=== PATIENT | male | born 1985 | race Caucasian/White ===

== ENCOUNTER → 2019-11-17 10:14 | Outpatient (CLI) | payer OTHER, SELFPAY ==
[2019-07-06 08:02] VITALS: BMI 32.1
[2019-11-17 10:56] LABS: Follicle Stimulating Hormone 3.7 mIU/mL
== END ==
DX: E29.1 Testicular hypofunction (principal)
CPT/HCPCS: 36415; 83001

== ENCOUNTER 2020-08-04 13:29 | Outpatient (RCR) | payer OTHER, SELFPAY ==
[2020-08-04] MEDS: COVID-19 VACC, MRNA(PFIZER)/PF 30 MCG/0.3 ML SYRINGE IM (08:17)
[2020-08-25] MEDS: COVID-19 VACC, MRNA(PFIZER)/PF 30 MCG/0.3 ML SYRINGE IM (07:58)
== END 2020-08-04 23:59 ==
LOC: IMMUN 13:29
PROVIDERS: PCP Student in an Organized Health Care Education/Training Program; Visit Provider Family Medicine
DX: Z23 Encounter for immunization (principal)
CPT/HCPCS: 0001A; 0002A; 91300

== ENCOUNTER 2021-06-16 13:05 | Outpatient (CLI) | payer OTHER, SELFPAY | END 2021-06-16 23:59 | disposition short-term general hospital (02) | LOC: LABSPEC 13:06 | PROVIDERS: PCP Student in an Organized Health Care Education/Training Program; Referring Provider Physician Assistant Surgical; Visit Provider Physician Assistant Surgical | DX: U07.1 COVID-19 (principal) | CPT/HCPCS: 87635; U0003; U0005 ==

== ENCOUNTER → 2022-01-04 | Outpatient (CLI) | payer OTHER, SELFPAY ==
--- NOTE | 2022-01-04 11:43 | NM_ITS ---
CLINICAL: 36-year-old male with history of gastroesophageal reflux disease. SEMI-SOLID PHASE 99m Tc SULFUR COLLOID GASTRIC EMPTYING STUDY COMPARISON: None available FINDINGS: The patient was administered 1.0 mCi of 99m Tc sulfur colloid mixed with oatmeal and consumed per os. Image acquisitions in the anterior -posterior projections were obtained for 60 minutes. There is prompt visualization of the stomach. There is no gastroesophageal reflux identified. The T ? emptying was calculated to be 38.72 minutes, (Normal: 12-56 minutes). NM/Gastric Emptying Study IMPRESSION: 1. NORMAL 99m Tc sulfur colloid semi-solid phase (oatmeal) gastric emptying imaging examination. A. There is normal and preserved semi-solid phase gastric emptying compared to normal controls with maintained first order kinetics throughout all components of the examination. (Ashish et al, J Nucl Med Tech 38: 186, 2010). Electronically Signed: Suhas Patterson, at 22:36 EDT ,
== END | disposition home or self-care (01) ==
PROVIDERS: PCP Student in an Organized Health Care Education/Training Program; Referring Provider Internal Medicine Gastroenterology; Visit Provider Internal Medicine Gastroenterology
DX: K21.9 Gastro-esophageal reflux disease without esophagitis (principal)
CPT/HCPCS: 78264; A9541

== ENCOUNTER 2022-04-25 08:55 | Emergency (ER) | payer OTHER, SELFPAY ==
[2022-04-25 08:56] VITALS: BP 135/86; PULSE 61; RESP 16; TEMP 35.5; O2SAT 100; BMI 30.7
--- NOTE | 2022-04-25 09:15 | CT_ITS ---
STUDY: CT ABDOMEN AND PELVIS WITHOUT CONTRAST REASON FOR EXAM: Male, 36 years old. Flank pain-LEFT RADIATION DOSAGE (If Supplied By Facility): CTDIvol = ( 9.48 ) mGy, DLP = ( 502.00 ) mGycm TECHNIQUE: Transaxial images were obtained from the dome of the diaphragm to the symphysis pubis without oral contrast, and without intravenous contrast. Sagittal and coronal images were reconstructed. Individualized dose optimization techniques were used for this CT. COMPARISON: None. FINDINGS: The visualized lung bases are unremarkable. The visualized portions of the heart are within normal limits. Normal liver. Findings suggestive of sludge or tiny gallstones along the dependent portion of the gallbladder lumen. Normal spleen. Normal pancreas. Normal bilateral adrenal glands. Scattered nonobstructive right intrarenal calculi. The largest calculus measures 3.2 mm. There is a 3 mm nonobstructive calculus in the lower pole calyx of the left kidney. There is a small hiatal hernia. Normal small intestine. There are scattered colonic diverticula consistent with diverticulosis. The appendix is visualized and appears normal. Normal abdominal aorta. Normal inferior vena cava. Normal retroperitoneum. There is a 2 mm calculi at the base of the bladder. This most likely represents a recently passed ureteral calculus. There is a small umbilical hernia containing fat. Small bilateral inguinal hernias containing fat. Loss of the normal lumbar lordosis. CT/Abdomen/Pelvis without Cont IMPRESSION: Nonobstructive bilateral intrarenal calculi. 2 mm calculus at the base of the bladder most likely representing a recently passed ureteral calculus. Electronically Signed: Tex Maldonado MD at 10:04 [facility] [[email or web address]] ,
--- NOTE | 2022-04-25 09:16 | EX.ED.DYSGE1 ---
HPI History of Present Illness Chief Complaint: Flank Pain Informant: patient Onset/Context/Timing Onset: Today and Hours (1) Context: Sudden Onset Timing: Continuous Quality: Sharp, cramping Location: Left flank and left lower quadrant Worsened by: Nothing Relieved by: Nothing Narrative Narrative: Patient presents with left flank pain that began approxi-1 hour prior to arrival. Patient states the pain is sharp and cramping. Patient states it is over the left flank and radiates into the left lower abdomen. Patient states nothing makes it worse and nothing makes it better. Patient states the pain stopped approximately 10 minutes ago. Patient admits to some nausea when he had the pain but denies any vomiting. Patient denies any dysuria or hematuria. Patient denies any fevers or chills. PFSH PFS Medical History ADHD GERD (gastroesophageal reflux disease) Hypercholesteremia Lab test negative for COVID-19 virus Tobacco use Vasectomy evaluation Home Medications sumatriptan succinate 100 mg tablet (Imitrex) 100 mg PO .X1 PRN 06/02/17 [History Last Taken Unknown] varenicline 1 mg tablet (Chantix) 1 mg PO DAILY 06/02/17 [History Last Taken Unknown] hydroxyzine HCl 25 mg tablet 25 mg PO Q6H 08/17/21 [History Last Taken Unknown] lisdexamfetamine 50 mg capsule 50 mg PO DAILY 08/17/21 [History Last Taken Unknown] rabeprazole 20 mg tablet,delayed release (AcipHex) 20 mg PO DAILY 30 days #30 tabs 01/01/22 [Rx Last Taken Unknown] Allergy/AdvReac Type Severity Reaction Status Date / Time amoxicillin Allergy Hives Verified 04/25/22 08:58 Sulfa (Sulfonamide Allergy Hives Verified 04/25/22 08:58 Antibiotics) sulfamethoxazole Allergy Hives Verified 04/25/22 08:58 [From ] trimethoprim [From ] Allergy Hives Verified 04/25/22 08:58 Social History Smoking Status: Current some day smoker tobacco type: cigarettes ROS ROS ED Constitutional Constitutional ED: Denies chills or fever(s) Eyes Eyes: Denies blurry vision or change in vision ENT ENT ED: Denies rhinorrhea or sore throat Cardiovascular Cardiovascular: Denies chest pain or palpitations Respiratory/Chest Respiratory/Chest: Denies cough or dyspnea Gastrointestinal Gastrointestinal: Reports nausea; Denies vomiting Genitourinary Genitourinary ED: Denies dysuria or hematuria Musculoskeletal Musculoskeletal: Reports back pain; Denies neck pain Integumentary Denies abscess or rash Neurologic Neurologic: Denies headache(s) or weakness Allergic/Immunologic Allergic/Immunologic ED: Denies mouth swelling or urticaria EXAM Physical Exam Const Vital Signs: 04/25/22 08:56 Temperature 96 F L Temperature Source Temporal Pulse Rate 61 Respiratory Rate 16 Blood Pressure 135/86 H Blood Pressure Mean 102 Pulse Ox 100 Oxygen Delivery Method Room Air Positive well nourished and well developed General Appearance ED: well developed and NAD HEENT Reports moist mucous membranes Neck supple and no JVD Resp normal respiratory effort and clear to auscultation bilaterally Cardio regular rate, regular rhythm and no murmurs GI normal to inspection, nondistended, normoactive bowel sounds and non-tender Palpation: soft Extremity normal to inspection General Extremety ED: Negative for edema or tenderness General Extremity: Negative for edema Neuro oriented x3, CN's II-XII intact bilaterally and no sensory deficits noted Sensorium / Orientation: alert Motor Exam: strength 5/5 throughout Psych mental status grossly normal Skin no rashes or lesions noted MDM MDM MDM Narrative Medical decision making narrative: Scan of the abdomen pelvis was obtained. There is a 2 mm calculus at the base of the bladder. This most likely represents a recently passed ureteral calculus. There is no evidence of hydronephrosis or hydroureter. This was interpreted by the radiologist and reviewed by myself. Urinalysis does not show any evidence of urinary tract infection or hematuria. Patient is feeling better on reevaluation. Patient states he passed what he thought was a stone in his urine. Patient was advised of his findings. Patient was instructed to follow-up with his primary care physician in 5 to 7 days. Patient understood and was agreeable with the plan. All questions were answered. Lab Data Labs: Laboratory Results - last 24 hr 04/25/22 10:30 Urine Color Yellow Urine Clarity Clear Urine pH 8.0 Ur Specific [place] 1.010 Urine Protein Negative Urine Glucose (UA) Normal Urine Ketones Negative Urine Occult Blood 150 H Urine Nitrite Negative Urine Bilirubin Negative Urine Urobilinogen Normal Ur Leukocyte Esterase Negative Radiography Diagnostic Testing: Clinical Impression(s) from Imaging Studies Abdomen/Pelvis CT 04/25/22 09:15 IMPRESSION: Nonobstructive bilateral intrarenal calculi. 2 mm calculus at the base of the bladder most likely representing a recently passed ureteral calculus. Electronically Signed: Tex Maldonado MD at 10:04 EST , Discharge Plan Triage Chief Complaint: Flank Pain ED Provider: Edilson Huddleston Dx/Rx/DC Orders Clinical Impression: Ureteral calculus, Left flank pain Instructions: ED Kidney Stone, Passed Prescriptions: No Action hydroxyzine HCl 25 mg tablet 25 mg PO Q6H lisdexamfetamine 50 mg capsule 50 mg PO DAILY sumatriptan succinate [Imitrex] 100 MG tablet 100 mg PO .X1 PRN varenicline [Chantix] 1 MG tablet 1 mg PO DAILY rabeprazole [AcipHex] 20 mg tablet,delayed release (DR/EC) 20 mg PO DAILY 30 Days Qty: 30 5RF Primary Care Provider: Saroj Michel Referrals: Saroj Michel DO [Primary Care Provider] - 1-2 Weeks Disposition Disposition: Home, Self Care
[2022-04-25 10:40] LABS: Bacteria 0 SEEN /hpf (None Seen); Mucous, Urine 0 SEEN /hpf (<or=2+); Squamous Epithelial Cells - UA 0 SEEN /hpf (0-5); White Blood Cells 0 SEEN /hpf (0-5)
[2022-04-25 10:43] LABS: Color, Urine Yellow (Yellow); Glucose, Dipstick Normal (Normal); Ketone-Dipstick Negative (Negative); Leukocyte Esterase-Dipstick Negative /ul (Negative); Nitrite-Dipstick Negative (Negative); Occult Blood-Urine 150 /ul (Negative); Protein-Dipstick Negative (Negative); Urine Bilirubin Dipstick Negative (Negative); Urine Clarity Clear (Clear); Urine Urobilinogen Normal (Normal)
[2022-04-25 11:08] LABS: Red Blood Cells-Urine 10-25 SEEN /hpf (0-5)
== END 2022-04-25 11:01 | disposition home or self-care (01) ==
PROVIDERS: Emergency Provider Emergency Medicine; PCP Student in an Organized Health Care Education/Training Program; Visit Provider Emergency Medicine
DX: N20.1 Calculus of ureter (principal); F17.210 Nicotine dependence, cigarettes, uncomplicated; E78.00 Pure hypercholesterolemia, unspecified
CPT/HCPCS: 74176; 81001; 99283

== ENCOUNTER 2022-08-16 09:30 | Outpatient (RCR) | payer OTHER, SELFPAY ==
--- NOTE | 2022-07-18 10:12 | HP.PTEVAL ---
Patient's Visit Information MARIAN HAMILTON is a 36 year old M referred to Physical Therapy by Dr. Funmi Goodman, [place] with a diagnosis of . Date of Evaluation: 07/18/22 Physical Therapist: Juan Francisco Blair, PT, Cert MDT, OCS - Visit Plan Frequency: 2x /Week Duration: 4 Weeks Plan: PT INTERVETIONS JEANNE EX'S ,MANUAL THERAPY ,PROGRESSION TO DLS ,POSTURAL EX'S AND MODALITIES - Subjective This 36 y/o male presents to physical therapy with lumbar radicular symptoms . Patient has had back pain ~ 1 year ,but has had intermittent pain many years. Patient eventually seen DR Goodman for back pain. Patient had one episode of lifting patient heavy Jul 08 then had episode last driving daughter in car had pain low back . Patient has had x-rays. Patient has not seen family DR or other diagnostics. Location pain pain lumbar to radiates to hip and bilateral legs. Aggravating bending , lifting , sitting , walking ,stairs and extended walking ,sitting to elevate from chair. These symptoms are getting better. Alleviating factors prednisone. Denies paresthesia/tingling. Bowel/bladder-. Coughing/sneezing-. Patient back feels weak. Patient goals to have no more pain. SOCIAL: . 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 NUERO: denies paresthesia/tingling ,reflexes L3-4,L4-5 ,L5-S1 1/3 ,MYTOME weakness L2-3. GAIT: ambulates with left lateral shift deformity. MMT: (peak force ) hip flexion right 10.6 ,left 15.6 ,quads/hams/ankle 4/5. LUMBAR ROM: flexion min loss pain ,extension min loss ,side glides WFL - Special Tests L/S Slump test left side: Positive L/S Slump test right side: Positive L/S Left Straight Leg Raise: Negative L/S Right Straight Leg Raise: Negative Lumbar Standing: Flexion - Mechanical Response: No effect Lumbar Standing: Flexion - Symptoms During Testing: Increases Lumbar Standing: Flexion - Symptoms After Testing: Worse Lumbar Standing: Extension - Mechanical Response: No effect Lumbar Standing: Extension - Symptoms During Testing: Centralizing Lumbar Standing: Extension - Symptoms After Testing: No better Lumbar Standing: Right Side Glides - Mechanical Response: No effect Lumbar Standing: Right Side [place] - Symptoms During Testing: No effect Lumbar Standing: Right Side [place] - Symptoms After Testing: No effect Lumbar Standing: Left Side [place] - Mechanical Response: No effect Lumbar Standing: Left Side [place] - Symptoms During Testing: No effect Lumbar Standing: Left Side [place] - Symptoms After Testing: No effect Lumbar Lying: Flexion - Mechanical Response: No effect Lumbar Lying: Flexion - Symptoms During Testing: Increases Lumbar Lying: Flexion - Symptoms After Testing: Worse Lumbar Lying: Extension - Mechanical Response: No effect Lumbar Lying: Extension - Symptoms During Testing: Abolishes Lumbar Lying: Extension - Symptoms After Testing: Better - Balance/Special Test Scores Oswestry Low Back Score: 21 - Goals Goal 1:: Patient to be I with HEP for lumbar Goal Time Frame: 4-6 Weeks Goal 2:: Patient to have good lifting tech with job demands 80% of the time Goal Time Frame: 4-6 Weeks Goal 3:: Patient to improve lumbar ROM for function of recovery to tie shoes and lifting Goal Time Frame: 4-6 Weeks Goal 4:: Patient to demonstrate 90% improvement with increase function and less pain Goal Time Frame: 4-6 Weeks Goal 5:: Patient to increase peak force of hip flexion by 10 to improve function Goal Time Frame: 4-6 Weeks Goal 6:: Patient to improve back oswestry score by 5 points or > to improve QOL and job demands Goal Time Frame: 4-6 Weeks - Rehabilitation Potential Physical Therapy Diagnosis: This patient has derangement below knee with + signs of disc with pain with flexion ,sitting with symptoms worse with positioning and movement testing better with extension thus benefit from skilled PT Rehabilitation Potential: Good - Anticipated Interventions Patient/Client Instruction: Educate patient on: Condition, Plan of Care For the Purpose of:: To decrease pain, To increase ROM, To improve muscle performance and motor function, To improve ability to perform ADL's, To increase tolerance to activity/condition/position, To improve ability of physical actions for home/community/work/leisure, To improve health of tissue, To decrease soft tissue restriction, To increase flexibility/ROM, To prevent re-injury Therapeutic Exercise to Include: Strength training, Body mechanics, Postural training, Flexibilty training, Active ROM, Dynamic Lumbar Stabilization, Jeanne Exercises For the Purpose of:: To decrease pain, To increase ROM, To improve muscle performance and motor function, To improve ability to perform ADL's, To improve gait and locomotor functions, To improve health of tissue, To decrease soft tissue restriction, To increase flexibility/ROM, To reduce risk of recurrence, To prevent re-injury TENS: Yes IF ES: Yes Cryotherapy (ice pack, ice massage): Yes Thermo therapy (hot pack): Yes Ultrasound (thermal/non thermal): Yes For the Purpose of:: To decrease pain, To increase ROM, To improve muscle performance and motor function, To increase tolerance to activity/condition/position, To improve ability of physical actions for home/community/work/leisure, To improve health of tissue, To decrease soft tissue restriction, To prevent re-injury Thank you for the opportunity to evaluate your patient. For Medicare and Medicare HMO plans, please review the plan of care and approve it. It will need to be FAXED BACK to us at [phone] for Medicare purposes. For Medicare only, by signing this I certify the plan of care. Please let me know if there are questions or concerns regarding this plan of care. Physician Signature: Date:
--- NOTE | 2022-07-18 10:17 | HP.PTEVAL ---
Patient's Visit Information MARIAN HAMILTON is a 36 year old M referred to Physical Therapy by Dr. Funmi Goodman, [place] with a diagnosis of Segmental and somatic dysfunction of lumbar, Pelvis. Date of Evaluation: 07/18/22 Physical Therapist: Juan Francisco Blair, PT, Cert MDT, OCS - Visit Plan Frequency: 2x /Week Duration: 4 Weeks Plan: PT INTERVETIONS JEANNE EX'S ,MANUAL THERAPY ,PROGRESSION TO DLS ,POSTURAL EX'S AND MODALITIES - Subjective This 36 y/o male presents to physical therapy with lumbar radicular symptoms . Patient has had back pain ~ 1 year ,but has had intermittent pain many years. Patient eventually seen DR Goodman for back pain. Patient had one episode of lifting patient heavy Jul 08 then had episode last driving daughter in car had pain low back . Patient has had x-rays DDD. Patient has not seen family DR or other diagnostics. Location pain pain lumbar to radiates to hip and bilateral legs. Aggravating bending , lifting , sitting , walking ,stairs and extended walking ,sitting to elevate from chair. These symptoms are getting better. Alleviating factors prednisone. Denies paresthesia/tingling. Bowel/bladder-. Coughing/sneezing-. Patient back feels weak. Patient goals to have no more pain. SOCIAL: . VOCATION: [employer] Work[employer] - Pain Bilateral Back Pain Intensity (Out of 10): 8 Pain Intensity Range: 10 Comment: worse - Objective POSTURE: left lateral shift deformity. NUERO: denies paresthesia/tingling ,reflexes L3-4,L4-5 ,L5-S1 1/3 ,MYTOME weakness L2-3. GAIT: ambulates with left lateral shift deformity. MMT: (peak force ) hip flexion right 10.6 ,left 15.6 ,quads/hams/ankle 4/5. LUMBAR ROM: flexion min loss pain ,extension min loss ,side glides WFL - Special Tests L/S Slump test left side: Positive L/S Slump test right side: Positive L/S Left Straight Leg Raise: Negative L/S Right Straight Leg Raise: Negative Lumbar Standing: Flexion - Mechanical Response: No effect Lumbar Standing: Flexion - Symptoms During Testing: Increases Lumbar Standing: Flexion - Symptoms After Testing: Worse Lumbar Standing: Extension - Mechanical Response: No effect Lumbar Standing: Extension - Symptoms During Testing: Centralizing Lumbar Standing: Extension - Symptoms After Testing: No better Lumbar Standing: Right Side [place]ides - Mechanical Response: No effect Lumbar Standing: Right Side [place] - Symptoms During Testing: No effect Lumbar Standing: Right Side [place] - Symptoms After Testing: No effect Lumbar Standing: Left Side [place] - Mechanical Response: No effect Lumbar Standing: Left Side [place] - Symptoms During Testing: No effect Lumbar Standing: Left Side [place] - Symptoms After Testing: No effect Lumbar Lying: Flexion - Mechanical Response: No effect Lumbar Lying: Flexion - Symptoms During Testing: Increases Lumbar Lying: Flexion - Symptoms After Testing: Worse Lumbar Lying: Extension - Mechanical Response: No effect Lumbar Lying: Extension - Symptoms During Testing: Abolishes Lumbar Lying: Extension - Symptoms After Testing: Better - Balance/Special Test Scores Oswestry Low Back Score: 21 - Goals Goal 1:: Patient to be I with HEP for lumbar Goal Time Frame: 4-6 Weeks Goal 2:: 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 have good lifting tech with job demands 80% of the time Goal Time Frame: 4-6 Weeks Goal 3:: Patient to improve lumbar ROM for function of recovery to tie shoes and lifting Goal Time Frame: 4-6 Weeks Goal 4:: Patient to demonstrate 90% improvement with increase function and less pain Goal Time Frame: 4-6 Weeks Goal 5:: Patient to increase peak force of hip flexion by 10 to improve function Goal Time Frame: 4-6 Weeks Goal 6:: Patient to improve back oswestry score by 5 points or > to improve QOL and job demands Goal Time Frame: 4-6 Weeks - Rehabilitation Potential Physical Therapy Diagnosis: This patient has derangement below knee with + signs of disc with pain with flexion ,sitting with symptoms worse with positioning and movement testing better with extension thus benefit from skilled PT Rehabilitation Potential: Good - Anticipated Interventions Patient/Client Instruction: Educate patient on: Condition, Plan of Care For the Purpose of:: To decrease pain, To increase ROM, To improve muscle performance and motor function, To improve ability to perform ADL's, To increase tolerance to activity/condition/position, To improve ability of physical actions for home/community/work/leisure, To improve health of tissue, To decrease soft tissue restriction, To increase flexibility/ROM, To prevent re-injury Therapeutic Exercise to Include: Strength training, Body mechanics, Postural training, Flexibilty training, Active ROM, Dynamic Lumbar Stabilization, Jeanne Exercises For the Purpose of:: To decrease pain, To increase ROM, To improve muscle performance and motor function, To improve ability to perform ADL's, To improve gait and locomotor functions, To improve health of tissue, To decrease soft tissue restriction, To increase flexibility/ROM, To reduce risk of recurrence, To prevent re-injury TENS: Yes IF ES: Yes Cryotherapy (ice pack, ice massage): Yes Thermo therapy (hot pack): Yes Ultrasound (thermal/non thermal): Yes For the Purpose of:: To decrease pain, To increase ROM, To improve muscle performance and motor function, To increase tolerance to activity/condition/position, To improve ability of physical actions for home/community/work/leisure, To improve health of tissue, To decrease soft tissue restriction, To prevent re-injury Thank you for the opportunity to evaluate your patient. For Medicare and Medicare HMO plans, please review the plan of care and approve it. It will need to be FAXED BACK to us at [phone] for Medicare purposes. For Medicare only, by signing this I certify the plan of care. Please let me know if there are questions or concerns regarding this plan of care. Physician Signature: Date:
--- NOTE | 2022-08-16 10:18 | HP.PTDCSUM ---
It has been my pleasure to treat MARIAN HAMILTON referred by Dr. Funmi Goodman, [place], with the diagnosis of Segmental and somatic dysfunction of lumbar, Pelvis for a total of 9 visit(s). Discharge Date: 08/16/22 Please see the following information for a summary of their discharge status. Subjective: I am better. I can move a lot more. Move more with less pain.90% better but still slower at baseball practice. Pain not an issue in last 5 weeks. Activities normal at home just slow. Work is normal at this point but has not been tested. No f/u with doctor. Will continue HEP and get back to normal gym routine. Bilateral Back Pain Intensity (Out of 10): 0 % Improvement: 90 Objective/Function: Full lumbar ROM without pain or hesitation today. Good symmetrical hip flexor strength at 5/5 without pain. 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 with job demands 80% of the time Goal Progress: Goal Met Goal 3:: Patient to improve lumbar ROM for function of recovery to tie shoes and lifting Goal 4:: Patient to demonstrate 90% improvement with increase function and less pain Goal Progress: Goal Met Goal 5:: Patient to increase peak force of hip flexion by 10 to improve function Goal Progress: Goal Met Goal 6:: Patient to improve back oswestry score by 5 points or > to improve QOL and job demands Goal Progress: Goal Met Plan: d/c If there are questions or concerns regarding this patient's physical therapy, please feel free to call me at [phone]. Thank you for the referral of this patient. Sincerely, Edilson Fuentes, DPT, OCS, CSCS Balance/Gait/Functional tests - Balance/Special Test Scores Oswestry Low Back Score: 9
== END 2022-08-16 10:32 | disposition home or self-care (01) ==
LOC: PT 09:30
PROVIDERS: PCP Student in an Organized Health Care Education/Training Program; Referring Provider Chiropractor; Visit Provider Chiropractor
DX: M99.03 Segmental and somatic dysfunction of lumbar region (principal); M99.05 Segmental and somatic dysfunction of pelvic region
CPT/HCPCS: 97110; 97162; 97164

== ENCOUNTER 2023-08-14 09:00 | Outpatient (RCR) | payer OTHER, SELFPAY ==
--- NOTE | 2023-07-09 12:42 | HP.PTEVAL_ITS ---
Patient's Visit Information Visit Information Visit Information: MARIAN HAMILTON is a 37 year old M referred to Physical Therapy by Dr. Koko Fernandez MD with a diagnosis of L ankle instability. Date of Evaluation: 07/09/23 Physical Therapist: Edilson Fuentes, DPT, OCS, CSCS Visit Plan Frequency: 1x/Week Duration: 4 Weeks Plan: weekly as needed(more frequent if pain returns) to teach and progress prop rioceptive and strength ex for ankle maintenance. Consider increase frequency for modalities if pain returns Subjective Subjective: L ankle is the problem. Has been on prednisone which helped make him painfree. Gone after starting the medicine. Last pill taking today. it hurt for two weeks without a reason. pain was lateral and just woke up with it one day. No foot pain, just laterally t ankle and into vargas. Was working [employer] and woke at night for a call and could not hardly walk(shortly after this started). Saw Jim who gave ned brace. Brace helps. Sent to foot doctor and got prednisone a week later and is unstable. Likely stemmed from sprain in HS. More supportive shoes help. Uses brace at home without boots. Scale Agent adn has worked through the pain. Worst was putting boots on. Worse in the am. Sleeping Ok now. 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 low time of year. Will start [employer] in July Objective Objective: Walks into PT with boots on and I with no gait deviations. Trasnfers I bed and chair today. No pain in a week. last prednisone today. AROM B ankles near symmetrical except for DF 1 on L and 3 on R. Gastroc and soleus tight min B. strength ankle is slightly weaker L DF vs R but not painful, ev/inv/PF are symmetrical adn without pain. sensation WNL to gross light touch. Toe and heel walking I and painfree. Balance/Special Test Scores Lower Extremity Functional Score: 27 Goals Goal 1:: I appropriate ROM adn strength adn proprioceptive ex to limit chances of futre problems. Goal Time Frame: 2-4 Weeks Goal 2:: Maintain painfree status after being off prednisone and starting preventative ex. Goal Time Frame: 2-4 Weeks Rehabilitation Potential Physical Therapy Diagnosis: L ankle instability causing pain and limiting function comfort. Rehabilitation Potential: Good Anticipated Interventions Patient/Client Instruction: Educate patient on: Condition For the Purpose of:: To improve ability of physical actions for home/community/work/leisure and To improve gait and locomotor functions Therapeutic Exercise to Include: Strength training, Balance training, Coordination, Flexibilty training and Gait and locomotor training For the Purpose of:: To decrease pain, To improve nutrient delivery to tissue and To increase tolerance to activity/condition/position Text: Thank you for the opportunity to evaluate your patient. For Medicare and Medicare HMO plans, please review the plan of care and approve it. It will need to be FAXED BACK to us at [phone] for Medicare purposes. For Medicare only, by signing this I certify the plan of care. Please let me know if there are questions or concerns regarding this plan of care. Physician Signature: Date:
--- NOTE | 2023-08-14 09:08 | HP.PTDCSUM ---
Discharge Summary D/C summary: It has been my pleasure to treat MARIAN HAMILTON referred by Dr. Koko Fernandez MD, with the diagnosis of L ankle instability for a total of 3 visit(s). Discharge Date: 08/14/23 Please see the following information for a summary of their discharge status. Subjective Subjective: Ankle is really good. No pain in 2 weeks. HEP going well. ROM is better. Life is normal. Still feels alittle loss of ROM. Overall Improvement % Improvement: 95 Objective Objective/Function: 15 degrees of everison, 5 degrees DF. Walking normal dips with foam are 2-3 at a time before needing to touch. Goals Goal 1:: I appropriate ROM adn strength adn proprioceptive ex to limit chances of futre problems. Goal Progress: Goal Met Goal 2:: Maintain painfree status after being off prednisone and starting preventative ex. Goal Progress: Goal Met Plan Plan: d/c D/C Information Discharge Comments: Top continue via HEP and see doctor in about two weeks. d/c sentence: If there are questions or concerns regarding this patient's physical therapy, please feel free to call me at [phone]. Thank you for the referral of this patient. Sincerely, Edilson Fuentes, DPT, OCS, CSCS Balance/Gait/Functional tests Balance/Special Test Scores Lower Extremity Functional Score: 77 Improvement % Improvement: 95
== END 2023-08-14 19:00 | disposition home or self-care (01) ==
LOC: PT 09:00
PROVIDERS: PCP Student in an Organized Health Care Education/Training Program; Referring Provider Orthopaedic Surgery Sports Medicine; Visit Provider Orthopaedic Surgery Sports Medicine
DX: M25.372 Other instability, left ankle (principal); S93.492D Sprain of other ligament of left ankle, subsequent encounter
CPT/HCPCS: 97161; 97530

== ENCOUNTER 2023-10-09 20:17 | Emergency (ER) | payer OTHER, SELFPAY ==
[2023-10-09 20:17] VITALS: BP 154/95; PULSE 82; PULSE 88; RESP 19; TEMP 36.4; O2SAT 99; BMI 31.4
[2023-10-09 20:48] LABS: Absolute Lymphocyte Count 2.32 X10^3/uL (0.83-4.51); Absolute Neutrophil Count 5.5 X10^3/uL (2.0-7.7); Basophil# 0.09 X10^3/uL; Eosinophil# 0.22 X10^3/uL; Eosinophils% 2.4 % (0-5); Hematocrit 45.1 % (40-54); Hemoglobin 14.7 g/dL (13.0-16.5); Lymphocyte # 2.32 X10^3/ul (0.83-4.51); Lymphocyte % 25.8 % (19-41); Mean Corp Hgb Conc 32.6 g/dL (32-36); Mean Corpuscular Hgb 28.5 pg (27.0-32.0); Mean Corpuscular Volume 87.4 fL (80-94); Mean Platelet Vol. 10.2 fl (6.2-12.0); Monocyte# 0.83 X10^3/uL; Monocyte% 9.2 % (0-10); NRBC Flagged by Analyzer 0 % (0-5); Neutrophil % 61.3 % (47-70); Platelet Count 301 K/mm3 (150-450); RBC Distribution Width CV 13.6 % (11.6-14.6); RBC Distribution Width SD 43.9 fl (35.1-43.9); Red Blood Count 5.16 M/mm3 (4.6-6.2)
--- NOTE | 2023-10-09 20:55 | RAD_ITS ---
STUDY: X-RAY CHEST REASON FOR EXAM: Male, 38 years old. chest pain TECHNIQUE: Single AP portable view of the chest. COMPARISON: None. FINDINGS: The lungs are clear and expanded. There is no demonstrated pleural abnormality. Normal size heart. Normal mediastinum and ania. Normal visualized pulmonary arteries. Normal visualized aortic arch and descending thoracic aorta. Normal visualized thoracic spine. Normal visualized ribs, clavicles, and shoulders. There is no demonstrated abnormality of the visualized soft tissue structures of the upper abdomen. RAD/Chest 1 View (Portable) IMPRESSION: Normal x-ray examination of the chest. Electronically Signed: Suhas Michaels MD at 21:34 EDT ,
[2023-10-09 20:56] VITALS: O2SAT 95
[2023-10-09 21:06] LABS: Anion Gap 3 (5-15); BUN 16 mg/dL (7-18); BUN/Creat Ratio 13.4 RATIO (10-20); Calcium,Total 9.2 mg/dL (8.5-10.1); Chloride 106 mmol/L (98-107); Creatinine, Serum 1.19 mg/dL (0.70-1.30); EST Glomerular Filtration Rate 73 mL/min (>60); Est Glom Filt Rate - Afr Amer 89 mL/min (>60); Estimated Creatinine Clearance 89.41 ml/min; Glucose 90 mg/dL (74-106); Potassium 3.7 mmol/L (3.5-5.1); Sodium Level 137 mmol/L (136-145); Troponin-I HS (w/2H Reflex) 4 pg/mL (3.0-78.0)
[2023-10-09 21:17] VITALS: BP 154/107; PULSE 80; RESP 12; O2SAT 96
--- NOTE | 2023-10-09 21:30 | EDS_ITS ---
HPI History of Present Illness Chief Complaint: Chest Pain Informant: patient Onset/Context/Timing Onset: Days Activity at onset: sudden Timing: Intermittent Quality: Positive for Tightness Location: Substernal and Right Chest Worsened By: Exertion Relieved By: Nothing Narrative Narrative: Patient presents with palpitations and chest pain that has been intermittent for the past couple days. Patient states that today it has been constant for the past several hours. Patient states it is over the substernal area. Patient states that 4 days ago it was mainly over the right side of his chest. Patient states that tonight the pain got worse with going up some stairs. Patient states nothing seems to help with it. Patient admits to some palpitations where he feels like his heart is beating hard and he feels like he can feel every heartbeat. Patient denies any nausea or vomiting. Patient denies any diaphoresis. Patient denies any shortness of breath or cough. Patient denies any lightheadedness or dizziness. CVD Risk Factors: Negative for Hypertension, Diabetes, Hypercholesterolemia, Family History 1' </=55 or Smoking PE Risk Factors: Negative for Recent Travel/Surgery, Recent Immobilization, Prior DVT or PE, Cancer or OCP + Smoking + >/=35 PFSH [facility] Medical History (Updated 10/09/23 @ 22:[address] Edilson Huddleston, DO) Hemorrhoids Traumatic brain injury Left ankle instability Hypercholesteremia Vasectomy evaluation ADHD Tobacco use GERD (gastroesophageal reflux disease) Lab test negative for COVID-19 virus Home Medications ?Medication ?Instructions ?Recorded ?Last Taken ?Type sumatriptan succinate 100 mg 100 mg PO .X1 PRN 06/02/17 Unknown History tablet (Imitrex) rabeprazole 20 mg tablet,delayed 20 mg PO DAILY 30 days #30 tabs 05/07/22 Unknown Rx release (AcipHex) lisdexamfetamine 50 mg capsule 70 mg PO DAILY 06/25/23 Unknown History Allergy/AdvReac Type Severity Reaction Status Date / Time amoxicillin Allergy Hives Verified 07/09/23 08:08 Sulfa (Sulfonamide Allergy Hives Verified 07/09/23 08:08 Antibiotics) sulfamethoxazole (From Allergy Hives Verified 07/09/23 08:08 Septra) trimethoprim (From Janra) Allergy Hives Verified 07/09/23 08:08 Surgical History (Updated 10/09/23 @ 22:[address] Edilson Huddleston, DO) Hx of vasectomy Social History Smoking Status: Current some day smoker tobacco type: cigarettes ROS ROS ED Constitutional Constitutional ED: Denies chills or fever(s) Eyes Eyes: Denies blurry vision or change in vision ENT ENT ED: Denies rhinorrhea or sore throat Cardiovascular Cardiovascular: Reports chest pain and palpitations Respiratory/Chest Respiratory/Chest: Denies cough or dyspnea Gastrointestinal Gastrointestinal: Denies nausea or vomiting Genitourinary Genitourinary ED: Denies dysuria or hematuria Musculoskeletal Musculoskeletal: Denies back pain or neck pain Integumentary Denies abscess or rash Neurologic Neurologic: Denies headache(s) or weakness Allergic/Immunologic Allergic/Immunologic ED: Denies mouth swelling or urticaria EXAM Physical Exam Const Vital Signs: 10/09/23 20:17 10/09/23 20:17 10/09/23 20:56 Temperature 97.6 F L Temperature Source Temporal Pulse Rate 88 82 Respiratory Rate 19 H 19 H Respiratory Effort Blood Pressure 154/95 H 154/95 H Blood Pressure Mean 114 114 Pulse Ox 99 99 95 Oxygen Delivery Method Room Air Room Air Room Air 10/09/23 20:56 10/09/23 21:17 10/09/23 22:00 Temperature Temperature Source Pulse Rate 80 81 Respiratory Rate 12 18 Respiratory Effort Normal Blood Pressure 154/107 H 148/97 H Blood Pressure Mean 122 114 Pulse Ox 96 95 Oxygen Delivery Method Room Air Room Air Positive well nourished and well developed General Appearance ED: well developed and NAD HEENT Reports moist mucous membranes Neck supple and no JVD Resp normal respiratory effort and clear to auscultation bilaterally Cardio regular rate and regular rhythm GI soft to palpation, non-tender and non-distended Neuro oriented x3, CN's II-XII intact bilaterally and no sensory deficits noted Sensorium / Orientation: awake and alert Motor Exam: strength 5/5 throughout Psych mental status grossly normal Heart Score History: Moderately Suspicious ECG: Normal Age: </= 45 years Risk Factors: No Risk Factors Troponin: </= Normal Limit Score: 1 MDM MDM MDM Narrative Medical decision making narrative: Differential diagnosis includes cardiac dysrhythmia, cardiac ischemia, pneumonia, pneumothorax, electrolyte abnormality, gastroesophageal reflux disease, and anxiety. EKG will be obtained to assess for cardiac dysrhythmia and cardiac ischemia. Chest x-ray will be obtained to assess for pneumonia and pneumothorax. CBC will be obtained to assess for leukocytosis and anemia. Basic metabolic profile will be obtained to assess for electrolyte abnormality and renal function. High-sensitivity troponin will be obtained to assess for cardiac ischemia. 2-hour repeat high-sensitivity troponin will be obtained to assess for ongoing cardiac ischemia. Lab Data Attestation: I reviewed the patient's lab results. Lab results narrative: CBC was reviewed and was within normal limits. Basic metabolic profile was reviewed and was within normal limits. Initial high-sensitivity troponin was reviewed and was normal at 4. 2-hour repeat troponin was reviewed and was less than 3. Labs: Laboratory Results - last 24 hr 10/09/23 10/09/23 20:40 23:20 WBC 9.0 RBC 5.16 Hgb 14.7 Hct 45.1 MCV 87.4 MCH 28.5 MCHC 32.6 RDW Std Deviation 43.9 RDW Coeff of George 13.6 Plt Count 301 MPV 10.2 Immature Gran % (Auto) 0.300 Neut % (Auto) 61.3 Lymph % (Auto) 25.8 Chester % (Auto) 9.2 Eos % (Auto) 2.4 Baso % (Auto) 1.0 Absolute Neuts (auto) 5.5 Absolute Lymphs (auto) 2.32 Nucleated RBC % 0 Sodium 137 Potassium 3.7 Chloride 106 Carbon Dioxide 28.0 Anion Gap 3 L BUN 16 Creatinine 1.19 Estim Creat Clear Calc 89.41 Est GFR (MDRD) Af Amer 89 Est GFR (MDRD) Non-Af 73 BUN/Creatinine Ratio 13.4 Glucose 90 Calcium 9.2 Troponin I High Sens 4 < 3 L Radiography Chest X-Ray - ED: 1 View, Read by ED Physician, Read by Radiologist and No Acute Disease Diagnostic Testing: Clinical Impression(s) from Imaging Studies Chest X-Ray 10/09/23 20:55 IMPRESSION: Normal x-ray examination of the chest. Electronically Signed: Suhas Michaels MD at 21:34 EDT , Portable 1 view chest x-ray was obtained. On my independent interpretation, lung tipton are clear. There is normal cardiac silhouette. Bony thorax is normal. There is no acute process noted. Radiologist also interpreted the x- ray and agrees. EKG Initial EKG: Attestation: I personally reviewed and interpreted this EKG as follows: Interpretation: Sinus Rhythm (84) and No Acute Injury Pattern Comments: EKG was obtained. On my independent interpretation, it showed a normal sinus rhythm with a rate of 84. UT interval, QRS interval, and QTc intervals were all normal. Beebe was normal. There are no acute ST or T wave changes. Prior EKG tracings: available for review Prior: Unchanged (03/16/2019) Treatment and Re-Evaluation :: Patient was advised of his findings. Patient has a HEART score of 1. Patient was advised that this is low risk for acute cardiac event. Patient was instructed to follow-up with his primary care physician in 5 to 7 days. Patient understood and was agreeable with the plan. All questions were answered. Discharge Plan Triage Chief Complaint: Chest Pain ED Provider: Edilson Huddleston Dx/Rx/DC Orders Clinical Impression: Chest pain, Palpitations Instructions: ED Chest Pain, Uncertain Cause, ED Palpitations Prescriptions: No Action lisdexamfetamine 50 mg capsule 70 mg PO DAILY sumatriptan succinate [Imitrex] 100 MG tablet 100 mg PO .X1 PRN rabeprazole [AcipHex] 20 mg tablet,delayed release (DR/EC) 20 mg PO DAILY 30 Days Qty: 30 5RF Primary Care Provider: Saroj Michel Referrals: Saroj Michel, DO [Primary Care Provider] - 5-7 Days Print Language: Kinyarwanda Disposition Disposition: Home, Self Care
[2023-10-09 22:00] VITALS: BP 148/97; PULSE 81; RESP 18; O2SAT 95
[2023-10-09 22:46] LABS: Reflex Troponin-HS? (from REC) Y
[2023-10-09 23:44] LABS: Troponin-I HS < 3 pg/mL (3.0-78.0)
[2023-10-10] VITALS: BP 145/78; PULSE 80; RESP 16; O2SAT 96
[2023-10-10 00:27] VITALS: BP 145/78; PULSE 80; RESP 16; TEMP 36.5; O2SAT 96
== END 2023-10-10 00:28 | disposition home or self-care (01) ==
PROVIDERS: Emergency Provider Emergency Medicine; PCP Student in an Organized Health Care Education/Training Program; Visit Provider Emergency Medicine
DX: R07.9 Chest pain, unspecified (principal); R00.2 Palpitations; F17.210 Nicotine dependence, cigarettes, uncomplicated; K21.9 Gastro-esophageal reflux disease without esophagitis; Z79.899 Other long term (current) drug therapy; F90.9 Attention-deficit hyperactivity disorder, unspecified type; Z98.52 Vasectomy status
CPT/HCPCS: 71045; 80048; 84484; 85025; 93005; 99284; A4216

== ENCOUNTER → 2023-10-30 | Outpatient (CLI) | payer OTHER, SELFPAY | END | disposition home or self-care (01) | LOC: LABSPEC 12:27 | PROVIDERS: PCP Student in an Organized Health Care Education/Training Program; Referring Provider Internal Medicine Gastroenterology; Visit Provider Internal Medicine Gastroenterology | DX: R19.7 Diarrhea, unspecified (principal); K58.9 Irritable bowel syndrome, unspecified | CPT/HCPCS: 82274; 82653; 82705; 83630; 83993; 87177; 87209; 87329; 87493; 87506 ==

== ENCOUNTER → 2023-11-05 | Outpatient (CLI) | payer OTHER, SELFPAY | END | disposition home or self-care (01) | LOC: LABSPEC 09:59 | PROVIDERS: PCP Student in an Organized Health Care Education/Training Program; Referring Provider Internal Medicine Gastroenterology; Visit Provider Internal Medicine Gastroenterology | DX: Z00.00 Encounter for general adult medical examination without abnormal findings (principal) ==

== ENCOUNTER → 2023-11-19 | Outpatient (CLI) | payer OTHER, SELFPAY ==
[2023-11-19 13:44] LABS: Free T3 2.9 pg/mL (2.18-3.98); Thyroid Stim Hormone (TSH) 1.88 uIU/mL (0.358-3.74)
== END | disposition home or self-care (01) ==
LOC: LAB 12:08
PROVIDERS: PCP Student in an Organized Health Care Education/Training Program; Referring Provider Student in an Organized Health Care Education/Training Program; Visit Provider Student in an Organized Health Care Education/Training Program
DX: R00.2 Palpitations (principal)
CPT/HCPCS: 36415; 84439; 84443; 84481

== ENCOUNTER → 2023-12-09 | Outpatient (CLI) | payer OTHER, SELFPAY ==
[2023-12-09 08:15] LABS: Hematocrit 47.3 % (40-54); Hemoglobin 15.6 g/dL (13.0-16.5)
== END | disposition home or self-care (01) ==
PROVIDERS: PCP Student in an Organized Health Care Education/Training Program; Referring Provider Internal Medicine Gastroenterology; Visit Provider Internal Medicine Gastroenterology
DX: K92.2 Gastrointestinal hemorrhage, unspecified (principal)
CPT/HCPCS: 36415; 85014; 85018

== ENCOUNTER 2023-12-11 06:46 | Day surgery (SDC) | payer OTHER, SELFPAY ==
[2023-12-11] VITALS (8 sets, daily range): BP systolic 107–120; BP diastolic 64–85; PULSE 68–77; RESP 16; TEMP 35.9–36.4; O2SAT 98–100; BMI 31.6
[2023-12-11] MEDS: Lactated Ringers 1,000 ML 15 ML IV (07:03)
--- NOTE | 2023-12-11 07:31 | HP.PCM_ITS ---
History and Physical Date of Admission: 12/11/23 MARIAN HAMILTON, is a 38 M who presents to the office today for follow up. OV 11.08.23 pt reports he started noticing blood in his stool about a month ago; there were flecks of black in the stool and the water in the toilet was bright red, is not as bad as it had been, but his stool sample on 10.30.23 came back positive for blood. Pt reports that he possibly has hemorrhoids. Pt reports that he has started taking a fiber supplement and a stool softener since the blood in the stool began. Continues with Rabeprazole. ROS Const Constitutional: Positive for fatigue; No fever(s) or weight change ENT ENT: No difficulty swallowing Gastro GI: Positive for change in bowel habits and Blood in stool; No abdominal pain, belching, bloating, change in stool character, coffee ground emesis, constipation, cramping, diarrhea, heartburn, difficulty swallowing, feeling full early, excessive flatus, incontinent of stools, Vomiting blood/hematemesis, loose stools, Black,tarry stools, nausea/dyspepsia, pain with swallowing, vomiting or other Musc Musculoskeletal: No joint pain Skin Skin: No yellowing of the eye or itchy eyes Psych Psychiatric: No anxiety, No depression and Positive for inattentiveness Endo Endocrine: Positive for fatigue; No weight change Aller/Imm Allergy/Immunologic: No itchy eyes Shaka/Lymp Hematologic/Lymphatic: No easy bleeding or easy bruising Exam Const General: cooperative, healthy appearing, comfortable and no acute distress Nutritional Appearance: well nourished Orientation: alert, awake and oriented x3 [facility] Head: normal to inspection Ears: hearing grossly normal bilaterally, external ears normal, TM's normal bilaterally and EAC's normal Nose: external nose normal, nares normal, septum normal and no nasal discharge Face and sinus: normal facial exam, sinuses nontender and face symmetric Mouth: oral mucosae normal, lip normal, tongue normal and oropharynx normal Throat: posterior oropharynx normal, tonsils normal, uvula midline and no postnasal drainage Eyes General: appearance normal, both eyes and all related structures Neck Neck: normal visual inspection, full ROM, no lymphadenopathy, no meningeal signs and supple Neck mass: No Thyroid: thyroid normal Lymphatic: no lymphadenopathy noted Chest Chest palpation & inspection: normal inspection of the chest Resp Effort & Inspection: normal respiratory effort, able to speak in complete sentences, symmetric chest movement and no cough Auscultation: Bilateral: Clear to Auscultation Cardio Palpation: normal PMI Rate: regular rate Rhythm: regular rhythm Heart Sounds: S1 normal, S2 normal, no gallops, no murmurs and no rubs Pulses: radial pulses present GI Inspection: normal to inspection Palpation: soft and no hepatosplenomegaly Skin General: no rashes or lesions noted Neuro General: patient alert, patient awake, patient oriented x3 and gait normal Cognition: normal cognition Speech: speech normal Gait: normal gait Motor: muscle tone normal throughout Sensory Exam: no sensory deficits noted Psych Appearance: grossly normal Mental Status: mental status grossly normal Mood: congruent mood Affect: normal affect Speech and Movement: speech and movement normal Attitude: cooperative Thought Process: normal Thought Content: normal Judgment: judgment good Assessment and Plan Assessment and Plan (1) GI bleed: Status: Acute Plan: 38-year-old gentleman with no significant past medical history who comes in with lower GI bleed. Differential diagnosis does include hemorrhoidal disease, anal fissure, stercoral ulcer, and less likely ulcerative proctitis. He will undergo colonoscopy with possible treatment of hemorrhoidal disease with banding plus or minus Botox therapy for anal fissure. He was explained alternatives, risk, benefits including not withstanding bleeding, infection, sepsis, perforation, need for charge and . He will have an ASA of 3. I have examined the patient and the H&P has been reviewed. There are no clinical changes since date of exam.
--- NOTE | 2023-12-11 07:54 | PCM.PRE.AN2 ---
ASA Classification* ASA Classification ASA Classification: 1 Assessment & Plan Anesthesia* Anesthesia Assessment Anesthesia Assessment: Discussed sedation and/or anesthesia options, risks, benefits, and alternatives with patient/parents/legal guardian/POA. Questions invited. The patient/parents/legal guardian/POA seems to understand and agrees to proceed with anesthesia plan. Reviewed the physical assessment, medical history, allergy history and patient home medications list prior to surgery/procedure/anesthetic and documented any changes. Performed airway and anesthesia risk assessments. Anesthesia Type Anesthesia Type: MAC History Source History Obtained from:: Patient and Chart Anesthesia Focused Assessment* Temperature: 97.3 F Pulse Rate: 77 Blood Pressure: 120/77 Respiratory Rate: 16 Pulse Ox: 98 Oxygen Delivery Method: Room Air Airway Assessment Mouth opens: 1 cm Mallampati Score: I Teeth Condition: Intact Neck Range of motion (ROM): Full ROM Pertinent Findings EKG Pertinent Findings:: October 09, 2023. Normal sinus rhythm Focused Labs Anesthesia Preop lab: CBC WBC 9.0 K/mm3 (4.4-11.0) 10/09/23 20:40 RBC 5.16 M/mm3 (4.6-6.2) 10/09/23 20:40 Hgb 15.6 g/dL (13.0-16.5) 12/09/23 08:00 Hct 47.3 % (40-54) 12/09/23 08:00 Plt Count 301 K/mm3 (150-450) 10/09/23 20:40 CHEMISTRY Potassium 3.7 mmol/L (3.5-5.1) 10/09/23 20:40 Sodium 137 mmol/L (136-145) 10/09/23 20:40 BUN 16 mg/dL (7-18) 10/09/23 20:40 Creatinine 1.19 mg/dL (0.70-1.30) 10/09/23 20:40 Glucose 90 mg/dL (74-106) 10/09/23 20:40 TSH 1.88 uIU/mL (0.358-3.74) 11/19/23 12:13 COAG Pre-Assessment Diagnosis/Proposed Procedure Planned Operative Procedure(s): COLONOSCOPY/EGD Anesthesia History 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 When Was Last Pacemaker Check QUESTION #4 FULL TEXT: You/Your Family Experience fever (hyperthermia) with Anesthesia Last Oral Intake Last Oral intake: Last Oral Intake NPO since 04:00 12/11/23 07:04 Meds taken in AM with sips of No 12/11/23 07:04 water? Meds patient instructed to take am of surgery PONV PONV - lunchroom operator: PONV - lunchroom operator Female No 12/10/23 11:38 HX of Motion Sickness No 12/10/23 11:38 HX of N/V After Surgery No 12/10/23 11:38 Non-Smoker No 12/10/23 11:38 Duration of Surgery greater No 12/10/23 11:38 than 60 minutes Number of Risk Factors PONV Score Height & Weight Height & Weight: Anesthesia: Height & Weight Height 5 ft 6 in 12/11/23 07:04 Weight: 89 kg 12/11/23 07:04 Body Mass Index (BMI) 31.6 12/11/23 07:04 Respiratory Assessment Respiratory Assessment - lunchroom operator: Respiratory Tract Infection Hx - lunchroom operator Hx Respiratory Tract Infection No 12/10/23 11:38 STOP Sleep Apnea STOP Sleep Apnea - lunchroom operator: STOP Sleep Apnea - lunchroom operator Hx Hypertension No 12/10/23 11:38 Hx Sleep Apnea No 12/10/23 11:38 CPAP BIPAP Do you snore loudly (louder Yes 12/10/23 11:38 than talking or can be heard Do you often feel tired/ No 12/10/23 11:38 fatigued/ sleepy during daytime? Has anyone observed you stop No 12/10/23 11:38 breathing during sleep? STOP Results Negative 12/10/23 11:38 QUESTION #5 FULL TEXT : Do you snore loudly (louder than talking or can be heard through closed doors)? 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 Specify any problems Hx of Preganancy in last 3 N/A 12/10/23 11:38 Months Nurse Filling Out Transfusion VCHRISTIN 12/10/23 11:38 & Questions: Date: 12/10/23 12/10/23 11:38 Time: 11:40 12/10/23 11:38 Patient unable to answer at this time (ie. confused, unrespo /Reproduction History /Reproductive History - lunchroom operator: /Reproductive Hx- lunchroom operator Hx Now Gestational Age (in weeks): EDC: Hx Hx Para Hx Section SAB Active Medications Active Medications: Current Medications Generic Name Dose Route Start Last Admin Trade Name Freq PRN Reason Stop Dose Admin Lactated Ringer's 1,000 mls @ 15 mls/hr 12/11/23 07:00 12/11/23 07:03 IV 15 mls/hr .Q48H DANNY Administration Lactated Ringer's 1,000 mls @ 15 mls/hr 12/11/23 07:00 12/11/23 07:00 IV Not Given .Q48H DANNY PFSH Medical History Wears glasses Wears contact lenses Kidney stones Migraine headache Injury of head and neck Gastric reflux Chewing tobacco dependence Asthma History of stress test Hemorrhoids Traumatic brain injury Left ankle instability Hypercholesteremia Vasectomy evaluation ADHD Tobacco use GERD (gastroesophageal reflux disease) Lab test negative for COVID-19 virus Home Medications ?Medication ?Instructions ?Recorded ?Last Taken ?Type sumatriptan succinate 100 mg 100 mg PO .X1 PRN 06/02/17 Unknown History tablet (Imitrex) rabeprazole 20 mg tablet,delayed 20 mg PO DAILY 30 days #30 tabs 05/07/22 12/10/23 Rx release (AcipHex) lisdexamfetamine 50 mg capsule 70 mg PO DAILY 06/25/23 12/10/23 History dextroamphetamine-amphetamine 20 20 mg PO DAILY 12/10/23 12/10/23 History mg tablet (Adderall) multivitamin (Daily Multi-Vitamin 1 tab PO DAILY 12/10/23 12/10/23 History tablet) Allergy/AdvReac Type Severity Reaction Status Date / Time amoxicillin Allergy Hives Verified 12/11/23 07:03 Sulfa (Sulfonamide Allergy Hives Verified 12/11/23 07:03 Antibiotics) sulfamethoxazole (From Allergy Hives Verified 12/11/23 07:03 Septra) trimethoprim (From ) Allergy Hives Verified 12/11/23 07:03 Surgical History Hx of vasectomy Social History Smoking Status: Current every day smoker tobacco type: smokeless tobacco Review of Systems (Anesthesia) ROS Narrative System reviewed and no additional complaints, except as documented.
--- NOTE | 2023-12-11 08:00 | EGD_PTH ---
PATIENT: MARIAN HAMILTON LOC: EN U#:[id number] AGE/SX: 38/M ROOM: RE12/11/[address]: Dr. Eagle Aguayo DO : 1985 BED: DIS: 12/11/2023 SPEC #: [id number] RECD: 12/11/23 13:11 STATUS: DRU FERNANDO #: [id number] VIET: 12/11/23 08:[address]: Eagle Aguayo DEPT: SURGICAL PATHOLOGY RECD BY: Guadalupe Mendez ENTERED: 12/11/23 13:46 SP TYPE: EGD BIOPSY OT DR: Dr. Saroj Michel DO Tissues: A - Duodenum, NOS B - Gastric mucous membrane C - Esophagus, NOS D - Esophagus, NOS E - Ileum, NOS Procedures: Special Stain Group I Surgery Specimen Level IV Alcian Blue/PAS (control) HEADER OPERATION: Colonoscopy, EGD with biopsies PRE-OP DIAGNOSIS: GI bleed TISSUE SUBMITTED: A- Duodenum biopsy, B- Gastric antrum, C- Distal esophagus, D- Proximal esophagus biopsy, E- Terminal ileum biopsy MICROSCOPIC DIAGNOSIS A. Duodenum, biopsy: Fragments of duodenal mucosa with congestion. B. Gastric antrum, biopsy: Mild gastritis. See microscopic description and comment. C. Distal esophagus, biopsy: Fragments of gastroesophageal mucosa with congestion and chronic inflammation. Intestinal metaplasia (goblet cell metaplasia) not identified. See comment. D. Proximal esophagus, biopsy: A fragment of gastroesophageal mucosal with chronic inflammation. Intestinal metaplasia (goblet cell metaplasia) not identified. See comment. E. Terminal ileum, biopsy: Fragments of small intestinal mucosa, no pathologic diagnosis. / 12/12/2023 COMMENT B. The results of immunohistochemistry for Helicobacter pylori will be reported separately ([id number]). C & D. Alcian blue/PAS stain with matched control is used in the evaluation of the specimen. MICROSCOPIC DESCRIPTION Slides are reviewed. B. The specimen shows fragments of gastric mucosa with chronic inflammatory cell infiltrates in the lamina propria consisting of lymphocytes and plasma cells, consistent with mild chronic gastritis and focal mucosal congestion is also noted. GROSS DESCRIPTION A. Received in fixative is one container labeled with the patient's name and designated Duodenum biopsy. The specimen consists of two irregular fragments of light wong soft tissue that measuring in aggregate 0.5 x 0.3 x 0.1 cm. The specimen is totally submitted in one cassette. B. Received in fixative is one container labeled with the patient's name and designated Gastric antrum. The specimen consists of two irregular fragments of light wong soft tissue that in aggregate measure 0.4 x 0.3 x 0.1 cm. The specimen is totally submitted in one cassette. C. Received in fixative is one container labeled with the patient's name and designated Distal esophagus biopsy. The specimen consists of two irregular fragments of light wong soft tissue that in aggregate measure 0.6 x 0.3 x 0.1 cm. The specimen is totally submitted in one cassette. D. Received in fixative is one container labeled with the patient's name and designated Proximal esophagus. The specimen consists of one irregular fragment of light wong soft tissue that measures 0.4 x 0.3 x 0.1 cm. The specimen is totally submitted in one cassette. E. Received in fixative is one container labeled with the patient's name and designated Terminal ileum biopsy. The specimen consists of multiple irregular fragments of light wong soft tissue that in aggregate measure 1.0 x 0.3 x 0.1 cm. The specimen is totally submitted in one cassette. SJ/ 12/11/2023 TC:3 CPT:85405g7 ,69097c2
--- NOTE | 2023-12-11 08:00 | IMM_PTH ---
PATIENT: MARIAN HAMILTON LOC: EN U#:[id number] AGE/SX: 38/M ROOM: RE12/11/[address]: Dr. Eagle Aguayo DO : 1985 BED: DIS: 12/11/2023 SPEC #: [id number] RECD: 12/11/23 13:41 STATUS: DRU REQ #: [id number] VIET: 12/11/23 08:[address]: Eagle Aguayo DEPT: IMMUNOHISTOCHEMISTRY RECD BY: Leif Lockett ENTERED: 12/11/23 13:41 SP TYPE: IMMUNO OTHR DR: Dr. Saroj Michel DO Tissues: B - Gastric mucous membrane Procedures: H Pylori (initial) PHYSICIAN & INSTITUTION [place] [id number] SPECIMEN INFORMATION: Tissue Source: B- Gastric antrum biopsy Clinical Info: GI bleed Specimen Number: [id number] CPT code: 42899 METHODOLOGY: Deparaffinized sections of prefer/formalin-fixed tissue or PAP/DQ stained slides are incubated with monoclonal/polyclonal antibodies/oligonucleotide probes. Localization is made via biotin free immunoperoxidase method. Appropriate controls are performed and reacted as expected. Results on target cell population are indicated in the following table: RESULTS: ANTIBODY / CLONE RESULT Block B H Pylori (polyclonal) Negative for Helicobacter pylori organisms. These tests were developed and their performance characteristics determined by [facility]. They may not have been cleared or approved by the [place].S. Food and Drug Administration. The FDA has determined that such clearance or approval is not necessary. The above immunohistochemical/dualISH markers are ordered and reviewed by the Pathologist. INTERPRETATION: B. Gastric antrum, biopsy: Negative for Helicobacter pylori organisms. MIKE/ 12/12/2023
--- NOTE | 2023-12-11 09:06 | OP.EGD_ITS ---
Patient Name: Jeff Barber Procedure Date: 12/11/2023 8:32 AM Date of : 1985 Age: 38 Procedure: Upper GI endoscopy Indications: Iron deficiency anemia, Heartburn Providers: Eagle Aguayo DO Medicines: Monitored Anesthesia Care Patient Profile: This is a 38 year old male. Refer to note in patient chart for documentation of history and physical. Patient has symptoms of chronic heartburn. Complications: No immediate complications. Procedure: Pre-Anesthesia Assessment: - Prior to the procedure, a History and Physical was performed, and patient medications and allergies were reviewed. The patient is competent. The risks and benefits of the procedure and the sedation options and risks were discussed with the patient. All questions were answered and informed consent was obtained. Patient identification and proposed procedure were verified by the physician. Mental Status Examination: normal. Prophylactic Antibiotics: The patient does not require prophylactic antibiotics. Prior Anticoagulants: The patient has taken no anticoagulant or antiplatelet agents. ASA Grade Assessment: II - A patient with mild systemic disease. After reviewing the risks and benefits, the patient was deemed in satisfactory condition to undergo the procedure. The anesthesia plan was to use monitored anesthesia care (MAC). Immediately prior to administration of medications, the patient was re-assessed for adequacy to receive sedatives. The heart rate, respiratory rate, oxygen saturations, blood pressure, adequacy of pulmonary ventilation, and response to care were monitored throughout the procedure. The physical status of the patient was re-assessed after the procedure. After obtaining informed consent, the endoscope was passed under direct vision. Throughout the procedure, the patient's blood pressure, pulse, and oxygen saturations were monitored continuously. The Colonoscope was introduced through the mouth, and advanced to the second part of duodenum. The Endoscope was introduced through the mouth, and advanced to the second part of duodenum. The upper GI endoscopy was accomplished without difficulty. The patient tolerated the procedure well. Scope In: 8:39:13 AM Scope Out: 8:44:01 AM Total Procedure Duration Time 0 hours 4 minutes 48 seconds Findings: Localized moderate mucosal variance characterized by an abnormal appearance suspicious for Carrington's was found in the upper third of the esophagus. Biopsies were taken with a cold forceps for histology. Verification of patient identification for the specimen was done. Estimated blood loss was minimal. There were esophageal mucosal changes suspicious for short-segment Carrington's esophagus present in the lower third of the esophagus. Mucosa was biopsied with a cold forceps for histology in a targeted manner at intervals of 1 cm in the lower third of the esophagus. One specimen bottle was sent to pathology. Verification of patient identification for the specimen was done. Estimated blood loss was minimal. A small hiatal hernia was present. Patchy mildly erythematous mucosa without active bleeding and with no stigmata of bleeding was found in the duodenal bulb. Biopsies were taken with a cold forceps for histology. Verification of patient identification for the specimen was done. Impression: - Esophageal mucosal variant. Biopsied. 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 Biopsied. - Small hiatal hernia. - Erythematous duodenopathy. Biopsied. Recommendation: - Discharge patient to home. - Resume previous diet. - Continue present medications. - Await pathology results. Procedure Code(s): --- Professional --- 18700, Esophagogastroduodenoscopy, flexible, transoral; with biopsy, single or multiple CPT copyright 2021 [employer]. All rights reserved. The codes documented in this report are preliminary and upon hotel reservation agent review may be revised to meet current compliance requirements. Eagle Aguayo DO 12/11/2023 9:05:53 AM This report has been signed electronically. Number of Addenda: 0 Note Initiated On: 12/11/2023 8:32 AM
--- NOTE | 2023-12-11 09:07 | PCM.POST.ANE ---
Anesthesia: Postop Eval I Current Vital Signs Temperature: 97 F Pulse Rate: 77 Blood Pressure: 110/64 Respiratory Rate: 16 Pulse Ox: 99 Oxygen Delivery Method: Room Air Assessment Airway patent: Yes Spontaneous unlabored respirations: Yes Mental status: Awake and Calm nausea: No Vomiting: No Anesthesia Complication: No Fluid Hydration Crystalloid volume administer (ml): 600 Total IV fluid infused: 600 Progress Note Anesthesia document: Postop Eval 1 completed: Yes
--- NOTE | 2023-12-11 09:09 | OP.COLON_ITS ---
Patient Name: Jeff Barber Procedure Date: 12/11/2023 8:44 AM Date of : 1985 Age: 38 Procedure: Colonoscopy Indications: Heme positive stool, Iron deficiency anemia Providers: Eagle Aguayo DO Medicines: Monitored Anesthesia Care Patient Profile: This is a 38 year old male. Refer to note in patient chart for documentation of history and physical. Patient has symptoms of chronic heartburn. Last Colonoscopy: none. The patient's first colonoscopy is today. Complications: No immediate complications. Procedure: Pre-Anesthesia Assessment: - Prior to the procedure, a History and Physical was performed, and patient medications and allergies were reviewed. The patient is competent. The risks and benefits of the procedure and the sedation options and risks were discussed with the patient. All questions were answered and informed consent was obtained. Patient identification and proposed procedure were verified by the physician. Mental Status Examination: normal. Prophylactic Antibiotics: The patient does not require prophylactic antibiotics. Prior Anticoagulants: The patient has taken no anticoagulant or antiplatelet agents. ASA Grade Assessment: II - A patient with mild systemic disease. After reviewing the risks and benefits, the patient was deemed in satisfactory condition to undergo the procedure. The anesthesia plan was to use monitored anesthesia care (MAC). Immediately prior to administration of medications, the patient was re-assessed for adequacy to receive sedatives. The heart rate, respiratory rate, oxygen saturations, blood pressure, adequacy of pulmonary ventilation, and response to care were monitored throughout the procedure. The physical status of the patient was re-assessed after the procedure. After I obtained informed consent, the scope was passed under direct vision. Throughout the procedure, the patient's blood pressure, pulse, and oxygen saturations were monitored continuously. The colonoscope was introduced through the anus and advanced to the terminal ileum. The colonoscopy was performed without difficulty. The patient tolerated the procedure well. The quality of the bowel preparation was adequate. The terminal ileum, ileocecal valve, appendiceal orifice, and rectum were photographed. Scope In: 8:46:33 AM Scope Withdrawal Time 0 hours 9 minutes 28 seconds Scope Out: 8:57:27 AM Total Procedure Duration Time 0 hours 10 minutes 54 seconds Findings: The perianal and digital rectal examinations were normal. Multiple small and large-mouthed diverticula were found in the recto-sigmoid colon, sigmoid colon, descending colon and splenic flexure. A localized area of the terminal ileum was congested. Biopsies were taken with a cold forceps for histology. Verification of patient identification for the specimen was done. Estimated blood loss was minimal. Impression: - Diverticulosis in the recto-sigmoid colon, in the sigmoid colon, in the descending colon and at the splenic flexure. - Congested mucosa in the terminal ileum. Biopsied. Recommendation: - Discharge patient to home. - Resume previous diet. - Continue present medications. - Await pathology results. - Repeat colonoscopy is recommended. The colonoscopy date will be determined after pathology results from today's exam become available for review. Procedure Code(s): --- Professional --- 24203, Colonoscopy, flexible; with biopsy, single or multiple CPT copyright 2021 [employer]. All rights reserved. The codes documented in this report are preliminary and upon outside deliverer review may be revised to meet current compliance requirements. Eagle Aguayo DO 12/11/2023 9:08:50 AM This report has been signed electronically. Number of Addenda: 0 Note Initiated On: 12/11/2023 8:44 AM
--- NOTE | 2023-12-11 09:09 | OP.CCLET_ITS ---
12/11/2023 Saroj Michel [address] [place] [address] Re : Colonoscopy procedure for Jeff Sunil Dear Dr. Michel This procedure was performed on Monday, December 11, 2023. My impressions and recommendations are as follows: Impressions : - Diverticulosis in the recto-sigmoid colon, in the sigmoid colon, in the descending colon and at the splenic flexure. - Congested mucosa in the terminal ileum. Biopsied. Recommendations : - Discharge patient to home. - Resume previous diet. - Continue present medications. - Await pathology results. - Repeat colonoscopy is recommended. The colonoscopy date will be determined after pathology results from today's exam become available for review. My findings are described in the full procedure note, which is enclosed. If I can be of further assistance, please feel free to contact me at . Sincerely, Eagle Aguayo, 12/11/2023 9:08:50 AM This report has been signed electronically.
--- NOTE | 2023-12-11 17:52 | PCM.POSTANE2 ---
Anesthesia Postop Eval I Sum Postop Eval Completion status Anesthesia document: Postop Eval 1 completed: Yes Anesthesia Postop Eval I Summary Anesthesia Postop Eval I Summary: Anesthesia Postop Eval I: Assessment Summary Airway patent Yes 12/11/23 09:08 [email or web address] Spontaneous unlabored Yes 12/11/23 09:08 [email or web address] respirations Mental status Awake,Calm 12/11/23 09:08 [email or web address] nausea No 12/11/23 09:08 [email or web address] Vomiting No 12/11/23 09:08 [email or web address] Anesthesia Postop Eval I: Fluid Summary Crystalloid volume administer 600 12/11/23 09:08 [email or web address] (ml) Colloids volume administered ( ml) Blood Product volume administered (ml) Total IV fluid infused 600 12/11/23 09:08 [email or web address] Anesthesia Postop Eval I: Summary Notes Anesthesia Complication No 12/11/23 09:08 [email or web address] Anesthesia Complication Comment: Post-operative progress note Anesthesia: Postop Eval II Evaluation Mental status: Awake and Calm Pain Level: 0 nausea: No Vomiting: No Complications Anesthesia Complication: No
== END 2023-12-11 09:35 | disposition home or self-care (01) ==
LOC: EN 06:46 → AC 06:47
PROVIDERS: PCP Student in an Organized Health Care Education/Training Program; Referring Provider Student in an Organized Health Care Education/Training Program; Visit Provider Internal Medicine Gastroenterology
PROC: 0DJD8ZZ Inspection of Lower Intestinal Tract, Via Natural or Artificial Opening Endoscopic (ICD-10-PCS; CPT 45378; principal; 2023-12-11 07:55)
DX: K92.2 Gastrointestinal hemorrhage, unspecified (principal); K44.9 Diaphragmatic hernia without obstruction or gangrene; K57.30 Diverticulosis of large intestine without perforation or abscess without bleeding; K63.89 Other specified diseases of intestine; K31.89 Other diseases of stomach and duodenum
CPT/HCPCS: 43239; 45380; 88305; 88312; 88342; J7120; J2405

== ENCOUNTER → 2023-12-31 | Outpatient (CLI) | payer OTHER, SELFPAY ==
--- NOTE | 2023-12-31 09:55 | ECHOD_ITS ---
Reason For Study: Palpitations Procedure This was a 2D Doppler, Color Flow transthoracic echocardiogram. Exam performed in department. Left Ventricle Normal LV size. The estimated ejection fraction is 65 %. No evidence for diastolic dysfunction. No regional wall motion abnormalities noted. Right Ventricle Normal RV size. Normal systolic function. Atria The left and right atria are normal. No doppler evidence for ASD. Mitral Valve There is no mitral valve stenosis. Trivial mitral valve insufficiency. Tricuspid Valve There is no tricuspid stenosis. Trivial tricuspid valve insufficiency. Pulmonary artery systolic pressure is 25 mmHg. Aortic Valve Trisinus/trileaflet aortic valve. There is no aortic stenosis. No aortic valve insufficiency. Pulmonic Valve There is no pulmonic valvular stenosis. No pulmonic valve insufficiency. Great Vessels Normal aortic root. Pericardium/Pleural No pericardial effusion. MMode/2D Measurements & Calculations LVIDd: 4.8 cm IVSd: 1.1 cm Ao root diam: 2.9 cm LVIDs: 3.1 cm LVPWd: 1.0 cm RVDd: 3.5 cm FS: 35.6 % LAV(MOD-bp): 44.0 ml LVAd ap4: 26.7 cm2 SV(MOD-sp4): 44.0 ml LAV(MOD-bp) Indexed: 22.5 ml/m2 LVLd ap4: 7.6 cm LAV(MOD-sp2): 36.2 ml EDV(MOD-sp4): 77.8 ml LAV(MOD-sp4): 42.8 ml EDV(sp4-el): 80.2 ml LVAs ap4: 15.6 cm2 LVLs ap4: 6.7 cm ESV(MOD-sp4): 33.8 ml ESV(sp4-el): 31.0 ml EF(MOD-sp4): 56.6 % EF(sp4-el): 61.3 % SV(sp4-el): 49.1 ml LA A4 area: 17.2 cm2 LA dimension(2D): 3.6 cm RA A4 area: 9.5 cm2 TAPSE: 2.0 cm Time Measurements MV dec time: 0.20 sec Doppler Measurements & Calculations MV E max jc: 81.4 cm/sec Lat Peak E' Jc: 12.8 cm/sec Med Peak E' Jc: 7.0 cm/sec MV A max jc: 60.0 cm/sec E/E' lat: 6.4 E/E' med: 11.6 MV E/A: 1.4 Ao V2 max: 129.5 cm/sec LV V1 max: 107.8 cm/sec MV dec slope: 404.7 cm/sec2 Ao max P.7 mmHg LV V1 max P.7 mmHg Ao V2 mean: 102.9 cm/sec LV V1 mean P.5 mmHg Ao mean P.4 mmHg LV V1 mean: 73.9 cm/sec Ao V2 VTI: 25.8 cm LV V1 VTI: 20.7 cm AV (velocity ratio): 0.80 PA V2 max: 129.6 cm/sec PI end-d jc: 112.1 cm/sec TR max jc: 211.9 cm/sec TR max P.0 mmHg ECHO/Echo Complete Interpretation Summary The estimated ejection fraction is 65 %. No evidence for diastolic dysfunction. Trivial mitral valve insufficiency. Ordering Physician: Saroj Michel Referring Physician: Saroj Michel Performed By: Hafsa Reeder, JADEN, RVT
== END | disposition home or self-care (01) ==
PROVIDERS: PCP Student in an Organized Health Care Education/Training Program; Referring Provider Student in an Organized Health Care Education/Training Program; Visit Provider Student in an Organized Health Care Education/Training Program
DX: R00.2 Palpitations (principal)
CPT/HCPCS: 93306

== ENCOUNTER → 2024-03-23 | Outpatient (CLI) | payer OTHER, SELFPAY ==
[2024-03-23 15:01] LABS: Absolute Lymphocyte Count 2.21 X10^3/uL (0.83-4.51); Absolute Neutrophil Count 4.7 X10^3/uL (2.0-7.7); Basophil# 0.08 X10^3/uL; Eosinophils% 1.3 % (0-5); Hematocrit 46.2 % (40-54); Hemoglobin 15.3 g/dL (13.0-16.5); Lymphocyte # 2.21 X10^3/ul (0.83-4.51); Lymphocyte % 28.7 % (19-41); Mean Corp Hgb Conc 33.1 g/dL (32-36); Mean Corpuscular Hgb 28.3 pg (27.0-32.0); Mean Corpuscular Volume 85.6 fL (80-94); Mean Platelet Vol. 9.9 fl (6.2-12.0); Monocyte# 0.59 X10^3/uL; Monocyte% 7.7 % (0-10); NRBC Flagged by Analyzer 0 % (0-5); Neutrophil # 4.69 X10^3/uL (2.7-7.7); Platelet Count 319 K/mm3 (150-450); RBC Distribution Width CV 13.3 % (11.6-14.6); RBC Distribution Width SD 41.2 fl (35.1-43.9); White Blood Count 7.7 K/mm3 (4.4-11.0)
[2024-03-23 15:18] LABS: CRP < 2.90 mg/L (0.0-3.0)
[2024-03-23 15:19] LABS: Erythrocyte Sedimentation Rate 4 mm/hr (0-20)
[2024-03-23 15:30] LABS: Lactic Acid 1.1 mmol/L (0.4-1.9)
--- NOTE | 2024-03-23 16:16 | CT_ITS ---
INDICATION: Intermittent rectal pain for several weeks EXAMINATION: CT ABDOMEN AND PELVIS WITH CONTRAST - CT Abdomen And Pelvis W/ Contrast Injection TECHNIQUE: Helically acquired images were obtained of the abdomen and pelvis following IV contrast. A radiation dose optimization technique was used for this scan. IV Contrast dosage and agent: 100 cc [id number] Oral contrast: Yes. COMPARISON: 04/25/2022 FINDINGS: LOWER CHEST: Bibasilar dependent changes. No cardiomegaly or pericardial effusion. LIVER: No concerning focal mass. GALLBLADDER AND BILIARY TREE: No calcified gallstones. No gallbladder distension or wall edema. No intra- or extrahepatic biliary ductal dilation. PANCREAS: No focal cystic or solid mass. SPLEEN: Normal size without focal cystic or solid mass. ADRENAL GLANDS: No nodules. KIDNEYS AND URETERS: Nonobstructing right renal calculi. No hydronephrosis. PERITONEUM: No ascites or free air. BOWEL: Normal appendix. No stomach or bowel distension. Colonic diverticulosis without focal inflammatory bowel wall changes. No perirectal inflammation or abscess formation. LYMPH NODES: No enlarged mesenteric or retroperitoneal lymph nodes. VESSELS: Aorta is non-dilated. URINARY BLADDER: Unremarkable. REPRODUCTIVE ORGANS: No pelvic masses. ABDOMINAL WALL: Fat-containing umbilical and right inguinal hernia. BONES: No acute bony abnormality. CT/Abdomen/Pelvis WITH Contrast IMPRESSION: No acute findings in the abdomen or pelvis. No demonstrated perirectal abnormality. Electronically Signed: Stephen Will MD at 19:14 EDT ,
--- OUTSIDE RECORDS SUMMARY | 2024-03-23 19:59 | XMS RPT_ITS | CCD ---
Author Organization [facility] Care Team Providers Care Graining Operator Name Role Phone [facility] Unavailable Unavaila ble [facility]ELICIANO, [facility] Unavailable Unavaila ble FELICIANO, [facility] Unavailable Unavaila ble RaymondSaroj hill DO Primary Care Provider Saroj Raymond DO Primary Care Provider Saroj Raymond DO Primary Care Provider Saroj Raymond DO Primary Care Provider SAROJ RAYMOND Primary Care Unavailable SAROJ RAYMOND Attending Unavailable SAROJ RAYMOND Attending Unavailable SAROJ RAYMOND Primary Care Unavailable SAROJ RAYMOND Primary Care Unavailable SAROJ RAYMOND Primary Care Unavailable SAROJ RAYMOND Attending Unavailable SAROJ RAYMOND Primary Care Unavailable SAROJ RAYMOND Referring Unavailable Allergies Allergy Classification Reported Allergen(s) Allergy Type Date of Onset Reaction(s) Facility Penicillins (antibiotic) (1 source) Amoxicillin Drug Allergy 5 [facility] Work Phone: Sulfamethoxazole / Trimethoprim (1 source) Sulfamethoxazole / Trimethoprim Drug Allergy 5 [facility] (20 sources) Amoxicillin; Translations: [AMOXICILLIN] Drug Allergy 5 [facility] Work Phone: (20 sources) Sulfamethoxazole / Trimethoprim; Translations: [SULFAMETHOXAZOLE-TR IMETHOPRIM] Drug Allergy 5 [facility] Work Phone: Medications Current Medications Medication Drug Class(es) Dates Sig (Normalized) Sig (Original) oseltamivir 75 mg oral capsule (2 sources) Neuraminidase Inhibitor Start: 07-16-2023 End: 07-21-2023 take 1 capsule by mouth twice daily oseltamivir (TAMIFLU) 75 mg capsule Take 1 capsule by mouth two times a day for 5 days. 10 capsule 0 07/16/2023 07/21/2023 Active Comment on above: Take 1 capsule by [facility] two times a day for 5 days. predniSONE 20 mg oral tablet (2 sources) Start: 07-25-2022 End: 2022 take 2 tablets by mouth once daily at mealtime for pain predniSONE (DELTASONE) 20 mg tablet Indications: Radiculopathy of lumbar region , Chronic midline low back pain with bilateral sciatica Take 2 tablets by mouth once daily for 4 days. For severe low back pain flare up, Take daily with food. 8 tablet 1 07/25/2022 2022 Active Start: 07-15-2022 End: 07-24-2022 predniSONE (DELTASONE) 10 mg tablet Indications: Acute midline low back pain without sciatica Take 4 tabs daily for 3 days, then 2 tabs daily for 3 days, then 1 tab daily for 3 days with food. 21 tablet 0 07/15/2022 07/24/2022 Active Comment on above: Take 4 tabs daily fo r 3 days, then 2 tabs daily for 3 days, then 1 tab daily for 3 days with food. Take 2 tablets by [facility] once daily for 4 days. For severe low back pain flare up, Take daily with food. RABEprazole sodium 20 mg delayed release oral tablet (20 sources) Proton Pump Inhibitor Start: 05-07-20 End: 11-19-19 take 1 tablet by mouth once daily RABEprazole (ACIPHEX) 20 mg tablet Indications: Gastroesophageal reflux disease without esophagitis Take 1 tablet by mouth once daily. 90 tablet 1 11/19/2023 Active Comment on above: Take 20 mg by mouth once daily. Take 1 tablet by [facility] once daily. SUMAtriptan 100 mg oral tablet (20 sources) Serotonin-1b and Serotonin-1d Receptor Agonist Start: 02-11-20 21 End: 11-19-19 24 take 1 tablet by mouth every hour as needed, then take 2 tablets by mouth every twenty-four hours as needed SUMAtriptan (IMITREX) 100 mg tablet Indications: Headaches due to old head injury Take 1 tablet (100 mg) by mouth as needed. take at onset of migraine, May repeat in 1 hour if needed. limit 2 doses in 24 hours. 12 tablet 5 11/19/2023 Active Comment on above: Take 1 tablet by main th as needed. take at onset of migraine, May repeat in 1 hour if needed. limit 2 doses in 24 hours. tiZANidine 4 mg oral tablet (20 sources) Central alpha-2 Adrenergic Agonist Start: 07-26-19 23 take 1 tablet by mouth every eight hours as needed for muscle spasms tiZANidine (ZANAFLEX) 4 mg tablet Indications: Radiculopathy of lumbar region , Chronic midline low back pain with bilateral sciatica Take 1 tablet by mouth every 8 hours as needed (muscle spasm low back). 30 tablet 1 07/25/2022 Active Comment on above: Take 1 tablet by main th every 8 hours as needed (muscle spasm low back). Completed/Discontinued Medications Medication Drug Class(es) Dates Sig (Normalized) Sig (Original) amphetamine aspartate 5 mg / amphetamine sulfate 5 mg / dextroamphetamine saccharate 5 mg / dextroamphetamine sulfate 5 mg oral tablet (11 sources) Central Nervous System Stimulant Start: 4 End: 4 take 1 tablet by mouth once daily as needed dextroamphetamine-am phetamine (ADDERALL) 20 mg tablet Indications: Attention deficit disorder (ADD) in adult Take 1 tablet by mouth once daily for 30 days. In the afternoon as needed for focus/concentration 30 tablet 02/18/2024 03/11/2024 Discontinued cyclobenzaprine hydrochloride 10 mg oral tablet (2 sources) Muscle Relaxant Start: 3 End: 3 take 1 tablet by mouth twice daily as needed for muscle spasms cyclobenzaprine (FLEXERIL) 10 mg tablet Indications: Acute midline low back pain without sciatica Take 1 tablet by mouth twice daily as needed for muscle spasm for up to 10 days. 20 tablet 0 07/15/2022 07/25/2022 Discontinued Comment on above: Take 1 tablet by main th twice daily as needed for muscle spasm for up to 10 days. hydrOXYzine hydrochloride 25 mg oral tablet (6 sources) Antihistamine Start: 0 End: 3 take 1 tablet by mouth every six hours as needed hydrOXYzine HCl (ATARAX) 25 mg tablet Indications: Rash and nonspecific skin eruption Take 1 tablet by mouth every 6 hours as needed for Itching/Rash. 20 tablet 1 02/10/2020 07/25/2022 Discontinued Comment on above: Take 1 tablet by main th every 6 hours as needed for Itching/Rash. lidocaine 0.05 mg/mg medicated patch (2 sources) Antiarrhythmic, Amide Local Anesthetic Start: 3 End: 3 apply 1 dose transdermal route once daily, then apply 1 dose transdermal route every twelve hours lidocaine (LIDODERM) 5 % Indications: Acute midline low back pain without sciatica Apply 1 Patch as directed once daily for 14 days. Remove old patch prior to placing new patch. Location: 12 hours on and 12 hours off 14 Patch 0 07/15/2022 07/25/2022 Discontinued Comment on above: Apply 1 Patch as dir ected once daily for 14 days. Remove old patch prior to placing new patch. Location: 12 hours on and 12 hours off lisdexamfetamine dimesylate 70 mg oral capsule (20 sources) Central Nervous System Stimulant Start: 3 End: 4 take 1 capsule by mouth once daily lisdexamfetamine (VYVANSE) 70 mg capsule Indications: Attention deficit disorder (ADD) in adult Take 1 capsule by mouth once daily for 30 days. 30 capsule 11/19/2023 03/11/2024 Discontinued Start: 03-05-2023 End: 04-04-2023 take 1 capsule by mouth once daily lisdexamfetamine (VYVANSE) 70 mg capsule Indications: Attention deficit disorder (ADD) in adult Take 1 capsule by mouth once daily for 30 days. 30 capsule 0 03/05/2023 04/04/2023 Active Start: 01-23-2023 End: 03-08-2023 take 1 capsule by mouth once daily lisdexamfetamine (VYVANSE) 60 mg capsule Indications: Attention deficit disorder (ADD) in adult Take 1 capsule by mouth once daily for 30 days. 30 capsule 0 02/06/2023 03/05/2023 Discontinued Start: 06-19-2021 End: 01-25-2023 take 1 capsule by mouth once daily lisdexamfetamine (VYVANSE) 50 mg capsule Indications: Attention deficit disorder (ADD) in adult Take 1 capsule by mouth once daily for 30 days. 30 capsule 0 12/26/2022 01/23/2023 Discontinued Comment on above: Take 1 capsule by mo [facility] once daily for 30 days. Take 1 capsule by mo ut[facility] once daily for 30 days. Do not start before July 18, 2021. Take 1 capsule by mo [facility] once daily for 30 days. Do not start before April 02, 2022. Take 1 capsule by mo ut[facility] once daily for 30 days. Do not start before March 02, 2022. Take 1 capsule by mo [facility] once daily for 30 days. Do not start before September 24, 2022. Take 1 capsule by mo [facility] once daily for 30 days. Do not start before August 25, 2022. Take 1 capsule by mo ut[facility] once daily for 30 days. Do not start before July 28, 2022. Take 1 capsule by mo [facility] once daily for 30 days. Do not start before July 31, 2023. Take 1 capsule by mo ut[facility] once daily for 30 days. Do not start before July 04, 2023. Problems Active Problems Problem Classification Problem Date Documented Date Episodic/Chronic Cardiac dysrhythmias (1 source) Palpitations; Translations: [Palpitations] 11-19-2023 Episodic Disorders of lipid metabolism (20 sources) Dyslipidemia; Translations: [Hyperlipidemia, unspecified] Onset: 07-25-2022 Chronic Disorders usually diagnosed in infancy, childhood, or adolescence (20 sources) Adult attention deficit hyperactivity disorder ; Translations: [Other specified behavioral and emotional disorders with onset usually occurring in childhood and adolescence] Onset: 06-19-2021 Chronic Esophageal disorders (20 sources) Gastroesophageal reflux disease without esophagitis; Translations: [Gastro-esophageal reflux disease without esophagitis] Onset: 09-06-2015 09-06-2015 Chronic Influenza (1 source) Influenza due to Influenza A virus; Translations: [Influenza due to other identified influenza virus with other respiratory manifestations] 07-16-2023 Episodic Other upper respiratory infections (1 source) Acute upper respiratory infection; Translations: [Acute upper respiratory infection, unspecified] 07-16-2023 Episodic Substance-related disorders (20 sources) Tobacco user; Translations: [Nicotine dependence, unspecified, uncomplicated] Onset: 09-06-2015 09-06-2015 Chronic Past or Other Problems Problem Classification Problem Date Documented Da te Episodic/Chronic Calculus of urinary tract (20 sources) Ureteric stone; Translations: [Calculus of ureter] Onset: 07-25-2022 Episodic Headache; including migraine (20 sources) Headache; Translations: [Post-traumatic headache, unspecified, not intractable] Onset: 07-25-2022 Episodic Other screening for suspected conditions (not mental disorders or infectious disease) (20 sources) Patient encounter status; Translations: [Encounter for screening for other disorder] Onset: 10-28-2014 10-28-2014 Episodic Spondylosis; intervertebral disc disorders; other back problems (20 sources) Acute low back pain; Translations: [Acute midline low back pain without sciatica] Onset: 07-25-2022 Episodic Results Test Name Value Interpretation Reference Range Facil ity Bertha 11-25-2023 [facility] -------- MARIAN HAMILTON ([id number]) 1985 Date Time Provider Department 11/25/23 SAROJ RAYMOND [facility] During your visit today, we recorded the following information about you: Lor Laureano LPN 11/25/2023 8:42 AM Signed [facility] Scheduling office calling requesting copy of ECHO order to be faxed to [phone]. Printed and faxed as requested. Allergies As of Date: 11/25/2023 Noted Allergy Reaction AMOXICILLIN 01/30/2005 4 - Hives SEPTRA DS (SULFAMETHOXAZOLE-TRIME* 01/30/2005 4 - Hives Date Reviewed: 11/19/2023 Reviewed by: Loni Limon LPN - Fully Assessed Reason for Visit: [facility] requesting fax order [Other] Prescriptions as of 11/25/2023 - lisdexamfetamine (VYVANSE) 70 mg capsule Take 1 capsule by mouth once daily for 30 days. - lisdexamfetamine (VYVANSE) 70 mg capsule Take 1 capsule by mouth once daily for 30 days. Do not start before December 17, 2023. - lisdexamfetamine (VYVANSE) 70 mg capsule Take 1 capsule by mouth once daily for 30 days. Do not start before January 15, 2024. - RABEprazole (ACIPHEX) 20 mg tablet Take 1 tablet by mouth once daily. - SUMAtriptan (IMITREX) 100 mg tablet Take 1 tablet (100 mg) by mouth as needed. take at onset of migraine, May repeat in 1 hour if needed. limit 2 doses in 24 hours. - dextroamphetamine-amphet amine (ADDERALL) 20 mg tablet Take 1 tablet by mouth once daily for 30 days. In the afternoon as needed for focus/concentration - tiZANidine (ZANAFLEX) 4 mg tablet Take 1 tablet by mouth every 8 hours as needed (muscle spasm low back). Problem List As Of Date 11/25/2023 Noted Resolved Screening for other and unspecified genitourina*10/28/2014 Gastroesophageal reflux disease without esophag*09/06/2015 Tobacco use disorder [F17.200] 09/06/2015 Gastroesophageal reflux disease with esophagiti*06/19/2021 Attention deficit disorder (ADD) in adult [F98.*06/19/2021 Dyslipidemia [E78.5] 07/25/2022 Ureterolithiasis [N20.1] 07/25/2022 Radiculopathy of lumbar region [M54.16] 07/25/2022 Headaches due to old head injury [G44.309, S09.*07/25/2022 Chronic midline low back pain with bilateral sc*07/25/2022 Well adult exam [Z00.00] 01/23/2023 Encounter Status:Closed by LOR LAUREANO on 11/25/23 [facility] 11-19-2023 CNOV Office Visit (FAMPWS ) -------- MARIAN HAMILTON ([id number]) 1985 M Date Time Provider Department 11/19/23 10:40 AM SAROJ RAYMONDPELAINE During your visit today, we recorded the following information about you: Temperature Pulse Respiration Blood pressure 97.4 degrees 80/minute 12/minute 124/80 Weight Height 89.8 kg 1.68 m Saroj Raymond, 11/19/2023 12:22 PM Signed CC: Marian Hamilton is a 38 year old male who presents to the office for follow up HPI: Colonoscopy upcoming mid November with Dr. Friend Sales Marketing Director due to having some blood in his stools. His GERD has been well controlled with Aciphex without any new changes, no nausea or vomiting. Was in the EMERGENCY DEPARTMENT about 1 month ago for palpitations and chest pain at [facility]. Work up for cardiac symptoms was negative. Labs were all normal. EKG was stable. Thought maybe symptoms were related to [employer] energy drinks which he cut out from his diet. He does still have some occasional symptoms, not daily. Tries to limit caffeine intake in general as well. No syncope symptoms. Does have a fmhx of thyroid disease in mother. He is also wondering if it could be anxiety symptoms as well ADD, long standing, taking Vyvanse as prescribed. Sometimes feels that he is unsure if this medication is even effective/helpful enough. Definitely seems to wear off early as well. 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 [START ON 12/17/2023] lisdexamfetamine (VYVANSE) 70 mg capsule Take 1 capsule by mouth once daily for 30 days. Do not start before December 17, 2023. [START ON 01/15/2024] lisdexamfetamine (VYVANSE) 70 mg capsule Take 1 capsule by mouth once daily for 30 days. Do not start before January 15, 2024. RABEprazole (ACIPHEX) 20 mg tablet Take 1 tablet by mouth once daily. SUMAtriptan (IMITREX) 100 mg tablet Take 1 tablet (100 mg) by mouth as needed. take at onset of migraine, May repeat in 1 hour if needed. limit 2 doses in 24 hours. dextroamphetamine-amphet amine (ADDERALL) 20 mg tablet Take 1 tablet by mouth once daily for 30 days. In the afternoon as needed for focus/concentration tiZANidine (ZANAFLEX) 4 mg tablet Take 1 tablet by mouth every 8 hours as needed (muscle spasm low back). No current facility-administered medications for this visit. ALLERGIES Allergen Reactions Amoxicillin Hives Septra Ds [Sulfamet* Hives Social History Tobacco Use Smoking status: Never Smokeless tobacco: Current Types: Chew Tobacco comments: chews tobacco Substance Use Topics Alcohol use: Yes Comment: rare ROS: See HPI PE: BP 124/80 Pulse 80 Temp (Src) 97.4 (Left Tympanic) Resp 12 Ht 5' 6.142 (1.68m) Wt 198 lb (89.8kg) BMI 31.82 kg/(m2). Gen: AANDOX3, NAD, non-toxic appearing HEENT: PERRLA, EOMs intact b/l, nares without drainage, pharynx without erythema, exudate, lesions, or drainage. Uvula midline. Neck: No LAD, no thyromegaly, no meningismus. CV: RRR, no murmur Lungs: CTA b/l, no wheezing Skin: No rashes, lesions, or wounds on exposed skin. No edema, normal pulses Abd: soft, NT, overweight PDMP website checked and validated. All prescriptions have been APPROPRIATELY filled. No suspicious activity was identified. 11/19/2023 by Saroj Raymond DO ASSESSMENT/PLAN: 1. Palpitations - ICD9: 785.1, ICD10: R00.2 (primary diagnosis) Labs as ordered ECHO as ordered Consider awake overnight monitor May be related to anxiety as well- consider adding on prn medication for anxiolytic as well as daily SSRI if symptoms worsen as d/w him today in office - THYROID STIMULATING HORMONE - T4 FREE/FREE THYROXINE - T3, FREE - ECHO - PERFLUTREN LIPID MICROSPHERES 1.1 MG/ML INJECTION IN NS 10 ML - SODIUM CHLORIDE 0.9 % (FLUSH) INJECTION SYRINGE 2. Attention deficit disorder (ADD) in adult - ICD9: 314.00, ICD10: F98.8 Continue vyvnase in AM, add on short acting adderall in afternoon. If symptoms still don't feel controlled then recommend changing AM medication to an alternative - LISDEXAMFETAMINE 70 MG CAPSULE - LISDEXAMFETAMINE 70 MG CAPSULE - LISDEXAMFETAMINE 70 MG CAPSULE - DEXTROAMPHETAMINE-AMPHET AMINE 20 MG TABLET 3. Gastroesophageal reflux disease without esophagitis - ICD9: 530.81, ICD10: K21.9 - Discussed lifestyle modifications including (more content not included)... Normal [facility] 11-19-2023 CNPN Telephone (FAMPWS) -------- MARIAN HAMILTON ([id number]) 1985 M Date Time Provider Department 11/19/23 SAROJ RAYMOND [facility] During your visit today, we recorded the following information about you: Mimi Jerez MA 11/19/2023 3:20 PM Signed Please see thyroid labs- Scan on 11/19/2023 2:15 PM by Provider, GLENNY Flowers: Miscellaneous Lab Saroj Raymond DO 11/19/2023 4:50 PM Signed Please let patient know that thyroid labs are normal DO Shaji Keller M Robin, CRUZ 11/20/2023 8:30 AM Signed Phoned patient and given provider's message below with verbalized understanding. Allergies As of Date: 11/19/2023 Noted Allergy Reaction AMOXICILLIN 01/30/2005 4 - Karl CESAR DS (SULFAMETHOXAZOLE-TRIME* 01/30/2005 4 - Hives Date Reviewed: 11/19/2023 Reviewed by: Loni Limon LPN - Fully Assessed Reason for Visit: Results, Lab [1201] Prescriptions as of 11/20/2023 - lisdexamfetamine (VYVANSE) 70 mg capsule Take 1 capsule by mouth once daily for 30 days. - lisdexamfetamine (VYVANSE) 70 mg capsule Take 1 capsule by mouth once daily for 30 days. Do not start before December 17, 2023. - lisdexamfetamine (VYVANSE) 70 mg capsule Take 1 capsule by mouth once daily for 30 days. Do not start before January 15, 2024. - RABEprazole (ACIPHEX) 20 mg tablet Take 1 tablet by mouth once daily. - SUMAtriptan (IMITREX) 100 mg tablet Take 1 tablet (100 mg) by mouth as needed. take at onset of migraine, May repeat in 1 hour if needed. limit 2 doses in 24 hours. - dextroamphetamine-amphet amine (ADDERALL) 20 mg tablet Take 1 tablet by mouth once daily for 30 days. In the afternoon as needed for focus/concentration - tiZANidine (ZANAFLEX) 4 mg tablet Take 1 tablet by mouth every 8 hours as needed (muscle spasm low back). Problem List As Of Date 11/19/2023 Noted Resolved Screening for other and unspecified genitourina*10/28/2014 Gastroesophageal reflux disease without esophag*09/06/2015 Tobacco use disorder [F17.200] 09/06/2015 Gastroesophageal reflux disease with esophagiti*06/19/2021 Attention deficit disorder (ADD) in adult [F98.*06/19/2021 Dyslipidemia [E78.5] 07/25/2022 Ureterolithiasis [N20.1] 07/25/2022 Radiculopathy of lumbar region [M54.16] 07/25/2022 Headaches due to old head injury [G44.309, S09.*07/25/2022 Chronic midline low back pain with bilateral sc*07/25/2022 Well adult exam [Z00.00] 01/23/2023 Encounter Status:Closed by Jasson ENAMORADO on 11/20/[address] [facility] CNOVon 07-16-2023 CNOV Office Visit (UCWSTR ) -------- MARIAN HAMILTON ([id number]) 1985 M Date Time Provider Department 07/16/23 7:00 PM [facility]A [facility]ED[facility] During your visit today, we recorded the following information about you: Temperature Pulse Respiration Blood pressure 99.7 degrees 106/minute 18/minute 128/80 Weight 90.8 kg Frieda Heredia PA 07/16/2023 7:29 PM Signed This note was created using [employer]. Subjective Marian Hamilton is a 37 year old male. HPI 37-year-old male presents for fever, cough and congestion x 2 days. Patient states on Saturday he started getting fever, cough and congestion. He has been taking ibuprofen which has been keeping his fever down. He states that he has a dry cough that is persistent. He states he gets some pain in the chest with coughing. No chest pain at rest. No shortness of breath. He states he has had a scratchy throat. No vomiting or diarrhea. He does not have COPD. Reports asthma as a kid, not on any inhalers. 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 PAST MEDICAL HISTORY Diagnosis Date ADD (attention deficit disorder) diagnosed as a child GERD (gastroesophageal reflux disease) Hypercholesteremia Knee pain, bilateral Traumatic brain injury (HCC) 2011 [facility] IED; Residual headache, hearing loss, vision dominguez PAST SURGICAL HISTORY Procedure Laterality Date VASECTOMY UNI/BI SPX W/POSTOP SEMEN EXAMS ALLERGIES Amoxicillin and Septra Ds [Sulfamethoxazole-Trimet hoprim] MEDICATIONS [START ON 07/31/2023] lisdexamfetamine (VYVANSE) 70 mg capsule Take 1 capsule by mouth once daily for 30 days. Do not start before July 31, 2023. lisdexamfetamine (VYVANSE) 70 mg capsule Take 1 capsule by mouth once daily for 30 days. Do not start before July 04, 2023. RABEprazole (ACIPHEX) 20 mg tablet Take 1 tablet by mouth once daily. SUMAtriptan (IMITREX) 100 mg tablet Take 1 tablet by mouth as needed. take at onset of migraine, May repeat in 1 hour if needed. limit 2 doses in 24 hours. tiZANidine (ZANAFLEX) 4 mg tablet Take 1 tablet by mouth every 8 hours as needed (muscle spasm low back). lisdexamfetamine (VYVANSE) 70 mg capsule Take 1 capsule by mouth once daily for 30 days. FAMILY HISTORY Problem Relation Age of Onset Diabetes Maternal Grandfather Heart Maternal Grandmother MT, CHF other (lupus) Maternal Grandmother Alzheimer's Disease Paternal Grandfather dementia Heart Paternal Grandfather Kidney Disease Paternal Grandfather other (healthy) Son gerd other (healthy) Daughter Social History Tobacco Use Smoking status: Never Smokeless tobacco: Current Types: Chew Tobacco comments: chews tobacco Substance Use Topics Alcohol use: Yes Comment: rare Review of Systems Constitutional: Positive for chills, fatigue and fever. HENT: Positive for congestion and sore throat. Respiratory: Positive for cough. Negative for shortness of breath. Cardiovascular: Negative for chest pain. Gastrointestinal: Negative for diarrhea and vomiting. Objective BP 128/80 Pulse 106 Temp 37.6 ?C (99.7 ?F) (Tympanic) Resp 18 Wt 90.8 kg (200 lb 3.2 oz) SpO2 95% BMI 31.42 kg/m? Physical Exam Vitals and nursing note reviewed. Constitutional: General: He is not in acute distress. Appearance: Normal appearance. He is not toxic-appearing. HENT: Right Ear: Tympanic membrane and ear canal normal. Left Ear: Tympanic membrane and ear canal normal. Nose: Congestion present. Mouth/Throat: Mouth: Mucous membranes are moist. Pharynx: No oropharyngeal exudate or posterior oropharyngeal erythema. Eyes: Conjunctiva/sclera: Conjunctivae normal. Cardiovascular: Rate and Rhythm: Normal rate and regular rhythm. Pulmonary: Effort: Pulmonary effort is normal. Breath sounds: Normal breath sounds. No wheezing, rhonchi or rales. Comments: + Persistent dry cough, lungs clear Skin: General: Skin is warm and dry. Neurological: Mental Status: He is alert. Assessment and Plan ASSESSMENT/PLAN: 1. Influenza A - ICD9: 487.1, ICD10: J10.1 (primary diagnosis) -Rx for Tamiflu. No history of kidney issues. -Continue Tylenol, Motrin, fluids, rest 2. URI, acute - ICD9: 465.9, ICD10: J06.9 - Discussed viral etiology and rationale for treatment. - Symptomatic treatment with prn analgesia - Supportive care with fluids and rest - INFLUENZA AANDB MOLECULAR (POC)-positive for influenza A Diagnosis and treatment plan were discussed and questions were answered to the patient's satisfaction. Pt acknowledged understanding of concepts and follow up plan. Specific signs and symptoms that would indicate the need for higher level of care were discussed in detail warranting prompt ER evaluation. WILMER Hackett Krislyn P, PA 07/16/2023 7:24 PM Signed [facility] PATIENT INFO INFLUENZA INTRODUCTION Influenza (commonly called the flu) (more content not included)... Normal [facility] INFLUENZA A&B MOLECULAR (POC )on 07-16-2023 Flu A (POCT) Positive Abnormal Negative [facility] Procedural Control Valid [facility] CNOVon 06-05-2023 CNOV Office Visit (FAMPWS ) -------- MARIAN HAMILTON ([id number]) 1985 M Date Time Provider Department 06/05/23 9:00 AM SAROJ RAYMOND FAMPWS During your visit today, we recorded the following information about you: Temperature Pulse Respiration Blood pressure 97.2 degrees 64/minute 16/minute 118/84 Weight 93.4 kg Saroj Raymond DO 06/05/2023 9:35 AM Signed CC: Marian Nguyễn Sunil is a 37 year old male who presents to the office for medication followu p HPI: ADD, long standing, taking Vyvanse 57 mg a day, notices when doesn't take a dose of his medication that he is more depressed that day, doesn't have depression days he takes the medication. Symptoms have been well controlled overall, no SE with medication. Other medications such as adderall in the past caused CARNEY and jitteriness. NO SE with Vyvanse GERD, stable, only rare flare ups in middle of the night that wakes up coughing, mostly when eating spicy or red sauce foods for supper. Use of aciphex daily with benefit PAST MEDICAL HISTORY Diagnosis Date ADD (attention deficit disorder) diagnosed as a child GERD (gastroesophageal reflux disease) Hypercholesteremia Knee pain, bilateral Traumatic brain injury (HCC) 2011 [facility] IED; Residual headache, hearing loss, vision domignuez PAST SURGICAL HISTORY Procedure Laterality Date VASECTOMY UNI/BI SPX W/POSTOP SEMEN EXAMS Current Outpatient Medications Medication Sig RABEprazole (ACIPHEX) 20 mg tablet Take 1 tablet by mouth once daily. SUMAtriptan (IMITREX) 100 mg tablet Take 1 tablet by mouth as needed. take at onset of migraine, May repeat in 1 hour if needed. limit 2 doses in 24 hours. tiZANidine (ZANAFLEX) 4 mg tablet Take 1 tablet by mouth every 8 hours as needed (muscle spasm low back). [START ON 07/31/2023] lisdexamfetamine (VYVANSE) 70 mg capsule Take 1 capsule by mouth once daily for 30 days. Do not start before July 31, 2023. [START ON 07/04/2023] lisdexamfetamine (VYVANSE) 70 mg capsule Take 1 capsule by mouth once daily for 30 days. Do not start before July 04, 2023. lisdexamfetamine (VYVANSE) 70 mg capsule Take 1 capsule by mouth once daily for 30 days. No current facility-administered medications for this visit. ALLERGIES Allergen Reactions Amoxicillin Hives Septra Ds [Sulfamet* Hives Social History Tobacco Use Smoking status: Never Smokeless tobacco: Current Types: Chew Tobacco comments: chews tobacco Substance Use Topics Alcohol use: Yes Comment: rare ROS: See HPI PE: BP 118/84 Pulse 64 Temp (Src) 97.2 (Temporal) Resp 16 Wt 206 lb (93.4kg) Gen: AANDOX3, NAD, non-toxic appearing HEENT: PERRLA, EOMs intact b/l, nares without drainage, pharynx without erythema, exudate, lesions, or drainage. Uvula midline. Neck: No LAD, no thyromegaly, no meningismus. CV: RRR, no murmur Lungs: CTA b/l, no wheezing Skin: No rashes, lesions, or wounds on exposed skin. PDMP website checked and validated. All prescriptions have been APPROPRIATELY filled. No suspicious activity was identified. 06/05/2023 by Saroj Raymond DO ASSESSMENT/PLAN: 1. Attention deficit disorder (ADD) in adult - ICD9: 314.00, ICD10: F98.8 (primary diagnosis) Stable, rx refilled. Patient states that he will need prior authorization of medication - LISDEXAMFETAMINE 70 MG CAPSULE - LISDEXAMFETAMINE 70 MG CAPSULE - LISDEXAMFETAMINE 70 MG CAPSULE 2. Gastroesophageal reflux disease without esophagitis - ICD9: 530.81, ICD10: K21.9 - Discussed lifestyle modifications including losing weight, limiting caffeine, no meals three hours before sleep, and head of bed elevation - Continue treatment with Aciphex 20 mg a day Saroj Raymond DO Return if no improvement. Follow up with Saroj Raymond DO. To ER if develops chest pain, shortness of breath. Discussed risks, benefits, alternatives, and potential side effects of medications. Patient/Guardian expressed understanding and agreed with the plan. See patient instructions. Saroj Raymond DO [address] [place] [address] Allergies As of Date: 06/05/2023 Noted Allergy Reaction AMOXICILLIN 01/30/2005 4 - Hives SEPTRA DS (SULFAMETHOXAZOLE-TRIME* 01/30/2005 4 - Hives Date Reviewed: 06/05/2023 Reviewed by: Loni Limon LPN - Fully Assessed Reason for Visit: Follow Up [171] Primary Visit Diagnosis:Attention deficit disorder (ADD) in adult [F98.8] Other Visit Diagnosis:Gastroesophage al reflux disease without esophagitis [K21.9] Order(s):[START ON 07/31/2023] lisdexamfetamine (VYVANSE) 70 mg capsuleTake 1 capsule by mouth once daily for 30 days. Do not start before July 31, 2023.Disp: 30 capsuleRfl: 0 [START ON 07/04/2023] lisdexamfetamine (VYVANSE) 70 mg capsuleTake 1 capsule by mouth once daily for 30 days. Do not start before July 04, 2023.Disp: 30 c (more content not included)... [facility] ([facility]) -------- MARIAN HAMILTON ([id number]) 1985 M Date Time Provider Department 06/05/23 SAROJ RAYMOND [facility] During your visit today, we recorded the following information about you: Loni Limon LPN 06/05/2023 9:57 AM Signed Pt. is taking Vyvanse and will need Prior Auth. Marla Ochoa LPN 06/05/2023 3:31 PM Signed electronic PA requested. Marla Ochoa LPN 06/05/2023 4:55 PM Signed rec'd denial. PA appeal faxed for review. Marla Ochoa LPN 06/11/2023 2:44 PM Signed Called the pharmacy and this rx was dispensed 06/05/23 as brand name with no PA needed. Allergies As of Date: 06/05/2023 Noted Allergy Reaction AMOXICILLIN 01/30/2005 4 - Hives SEPTRA DS (SULFAMETHOXAZOLE-TRIME* 01/30/2005 4 - Hives Date Reviewed: 06/05/2023 Reviewed by: Loni Limon LPN - Fully Assessed Reason for Visit: Insurance Authorization [[id number]] Prescriptions as of 06/11/2023 - lisdexamfetamine (VYVANSE) 70 mg capsule Take 1 capsule by mouth once daily for 30 days. Do not start before July 31, 2023. - lisdexamfetamine (VYVANSE) 70 mg capsule Take 1 capsule by mouth once daily for 30 days. Do not start before July 04, 2023. - lisdexamfetamine (VYVANSE) 70 mg capsule Take 1 capsule by mouth once daily for 30 days. - RABEprazole (ACIPHEX) 20 mg tablet Take 1 tablet by mouth once daily. - SUMAtriptan (IMITREX) 100 mg tablet Take 1 tablet by mouth as needed. take at onset of migraine, May repeat in 1 hour if needed. limit 2 doses in 24 hours. - tiZANidine (ZANAFLEX) 4 mg tablet Take 1 tablet by mouth every 8 hours as needed (muscle spasm low back). Problem List As Of Date 06/05/2023 Noted Resolved Screening for other and unspecified genitourina*10/28/2014 Gastroesophageal reflux disease without esophag*09/06/2015 Tobacco use disorder [F17.200] 09/06/2015 Gastroesophageal reflux disease with esophagiti*06/19/2021 Attention deficit disorder (ADD) in adult [F98.*06/19/2021 Dyslipidemia [E78.5] 07/25/2022 Ureterolithiasis [N20.1] 07/25/2022 Radiculopathy of lumbar region [M54.16] 07/25/2022 Headaches due to old head injury [G44.309, S09.*07/25/2022 Chronic midline low back pain with bilateral sc*07/25/2022 Well adult exam [Z00.00] 01/23/2023 Encounter Status:Closed by MARLA OCHOA on 06/11/23 [facility] 03-04-2023 [facility] Tele[facility] ([facility]) -------- MARIAN HAMILTON ([id number]) 1985 M Date Time Provider Department 03/04/23 [facility] During your visit today, we recorded the following information about you: Meri Mimi 03/04/2023 7:57 AM Signed Please see pt mychart message- Marian Cihutr Famp My Chart Rx Pool (supporting Saroj Raymond DO) 9 hours ago (10:29 PM) DW Good evening, I just looked at my medication bottle, and I have 5 pills left of the Vyvanse 60mg. I am noticing a slight change in the way I feel with it, but I think maybe we should try 70mg. Thank you! RX pended for review. Last refilled 02/06/2023 #30 0 refills. Last office visit- 01/23/2023. Pt requesting increase in dosage. WOLF Regan Rebekah, APRN.CNP 03/05/2023 8:37 AM Signed The following approved medication requests have been transmitted electronically. Requested Prescriptions Signed Prescriptions Disp Refills lisdexamfetamine (VYVANSE) 70 mg capsule 30 capsule 0 Sig: Take 1 capsule by mouth once daily for 30 days. Authorizing Provider: ANGELIA LOPEZ APRN.MACHINE FOLDER PDMP website checked and validated. All prescriptions have been APPROPRIATELY filled. No suspicious activity was identified. 03/05/2023 by Angelia Lopez CNP. Bee Pelaez Cma 03/05/2023 9:02 AM Signed Patient notified and verbalized understanding Bee Pelaez Cma Allergies As of Date: 03/04/2023 Noted Allergy Reaction AMOXICILLIN 01/30/2005 4 - Hives SEPTRA DS (SULFAMETHOXAZOLE-TRIME* 01/30/2005 4 - Hives Date Reviewed: 01/23/2023 Reviewed by: Loni Limon LPN - Fully Assessed Reason for Visit: Patient Question [0597] Visit Diagnosis:Attention deficit disorder (ADD) in adult [F98.8] Order(s):lisdexamfetamin e (VYVANSE) 70 mg capsuleTake 1 capsule by mouth once daily for 30 days.Disp: 30 capsuleRfl: 0 Prescriptions as of 03/05/2023 - lisdexamfetamine (VYVANSE) 70 mg capsule Take 1 capsule by mouth once daily for 30 days. - RABEprazole (ACIPHEX) 20 mg tablet Take 1 tablet by mouth once daily. - SUMAtriptan (IMITREX) 100 mg tablet Take 1 tablet by mouth as needed. take at onset of migraine, May repeat in 1 hour if needed. limit 2 doses in 24 hours. - tiZANidine (ZANAFLEX) 4 mg tablet Take 1 tablet by mouth every 8 hours as needed (muscle spasm low back). Problem List As Of Date 03/04/2023 Noted Resolved Screening for other and unspecified genitourina*10/28/2014 Gastroesophageal reflux disease without esophag*09/06/2015 Tobacco use disorder [F17.200] 09/06/2015 Gastroesophageal reflux disease with esophagiti*06/19/2021 Attention deficit disorder (ADD) in adult [F98.*06/19/2021 Dyslipidemia [E78.5] 07/25/2022 Ureterolithiasis [N20.1] 07/25/2022 Radiculopathy of lumbar region [M54.16] 07/25/2022 Headaches due to old head injury [G44.309, S09.*07/25/2022 Chronic midline low back pain with bilateral sc*07/25/2022 Well adult exam [Z00.00] 01/23/2023 Prescriptions ordered this encounter Disp Refills Start End LISDEXAMFETAMINE 70 MG CAPSULE 30 c* 0 03/05/2023 04/04/2023 Route: ORAL Sig: Take 1 capsule by mouth once daily for 30 days. Medications Discontinued During This Encounter Prescriptions - lisdexamfetamine (VYVANSE) 60 mg capsule (Discontinued) Take 1 capsule by mouth once daily for 30 days. Encounter Status:Closed by BEE PELAEZ CMA on 03/05/23 [facility] 02-06-2023 [facility] Telephone (FAMPWS) -------- MARIAN HAMILTON ([id number]) 1985 M Date Time Provider Department 02/06/23 SAROJ RAYMOND During your visit today, we recorded the following information about you: Dulce Maria Chilel, RN 02/06/2023 3:52 PM Signed Pts called in and reports [facility] [place] is not able to get the Vyvanse 60 mgs in. states she is going to see if they can get to 50 mg and 10 mg in, if not she is going to have us send the medication to [facility] pharmacy. Lor Laureano LPN 02/06/2023 4:35 PM Signed Patient calling back asking to have rx sent to [facility] please. Pending rx to file. Please advise Patient has been identified by name and date of : Spouse phones for refill(s): Requested Prescriptions Pending Prescriptions Disp Refills lisdexamfetamine (VYVANSE) 60 mg capsule 30 capsule 0 Sig: Take 1 capsule by mouth once daily for 30 days. Date of last office visit in primary care: 01/23/2023, has appt 06/05/2023 Last 2 Encounter Wt Readings: Date: Wt: 01/23/2023 91.6 kg (202 lb) 07/25/2022 94.3 kg (208 lb) Previous labs/tests for medication: Not applicable Please advise. Thank you. Patti Loomis LPN, APRN.CNP 02/06/2023 5:11 PM Signed PDMP website checked and validated. All prescriptions have been APPROPRIATELY filled. No suspicious activity was identified. 02/06/2023 by Patti Rivas APRN.CNP . The following approved medication requests have been transmitted electronically. Requested Prescriptions Signed Prescriptions Disp Refills lisdexamfetamine (VYVANSE) 60 mg capsule 30 capsule 0 Sig: Take 1 capsule by mouth once daily for 30 days. Authorizing Provider: PATTI RIVAS APRN.CNP Allergies As of Date: 02/06/2023 Noted Allergy Reaction AMOXICILLIN 01/30/2005 4 - Hives SEPTRA DS (SULFAMETHOXAZOLE-TRIME* 01/30/2005 4 - Hives Date Reviewed: 01/23/2023 Reviewed by: Loni Limon LPN - Fully Assessed Reason for Visit: Medication Problem [65] Visit Diagnosis:Attention deficit disorder (ADD) in adult [F98.8] Order(s):lisdexamfetamin e (VYVANSE) 60 mg capsuleTake 1 capsule by mouth once daily for 30 days.Disp: 30 capsuleRfl: 0 Prescriptions as of 02/06/2023 - lisdexamfetamine (VYVANSE) 60 mg capsule Take 1 capsule by mouth once daily for 30 days. - RABEprazole (ACIPHEX) 20 mg tablet Take 1 tablet by mouth once daily. - SUMAtriptan (IMITREX) 100 mg tablet Take 1 tablet by mouth as needed. take at onset of migraine, May repeat in 1 hour if needed. limit 2 doses in 24 hours. - tiZANidine (ZANAFLEX) 4 mg tablet Take 1 tablet by mouth every 8 hours as needed (muscle spasm low back). Problem List As Of Date 02/06/2023 Noted Resolved Screening for other and unspecified genitourina*10/28/2014 Gastroesophageal reflux disease without esophag*09/06/2015 Tobacco use disorder [F17.200] 09/06/2015 Gastroesophageal reflux disease with esophagiti*06/19/2021 Attention deficit disorder (ADD) in adult [F98.*06/19/2021 Dyslipidemia [E78.5] 07/25/2022 Ureterolithiasis [N20.1] 07/25/2022 Radiculopathy of lumbar region [M54.16] 07/25/2022 Headaches due to old head injury [G44.309, S09.*07/25/2022 Chronic midline low back pain with bilateral sc*07/25/2022 Well adult exam [Z00.00] 01/23/2023 Prescriptions ordered this encounter Disp Refills Start End LISDEXAMFETAMINE 60 MG CAPSULE 30 c* 0 02/06/2023 03/08/2023 Route: ORAL Sig: Take 1 capsule by mouth once daily for 30 days. Medications Discontinued During This Encounter Prescriptions - lisdexamfetamine (VYVANSE) 60 mg capsule (Discontinued) Take 1 capsule by mouth once daily for 30 days. Encounter Status:Closed by LONI LIMON LPN on 02/06/[address] [facility] CNPNon 01-25-2023 [facility] Telephone (FAMPWS) -------- MARIAN HAMILTON ([id number]) 1985 M Date Time Provider Department 01/25/23 [facility] During your visit today, we recorded the following information about you: Saroj Raymond DO 01/25/2023 7:52 AM Signed Please inform patient that his labs are all normal except he is in the prediabetes range with a1c at 5.7%. make sure he is cutting back on sugars and starches in his diet. DO Yvon Keller Susan LPN 01/25/2023 9:29 AM Signed Pt. informed. Loni Limon LPN Allergies As of Date: 01/25/2023 Noted Allergy Reaction AMOXICILLIN 01/30/2005 4 - Hives SEPTRA DS (SULFAMETHOXAZOLE-TRIME* 01/30/2005 4 - Hives Date Reviewed: 01/23/2023 Reviewed by: Loni Limon LPN - Fully Assessed Reason for Visit: Results [95] Prescriptions as of 01/25/2023 - lisdexamfetamine (VYVANSE) 60 mg capsule Take 1 capsule by mouth once daily for 30 days. - SUMAtriptan (IMITREX) 100 mg tablet Take 1 tablet by mouth as needed. take at onset of migraine, May repeat in 1 hour if needed. limit 2 doses in 24 hours. - tiZANidine (ZANAFLEX) 4 mg tablet Take 1 tablet by mouth every 8 hours as needed (muscle spasm low back). - RABEprazole (ACIPHEX) 20 mg tablet Take 1 tablet by mouth once daily. Problem List As Of Date 01/25/2023 Noted Resolved Screening for other and unspecified genitourina*10/28/2014 Gastroesophageal reflux disease without esophag*09/06/2015 Tobacco use disorder [F17.200] 09/06/2015 Gastroesophageal reflux disease with esophagiti*06/19/2021 Attention deficit disorder (ADD) in adult [F98.*06/19/2021 Dyslipidemia [E78.5] 07/25/2022 Ureterolithiasis [N20.1] 07/25/2022 Radiculopathy of lumbar region [M54.16] 07/25/2022 Headaches due to old head injury [G44.309, S09.*07/25/2022 Chronic midline low back pain with bilateral sc*07/25/2022 Well adult exam [Z00.00] 01/23/2023 Encounter Status:Closed by LONI LIMON LPN on 01/25/23 [facility] CNOVon 01-23-2023 CNOV Office Visit (FAMPWS ) -------- HAMILTONMARIAN ([id number]) 1985 M Date Time Provider Department 01/23/23 9:20 AM [facility] During your visit today, we recorded the following information about you: Temperature Pulse Respiration Blood pressure 97 degrees 68/minute 16/minute 104/70 Weight Height 91.6 kg 1.7 m Saroj Raymond DO 01/23/2023 11:28 AM Signed CC: Marian Nguyễn Sunil is a 37 year old male who presents to the office for physical HPI: ADD, long standing, taking Vyvanse 50 mg a day, notices when doesn't take a dose of his medication that he is more depressed that day, doesn't have depression days he takes the medication. Also notices that doesn't feel this dose is helping his attention and focusing ability GERD, stable, only rare flare ups in middle of the night that wakes up coughing, mostly when eating spicy or red sauce foods for supper. Low back pain, much improved after PT PAST MEDICAL HISTORY Diagnosis Date ADD (attention deficit disorder) diagnosed as a child GERD (gastroesophageal reflux disease) Hypercholesteremia Knee pain, bilateral Traumatic brain injury (HCC) 2011 [facility] IED; Residual headache, hearing loss, vision dominguez PAST SURGICAL HISTORY Procedure Laterality Date VASECTOMY UNI/BI SPX W/POSTOP SEMEN EXAMS Social History: Social History Tobacco Use Smoking status: Never Smokeless tobacco: Current Types: Chew Tobacco comments: chews tobacco Substance Use Topics Alcohol use: Yes Comment: rare FAMILY HISTORY Problem Relation Age of Onset Diabetes Maternal Grandfather Heart Maternal Grandmother MT, CHF other (lupus) Maternal Grandmother Alzheimer's Disease Paternal Grandfather dementia Heart Paternal Grandfather Kidney Disease Paternal Grandfather other (healthy) Son gerd other (healthy) Daughter Current Outpatient prescriptions: lisdexamfetamine (VYVANSE) 50 mg capsule Take 1 capsule by mouth once daily for 30 days. lisdexamfetamine (VYVANSE) 50 mg capsule Take 1 capsule by mouth once daily for 30 days. Do not start before August 25, 2022. lisdexamfetamine (VYVANSE) 50 mg capsule Take 1 capsule by mouth once daily for 30 days. Do not start before July 28, 2022. SUMAtriptan (IMITREX) 100 mg tablet Take 1 tablet by mouth as needed. take at onset of migraine, May repeat in 1 hour if needed. limit 2 doses in 24 hours. tiZANidine (ZANAFLEX) 4 mg tablet Take 1 tablet by mouth every 8 hours as needed (muscle spasm low back). RABEprazole (ACIPHEX) 20 mg tablet Take 1 tablet by mouth once daily. Allergies: ALLERGIES Allergen Reactions Amoxicillin Hives Septra Ds [Sulfamet* Hives ROS: See HPI PE: 01/23/23 0908 BP: 104/70 Pulse: 68 Resp: 16 Temp: 36.1 ?C (97 ?F) TempSrc: Right Tympanic Weight: 91.6 kg (202 lb) Height: 170 cm (5' 6.93 ) Gen: AANDO, NAD, non-toxic appearing, Pleasant, cooperative HEENT: NT/AC, PERRLA, EOMs intact b/l, nares clear and patent b/l, pharynx without erythema, exudate or lesions. Uvula midline. MMM, EACs without erythema or debris. TMs pearly mcgarry with intact landmarks b/l. Neck: supple, No cervical LAD, no thyromegaly, no carotid bruits CV: RRR, normal S1 and S2, no murmurs, no gallops, no rubs, Pulses 2+ and symmetric in UE and LE b/l Lungs: normal respiratory effort, CTA b/l, no wheezing or rhonchi or rales Abd: soft, NT, ND, +BS, no hepatosplenomegaly MS: FROM all 4 extremities Neuro: CN II-XII intact b/l, strength 5/5 b/l UE and LE, DTRs 2/4 UE and LE, sensation intact. Skin: warm, dry, intact, No rashes or lesions on exposed skin. No edema, normal pulses ASSESSMENT/PLAN: 1. Well adult exam - ICD9: V70.0, ICD10: Z00.00 (primary diagnosis) - Counseled on healthy diet and regular exercise - Discussed need for and benefit of weight loss. BMI 31.70 kg/(m2) - TSH BLD - C-REACTIVE PROTEIN (CRP) - SED RATE WESTERGREN - HGB A1C - T4 FREE/FREE THYROX - MAGNESIUM BLD - VITAMIN B12 BLOOD 2. Gastroesophageal reflux disease without esophagitis - ICD9: 530.81, ICD10: K21.9 - Discussed lifestyle modifications including losing weight, limiting caffeine, no meals three hours before sleep, and head of bed elevation - Continue treatment with PPI - MAGNESIUM BLD - VITAMIN B12 BLOOD 3. Attention deficit disorder (ADD) in adult - ICD9: 314.00, ICD10: F98.8 Increase dose of Vyvanse to 60 mg a day, may need dose to increase to 70 mg a day if not enough/effective as d/w him today, he will update office in 1 month - LISDEXAMFETAMINE 60 MG CAPSULE 4. Chronic midline low back pain with bilateral sciatica - ICD9: 724.2, 724.3, 338.29, ICD10: M54.41, M54.42, G89.29 Chronic low back pain Improved/resolved with PHYSICAL THERAPY and exercise Saroj Raymond, DO To ER if develops chest pain, shortness of breath, or severe worsening of symptoms. Discussed risks, be (more content not included)... Normal [facility] CRP SerPl-mCncon 01-23-2023 CRP [Mass/Vol] mg/L Normal <0.9 [facility] Comment on above: Order Comment: Specimen Type: BLOOD SPEC IMENOrdering Facility: [facility] Address: [address] [place] [address] Performed By: #### 3 016-3, 59532-7, 3024-7, 1985- ####[facility] LABCLIA [id number] [place] [address] [place] ESR Westergren method (Bld) [Velocity]on 01-23-2023 ESR (Bld) [Velocity] 2 mm/h 0 - 15 mm/hr [facility] ESR (Bld) [Velocity] 2 mm/h Normal 0-15 [facility] Comment on above: Order Comment: Specimen Type: BLOOD SPEC IMENOrdering Facility: [facility] Address: [address] [place] [address] Performed By: #### 4 537-7 ####[facility] LABIA [id number] [place] HbA1c (Bld)on 01-23-2023 Average glucose Estimated from glycated hemoglobin (Bld) [Mass/Vol] 117 mg/dL Normal [facility] Comment on above: Order Comment: Specimen Type: BLOOD SPEC IMENOrdering Facility: [facility] Address: [address] [place] [address] Result Comment: eAG: (Estimated average glucose) is a calculated value from HgbA1c and is phone representative of the average blood glucose level in the last 2-3 month period. Performed By: #### 5 5454-3 ####[facility] LABIA [id number] [address] [place] HbA1c (Bld) [Mass fraction] 5.7 % High 4.3-5.6 [facility] Comment on above: Order Comment: Specimen Type: BLOOD SPEC IMENOrdering Facility: [facility] Address: [address] [place] [address] Result Comment: [place] Diabetes Association guidelines indicate that patients with HgbA1c in the range 5.7-6.4% are at increased risk for development of diabetes, and intervention by lifestyle modification may be beneficial. HgbA1c greater or equal to 6.5% is considered diagnostic of diabetes. Performed By: #### 5 5454-3 ####[facility] LABIA [id number] [place] [address] [place] Magnesium SerPl-mCncon 01-23 Magnesium [Mass/Vol] 2.2 mg/dL Normal 1.7-2.3 [facility] Comment on above: Order Comment: Specimen Type: BLOOD SPEC IMENOrdering Facility: [facility] Address: [address] [place] [address] Performed By: #### 3 016-3, , 3023-11, 1987-09 ####[facility] LABIA [id number] [place] [address] [place] T4 Free SerPl-mCncon 023 Free T4 [Mass/Vol] 1.2 ng/dL Normal 0.9-1.7 [facility] Comment on above: Order Comment: Specimen Type: BLOOD SPEC IMENOrdering Facility: [facility] Address: [address] [place] [address] Performed By: #### 3 016-3, , 3023-11, 1987-09 ####[facility] LABIA [id number] [place] [address] [place] TSH SerPl-aCncon 01-23-2023 TSH Qn 1.480 m[IU]/L Normal 0.270-4.200 [facility] Comment on above: Order Comment: Specimen Type: BLOOD SPEC IMENOrdering Facility: [facility] Address: [address] [place] [address] Performed By: #### 3 016-3, 70310-8, 3024-7, 1987-5 ####[facility] LABCLIA [id number] [place] [address] [place] Vit B12 SerPl-mCncon 023 Cobalamin (Vitamin B12) [Mass/Vol] 937 pg/mL Normal 232-1245 [facility] Comment on above: Order Comment: Specimen Type: BLOOD SPEC IMENOrdering Facility: [facility] Address: [address] [place] [address] Performed By: #### 2 132-9 ####[facility] LABCLIA [id number] [address] [place] Rapid Strep A Screenon 06-02 S. pyogenes Ag IA Ql (Unsp spec) Negative Normal [facility] Comment on above: Performed By: #### [id number] #### FORTINO Microbiology Subsection [facility] [place] [address] [place] Screenon 05-31-2018 [place] Scr Negative Normal Neg [facility] Comment on above: Performed By: #### [id number] #### FORTINO Chemistry Manual Subsection [facility] [place] [address] Vital Signs Date Time Vital Sign Value Performing Clinician Shelia lozoya 11-19-2023 10:47-0400 Body height 168 cm Saroj PIERIS [employer] Work Phone: [facility] 11-19-2023 10:47-0400 Body mass index (BMI) [Ratio] 31.82 kg/m2 Saroj Raymond DO Work Phone: [facility] 11-19-2023 10:47-0400 Body temperature 97.39 [degF] Saroj Raymond DO Work Phone: [facility] 11-19-2023 10:47-0400 Body weight 89.81 kg Saroj Raymond DO Work Phone: [facility] 11-19-2023 10:47-0400 Diastolic blood pressure 80 mm[Hg] Saroj Raymond DO Work Phone: [facility] 11-19-2023 10:47-0400 Heart rate 80 /min Saroj Raymond DO Work Phone: [facility] 11-19-2023 10:47-0400 Respiratory rate 12 /min Saroj Raymond DO Work Phone: [facility] 11-19-2023 10:47-0400 Systolic blood pressure 124 mm[Hg] Saroj Raymond DO Work Phone: [facility] 07-16-2023 19:05-0500 Body temperature 99.7 [degF] Krislyn Aberegg PA Work Phone: [facility] 07-16-2023 19:05-0500 Body weight 90.81 kg Krislyn Aberegg PA Work Phone: [facility] 07-16-2023 19:05-0500 Diastolic blood pressure 80 mm[Hg] Krislyn Aberegg PA Work Phone: [facility] 07-16-2023 19:05-0500 Heart rate 106 /min Krislyn Aberegg PA Work Phone: [facility] 07-16-2023 19:05-0500 Respiratory rate 18 /min Krislyn Aberegg PA Work Phone: [facility] 07-16-2023 19:05-0500 SaO2% (BldA) [Mass fraction] 95 % Krislyn Aberegg PA Work Phone: [facility] 07-16-2023 19:05-0500 Systolic blood pressure 128 mm[Hg] Krislyn Aberegg PA Work Phone: [facility] 01-23-2023 09:08-0400 Body height 170 cm Saroj Raymond DO Work Phone: [facility] 01-23-2023 09:08-0400 Body temperature 97 [degF] Saroj Raymond DO Work Phone: [facility] 01-23-2023 09:08-0400 Body weight 91.63 kg Saroj Raymond DO Work Phone: [facility] 01-23-2023 09:08-0400 Diastolic blood pressure 70 mm[Hg] Saroj Raymond DO Work Phone: [facility] 01-23-2023 09:08-0400 Heart rate 68 /min Saroj Raymond DO Work Phone: [facility] 01-23-2023 09:08-0400 Respiratory rate 16 /min Saroj Raymond DO Work Phone: [facility] 01-23-2023 09:08-0400 Systolic blood pressure 104 mm[Hg] Saroj Raymond DO Work Phone: [facility] 07-25-2022 08:49-0500 Body temperature 97 [degF] Saroj Raymond DO Work Phone: [facility] 07-25-2022 08:49-0500 Body weight 94.35 kg Saroj Raymond DO Work Phone: [facility] 07-25-2022 08:49-0500 Diastolic blood pressure 80 mm[Hg] Saroj Raymond DO Work Phone: [facility] 07-25-2022 08:49-0500 Heart rate 80 /min Saroj Raymond DO Work Phone: [facility] 07-25-2022 08:49-0500 Respiratory rate 16 /min Saroj Raymond DO Work Phone: [facility] 07-25-2022 08:49-0500 Systolic blood pressure 118 mm[Hg] Saroj Raymond DO Work Phone: [facility] 07-15-2022 12:29-0500 Body temperature 98.01 [degF] Amelia Chicas APRN.MACHINE FOLDER Work Phone: [facility] 07-15-2022 12:29-0500 Body weight 95.71 kg Amelia Chicas APRN.MACHINE FOLDER Work Phone: [facility] 07-15-2022 12:29-0500 Diastolic blood pressure 80 mm[Hg] Amelia Chicas APRN.MACHINE FOLDER Work Phone: [facility] 07-15-2022 12:29-0500 Heart rate 70 /min Amelia Chicas APRN.MACHINE FOLDER Work Phone: [facility] 07-15-2022 12:29-0500 Respiratory rate 16 /min Amelia Chicas APRN.MACHINE FOLDER Work Phone: [facility] 07-15-2022 12:29-0500 SaO2% (BldA) [Mass fraction] 99 % Amelia Chicas APRN.MACHINE FOLDER Work Phone: [facility] 07-15-2022 12:29-0500 Systolic blood pressure 114 mm[Hg] Amelia Chicas APRN.MACHINE FOLDER Work Phone: [facility] Encounters Encounter Date Encounter Type Care Provider Facility Start: 03-11-2024 End: 03-12-2024 Refill Saroj Raymond DO Work Phone: [facility] Comment on above: Refill Request Start: 02-17-2024 End: 02-18-2024 Refill Saroj Raymond DO Work Phone: [facility] Comment on above: Refill Request Start: 01-16-2024 End: 01-17-2024 Refill Saroj Fabiana Raymond DO Work Phone: [facility] Comment on above: Refill Request Start: 12-17-2023 Refill Saroj Fabiana tsai DO Work Phone: [facility] Comment on above: Refill Request Start: 11-25-2023 Telephone encounter Saroj arnett DO Work Phone: [facility] Comment on above: [facility] requesting fax o rder Start: 11-19-2023 Telephone encounter Saroj arnett DO Work Phone: [facility] Comment on above: Results, Lab Start: 11-19-2023 End: 11-19-2023 ambulatory SAROJ RAYMOND Facility:[facility] Start: 11-19-2023 End: 11-19-2023 Patient encounter procedure Saroj Raymond DO Work Phone: [facility] Comment on above: Palpitations (Primar y Dx); Attention deficit disorder (ADD) in adult; Gastroesophageal reflux disease without esophagitis; Headaches due to old head injury Start: 10-14-2023 Refill Saroj tsai DO Work Phone: [facility] Comment on above: Refill Request Start: 09-09-2023 Refill Saroj tsai DO Work Phone: [facility] Comment on above: Refill Request Start: 07-17-2023 ambulatory Saroj tsai DO Work Phone: [facility] Start: 07-17-2023 Letter encounter Saroj cardona DO Work Phone: [facility] Comment on above: Urgent care letter Start: 07-16-2023 End: 07-16-2023 ambulatory SAROJ RAYMOND Facility:[facility] Start: 07-16-2023 End: 07-16-2023 Patient encounter procedure Frieda Heredia PA Work Phone: [facility] Comment on above: Influenza A (Primary Dx); URI, acute Start: 06-05-2023 End: 06-05-2023 ambulatory SAROJ RAYMOND Facility:[facility] Start: 05-05-2023 Refill Patti Rivas GEODETIC COMPUTATOR.MACHINE FOLDER Work Phone: [facility] Comment on above: Refill Request Start: 05-03-2023 Refill Sarjo tsai DO Work Phone: [facility] Comment on above: Refill Request Start: 04-06-2023 Refill Angelia jose GEODETIC COMPUTATOR.MACHINE FOLDER Work Phone: [facility] Comment on above: Refill Request Start: 03-04-2023 Telephone encounter Saroj arnett DO Work Phone: [facility] Comment on above: Patient Question Start: 02-06-2023 Telephone encounter Saroj arnett DO Work Phone: [facility] Comment on above: Medication Problem Start: 02-04-2023 Refill Saroj tsai DO Work Phone: [facility] Comment on above: Refill Request Start: 01-25-2023 Telephone encounter Saroj arnett DO Work Phone: [facility] Comment on above: Results Start: 01-23-2023 Encounter for fuentes saini adult medical examination without abnormal findings SAROJ RAYMOND [facility] Start: 01-23-2023 End: 01-23-2023 ambulatory SAROJ RAYMOND Facility:[facility] Start: 01-23-2023 End: 01-23-2023 Patient encounter procedure Saroj Raymond DO Work Phone: [facility] Comment on above: Well adult exam ([facility] mahin Dx); Gastroesophageal reflux disease without esophagitis; Attention deficit disorder (ADD) in adult; Chronic midline low back pain with bilateral sciatica Start: 01-23-2023 End: 01-23-2023 Patient encounter status Saroj Raymond DO Work Phone: [facility] Work Phone: Start: 12-25-2022 Refill Saroj tsai DO Work Phone: [facility] Comment on above: Refill Request Start: 08-06-2022 Telephone encounter Saroj arnett DO Work Phone: [facility] Comment on above: Zurdo GUILLEN Start: 07-25-2022 End: 07-25-2022 Patient encounter procedure Saroj Raymond DO Work Phone: [facility] Comment on above: Gastroesophageal ref lux disease without esophagitis (Primary Dx); Attention deficit disorder (ADD) in adult; Headaches due to old head injury; Dyslipidemia; Ureterolithiasis; Radiculopathy of lumbar region; Chronic midline low back pain with bilateral sciatica Start: 07-15-2022 End: 07-15-2022 Patient encounter procedure Amelia Chicas APRN.MACHINE FOLDER Work Phone: [facility] Comment on above: Acute midline low ba ck pain without sciatica (Primary Dx) Start: 07-02-2022 Refill Saroj tsai DO Work Phone: [facility] Comment on above: Refill Request Start: 05-07-2022 Refill Patti Caputocarlitos hamilton GEODETIC COMPUTATOR.MACHINE FOLDER Work Phone: [facility] Comment on above: Refill Request Start: 01-31-2022 End: 01-31-2022 [facility] Pattisyd Hyatt GEODETIC COMPUTATOR.MACHINE FOLDER Work Phone: [facility] Comment on above: Attention deficit di sorder (ADD) in adult (Primary Dx); Headaches due to old head injury Start: 12-08-2021 Refill Saroj tsai DO Work Phone: [facility] Comment on above: Refill Request Start: 01-10-2017 End: 01-10-2017 [facility] Procedures Date Procedure Procedure Detail Performing Clinician Start: 11-19-2023 Adult depression screening assessment Saroj Raymond DO Work Phone: Start: 07-16-2023 INFLUENZA A&B MOLECU LAR (POC) Frieda Heredia PA Work Phone: Start: 02-19-2023 Lipid 1996 panel - S ruth or Plasma Saroj Raymond DO Work Phone: Start: 05-26-2018 Adult depression screening assessment Saroj Raymond DO Work Phone: Start: 06-24-2015 Lipid 1996 panel - S ruth or Plasma Saroj Raymond DO Work Phone: Plan of Treatment Date Care Activity Detail Author Start: 02-20-2028 Lipid panel Lipid Screening [facility] Start: 06-27-2026 Urine microalbumin profile [facility] Start: 11-18-2024 Anxiety Screening Anxiety Screening [facility] Start: 11-18-2024 Depression Screening Depression Scre ening [facility] Start: 06-05-2024 Covid-19 Vaccine () Covid-19 Vaccine () [facility] Comment on above: Postponed from 01/25 (Declined at this time) Start: 05-19-2024 End: 05-19-2024 Patient encounter procedure 05/19/2024 10:30 AM EST Office Visit Colorectal Surgery [address] [address] Koko Anguiano MD [address] [place] [address] second opinion Colorectal Surgery Comment on above: second opinion Start: 04-17-2024 End: 04-17-2024 Patient encounter procedure 04/17/2024 10:40 AM EST Office Visit [facility] [address] [place], [place] [id number] Saroj Raymond DO [address] [place], [place] [id number] 6 month medication check. [facility] Comment on above: 6 month medication c williamk. Start: 01-26-2024 Covid-19 Vaccine ( season) Covid-19 Vaccine ( season) [facility] Start: 01-26-2024 Influenza vaccination Influenza Vacc ine (#1) [facility] Start: 11-19-2023 End: 02-18-2024 Thyrotropin [Units/volume] in Serum or Plasma THYROID STIMULATING HORMONE Lab Routine Palpitations Expected: 11/19/2023, Expires: 02/18/2024 [facility] Work Phone: Comment on above: Expected: 11/19/2023 , Expires: 02/18/2024 Start: 11-19-2023 End: 02-18-2024 Thyroxine (T4) free [Mass/volume] in Serum or Plasma T4 FREE/FREE THYROXINE Lab Routine Palpitations Expected: 11/19/2023, Expires: 02/18/2024 [facility] Comment on above: Expected: 11/19/2023 , Expires: 02/18/2024 Start: 11-19-2023 End: 02-18-2024 Triiodothyronine (T3) Free [Mass/volume] in Serum or Plasma T3, FREE Lab Routine Palpitations Expected: 11/19/2023, Expires: 02/18/2024 [facility] Comment on above: Expected: 11/19/2023 , Expires: 02/18/2024 Start: 11-19-2023 End: 11-19-2023 Patient encounter procedure 11/19/2023 10:40 AM EDT Office Visit [facility] [address] [facility] [place] [id number] Saroj Raymond DO [address] [place] [address] Medication [facility] Comment on above: Medication Start: 05-27-2023 Behavioral Health Screening Behavioral Health Screening [facility] Start: 01-25-2023 Covid-19 Vaccine () Covid-19 Vaccine () [facility] Start: 01-25-2023 Influenza vaccination [facility] Start: 01-23-2023 End: 03-25-2023 C reactive protein [Mass/volume] in Serum or Plasma [facility] Work Phone: Comment on above: Expected: 01/23/2023 , Expires: 03/25/2023 Start: 01-23-2023 End: 03-25-2023 Cobalamin (Vitamin B12) [Mass/volume] in Serum or Plasma [facility] Work Phone: Comment on above: Expected: 01/23/2023 , Expires: 03/25/2023 Start: 01-23-2023 End: 03-25-2023 Hemoglobin A1c in Blood [facility] Work Phone: Comment on above: Expected: 01/23/2023 , Expires: 03/25/2023 Start: 01-23-2023 End: 03-25-2023 Magnesium [Mass/volume] in Serum or Plasma [facility] Work Phone: Comment on above: Expected: 01/23/2023 , Expires: 03/25/2023 Start: 01-23-2023 End: 03-25-2023 Thyrotropin [Units/volume] in Serum or Plasma [facility] Work Phone: Comment on above: Expected: 01/23/2023 , Expires: 03/25/2023 Start: 01-23-2023 End: 03-25-2023 Thyroxine (T4) free [Mass/volume] in Serum or Plasma [facility] Work Phone: Comment on above: Expected: 01/23/2023 , Expires: 03/25/2023 Start: 07-28-2022 Lipid 1996 panel - S ruth or Plasma Lipid Screening [facility] Start: 07-28-2022 Lipid panel Lipid Screening [facility] Start: 07-28-2022 LIPID SCREEN LIPID SCREEN [facility] Start: 07-25-2022 End: 09-24-2022 CBC W Auto Differential panel - Blood CBC + DIFF Lab Routine Dyslipidemia Expected: 07/25/2022, Expires: 09/24/2022 [facility] Work Phone: Comment on above: Expected: 07/25/2022 , Expires: 09/24/2022 Start: 07-25-2022 End: 09-24-2022 Comprehensive metabolic 2000 panel - Serum or Plasma COMP METABOLIC PANEL Lab Routine Dyslipidemia Expected: 07/25/2022, Expires: 09/24/2022 [facility] Work Phone: Comment on above: Expected: 07/25/2022 , Expires: 09/24/2022 Start: 07-25-2022 End: 09-24-2022 Hemoglobin A1c in Blood HGB A1C Lab Routine Dyslipidemia Expected: 07/25/2022, Expires: 09/24/2022 [facility] Work Phone: Comment on above: Expected: 07/25/2022 , Expires: 09/24/2022 Start: 07-25-2022 End: 09-24-2022 Lipid 1996 panel - Serum or Plasma LIPID PANEL BASIC Lab Routine Dyslipidemia Expected: 07/25/2022, Expires: 09/24/2022 [facility] Work Phone: Comment on above: Expected: 07/25/2022 , Expires: 09/24/2022 Start: 07-25-2022 End: 09-24-2022 Thyrotropin [Units/volume] in Serum or Plasma TSH BLD Lab Routine Headaches due to old head injury Expected: 07/25/2022, Expires: 09/24/2022 [facility] Work Phone: Comment on above: Expected: 07/25/2022 , Expires: 09/24/2022 Start: 07-15-2022 End: 08-14-2023 Radex sacrum & coccyx minimum 2 views XR SACRUM/COCCYX 3V AP/LAT Radiology STAT Acute midline low back pain without sciatica Expected: 07/15/2022, Expires: 08/14/2023 [facility] Work Phone: Comment on above: Expected: 07/15/2022 , Expires: 08/14/2023 Start: 07-15-2022 End: 08-14-2023 Radex spine lumbosacral 2/3 views XR LUMBAR GENERAL 3V AP/LAT/L5-S1 Radiology STAT Acute midline low back pain without sciatica Expected: 07/15/2022, Expires: 08/14/2023 [facility] Work Phone: Comment on above: Expected: 07/15/2022 , Expires: 08/14/2023 Start: 05-27-2022 DEPRESSION ASSESSMENT DEPRESSION ASS ESSMENT [facility] Start: 01-25-2022 Influenza vaccination INFLUENZA (#1) [facility] Start: 05-27-2021 DEPRESSION ASSESSMENT DEPRESSION ASS ESSMENT [facility] Start: 01-25-2021 COVID-19 VACCINE (3 - Booster for Pfizer series) COVID-19 VACCINE (3 - Booster for Pfizer series) [facility] Start: 10-20-2020 COVID-19 VACCINE (3 - Booster for Pfizer series) COVID-19 VACCINE (3 - Booster for Pfizer series) [facility] Start: 10-20-2020 COVID-19 VACCINE (3 - Pfizer series) COVID-19 VACCINE (3 - Pfizer series) [facility] Start: 05-26-2019 Adult depression scr eening assessment DEPRESSION SCREENING [facility] Start: 07-28-2005 HIV SCREENING HIV SCREENING [facility] Start: 07-28-2005 HIV screening HIV Screening [facility] End: 11-18-2024 Echocardiography ECHO Cardiology Routine Palpitations 1 Occurrences starting 11/19/2023 until 11/18/2024 [facility] Comment on above: 1 Occurrences starti ng 11/19/2023 until 11/18/2024 End: 08-24-2023 Mri spinal canal lumbar w/o contrast material MRI LUMBAR SPINE WO IVCON Radiology Routine Radiculopathy of lumbar region Chronic midline low back pain with bilateral sciatica 1 Occurrences starting 07/25/2022 until 08/24/2023 [facility] Work Phone: Comment on above: 1 Occurrences starti ng 07/25/2022 until 08/24/2023 [facility] Immunizations Immunization Date Immunization Notes Care Provider Vincent alvarez 03-04-2023 influenza, seasonal, injectable Frieda GUILLEN Work Phone: [facility] Work Phone: 03-04-2023 influenza virus vaccine, unspecified formulation Saroj Raymond DO Work Phone: [facility] 02-19-2022 influenza, seasonal, injectable Saroj Raymond DO Work Phone: [facility] Work Phone: 02-19-2022 influenza virus vaccine, unspecified formulation Saroj Raymond DO Work Phone: [facility] 03-31-2018 influenza, seasonal, injectable Saroj Raymond DO Work Phone: [facility] Work Phone: 02-19-2017 influenza, injectabl e, quadrivalent, contains preservative Saroj Raymond DO Work Phone: [facility] 06-27-2016 tetanus toxoid, redu kelsey diphtheria toxoid, and acellular pertussis vaccine, adsorbed Saroj Raymond DO Work Phone: [facility] Work Phone: 12-28-2015 hepatitis B vaccine, adult dosage Saroj Raymond DO Work Phone: [facility] Work Phone: 09-30-2006 Meningococcal, MCV4, unspecified conjugate formulation(groups A, C, Y and W-135) Saroj Raymond DO Work Phone: [facility] Work Phone: 11-25-2003 diphtheria and tetan us toxoids, adsorbed for pediatric use Saroj Raymond DO Work Phone: [facility] Work Phone: 12-17-2001 hepatitis B vaccine, pediatric or pediatric/adolescent dosage Saroj Raymond DO Work Phone: [facility] Work Phone: 02-10-2001 hepatitis B vaccine, pediatric or pediatric/adolescent dosage Saroj Raymond DO Work Phone: [facility] Work Phone: 01-10-2001 hepatitis B vaccine, pediatric or pediatric/adolescent dosage Saroj Raymond DO Work Phone: [facility] Work Phone: 01-10-2001 measles, mumps and rubella virus vaccine Saroj Raymond DO Work Phone: [facility] Work Phone: 04-26-1998 influenza virus vaccine, whole virus Saroj Raymond DO Work Phone: [facility] Work Phone: 01-12-1993 diphtheria, tetanus toxoids and acellular pertussis vaccine Saroj Raymond DO Work Phone: [facility] Work Phone: 01-12-1993 poliovirus vaccine, inactivated Saroj Raymond DO Work Phone: [facility] Work Phone: 05-27-1992 Chicken Pox (disease) Saroj Raymond DO Work Phone: [facility] Work Phone: 04-26-1989 haemophilus influenz ae type b vaccine, HbOC conjugate Saroj Raymond DO Work Phone: [facility] Work Phone: 11-29-1988 measles, mumps and rubella virus vaccine Saroj Raymond DO Work Phone: [facility] Work Phone: 11-24-1988 diphtheria, tetanus toxoids and acellular pertussis vaccine Saroj Raymond DO Work Phone: [facility] Work Phone: 11-24-1988 poliovirus vaccine, inactivated Saroj Raymond DO Work Phone: [facility] Work Phone: 01-26-1988 diphtheria, tetanus toxoids and acellular pertussis vaccine Saroj Raymond DO Work Phone: [facility] Work Phone: 1987 diphtheria, tetanus toxoids and acellular pertussis vaccine Saroj Raymond DO Work Phone: [facility] Work Phone: 1987 poliovirus vaccine, inactivated Saroj Raymond DO Work Phone: [facility] Work Phone: 1985 diphtheria, tetanus toxoids and acellular pertussis vaccine Saroj Raymond DO Work Phone: [facility] Work Phone: 1985 poliovirus vaccine, inactivated Saroj Raymond DO Work Phone: [facility] Work Phone: Payers Date Payer Category Payer Private Health Insurance [employer] A ETNA CHOICE POS II [id number] 2019-Present [phone] [address] [place] [address] POS [id number] 2019 Private Health Insurance [id number] 2019 Private Health Insurance [id number] Social History Date Type Detail Facility Start: 09-06-2015 End: 07-15-2022 Tobacco smoking status NHIS Never smoked tobacco [facility] Work Phone: End: 05-27-2011 History of tobacco use Cigarette Smoker [facility] Work Phone: Start: 09-06-2015 End: 07-15-2022 Tobacco use and exposure User of smokeless tobacco [facility] Work Phone: History of tobacco use Chews Tobacco [facility] Work Phone: Start: 01-20-2021 End: 11-19-2023 Alcohol intake Current drinker of alcohol (finding) [facility] Start: 03-31-2020 End: 01-30-2022 History SDOH Alcohol Frequency 2 [facility] Start: 03-31-2020 End: 01-30-2022 History SDOH Alcohol Std Drinks 1 [facility] Start: 09-25-2014 History SDOH Alcohol Comment rare [facility] Start: 03-31-2020 End: 01-30-2022 History SDOH Social Connections Phone 4 [facility] Start: 03-31-2020 End: 01-30-2022 History SDOH Social Connections Get Together 3 [facility] Start: 03-31-2020 End: 01-30-2022 History SDOH Social Connections Living 8 [facility] Start: 03-31-2020 History SDOH Physical Activity DPW 5 [facility] Start: 03-31-2020 History SDOH Physical Activity MPS 6 [facility] Start: 03-31-2020 Education 17 [facility] Start: 09-06-2015 End: 07-15-2022 Tobacco Comment chews tobacco [facility] Start: 1985 Sex Assigned At Not on file [facility] Start: 01-17-2022 End: 01-27-2022 Exposure to SARS-CoV-2 (event) Not sure [facility] Work Phone: Start: 01-30-2022 End: 11-19-2023 History of Social function [facility] Start: 01-30-2022 End: 11-19-2023 Social connection and isolation panel [facility] Frequency of Social Gatherings with Friends and Family Not on file [facility] Work Phone: Do you belong to any clubs or organizations such as sikh groups, unions, fraternal or athletic groups, or school groups? Yes [facility] Are you now , , , , never or living with a partner? [facility] How often to you hav e a drink containing alcohol? Monthly or less [facility] How often do you hav e 6 or more drinks on 1 occasion? Never [facility] Do you feel stress - tense, restless, nervous, or anxious, or unable to sleep at night because your mind is troubled all the time - these days [OSQ] Only a little [facility] (I/We) worried wheth er (my/our) food would run out before (I/we) got money to buy more. Never true [facility] In the past 12 month s, was there a time when you were not able to pay the mortgage or rent on time? No [facility] Start: 04-11-2021 Sexual orientation Heterosexual (finding) [facility] Clinical Notes 12-11-2021 to 03-12-2024 Telephone Encounter - Angelia Lopez APRN.CNP - 03/12/2024 9:07 AM EDTTelephone Encounter - Angelia Lopez APRN.CNP - 03/12/2024 9:07 AM Saroj Stovall DO - 11/19/2023 11:05 AM EDT Note Date & Type Note Facility 03-12-2024 Telephone encounter Note The following approved medication requests have been transmitted electronically. Requested Prescriptions Signed Prescriptions Disp Refills lisdexamfetamine (VYVANSE) 70 mg capsule 30 capsule 0 Sig: Take 1 capsule by mouth once daily for 30 days. Authorizing Provider: ANGELIA LOPEZ dextroamphetamine-amphetamine (ADDERALL) 20 mg tablet 30 tablet 0 Sig: Take 1 tablet by mouth once daily for 30 days. In the afternoon as needed for focus/concentration Authorizing Provider: ANGELIA LOPEZ APRN.CNP PDMP website checked and validated. All prescriptions have been APPROPRIATELY filled. No suspicious activity was identified. 03/12/2024 by Angelia Lopez CNP. [facility] 03-12-2024 Miscellaneous Notes The following approved medication requests have been transmitted electronically. Requested Prescriptions Signed Prescriptions Disp Refills lisdexamfetamine (VYVANSE) 70 mg capsule 30 capsule 0 Sig: Take 1 capsule by mouth once daily for 30 days. Authorizing Provider: ANGELIA LOPEZ dextroamphetamine-amphetamine (ADDERALL) 20 mg tablet 30 tablet 0 Sig: Take 1 tablet by mouth once daily for 30 days. In the afternoon as needed for focus/concentration Authorizing Provider: ANGELIA LOPEZ APRN.CNP PDMP website checked and validated. All prescriptions have been APPROPRIATELY filled. No suspicious activity was identified. 03/12/2024 by Angelia Lopez CNP. Patient has been identified by name and date of : Patient phones for refill(s): Requested Prescriptions Pending Prescriptions Disp Refills lisdexamfetamine (VYVANSE) 70 mg capsule 30 capsule 0 Sig: Take 1 capsule by mouth once daily for 30 days. lisdexamfetamine (VYVANSE) 70 mg capsule 30 capsule 0 Sig: Take 1 capsule by mouth once daily for 30 days. lisdexamfetamine (VYVANSE) 70 mg capsule 30 capsule 0 Sig: Take 1 capsule by mouth once daily for 30 days. dextroamphetamine-amphetamine (ADDERALL) 20 mg tablet 30 tablet 0 Sig: Take 1 tablet by mouth once daily for 30 days. In the afternoon as needed for focus/concentration dextroamphetamine-amphetamine (ADDERALL) 20 mg tablet 90 tablet 0 Sig: Take 1 tablet by mouth once daily for 90 days. In the afternoon as needed for focus/concentration dextroamphetamine-amphetamine (ADDERALL) 20 mg tablet 30 tablet 0 Sig: Take 1 tablet by mouth once daily for 30 days. In the afternoon as needed for focus/concentration Date of last office visit in primary care: 11/19/2023 Date of next office visit in primary care: 04/17/2024 Please advise. Thank you. Loni Limon LPN. documented in this encounter [facility] 03-11-2024 Telephone encounter Note Patient has been identified by name and date of : Patient phones for refill(s): Requested Prescriptions Pending Prescriptions Disp Refills lisdexamfetamine (VYVANSE) 70 mg capsule 30 capsule 0 Sig: Take 1 capsule by mouth once daily for 30 days. lisdexamfetamine (VYVANSE) 70 mg capsule 30 capsule 0 Sig: Take 1 capsule by mouth once daily for 30 days. lisdexamfetamine (VYVANSE) 70 mg capsule 30 capsule 0 Sig: Take 1 capsule by mouth once daily for 30 days. dextroamphetamine-amphetamine (ADDERALL) 20 mg tablet 30 tablet 0 Sig: Take 1 tablet by mouth once daily for 30 days. In the afternoon as needed for focus/concentration dextroamphetamine-amphetamine (ADDERALL) 20 mg tablet 90 tablet 0 Sig: Take 1 tablet by mouth once daily for 90 days. In the afternoon as needed for focus/concentration dextroamphetamine-amphetamine (ADDERALL) 20 mg tablet 30 tablet 0 Sig: Take 1 tablet by mouth once daily for 30 days. In the afternoon as needed for focus/concentration Date of last office visit in primary care: 11/19/2023 Date of next office visit in primary care: 04/17/2024 Please advise. Thank you. Loni Limon LPN. [facility] 02-17-2024 Telephone encounter Note Pharmacy calls to report that patient also needs a refill on Adderall. Insurance only covers a 30 day prescription so 01/17/2024 prescription was filled for 30 days and patient now needs a new prescription. Pended 30 day per request. Rose Marie Leone RN [facility] 02-17-2024 Miscellaneous Notes Pharmacy calls to report that patient also needs a refill on Adderall. Insurance only covers a 30 day prescription so 01/17/2024 prescription was filled for 30 days and patient now needs a new prescription. Pended 30 day per request. Rose Marie Leone RN Prescription Refill Information The patient has been identified by name and date of : Yes Caregiver verified no other encounters exist for this prescription request: Yes Caregiver confirmed with patient/requestor that no other refills are due, in the near future, with this provider at this time: Yes The last office visit in the department: 11/19/23 Does the patient have a future office visit with this provider/department: Yes 04/17/24 Requested Prescriptions Pending Prescriptions Disp Refills lisdexamfetamine (VYVANSE) 70 mg capsule 30 capsule 0 Sig: Take 1 capsule by mouth once daily for 30 days. Cindi Conner RN February 17, 2024 4:21 PM documented in this encounter [facility] 02-17-2024 Telephone encounter Note Prescription Refill Information The patient has been identified by name and date of : Yes Caregiver verified no other encounters exist for this prescription request: Yes Caregiver confirmed with patient/requestor that no other refills are due, in the near future, with this provider at this time: Yes The last office visit in the department: 11/19/23 Does the patient have a future office visit with this provider/department: Yes 04/17/24 Requested Prescriptions Pending Prescriptions Disp Refills lisdexamfetamine (VYVANSE) 70 mg capsule 30 capsule 0 Sig: Take 1 capsule by mouth once daily for 30 days. Cindi Conner RN February 17, 2024 4:21 PM [facility] 01-17-2024 Telephone encounter Note Pt informed, verbalized understanding. Mimi Jerez MA [facility] 01-17-2024 Miscellaneous Notes Pt informed, verbalized understanding. Mimi Jerez MA Pts was asking if provider would be able to send in 3 months worth of refills at a time like she would do with the Vyvanse. The patient has been identified by name and date of : Yes Caregiver verified no other encounters exist for this prescription request: Yes Caregiver confirmed with patient/requestor that no other refills are due, in the near future, with this provider at this time: Yes The last office visit in the department: 11/19/2023 Does the patient have a future office visit with this provider/department: Yes 04/17/2024 Requested Prescriptions Pending Prescriptions Disp Refills dextroamphetamine-amphetamine (ADDERALL) 20 mg tablet 30 tablet 0 Sig: Take 1 tablet by mouth once daily for 30 days. In the afternoon as needed for focus/concentration Dulce Maria Chilel RN January 16, 2024 8:54 AM documented in this encounter [facility] 01-16-2024 Telephone encounter Note Pts was asking if provider would be able to send in 3 months worth of refills at a time like she would do with the Vyvanse. The patient has been identified by name and date of : Yes Caregiver verified no other encounters exist for this prescription request: Yes Caregiver confirmed with patient/requestor that no other refills are due, in the near future, with this provider at this time: Yes The last office visit in the department: 11/19/2023 Does the patient have a future office visit with this provider/department: Yes 04/17/2024 Requested Prescriptions Pending Prescriptions Disp Refills dextroamphetamine-amphetamine (ADDERALL) 20 mg tablet 30 tablet 0 Sig: Take 1 tablet by mouth once daily for 30 days. In the afternoon as needed for focus/concentration Dulce Maria Chilel RN January 16, 2024 8:54 AM [facility] 12-17-2023 Telephone encounter Note The following approved medication requests have been transmitted electronically. Requested Prescriptions Signed Prescriptions Disp Refills dextroamphetamine-amphetamine (ADDERALL) 20 mg tablet 30 tablet 0 Sig: Take 1 tablet by mouth once daily for 30 days. In the afternoon as needed for focus/concentration Authorizing Provider: ANGELIA LOPEZ APRN.CNP PDMP website checked and validated. All prescriptions have been APPROPRIATELY filled. No suspicious activity was identified. 12/17/2023 by Angelia Lopez CNP. [facility] 12-17-2023 Miscellaneous Notes The following approved medication requests have been transmitted electronically. Requested Prescriptions Signed Prescriptions Disp Refills dextroamphetamine-amphetamine (ADDERALL) 20 mg tablet 30 tablet 0 Sig: Take 1 tablet by mouth once daily for 30 days. In the afternoon as needed for focus/concentration Authorizing Provider: ANGELIA LOPEZ APRN.CNP PDMP website checked and validated. All prescriptions have been APPROPRIATELY filled. No suspicious activity was identified. 12/17/2023 by Angelia Lopez CNP. Prescription Refill Information The patient has been identified by name and date of : Yes Caregiver verified no other encounters exist for this prescription request: Yes Caregiver confirmed with patient/requestor that no other refills are due, in the near future, with this provider at this time: Yes The last office visit in the department: 11/19/2023 Does the patient have a future office visit with this provider/department: Yes 04/17/2024 Requested Prescriptions Pending Prescriptions Disp Refills dextroamphetamine-amphetamine (ADDERALL) 20 mg tablet 30 tablet 0 Sig: Take 1 tablet by mouth once daily for 30 days. In the afternoon as needed for focus/concentration Kim Long December 17, 2023 9:30 AM documented in this encounter [facility] 12-17-2023 Telephone encounter Note Prescription Refill Information The patient has been identified by name and date of : Yes Caregiver verified no other encounters exist for this prescription request: Yes Caregiver confirmed with patient/requestor that no other refills are due, in the near future, with this provider at this time: Yes The last office visit in the department: 11/19/2023 Does the patient have a future office visit with this provider/department: Yes 04/17/2024 Requested Prescriptions Pending Prescriptions Disp Refills dextroamphetamine-amphetamine (ADDERALL) 20 mg tablet 30 tablet 0 Sig: Take 1 tablet by mouth once daily for 30 days. In the afternoon as needed for focus/concentration Kim Long December 17, 2023 9:30 AM [facility] 11-25-2023 Telephone encounter Note [facility] Scheduling office calling requesting copy of ECHO order to be faxed to [phone]. Printed and faxed as requested. [facility] 11-25-2023 Miscellaneous Notes [facility] Scheduling office calling requesting copy of ECHO order to be faxed to [phone]. Printed and faxed as requested. documented in this encounter [facility] 11-20-2023 Telephone encounter Note Phoned patient and given provider's message below with verbalized understanding. [facility] 11-20-2023 Miscellaneous Notes Phoned patient and given provider's message below with verbalized understanding. Please let patient know that thyroid labs are normal Saroj Raymond DO Please see thyroid labs- Scan on 11/19/2023 2:15 PM by ProviderLionel PA-C: Miscellaneous Lab documented in this encounter [facility] 11-19-2023 Telephone encounter Note Please let patient know that thyroid labs are normal Saroj Raymond DO [facility] 11-19-2023 Telephone encounter Note Please see thyroid labs- Scan on 11/19/2023 2:15 PM by ProviderLionel PA-C: Miscellaneous Lab [facility] 11-19-2023 Note HNO ID: [id number] Author: SAROJ RAYMOND DO Service: ? Author Type: Physician Type: Progress Notes Filed: 11/19/2023 12:22 Note Text: CC: Marian Hamilton is a 38 year old male who presents to the office for follow up HPI: Colonoscopy upcoming mid November with Dr. Aguayo Sales Marketing Director due to having some blood in his stools. His GERD has been well controlled with Aciphex without any new changes, no nausea or vomiting. Was in the EMERGENCY DEPARTMENT about 1 month ago for palpitations and chest pain at [facility]. Work up for cardiac symptoms was negative. Labs were all normal. EKG was stable. Thought maybe symptoms were related to Celsius energy drinks which he cut out from his diet. He does still have some occasional symptoms, not daily. Tries to limit caffeine intake in general as well. No syncope symptoms. Does have a fmhx of thyroid disease in mother. He is also wondering if it could be anxiety symptoms as well ADD, long standing, taking Vyvanse as prescribed. Sometimes feels that he is unsure if this medication is even effective/helpful enough. Definitely seems to wear off early as well. 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 [START ON 12/17/2023] lisdexamfetamine (VYVANSE) 70 mg capsule Take 1 capsule by mouth once daily for 30 days. Do not start before December 17, 2023. [START ON 01/15/2024] lisdexamfetamine (VYVANSE) 70 mg capsule Take 1 capsule by mouth once daily for 30 days. Do not start before January 15, 2024. RABEprazole (ACIPHEX) 20 mg tablet Take 1 tablet by mouth once daily. SUMAtriptan (IMITREX) 100 mg tablet Take 1 tablet (100 mg) by mouth as needed. take at onset of migraine, May repeat in 1 hour if needed. limit 2 doses in 24 hours. dextroamphetamine-amphetamine (ADDERALL) 20 mg tablet Take 1 tablet by mouth once daily for 30 days. In the afternoon as needed for focus/concentration tiZANidine (ZANAFLEX) 4 mg tablet Take 1 tablet by mouth every 8 hours as needed (muscle spasm low back). No current facility-administered medications for this visit. ALLERGIES Allergen Reactions Amoxicillin Karl Cesar Ds [Sulfamet* Hives Social History Tobacco Use Smoking status: Never Smokeless tobacco: Current Types: Chew Tobacco comments: chews tobacco Substance Use Topics Alcohol use: Yes Comment: rare ROS: See HPI PE: BP 124/80 Pulse 80 Temp (Src) 97.4 (Left Tympanic) Resp 12 Ht 5' 6.142 (1.68m) Wt 198 lb (89.8kg) BMI 31.82 kg/(m2). Gen: AANDOX3, NAD, non-toxic appearing HEENT: PERRLA, EOMs intact b/l, nares without drainage, pharynx without erythema, exudate, lesions, or drainage. Uvula midline. Neck: No LAD, no thyromegaly, no meningismus. CV: RRR, no murmur Lungs: CTA b/l, no wheezing Skin: No rashes, lesions, or wounds on exposed skin. No edema, normal pulses Abd: soft, NT, overweight PDMP website checked and validated. All prescriptions have been APPROPRIATELY filled. No suspicious activity was identified. 11/19/2023 by Saroj Raymond DO ASSESSMENT/PLAN: 1. Palpitations - ICD9: 785.1, ICD10: R00.2 (primary diagnosis) Labs as ordered ECHO as ordered Consider awake overnight monitor May be related to anxiety as well- consider adding on prn medication for anxiolytic as well as daily SSRI if symptoms worsen as d/w him today in office - THYROID STIMULATING HORMONE - T4 FREE/FREE THYROXINE - T3, FREE - ECHO - PERFLUTREN LIPID MICROSPHERES 1.1 MG/ML INJECTION IN NS 10 ML - SODIUM CHLORIDE 0.9 % (FLUSH) INJECTION SYRINGE 2. Attention deficit disorder (ADD) in adult - ICD9: 314.00, ICD10: F98.8 Continue vyvnase in AM, add on short acting adderall in afternoon. If symptoms still don't feel controlled then recommend changing AM medication to an alternative - LISDEXAMFETAMINE 70 MG CAPSULE - LISDEXAMFETAMINE 70 MG CAPSULE - LISDEXAMFETAMINE 70 MG CAPSULE - DEXTROAMPHETAMINE-AMPHETAMINE 20 MG TABLET 3. Gastroesophageal reflux disease without esophagitis - ICD9: 530.81, ICD10: K21.9 - Discussed lifestyle modifications including losing weight, limiting caffeine, no meals three hours before sleep, and head of bed elevation - RABEPRAZOLE 20 MG TABLET,DELAYED RELEASE 4. Headaches due to old head injury - ICD9: 339.20, 908.9, ICD10: G44.309, S09.90XS rx refilled Stable, chronic - SUMATRIPTAN 100 MG TABLET Saroj Raymond DO (more content not included)... [facility] 11-19-2023 History of Present illness Narrative CC: Marian Hamilton is a 38 year old male who presents to the office for follow up HPI: Colonoscopy upcoming mid November with Dr. Aguayo Sales Marketing Director due to having some blood in his stools. His GERD has been well controlled with Aciphex without any new changes, no nausea or vomiting. Was in the EMERGENCY DEPARTMENT about 1 month ago for palpitations and chest pain at [facility]. Work up for cardiac symptoms was negative. Labs were all normal. EKG was stable. Thought maybe symptoms were related to Celsius energy drinks which he cut out from his diet. He does still have some occasional symptoms, not daily. Tries to limit caffeine intake in general as well. No syncope symptoms. Does have a fmhx of thyroid disease in mother. He is also wondering if it could be anxiety symptoms as well ADD, long standing, taking Vyvanse as prescribed. Sometimes feels that he is unsure if this medication is even effective/helpful enough. Definitely seems to wear off early as well. 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 [START ON 12/17/2023] lisdexamfetamine (VYVANSE) 70 mg capsule Take 1 capsule by mouth once daily for 30 days. Do not start before December 17, 2023. [START ON 01/15/2024] lisdexamfetamine (VYVANSE) 70 mg capsule Take 1 capsule by mouth once daily for 30 days. Do not start before January 15, 2024. RABEprazole (ACIPHEX) 20 mg tablet Take 1 tablet by mouth once daily. SUMAtriptan (IMITREX) 100 mg tablet Take 1 tablet (100 mg) by mouth as needed. take at onset of migraine, May repeat in 1 hour if needed. limit 2 doses in 24 hours. dextroamphetamine-amphetamine (ADDERALL) 20 mg tablet Take 1 tablet by mouth once daily for 30 days. In the afternoon as needed for focus/concentration tiZANidine (ZANAFLEX) 4 mg tablet Take 1 tablet by mouth every 8 hours as needed (muscle spasm low back). No current facility-administered medications for this visit. ALLERGIES Allergen Reactions Amoxicillin Hives Septra Ds [Sulfamet* Hives Social History Tobacco Use Smoking status: Never Smokeless tobacco: Current Types: Chew Tobacco comments: chews tobacco Substance Use Topics Alcohol use: Yes Comment: rare ROS: See HPI PE: BP 124/80 Pulse 80 Temp (Src) 97.4 (Left Tympanic) Resp 12 Ht 5' 6.142 (1.68m) Wt 198 lb (89.8kg) BMI 31.82 kg/(m^2). Gen: A&OX3, NAD, non-toxic appearing HEENT: PERRLA, EOMs intact b/l, nares without drainage, pharynx without erythema, exudate, lesions, or drainage. Uvula midline. Neck: No LAD, no thyromegaly, no meningismus. CV: RRR, no murmur Lungs: CTA b/l, no wheezing Skin: No rashes, lesions, or wounds on exposed skin. No edema, normal pulses Abd: soft, NT, overweight PDMP website checked and validated. All prescriptions have been APPROPRIATELY filled. No suspicious activity was identified. 11/19/2023 by Saroj Raymond DO ASSESSMENT/PLAN: 1. Palpitations - ICD9: 785.1, ICD10: R00.2 (primary diagnosis) Labs as ordered ECHO as ordered Consider awake overnight monitor May be related to anxiety as well- consider adding on prn medication for anxiolytic as well as daily SSRI if symptoms worsen as d/w him today in office - THYROID STIMULATING HORMONE - T4 FREE/FREE THYROXINE - T3, FREE - ECHO - PERFLUTREN LIPID MICROSPHERES 1.1 MG/ML INJECTION IN NS 10 ML - SODIUM CHLORIDE 0.9 % (FLUSH) INJECTION SYRINGE 2. Attention deficit disorder (ADD) in adult - ICD9: 314.00, ICD10: F98.8 Continue vyvnase in AM, add on short acting adderall in afternoon. If symptoms still don't feel controlled then recommend changing AM medication to an alternative - LISDEXAMFETAMINE 70 MG CAPSULE - LISDEXAMFETAMINE 70 MG CAPSULE - LISDEXAMFETAMINE 70 MG CAPSULE - DEXTROAMPHETAMINE-AMPHETAMINE 20 MG TABLET 3. Gastroesophageal reflux disease without esophagitis - ICD9: 530.81, ICD10: K21.9 - Discussed lifestyle modifications including losing weight, limiting caffeine, no meals three hours before sleep, and head of bed elevation - RABEPRAZOLE 20 MG TABLET,DELAYED RELEASE 4. Headaches due to old head injury - ICD9: 339.20, 908.9, ICD10: G44.309, S09.90XS rx refilled Stable, chronic - SUMATRIPTAN 100 MG TABLET Saroj Raymond DO Return if no improvement. Follow up with Saroj Raymond DO. To ER if develops chest pain, shortness of breath. Discussed risks, benefits, alternatives, and potential side effects of medications. Patient/Guardian expressed understanding and agreed with the plan. See patient instructions. Saroj Raymond DO [address] [place] [address] documented in this encounter [facility] 10-17-2023 Telephone encounter Note PDMP website checked and validated. All prescriptions have been APPROPRIATELY filled. No suspicious activity was identified. 10/17/2023 by Patti Rivas APRN.CNP The following approved medication requests have been transmitted electronically. Requested Prescriptions Signed Prescriptions Disp Refills lisdexamfetamine (VYVANSE) 70 mg capsule 30 capsule 0 Sig: Take 1 capsule by mouth once daily for 30 days. Authorizing Provider: PATTI RIVAS APRN.CNP [facility] 10-17-2023 Miscellaneous Notes PDMP website checked and validated. All prescriptions have been APPROPRIATELY filled. No suspicious activity was identified. 10/17/2023 by Patti Rivas APRN.CNP The following approved medication requests have been transmitted electronically. Requested Prescriptions Signed Prescriptions Disp Refills lisdexamfetamine (VYVANSE) 70 mg capsule 30 capsule 0 Sig: Take 1 capsule by mouth once daily for 30 days. Authorizing Provider: PATTI RIVAS APRN.CNP Patient has been identified by name and date of : Patient phones for refill(s): Requested Prescriptions Pending Prescriptions Disp Refills lisdexamfetamine (VYVANSE) 70 mg capsule 30 capsule 0 Sig: Take 1 capsule by mouth once daily for 30 days. Date of last office visit in primary care: 06/05/2023 Date of next office visit in primary care: 11/19/2023 Please advise. Thank you. Ana Lorenzo RN. documented in this encounter [facility] 10-14-2023 Telephone encounter Note Patient has been identified by name and date of : Patient phones for refill(s): Requested Prescriptions Pending Prescriptions Disp Refills lisdexamfetamine (VYVANSE) 70 mg capsule 30 capsule 0 Sig: Take 1 capsule by mouth once daily for 30 days. Date of last office visit in primary care: 06/05/2023 Date of next office visit in primary care: 11/19/2023 Please advise. Thank you. Ana Lorenzo RN. [facility] 09-09-2023 Miscellaneous Notes Patient has been identified by name and date of : Patient phones for refill(s): Requested Prescriptions Pending Prescriptions Disp Refills RABEprazole (ACIPHEX) 20 mg tablet 90 tablet 1 Sig: Take 1 tablet by mouth once daily. Date of last office visit in primary care: 06/05/2023 Date of next office visit in primary care: 11/19/2023 Please advise. Thank you. Ana Lorenzo RN. documented in this encounter [facility] 07-16-2023 Instructions Frieda Heredia, WILMER - 07/16/2023 7:24 PM EST [facility] PATIENT INFO INFLUENZA INTRODUCTION Influenza (commonly called the flu) is a highly contagious illness that can occur in children or adults of any age. It occurs more often in the winter months because people spend more time in close contact with one another. The flu is spread easily from [id number]-[id number] by coughing, sneezing, or touching surfaces. Every year, complications of the flu require more than 200,000 people in the [place] to be hospitalized. Serious illness is more likely in the very young, older adults, women, and people who have certain health problems such as asthma or other forms of lung disease. There have been several widespread flu outbreaks (called pandemics), which led to the deaths of many people worldwide. These outbreaks occurred when new strains of influenza viruses formed (often from pigs or birds) and humans became infected because they had no immunity to these viruses. FLU SYMPTOMS Symptoms of seasonal flu can vary from person to person, but usually include: Fever (temperature higher than 100 F or 37.8 C) Headache and muscle aches Fatigue Cough and sore throat may also be present People with the flu usually have a fever for two to five days. This is different than fever caused by other upper respiratory viruses, which usually resolve after 24 to 48 hours. Some people have cold-like symptoms (runny nose, sore throat) during the flu while others have fever and muscle aches. Flu symptoms usually improve over two to five days, although the illness may last for a week or more. Weakness and fatigue may persist for several weeks Flu complications -- Complications of influenza occur in some people; pneumonia is the most common complication. Pneumonia is a serious infection of the lungs, and is more likely to occur in people over the age of 65, people who live in curriculum specialist care facilities (nursing homes), and those with other illnesses such as diabetes or conditions affecting the heart or lungs. FLU DIAGNOSIS Influenza is usually diagnosed based on symptoms (fever, cough and muscle aches). Lab testing for influenza is performed in certain cases, such as during a new influenza outbreak in a community. FLU TREATMENT When to seek help -- Most people with the flu recover within one to two weeks without treatment. However, serious complications of the flu can occur. Call your doctor or nurse immediately if: You feel short of breath or have trouble breathing You have pain or pressure in your chest or stomach You have signs of being dehydrated, such as dizziness when standing or not passing urine You feel confused You cannot stop vomiting or you cannot drink enough fluids There are several groups of people who are at increased risk for flu complications. These include women, young children (<5 years of age, and especially <2 years of age), people ?65 years of age, and people with certain diseases such as chronic lung disease (such as asthma), heart disease, diabetes, immunosuppressing conditions (such as HIV infection or transplantation), and some other diseases. If you or your child has flu symptoms and is at increased risk of flu complications, you should call your healthcare provider. Treat symptoms -- Treating the symptoms of influenza can help you to feel better, but will not make the flu go away faster. Rest until the flu is fully resolved, especially if the illness has been severe Fluids -- Drink enough fluids so that you do not become dehydrated. One way to duct layer if you are drinking enough is to look at the color of your urine. Normally, urine should be light yellow to nearly colorless. If you are drinking enough, you should pass urine every three to five hours. Acetaminophen (such as Tylenol and other brands) can relieve fever, headache, and muscle aches. Aspirin, and medicines that include aspirin (eg, bismuth subsalicylate; PeptoBismol), are not recommended for children under 18 because aspirin can lead to a serious disease called Orlin syndrome. Cough medicines are not usually helpful; cough usually resolves without treatment. We do not recommend cough or cold medicine for children under age six years. Antiviral treatment -- Antiviral medicines can be used to treat or prevent influenza. When used as a treatment, the medicine does not eliminate flu symptoms, although it can reduce the severity and duration of symptoms by about one day. Not every person with influenza needs an antiviral medicine; the decision is based upon your risk of developing complications of influenza. Antiviral treatment is most effective for seasonal influenza when it is taken within the first 48 hours of flu symptoms. Side effects -- Zanamivir and oseltamivir can cause mild side effects, including nausea and vomiting; zanamivir, which is inhaled, can cause difficulty breathing in some cases. Most people are able to continue the medicine despite the side effects. Antibiotics -- Antibiotics are NOT useful for treating viral illnesses such as influenza. Antibiotics should only used if there is a bacterial complication of the flu such as bacterial pneumonia, ear infection, or sinusitis. Antibiotics can cause side effects and lead to development of antibiotic resistance. documented in this encounter [facility] 07-16-2023 Note HNO ID: [id number] Author: FRIEDA HEREDIA PA Service: ? Author Type: Physician Machine Folder Type: Progress Notes Filed: 07/16/2023 19:29 Note Text: This note was created using [employer]. Subjective Marian Hamilton is a 37 year old male. HPI 37-year-old male presents for fever, cough and congestion x 2 days. Patient states on Saturday he started getting fever, cough and congestion. He has been taking ibuprofen which has been keeping his fever down. He states that he has a dry cough that is persistent. He states he gets some pain in the chest with coughing. No chest pain at rest. No shortness of breath. He states he has had a scratchy throat. No vomiting or diarrhea. He does not have COPD. Reports asthma as a kid, not on any inhalers. 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 PAST MEDICAL HISTORY Diagnosis Date ADD (attention deficit disorder) diagnosed as a child GERD (gastroesophageal reflux disease) Hypercholesteremia Knee pain, bilateral Traumatic brain injury (HCC) 2011 [facility] I[facility]; Residual headache, hearing loss, vision dominguez PAST SURGICAL HISTORY Procedure Laterality Date VASECTOMY UNI/BI SPX W/POSTOP SEMEN EXAMS ALLERGIES Amoxicillin and Septra Ds [Sulfamethoxazole-Trimethoprim] MEDICATIONS [START ON 07/31/2023] lisdexamfetamine (VYVANSE) 70 mg capsule Take 1 capsule by mouth once daily for 30 days. Do not start before July 31, 2023. lisdexamfetamine (VYVANSE) 70 mg capsule Take 1 capsule by mouth once daily for 30 days. Do not start before July 04, 2023. RABEprazole (ACIPHEX) 20 mg tablet Take 1 tablet by mouth once daily. SUMAtriptan (IMITREX) 100 mg tablet Take 1 tablet by mouth as needed. take at onset of migraine, May repeat in 1 hour if needed. limit 2 doses in 24 hours. tiZANidine (ZANAFLEX) 4 mg tablet Take 1 tablet by mouth every 8 hours as needed (muscle spasm low back). lisdexamfetamine (VYVANSE) 70 mg capsule Take 1 capsule by mouth once daily for 30 days. FAMILY HISTORY Problem Relation Age of Onset Diabetes Maternal Grandfather Heart Maternal Grandmother MT, CHF other (lupus) Maternal Grandmother Alzheimer's Disease Paternal Grandfather dementia Heart Paternal Grandfather Kidney Disease Paternal Grandfather other (healthy) Son gerd other (healthy) Daughter Social History Tobacco Use Smoking status: Never Smokeless tobacco: Current Types: Chew Tobacco comments: chews tobacco Substance Use Topics Alcohol use: Yes Comment: rare Review of Systems Constitutional: Positive for chills, fatigue and fever. HENT: Positive for congestion and sore throat. Respiratory: Positive for cough. Negative for shortness of breath. Cardiovascular: Negative for chest pain. Gastrointestinal: Negative for diarrhea and vomiting. Objective BP 128/80 Pulse 106 Temp 37.6 ?C (99.7 ?F) (Tympanic) Resp 18 Wt 90.8 kg (200 lb 3.2 oz) SpO2 95% BMI 31.42 kg/m? Physical Exam Vitals and nursing note reviewed. Constitutional: General: He is not in acute distress. Appearance: Normal appearance. He is not toxic-appearing. HENT: Right Ear: Tympanic membrane and ear canal normal. Left Ear: Tympanic membrane and ear canal normal. Nose: Congestion present. Mouth/Throat: Mouth: Mucous membranes are moist. Pharynx: No oropharyngeal exudate or posterior oropharyngeal erythema. Eyes: Conjunctiva/sclera: Conjunctivae normal. Cardiovascular: Rate and Rhythm: Normal rate and regular rhythm. Pulmonary: Effort: Pulmonary effort is normal. Breath sounds: Normal breath sounds. No wheezing, rhonchi or rales. Comments: + Persistent dry cough, lungs clear Skin: General: Skin is warm and dry. Neurological: Mental Status: He is alert. Assessment and Plan ASSESSMENT/PLAN: 1. Influenza A - ICD9: 487.1, ICD10: J10.1 (primary diagnosis) -Rx for Tamiflu. No history of kidney issues. -Continue Tylenol, Motrin, fluids, rest 2. URI, acute - ICD9: 465.9, ICD10: J06.9 - Discussed viral etiology and rationale for treatment. - Symptomatic treatment with prn analgesia - Supportive care with fluids and rest - INFLUENZA AANDB MOLECULAR (POC)-positive for influenza A Diagnosis and treatment plan were discussed and questions were answered to the patient's satisfaction. Pt acknowledged understanding of concepts and follow up plan. Specific signs and symptoms that would indicate the need for higher level of care were discussed in detail warranting prompt ER evaluation. WILMER [facility] 07-16-2023 History of Present illness Narrative This note was created using [employer]. Subjective Marian Hamilton is a 37 year old male. HPI 37-year-old male presents for fever, cough and congestion x 2 days. Patient states on Saturday he started getting fever, cough and congestion. He has been taking ibuprofen which has been keeping his fever down. He states that he has a dry cough that is persistent. He states he gets some pain in the chest with coughing. No chest pain at rest. No shortness of breath. He states he has had a scratchy throat. No vomiting or diarrhea. He does not have COPD. Reports asthma as a kid, not on any inhalers. 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 PAST MEDICAL HISTORY Diagnosis Date ADD (attention deficit disorder) diagnosed as a child GERD (gastroesophageal reflux disease) Hypercholesteremia Knee pain, bilateral Traumatic brain injury (HCC) 2011 [facility] I[facility]; Residual headache, hearing loss, vision dominguez PAST SURGICAL HISTORY Procedure Laterality Date VASECTOMY UNI/BI SPX W/POSTOP SEMEN EXAMS ALLERGIES Amoxicillin and Septra Ds [Sulfamethoxazole-Trimethoprim] MEDICATIONS [START ON 07/31/2023] lisdexamfetamine (VYVANSE) 70 mg capsule Take 1 capsule by mouth once daily for 30 days. Do not start before July 31, 2023. lisdexamfetamine (VYVANSE) 70 mg capsule Take 1 capsule by mouth once daily for 30 days. Do not start before July 04, 2023. RABEprazole (ACIPHEX) 20 mg tablet Take 1 tablet by mouth once daily. SUMAtriptan (IMITREX) 100 mg tablet Take 1 tablet by mouth as needed. take at onset of migraine, May repeat in 1 hour if needed. limit 2 doses in 24 hours. tiZANidine (ZANAFLEX) 4 mg tablet Take 1 tablet by mouth every 8 hours as needed (muscle spasm low back). lisdexamfetamine (VYVANSE) 70 mg capsule Take 1 capsule by mouth once daily for 30 days. FAMILY HISTORY Problem Relation Age of Onset Diabetes Maternal Grandfather Heart Maternal Grandmother MT, CHF other (lupus) Maternal Grandmother Alzheimer's Disease Paternal Grandfather dementia Heart Paternal Grandfather Kidney Disease Paternal Grandfather other (healthy) Son gerd other (healthy) Daughter Social History Tobacco Use Smoking status: Never Smokeless tobacco: Current Types: Chew Tobacco comments: chews tobacco Substance Use Topics Alcohol use: Yes Comment: rare Review of Systems Constitutional: Positive for chills, fatigue and fever. HENT: Positive for congestion and sore throat. Respiratory: Positive for cough. Negative for shortness of breath. Cardiovascular: Negative for chest pain. Gastrointestinal: Negative for diarrhea and vomiting. Objective BP 128/80 Pulse 106 Temp 37.6 C (99.7 F) (Tympanic) Resp 18 Wt 90.8 kg (200 lb 3.2 oz) SpO2 95% BMI 31.42 kg/m Physical Exam Vitals and nursing note reviewed. Constitutional: General: He is not in acute distress. Appearance: Normal appearance. He is not toxic-appearing. HENT: Right Ear: Tympanic membrane and ear canal normal. Left Ear: Tympanic membrane and ear canal normal. Nose: Congestion present. Mouth/Throat: Mouth: Mucous membranes are moist. Pharynx: No oropharyngeal exudate or posterior oropharyngeal erythema. Eyes: Conjunctiva/sclera: Conjunctivae normal. Cardiovascular: Rate and Rhythm: Normal rate and regular rhythm. Pulmonary: Effort: Pulmonary effort is normal. Breath sounds: Normal breath sounds. No wheezing, rhonchi or rales. Comments: + Persistent dry cough, lungs clear Skin: General: Skin is warm and dry. Neurological: Mental Status: He is alert. Assessment and Plan ASSESSMENT/PLAN: 1. Influenza A - ICD9: 487.1, ICD10: J10.1 (primary diagnosis) -Rx for Tamiflu. No history of kidney issues. -Continue Tylenol, Motrin, fluids, rest 2. URI, acute - ICD9: 465.9, ICD10: J06.9 - Discussed viral etiology and rationale for treatment. - Symptomatic treatment with prn analgesia - Supportive care with fluids and rest - INFLUENZA A&B MOLECULAR (POC)-positive for influenza A Diagnosis and treatment plan were discussed and questions were answered to the patient's satisfaction. Pt acknowledged understanding of concepts and follow up plan. Specific signs and symptoms that would indicate the need for higher level of care were discussed in detail warranting prompt ER evaluation. WILMER Hackett documented in this encounter [facility] 06-05-2023 Note HNO ID: [id number] Author: SAROJ RAYMOND, DO Service: ? Author Type: Physician Type: Progress Notes Filed: 06/05/2023 09:35 Note Text: CC: Marian Hamilton is a 37 year old male who presents to the office for medication followu p HPI: ADD, long standing, taking Vyvanse 57 mg a day, notices when doesn't take a dose of his medication that he is more depressed that day, doesn't have depression days he takes the medication. Symptoms have been well controlled overall, no SE with medication. Other medications such as adderall in the past caused CARNEY and jitteriness. NO SE with Vyvanse GERD, stable, only rare flare ups in middle of the night that wakes up coughing, mostly when eating spicy or red sauce foods for supper. Use of aciphex daily with benefit PAST MEDICAL HISTORY Diagnosis Date ADD (attention deficit disorder) diagnosed as a child GERD (gastroesophageal reflux disease) Hypercholesteremia Knee pain, bilateral Traumatic brain injury (HCC) 2011 [facility] I[facility]; Residual headache, hearing loss, vision dominguez PAST SURGICAL HISTORY Procedure Laterality Date VASECTOMY UNI/BI SPX W/POSTOP SEMEN EXAMS Current Outpatient Medications Medication Sig RABEprazole (ACIPHEX) 20 mg tablet Take 1 tablet by mouth once daily. SUMAtriptan (IMITREX) 100 mg tablet Take 1 tablet by mouth as needed. take at onset of migraine, May repeat in 1 hour if needed. limit 2 doses in 24 hours. tiZANidine (ZANAFLEX) 4 mg tablet Take 1 tablet by mouth every 8 hours as needed (muscle spasm low back). [START ON 07/31/2023] lisdexamfetamine (VYVANSE) 70 mg capsule Take 1 capsule by mouth once daily for 30 days. Do not start before July 31, 2023. [START ON 07/04/2023] lisdexamfetamine (VYVANSE) 70 mg capsule Take 1 capsule by mouth once daily for 30 days. Do not start before July 04, 2023. lisdexamfetamine (VYVANSE) 70 mg capsule Take 1 capsule by mouth once daily for 30 days. No current facility-administered medications for this visit. ALLERGIES Allergen Reactions Amoxicillin Hives Septra Ds [Sulfamet* Hives Social History Tobacco Use Smoking status: Never Smokeless tobacco: Current Types: Chew Tobacco comments: chews tobacco Substance Use Topics Alcohol use: Yes Comment: rare ROS: See HPI PE: BP 118/84 Pulse 64 Temp (Src) 97.2 (Temporal) Resp 16 Wt 206 lb (93.4kg) Gen: AANDOX3, NAD, non-toxic appearing HEENT: PERRLA, EOMs intact b/l, nares without drainage, pharynx without erythema, exudate, lesions, or drainage. Uvula midline. Neck: No LAD, no thyromegaly, no meningismus. CV: RRR, no murmur Lungs: CTA b/l, no wheezing Skin: No rashes, lesions, or wounds on exposed skin. PDMP website checked and validated. All prescriptions have been APPROPRIATELY filled. No suspicious activity was identified. 06/05/2023 by Saroj Raymond DO ASSESSMENT/PLAN: 1. Attention deficit disorder (ADD) in adult - ICD9: 314.00, ICD10: F98.8 (primary diagnosis) Stable, rx refilled. Patient states that he will need prior authorization of medication - LISDEXAMFETAMINE 70 MG CAPSULE - LISDEXAMFETAMINE 70 MG CAPSULE - LISDEXAMFETAMINE 70 MG CAPSULE 2. Gastroesophageal reflux disease without esophagitis - ICD9: 530.81, ICD10: K21.9 - Discussed lifestyle modifications including losing weight, limiting caffeine, no meals three hours before sleep, and head of bed elevation - Continue treatment with Aciphex 20 mg a day Saroj Raymond DO Return if no improvement. Follow up with Saroj Raymond DO. To ER if develops chest pain, shortness of breath. Discussed risks, benefits, alternatives, and potential side effects of medications. Patient/Guardian expressed understanding and agreed with the plan. See patient instructions. Saroj Raymond DO [address] [place] [address] [facility] 05-06-2023 Miscellaneous Notes PDMP website checked and validated. All prescriptions have been APPROPRIATELY filled. No suspicious activity was identified. 05/06/2023 by Patti Rivas APRN.MACHINE FOLDER The following approved medication requests have been transmitted electronically. Requested Prescriptions Signed Prescriptions Disp Refills lisdexamfetamine (VYVANSE) 70 mg capsule 30 capsule 0 Sig: Take 1 capsule by mouth once daily for 30 days. Authorizing Provider: PATTI RIVAS APRN.MACHINE FOLDER Vanessa--01/23/23 Nov--06/05/23 Last refill--05/03/23 30 with 0 refills Last labs--02/28/23 documented in this encounter [facility] 05-06-2023 Miscellaneous Notes Vanessa--01/23/23 Nov--06/05/23 Last refill--02/04/23 90 with 1 refill Last labs--01/23/23 documented in this encounter [facility] 05-03-2023 Miscellaneous Notes PDMP website checked and validated. All prescriptions have been APPROPRIATELY filled. No suspicious activity was identified. 05/03/2023 by Patti Rivas APRN.CNP The following approved medication requests have been transmitted electronically. Requested Prescriptions Signed Prescriptions Disp Refills lisdexamfetamine (VYVANSE) 70 mg capsule 30 capsule 0 Sig: Take 1 capsule by mouth once daily for 30 days. Authorizing Provider: PATTI RIVAS APRN.CNP Patient has been identified by name and date of : Yes, Provider Raymond Date 05-03-23 Time 11:05 am Spouse phones for refill(s): Requested Prescriptions Pending Prescriptions Disp Refills lisdexamfetamine (VYVANSE) 70 mg capsule 30 capsule 0 Sig: Take 1 capsule by mouth once daily for 30 days. Date of last office visit in primary care: 01/23/2023 Date of next office visit in primary care: 06/05/2023 Last 2 Encounter Wt Readings: Date: Wt: 01/23/2023 91.6 kg (202 lb) 07/25/2022 94.3 kg (208 lb) Previous labs/tests for medication: Blood Pressure: BUN (mg/dL) Date Value 06/22/2021 14 Sodium (mmol/L) Date Value 06/22/2021 137 Last 1 Encounter BP Readings: Date: BP: 01/23/2023 104/70 Liver Function: ALT (U/L) Date Value 06/22/2021 31 AST (U/L) Date Value 06/22/2021 25 Please advise. Thank you. Jasson Enamorado RN. documented in this encounter [facility] 04-09-2023 Miscellaneous Notes Patient's calls and states that patient took his last dose of medication this morning. Patient has been identified by name and date of : Yes Requested Prescriptions Pending Prescriptions Disp Refills lisdexamfetamine (VYVANSE) 70 mg capsule 30 capsule 0 Sig: Take 1 capsule by mouth once daily for 30 days. RX INSTRUCTIONS: Patient aware RX will be sent to pharmacy. No need to notify patient. Patient last office visit: 01/23/23 Patient next office visit: 06/05/23 Hafsa Bolden MA documented in this encounter [facility] 03-05-2023 Miscellaneous Notes Patient notified and verbalized understanding Bee Pelaez Cma The following approved medication requests have been transmitted electronically. Requested Prescriptions Signed Prescriptions Disp Refills lisdexamfetamine (VYVANSE) 70 mg capsule 30 capsule 0 Sig: Take 1 capsule by mouth once daily for 30 days. Authorizing Provider: ANGELIA LOPEZ APRN.CNP PDMP website checked and validated. All prescriptions have been APPROPRIATELY filled. No suspicious activity was identified. 03/05/2023 by Angelia Lopez CNP. Images from the original note were not included. Please see pt mychart message- Marian Hamilton P [facility] My Chart Rx Pool (supporting Saroj Raymond DO) 9 hours ago (10:29 PM) DW Good evening, I just looked at my medication bottle, and I have 5 pills left of the Vyvanse 60mg. I am noticing a slight change in the way I feel with it, but I think maybe we should try 70mg. Thank you! RX pended for review. Last refilled 02/06/2023 #30 0 refills. Last office visit- 01/23/2023. Pt requesting increase in dosage. Mimi Jerez MA documented in this encounter [facility] 02-06-2023 Miscellaneous Notes PDMP website checked and validated. All prescriptions have been APPROPRIATELY filled. No suspicious activity was identified. 02/06/2023 by Patti Rivas APRN.CNP . The following approved medication requests have been transmitted electronically. Requested Prescriptions Signed Prescriptions Disp Refills lisdexamfetamine (VYVANSE) 60 mg capsule 30 capsule 0 Sig: Take 1 capsule by mouth once daily for 30 days. Authorizing Provider: PATTI RIVAS APRN.CNP Patient calling back asking to have rx sent to [facility] please. Pending rx to file. Please advise Patient has been identified by name and date of : Spouse phones for refill(s): Requested Prescriptions Pending Prescriptions Disp Refills lisdexamfetamine (VYVANSE) 60 mg capsule 30 capsule 0 Sig: Take 1 capsule by mouth once daily for 30 days. Date of last office visit in primary care: 01/23/2023, has appt 06/05/2023 Last 2 Encounter Wt Readings: Date: Wt: 01/23/2023 91.6 kg (202 lb) 07/25/2022 94.3 kg (208 lb) Previous labs/tests for medication: Not applicable Please advise. Thank you. Lor Laureano LPN Pts called in and reports [facility] in [place] is not able to get the Vyvanse 60 mgs in. states she is going to see if they can get to 50 mg and 10 mg in, if not she is going to have us send the medication to [facility] pharmacy. documented in this encounter [facility] 02-04-2023 Miscellaneous Notes Vanessa-01/23/23- Nov--06/05/23 Last refill--07/25/22 30 with 1 refill Last labs--01/23/23 documented in this encounter [facility] 01-25-2023 Miscellaneous Notes Pt. informed. Loni Limon LPN Please inform patient that his labs are all normal except he is in the prediabetes range with a1c at 5.7%. make sure he is cutting back on sugars and starches in his diet. Saroj Raymond DO documented in this encounter [facility] 01-23-2023 Note HNO ID: [id number] Author: Saroj Raymond DO Service: ? Author Type: Physician Type: Progress Notes Filed: 01/23/2023 11:28 AM Note Text: CC: Marian Hamilton is a 37 year old male who presents to the office for physical HPI: ADD, long standing, taking Vyvanse 50 mg a day, notices when doesn't take a dose of his medication that he is more depressed that day, doesn't have depression days he takes the medication. Also notices that doesn't feel this dose is helping his attention and focusing ability GERD, stable, only rare flare ups in middle of the night that wakes up coughing, mostly when eating spicy or red sauce foods for supper. Low back pain, much improved after PT PAST MEDICAL HISTORY Diagnosis Date ADD (attention deficit disorder) diagnosed as a child GERD (gastroesophageal reflux disease) Hypercholesteremia Knee pain, bilateral Traumatic brain injury (HCC) 2011 [facility]; Residual headache, hearing loss, vision dominguez PAST SURGICAL HISTORY Procedure Laterality Date VASECTOMY UNI/BI SPX W/POSTOP SEMEN EXAMS Social History: Social History Tobacco Use Smoking status: Never Smokeless tobacco: Current Types: Chew Tobacco comments: chews tobacco Substance Use Topics Alcohol use: Yes Comment: rare FAMILY HISTORY Problem Relation Age of Onset Diabetes Maternal Grandfather Heart Maternal Grandmother MT, CHF other (lupus) Maternal Grandmother Alzheimer's Disease Paternal Grandfather dementia Heart Paternal Grandfather Kidney Disease Paternal Grandfather other (healthy) Son gerd other (healthy) Daughter Current Outpatient prescriptions: lisdexamfetamine (VYVANSE) 50 mg capsule Take 1 capsule by mouth once daily for 30 days. lisdexamfetamine (VYVANSE) 50 mg capsule Take 1 capsule by mouth once daily for 30 days. Do not start before August 25, 2022. lisdexamfetamine (VYVANSE) 50 mg capsule Take 1 capsule by mouth once daily for 30 days. Do not start before July 28, 2022. SUMAtriptan (IMITREX) 100 mg tablet Take 1 tablet by mouth as needed. take at onset of migraine, May repeat in 1 hour if needed. limit 2 doses in 24 hours. tiZANidine (ZANAFLEX) 4 mg tablet Take 1 tablet by mouth every 8 hours as needed (muscle spasm low back). RABEprazole (ACIPHEX) 20 mg tablet Take 1 tablet by mouth once daily. Allergies: ALLERGIES Allergen Reactions Amoxicillin Hives Septra Ds [Sulfamet* Hives ROS: See HPI PE: 01/23/23 0908 BP: 104/70 Pulse: 68 Resp: 16 Temp: 36.1 ?C (97 ?F) TempSrc: Right Tympanic Weight: 91.6 kg (202 lb) Height: 170 cm (5' 6.93 ) Gen: AANDO, NAD, non-toxic appearing, Pleasant, cooperative HEENT: NT/AC, PERRLA, EOMs intact b/l, nares clear and patent b/l, pharynx without erythema, exudate or lesions. Uvula midline. MMM, EACs without erythema or debris. TMs pearly mcgarry with intact landmarks b/l. Neck: supple, No cervical LAD, no thyromegaly, no carotid bruits CV: RRR, normal S1 and S2, no murmurs, no gallops, no rubs, Pulses 2+ and symmetric in UE and LE b/l Lungs: normal respiratory effort, CTA b/l, no wheezing or rhonchi or rales Abd: soft, NT, ND, +BS, no hepatosplenomegaly MS: FROM all 4 extremities Neuro: CN II-XII intact b/l, strength 5/5 b/l UE and LE, DTRs 2/4 UE and LE, sensation intact. Skin: warm, dry, intact, No rashes or lesions on exposed skin. No edema, normal pulses ASSESSMENT/PLAN: 1. Well adult exam - ICD9: V70.0, ICD10: Z00.00 (primary diagnosis) - Counseled on healthy diet and regular exercise - Discussed need for and benefit of weight loss. BMI 31.70 kg/(m2) - TSH BLD - C-REACTIVE PROTEIN (CRP) - SED RATE WESTERGREN - HGB A1C - T4 FREE/FREE THYROX - MAGNESIUM BLD - VITAMIN B12 BLOOD 2. Gastroesophageal reflux disease without esophagitis - ICD9: 530.81, ICD10: K21.9 - Discussed lifestyle modifications including losing weight, limiting caffeine, no meals three hours before sleep, and head of bed elevation - Continue treatment with PPI - MAGNESIUM BLD - VITAMIN B12 BLOOD 3. Attention deficit disorder (ADD) in adult - ICD9: 314.00, ICD10: F98.8 Increase dose of Vyvanse to 60 mg a day, may need dose to increase to 70 mg a day if not enough/effective as d/w him today, he will update office in 1 month - LISDEXAMFETAMINE 60 MG CAPSULE 4. Chronic midline low back pain with bilateral sciatica - ICD9: 724.2, 724.3, 338.29, ICD10: M54.41, M54.42, G89.29 Chronic low back pain Improved/resolved with PHYSICAL THERAPY and exercise Saroj Raymond, DO To ER if develops chest pain, shortness of breath, or severe worsening of symptoms. Discussed risks, benefits, alternatives, and potential side effects of medications. Patient expressed understanding and agreed with the plan. Saroj Raymond, DO [address] [place] [address] [facility] 01-23-2023 History of Present illness Narrative CC: Marian Hamilton is a 37 year old male who presents to the office for physical HPI: ADD, long standing, taking Vyvanse 50 mg a day, notices when doesn't take a dose of his medication that he is more depressed that day, doesn't have depression days he takes the medication. Also notices that doesn't feel this dose is helping his attention and focusing ability GERD, stable, only rare flare ups in middle of the night that wakes up coughing, mostly when eating spicy or red sauce foods for supper. Low back pain, much improved after PT PAST MEDICAL HISTORY Diagnosis Date ADD (attention deficit disorder) diagnosed as a child GERD (gastroesophageal reflux disease) Hypercholesteremia Knee pain, bilateral Traumatic brain injury (HCC) [facility]; Residual headache, hearing loss, vision dominguez PAST SURGICAL HISTORY Procedure Laterality Date VASECTOMY UNI/BI SPX W/POSTOP SEMEN EXAMS Social History: Social History Tobacco Use Smoking status: Never Smokeless tobacco: Current Types: Chew Tobacco comments: chews tobacco Substance Use Topics Alcohol use: Yes Comment: rare FAMILY HISTORY Problem Relation Age of Onset Diabetes Maternal Grandfather Heart Maternal Grandmother MT, CHF other (lupus) Maternal Grandmother Alzheimer's Disease Paternal Grandfather dementia Heart Paternal Grandfather Kidney Disease Paternal Grandfather other (healthy) Son gerd other (healthy) Daughter Current Outpatient prescriptions: lisdexamfetamine (VYVANSE) 50 mg capsule Take 1 capsule by mouth once daily for 30 days. lisdexamfetamine (VYVANSE) 50 mg capsule Take 1 capsule by mouth once daily for 30 days. Do not start before August 25, 2022. lisdexamfetamine (VYVANSE) 50 mg capsule Take 1 capsule by mouth once daily for 30 days. Do not start before July 28, 2022. SUMAtriptan (IMITREX) 100 mg tablet Take 1 tablet by mouth as needed. take at onset of migraine, May repeat in 1 hour if needed. limit 2 doses in 24 hours. tiZANidine (ZANAFLEX) 4 mg tablet Take 1 tablet by mouth every 8 hours as needed (muscle spasm low back). RABEprazole (ACIPHEX) 20 mg tablet Take 1 tablet by mouth once daily. Allergies: ALLERGIES Allergen Reactions Amoxicillin Hives Septra Ds [Sulfamet* Hives ROS: See HPI PE: 01/23/23 0908 BP: 104/70 Pulse: 68 Resp: 16 Temp: 36.1 C (97 F) TempSrc: Right Tympanic Weight: 91.6 kg (202 lb) Height: 170 cm (5' 6.93 ) Gen: A&O, NAD, non-toxic appearing, Pleasant, cooperative HEENT: NT/AC, PERRLA, EOMs intact b/l, nares clear and patent b/l, pharynx without erythema, exudate or lesions. Uvula midline. MMM, EACs without erythema or debris. TMs pearly mcgarry with intact landmarks b/l. Neck: supple, No cervical LAD, no thyromegaly, no carotid bruits CV: RRR, normal S1 and S2, no murmurs, no gallops, no rubs, Pulses 2+ and symmetric in UE and LE b/l Lungs: normal respiratory effort, CTA b/l, no wheezing or rhonchi or rales Abd: soft, NT, ND, +BS, no hepatosplenomegaly MS: FROM all 4 extremities Neuro: CN II-XII intact b/l, strength 5/5 b/l UE and LE, DTRs 2/4 UE and LE, sensation intact. Skin: warm, dry, intact, No rashes or lesions on exposed skin. No edema, normal pulses ASSESSMENT/PLAN: 1. Well adult exam - ICD9: V70.0, ICD10: Z00.00 (primary diagnosis) - Counseled on healthy diet and regular exercise - Discussed need for and benefit of weight loss. BMI 31.70 kg/(m^2) - TSH BLD - C-REACTIVE PROTEIN (CRP) - SED RATE WESTERGREN - HGB A1C - T4 FREE/FREE THYROX - MAGNESIUM BLD - VITAMIN B12 BLOOD 2. Gastroesophageal reflux disease without esophagitis - ICD9: 530.81, ICD10: K21.9 - Discussed lifestyle modifications including losing weight, limiting caffeine, no meals three hours before sleep, and head of bed elevation - Continue treatment with PPI - MAGNESIUM BLD - VITAMIN B12 BLOOD 3. Attention deficit disorder (ADD) in adult - ICD9: 314.00, ICD10: F98.8 Increase dose of Vyvanse to 60 mg a day, may need dose to increase to 70 mg a day if not enough/effective as d/w him today, he will update office in 1 month - LISDEXAMFETAMINE 60 MG CAPSULE 4. Chronic midline low back pain with bilateral sciatica - ICD9: 724.2, 724.3, 338.29, ICD10: M54.41, M54.42, G89.29 Chronic low back pain Improved/resolved with PHYSICAL THERAPY and exercise Saroj Raymond DO To ER if develops chest pain, shortness of breath, or severe worsening of symptoms. Discussed risks, benefits, alternatives, and potential side effects of medications. Patient expressed understanding and agreed with the plan. Saroj Raymond DO [address] [place] [address] documented in this encounter [facility] 12-26-2022 Miscellaneous Notes PDMP website checked and validated. All prescriptions have been APPROPRIATELY filled. No suspicious activity was identified. 12/26/2022 by Patti Rivas APRN.CNP The following approved medication requests have been transmitted electronically. Requested Prescriptions Signed Prescriptions Disp Refills lisdexamfetamine (VYVANSE) 50 mg capsule 30 capsule 0 Sig: Take 1 capsule by mouth once daily for 30 days. Authorizing Provider: PATTI RIVAS APRN.CNP Last office visit: 07/25/22 F/u scheduled: 01/23/23 Last refilled on: Vyvanse #30 on 10/19/22 Shana Pacheco Ma documented in this encounter [facility] 08-06-2022 Miscellaneous Notes Pt notified via my chart. Images from the original note were not included. Prior authorization approved Payer: [facility] [phone] Your PA request has been approved. Additional information will be provided in the approval communication. (Message [id number]) Approval Details Authorized from August 06, 2022 to August 06, 2023 Electronic PA requested. Prior Authorization Documentation Prior authorization requested for the following medication: Medication: Vyvanse 50 mg Provider: [employer] Company Name: [employer] Phone number: [phone] Patient ID number: [id number] Pharmacy Name: [facility] Patient reports he has 5 pills left. Please notify him when medication has been prior authorized or not. documented in this encounter [facility] 07-25-2022 History of Present illness Narrative CC: Marian Hamilton is a 36 year old male who presents to the office for follow up HPI: ADD, stable, taking Vyvanse as prescribed, no SE with medication. GERD, stable, taking Aciphex and is well controlled. Has seen Dr. Aguayo [facility] in the past. HPL, had recent fasting labs in Jan/Feb 2022, will fax results to office Low back pain, off and on, but more persistent and increased in severity over the last 1 year. 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 No bowel or bladder changes. + significant low back pain and radiating into buttocks/posterior thighs. Worse with bending, twisting. Sometimes getting locked up and I can't move. Was recently treated with prednisone and flexeril. Doesn't feel the flexeril helped but does feel the prednisone helped. Diagnosed with kidney stone in Mar 2022, treated with medication, was seen in the EMERGENCY DEPARTMENT at [facility] PAST MEDICAL HISTORY Diagnosis Date ADD (attention deficit disorder) diagnosed as a child GERD (gastroesophageal reflux disease) Hypercholesteremia Knee pain, bilateral Traumatic brain injury (HCC) 2011 [facility] IED; Residual headache, hearing loss, vision dominguez PAST SURGICAL HISTORY Procedure Laterality Date VASECTOMY UNI/BI SPX W/POSTOP SEMEN EXAMS Current Outpatient Medications Medication Sig RABEprazole (ACIPHEX) 20 mg tablet Take 20 mg by mouth once daily. cyclobenzaprine (FLEXERIL) 10 mg tablet Take 1 tablet by mouth twice daily as needed for muscle spasm for up to 10 days. [START ON 09/24/2022] lisdexamfetamine (VYVANSE) 50 mg capsule Take 1 capsule by mouth once daily for 30 days. Do not start before September 24, 2022. [START ON 08/25/2022] lisdexamfetamine (VYVANSE) 50 mg capsule Take 1 capsule by mouth once daily for 30 days. Do not start before August 25, 2022. [START ON 07/28/2022] lisdexamfetamine (VYVANSE) 50 mg capsule Take 1 capsule by mouth once daily for 30 days. Do not start before July 28, 2022. SUMAtriptan (IMITREX) 100 mg tablet Take 1 tablet by mouth as needed. take at onset of migraine, May repeat in 1 hour if needed. limit 2 doses in 24 hours. No current facility-administered medications for this visit. ALLERGIES Allergen Reactions Amoxicillin Hives Septra Ds [Sulfamet* Hives Social History Tobacco Use Smoking status: Never Smokeless tobacco: Current Types: Chew Tobacco comments: chews tobacco Substance Use Topics Alcohol use: Yes Comment: rare ROS: See HPI PE: BP 118/80 Pulse 80 Temp (Src) 97 (Right Tympanic) Resp 16 Wt 208 lb (94.3kg) Gen: A&OX3, NAD, non-toxic appearing HEENT: PERRLA, EOMs intact b/l, nares without drainage, pharynx without erythema, exudate, lesions, or drainage. Uvula midline. Neck: No LAD, no thyromegaly, no meningismus. CV: RRR, no murmur Lungs: CTA b/l, no wheezing Skin: No rashes, lesions, or wounds on exposed skin. No flank pain Abd: overweight, NT, ND Reduced ROM lumbar spine Pain with SLR b/l DTR /4 b/l patellar, slightly diminished ASSESSMENT/PLAN: 1. Gastroesophageal reflux disease without esophagitis - ICD9: 530.81, ICD10: K21.9 (primary diagnosis) - Discussed lifestyle modifications including losing weight, limiting caffeine, no meals three hours before sleep, and head of bed elevation - Continue treatment with Aciphex QD - RABEPRAZOLE 20 MG TABLET,DELAYED RELEASE 2. Attention deficit disorder (ADD) in adult - ICD9: 314.00, ICD10: F98.8 3 one month rx refilled, stable, chronic. - LISDEXAMFETAMINE 50 MG CAPSULE - LISDEXAMFETAMINE 50 MG CAPSULE - LISDEXAMFETAMINE 50 MG CAPSULE 3. Headaches due to old head injury - ICD9: 339.20, 908.9, ICD10: G44.309, S09.90XS - rx refilled, stable - SUMATRIPTAN 100 MG TABLET - TSH BLD 4. Dyslipidemia - ICD9: 272.4, ICD10: E78.5 - to be determined upon return of lab results - Encouraged following a low fat, low cholesterol diet. - Discussed the benefits of regular aerobic exercise and weight loss. - COMP METABOLIC PANEL - CBC + DIFF - LIPID PANEL BASIC - HGB A1C 5. Ureterolithiasis - ICD9: 592.1, ICD10: N20.1 - stable, no new symptoms. 6. Radiculopathy of lumbar region - ICD9: 724.4, ICD10: M54.16 Sciatica - Ice for localized tenderness - Warm moist heat for 20 min three times a day - NSAIDS- see orders - Muscle relaxant- see orders - PT consult - Patient given instructions use of medications as ordered, intermittent rest, back care exercise program, improved posture, proper lifting techniques, and intermittent use of heat - Follow up in PRN or sooner if symptoms persist or worsen - MRI LUMBAR SPINE WO IVCON - PREDNISONE 20 MG TABLET - TIZANIDINE 4 MG TABLET 7. Chronic midline low back pain with bilateral sciatica - ICD9: 724.2, 724.3, 338.29, ICD10: M54.41, M54.42, G89.29 Symptoms consistent with herniated disc See above - MRI LUMBAR SPINE WO IVCON - PREDNISONE 20 MG TABLET - TIZANIDINE 4 MG TABLET Saroj Raymond DO PDMP website checked and validated. All prescriptions have been APPROPRIATELY filled. No suspicious activity was identified. 07/25/2022 by Saroj Raymond DO Return if no improvement. Follow up with Saroj Raymond DO. To ER if develops chest pain, shortness of breath Discussed risks, benefits, alternatives, and potential side effects of medications. Patient/Guardian expressed understanding and agreed with the plan. See patient instructions. Saroj Raymond DO [address] [place] [address] documented in this encounter [facility] 07-15-2022 History of Present illness Narrative Images from the original note were not included. Subjective Patient came in with complaints of lower back pain. Patient says when he is just sitting still in a chair it is like a 3 or 4. Patient says when he tries to get up or move that it significantly more painful. Patient denies any numbness or tingling going down his leg patient denies any difficulty urinating. Patient says there is some sharp pain that does shoot down the back of the leg and wraps around to the front of the thigh. 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 Said that he thinks he reinjured it after lifting a patient the other day and just seems to be getting worse since then. Patient has had this happen before and was seeing chiropractors for it. Patient did see a chiropractor this past Saturday with no relief. Patient's had to miss work. The history is provided by the patient. No language pathologist was used. Back Pain Review of Systems Constitutional: Negative. Musculoskeletal: Positive for back pain. Skin: Negative. Objective Physical Exam Constitutional: Appearance: Normal appearance. Pulmonary: Effort: Pulmonary effort is normal. Musculoskeletal: Arms: Comments: Patient says the pain is located in the area marked above. Nontender upon palpation. Neurological: Mental Status: He is alert. PAST MEDICAL HISTORY Diagnosis Date ADD (attention deficit disorder) diagnosed as a child GERD (gastroesophageal reflux disease) Hypercholesteremia Knee pain, bilateral Traumatic brain injury (HCC) 2011 [employer] [facility]; Residual headache, hearing loss, vision dominguez PAST SURGICAL HISTORY Procedure Laterality Date VASECTOMY UNI/BI SPX W/POSTOP SEMEN EXAMS ALLERGIES Amoxicillin and Septra Ds [Sulfamethoxazole-Trimethoprim] MEDICATIONS RABEprazole (ACIPHEX) 20 mg tablet Take 20 mg by mouth once daily. lisdexamfetamine (VYVANSE) 50 mg capsule Take 1 capsule by mouth once daily for 30 days. SUMAtriptan (IMITREX) 100 mg tablet Take 1 tablet by mouth as needed. take at onset of migraine, May repeat in 1 hour if needed. limit 2 doses in 24 hours. predniSONE (DELTASONE) 10 mg tablet Take 4 tabs daily for 3 days, then 2 tabs daily for 3 days, then 1 tab daily for 3 days with food. cyclobenzaprine (FLEXERIL) 10 mg tablet Take 1 tablet by mouth twice daily as needed for muscle spasm for up to 10 days. lidocaine (LIDODERM) 5 % Apply 1 Patch as directed once daily for 14 days. Remove old patch prior to placing new patch. Location: 12 hours on and 12 hours off lisdexamfetamine (VYVANSE) 50 mg capsule Take 1 capsule by mouth once daily for 30 days. lisdexamfetamine (VYVANSE) 50 mg capsule Take 1 capsule by mouth once daily for 30 days. Do not start before March 02, 2022. hydrOXYzine HCl (ATARAX) 25 mg tablet Take 1 tablet by mouth every 6 hours as needed for Itching/Rash. (Patient not taking: Reported on 07/15/2022) FAMILY HISTORY Problem Relation Age of Onset Diabetes Maternal Grandfather Heart Maternal Grandmother MT, CHF other (lupus) Maternal Grandmother Alzheimer's Disease Paternal Grandfather dementia Heart Paternal Grandfather Kidney Disease Paternal Grandfather other (healthy) Son gerd other (healthy) Daughter Social History Tobacco Use Smoking status: Never Smokeless tobacco: Current Types: Chew Tobacco comments: chews tobacco Substance Use Topics Alcohol use: Yes Comment: rare ASSESSMENT/PLAN: 1. Acute midline low back pain without sciatica - ICD9: 724.2, ICD10: M54.50 - PREDNISONE 10 MG TABLET - CYCLOBENZAPRINE 10 MG TABLET - LIDOCAINE 5 % TOPICAL PATCH - XR LUMBAR GENERAL 3V AP/LAT/L5-S1 - XR SACRUM/COCCYX 3V AP/LAT Patient struggled to get up out of the chair due to discomfort. At this time placed patient on prednisone Flexeril and lidocaine patient was educated about proper use of medication and supportive therapies. Patient was educated that Flexeril will make him drowsy should not go to work or drive on medication. Patient was also instructed to come in tomorrow and get x-rays of his lower back. Patient was also instructed to follow-up with PCP for possible further testing due to pain level and interfering with life. Patient is okay with this care plan if symptoms seem to be getting worse not better patient will follow-up sooner. Amelia Chicas APRN.JASMINA documented in this encounter [facility] 07-02-2022 Miscellaneous Notes Last office visit: 01/31/22 F/u scheduled: 07/25/22 Last refilled on: Vyvanse #30 on 05/08/22 Shana Pacheco Ma documented in this encounter [facility] 05-08-2022 Miscellaneous Notes PDMP website checked and validated. All prescriptions have been APPROPRIATELY filled. No suspicious activity was identified. 05/08/2022 by Saroj Raymond DO Last refill 04/02/22 Qty: 30 with 0 refills VANESSA [facility] [place] [facility] 01/31/22 NOV 07/25/22 Berkley Haskins LPN documented in this encounter [facility] 01-31-2022 History of Present illness Narrative This Team Access Model visit is a virtual encounter. It required patient-provider interaction for the medical decision making as documented below. Patient agrees to the visit: Yes Patient Location: [place] CC: Patient presents with: Medication Problem HPI Marian Hamilton is a 36 year old male who is contacted today for a virtual visit. This is an established patient of Dr. Saroj Raymond DO. Marian is a new patient to me today. Concerns today.. Needs refill on medication. Adult ADD- On vyvanse 50 mg daily. Has been on this regimen for years. This regimen works well. Tolerating well, no complaints. Headaches-- Takes imitrex prn. Reports needing 1x/week to 1x/month depending on stressors and time of year. This regimen works well. No other concerns or complaints. REVIEW OF SYSTEMS See HPI PAST MEDICAL HISTORY Diagnosis Date ADD (attention deficit disorder) diagnosed as a child GERD (gastroesophageal reflux disease) Hypercholesteremia Knee pain, bilateral Traumatic brain injury (HCC) 2011 [place] I[place]; Residual headache, hearing loss, vision dominguez PAST SURGICAL HISTORY Procedure Laterality Date VASECTOMY UNI/BI SPX W/POSTOP SEMEN EXAMS ALLERGIES Amoxicillin and Septra Ds [Sulfamethoxazole-Trimethoprim] MEDICATIONS lisdexamfetamine (VYVANSE) 50 mg capsule Take 1 capsule by mouth once daily for 30 days. lisdexamfetamine (VYVANSE) 50 mg capsule Take 1 capsule by mouth once daily for 30 days. Do not start before July 18, 2021. lisdexamfetamine (VYVANSE) 50 mg capsule Take 1 capsule by mouth once daily for 30 days. SUMAtriptan (IMITREX) 100 mg tablet Take 1 tablet by mouth as needed. take at onset of migraine, May repeat in 1 hour if needed. limit 2 doses in 24 hours. hydrOXYzine HCl (ATARAX) 25 mg tablet Take 1 tablet by mouth every 6 hours as needed for Itching/Rash. FAMILY HISTORY Problem Relation Age of Onset Diabetes Maternal Grandfather Heart Maternal Grandmother MT, CHF other (lupus) Maternal Grandmother Alzheimer's Disease Paternal Grandfather dementia Heart Paternal Grandfather Kidney Disease Paternal Grandfather other (healthy) Son gerd other (healthy) Daughter Social History Tobacco Use Smoking status: Never Smokeless tobacco: Current Types: Chew Tobacco comments: chews tobacco Substance Use Topics Alcohol use: Yes Comment: rare EXAM: Deferred physical exam as visit was completed over the phone Patient is speaking in complete sentences without obvious respiratory distress or audible wheezing. Virtual visit completed using video, limited exam completed. GENERAL: alert and appropriate, in no distress, well-hydrated, well nourished, and happy, smiling, interactive SKIN: no rash noted HEAD: normocephalic, no abnormality or lesion noted DATA REVIEWED: Most recent labs and imaging results. HIV SCREENING Never done DEPRESSION SCREENING due on 05/26/2019 COVID-19 VACCINE(3 - Booster for Pfizer series) due on 01/25/2021 INFLUENZA(1) due on 01/25/2022 DTAP,TDAP,TD(8 - Td or Tdap) due on 06/27/2026 HEPATITIS B Completed HEPATITIS C SCREENING Completed ASSESSMENT/PLAN: 1. Attention deficit disorder (ADD) in adult - ICD9: 314.00, ICD10: F98.8 (primary diagnosis) Stable. Well controlled on current regimen. Refilled. Follow-up in 6 months -- July 2022. Pt aware. - LISDEXAMFETAMINE 50 MG CAPSULE - LISDEXAMFETAMINE 50 MG CAPSULE - LISDEXAMFETAMINE 50 MG CAPSULE PDMP website checked and validated. All prescriptions have been APPROPRIATELY filled. No suspicious activity was identified. 01/31/2022 by Patti Hyatt APRN.MACHINE FOLDER 2. Headaches due to old head injury - ICD9: 339.20, 908.9, ICD10: G44.309, S09.90XS Stable. Well controlled on current regimen. Follow- up in 6 months, sooner if needed. Prescription instructions reviewed with patient as applicable. Potential red flag symptoms discussed with the patient. Reviewed appropriate action plan to take if red flag symptoms occur. Patient agreeable to treatment plan. During this patient visit I have spent approximately 15 minutes in counseling regarding medications. Patti Hyatt APRN.MACHINE FOLDER documented in this encounter [facility] 12-11-2021 Miscellaneous Notes The following approved medication requests have been transmitted electronically. Signed Prescriptions Disp Refills lisdexamfetamine (VYVANSE) 50 mg capsule 30 capsule 0 Sig: Take 1 capsule by mouth once daily for 30 days. RONI Class: C-II AMANDA: No Authorizing Provider: ANGELIA LOPEZ APRN.CNP PDMP website checked and validated. All prescriptions have been APPROPRIATELY filled. No suspicious activity was identified. 12/11/2021 by Angelia Lopez CNP. Patient phones requesting refills as follows: Pending Prescriptions Disp Refills LISDEXAMFETAMINE 50 MG CAPSULE 30 capsule 0 Sig: Take 1 capsule by mouth once daily for 30 days. RONI Class: C-II AMANDA: No VANESSA-06/19/21 Labs-06/22/21 NOV-none med filled 08/13/21 ends 09/12/21 Please review and advise. Emelia Thapa LPN documented in this encounter [facility] Evaluation note Diagnosis Attention deficit disorder (ADD) in adult [facility] Diagnosis Attention deficit disorder (ADD) in adult- Primary Headaches due to old head injury Post-traumatic headache, unspecified [facility] Diagnosis Attention deficit disorder (ADD) in adult [facility] Diagnosis Attention deficit disorder (ADD) in adult [facility] Diagnosis Acute midline low back pain without sciatica- Primary [facility]* Diagnosis Gastroesophageal reflux disease without esophagitis- Primary Esophageal reflux Attention deficit disorder (ADD) in adult Headaches due to old head injury Post-traumatic headache, unspecified Dyslipidemia Other and unspecified hyperlipidemia Ureterolithiasis Calculus of ureter Radiculopathy of lumbar region Thoracic or lumbosacral neuritis or radiculitis, unspecified Chronic midline low back pain with bilateral sciatica documented in this encounter [facility] note* Diagnosis Attention deficit disorder (ADD) in adult documented in this encounter [facility] note* Diagnosis Well adult exam- Primary Routine general medical examination at a health care facility Gastroesophageal reflux disease without esophagitis Esophageal reflux Attention deficit disorder (ADD) in adult Chronic midline low back pain with bilateral sciatica documented in this encounter [facility] note* Diagnosis Gastroesophageal reflux disease without esophagitis Esophageal reflux documented in this encounter [facility] note* Diagnosis Attention deficit disorder (ADD) in adult documented in this encounter [facility] note* Diagnosis Attention deficit disorder (ADD) in adult documented in this encounter [facility] note* Diagnosis Attention deficit disorder (ADD) in adult documented in this encounter [facility] note* Diagnosis Influenza A- Primary Influenza with other respiratory manifestations URI, acute Acute upper respiratory infections of unspecified site documented in this encounter [facility] note* Diagnosis Gastroesophageal reflux disease without esophagitis Esophageal reflux documented in this encounter [facility] note* Diagnosis Attention deficit disorder (ADD) in adult documented in this encounter [facility] note* Diagnosis Palpitations- Primary Attention deficit disorder (ADD) in adult Gastroesophageal reflux disease without esophagitis Esophageal reflux Headaches due to old head injury Post-traumatic headache, unspecified documented in this encounter [facility] note* Diagnosis Attention deficit disorder (ADD) in adult documented in this encounter [facility] note* Diagnosis Attention deficit disorder (ADD) in adult documented in this encounter [facility] note* Diagnosis Attention deficit disorder (ADD) in adult documented in this encounter [facility] note* Diagnosis Attention deficit disorder (ADD) in adult documented in this encounter [facility] for referral (narrative)* Diagnostic Procedure Only (Urgent) - Pending Review Specialty Diagnoses / Procedures Referred By Contac t Referred To Contact XR IMAGING Diagnoses Acute midline low back pain without sciatica Procedures XR SACRUM/COCCYX 3V AP/LAT RADEX SACRUM & COCCYX MINIMUM 2 VIEWS Amelia Chicas APRN.MACHINE FOLDER [address] [place] [address] Xr Imaging Referral ID Status Reason Start Date Expiration Date Visits Requested Visits Authorized [id number] Pending Review Auto-Generat ed Referral 07/15/2022 08/14/2023 1 1 * Diagnostic Procedure Only (Urgent) - Pending Review Specialty Diagnoses / Procedures Referred By Contac t Referred To Contact XR IMAGING Diagnoses Acute midline low back pain without sciatica Procedures XR LUMBAR GENERAL 3V AP/LAT/L5-S1 RADEX SPINE LUMBOSACRAL 2/3 VIEWS Amelia Chicas APRN.MACHINE FOLDER [address] [place] [address] Xr Imaging Referral ID Status Reason Start Date Expiration Date Visits Requested Visits Authorized [id number] Pending Review Auto-Generat ed Referral 07/15/2022 08/14/2023 1 1 * Medication Prior Authorization - Pending Review Specialty Diagnoses / Procedures Referred By Contac t Referred To Contact Diagnoses Acute midline low back pain without sciatica Amelia Chicas APRN.MACHINE FOLDER [address] [place] [address] Referral ID Status Reason Start Date Expiration Date V isits Requested Visits Authorized [id number] Pending Review 1 1 [facility] Summary Purpose Family History No Family History Records FoundNo Family History Records FoundNo Family History Records Found Advance Directives No Advanced Directives Records FoundNo Advanced Directives Records FoundNo Advanced Directives Records Found Reason for Referral Specialty Diagnoses / Procedures Referred By Contac t Referred To Contact MR IMAGING Diagnoses Radiculopathy of lumbar region Chronic midline low back pain with bilateral sciatica Procedures MRI LUMBAR SPINE WO IVCON MRI SPINAL CANAL LUMBAR W/O CONTRAST MATERIAL Saroj Raymond DO [address] [place] [address] Mr Imaging Referral ID Status Reason Start Date Expiration Date Visits Requested Visits Authorized [id number] Pending Review Auto-Generat ed Referral 07/25/2022 08/24/2023 1 1 Specialty Diagnoses / Procedures Referred By Contac t Referred To Contact Diagnoses Attention deficit disorder (ADD) in adult Saroj Raymond, DO [address] [place] [address] Referral ID Status Reason Start Date Expiration Date V isits Requested Visits Authorized [id number] Authorized 11/19/2023 11/18/2024 1 1 Specialty Diagnoses / Procedures Referred By Contbro schulz Referred To Contact [facility] Diagnoses Palpitations Procedures ECHO ECHO TTHRC R-T 2D W/WOM-MODE COMPL SPEC&COLR D Saroj Raymond, DO [address] [place] [address] [facility] [address] [place] [address] Referral ID Status Reason Start Date Expiration Date Visits Requested Visits Authorized [id number] Pending Review Auto-Generat ed Referral 11/19/2023 11/18/2024 1 1 Additional Source Comments (unrecognized sect ion and content) No Status Records FoundNo Status Records FoundNo Status Records Found INFORMATION SOURCE (unrecogn ized section and content) DATE CREATED AUTHOR 11/20/2017 [facility] DATE CREATED AUTHOR AUTHOR'S ORGANIZ ATION 10/31/2018 [facility] DATE CREATED AUTHOR AUTHOR'S ORGANIZ ATION 11/25/2023 [facility] Source Comments (unrecognize d section and content) In the event this informatio n is protected by the Federal Confidentiality of Alcohol and Drug Abuse Patient Records regulations: The Federal rules restrict any use of the information to criminally investigate or prosecute any alcohol or drug abuse patient.[facility] the event this information is protected by the Federal Confidentiality of Alcohol and Drug Abuse Patient Records regulations: The Federal rules restrict any use of the information to criminally investigate or prosecute any alcohol or drug abuse patient.[facility] the event this information is protected by the Federal Confidentiality of Alcohol and Drug Abuse Patient Records regulations: The Federal rules restrict any use of the information to criminally investigate or prosecute any alcohol or drug abuse patient.[facility] the event this information is protected by the Federal Confidentiality of Alcohol and Drug Abuse Patient Records regulations: The Federal rules restrict any use of the information to criminally investigate or prosecute any alcohol or drug abuse patient.[facility] the event this information is protected by the Federal Confidentiality of Alcohol and Drug Abuse Patient Records regulations: The Federal rules restrict any use of the information to criminally investigate or prosecute any alcohol or drug abuse patient.[facility] the event this information is protected by the Federal Confidentiality of Alcohol and Drug Abuse Patient Records regulations: The Federal rules restrict any use of the information to criminally investigate or prosecute any alcohol or drug abuse patient.[facility] the event this information is protected by the Federal Confidentiality of Alcohol and Drug Abuse Patient Records regulations: The Federal rules restrict any use of the information to criminally investigate or prosecute any alcohol or drug abuse patient.[facility] the event this information is protected by the Federal Confidentiality of Alcohol and Drug Abuse Patient Records regulations: The Federal rules restrict any use of the information to criminally investigate or prosecute any alcohol or drug abuse patient.[facility] the event this information is protected by the Federal Confidentiality of Alcohol and Drug Abuse Patient Records regulations: The Federal rules restrict any use of the information to criminally investigate or prosecute any alcohol or drug abuse patient.[facility] the event this information is protected by the Federal Confidentiality of Alcohol and Drug Abuse Patient Records regulations: The Federal rules restrict any use of the information to criminally investigate or prosecute any alcohol or drug abuse patient.[facility] the event this information is protected by the Federal Confidentiality of Alcohol and Drug Abuse Patient Records regulations: The Federal rules restrict any use of the information to criminally investigate or prosecute any alcohol or drug abuse patient.[facility] the event this information is protected by the Federal Confidentiality of Alcohol and Drug Abuse Patient Records regulations: The Federal rules restrict any use of the information to criminally investigate or prosecute any alcohol or drug abuse patient.[facility] Hospital[facility] the event this information is protected by the Federal Confidentiality of Alcohol and Drug Abuse Patient Records regulations: The Federal rules restrict any use of the information to criminally investigate or prosecute any alcohol or drug abuse patient.[facility] the event this information is protected by the Federal Confidentiality of Alcohol and Drug Abuse Patient Records regulations: The Federal rules restrict any use of the information to criminally investigate or prosecute any alcohol or drug abuse patient.[facility] the event this information is protected by the Federal Confidentiality of Alcohol and Drug Abuse Patient Records regulations: The Federal rules restrict any use of the information to criminally investigate or prosecute any alcohol or drug abuse patient.[facility] Hospital[facility] the event this information is protected by the Federal Confidentiality of Alcohol and Drug Abuse Patient Records regulations: The Federal rules restrict any use of the information to criminally investigate or prosecute any alcohol or drug abuse patient.[facility] the event this information is protected by the Federal Confidentiality of Alcohol and Drug Abuse Patient Records regulations: The Federal rules restrict any use of the information to criminally investigate or prosecute any alcohol or drug abuse patient.[facility] the event this information is protected by the Federal Confidentiality of Alcohol and Drug Abuse Patient Records regulations: The Federal rules restrict any use of the information to criminally investigate or prosecute any alcohol or drug abuse patient.[facility] Hospital[facility] the event this information is protected by the Federal Confidentiality of Alcohol and Drug Abuse Patient Records regulations: The Federal rules restrict any use of the information to criminally investigate or prosecute any alcohol or drug abuse patient.[facility] HospitalIn the event this information is protected by the Federal Confidentiality of Alcohol and Drug Abuse Patient Records regulations: The Federal rules restrict any use of the information to criminally investigate or prosecute any alcohol or drug abuse patient.[facility] HospitalIn the event this information is protected by the Federal Confidentiality of Alcohol and Drug Abuse Patient Records regulations: The Federal rules restrict any use of the information to criminally investigate or prosecute any alcohol or drug abuse patient.[facility] Hospital[facility] the event this information is protected by the Federal Confidentiality of Alcohol and Drug Abuse Patient Records regulations: The Federal rules restrict any use of the information to criminally investigate or prosecute any alcohol or drug abuse patient.[facility] HospitalIn the event this information is protected by the Federal Confidentiality of Alcohol and Drug Abuse Patient Records regulations: The Federal rules restrict any use of the information to criminally investigate or prosecute any alcohol or drug abuse patient.[facility] HospitalIn the event this information is protected by the Federal Confidentiality of Alcohol and Drug Abuse Patient Records regulations: The Federal rules restrict any use of the information to criminally investigate or prosecute any alcohol or drug abuse patient.[facility] HospitalIn the event this information is protected by the Federal Confidentiality of Alcohol and Drug Abuse Patient Records regulations: The Federal rules restrict any use of the information to criminally investigate or prosecute any alcohol or drug abuse patient.[facility] HospitalIn the event this information is protected by the Federal Confidentiality of Alcohol and Drug Abuse Patient Records regulations: The Federal rules restrict any use of the information to criminally investigate or prosecute any alcohol or drug abuse patient.[facility] HospitalIn the event this information is protected by the Federal Confidentiality of Alcohol and Drug Abuse Patient Records regulations: The Federal rules restrict any use of the information to criminally investigate or prosecute any alcohol or drug abuse patient.[facility] HospitalIn the event this information is protected by the Federal Confidentiality of Alcohol and Drug Abuse Patient Records regulations: The Federal rules restrict any use of the information to criminally investigate or prosecute any alcohol or drug abuse patient.[facility] Reason for Visit (unrecogniz ed section and content) Reason Onset Date Comments Refill Request 12/08/2021 Reason Comments Medication Problem Reason Onset Date Comments Refill Request 05/07/2022 Reason Onset Date Comments Refill Request 07/02/2022 Reason Comments Back Pain X 7 days Reason Comments Follow Up Reason Comments Zurdo GUILLEN Reason Onset Date Comments Refill Request 12/25/2022 Reason Comments Yearly Exam Reason Comments Results Reason Onset Date Comments Refill Request 02/04/2023 Reason Comments Patient Question Reason Onset Date Comments Refill Request 04/06/2023 Reason Onset Date Comments Refill Request 05/03/2023 Reason Onset Date Comments Refill Request 05/05/2023 Reason Comments Cough Cough, fever and con gestion x 3 days Reason Onset Date Comments Refill Request 09/09/2023 Reason Onset Date Comments Refill Request 10/14/2023 Reason Comments Follow Up Reason Comments Results, Lab Reason Comments [facility] requesting fax order Reason Comments Refill Request Reason Onset Date Comments Refill Request 01/16/2024 Reason Onset Date Comments Refill Request 02/17/2024 Reason Onset Date Comments Refill Request 03/11/2024 Care Teams (unrecognized sec tion and content) Graining Operator Relationship Specialty Start Date End Date Saroj Raymond, DO [address] [facility] [place] [address] PCP - General Family Practice 09/06/15 Graining Operator Relationship Specialty Start Date End Date Saroj Raymond, DO [address] [facility] [place] [address] PCP - General Family Practice 09/06/15 Graining Operator Relationship Specialty Start Date End Date Saroj Raymond, DO [address] [facility] [place] [address] PCP - General Family Medicine 09/06/15 Graining Operator Relationship Specialty Start Date End Date Saroj Raymond, DO [address] [facility] [place] [address] PCP - General Family Medicine 09/06/15 Graining Operator Relationship Specialty Start Date End Date Saroj Raymond, DO [address] [facility] [place] [address] PCP - General Family Medicine 09/06/15 Graining Operator Relationship Specialty Start Date End Date Saroj Raymond, DO [address] [facility] [place] [address] PCP - General Family Medicine 09/06/15 Graining Operator Relationship Specialty Start Date End Date Saroj Raymond DO [address] [facility] [place] [address] PCP - General Family Medicine 09/06/15 Graining Operator Relationship Specialty Start Date End Date Saroj Raymond DO [address] [facility] [place] [place] [address] PCP - General Family Medicine 09/06/15 Graining Operator Relationship Specialty Start Date End Date Saroj Raymond DO [address] [facility] [place] [address] PCP - General Family Medicine 09/06/15 Graining Operator Relationship Specialty Start Date End Date Saroj Raymond DO [address] [facility] [place] [place] [address] PCP - General Family Medicine 09/06/15 Graining Operator Relationship Specialty Start Date End Date Saroj Raymond DO [address] [facility] [place] [place] [address] PCP - General Family Medicine 09/06/15 Graining Operator Relationship Specialty Start Date End Date Saroj Raymond DO [address] [facility] [place] [place] [address] PCP - General Family Medicine 09/06/15 Graining Operator Relationship Specialty Start Date End Date Saroj Raymond DO [address] [facility] [place] [address] PCP - General Family Medicine 09/06/15 Graining Operator Relationship Specialty Start Date End Date Saroj Raymond, [address] [place] [address] PCP - General Family Medicine 09/06/15 Graining Operator Relationship Specialty Start Date End Date Saroj Raymond, [address] [place] [address] PCP - General Family Medicine 09/06/15 Graining Operator Relationship Specialty Start Date End Date Saroj Raymond, [address] [place] [address] PCP - General Family Medicine 09/06/15 Graining Operator Relationship Specialty Start Date End Date Saroj Raymond DO [address] [place] [address] PCP - General Family Medicine 09/06/15 Graining Operator Relationship Specialty Start Date End Date Saroj Raymond DO [address] [place] [address] PCP - General Family Medicine 09/06/15 Graining Operator Relationship Specialty Start Date End Date Saroj Raymond DO [address] [place] [address] PCP - General Family Medicine 09/06/15 Graining Operator Relationship Specialty Start Date End Date Saroj Raymond DO [address] [place] [address] PCP - General Family Medicine 09/06/15 Graining Operator Relationship Specialty Start Date End Date Saroj Raymond, [address] [place] [address] PCP - General Family Medicine 09/06/15 Graining Operator Relationship Specialty Start Date End Date Saroj Raymond DO [address] [place] [address] PCP - General Family Medicine 09/06/15 FOR RECORDS PERTAINING TO PATIENTS WHO ARE OR HAVE BEEN ENROLLED IN A CHEMICAL DEPENDENCY/SUBSTANCEABUSE PROGRAM, SOME INFORMATION MAY BE OMITTED. This clinical summary was aggregated from multiple sources. Caution should be exercised in using it in the provision of clinical care. This summary normalizes information from multiple sources, and as a consequence, information in this document may materially change the coding, format and clinical context of patient data. In addition, data may be omitted in some cases. CLINICAL DECISIONS SHOULD BE BASED ON THE PRIMARY CLINICAL RECORDS. [employer] [facility] provides no warranty or guarantee of the accuracy or completeness of information in this document.
== END | disposition home or self-care (01) ==
LOC: CT 16:16
PROVIDERS: PCP Student in an Organized Health Care Education/Training Program; Referring Provider Student in an Organized Health Care Education/Training Program; Visit Provider Student in an Organized Health Care Education/Training Program
DX: K62.89 Other specified diseases of anus and rectum (principal)
CPT/HCPCS: 36415; 74177; 83605; 85025; 85652; 86140; Q9967

== ENCOUNTER 2024-03-24 11:01 | Emergency (ER) | payer OTHER, SELFPAY ==
[2024-03-24 11:02] VITALS: BP 138/93; PULSE 72; RESP 18; TEMP 36.2; O2SAT 99; BMI 32.8
[2024-03-24 13:02] VITALS: RESP 14
--- NOTE | 2024-03-24 13:13 | ED.VIS.GI ---
HPI HPI - GI History of Present Illness Chief Complaint: Other, Pain/Inj Informant: patient Abdominal Pain/Flank Pain Onset: Weeks Context: Gradual Onset Timing: Continuous Quality: Burning and Sharp Location: - (Perirectal) Worsened by: Nothing Relieved by: Nothing Nausea/Vomiting/Emesis GI Symptom: Negative for Nausea or Vomiting Diarrhea/Melena/Hematochezia GI Symptom: Negative for Diarrhea, Melena or Hematochezia Associated Symptoms Associated Symptoms: Negative for Dysuria, Frequency or Hematuria Narrative Narrative: Patient presents with rectal pain that has been getting worse over the past few weeks. Patient was scheduled for a procedure today for Botox injection. Patient states that his procedure was canceled. Patient states that he was told to come to the emergency department in order to expedite rescheduling. Patient denies any new symptoms. Patient denies any fevers or chills. Patient states he had a recent CT scan which did not show any abscess or acute abnormality. [facility] Medical History Wears glasses Wears contact lenses Kidney stones Migraine headache Injury of head and neck Gastric reflux Chewing tobacco dependence Asthma History of stress test Hemorrhoids Traumatic brain injury Left ankle instability Hypercholesteremia Vasectomy evaluation ADHD Tobacco use GERD (gastroesophageal reflux disease) Lab test negative for COVID-19 virus Home Medications ?Medication ?Instructions ?Recorded ?Last Taken ?Type sumatriptan succinate 100 mg 100 mg PO DAILY PRN MIGRAINE 06/02/17 Unknown History tablet (Imitrex) rabeprazole 20 mg tablet,delayed 20 mg PO DAILY GERD 30 days #30 05/07/22 12/10/23 Rx release (AcipHex) tabs dextroamphetamine-amphetamine 20 20 mg PO DAILY ADHD 12/10/23 12/10/23 History mg tablet (Adderall) multivitamin (Daily Multi-Vitamin 1 tab PO DAILY HEALTH MAINTENANCE 12/10/23 12/10/23 History tablet) budesonide 3 mg 6 mg (2 x 3 mg) PO DAILY CROHNS 12/18/23 Unknown Rx capsule,delayed,extended release DISEASE #60 ea Diltiazem 10mg/Lidocaine 50mg 1 supp MT BID 21 days #30 supp 03/23/24 Unknown Rx Suppository 30 supp suppository Hydrocortisone 2.5% / Lidocaine 5% #1 ea 03/23/24 Unknown Rx ointment (cmpd) (Hydrocortisone 2.5%/lidocaine 5% ointment (compound)) oxycodone 5 mg tablet 5 mg PO TID PRN PAIN 10 days #30 03/23/24 Unknown Rx tabs lisdexamfetamine 70 mg capsule 70 mg PO DAILY ADHD 03/24/24 Unknown History (Vyvanse) Allergy/AdvReac Type Severity Reaction Status Date / Time amoxicillin Allergy Hives Verified 03/24/24 11:02 Sulfa (Sulfonamide Allergy Hives Verified 03/24/24 11:02 Antibiotics) sulfamethoxazole (From Allergy Hives Verified 03/24/24 11:02 Septra) trimethoprim (From ) Allergy Hives Verified 03/24/24 11:02 Surgical History Hx of vasectomy Social History Smoking Status: Never smoker ROS ROS ED Constitutional Constitutional ED: Denies chills or fever(s) Eyes Eyes: Denies blurry vision or change in vision ENT ENT ED: Denies rhinorrhea or sore throat Cardiovascular Cardiovascular: Denies chest pain or palpitations Respiratory/Chest Respiratory/Chest: Denies cough or dyspnea Gastrointestinal Gastrointestinal: Denies nausea or vomiting Genitourinary Genitourinary ED: Denies dysuria or hematuria Musculoskeletal Musculoskeletal: Denies back pain or neck pain Integumentary Denies abscess or rash Neurologic Neurologic: Denies headache(s) or weakness Allergic/Immunologic Allergic/Immunologic ED: Denies mouth swelling or urticaria EXAM Physical Exam Const Vital Signs: 03/24/24 11:02 03/24/24 12:19 03/24/24 13:02 Temperature 97.1 F L Temperature Source Temporal Pulse Rate 72 Respiratory Rate 18 14 Respiratory Effort Normal Respiratory Pattern Normal Blood Pressure 138/93 H Blood Pressure Mean 108 Pulse Ox 99 Oxygen Delivery Method Room Air Room Air 03/24/24 14:51 03/24/24 15:00 Temperature 97.1 F L Temperature Source Pulse Rate 72 Respiratory Rate 14 16 Respiratory Effort Respiratory Pattern Blood Pressure 138/93 H Blood Pressure Mean 108 Pulse Ox 99 Oxygen Delivery Method Room Air Positive well nourished and well developed General Appearance ED: well developed and NAD HEENT Reports moist mucous membranes Neck supple and no JVD Resp normal respiratory effort and clear to auscultation bilaterally Cardio regular rate and regular rhythm GI non-tender and non-distended GI Narrative: Rectal examination did not show any active bleeding or external hemorrhoids. There is mild tenderness in the perirectal area. There is no evidence of any abscess or swelling. There is no erythema. Palpation: soft Neuro CN's II-XII intact bilaterally, moves all extremities and no sensory deficits noted Sensorium / Orientation: alert Motor Exam: strength 5/5 throughout Psych mental status grossly normal MDM MDM MDM Narrative Medical decision making narrative: Differential diagnosis includes proctitis, muscle spasm, infection, and internal hemorrhoids. CBC will be obtained to assess for leukocytosis and anemia. Comprehensive metabolic profile will be obtained to assess for hepatic function, renal function, and electrolyte abnormality. PT was INR and PTT will be obtained to assess for coagulopathy. Lab Data Attestation: I reviewed the patient's lab results. Lab results narrative: CBC was reviewed and was within normal limits. Comprehensive metabolic profile was reviewed and was essentially within normal limits. PT with INR and PTT were reviewed and were within normal limits. Labs: Laboratory Results - last 24 hr 03/24/24 13:53 WBC 5.7 RBC 5.39 Hgb 15.3 Hct 46.5 MCV 86.3 MCH 28.4 MCHC 32.9 RDW Std Deviation 42.1 RDW Coeff of George 13.3 Plt Count 280 MPV 9.8 Immature Gran % (Auto) 0.200 Neut % (Auto) 50.2 Lymph % (Auto) 38.4 Hardin % (Auto) 8.9 Eos % (Auto) 1.4 Baso % (Auto) 0.9 Absolute Neuts (auto) 2.9 Absolute Lymphs (auto) 2.19 Nucleated RBC % 0 PT 12.0 INR 0.9 APTT 29.2 Sodium 139 Potassium 3.8 Chloride 105 Carbon Dioxide 28.0 Anion Gap 6 BUN 12 Creatinine 1.22 Estim Creat Clear Calc 88.95 Est GFR (MDRD) Af Amer 86 Est GFR (MDRD) Non-Af 71 BUN/Creatinine Ratio 9.8 L Glucose 100 Calcium 9.4 Total Bilirubin 0.40 AST 22 ALT 34 Alkaline Phosphatase 54 Total Protein 7.3 Albumin 4.1 Globulin 3.2 Albumin/Globulin Ratio 1.3 Treatment and Re-Evaluation :: Patient was advised of his findings. Case was discussed with Dr. Aguayo. Patient does not meet any criteria for admission. Patient was instructed to contact Dr. Aguayo's office to reschedule his procedure. Patient was instructed to continue his analgesic medication as previously prescribed. Patient understood and was agreeable with the plan. All questions were answered. Dr. Aguayo did call back and stated that if the hospitalist was going to admit the patient, he could add the patient onto the schedule tomorrow. Case was discussed with the hospitalist. Hospitalist if there was no indication for admission and that this would have to be done as an outpatient. Patient and spouse were advised of this. Patient was instructed to reschedule his procedure as an outpatient. Patient and spouse understood and were agreeable with the plan. All questions were answered. Discharge Plan Triage Chief Complaint: Other, Pain/Inj ED Provider: Edilson Huddleston Dx/Rx/DC Orders Clinical Impression: Proctalgia Instructions: ED Pain, Acute, Uncertain Cause Prescriptions: No Action sumatriptan succinate [Imitrex] 100 MG tablet 100 mg PO DAILY PRN (Reason: MIGRAINE ) lisdexamfetamine [Vyvanse] 70 mg capsule 70 mg PO DAILY dextroamphetamine-amphetamine [Adderall] 20 mg tablet 20 mg PO DAILY multivitamin [Daily Multi-Vitamin] Tablet 1 tab PO DAILY rabeprazole [AcipHex] 20 mg tablet,delayed release (DR/EC) 20 mg PO DAILY 30 Days Qty: 30 5RF budesonide 3 mg capsule,delayed,extend.release 6 mg PO DAILY Qty: 60 5RF (DME) Hydrocortisone 2.5%/lidocaine 5% ointment (compound) Ointment See Rx Instructions .Route Qty: 1 3RF Rx Instructions: Apply to anal rectal area 3 times a day Diltiazem 10mg/Lidocaine 50mg Suppository 30 supp suppository 1 supp MT BID 21 Days Qty: 30 0RF Rx Instructions: diltiazem HCl (bulk) powder 300 mg; lidocaine (bulk) powder 1500 mg; Per 30 supp oxycodone 5 mg tablet 5 mg PO TID PRN (Reason: PAIN ) 10 Days Qty: 30 0RF Primary Care Provider: Saroj Michel Referrals: Saroj Michel DO [Primary Care Provider] - 3-5 Days Eagle Aguayo DO [Med Staff - Active Staff] - 3-5 Days Print Language: Luxembourger Disposition Disposition: Home, Self Care Discharge Date/Time: 03/24/24 15:49
[2024-03-24 14:03] LABS: Absolute Lymphocyte Count 2.19 X10^3/uL (0.83-4.51); Absolute Neutrophil Count 2.9 X10^3/uL (2.0-7.7); Basophil# 0.05 X10^3/uL; Basophil% 0.9 % (0-1); Eosinophil# 0.08 X10^3/uL; Eosinophils% 1.4 % (0-5); Hematocrit 46.5 % (40-54); Hemoglobin 15.3 g/dL (13.0-16.5); Lymphocyte # 2.19 X10^3/ul (0.83-4.51); Lymphocyte % 38.4 % (19-41); Mean Corp Hgb Conc 32.9 g/dL (32-36); Mean Corpuscular Hgb 28.4 pg (27.0-32.0); Mean Corpuscular Volume 86.3 fL (80-94); Mean Platelet Vol. 9.8 fl (6.2-12.0); Monocyte# 0.51 X10^3/uL; Monocyte% 8.9 % (0-10); NRBC Flagged by Analyzer 0 % (0-5); Neutrophil # 2.87 X10^3/uL (2.7-7.7); Neutrophil % 50.2 % (47-70); Platelet Count 280 K/mm3 (150-450); RBC Distribution Width CV 13.3 % (11.6-14.6); RBC Distribution Width SD 42.1 fl (35.1-43.9); Red Blood Count 5.39 M/mm3 (4.6-6.2); White Blood Count 5.7 K/mm3 (4.4-11.0)
[2024-03-24 14:13] LABS: International Normalized Ratio 0.9
[2024-03-24 14:14] LABS: Partial Thromboplast Time 29.2 Seconds (24.1-36.2)
[2024-03-24 14:19] LABS: ALB/GLOB Ratio 1.3 RATIO (0.9-2.4); AST(SGOT) 22 U/L (15-37); Alanine Aminotransfer ALT/SGPT 34 U/L (16-61); Albumin, Serum 4.1 g/dL (3.2-5.0); Alkaline Phosphatase 54 U/L (45-117); Anion Gap 6 (5-15); BUN 12 mg/dL (7-18); BUN/Creat Ratio 9.8 RATIO (10-20); Calcium,Total 9.4 mg/dL (8.5-10.1); Chloride 105 mmol/L (98-107); Creatinine, Serum 1.22 mg/dL (0.70-1.30); EST Glomerular Filtration Rate 71 mL/min (>60); Est Glom Filt Rate - Afr Amer 86 mL/min (>60); Estimated Creatinine Clearance 88.95 ml/min; Globulin 3.2 g/dL (2.2-4.2); Glucose 100 mg/dL (74-106); Potassium 3.8 mmol/L (3.5-5.1); Protein, Total 7.3 g/dL (6.4-8.2); Sodium Level 139 mmol/L (136-145)
[2024-03-24 14:51] VITALS: BP 138/93; PULSE 72; RESP 14; TEMP 36.2; O2SAT 99
[2024-03-24 15:00] VITALS: RESP 16
== END 2024-03-24 15:49 | disposition home or self-care (01) ==
PROVIDERS: Emergency Provider Emergency Medicine; PCP Student in an Organized Health Care Education/Training Program; Visit Provider Emergency Medicine
DX: R10.9 Unspecified abdominal pain (principal); K62.89 Other specified diseases of anus and rectum; E78.00 Pure hypercholesterolemia, unspecified; K21.9 Gastro-esophageal reflux disease without esophagitis; Z79.899 Other long term (current) drug therapy; G43.909 Migraine, unspecified, not intractable, without status migrainosus; F90.9 Attention-deficit hyperactivity disorder, unspecified type; J45.909 Unspecified asthma, uncomplicated; Z79.51 Long term (current) use of inhaled steroids; Z98.52 Vasectomy status
CPT/HCPCS: 80053; 85025; 85610; 85730; 99283; A4216

== ENCOUNTER 2024-03-27 10:31 | Day surgery (SDC) | payer OTHER, SELFPAY ==
[2024-03-27] VITALS (8 sets, daily range): BP systolic 101–133; BP diastolic 68–92; PULSE 79–101; RESP 12–18; TEMP 36.2–36.5; O2SAT 94–98; BMI 32.3
--- NOTE | 2024-03-27 10:58 | PCM.PRE.AN2 ---
ASA Classification* ASA Classification ASA Classification: 2 (SEE WRITTEN PRE ANESTHESIA RECORD FOR FULL ASSESSMENT) Assessment & Plan Anesthesia* Anesthesia Assessment Anesthesia Assessment: Discussed sedation and/or anesthesia options, risks, benefits, and alternatives with patient/parents/legal guardian/POA. Questions invited. The patient/parents/legal guardian/POA seems to understand and agrees to proceed with anesthesia plan. Reviewed the physical assessment, medical history, allergy history and patient home medications list prior to surgery/procedure/anesthetic and documented any changes. Performed airway and anesthesia risk assessments. Anesthesia Type Anesthesia Type: MAC (SEE WRITTEN PRE ANESTHESIA RECORD FOR FULL ASSESSMENT) Anesthesia Focused Assessment* Temperature: 97.6 F Pulse Rate: 79 Blood Pressure: 133/92 Respiratory Rate: 17 Pulse Ox: 98 Airway Assessment Mouth opens: >3 cm Mallampati Score: II Focused Labs Anesthesia Preop lab: CBC WBC 5.7 K/mm3 (4.4-11.0) 03/24/24 13:53 RBC 5.39 M/mm3 (4.6-6.2) 03/24/24 13:53 Hgb 15.3 g/dL (13.0-16.5) 03/24/24 13:53 Hct 46.5 % (40-54) 03/24/24 13:53 Plt Count 280 K/mm3 (150-450) 03/24/24 13:53 CHEMISTRY Potassium 3.8 mmol/L (3.5-5.1) 03/24/24 13:53 Sodium 139 mmol/L (136-145) 03/24/24 13:53 BUN 12 mg/dL (7-18) 03/24/24 13:53 Creatinine 1.22 mg/dL (0.70-1.30) 03/24/24 13:53 Glucose 100 mg/dL (74-106) 03/24/24 13:53 TSH 1.88 uIU/mL (0.358-3.74) 11/19/23 12:13 COAG PT 12.0 SECONDS (11.7-14.9) 03/24/24 13:53 Pre-Assessment Diagnosis/Proposed Procedure Planned Operative Procedure(s): FLEX SIG WITH BOTOX Anesthesia History Anesthesia History - manager applied: Anesthesia History - manager applied Hx Hospitalization No 03/25/24 12:35 Any Problems With Anesthesia No 03/25/24 12:35 Cholinesterase deficiency No 03/25/24 12:35 You/Your Family Experience No 03/25/24 12:35 fever (hyperthermia) with Relationship Recent Exposure to Contagious No 03/27/24 10:50 Disease Does patient have nerve No 03/25/24 12:35 stimulator Patient instructed to have device shut off --Does patient have Pacemaker No 03/27/24 10:50 or ICD? When Was Last Pacemaker Check QUESTION #4 FULL TEXT: You/Your Family Experience fever (hyperthermia) with Anesthesia Last Oral Intake Last Oral intake: Last Oral Intake NPO since 08:00 03/27/24 10:50 Meds taken in AM with sips of Yes 03/27/24 10:50 water? Meds patient instructed to see home med list 03/27/24 10:50 take am of surgery PONV PONV - manager applied: PONV - manager applied Female No 03/25/24 12:35 HX of Motion Sickness No 03/25/24 12:35 HX of N/V After Surgery No 03/25/24 12:35 Non-Smoker Yes 03/25/24 12:35 Duration of Surgery greater No 03/25/24 12:35 than 60 minutes Number of Risk Factors 1 03/25/24 12:35 PONV Score Low Risk 03/25/24 12:35 Height & Weight Height & Weight: Anesthesia: Height & Weight Height 5 ft 6 in 03/27/24 10:50 Weight: 91 kg 03/27/24 10:50 Body Mass Index (BMI) 32.3 03/27/24 10:50 Respiratory Assessment Respiratory Assessment - manager applied: Respiratory Tract Infection Hx - manager applied Hx Respiratory Tract Infection No 03/25/24 12:35 STOP Sleep Apnea STOP Sleep Apnea - manager applied: STOP Sleep Apnea - manager applied Hx Hypertension No 03/25/24 12:35 Hx Sleep Apnea No 03/25/24 12:35 CPAP BIPAP Do you snore loudly (louder No 03/25/24 12:35 than talking or can be heard Do you often feel tired/ No 03/25/24 12:35 fatigued/ sleepy during daytime? Has anyone observed you stop No 03/25/24 12:35 breathing during sleep? STOP Results Negative 03/25/24 12:35 QUESTION #5 FULL TEXT : Do you snore loudly (louder than talking or can be heard through closed doors)? 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 Specify any problems Hx of Preganancy in last 3 N/A 03/25/24 12:35 Months Nurse Filling Out Transfusion NBUCHER 03/25/24 12:35 & Questions: Date: 03/25/24 03/25/24 12:35 Time: 12:37 03/25/24 12:35 Patient unable to answer at this time (ie. confused, unrespo /Reproduction History /Reproductive History - manager applied: /Reproductive Hx- manager applied Hx Now Gestational Age (in weeks): EDC: Hx Hx Para Hx Section SAB PFSH Medical History Diverticulosis Car[place] esophagus Wears glasses Wears contact lenses Kidney stones Migraine headache Injury of head and neck Gastric reflux Chewing tobacco dependence Asthma History of stress test Hemorrhoids Traumatic brain injury Left ankle instability Hypercholesteremia Vasectomy evaluation ADHD Tobacco use GERD (gastroesophageal reflux disease) Lab test negative for COVID-19 virus Home Medications ?Medication ?Instructions ?Recorded ?Last Taken ?Type sumatriptan succinate 100 mg 100 mg PO DAILY PRN MIGRAINE 06/02/17 Unknown History tablet (Imitrex) rabeprazole 20 mg tablet,delayed 20 mg PO DAILY GERD 30 days #30 05/07/22 03/27/24 Rx release (AcipHex) tabs dextroamphetamine-amphetamine 20 20 mg PO DAILY ADHD 12/10/23 03/26/24 History mg tablet (Adderall) multivitamin (Daily Multi-Vitamin 1 tab PO DAILY HEALTH MAINTENANCE 12/10/23 03/26/24 History tablet) budesonide 3 mg 6 mg (2 x 3 mg) PO DAILY CROHNS 12/18/23 03/27/24 Rx capsule,delayed,extended release DISEASE #60 ea Diltiazem 10mg/Lidocaine 50mg [address] BID 21 days #30 supp 03/23/24 Unknown Rx Suppository 30 supp suppository Hydrocortisone 2.5% / Lidocaine 5% #1 ea 03/23/24 Unknown Rx ointment (cmpd) (Hydrocortisone 2.5%/lidocaine 5% ointment (compound)) oxycodone 5 mg tablet 5 mg PO TID PRN PAIN 10 days #30 03/23/24 Unknown Rx tabs lisdexamfetamine 70 mg capsule 70 mg PO DAILY ADHD 03/24/24 03/27/24 History (Vyvanse) Allergy/AdvReac Type Severity Reaction Status Date / Time amoxicillin Allergy Hives Verified 03/27/24 10:49 Sulfa (Sulfonamide Allergy Hives Verified 03/27/24 10:49 Antibiotics) sulfamethoxazole (From Allergy Hives Verified 03/27/24 10:49 Septra) trimethoprim (From Septra) Allergy Hives Verified 03/27/24 10:49 Surgical History Hx of vasectomy Social History Smoking Status: Never smoker Review of Systems (Anesthesia) ROS Narrative System reviewed and no additional complaints, except as documented.
--- NOTE | 2024-03-27 12:00 | COLBX_PTH ---
PATIENT: MARIAN HAMILTON LOC: EN U#:[id number] AGE/SX: 38/M ROOM: RE03/27/[address]: Dr. Eagle Aguayo DO : 1985 BED: DIS: 03/27/2024 SPEC #: [id number] RECD: 03/27/24 14:44 STATUS: DRU FERNANDO #: [id number] VIET: 03/27/24 12:[address]: Eagle Aguayo DEPT: SURGICAL PATHOLOGY RECD BY: Frederick Rao ENTERED: 03/30/24 07:12 SP TYPE: COLON BX OTHR DR: Dr. Saroj Michel DO Tissues: A - Rectum, NOS B - Rectum, NOS Procedures: Surgery Specimen Level IV HEADER OPERATION: Flexible sigmoidoscopy with Botox, and biopsy PRE-OP DIAGNOSIS: Rectal pain TISSUE SUBMITTED: A- Rectal biopsy, B- Anal rectal verge MICROSCOPIC DIAGNOSIS A. Rectal biopsy: Focal minimal acute colitis. See comment. B. Anal rectal verge, biopsy: Fragments of colonic mucosa with congestion and hemorrhage. See comment. Selam 03/31/2024 COMMENT A. Minimal acute inflammatory cell infiltrates in the lamina propria and rare cryptitis are noted. Glandular distortion, crypt abscess or granulomas are not seen. Correlation with clinical, endoscopic findings and appropriate follow up are necessary. MICROSCOPIC DESCRIPTION Slides are reviewed. GROSS DESCRIPTION A. Received in fixative is one container labeled with the patient's name and designated Rectal biopsy. The specimen consists of two irregular fragments of light wong soft tissue that in aggregate measure 0.5 x 0.2 x 0.1 cm. The specimen is totally submitted in one cassette. B. Received in fixative is one container labeled with the patient's name and designated Anal rectal verge. The specimen consists of two irregular fragments of light wong soft tissue that in aggregate measure 0.4 x 0.2 x 0.1 cm. The specimen is totally submitted in one cassette. 03/30/2024 TC:2 CPT:20837v4
--- NOTE | 2024-03-27 12:03 | PCM.HP.BLA ---
History and Physical Date of Admission: 03/27/24 MARIAN HAMILTON, is a 38 M who presents to the office today for f/u. OV 11.08.23 pt reports he started noticing blood in his stool about a month ago; there were flecks of black in the stool and the water in the toilet was bright red, is not as bad as it had been, but his stool sample on 10.30.23 came back positive for blood. Pt reports that he possibly has hemorrhoids. Pt reports that he has started taking a fiber supplement and a stool softener since the blood in the stool began. Continues with Rabeprazole. Colonoscopy 12.11.23; Diverticulosis in the recto-sigmoid colon, in the sigmoid colon, in the descending colon and at the splenic flexure. - Congested mucosa in the terminal ileum. Biopsied. EGD 12.11.23; - Esophageal mucosal variant. Biopsied. 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 Biopsied. - Small hiatal hernia. - Erythematous duodenopathy. Biopsied. OV 03.23.24 pt is here today for rectal pain. Pt has been having his pain since August but it has improved up until a a few days ago. He has been having half hour long episodes of stabbing rectal pain. This will wake him up from his sleep. 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 He has no other GI symptoms. He denies fever or night sweats. ROS Const Constitutional: No fatigue, fever(s) or weight change ENT ENT: No difficulty swallowing Gastro GI: No abdominal pain, belching, bloating, change in bowel habits, change in stool character, coffee ground emesis, constipation, cramping, diarrhea, heartburn, difficulty swallowing, feeling full early, excessive flatus, incontinent of stools, Vomiting blood/hematemesis, Blood in stool, loose stools, Black,tarry stools, nausea/dyspepsia, pain with swallowing, vomiting or other Musc Musculoskeletal: No joint pain Skin Skin: No yellowing of the eye or itchy eyes Psych Psychiatric: No anxiety and No depression Endo Endocrine: No fatigue or weight change Aller/Imm Allergy/Immunologic: No itchy eyes Shaka/Lymp Hematologic/Lymphatic: No easy bleeding or easy bruising Exam Const General: cooperative and comfortable Nutritional Appearance: average body habitus and well nourished [facility] Head: normal to inspection Ears: hearing grossly normal bilaterally Nose: external nose normal Face and sinus: normal facial exam Eyes General: appearance normal, both eyes and all related structures Neck Neck: normal visual inspection Chest Chest palpation & inspection: normal inspection of the chest Resp Effort & Inspection: normal respiratory effort and able to speak in complete sentences Cardio Palpation: normal PMI Rhythm: regular rhythm GI Inspection: normal to inspection Rectal Exam: visual inspection normal, normal sphincter tone and hemorrhoids Skin General: no rashes or lesions noted Neuro General: patient alert Extrem General: normal to inspection Psych Affect: normal affect Assessment and Plan Assessment and Plan (1) Rectal pain: Status: Acute Plan: This is a 38 yo male here today for evaluation of severe rectal pain for the past 3 days. He has had this in the past but not recently. I spoke with Dr. Aguayo and he recommended we order a stat CT abdomen/pelvis to rule out a rectal abscess. He will also need blood work ESR, CRP, lactic acid and CBC. 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 Aguayo recommends botox in the levator ani muscle under sedation. He will be scheduled for this. Hydrocortisone/ lidocaine cream and suppository and oxycodone prescribed to him. -CT abdomen pelvis ordered stat -Blood work -Suppository, cream and pain medication sent to pharmacy -Consider botox under sedation for proctalgia fugax - Orders: Orders Abdomen/Pelvis WITH Contrast Today K62.89 - Other specified diseases of anus and rectum I have examined the patient and the H&P has been reviewed. There are no clinical changes since date of exam.
[2024-03-27] MEDS: Lidocaine Jelly 2% 20 ML Syringe (URO-JET) 1 APPLIC (12:19)
[2024-03-27] MEDS: 0.9% Normal Saline (Pres. free 10 ML Vial ×2 (12:36)
[2024-03-27] MEDS: Botulinum Toxin A 100 Units Vial 200 UNITS IJ (12:37)
--- NOTE | 2024-03-27 12:53 | PCM.POST.ANE ---
Anesthesia: Postop Eval I Current Vital Signs Temperature: 97.1 F Pulse Rate: 92 Blood Pressure: 117/68 Respiratory Rate: 12 Pulse Ox: 94 Oxygen Delivery Method: Room Air Assessment Airway patent: Yes Spontaneous unlabored respirations: Yes Mental status: Awake and Calm nausea: No Vomiting: No Anesthesia Complication: No Fluid Hydration Crystalloid volume administer (ml): 60 Total IV fluid infused: 60 Progress Note Anesthesia document: Postop Eval 1 completed: Yes
--- NOTE | 2024-03-27 12:54 | OP.FLEXSIG_ITS ---
Patient Name: Jeff Barber Procedure Date: 03/27/2024 11:10 AM Date of : 1985 Age: 38 Procedure: Flexible Sigmoidoscopy Indications: Rectal pain Providers: Eagle Aguayo DO Referring MD: Saroj Michel Medicines: Monitored Anesthesia Care Patient Profile: This is a 38 year old male. Refer to note in patient chart for documentation of history and physical. Last Colonoscopy: none. The patient's first colonoscopy is today. Complications: No immediate complications. Procedure: Pre-Anesthesia Assessment: - Prior to the procedure, a History and Physical was performed, and patient medications and allergies were reviewed. The patient is competent. The risks and benefits of the procedure and the sedation options and risks were discussed with the patient. All questions were answered and informed consent was obtained. Patient identification and proposed procedure were verified by the physician in the pre-procedure area. Mental Status Examination: alert and oriented. Airway Examination: normal oropharyngeal airway and neck mobility. Respiratory Examination: clear to auscultation. CV Examination: normal. Prophylactic Antibiotics: The patient does not require prophylactic antibiotics. Prior Anticoagulants: The patient has taken no anticoagulant or antiplatelet agents except for NSAID medication. ASA Grade Assessment: II - A patient with mild systemic disease. After reviewing the risks and benefits, the patient was deemed in satisfactory condition to undergo the procedure. The anesthesia plan was to use monitored anesthesia care (MAC). Immediately prior to administration of medications, the patient was re-assessed for adequacy to receive sedatives. The heart rate, respiratory rate, oxygen saturations, blood pressure, adequacy of pulmonary ventilation, and response to care were monitored throughout the procedure. The physical status of the patient was re-assessed after the procedure. After obtaining informed consent, the endoscope was passed under direct vision. Throughout the procedure, the patient's blood pressure, pulse, and oxygen saturations were monitored continuously. The Colonoscope was introduced through the anus and advanced to the sigmoid colon. The flexible sigmoidoscopy was accomplished without difficulty. The patient tolerated the procedure well. No bowel preparation was given prior to the procedure. Scope In: Scope Out: 12:44:06 PM Findings: An anal fissure was found on perianal exam. Localized mild inflammation characterized by erythema and friability was found in the rectum. Biopsies were taken with a cold forceps for histology. Verification of patient identification for the specimen was done. Estimated blood loss was minimal. Non-bleeding external and internal hemorrhoids were found during retroflexion. The hemorrhoids were Grade I (internal hemorrhoids that do not prolapse). Coagulation to prevent future bleeding of internal hemorrhoids using argon plasma at 0.3 liters/minute and 20 crouch was successful. Estimated blood loss was minimal. A 5 mm anal fissure was found in the anal canal. The internal anal sphincter was successfully injected with 180 units botulinum toxin. 180 units of botulinum A toxin were administered locally, in order to reduce the internal anal sphincter pressure. Injections in the internal anal sphincter were done in eight sites. Impression: - Anal fissure found on perianal exam. - Localized mild inflammation was found in the rectum secondary to colitis. Biopsied. - Non-bleeding external and internal hemorrhoids. Treated with thermal therapy. - Anal fissure. Injected with botulinum toxin. Recommendation: - Use original regular Metamucil one teaspoon PO daily for 2 weeks. Procedure Code(s): --- Professional --- 25787, Chemodenervation of internal anal sphincter 75787, Destruction of internal hemorrhoid(s) by thermal energy (eg, infrared coagulation, cautery, radiofrequency) 24608, Sigmoidoscopy, flexible; with biopsy, single or multiple CPT copyright 2021 [employer]. All rights reserved. The codes documented in this report are preliminary and upon rn military review may be revised to meet current compliance requirements. Eagle Aguayo DO 03/27/2024 12:54:31 PM This report has been signed electronically. Number of Addenda: 0 Note Initiated On: 03/27/2024 11:10 AM
--- NOTE | 2024-03-27 12:55 | OP.CCLET_ITS ---
03/27/2024 Saroj Michel [address] [place] [address] Re : Flexible Sigmoidoscopy procedure for Jeff Barber Dear Dr. Michel This procedure was performed on Wednesday, March 27, 2024. My impressions and recommendations are as follows: Impressions : - Anal fissure found on perianal exam. - Localized mild inflammation was found in the rectum secondary to colitis. Biopsied. - Non-bleeding external and internal hemorrhoids. Treated with thermal therapy. - Anal fissure. Injected with botulinum toxin. Recommendations : - Use original regular Metamucil one teaspoon PO daily for 2 weeks. My findings are described in the full procedure note, which is enclosed. If I can be of further assistance, please feel free to contact me at . Sincerely, Eagle Friend, 03/27/2024 12:54:31 PM This report has been signed electronically.
--- NOTE | 2024-03-27 13:06 | PCM.POSTANE2 ---
Anesthesia Postop Eval I Sum Postop Eval Completion status Anesthesia document: Postop Eval 1 completed: Yes Anesthesia Postop Eval I Summary Anesthesia Postop Eval I Summary: Anesthesia Postop Eval I: Assessment Summary Airway patent Yes 03/27/24 12:54 [email or web address] Spontaneous unlabored Yes 03/27/24 12:54 [email or web address] respirations Mental status Awake,Calm 03/27/24 12:54 [email or web address] nausea No 03/27/24 12:54 [email or web address] Vomiting No 03/27/24 12:54 [email or web address] Anesthesia Postop Eval I: Fluid Summary Crystalloid volume administer 60 03/27/24 12:54 [email or web address] (ml) Colloids volume administered ( ml) Blood Product volume administered (ml) Total IV fluid infused 60 03/27/24 12:54 [email or web address] Anesthesia Postop Eval I: Summary Notes Anesthesia Complication No 03/27/24 12:54 [email or web address] Anesthesia Complication Comment: Post-operative progress note Anesthesia: Postop Eval II Evaluation Mental status: Awake Pain Level: 0 nausea: No Vomiting: No
== END 2024-03-27 13:38 | disposition home or self-care (01) ==
LOC: EN 10:31 → AC 10:33
PROVIDERS: PCP Student in an Organized Health Care Education/Training Program; Referring Provider Student in an Organized Health Care Education/Training Program; Visit Provider Internal Medicine Gastroenterology
PROC: 0DJD8ZZ Inspection of Lower Intestinal Tract, Via Natural or Artificial Opening Endoscopic (ICD-10-PCS; CPT 45330; principal; 2024-03-27 11:55)
DX: K62.89 Other specified diseases of anus and rectum (principal); K52.9 Noninfective gastroenteritis and colitis, unspecified; K60.2 Anal fissure, unspecified; K64.0 First degree hemorrhoids; K64.4 Residual hemorrhoidal skin tags
CPT/HCPCS: 46930; 45331; 46505; 88305; A4216; J0585; J2405; J3490

== ENCOUNTER 2024-04-09 15:07 | Inpatient (IN) | payer OTHER, SELFPAY ==
[2024-04-09 15:08] VITALS: BP 140/97; PULSE 110; RESP 16; TEMP 35.8; O2SAT 98; BMI 31.9
[2024-04-09 15:54] VITALS: BP 125/89; PULSE 94; RESP 18; O2SAT 98
[2024-04-09 16:37] LABS: Anion Gap 5 (5-15); BUN 10 mg/dL (7-18); BUN/Creat Ratio 8.6 RATIO (10-20); Calcium,Total 9.3 mg/dL (8.5-10.1); Chloride 106 mmol/L (98-107); Creatinine, Serum 1.16 mg/dL (0.70-1.30); EST Glomerular Filtration Rate 75 mL/min (>60); Est Glom Filt Rate - Afr Amer 91 mL/min (>60); Glucose 101 mg/dL (74-106); Potassium 3.6 mmol/L (3.5-5.1); Sodium Level 138 mmol/L (136-145)
--- NOTE | 2024-04-09 16:58 | CT_ITS ---
INDICATION: History of diverticulosis, acute GI bleed, lower EXAMINATION: CTA abdomen and pelvis - TECHNIQUE: Routine abdominal CT angiogram protocol was performed with IV contrast. MIP images provided. A radiation dose optimization technique was used for this scan.The protocol utilizes one or more of the following dose reduction techniques: automated exposure control, adjustment of mA and/or kV according to patient size,and/or use of iterative reconstruction technique. IV Contrast dosage and agent: 100 mL Isovue-370 Radiation dose DLP 1187.17 mGy / cm. COMPARISON: CT abdomen and pelvis March 15, 2024. FINDINGS: Lung bases: Normal. Liver: Normal. No bile ductal dilatation. Gallbladder: Normal. Spleen: Normal. Adrenal gland: Normal. Kidneys: Normal. No hydronephrosis or stone formation. Pancreas:Normal. Bowel gas pattern: Marked colonic wall thickening within the sigmoid. Underlying mass difficult to exclude. Colonic diverticulosis. Stomach and small bowel unremarkable. Appendix: Normal. Free air: None. Free fluid: None. Pelvis: Pelvic organs: Bilateral fat-containing inguinal hernias. Bone survey: No aggressive bony lesions. No acute fractures. Adenopathy: No significant pathologic adenopathy detected. Other: None. Vascular: Normal vascular anatomy, CT/CTA Abd/Pelvis W/WO Contrast IMPRESSION: Possible nonspecific colitis or rectosigmoid mass. Recommend follow-up with rectal contrast. This may also represent hemorrhage. Electronically Signed: Jet Lam MD at 18:52 EST ,
--- NOTE | 2024-04-09 17:04 | EDS_ITS ---
HPI History of Present Illness Chief Complaint: GI Bleed Detail of Chief Complaint: Bright red blood per rectum and fullness left lower quadrant Informant: patient and spouse/S.O. Onset/Context/Timing Onset: Hours Context: Sudden Onset Timing: Continuous Quality: Fullness left lower quadrant and bright red blood per rectum Location: Lower GI Current Severity: Moderate Maximum Severity: Moderate Worsened by: Nothing Relieved by: Nothing Associated Symptoms Associated Symptoms: Question lightheadedness Narrative Narrative: Patient is a 38-year-old male. He has history of fissure and anal, internal hemorrhoids that were injected with botulism and cauterized by Dr. Aguayo. He also was noted to have diverticulosis. He states he has been doing fine since he was cauterized. Prior to arrival he has had 3 bloody stools with large clots. Clots are larger than they were in the past. He has had intermittent bleeding since September. Patient denies cardiac or respiratory symptoms. Patient denies fever, chills night sweats. Prior similar symptoms: Yes Recent Illness/Hospitalization: Yes [facility] Medical History Diverticulosis Carrington esophagus Wears glasses Wears contact lenses Kidney stones Migraine headache Injury of head and neck Gastric reflux Chewing tobacco dependence Asthma History of stress test Hemorrhoids Traumatic brain injury Left ankle instability Hypercholesteremia Vasectomy evaluation ADHD Tobacco use GERD (gastroesophageal reflux disease) Lab test negative for COVID-19 virus Home Medications ?Medication ?Instructions ?Recorded ?Last Taken ?Type sumatriptan succinate 100 mg 100 mg PO DAILY PRN MIGRAINE 06/02/17 Unknown History tablet (Imitrex) rabeprazole 20 mg tablet,delayed 20 mg PO DAILY GERD 30 days #30 05/07/22 04/09/24 Rx release (AcipHex) tabs dextroamphetamine-amphetamine 20 20 mg PO DAILY ADHD 12/10/23 04/09/24 History mg tablet (Adderall) multivitamin (Daily Multi-Vitamin 1 tab PO DAILY HEALTH MAINTENANCE 12/10/23 04/09/24 History tablet) budesonide 3 mg 6 mg (2 x 3 mg) PO DAILY CROHNS 12/18/23 04/09/24 Rx capsule,delayed,extended release DISEASE #60 ea Diltiazem 10mg/Lidocaine 50mg 1 supp IN BID 21 days #30 supp 03/23/24 Unknown Rx Suppository 30 supp suppository Hydrocortisone 2.5% / Lidocaine 5% #1 ea 03/23/24 Unknown Rx ointment (cmpd) (Hydrocortisone 2.5%/lidocaine 5% ointment (compound)) lisdexamfetamine 70 mg capsule 70 mg PO DAILY ADHD 03/24/24 04/09/24 History (Vyvanse) Allergy/AdvReac Type Severity Reaction Status Date / Time amoxicillin Allergy Hives Verified 04/09/24 15:12 Sulfa (Sulfonamide Allergy Hives Verified 04/09/24 15:12 Antibiotics) sulfamethoxazole (From Allergy Hives Verified 04/09/24 15:12 Septra) trimethoprim (From ) Allergy Hives Verified 04/09/24 15:12 Surgical History Hx of vasectomy Social History Smoking Status: Never smoker ROS ROS ED Constitutional Constitutional ED: Denies chills, fever(s), subjective or sweats Eyes Eyes: Denies blurry vision or change in vision ENT ENT ED: Denies ear pain or rhinorrhea Cardiovascular Cardiovascular: Denies chest pain or palpitations Respiratory/Chest Respiratory/Chest: Denies cough, dyspnea or dyspnea on exertion Gastrointestinal Gastrointestinal: Reports abdominal pain and other Details: Hematochezia ; Denies constipation, diarrhea, melena, nausea or vomiting Neurologic Neurologic: Denies paresthesias or weakness Hematologic/Lymphatic Hematologic/Lymphatic: Reports systems reviewed and no addt'l complaints, except as documented EXAM Physical Exam Const Vital Signs: 04/09/24 15:08 04/09/24 15:54 04/09/24 17:07 Temperature 96.5 F L Temperature Source Temporal Pulse Rate 110 H 94 75 Pulse Rate [Lying] Pulse Rate [Sitting (for 1 minute prior to obtaining)] Pulse Rate [Standing (for 1 minute prior to obtaining)] Respiratory Rate 16 18 15 Respiratory Effort Respiratory Pattern Blood Pressure 140/97 H 125/89 H 151/83 H Blood Pressure [Lying] Blood Pressure [Sitting (for 1 minute prior to obtaining)] Blood Pressure [Standing (for 1 minute prior to obtaining)] Blood Pressure Mean 111 101 105 Blood Pressure Mean [Lying] Blood Pressure Mean [Sitting (for 1 minute prior to obtaining)] Blood Pressure Mean [Standing (for 1 minute prior to obtaining)] Pulse Ox 98 98 99 Oxygen Delivery Method Room Air Room Air Room Air 04/09/24 17:07 04/09/24 19:00 04/09/24 20:28 Temperature Temperature Source Pulse Rate 72 Pulse Rate [Lying] 83 Pulse Rate [Sitting (for 1 minute prior to obtaining)] 83 Pulse Rate [Standing (for 1 minute prior to obtaining)] 102 H Respiratory Rate 25 H Respiratory Effort Normal Respiratory Pattern Normal Blood Pressure 142/85 H Blood Pressure [Lying] 141/79 H Blood Pressure [Sitting (for 1 minute prior to obtaining)] 151/83 H Blood Pressure [Standing (for 1 minute prior to obtaining)] 106/68 Blood Pressure Mean 104 Blood Pressure Mean [Lying] 99 Blood Pressure Mean [Sitting (for 1 minute prior to obtaining)] 105 Blood Pressure Mean [Standing (for 1 minute prior to obtaining)] 80 Pulse Ox 98 Oxygen Delivery Method Room Air 04/09/24 21:00 Temperature 98.2 F Temperature Source Pulse Rate 72 Pulse Rate [Lying] Pulse Rate [Sitting (for 1 minute prior to obtaining)] Pulse Rate [Standing (for 1 minute prior to obtaining)] Respiratory Rate 27 H Respiratory Effort Respiratory Pattern Blood Pressure 115/77 Blood Pressure [Lying] Blood Pressure [Sitting (for 1 minute prior to obtaining)] Blood Pressure [Standing (for 1 minute prior to obtaining)] Blood Pressure Mean 89 Blood Pressure Mean [Lying] Blood Pressure Mean [Sitting (for 1 minute prior to obtaining)] Blood Pressure Mean [Standing (for 1 minute prior to obtaining)] Pulse Ox 98 Oxygen Delivery Method Positive well nourished and well developed General Appearance ED: well developed and NAD; Negative for cyanotic, diaphoretic or pallor HEENT Reports moist mucous membranes HEENT Narrative: Head is atraumatic no cephalic. Ears normal. Eyes PERRL and EOMs intact bilaterally General Eye ED: Negative for pale conjunctiva Resp normal respiratory effort and clear to auscultation bilaterally Cardio regular rate, regular rhythm, S1 normal heart sound, S2 normal heart sound and no murmurs GI normal to inspection, nondistended, normoactive bowel sounds, non-distended and no masses; Negative for non-tender or hepatosplenomegaly GI Narrative: Discomfort left of suprapubic and left lower quadrant. There is guarding left lower quadrant. Bowel sounds are diminished. There is no inguinal lymphadenopathy. There is a sentinel tag noted. There is no fissures or fistulas noted. On rectal exam there is no stenosis. There is no palpable mass. There is gross blood noted. Prostate was normal size. Anoscopy was performed. Back/Spine no CVA tenderness Extremity normal to inspection Neuro oriented x3 and CN's II-XII intact bilaterally Sensorium / Orientation: alert Psych mental status grossly normal Skin no rashes or lesions noted, no wounds and skin turgor normal General Skin Exam: Negative for jaundice or pallor MDM MDM Lab Data Attestation: I reviewed the patient's lab results. Lab results narrative: Since patient is still awaiting for bed and appears pale and passed blood nurse was asked to repeat H&H. The H&H is unchanged from initial H&H that was obtained 6 hours ago. Labs: Laboratory Results - last 24 hr 04/09/24 04/09/24 04/09/24 16:03 17:08 18:22 WBC 8.0 RBC 4.73 Hgb 13.3 Hct 40.2 MCV 85.0 MCH 28.1 MCHC 33.1 RDW Std Deviation 41.5 RDW Coeff of George 13.3 Plt Count 301 MPV 10.0 Sodium 138 Potassium 3.6 Chloride 106 Carbon Dioxide 26.0 Anion Gap 5 BUN 10 Creatinine 1.16 Estim Creat Clear Calc 92.40 Est GFR (MDRD) Af Amer 91 Est GFR (MDRD) Non-Af 75 BUN/Creatinine Ratio 8.6 L Glucose 101 Calcium 9.3 Blood Type O NEGATIVE Antibody Screen NEGATIVE 04/09/24 20:54 WBC RBC Hgb 13.6 Hct 40.4 MCV MCH MCHC RDW Std Deviation RDW Coeff of George Plt Count MPV Sodium Potassium Chloride Carbon Dioxide Anion Gap BUN Creatinine Estim Creat Clear Calc Est GFR (MDRD) Af Amer Est GFR (MDRD) Non-Af BUN/Creatinine Ratio Glucose Calcium Blood Type Antibody Screen Radiography Diagnostic Testing: Clinical Impression(s) from Imaging Studies Abdomen/Pelvis CTA 04/09/24 16:58 IMPRESSION: Possible nonspecific colitis or rectosigmoid mass. Recommend follow-up with rectal contrast. This may also represent hemorrhage. Electronically Signed: Jet Lam MD at 18:52 EST , Management Discussion w/another healthcare provider: Business Transformation Consultant (Spoke with Dr. Aguayo. He agrees with CTA. If there is no acute bleed noted on CTA he feels comfortable with patient staying at [place] [facility]. If there is any acute bleed, plan is to transfer where there is interventional radiologist.) Treatment and Re-Evaluation :: I was not formed by the patient and his spouse that they are frustrated with Dr. Dede would like someone else to see him other than Dr. Aguayo. Spoke with Dr. Russ Wagner. He was informed of the past history, he was informed regarding frustration with GI. He states he would be glad to see patient and scope him tomorrow and if he requires a clip he could perform a clip if you would need more than he is capable of he would then recommend transfer. Procedures Other Procedures Procedure(s): Anoscopy: Anoscope was inserted. There was some blood noted above the anus scope. When the obturator was removed there was a gush of blood with large clots that passed. The part of the anal mucosa and distal rectal mucosa was visualized revealed no significant abnormality would not explain the amount of blood that passed once the obturator was removed. Unable to tube visualize anything else because of the amount of blood. This raises concern for an acute diverticular bleed. A CTA of the abdomen and pelvis was ordered. Discharge Plan Dx/Rx/DC Orders Clinical Impression: Acute lower gastrointestinal bleeding, Gastroesophageal reflux disease, History of diverticulosis Disposition Disposition: Acute Care Hospital [facility]
[2024-04-09 17:07] VITALS: BP 106/68; BP 141/79; BP 151/83; PULSE 102; PULSE 75; PULSE 83; RESP 15; O2SAT 99
[2024-04-09 18:30] LABS: Hematocrit 40.2 % (40-54); Hemoglobin 13.3 g/dL (13.0-16.5); Mean Corp Hgb Conc 33.1 g/dL (32-36); Mean Corpuscular Hgb 28.1 pg (27.0-32.0); Platelet Count 301 K/mm3 (150-450); RBC Distribution Width CV 13.3 % (11.6-14.6); RBC Distribution Width SD 41.5 fl (35.1-43.9); Red Blood Count 4.73 M/mm3 (4.6-6.2)
--- NOTE | 2024-04-09 18:51 | ED.RN ---
CT SCAN CALLED FOR PROLONGED READ TIME. RESPONSE IT IS IN DICTATION NOW
[2024-04-09 19:00] VITALS: BP 142/85; PULSE 72; RESP 25; O2SAT 98
--- NOTE | 2024-04-09 19:27 | HP.PCM.HOS_ITS ---
HPI - General General Date of Admission: 04/09/24 Date of Service: 04/09/24 Chief Complaint: Bright red bloody stools HPI Narrative MARIAN HAMILTON, is a 38 M who presented to [facility] ED on 04/09/2024 with 3 bright red bloody stools on the afternoon of presentation. Patient is followed with Dr. Aguayo with GI since September for multiple lower bowel issues, see Dr. Aguayo's H&P note from 03/27 for further details. In short patient began having some blood in his stool back in September. He had a colonoscopy on 12/10 that showed diverticulosis but no other significant concerns. He then developed significant rectal pain at the end of February. 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 Patient underwent sigmoidoscopy with Botox injection into the levator ani muscle on 03/27. He was then supposed to start hydrocortisone suppositories and creams but this had not been filled yet. He had improvement in his pain but then this afternoon had 3 bright red bloody bowel movements in a short span of time. He had no pain with these bowel movements. Did not have much stool at all with the use BMs. Because of this he came to the ED for further evaluation. CTA abdomen/pelvis showed possible nonspecific colitis versus hemorrhage. Anoscopy was performed by the ED physician and bright red blood with clots was removed. Patient was notably hemodynamically stable and hemoglobin was stable at 13. Given these findings, hospitalist was contacted for admission. I saw the patient at bedside in the ED, is present. Patient was laying comfortably in bed and in no acute distress. Patient unfortunately had some issues with Dr. Aguayo and requested to see general surgery here if a scope would be needed. ED physician spoke with Dr. Wagner and plan is for sigmoidoscopy tomorrow morning. Patient denies any other new concerns at this time. Will be admitted for further management. [facility] Medical History Diverticulosis Carrington esophagus Wears glasses Wears contact lenses Kidney stones Migraine headache Injury of head and neck Gastric reflux Chewing tobacco dependence Asthma History of stress test Hemorrhoids Traumatic brain injury Left ankle instability Hypercholesteremia Vasectomy evaluation ADHD Tobacco use GERD (gastroesophageal reflux disease) Lab test negative for COVID-19 virus Home Medications ?Medication ?Instructions ?Recorded ?Last Taken ?Type sumatriptan succinate 100 mg 100 mg PO DAILY PRN MIGRAINE 06/02/17 Unknown History tablet (Imitrex) rabeprazole 20 mg tablet,delayed 20 mg PO DAILY GERD 30 days #30 05/07/22 04/09/24 Rx release (AcipHex) tabs dextroamphetamine-amphetamine 20 20 mg PO DAILY ADHD 12/10/23 04/09/24 History mg tablet (Adderall) multivitamin (Daily Multi-Vitamin 1 tab PO DAILY HEALTH MAINTENANCE 12/10/23 04/09/24 History tablet) budesonide 3 mg 6 mg (2 x 3 mg) PO DAILY CROHNS 12/18/23 04/09/24 Rx capsule,delayed,extended release DISEASE #60 ea Diltiazem 10mg/Lidocaine 50mg 1 supp [place] BID 21 days #30 supp 03/23/24 Unknown Rx Suppository 30 supp suppository Hydrocortisone 2.5% / Lidocaine 5% #1 ea 03/23/24 Unknown Rx ointment (cmpd) (Hydrocortisone 2.5%/lidocaine 5% ointment (compound)) lisdexamfetamine 70 mg capsule 70 mg PO DAILY ADHD 03/24/24 04/09/24 History (Vyvanse) Allergy/AdvReac Type Severity Reaction Status Date / Time amoxicillin Allergy Hives Verified 04/09/24 15:12 Sulfa (Sulfonamide Allergy Hives Verified 04/09/24 15:12 Antibiotics) sulfamethoxazole (From Allergy Hives Verified 04/09/24 15:12 Septra) trimethoprim (From ) Allergy Hives Verified 04/09/24 15:12 Surgical History Hx of vasectomy Social History Smoking Status: Never smoker ROS Constitutional Constitutional: Denies chills, fatigue, fever(s) or weakness Cardiovascular Cardiovascular: Denies chest pain Respiratory/Chest Respiratory/Chest: Denies shortness of breath at rest Gastrointestinal Gastrointestinal: Reports hematochezia; Denies abdominal pain, constipation, melena, nausea or vomiting Musculoskeletal Musculoskeletal: Denies arthralgias or myalgias Vital Signs Vital Signs Vital Signs: 04/09/24 15:08 04/09/24 15:54 04/09/24 17:07 Temperature 96.5 F L Temperature Source Temporal Pulse Rate 110 H 94 75 Pulse Rate [Lying] Pulse Rate [Sitting (for 1 minute prior to obtaining)] Pulse Rate [Standing (for 1 minute prior to obtaining)] Respiratory Rate 16 18 15 Blood Pressure 140/97 H 125/89 H 151/83 H Blood Pressure [Lying] Blood Pressure [Sitting (for 1 minute prior to obtaining)] Blood Pressure [Standing (for 1 minute prior to obtaining)] Blood Pressure Mean 111 101 105 Blood Pressure Mean [Lying] Blood Pressure Mean [Sitting (for 1 minute prior to obtaining)] Blood Pressure Mean [Standing (for 1 minute prior to obtaining)] Pulse Ox 98 98 99 Oxygen Delivery Method Room Air Room Air Room Air 04/09/24 17:07 04/09/24 19:00 Temperature Temperature Source Pulse Rate 72 Pulse Rate [Lying] 83 Pulse Rate [Sitting (for 1 minute prior to obtaining)] 83 Pulse Rate [Standing (for 1 minute prior to obtaining)] 102 H Respiratory Rate 25 H Blood Pressure 142/85 H Blood Pressure [Lying] 141/79 H Blood Pressure [Sitting (for 1 minute prior to obtaining)] 151/83 H Blood Pressure [Standing (for 1 minute prior to obtaining)] 106/68 Blood Pressure Mean 104 Blood Pressure Mean [Lying] 99 Blood Pressure Mean [Sitting (for 1 minute prior to obtaining)] 105 Blood Pressure Mean [Standing (for 1 minute prior to obtaining)] 80 Pulse Ox 98 Oxygen Delivery Method Room Air Weight Weight: 89.811 kg Body Mass Index (BMI) 31.9 Physical Exam Const alert, oriented x3 and no apparent distress Constitutional Narrative: Pleasant younger male, healthy appearing, sitting up comfortably in bed, conversing normally, in no acute distress. General Appearance: cooperative and comfortable HEENT normocephalic, head/scalp atraumatic, hearing grossly normal bilaterally, nasal mucous membranes and turbinates normal and moist oral mucous membranes Eyes PERRL, EOMs intact bilaterally and conjunctivae normal Neck full ROM Chest inspection of chest normal Resp normal respiratory effort, normal air movement, no use of accessory muscles and clear to auscultation bilaterally Cardio regular rate, regular rhythm, no murmurs and peripheral pulses 2+ throughout GI normal to inspection, nondistended, normoactive bowel sounds, soft to palpation, non-tender and non-distended Back/Spine normal ROM Extremity normal to inspection, full ROM and no pedal edema Skin no rashes or lesions noted Psych mental status grossly normal Results Lab / Micro Data 04/10/24 05:18 04/10/24 05:18 Labs: Laboratory Results - last 24 hr 04/09/24 16:03: Sodium 138, Potassium 3.6, Chloride 106, Carbon Dioxide 26.0, Anion Gap 5, BUN 10, Creatinine 1.16, Estim Creat Clear Calc 92.40, Est GFR (MDRD) Af Amer 91, Est GFR (MDRD) Non-Af 75, BUN/Creatinine Ratio 8.6 L, Glucose 101, Calcium 9.3 04/09/24 17:08: Blood Type O NEGATIVE, Antibody Screen NEGATIVE 04/09/24 18:22: WBC 8.0, RBC 4.73, Hgb 13.3, Hct 40.2, MCV 85.0, MCH 28.1, MCHC 33.1, RDW Std Deviation 41.5, RDW Coeff of George 13.3, Plt Count 301, MPV 10.0 Imaging Radiology Impression Abdomen/Pelvis CTA 04/09/24 16:58 IMPRESSION: Possible nonspecific colitis or rectosigmoid mass. Recommend follow-up with rectal contrast. This may also represent hemorrhage. Electronically Signed: Jet Lam MD at 18:52 EST , Assessment & Plan Assessment/Plan (1) Acute lower gastrointestinal bleeding: PLAN: Plan Patient is a 38-year-old male who presented [facility] ED on 04/09/2024 with bright red bloody stools. 1. Bright red bloody stools; history of diverticulosis and recent diagnosis of proctalgia fugax s/p Botox injection ? Admit under inpatient status to PCU. General surgery consulted. Painless bright red stools seen most consistent with diverticular bleed versus possible hemorrhoidal bleed. N.p.o. at midnight with plan for sigmoidoscopy tomorrow. Hemoglobin stable at 13, follow-up a.m. CBC. 2. GERD ? Stable. Continue home PPI. 3. ADHD ? Continue home medications. DVT prophylaxis: Low risk, ambulate CODE STATUS: Full code, verified Expected disposition: Home, 2 to 3 days Total clinical time spent by myself addressing the patient's medical issues, reviewing all the data, and collaborating with patient's care team: 55 minutes. Charges/Coding Visit Charges Inpatient E&M: 43173 Init Hosp L2
[2024-04-09] MEDS: Ondansetron 4 MG/2 ML Vial IV (20:30)
[2024-04-09 20:59] LABS: Hematocrit 40.4 % (40-54); Hemoglobin 13.6 g/dL (13.0-16.5)
[2024-04-09 21:00] VITALS: BP 115/77; PULSE 72; RESP 27; TEMP 36.8; O2SAT 98
[2024-04-09 23:32] VITALS: BMI 32.1
[2024-04-10] VITALS (15 sets, daily range): BP systolic 93–132; BP diastolic 46–83; PULSE 56–109; RESP 16–18; TEMP 36.6–36.9; O2SAT 92–98
--- NOTE | 2024-04-10 00:52 | PCM.HOSP.N ---
Hospitalist Note Patient presented today with 3 bright red bloody stools this afternoon at home. Denies any pain with the stools. He reports essentially no stool with these bowel movements, only blood. Has had blood tinged stools in the past but never overt blood in stools like this before. Patient has had ongoing lower GI issues since September. Colonoscopy in November showed diverticulosis in the rectosigmoid, sigmoid and descending colon but no other concerning findings. He then developed severe rectal pain at the end of February. CT abdomen pelvis ruled out rectal abscess. Dr. Aguayo suspected his symptoms could be related to proctalgia fugax, and he underwent sigmoidoscopy on 03/25 with Botox injection into the levator ani muscle. He also started hydrocortisone/lidocaine cream and suppositories after that. Patient noted that he had good improvement in his pain after that and was doing well until earlier today when he had these bright red bloody bowel movements. On arrival to the ED he was hemodynamically stable and afebrile. Initial hemoglobin was 14.6. CTA abdomen pelvis showed possible nonspecific colitis versus area of hemorrhage. Underwent a anoscopy with the ED physician and had significant blood with clots that came out. Repeat hemoglobin was 13.3 about 3 hours after first hemoglobin was drawn. Patient and notably reported having a poor experience with Dr. Aguayo unfortunately and requested a second opinion from surgery. Dr. Wagner was agreeable and is planning for repeat colonoscopy versus sigmoidoscopy tomorrow. Highest on current differential diagnosis is a diverticular bleed. Will watch patient closely overnight and have CBC drawn tomorrow morning. Full H&P to follow soon.
[2024-04-10 06:15] LABS: Hematocrit 41.6 % (40-54); Hemoglobin 13.9 g/dL (13.0-16.5); Mean Corp Hgb Conc 33.4 g/dL (32-36); Mean Corpuscular Hgb 28.5 pg (27.0-32.0); Mean Corpuscular Volume 85.2 fL (80-94); Mean Platelet Vol. 10.2 fl (6.2-12.0); Platelet Count 326 K/mm3 (150-450); RBC Distribution Width CV 13.5 % (11.6-14.6); RBC Distribution Width SD 42.2 fl (35.1-43.9); Red Blood Count 4.88 M/mm3 (4.6-6.2); White Blood Count 7.9 K/mm3 (4.4-11.0)
[2024-04-10 06:45] LABS: Anion Gap 7 (5-15); BUN 11 mg/dL (7-18); BUN/Creat Ratio 9.6 RATIO (10-20); Calcium,Total 9.2 mg/dL (8.5-10.1); Chloride 107 mmol/L (98-107); Creatinine, Serum 1.15 mg/dL (0.70-1.30); EST Glomerular Filtration Rate 76 mL/min (>60); Est Glom Filt Rate - Afr Amer 92 mL/min (>60); Estimated Creatinine Clearance 93.52 ml/min; Glucose 105 mg/dL (74-106); Sodium Level 139 mmol/L (136-145)
--- NOTE | 2024-04-10 08:43 | EX.PCM.CON.S ---
Assessment & Plan Assessment/Plan (1) Acute lower gastrointestinal bleeding: PLAN: The patient is a 38-year-old male with a history of recent blood per rectum. He recently underwent a flexible sigmoidoscopy and Botox injection for fissure about 2 weeks ago. He also had a colonoscopy back in November which was pretty unremarkable. Nevertheless he had increased blood per rectum along with clot yesterday. He presented to the emergency room. I was asked as a second opinion to evaluate the blood per rectum. I have offered him rectal exam under anesthesia/flexible sigmoidoscopy. He wished to proceed. This will begin momentarily HPI Consult Data Date of Consult: 04/10/24 HPI Narrative Reason for Consultation: Rectal bleeding HPI Narrative: MARIAN HAMILTON, is a 38 M who presented overnight to the emergency department with blood per rectum. It sounds as though this is a recent problem for him at least since September of this year. 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 His last intervention was 2 weeks ago when he had what sounds to be a flexible sigmoidoscopy as well as Botox injection to a anal fissure. It sounds as though he may have had something performed to internal hemorrhoids as well. This was performed here at [facility] by Dr. Aguayo. It sounds as though he was doing very well for the past 2 weeks only to then have 3 recent bloody bowel movements with clot within the past few days. He presented to the emergency room where he was seen and evaluated. Gross blood was noted by ER staff. Hemoglobin remained stable. Patient quested a second opinion and so I was contacted by the ER staff to consult on this case. This morning patient is doing well. PENDING SALE TO [facility] Medical History Diverticulosis Carrington esophagus Wears glasses Wears contact lenses Kidney stones Migraine headache Injury of head and neck Gastric reflux Chewing tobacco dependence Asthma History of stress test Hemorrhoids Traumatic brain injury Left ankle instability Hypercholesteremia Vasectomy evaluation ADHD Tobacco use GERD (gastroesophageal reflux disease) Lab test negative for COVID-19 virus Home Medications ?Medication ?Instructions ?Recorded ?Last Taken ?Type sumatriptan succinate 100 mg 100 mg PO DAILY PRN MIGRAINE 06/02/17 Unknown History tablet (Imitrex) rabeprazole 20 mg tablet,delayed 20 mg PO DAILY GERD 30 days #30 05/07/22 04/09/24 Rx release (AcipHex) tabs dextroamphetamine-amphetamine 20 20 mg PO DAILY ADHD 12/10/23 04/09/24 History mg tablet (Adderall) multivitamin (Daily Multi-Vitamin 1 tab PO DAILY HEALTH MAINTENANCE 12/10/23 04/09/24 History tablet) budesonide 3 mg 6 mg (2 x 3 mg) PO DAILY CROHNS 12/18/23 04/09/24 Rx capsule,delayed,extended release DISEASE #60 ea Diltiazem 10mg/Lidocaine 50mg 1 supp [place] BID 21 days #30 supp 03/23/24 Unknown Rx Suppository 30 supp suppository Hydrocortisone 2.5% / Lidocaine 5% #1 ea 03/23/24 Unknown Rx ointment (cmpd) (Hydrocortisone 2.5%/lidocaine 5% ointment (compound)) lisdexamfetamine 70 mg capsule 70 mg PO DAILY ADHD 03/24/24 04/09/24 History (Vyvanse) Allergy/AdvReac Type Severity Reaction Status Date / Time amoxicillin Allergy Hives Verified 04/09/24 15:12 Sulfa (Sulfonamide Allergy Hives Verified 04/09/24 15:12 Antibiotics) sulfamethoxazole (From Allergy Hives Verified 04/09/24 15:12 Septra) trimethoprim (From ) Allergy Hives Verified 04/09/24 15:12 Surgical History Hx of vasectomy Social History Smoking Status: Never smoker Physical Exam Const alert, oriented x3 and no apparent distress Lab / Micro Data 04/10/24 05:18 04/10/24 05:18 Labs: Laboratory Results - last 24 hr 04/09/24 16:03: Sodium 138, Potassium 3.6, Chloride 106, Carbon Dioxide 26.0, Anion Gap 5, BUN 10, Creatinine 1.16, Estim Creat Clear Calc 92.40, Est GFR (MDRD) Af Amer 91, Est GFR (MDRD) Non-Af 75, BUN/Creatinine Ratio 8.6 L, Glucose 101, Calcium 9.3 04/09/24 17:08: Blood Type O NEGATIVE, Antibody Screen NEGATIVE 04/09/24 18:22: WBC 8.0, RBC 4.73, Hgb 13.3, Hct 40.2, MCV 85.0, MCH 28.1, MCHC 33.1, RDW Std Deviation 41.5, RDW Coeff of George 13.3, Plt Count 301, MPV 10.0 04/09/24 20:54: Hgb 13.6, Hct 40.4 04/10/24 05:18: WBC 7.9, RBC 4.88, Hgb 13.9, Hct 41.6, MCV 85.2, MCH 28.5, MCHC 33.4, RDW Std Deviation 42.2, RDW Coeff of George 13.5, Plt Count 326, MPV 10.2, Sodium 139, Potassium 4.0, Chloride 107, Carbon Dioxide 25.0, Anion Gap 7, BUN 11, Creatinine 1.15, Estim Creat Clear Calc 93.52, Est GFR (MDRD) Af Amer 92, Est GFR (MDRD) Non-Af 76, BUN/Creatinine Ratio 9.6 L, Glucose 105, Calcium 9.2 Imaging Radiology Impression Abdomen/Pelvis CTA 04/09/24 16:58 IMPRESSION: Possible nonspecific colitis or rectosigmoid mass. Recommend follow-up with rectal contrast. This may also represent hemorrhage. Electronically Signed: Jet Lam MD at 18:52 EST , Charges/Coding Visit Charges Inpatient E&M: 74036 Init Hosp L3
[2024-04-10] MEDS: Fleet Enema 133 ML RC (09:01)
--- NOTE | 2024-04-10 09:55 | PCM.PRE.AN2 ---
ASA Classification* ASA Classification ASA Classification: 2 Assessment & Plan Anesthesia* Anesthesia Assessment Anesthesia Assessment: Discussed sedation and/or anesthesia options, risks, benefits, and alternatives with patient/parents/legal guardian/POA. Questions invited. The patient/parents/legal guardian/POA seems to understand and agrees to proceed with anesthesia plan. Reviewed the physical assessment, medical history, allergy history and patient home medications list prior to surgery/procedure/anesthetic and documented any changes. Performed airway and anesthesia risk assessments. Anesthesia Type Anesthesia Type: MAC Anesthesia Focused Assessment* Temperature: 98.4 F Pulse Rate: 86 Blood Pressure: 132/83 Respiratory Rate: 16 Pulse Ox: 95 Airway Assessment Mouth opens: >3 cm Mallampati Score: II Focused Labs Anesthesia Preop lab: CBC WBC 7.9 K/mm3 (4.4-11.0) 04/10/24 05:18 RBC 4.88 M/mm3 (4.6-6.2) 04/10/24 05:18 Hgb 13.9 g/dL (13.0-16.5) 04/10/24 05:18 Hct 41.6 % (40-54) 04/10/24 05:18 Plt Count 326 K/mm3 (150-450) 04/10/24 05:18 CHEMISTRY Potassium 4.0 mmol/L (3.5-5.1) 04/10/24 05:18 Sodium 139 mmol/L (136-145) 04/10/24 05:18 BUN 11 mg/dL (7-18) 04/10/24 05:18 Creatinine 1.15 mg/dL (0.70-1.30) 04/10/24 05:18 Glucose 105 mg/dL (74-106) 04/10/24 05:18 TSH 1.88 uIU/mL (0.358-3.74) 11/19/23 12:13 COAG PT 12.0 SECONDS (11.7-14.9) 03/24/24 13:53 Pre-Assessment Diagnosis/Proposed Procedure Planned Operative Procedure(s): EUA Rectal, flexible Sigmoidoscopy Anesthesia History 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 When Was Last Pacemaker Check QUESTION #4 FULL TEXT: You/Your Family Experience fever (hyperthermia) with Anesthesia Last Oral Intake Last Oral intake: Last Oral Intake NPO since Meds taken in AM with sips of water? Meds patient instructed to take am of surgery PONV PONV - commercial fisher: PONV - commercial fisher Female HX of Motion Sickness HX of N/V After Surgery Non-Smoker Duration of Surgery greater than 60 minutes Number of Risk Factors PONV Score Height & Weight Height & Weight: Anesthesia: Height & Weight Height 5 ft 6 in 04/10/24 09:03 Weight: 90.446 kg 04/10/24 09:03 Body Mass Index (BMI) 32.1 04/09/24 23:32 Respiratory Assessment Respiratory Assessment - commercial fisher: Respiratory Tract Infection Hx - commercial fisher Hx Respiratory Tract Infection No 03/25/24 12:35 STOP Sleep Apnea STOP Sleep Apnea - commercial fisher: STOP Sleep Apnea - commercial fisher Hx Hypertension No 04/09/24 23:32 Hx Sleep Apnea No 04/09/24 23:32 CPAP BIPAP Do you snore loudly (louder No 04/09/24 23:32 than talking or can be heard Do you often feel tired/ No 04/09/24 23:32 fatigued/ sleepy during daytime? Has anyone observed you stop No 04/09/24 23:32 breathing during sleep? STOP Results Negative 04/09/24 23:32 QUESTION #5 FULL TEXT : Do you snore loudly (louder than talking or can be heard through closed doors)? 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 Specify any problems Hx of Preganancy in last 3 N/A 04/09/24 23:32 Months Nurse Filling Out Transfusion LFORREST 04/09/24 23:32 & Questions: Date: 04/09/24 04/09/24 23:32 Time: 23:37 04/09/24 23:32 Patient unable to answer at this time (ie. confused, unrespo /Reproduction History /Reproductive History - commercial fisher: /Reproductive Hx- commercial fisher Hx Now Gestational Age (in weeks): EDC: Hx Hx Para Hx Section SAB Active Medications Active Medications: Current Medications Generic Name Dose Route Start Last Admin Trade Name Freq PRN Reason Stop Dose Admin Acetaminophen 650 mg 04/09/24 23:25 Acetaminophen 325 Mg Tablet PO Q6H PRN PRN Pain 1-10 Or Fever>100.7 Clarify Med Order 1 each 04/09/24 23:45 04/10/24 00:07 Clarify Order NOTE Not Given CLARIFY DANNY Sodium Chloride 500 mls @ 15 mls/hr 04/09/24 23:41 IV .[id number] PRN Saline Flush Sodium Chloride 500 mls @ 15 mls/hr 04/09/24 23:41 IV .[id number] PRN Additional IVPB Infusion Melatonin 3 mg 04/09/24 23:25 Melatonin 3 Mg Tablet PO QHS PRN PRN INSOMNIA Non-Formulary Medication 20 mg 04/10/24 10:00 Dextroamphetamine-Amphetamine [Adderall] PO DAILY DANNY Non-Formulary Medication 70 mg 04/10/24 10:00 Lisdexamfetamine [Vyvanse] PO DAILY DANNY Ondansetron HCl 4 mg 04/09/24 23:25 Ondansetron 4 Mg/2 Ml Vial IV Q8H PRN PRN NAUSEA/VOMITING Sodium Chloride 10 - 40 ml 04/09/24 23:41 0.9% Saline Lock 10 Ml Syringe IV UD PRN SALINE FLUSH PFSH Medical History Diverticulosis Carrington esophagus Wears glasses Wears contact lenses Kidney stones Migraine headache Injury of head and neck Gastric reflux Chewing tobacco dependence Asthma History of stress test Hemorrhoids Traumatic brain injury Left ankle instability Hypercholesteremia Vasectomy evaluation ADHD Tobacco use GERD (gastroesophageal reflux disease) Lab test negative for COVID-19 virus Home Medications ?Medication ?Instructions ?Recorded ?Last Taken ?Type sumatriptan succinate 100 mg 100 mg PO DAILY PRN MIGRAINE 06/02/17 Unknown History tablet (Imitrex) rabeprazole 20 mg tablet,delayed 20 mg PO DAILY GERD 30 days #30 05/07/22 04/09/24 Rx release (AcipHex) tabs dextroamphetamine-amphetamine 20 20 mg PO DAILY ADHD 12/10/23 04/09/24 History mg tablet (Adderall) multivitamin (Daily Multi-Vitamin 1 tab PO DAILY HEALTH MAINTENANCE 12/10/23 04/09/24 History tablet) budesonide 3 mg 6 mg (2 x 3 mg) PO DAILY CROHNS 12/18/23 04/09/24 Rx capsule,delayed,extended release DISEASE #60 ea Diltiazem 10mg/Lidocaine 50mg 1 supp [place] BID 21 days #30 supp 03/23/24 Unknown Rx Suppository 30 supp suppository Hydrocortisone 2.5% / Lidocaine 5% #1 ea 03/23/24 Unknown Rx ointment (cmpd) (Hydrocortisone 2.5%/lidocaine 5% ointment (compound)) lisdexamfetamine 70 mg capsule 70 mg PO DAILY ADHD 03/24/24 04/09/24 History (Vyvanse) Allergy/AdvReac Type Severity Reaction Status Date / Time amoxicillin Allergy Hives Verified 04/09/24 15:12 Sulfa (Sulfonamide Allergy Hives Verified 04/09/24 15:12 Antibiotics) sulfamethoxazole (From Allergy Hives Verified 04/09/24 15:12 Septra) trimethoprim (From Janra) Allergy Hives Verified 04/09/24 15:12 Surgical History Hx of vasectomy Social History Smoking Status: Never smoker Review of Systems (Anesthesia) ROS Narrative System reviewed and no additional complaints, except as documented.
--- NOTE | 2024-04-10 12:55 | PCM.POST.ANE ---
Anesthesia: Postop Eval I Current Vital Signs Temperature: 98.3 F Pulse Rate: 96 Blood Pressure: 114/65 Respiratory Rate: 16 Pulse Ox: 96 Oxygen Delivery Method: Room Air Assessment Airway patent: Yes Spontaneous unlabored respirations: Yes Mental status: Awake and Calm nausea: No Vomiting: No Anesthesia Complication: No Fluid Hydration Crystalloid volume administer (ml): 10 Total IV fluid infused: 10 Progress Note Anesthesia document: Postop Eval 1 completed: Yes
--- NOTE | 2024-04-10 12:57 | PCM.OPRPT ---
Problems Associated Problem List Diagnoses (1) Acute lower gastrointestinal bleeding: Operative Report (Standard) Operative Information Surgery/Procedure Performed: 1. Rectal exam under anesthesia 2. Flexible sigmoidoscopy Surgeon: Blu Wagner Date of Procedure: 04/10/24 Procedure Start Time: 12:13 Procedure Stop Time: 12:47 Pre-Operative Diagnosis: GI bleed Post-Operative Diagnosis: Same Select all DRAINS/GRAFTS/IMPLANTS that apply: None Type of Anesthesia: MAC Estimated Blood Loss: None Specimen collected: No Description of surgery: The patient is a 38-year-old male who presented overnight to the emergency department with blood per rectum. He has been having episodes of blood per rectum since September. He underwent colonoscopy in November without an obvious cause. He underwent a flexible sigmoidoscopy about 2 weeks ago along with Botox injection for anal pain. Patient was admitted and wanted a second opinion and so a general surgery consult was obtained. I suspect that his bleeding initially was anal rectal or sigmoid in nature and so I offered to perform a flexible sigmoidoscopy along with a rectal exam under anesthesia and he wished to proceed. He was brought to the operating room today following informed consent. Timeout was performed. He was placed supine on the operative table. MAC anesthesia was induced. Once adequately anesthetized his legs were placed in a modified lithotomy position. Rectal exam was performed. He did have some moderate external hemorrhoids and a small posterior fissure but these did not seem to be causing any bleeding. Once digital rectal exam was performed a copious amount of dark red blood and clot drained out. At this point we proceeded with the insertion of the colonoscope. Upon entry there was a copious amount of blood in the rectum along with clot. I very cautiously advance the scope irrigating and suctioning as we advance. I was able to advance the scope to about 80 to 90 cm at this point I encountered a copious amount of clot and stool which really precluded any further advancement of the scope. At this point I slowly withdrew the scope irrigating and sucking as much clot out as possible. No readily apparent source was identified. Based on the appearance I would suspect either diverticular source or even an upper GI source as a another possibility. The scope was eventually withdrawn and the patient was awakened anesthesia. Would recommend continued close observation and fluid resuscitation. If he remains clinically stable he would probably benefit from bowel prep and another attempt at colonoscopy and possibly even EGD as well. It is important to note that no obvious acute source of bleeding was noted however most of the blood was old appearing with clot. 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
[2024-04-10 13:40] LABS: Hematocrit 43.1 % (40-54); Hemoglobin 14.3 g/dL (13.0-16.5)
--- NOTE | 2024-04-10 14:25 | CASEMGMT ---
RN DUANE TOBACCO CLASSER CM?to room to meet with patient for initial transition planning/care coordination assessment. RN CM?introduced self and role at [facility]. Pt voices understanding and consents to assessment?at this time. Pt resting in bed in no distress at this time. @ bedside. Pt is A/O at this time and answers all questions appropriately. Care providers, pharmacy, and demographics verified/updated at this time. Strata:?2 PCP: Dr Michel Specialists: Dr Aguayo-GI. Dr Koko Anguiano-colorectal surgeon @ [facility]- pt has 1st appt scheduled w/Dr Anguiano 05/19. Preferred Pharmacy: [facility] Retail Insurance: [employer] Prescription Benefit: yes LNOK: , Ana Living Arrangements: Lives w/ and 2 kids. Independent. Transportation:Pt and both drive. DME: Denies using any DME and denies needs. HHC/SNF: No hx of either. No needs identified. Pt wishes to return home and states has no concerns with going home at time of discharge. Pt and voice no concerns/needs at this time. PLAN: Home Gilberto MAYFIELD RN, CM
[2024-04-10] MEDS: Lactated Ringers 1,000 ML 999 ML IV (14:31)
--- NOTE | 2024-04-10 14:55 | CHAPLAIN ---
Type of Pastoral Visit ___ Initial Visit ___ Follow-up Visit ___ On-call Visit ___ General Patient Visit ___ Spiritual Assessment ___ Family Conference ___ Bereavement ___ Rapid Response ___ Code Blue ___ Other (describe below) Pastoral Care Referral From ___ Patient ___ Family ___ Nurse ___ Physician ___ Collection Team Lead ___ Juice Packaging Machines Setter ___ Other (describe below) Sacrament/Intervention ___ Active listening ___ Anointing ___ Sabianism ___ Bereavement ___ Communion ___ Faby exploration ___ ___ Life review ___ Prayer ___ Reconciliation ___ Sacrament of Sick ___ Supportive presence ___ Wedding ___ Other (describe below) Pastoral Comments patient and bed were out of the room; left a calling card
--- NOTE | 2024-04-10 15:13 | PCM.PN.BLA ---
Progress Note 38-year-old male with lower GI bleed which I suspect is most likely diverticular in nature. Further review of his chart reveals that he underwent an EGD earlier this year at the time of his colonoscopy. Patient is extremely young to have issues with ischemic colitis making this diagnosis very unlikely. Statistically diverticular bleeds would be the most common cause for such bleed. At this point I would recommend continued observation and fluids. His H&H seems rather stable. If he continues to remain stable, and might be best for him to be discharged home and follow-up as an outpatient for colonoscopy which might allow him to have further time to recover from this hospitalization. This was discussed with hospitalist as well. Will also discuss further with patient and
[2024-04-10] MEDS: Ondansetron 4 MG/2 ML Vial IV (16:30)
[2024-04-10] MEDS: 0.9% Saline Lock 10 ML Syringe IV (16:30)
--- NOTE | 2024-04-10 16:31 | POSTOPAN2_ITS ---
Anesthesia Postop Eval I Sum Postop Eval Completion status Anesthesia document: Postop Eval 1 completed: Yes Anesthesia Postop Eval I Summary Anesthesia Postop Eval I Summary: Anesthesia Postop Eval I: Assessment Summary Airway patent Yes 04/10/24 12:58 [email or web address] Spontaneous unlabored Yes 04/10/24 12:58 [email or web address] respirations Mental status Awake,Calm 04/10/24 12:58 [email or web address] nausea No 04/10/24 12:58 [email or web address] Vomiting No 04/10/24 12:58 [email or web address] Mary Anesthesia Postop Eval I: Fluid Summary Crystalloid volume administer 10 04/10/24 12:58 [email or web address] (ml) Colloids volume administered ( ml) Blood Product volume administered (ml) Total IV fluid infused 10 04/10/24 12:58 [email or web address] Anesthesia Postop Eval I: Summary Notes Anesthesia Complication No 04/10/24 12:58 [email or web address] Anesthesia Complication Comment: Post-operative progress note Anesthesia: Postop Eval II Evaluation Mental status: Awake and Calm Pain Level: 0 nausea: No Vomiting: No Complications Anesthesia Complication: No
--- NOTE | 2024-04-10 16:31 | PCM.POSTANE2 ---
Anesthesia Postop Eval I Sum Postop Eval Completion status Anesthesia document: Postop Eval 1 completed: Yes Anesthesia Postop Eval I Summary Anesthesia Postop Eval I Summary: Anesthesia Postop Eval I: Assessment Summary Airway patent Yes 04/10/24 12:58 [email or web address] Spontaneous unlabored Yes 04/10/24 12:58 [email or web address] respirations Mental status Awake,Calm 04/10/24 12:58 [email or web address] nausea No 04/10/24 12:58 [email or web address] [email or web address] Vomiting No 04/10/24 12:58 PEARL [email or web address] Mary Anesthesia Postop Eval I: Fluid Summary Crystalloid volume administer 10 04/10/24 12:58 [email or web address] (ml) Colloids volume administered ( ml) Blood Product volume administered (ml) Total IV fluid infused 10 04/10/24 12:58 PEARL [email or web address] Mary Anesthesia Postop Eval I: Summary Notes Anesthesia Complication No 04/10/24 12:58 PEARL [email or web address] Mary Anesthesia Complication Comment: Post-operative progress note Anesthesia: Postop Eval II Evaluation Mental status: Awake and Calm Pain Level: 0 nausea: No Vomiting: No Complications Anesthesia Complication: No
--- NOTE | 2024-04-10 16:39 | PCM.PN.HOSP ---
Subjective Subjective Doing well, no issues overnight Objective Data Objective Data Vital Signs: Vital Signs Temp Pulse Resp BP Pulse Ox O2 Del Method 97.8 F 65 18 119/71 94 Room Air 04/10/24 16:14 04/10/24 16:14 04/10/24 16:14 04/10/24 16:14 04/10/24 14:12 04/10/24 14:12 Oxygen Delivery Method Room Air Weight: 199 lb 6.389 oz Body Mass Index (BMI) 32.1 Intake & Output: Intake and Output for Last 24 Hours 04/09/24 04/10/24 04/11/24 03:59 03:59 03:59 Intake Total 1100 / 1100 Output Total 200 / 200 500 / 500 Balance -200 / -200 600 / 600 Lab / Micro Data 04/10/24 13:20 04/10/24 05:18 Labs: Laboratory Results - last 24 hr 04/09/24 17:08: Blood Type O NEGATIVE, Antibody Screen NEGATIVE 04/09/24 18:22: WBC 8.0, RBC 4.73, Hgb 13.3, Hct 40.2, MCV 85.0, MCH 28.1, MCHC 33.1, RDW Std Deviation 41.5, RDW Coeff of George 13.3, Plt Count 301, MPV 10.0 04/09/24 20:54: Hgb 13.6, Hct 40.4 04/10/24 05:18: WBC 7.9, RBC 4.88, Hgb 13.9, Hct 41.6, MCV 85.2, MCH 28.5, MCHC 33.4, RDW Std Deviation 42.2, RDW Coeff of George 13.5, Plt Count 326, MPV 10.2, Sodium 139, Potassium 4.0, Chloride 107, Carbon Dioxide 25.0, Anion Gap 7, BUN 11, Creatinine 1.15, Estim Creat Clear Calc 93.52, Est GFR (MDRD) Af Amer 92, Est GFR (MDRD) Non-Af 76, BUN/Creatinine Ratio 9.6 L, Glucose 105, Calcium 9.2 04/10/24 13:20: Hgb 14.3, Hct 43.1 Radiography Diagnostic Testing: Radiology Impression Abdomen/Pelvis CTA 04/09/24 16:58 IMPRESSION: Possible nonspecific colitis or rectosigmoid mass. Recommend follow-up with rectal contrast. This may also represent hemorrhage. Electronically Signed: Jet Lam MD at 18:52 EST , Physical Exam Narrative General: Alert, Oriented x3, Cooperative, No apparent distress HEENT: Atraumatic, PERRLA, EOMI, Normocephalic Oral: Moist Mucosa Neck: Supple, No JVD Lungs: Clear to auscultation, Normal air movement, No rhonchi, No wheeze, No rales Cardiovascular: Regular rate, Regular Rhythm, Normal S1, Normal S2, No murmurs Abdomen: Soft, Non Tender, Non-Distended, No Hepato-splenomegaly Extremities: No edema, Capillary Refill Less than 3 Seconds Skin: No rashes, No breakdown Musculoskeletal: No Tenderness to Palpation of Joints or Extremities Neurological: No focal neurological deficits, moves all extremities Psych/Mental Status: Normal Affect, Appropriate Assessment & Plan Assessment/Plan (1) Acute lower gastrointestinal bleeding: PLAN: Plan 1. Bright red blood per rectum/GERD ? This is painless therefore likely AVM versus diverticular bleed based on the CT scan showing multiple diverticulum ? Colonoscopy today was limited due to the lack of prep however they were able to get up to the splenic flexure and there was obvious bright red blood but no signs of active bleeding ? He described episodes of syncope and lightheadedness dizziness as well as nausea. BUN is normal and he had an EGD and a colonoscopy in November which demonstrated a little bit of Carrington's esophagus but otherwise no signs of active upper GI disease. ? Repeat CBC in the morning ? Continue with the PPI 2. ADHD ? Continue home medications. ? Stable DVT: Ambulation Charges/Coding Visit Charges Inpatient E&M: 28908 Subs Hosp L2
[2024-04-10] MEDS: CLARIFY ORDER 1 EACH NOTE (17:57)
[2024-04-10] MEDS: Acetaminophen 325 MG Tablet 650 MG PO (20:05)
--- NOTE | 2024-04-10 20:48 | PCM.HOSP.N ---
Hospitalist Note Contacted [facility] campus for transfer per family request. Discussed case with service and transfer line. Unfortunately given patient stability and bed availability there would be no bed available for > 2 weeks thus they recommended against transfer but specifically noted intention for quite expedited colorectal surgery visit outpatient at their facility. The physician on the transfer line made the referral in the [employer] system and sent a message as well in addition to an email directly to the colorectal surgeon sr. director product management of the department requesting this course of action. Discussed with the physician and the transfer line and they requested that patient/patient family call [phone] to set up this visit. This plan was discussed with the patient and voicemail was also left with his but recommended to wait until later in the day 04/11/2024 or given it is a weekend potentially might need to happen on a Saturday so that they could arrange this visit but also have the information back in time.
--- NOTE | 2024-04-10 22:11 | NURSING ---
The patient and his family would like a second opinion and were trying to get transferred to [facility]. Dr. Dorsey reached out to [facility] and because of his stable condition he would probably not get a room for two weeks. Dr. dorsey talked to their Colorectal surgical department and their psychiatric tech for that department is getting involved to get an expedited office visit. Their was number left for the family to call to set up appointment and it was recommended for them to call tomorrow or saturday. All of this information is in Dr. Morris progress note.
[2024-04-11 00:39] VITALS: BP 127/74; PULSE 77; RESP 18; TEMP 36.8; O2SAT 96
[2024-04-11 04:47] VITALS: BP 105/59; PULSE 69; RESP 18; TEMP 36.6; O2SAT 95
[2024-04-11 06:33] LABS: Absolute Lymphocyte Count 2.38 X10^3/uL (0.83-4.51); Absolute Neutrophil Count 8.6 X10^3/uL (2.0-7.7); Basophil# 0.05 X10^3/uL; Basophil% 0.4 % (0-1); Eosinophil# 0.11 X10^3/uL; Eosinophils% 0.9 % (0-5); Hematocrit 37.2 % (40-54); Hemoglobin 12.3 g/dL (13.0-16.5); Lymphocyte # 2.38 X10^3/ul (0.83-4.51); Lymphocyte % 19.7 % (19-41); Mean Corp Hgb Conc 33.1 g/dL (32-36); Mean Corpuscular Hgb 28.5 pg (27.0-32.0); Mean Corpuscular Volume 86.3 fL (80-94); Mean Platelet Vol. 9.9 fl (6.2-12.0); Monocyte# 0.87 X10^3/uL; Monocyte% 7.2 % (0-10); NRBC Flagged by Analyzer 0 % (0-5); Neutrophil # 8.64 X10^3/uL (2.7-7.7); Neutrophil % 71.3 % (47-70); Platelet Count 295 K/mm3 (150-450); RBC Distribution Width CV 13.4 % (11.6-14.6); Red Blood Count 4.31 M/mm3 (4.6-6.2); White Blood Count 12.1 K/mm3 (4.4-11.0)
[2024-04-11 07:23] VITALS: O2SAT 94
--- NOTE | 2024-04-11 09:03 | PN.SURG_ITS ---
Subjective Subjective Patient went to sigmoidoscopy yesterday showed the clot no obvious start of bleeding was found solid stool was found in the transverse. Patient hemoglobin did drop to 12.3. Patient denies any further bowel movements since the scope yesterday. Objective Data Objective Data Vital Signs: Vital Signs Temp Pulse Resp BP Pulse Ox O2 Del Method 97.8 F 69 18 105/59 L 94 Room Air 04/11/24 04:47 04/11/24 04:47 04/11/24 04:47 04/11/24 04:47 04/11/24 07:23 04/11/24 07:23 Oxygen Delivery Method Room Air Weight: 199 lb 6.389 oz Body Mass Index (BMI) 32.1 Intake & Output: Intake and Output for Last 24 Hours 04/09/24 04/10/24 04/11/24 23:59 23:59 23:59 Intake Total 1220 / 1220 700 / 700 Output Total 200 / 200 500 / 500 Balance -200 / -200 720 / 720 700 / 700 Lab / Micro Data 04/11/24 05:40 04/10/24 05:18 Labs: Laboratory Results - last 24 hr 04/10/24 13:20: Hgb 14.3, Hct 43.1 04/11/24 05:40: WBC 12.1 H, RBC 4.31 L, Hgb 12.3 L, Hct 37.2 L, MCV 86.3, MCH 28.5, MCHC 33.1, RDW Std Deviation 42.0, RDW Coeff of George 13.4, Plt Count 295, MPV 9.9, Immature Gran % (Auto) 0.500, Neut % (Auto) 71.3 H, Lymph % (Auto) 19.7, [place] % (Auto) 7.2, Eos % (Auto) 0.9, Baso % (Auto) 0.4, Absolute Neuts (auto) 8.6 H, Absolute Lymphs (auto) 2.38, Nucleated RBC % 0 Physical Exam Const oriented x3 and no apparent distress Resp normal respiratory effort Cardio regular rate GI soft to palpation and non-tender Inspection: Negative for abdominal distention Assessment & Plan Assessment/Plan (1) Acute lower gastrointestinal bleeding: PLAN: The patient is a 38-year-old male with a history of recent blood per rectum. Status post flexible sigmoidoscopy no obvious source was identified that likely diverticular as clot and dark blood was seen. PLAN: Plan Hemoglobin did go down to 12.3 will plan to recheck hemoglobin-- keep on clears today discussed with patient either outpatient scopes versus Saturday would be the soonest depending on how the hemoglobin trends. Patient plans to talk to his . Last night they were asking about possible transfer to [facility] which they are informed they would take 2 week if it were to happen. Stephenie Oliveira M.D. Pager: [phone] [facility] [address] [place] [address], [address] [place] [address] Office: [phone] Charges/Coding Visit Charges Inpatient E&M: 11906 Subs Hosp L2
[2024-04-11 09:33] VITALS: BP 122/76; PULSE 74; RESP 16; TEMP 36.5; O2SAT 97
--- NOTE | 2024-04-11 10:12 | PCM.PN.HOSP ---
Subjective Subjective Resting comfortably, no issues overnight. Hemoglobin dropped to 12.3 but he did receive a liter of fluids yesterday Objective Data Objective Data Vital Signs: Vital Signs Temp Pulse Resp BP Pulse Ox O2 Del Method 97.7 F L 74 16 122/76 H 97 Room Air 04/11/24 09:33 04/11/24 09:33 04/11/24 09:33 04/11/24 09:33 04/11/24 09:33 04/11/24 09:33 Oxygen Delivery Method Room Air Weight: 199 lb 6.389 oz Body Mass Index (BMI) 32.1 Intake & Output: Intake and Output for Last 24 Hours 04/10/24 04/11/24 04/12/24 03:59 03:59 03:59 Intake Total 1620 / 1620 300 / 300 Output Total 200 / 200 500 / 500 Balance -200 / -200 1120 / 1120 300 / 300 Lab / Micro Data 04/11/24 05:40 04/10/24 05:18 Labs: Laboratory Results - last 24 hr 04/10/24 13:20: Hgb 14.3, Hct 43.1 04/11/24 05:40: WBC 12.1 H, RBC 4.31 L, Hgb 12.3 L, Hct 37.2 L, MCV 86.3, MCH 28.5, MCHC 33.1, RDW Std Deviation 42.0, RDW Coeff of George 13.4, Plt Count 295, MPV 9.9, Immature Gran % (Auto) 0.500, Neut % (Auto) 71.3 H, Lymph % (Auto) 19.7, [place] % (Auto) 7.2, Eos % (Auto) 0.9, Baso % (Auto) 0.4, Absolute Neuts (auto) 8.6 H, Absolute Lymphs (auto) 2.38, Nucleated RBC % 0 Physical Exam Narrative General: Alert, Oriented x3, Cooperative, No apparent distress HEENT: Atraumatic, PERRLA, EOMI, Normocephalic Oral: Moist Mucosa Neck: Supple, No JVD Lungs: Clear to auscultation, Normal air movement, No rhonchi, No wheeze, No rales Cardiovascular: Regular rate, Regular Rhythm, Normal S1, Normal S2, No murmurs Abdomen: Soft, Non Tender, Non-Distended, No Hepato-splenomegaly Extremities: No edema, Capillary Refill Less than 3 Seconds Skin: No rashes, No breakdown Musculoskeletal: No Tenderness to Palpation of Joints or Extremities Neurological: No focal neurological deficits, moves all extremities Psych/Mental Status: Normal Affect, Appropriate Assessment & Plan Assessment/Plan (1) Acute lower gastrointestinal bleeding: PLAN: Plan 1. Bright red blood per rectum/GERD ? This is painless therefore likely AVM versus diverticular bleed based on the CT scan showing multiple diverticulum ? Colonoscopy on 04/10/2024 was limited due to the lack of prep however they were able to get up to the splenic flexure and there was obvious bright red blood but no signs of active bleeding ? He described episodes of syncope and lightheadedness dizziness as well as nausea. BUN is normal and he had an EGD and a colonoscopy in November which demonstrated a little bit of Carrington's esophagus but otherwise no signs of active upper GI disease. ?Repeat CBC hemoglobin of 12.3, could be somewhat dilutional secondary to the liter fluids received yesterday, will recheck an H&H this afternoon ? Continue with the PPI ? She does have a plan to follow-up with [facility] in expedited manner colorectal surgery evaluation. 2. ADHD ? Continue home medications. ? Stable DVT: Ambulation Charges/Coding Visit Charges Inpatient E&M: 12862 Subs Hosp L2
[2024-04-11 14:36] VITALS: BP 141/86; PULSE 81; RESP 16; TEMP 36.8; O2SAT 96
[2024-04-11 15:05] LABS: Hematocrit 38.2 % (40-54); Hemoglobin 12.4 g/dL (13.0-16.5)
[2024-04-11 21:30] VITALS: BP 129/94; PULSE 87; RESP 18; TEMP 36.6; O2SAT 96
[2024-04-12 06:10] VITALS: BP 125/64; PULSE 71; RESP 18; TEMP 36.5; O2SAT 98
[2024-04-12 07:24] VITALS: O2SAT 94
[2024-04-12] MEDS: Bisacodyl 5 MG Tablet 20 MG PO (08:53)
[2024-04-12 08:54] VITALS: BP 129/93; PULSE 74; RESP 16; TEMP 36.5; O2SAT 99
--- NOTE | 2024-04-12 09:32 | PCM.PN.SRG ---
Subjective Subjective No further bowel movements or bloody bowel movements. Objective Data Objective Data Vital Signs: Vital Signs Temp Pulse Resp BP Pulse Ox O2 Del Method 97.7 F L 74 16 129/93 H 99 Room Air 04/12/24 08:54 04/12/24 08:54 04/12/24 08:54 04/12/24 08:54 04/12/24 08:54 04/12/24 08:54 Oxygen Delivery Method Room Air Weight: 199 lb 6.389 oz Body Mass Index (BMI) 32.1 Intake & Output: Intake and Output for Last 24 Hours 04/10/24 04/11/24 04/12/24 23:59 23:59 23:59 Intake Total 1220 / 1220 2019 Output Total 500 / 500 Balance 720 / 720 2019 Lab / Micro Data 04/11/24 14:26 04/10/24 05:18 Labs: Laboratory Results - last 24 hr 04/11/24 14:26: Hgb 12.4 L, Hct 38.2 L Physical Exam Const oriented x3 and no apparent distress Resp normal respiratory effort Cardio regular rate GI soft to palpation and non-tender Inspection: Negative for abdominal distention Assessment & Plan Assessment/Plan (1) Acute lower gastrointestinal bleeding: PLAN: The patient is a 38-year-old male with a history of recent blood per rectum. Status post flexible sigmoidoscopy no obvious source was identified that likely diverticular as clot and dark blood was seen. PLAN: Plan Hemoglobin stable at 12.4. No further bloody bowel movement or bowel movements. Will start bowel prep today. Plan for an EGD and colonoscopy with Dr. Wagner tomorrow. Stephenie Oliveira M.D. Pager: [phone] [facility] [address] [place] [address], [facility], [address] [place] [address] Office: [phone] Charges/Coding Visit Charges Inpatient E&M: 32059 Subs Hosp L2
--- NOTE | 2024-04-12 10:50 | PCM.PN.HOSP ---
Subjective Subjective Will obtain lab work this morning. Resting comfortably Objective Data Objective Data Vital Signs: Vital Signs Temp Pulse Resp BP Pulse Ox O2 Del Method 97.7 F L 74 16 129/93 H 99 Room Air 04/12/24 08:54 04/12/24 08:54 04/12/24 08:54 04/12/24 08:54 04/12/24 08:54 04/12/24 08:54 Oxygen Delivery Method Room Air Weight: 199 lb 6.389 oz Body Mass Index (BMI) 32.1 Intake & Output: Intake and Output for Last 24 Hours 04/11/24 04/12/24 04/13/24 03:59 03:59 03:59 Intake Total 1620 / 1620 1620 / 1620 Output Total 500 / 500 Balance 1120 / 1120 1620 / 1620 Lab / Micro Data 04/11/24 14:26 04/10/24 05:18 Labs: Laboratory Results - last 24 hr 04/11/24 14:26: Hgb 12.4 L, Hct 38.2 L Physical Exam Narrative General: Alert, Oriented x3, Cooperative, No apparent distress HEENT: Atraumatic, PERRLA, EOMI, Normocephalic Oral: Moist Mucosa Neck: Supple, No JVD Lungs: Clear to auscultation, Normal air movement, No rhonchi, No wheeze, No rales Cardiovascular: Regular rate, Regular Rhythm, Normal S1, Normal S2, No murmurs Abdomen: Soft, Non Tender, Non-Distended, No Hepato-splenomegaly Extremities: No edema, Capillary Refill Less than 3 Seconds Skin: No rashes, No breakdown Musculoskeletal: No Tenderness to Palpation of Joints or Extremities Neurological: No focal neurological deficits, moves all extremities Psych/Mental Status: Normal Affect, Appropriate Assessment & Plan Assessment/Plan (1) Acute lower gastrointestinal bleeding: PLAN: Plan 1. Bright red blood per rectum/GERD ? This is painless therefore likely AVM versus diverticular bleed based on the CT scan showing multiple diverticulum ? Colonoscopy on 04/10/2024 was limited due to the lack of prep however they were able to get up to the splenic flexure and there was obvious bright red blood but no signs of active bleeding ? He described episodes of syncope and lightheadedness dizziness as well as nausea. BUN is normal and he had an EGD and a colonoscopy in November which demonstrated a little bit of Carrington's esophagus but otherwise no signs of active upper GI disease. ? Recheck of his H&H yesterday afternoon was stable at 12.4, forgot to order lab work for this morning so we will order a CBC this a.m. ? Continue with the PPI ? He does have a plan to follow-up with [facility] in expedited manner colorectal surgery evaluation. ? Will start with his bowel prep early this morning and make adjustments as necessary throughout the day 2. ADHD ? Continue home medications. ? Stable DVT: Ambulation Charges/Coding Visit Charges Inpatient E&M: 35613 Subs Hosp L2
[2024-04-12] MEDS: Polyethylene Glycol 3350 BOWEL PREP PO (11:26)
[2024-04-12 11:42] LABS: Absolute Lymphocyte Count 1.92 X10^3/uL (0.83-4.51); Absolute Neutrophil Count 3.8 X10^3/uL (2.0-7.7); Basophil# 0.06 X10^3/uL; Basophil% 0.9 % (0-1); Eosinophil# 0.13 X10^3/uL; Hematocrit 39.2 % (40-54); Hemoglobin 12.9 g/dL (13.0-16.5); Lymphocyte # 1.92 X10^3/ul (0.83-4.51); Lymphocyte % 28.9 % (19-41); Mean Corp Hgb Conc 32.9 g/dL (32-36); Mean Corpuscular Hgb 28.3 pg (27.0-32.0); Monocyte# 0.72 X10^3/uL; Monocyte% 10.8 % (0-10); NRBC Flagged by Analyzer 0 % (0-5); Neutrophil # 3.79 X10^3/uL (2.7-7.7); Neutrophil % 57.1 % (47-70); Platelet Count 324 K/mm3 (150-450); RBC Distribution Width CV 13.2 % (11.6-14.6); RBC Distribution Width SD 41.6 fl (35.1-43.9); Red Blood Count 4.56 M/mm3 (4.6-6.2); White Blood Count 6.6 K/mm3 (4.4-11.0)
[2024-04-12] MEDS: 0.9% Saline Lock 10 ML Syringe IV (13:07)
[2024-04-12] MEDS: Ondansetron 4 MG/2 ML Vial IV (13:07)
[2024-04-12 14:45] VITALS: BP 136/94; PULSE 86; RESP 14; TEMP 36.6; O2SAT 99
[2024-04-12 20:09] VITALS: BP 134/71; PULSE 87; RESP 18; TEMP 36.7; O2SAT 98
[2024-04-13] VITALS (12 sets, daily range): BP systolic 94–132; BP diastolic 60–88; PULSE 64–81; RESP 16–18; TEMP 36.4–36.7; O2SAT 95–100
--- NOTE | 2024-04-13 | GASB_PTH ---
PATIENT: MARIAN HAMILTON LOC: [facility] U#:[id number] AGE/SX: 38/M ROOM: [facility] RE04/09/[address]: Dr. Edilson Islas DO : 1985 BED: 1 DIS: 04/13/2024 SPEC #: [id number] RECD: 04/13/24 13:29 STATUS: DRU KING #: [id number] VIET: 04/13/24 00:[address]: Blu Wagner DEPT: SURGICAL PATHOLOGY RECD BY: Yoan Rico ENTERED: 04/13/24 13:29 SP TYPE: Gastric Bx OTHR DR: Dr. Rivera Banda, DO Dr. Edilson Islas, DO Dr. Saroj Michel, DO MD Dr. Blu Encarnacion MD Tissues: A - Gastric mucous membrane B - Gastric mucous membrane C - Rectum, NOS Procedures: Surgery Specimen Level IV Comments: @ Ordering doctor for SUIV edited from to @ by PALLAVI at 04/13/24 1331 @ Submitting doctor edited from to @ by PALLAVI at 04/13/24 1330 HEADER OPERATION: Colonoscopy, polypectomy, EGD with biopsy PRE-OP DIAGNOSIS: Acute lower gastrointestinal bleeding TISSUE SUBMITTED: A- Antrum biopsy, B- Gastroesophageal junction biopsy, C- Rectal polyp MICROSCOPIC DIAGNOSIS A. Antrum, biopsy: Gastric mucosa, no pathologic diagnosis. See comment. B. Gastroesophageal junction, biopsy: Squamous mucosa, no pathologic diagnosis. No evidence of Carrington's esophagus. No evidence of dysplasia. C. Rectal polyp, biopsy: Ulcerated inflammatory polyp. 04/14/2024 COMMENT A. The results of immunohistochemistry for Helicobacter pylori will be reported separately ([id number]). MICROSCOPIC DESCRIPTION Slides are reviewed. GROSS DESCRIPTION A. Received in fixative is one container labeled with the patient's name and designated Antrum biopsy. The specimen consists of one irregular fragment of wong soft tissue that measure 0.4cm in greatest dimension. The specimen is totally submitted in one cassette. B. Received in fixative is one container labeled with the patient's name and designated GE junction biopsy. The specimen consists of one irregular fragment of wong soft tissue that measures 0.3cm in greatest dimension. The specimen is totally submitted in one cassette. C. Received in fixative is one container labeled with the patient's name and designated Rectal polyp. The specimen consists of one irregular fragment of wong soft tissue that measures 0.3cm in greatest dimension The specimen is totally submitted in one cassette. [email or web address] 04/13/2024 TC:5 CPT:06947g7
[2024-04-13 06:57] LABS: Absolute Lymphocyte Count 2.15 X10^3/uL (0.83-4.51); Absolute Neutrophil Count 3.5 X10^3/uL (2.0-7.7); Basophil# 0.06 X10^3/uL; Basophil% 0.9 % (0-1); Eosinophil# 0.17 X10^3/uL; Eosinophils% 2.6 % (0-5); Hematocrit 38.5 % (40-54); Hemoglobin 12.7 g/dL (13.0-16.5); Lymphocyte # 2.15 X10^3/ul (0.83-4.51); Lymphocyte % 33.5 % (19-41); Mean Corpuscular Hgb 28.2 pg (27.0-32.0); Mean Corpuscular Volume 85.6 fL (80-94); Mean Platelet Vol. 9.9 fl (6.2-12.0); Monocyte# 0.56 X10^3/uL; Monocyte% 8.7 % (0-10); NRBC Flagged by Analyzer 0 % (0-5); Neutrophil # 3.45 X10^3/uL (2.7-7.7); Neutrophil % 53.8 % (47-70); Platelet Count 314 K/mm3 (150-450); RBC Distribution Width CV 13.3 % (11.6-14.6); RBC Distribution Width SD 41.2 fl (35.1-43.9); White Blood Count 6.4 K/mm3 (4.4-11.0)
[2024-04-13 07:42] LABS: Anion Gap 7 (5-15); BUN 9 mg/dL (7-18); BUN/Creat Ratio 7.1 RATIO (10-20); Calcium,Total 9.1 mg/dL (8.5-10.1); Chloride 106 mmol/L (98-107); Creatinine, Serum 1.26 mg/dL (0.70-1.30); EST Glomerular Filtration Rate 69 mL/min (>60); Est Glom Filt Rate - Afr Amer 83 mL/min (>60); Estimated Creatinine Clearance 84.61 ml/min; Glucose 102 mg/dL (74-106); Potassium 3.8 mmol/L (3.5-5.1); Sodium Level 140 mmol/L (136-145)
--- NOTE | 2024-04-13 07:57 | PCM.PN.SRG ---
Subjective Subjective Patient evaluated resting comfortably in bed. He states the bowel prep went well. He noted blood clots the first several bowel movements and then turned clear to pinkish. No nausea, vomiting with the prep. Objective Data Objective Data Vital Signs: Vital Signs Temp Pulse Resp BP Pulse Ox O2 Del Method 98.1 F 75 18 117/69 96 Room Air 04/13/24 07:43 04/13/24 07:43 04/13/24 07:43 04/13/24 07:43 04/13/24 07:43 04/13/24 07:45 Oxygen Delivery Method Room Air Weight: 195 lb 12.8 oz Body Mass Index (BMI) 32.1 Intake & Output: Intake and Output for Last 24 Hours 04/11/24 04/12/24 04/13/24 23:59 23:59 23:59 Intake Total 2019 1100 / 1100 Balance 2019 1100 / 1100 Lab / Micro Data 04/13/24 06:31 04/13/24 06:31 Labs: Laboratory Results - last 24 hr 04/12/24 11:10: WBC 6.6, RBC 4.56 L, Hgb 12.9 L, Hct 39.2 L, MCV 86.0, MCH 28.3, MCHC 32.9, RDW Std Deviation 41.6, RDW Coeff of George 13.2, Plt Count 324, MPV 10.0, Immature Gran % (Auto) 0.300, Neut % (Auto) 57.1, Lymph % (Auto) 28.9, [place] % (Auto) 10.8 H, Eos % (Auto) 2.0, Baso % (Auto) 0.9, Absolute Neuts (auto) 3.8, Absolute Lymphs (auto) 1.92, Nucleated RBC % 0 04/13/24 06:31: WBC 6.4, RBC 4.50 L, Hgb 12.7 L, Hct 38.5 L, MCV 85.6, MCH 28.2, MCHC 33.0, RDW Std Deviation 41.2, RDW Coeff of George 13.3, Plt Count 314, MPV 9.9, Immature Gran % (Auto) 0.500, Neut % (Auto) 53.8, Lymph % (Auto) 33.5, [place] % (Auto) 8.7, Eos % (Auto) 2.6, Baso % (Auto) 0.9, Absolute Neuts (auto) 3.5, Absolute Lymphs (auto) 2.15, Nucleated RBC % 0, Sodium 140, Potassium 3.8, Chloride 106, Carbon Dioxide 27.0, Anion Gap 7, BUN 9, Creatinine 1.26, Estim Creat Clear Calc 84.61, Est GFR (MDRD) Af Amer 83, Est GFR (MDRD) Non-Af 69, BUN/Creatinine Ratio 7.1 L, Glucose 102, Calcium 9.1 Assessment & Plan Assessment/Plan (1) Acute lower gastrointestinal bleeding: PLAN: I am following this patient in conjunction with Dr. Wagner. He will independently evaluate this patient. Labs reviewed Tolerated bowel prep EGD and colonoscopy scheduled for this morning with Dr. Wagner at 0930 AM We will continue to monitor this patient Charges/Coding Visit Charges Inpatient E&M: 57224 Subs Hosp L1 (No charge)
--- NOTE | 2024-04-13 09:30 | IMM_PTH ---
PATIENT: MARIAN HAMILTON LOC: [facility] U#:[id number] AGE/SX: 38/M ROOM: [facility] RE04/09/[address]: Dr. Edilson Islas DO : 1985 BED: 1 DIS: 04/13/2024 SPEC #: [id number] RECD: 04/13/24 13:48 STATUS: DRU REWisam #: [id number] VIET: 04/13/24 09:[address]: Blu Wagner DEPT: IMMUNOHISTOCHEMISTRY RECD BY: Leif Lockett ENTERED: 04/13/24 13:49 SP TYPE: IMMUNO OTHR DR: Dr. Rivera Banda, DO Dr. Edilson Islas, DO Dr. Saroj Michel, DO Dr. Sandoval Dugan MD Tissues: A - Gastric mucous membrane Procedures: H Pylori (initial) PHYSICIAN & INSTITUTION [place] [address] SPECIMEN INFORMATION: Tissue Source: A- Antrum biopsy Clinical Info: Acute lower gastrointestinal bleeding Specimen Number: [id number] CPT code: 10303 METHODOLOGY: Deparaffinized sections of prefer/formalin-fixed tissue or PAP/DQ stained slides are incubated with monoclonal/polyclonal antibodies/oligonucleotide probes. Localization is made via biotin free immunoperoxidase method. Appropriate controls are performed and reacted as expected. Results on target cell population are indicated in the following table: RESULTS: ANTIBODY / CLONE RESULT Block A H Pylori (polyclonal) negative These tests were developed and their performance characteristics determined by [facility]. They may not have been cleared or approved by the U.S. Food and Drug Administration. The FDA has determined that such clearance or approval is not necessary. The above immunohistochemical/dualISH markers are ordered and reviewed by the Pathologist. INTERPRETATION: A. Antrum, biopsy: Negative for Helicobacter pylori organisms. 04/14/2024
--- NOTE | 2024-04-13 09:40 | PN.HOSP_ITS ---
Reason for Visit Reason for Visit: Diagnoses Gastrointestinal hemorrhage, unspecified (04/09/24) Objective Data Objective Data Vital Signs: Vital Signs Temp Pulse Resp BP Pulse Ox O2 Del Method 36.7 C 75 18 117/69 96 Room Air 04/13/24 07:43 04/13/24 07:43 04/13/24 07:43 04/13/24 07:43 04/13/24 07:43 04/13/24 07:45 Oxygen Delivery Method Room Air Weight: 88.813 kg Body Mass Index (BMI) 32.1 Intake & Output: Intake and Output for Last 24 Hours 04/11/24 04/12/24 04/13/24 23:59 23:59 23:59 Intake Total 2019 1100 / 1100 Balance 2019 1100 / 1100 Lab / Micro Data 04/13/24 06:31 04/13/24 06:31 Labs: Laboratory Results - last 24 hr 04/12/24 11:10: WBC 6.6, RBC 4.56 L, Hgb 12.9 L, Hct 39.2 L, MCV 86.0, MCH 28.3, MCHC 32.9, RDW Std Deviation 41.6, RDW Coeff of George 13.2, Plt Count 324, MPV 10.0, Immature Gran % (Auto) 0.300, Neut % (Auto) 57.1, Lymph % (Auto) 28.9, M edilberto % (Auto) 10.8 H, Eos % (Auto) 2.0, Baso % (Auto) 0.9, Absolute Neuts (auto) 3.8, Absolute Lymphs (auto) 1.92, Nucleated RBC % 0 04/13/24 06:31: WBC 6.4, RBC 4.50 L, Hgb 12.7 L, Hct 38.5 L, MCV 85.6, MCH 28.2, MCHC 33.0, RDW Std Deviation 41.2, RDW Coeff of George 13.3, Plt Count 314, MPV 9.9, Immature Gran % (Auto) 0.500, Neut % (Auto) 53.8, Lymph % (Auto) 33.5, [place] % (Auto) 8.7, Eos % (Auto) 2.6, Baso % (Auto) 0.9, Absolute Neuts (auto) 3.5, Absolute Lymphs (auto) 2.15, Nucleated RBC % 0, Sodium 140, Potassium 3.8, Chloride 106, Carbon Dioxide 27.0, Anion Gap 7, BUN 9, Creatinine 1.26, Estim Creat Clear Calc 84.61, Est GFR (MDRD) Af Amer 83, Est GFR (MDRD) Non-Af 69, B UN/Creatinine Ratio 7.1 L, Glucose 102, Calcium 9.1 Assessment & Plan Assessment/Plan (1) Acute lower gastrointestinal bleeding: PLAN: Plan 1. Bright red blood per rectum/GERD ? This is painless therefore likely AVM versus diverticular bleed based on the CT scan showing multiple diverticulum ? Colonoscopy on 04/10/2024 was limited due to the lack of prep however they were able to get up to the splenic flexure and there was obvious bright red blood but no signs of active bleeding ? He described episodes of syncope and lightheadedness dizziness as well as nausea. BUN is normal and he had an EGD and a colonoscopy in November which demonstrated a little bit of Carrington's esophagus but otherwise no signs of active upper GI disease. ? Recheck of his H&H yesterday afternoon was stable at 12.4, forgot to order lab work for this morning so we will order a CBC this a.m. ? Continue with the PPI ? He does have a plan to follow-up with [facility] in expedited manner colorectal surgery evaluation. ? Will start with his bowel prep early this morning and make adjustments as necessary throughout the day 2. ADHD ? Continue home medications. ? Stable DVT: Ambulation
--- NOTE | 2024-04-13 09:40 | PCM.PN.HOSP ---
Reason for Visit Reason for Visit: Diagnoses Gastrointestinal hemorrhage, unspecified (04/09/24) Subjective Subjective No further bleeding. Objective Data Objective Data Vital Signs: Vital Signs Temp Pulse Resp BP Pulse Ox O2 Del Method 36.7 C 75 18 117/69 96 Room Air 04/13/24 07:43 04/13/24 07:43 04/13/24 07:43 04/13/24 07:43 04/13/24 07:43 04/13/24 07:45 Oxygen Delivery Method Room Air Weight: 88.813 kg Body Mass Index (BMI) 32.1 Intake & Output: Intake and Output for Last 24 Hours 04/11/24 04/12/24 04/13/24 23:59 23:59 23:59 Intake Total 2019 1100 / 1100 Balance 2019 1100 / 1100 Lab / Micro Data 04/13/24 06:31 04/13/24 06:31 Labs: Laboratory Results - last 24 hr 04/12/24 11:10: WBC 6.6, RBC 4.56 L, Hgb 12.9 L, Hct 39.2 L, MCV 86.0, MCH 28.3, MCHC 32.9, RDW Std Deviation 41.6, RDW Coeff of George 13.2, Plt Count 324, MPV 10.0, Immature Gran % (Auto) 0.300, Neut % (Auto) 57.1, Lymph % (Auto) 28.9, [place] % (Auto) 10.8 H, Eos % (Auto) 2.0, Baso % (Auto) 0.9, Absolute Neuts (auto) 3.8, Absolute Lymphs (auto) 1.92, Nucleated RBC % 0 04/13/24 06:31: WBC 6.4, RBC 4.50 L, Hgb 12.7 L, Hct 38.5 L, MCV 85.6, MCH 28.2, MCHC 33.0, RDW Std Deviation 41.2, RDW Coeff of George 13.3, Plt Count 314, MPV 9.9, Immature Gran % (Auto) 0.500, Neut % (Auto) 53.8, Lymph % (Auto) 33.5, [place] % (Auto) 8.7, Eos % (Auto) 2.6, Baso % (Auto) 0.9, Absolute Neuts (auto) 3.5, Absolute Lymphs (auto) 2.15, Nucleated RBC % 0, Sodium 140, Potassium 3.8, Chloride 106, Carbon Dioxide 27.0, Anion Gap 7, BUN 9, Creatinine 1.26, Estim Creat Clear Calc 84.61, Est GFR (MDRD) Af Amer 83, Est GFR (MDRD) Non-Af 69, BUN/Creatinine Ratio 7.1 L, Glucose 102, Calcium 9.1 Physical Exam Const alert and no apparent distress Constitutional Narrative: dressed in street clothes. HEENT head/scalp atraumatic and moist oral mucous membranes Assessment & Plan Assessment/Plan (1) Acute lower gastrointestinal bleeding: PLAN: Plan GI bleed EGD unremarkable. Colonoscopy showed no active source of bleeding. Diverticulosis noted in sigmoid colon as well as external and internal hemorrhoids. I suspect it may be due to divertiuclosis. GS recommending a high-fiber diet ABLA 2/2 GIB. Hg dropped from 14.3 to 12.3. Hg has remained stable No transfusion necessary at this time. Syncope I suspect due to fluid shift from acute anemia. No further events. No additional work up at this time. Discharge home.
--- NOTE | 2024-04-13 10:24 | PCM.POSTANE2 ---
Anesthesia Postop Eval I Sum Postop Eval Completion status Anesthesia document: Postop Eval 1 completed: Yes Anesthesia Postop Eval I Summary Anesthesia Postop Eval I Summary: Anesthesia Postop Eval I: Assessment Summary Airway patent Yes 04/10/24 12:58 LAURA Spontaneous unlabored Yes 04/10/24 12:58 LAURA respirations Mental status Awake,Calm 04/10/24 16:44 nausea No 04/10/24 16:44 Vomiting No 04/10/24 16:44 Anesthesia Postop Eval I: Fluid Summary Crystalloid volume administer 10 04/10/24 12:58 LAURA (ml) Colloids volume administered ( ml) Blood Product volume administered (ml) Total IV fluid infused 10 04/10/24 12:58 LAURA Anesthesia Postop Eval I: Summary Notes Anesthesia Complication No 04/10/24 16:44 Anesthesia Complication Comment: Post-operative progress note Anesthesia: Postop Eval II Evaluation Mental status: Awake Pain Level: 1 nausea: No Vomiting: No
--- NOTE | 2024-04-13 10:47 | PCM.POST.ANE ---
Anesthesia: Postop Eval I Current Vital Signs Temperature: 97.9 F Pulse Rate: 81 Blood Pressure: 94/72 Respiratory Rate: 16 Pulse Ox: 100 Oxygen Delivery Method: Room Air Assessment Airway patent: Yes Spontaneous unlabored respirations: Yes Mental status: Awake and Calm nausea: No Vomiting: No Anesthesia Complication: No Fluid Hydration Crystalloid volume administer (ml): 20 Total IV fluid infused: 20 Progress Note Anesthesia document: Postop Eval 1 completed: Yes
--- NOTE | 2024-04-13 10:48 | OP.CCLET_ITS ---
04/13/2024 Saroj Michel [address] [place] [address] Re : Upper GI endoscopy procedure for Jeff Barber Dear Dr. Michel This procedure was performed on Saturday, April 13, 2024. My impressions and recommendations are as follows: Impressions : - Normal esophagus. Biopsied. - Normal stomach. Biopsied. - Normal duodenal bulb. Recommendations : - [facility] to [facility] care. - High fiber diet. - Continue present medications. My findings are described in the full procedure note, which is enclosed. If I can be of further assistance, please feel free to contact me at . Sincerely, Blu Wagner MD 04/13/2024 10:47:19 AM This report has been signed electronically.
--- NOTE | 2024-04-13 10:48 | OP.EGD_ITS ---
Patient Name: Jeff Barber Procedure Date: 04/13/2024 9:35 AM Date of : 1985 Age: 38 Procedure: Upper GI endoscopy Indications: Recent gastrointestinal bleeding Providers: Blu Wagner MD Medicines: Monitored Anesthesia Care Patient Profile: Refer to note in patient chart for documentation of history and physical. Patient has symptoms. Complications: No immediate complications. Estimated blood loss: Minimal. Procedure: Pre-Anesthesia Assessment: - Prior to the procedure, a History and Physical was performed, and patient medications and allergies were reviewed. The patient's tolerance of previous anesthesia was also reviewed. The risks and benefits of the procedure and the sedation options and risks were discussed with the patient. All questions were answered, and informed consent was obtained. Prior Anticoagulants: The patient has taken no anticoagulant or antiplatelet agents. ASA Grade Assessment: II - A patient with mild systemic disease. After reviewing the risks and benefits, the patient was deemed in satisfactory condition to undergo the procedure. After obtaining informed consent, the endoscope was passed under direct vision. Throughout the procedure, the patient's blood pressure, pulse, and oxygen saturations were monitored continuously. The Endoscope was introduced through the mouth, and advanced to the duodenal bulb. The upper GI endoscopy was accomplished without difficulty. The patient tolerated the procedure well. Moderate Sedation: See the other procedure note for documentation of moderate sedation with intraservice time. Scope In: 9:56:18 AM Scope Out: 10:03:18 AM Total Procedure Duration Time 0 hours 7 minutes 0 seconds Findings: The examined esophagus was normal. Mucosa was biopsied with a cold forceps for histology randomly at the gastroesophageal junction. Verification of patient identification for the specimen was done by the nurse using the patient's name, date and medical record number. Estimated blood loss was minimal. The entire examined stomach was normal. Biopsies were taken with a cold forceps for Helicobacter pylori testing. Verification of patient identification for the specimen was done by the nurse using the patient's name, date and medical record number. Estimated blood loss was minimal. The duodenal bulb was normal. Impression: - Normal esophagus. Biopsied. - Normal stomach. Biopsied. - Normal duodenal bulb. Recommendation: - Return patient to [facility] for [facility] care. - High fiber diet. - Continue present medications. Procedure Code(s): --- Professional --- 93821, Esophagogastroduodenoscopy, flexible, transoral; with biopsy, single or multiple Diagnosis Code(s): --- Professional --- K92.2, Gastrointestinal hemorrhage, unspecified CPT copyright 2021 [employer]. All rights reserved. The codes documented in this report are preliminary and upon hims coder review may be revised to meet current compliance requirements. Blu Wagner MD 04/13/2024 10:47:19 AM This report has been signed electronically. Number of Addenda: 0 Note Initiated On: 04/13/2024 9:35 AM
--- NOTE | 2024-04-13 10:54 | OP.CCLET_ITS ---
04/13/2024 Saroj Michel [address] [place] [address] Re : Colonoscopy procedure for Jeff Barber Dear Dr. Michel This procedure was performed on Saturday, April 13, 2024. My impressions and recommendations are as follows: Impressions : - Diverticulosis in the sigmoid colon. - External and internal hemorrhoids. - One 3 mm polyp in the rectum, removed with a cold biopsy forceps. Resected and retrieved. - The examination was otherwise normal on direct and retroflexion views. Recommendations : - Return patient to [facility] for ongoing care. - High fiber diet. - Await pathology results. - Repeat colonoscopy in 3 - 5 years for surveillance based on pathology results. - Return to my office PRN. - Continue present medications. My findings are described in the full procedure note, which is enclosed. If I can be of further assistance, please feel free to contact me at . Sincerely, Blu Wagner MD 04/13/2024 10:53:34 AM This report has been signed electronically.
--- NOTE | 2024-04-13 10:54 | OP.COLON_ITS ---
Patient Name: Jeff Barber Procedure Date: 04/13/2024 10:03 AM Date of : 1985 Age: 38 Procedure: Colonoscopy Indications: Hematochezia Providers: Blu Wagner MD Medicines: Monitored Anesthesia Care Patient Profile: Refer to note in patient chart for documentation of history and physical. Patient has symptoms. Refer to note in patient chart for documentation of history and physical. Last Colonoscopy: within the past 6 months. Complications: No immediate complications. Estimated blood loss: Minimal. Procedure: Pre-Anesthesia Assessment: - Prior to the procedure, a History and Physical was performed, and patient medications and allergies were reviewed. The patient's tolerance of previous anesthesia was also reviewed. The risks and benefits of the procedure and the sedation options and risks were discussed with the patient. All questions were answered, and informed consent was obtained. Prior Anticoagulants: The patient has taken no anticoagulant or antiplatelet agents. ASA Grade Assessment: II - A patient with mild systemic disease. After reviewing the risks and benefits, the patient was deemed in satisfactory condition to undergo the procedure. - Prior to the procedure, a History and Physical was performed, and patient medications and allergies were reviewed. The patient's tolerance of previous anesthesia was also reviewed. The risks and benefits of the procedure and the sedation options and risks were discussed with the patient. All questions were answered, and informed consent was obtained. Prior Anticoagulants: The patient has taken no anticoagulant or antiplatelet agents. ASA Grade Assessment: II - A patient with mild systemic disease. After reviewing the risks and benefits, the patient was deemed in satisfactory condition to undergo the procedure. After I obtained informed consent, the scope was passed under direct vision. Throughout the procedure, the patient's blood pressure, pulse, and oxygen saturations were monitored continuously. The pediatric colonoscope was introduced through the anus and advanced to the cecum, identified by appendiceal orifice and ileocecal valve. The ileocecal valve, appendiceal orifice, and rectum were photographed. The entire colon was well visualized. The colonoscopy was performed without difficulty. The patient tolerated the procedure well. The quality of the bowel preparation was adequate. Moderate Sedation: See the other procedure note for documentation of moderate sedation with intraservice time. Scope In: 10:11:36 AM Scope Out: 10:35:11 AM Total Procedure Duration Time 0 hours 23 minutes 35 seconds Findings: The perianal and digital rectal examinations were normal. Many small and large-mouthed diverticula were found in the sigmoid colon. External and internal hemorrhoids were found during retroflexion. The hemorrhoids were moderate. A 3 mm polyp was found in the rectum. The polyp was semi-sessile. The polyp was removed with a cold biopsy forceps. Resection and retrieval were complete. Verification of patient identification for the specimen was done by the nurse using the patient's name, date and medical record number. The exam was otherwise without abnormality on direct and retroflexion views. Impression: - Diverticulosis in the sigmoid colon. - External and internal hemorrhoids. - One 3 mm polyp in the rectum, removed with a cold biopsy forceps. Resected and retrieved. - The examination was otherwise normal on direct and retroflexion views. Recommendation: - Return patient to [facility] for ongoing care. - High fiber diet. - Await pathology results. - Repeat colonoscopy in 3 - 5 years for surveillance based on pathology results. - Return to my office PRN. - Continue present medications. Procedure Code(s): --- Professional --- 53507, Colonoscopy, flexible; with biopsy, single or multiple Diagnosis Code(s): --- Professional --- K64.8, Other hemorrhoids D12.8, Benign neoplasm of rectum K92.1, Melena (includes Hematochezia) K57.30, Diverticulosis of large intestine without perforation or abscess without bleeding CPT copyright 2021 [employer]. All rights reserved. The codes documented in this report are preliminary and upon remote coders review may be revised to meet current compliance requirements. Blu Wagner MD 04/13/2024 10:53:34 AM This report has been signed electronically. Number of Addenda: 0 Note Initiated On: 04/13/2024 10:03 AM
--- NOTE | 2024-04-13 11:30 | NURSING ---
Return from PACU. Walking around room and no complaints. Meal order placed and placed order for lunch.
[2024-04-13] MEDS: LISDEXAMFETAMINE DIMESYLATE 70 MG CAPSULE PO (11:44)
--- NOTE | 2024-04-13 11:45 | ANES.CONFIRM ---
Anesthesia: Confirm Documents Multiple Procedures on Account (2) Confirmed Documents: Yes
--- NOTE | 2024-04-13 11:47 | PCM.POSTANE2 ---
Anesthesia Postop Eval I Sum Postop Eval Completion status Anesthesia document: Postop Eval 1 completed: Yes Anesthesia Postop Eval I Summary Anesthesia Postop Eval I Summary: Anesthesia Postop Eval I: Assessment Summary Airway patent Yes 04/13/24 10:48 Spontaneous unlabored Yes 04/13/24 10:48 respirations Mental status Awake,Calm 04/13/24 10:48 nausea No 04/13/24 10:48 Vomiting No 04/13/24 10:48 Anesthesia Postop Eval I: Fluid Summary Crystalloid volume administer 20 04/13/24 10:48 (ml) Colloids volume administered ( ml) Blood Product volume administered (ml) Total IV fluid infused 04/13/24 10:48 Anesthesia Postop Eval I: Summary Notes Anesthesia Complication No 04/13/24 10:48 Anesthesia Complication Comment: Post-operative progress note Anesthesia: Postop Eval II Evaluation Mental status: Awake and Calm Pain Level: 0 nausea: No Vomiting: No Complications Anesthesia Complication: No
--- NOTE | 2024-04-13 12:56 | CHAPLAIN ---
Type of Pastoral Visit _x__ Initial Visit ___ Follow-up Visit ___ On-call Visit ___ General Patient Visit ___ Spiritual Assessment ___ Family Conference ___ Bereavement ___ Rapid Response ___ Code Blue ___ Other (describe below) Pastoral Care Referral From _x__ Patient _x__ Family ___ Nurse ___ Physician ___ Operations Consultant ___ Fuel Agent ___ Other (describe below) Sacrament/Intervention _x__ Active listening ___ Anointing ___ Roman Catholic ___ Bereavement ___ Communion ___ Faby exploration ___ _x__ Life review _x__ Prayer ___ Reconciliation ___ Sacrament of Sick ___ Supportive presence ___ Wedding ___ Other (describe below) Pastoral Comments patient and spouse are in the room waiting for discharge orders; pt goal is to get home and back to his routine; pt has follow up appointments that he hopes goes well toward finding cause of his issues; spouse is an employee of this hospital and is interactive in this conversation; spouse is supportive of the patient; 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
--- NOTE | 2024-04-13 13:28 | DS.PCM_ITS ---
Providers Date of Admission: 04/09/24 Primary Care Physician: Dr. Saroj Michel, Consultations 04/09/24 23:25 Consult: General Surgery Routine Consulting Provider: Blu Wagner Reason for Consult: acute lower GI bleed EMERGENT Consult: No MD Notified: Yes Date Notified: 04/10/24 Time Notified: 06:43 Method of Notification: Text Reason For Visit: ACUTE LOWER GI BLEED Diagnosis Discharge Diagnosis (1) Acute lower gastrointestinal bleeding: Status: Acute Code(s): K92.2 - Gastrointestinal hemorrhage, unspecified Plan GI bleed * EGD unremarkable. Colonoscopy showed no active source of bleeding. Diverticulosis noted in sigmoid colon as well as external and internal hemorrhoids. * I suspect it may be due to divertiuclosis. * recommending a high-fiber diet ABLA * 2/2 GIB. Hg dropped from 14.3 to 12.3. Hg has remained stable * No transfusion necessary at this time. Syncope * I suspect due to fluid shift from acute anemia. No further events. No additional work up at this time. Discharge home. Medications at Discharge Home Medications sumatriptan succinate 100 mg tablet (Imitrex) 100 mg PO DAILY PRN MIGRAINE 06/02/17 rabeprazole 20 mg tablet,delayed release (AcipHex) 20 mg PO DAILY GERD 30 days #30 tabs 05/07/22 dextroamphetamine-amphetamine 20 mg tablet (Adderall) 20 mg PO DAILY ADHD 12/10/23 multivitamin (Daily Multi-Vitamin tablet) 1 tab PO DAILY HEALTH MAINTENANCE 12/10/23 budesonide 3 mg capsule,delayed,extended release 6 mg (2 x 3 mg) PO DAILY CROHNS DISEASE #60 ea 12/18/23 Diltiazem 10mg/Lidocaine 50mg Suppository 30 supp suppository 1 supp [place] BID RECTAL SPASMS 21 days #30 supp 03/23/24 lisdexamfetamine 70 mg capsule (Vyvanse) 70 mg PO DAILY ADHD 03/24/24 Hydrocortisone 2.5% / Lidocaine 5% ointment (cmpd) (Hydrocortisone 2.5%/lidocaine 5% ointment (compound)) 04/13/24 Hospital Course Procedures Colonoscopy and EGD Summary of Care Provided Minutes Spent on Discharge: 28 Weight / BMI Weight Weight: 88.813 kg Body Mass Index (BMI) 32.1 ABG / Lab / Microbiology Data 04/13/24 06:31 04/13/24 06:31 Laboratory: Laboratory Results - last 24 hr 04/13/24 06:31: WBC 6.4, RBC 4.50 L, Hgb 12.7 L, Hct 38.5 L, MCV 85.6, MCH 28.2, MCHC 33.0, RDW Std Deviation 41.2, RDW Coeff of George 13.3, Plt Count 314, MPV 9.9, Immature Gran % (Auto) 0.500, Neut % (Auto) 53.8, Lymph % (Auto) 33.5, [place] % (Auto) 8.7, Eos % (Auto) 2.6, Baso % (Auto) 0.9, Absolute Neuts (auto) 3.5, Absolute Lymphs (auto) 2.15, Nucleated RBC % 0, Sodium 140, Potassium 3.8, Chloride 106, Carbon Dioxide 27.0, Anion Gap 7, BUN 9, Creatinine 1.26, Estim Creat Clear Calc 84.61, Est GFR (MDRD) Af Amer 83, Est GFR (MDRD) Non-Af 69, B UN/Creatinine Ratio 7.1 L, Glucose 102, Calcium 9.1 D/C Instructions Discharge Diet: - (high fiber diet) Meaningful Use Info Meaningful Use Meaningful Use Diagnoses (Choose all that apply): None applicable Ischemic Stroke Statin Dosing Therapy Reference: STATIN DOSE THERAPY REFERENCE: * Patients > 75 years receive moderate or high dose statin therapy. * Patients 75 years or YOUNGER should receive HIGH intensity statin dose unless contraindicated. You will be required to document reason for non-treatment if statin daily dose does not meet guidelines. HIGH DOSE STATIN THERAPY DAILY Atorvastatin > than or = to 40 mg Rosuvastatin > than or = to 20 mg Amlodipine + Atorvastatin > than or = to 2.5/40 mg Ezetimibe + Simvastatin 10/80 mg Simvastatin 80mg Discharge Plan Admission Admit Date/Time: 04/09/24 22:41 Primary Reason for Your Visit: GI bleed Attending Provider: Edilson Islas Primary Care Provider: Saroj Michel Consulting Providers: Rivera Banda; Blu Wagner; Sandoval Dugan Instructions Additional Instructions / Restrictions: Rectal bleeding is likely due to diverticulosis or your internal hemorrhoids. As you know, EGD and colonoscopy did not show any active bleeding. It is possible these could bleed again. General surgery recommends a high fiber diet. I suspect your passing out when you stand up was likely due to fluid shifts with the anemia causing a vagal type reaction. I do not have any restrictions on your activity at this time. Inform your physician or return to the emergency room if you have recurrent bleeding in the future. Discharge Orders/Prescriptions Prescriptions: Continued sumatriptan succinate [Imitrex] 100 MG tablet 100 mg PO DAILY PRN (Reason: MIGRAINE ) lisdexamfetamine [Vyvanse] 70 mg capsule 70 mg PO DAILY (DME) Hydrocortisone 2.5%/lidocaine 5% ointment (compound) Ointment See Rx Instructions .Route Rx Instructions: APPLY TO RECTAL AREA DAILY NEEDED FOR SPASMS dextroamphetamine-amphetamine [Adderall] 20 mg tablet 20 mg PO DAILY multivitamin [Daily Multi-Vitamin] Tablet 1 tab PO DAILY rabeprazole [AcipHex] 20 mg tablet,delayed release (DR/EC) 20 mg PO DAILY 30 Days Qty: 30 5RF budesonide 3 mg capsule,delayed,extend.release 6 mg PO DAILY Qty: 60 5RF Diltiazem 10mg/Lidocaine 50mg Suppository 30 supp suppository 1 supp [place] BID 21 Days Qty: 30 0RF Patient Comments: TAKING 1 SUPPOSITORY DAILY PRN RECTAL SPASMS PER PATIENT Rx Instructions: diltiazem HCl (bulk) powder 300 mg; lidocaine (bulk) powder 1500 mg; Per 30 supp Referrals / Follow Up: Saroj Michel DO [Primary Care Provider] - Disposition Disposition (needs filled in before D/C Order can be placed): Home, Self Care Charges/Coding Visit Charges Inpatient E&M: [id number] Disch Hosp
--- NOTE | 2024-04-13 13:53 | PHA.DC.MR.R ---
Pharmacy [place] Med Reconciliation Pharmacy Service has performed discharge medication reconciliation for this patient. The patient's discharge medication list was reviewed for discrepancies and discrepancies were resolved. Medications at Discharge Home Medications sumatriptan succinate 100 mg tablet (Imitrex) 100 mg PO DAILY PRN MIGRAINE 06/02/17 rabeprazole 20 mg tablet,delayed release (AcipHex) 20 mg PO DAILY GERD 30 days #30 tabs 05/07/22 dextroamphetamine-amphetamine 20 mg tablet (Adderall) 20 mg PO DAILY ADHD 12/10/23 multivitamin (Daily Multi-Vitamin tablet) 1 tab PO DAILY HEALTH MAINTENANCE 12/10/23 budesonide 3 mg capsule,delayed,extended release 6 mg (2 x 3 mg) PO DAILY CROHNS DISEASE #60 ea 12/18/23 Diltiazem 10mg/Lidocaine 50mg Suppository 30 supp suppository 1 supp [place] BID RECTAL SPASMS 21 days #30 supp 03/23/24 lisdexamfetamine 70 mg capsule (Vyvanse) 70 mg PO DAILY ADHD 03/24/24 Hydrocortisone 2.5% / Lidocaine 5% ointment (cmpd) (Hydrocortisone 2.5%/lidocaine 5% ointment (compound)) 04/13/24
--- NOTE | 2024-04-13 13:58 | CASEMGMT ---
Patient has order for discharge. RN CM in to discuss needs at discharge. Patient denies needs or help at discharge. Patient had no further questions or concerns.
== END 2024-04-13 14:19 | disposition home or self-care (01) | DRG 378 ==
LOC: ED 19:10 → PCU 23:02
PROVIDERS: Emergency Medicine; Family Medicine; Surgery; Admitting Provider Hospitalist; Emergency Provider Emergency Medicine; PCP Student in an Organized Health Care Education/Training Program
PROC: 0DJD8ZZ Inspection of Lower Intestinal Tract, Via Natural or Artificial Opening Endoscopic (ICD-10-PCS; CPT 45330; principal; 2024-04-10 10:25)
DX: K92.2 Gastrointestinal hemorrhage, unspecified (principal); D62 Acute posthemorrhagic anemia; E78.00 Pure hypercholesterolemia, unspecified; K57.30 Diverticulosis of large intestine without perforation or abscess without bleeding; K21.9 Gastro-esophageal reflux disease without esophagitis; K22.70 Barrett's esophagus without dysplasia; K64.4 Residual hemorrhoidal skin tags; K64.8 Other hemorrhoids; F90.9 Attention-deficit hyperactivity disorder, unspecified type; Z79.51 Long term (current) use of inhaled steroids; Z79.2 Long term (current) use of antibiotics; Z79.899 Other long term (current) drug therapy; Z88.2 Allergy status to sulfonamides; Z88.1 Allergy status to other antibiotic agents; Z88.8 Allergy status to other drugs, medicaments and biological substances; Z87.820 Personal history of traumatic brain injury; Z11.52 Encounter for screening for COVID-19
CPT/HCPCS: 36415; 74174; 80048; 85014; 85018; 85025; 85027; 86850; 86900; 86901; 88305; 88342; 94762; 99285; 99406; Q9967; A4216; J2405

== ENCOUNTER → 2024-04-09 | Outpatient (CLI) | payer OTHER, SELFPAY ==
[2024-04-09 15:38] LABS: Absolute Lymphocyte Count 2.67 X10^3/uL (0.83-4.51); Absolute Neutrophil Count 4.7 X10^3/uL (2.0-7.7); Basophil# 0.09 X10^3/uL; Basophil% 1.1 % (0-1); Eosinophil# 0.11 X10^3/uL; Eosinophils% 1.3 % (0-5); Hematocrit 44.5 % (40-54); Hemoglobin 14.6 g/dL (13.0-16.5); Lymphocyte # 2.67 X10^3/ul (0.83-4.51); Lymphocyte % 32.3 % (19-41); Mean Corp Hgb Conc 32.8 g/dL (32-36); Mean Corpuscular Hgb 27.8 pg (27.0-32.0); Mean Corpuscular Volume 84.8 fL (80-94); Monocyte# 0.68 X10^3/uL; Monocyte% 8.2 % (0-10); NRBC Flagged by Analyzer 0 % (0-5); Neutrophil # 4.68 X10^3/uL (2.7-7.7); Neutrophil % 56.6 % (47-70); Platelet Count 355 K/mm3 (150-450); RBC Distribution Width CV 13.2 % (11.6-14.6); RBC Distribution Width SD 40.9 fl (35.1-43.9); Red Blood Count 5.25 M/mm3 (4.6-6.2); White Blood Count 8.3 K/mm3 (4.4-11.0)
== END | disposition home or self-care (01) ==
PROVIDERS: Student in an Organized Health Care Education/Training Program; PCP Student in an Organized Health Care Education/Training Program; Referring Provider Internal Medicine Gastroenterology; Visit Provider Internal Medicine Gastroenterology
DX: K72.90 Hepatic failure, unspecified without coma (principal); K74.60 Unspecified cirrhosis of liver
CPT/HCPCS: 85025

== ENCOUNTER → 2024-11-23 | Outpatient (CLI) | payer OTHER, SELFPAY ==
--- NOTE | 2024-11-23 09:35 | RAD_ITS ---
PROCEDURE: FOOT MIN 3 VIEWS 11/23/2024 REASON FOR EXAM: 1ST MTP PAIN TECHNIQUE: Three-view right foot series COMPARISON: None. RAD/Foot min 3 Views IMPRESSION: And lateral imaging, a moderate posterior calcaneal enthesophyte is noted. Normal contour of the Achilles tendon is noted. Minimal degenerative changes are seen of the right 1st metatarsophalangeal join t, without significant joint narrowing or hallux valgus deformity. No evidence of inflammatory arthritis. No fracture or dislocation is noted. Reading Location: [facility]
== END | disposition home or self-care (01) ==
LOC: MTRAD 09:35
PROVIDERS: PCP Student in an Organized Health Care Education/Training Program; Referring Provider Physician Assistant; Visit Provider Physician Assistant
DX: R52 Pain, unspecified (principal)
CPT/HCPCS: 73630

== ENCOUNTER → 2025-02-06 | Outpatient (CLI) | payer OTHER, SELFPAY ==
--- OUTSIDE RECORDS SUMMARY | 2025-02-06 07:36 | XMS RPT_ITS | CCD ---
Author Organization [facility] Care Team Providers Care Credit Administration Officer Name Role Phone [facility] Unavailable Unavaila ble FELICIANO, [facility] Unavailable [facility]availa ble [facility] Un[facility] Unavaila ble Saroj Michel DO Primary Care Provider Dr. Saroj Michel Primary Care Provider Dr. Saroj Michel Referring Provider Friend, Dr. Guillermo Attending Provider Saroj Michel DO Primary Care Provider Dr. Saroj Michel Primary Care Provider Dr. Saroj Michel Referring Provider Dr. Funmi Goodman Attending Provider [phone] WILMER Mendiola Attending Provider Saroj Michel DO Primary Care Provider Dr. Saroj Michel Primary Care Provider Dr. Saroj Michel Referring Provider Dr. Funmi Goodman Attending Provider [phone] WILMER Mendiola Attending Provider Dr. Saroj Michel Primary Care Provider Dr. Saroj Michel Referring Provider MD Koko Fernandez Attending Provider Dr. Ravin Malik Attending Provider Dr. Funmi Goodman Attending Provider [phone] WILMER Mendiola Attending Provider Saroj Michel DO Primary Care Provider Rob CATEGORY SPECIALIST.JASMINA Hien Stapleton Unavailable Jessica CATEGORY SPECIALIST.Luis Alfredo FREEDMAN Unavailable Dr. Saroj Michel DO Primary Care Provider Dr. Saroj Michel DO Referring Provider Blu Schmidt Attending Provider Blu Schmidt Referring Provider Michel, Saroj Primary Care Unavailable Beau Young Attending Unavailabl e Rivera Banda Admitting Unavailable Rivera Banda Consulting Unavailable Edilson Islas Attending Unavailable Michel, Saroj Primary Care Unavailable Blu Wagner Consulting Unavailable Sandoval Dugan Consulting Unavailable Edilson Islas Consulting Unavailable Rivera Banda Attending Unavailable Latisha Torres Referring Unavailable JosnasovLatisha Attending Unavailable Michel, Saroj Primary Care Unavailable Michel, Saroj Referring Unavailable Michel, Saroj Attending Unavailable Michel, Saroj Primary Care Unavailable Sandoval Dugan Attending Unavailable Blu Schmidt Attending Unavailable Michel, Saroj Referring Unavailable Michel, Saroj Primary Care Unavailable Blu Schmidt Attending Unavailable Michel, Saroj Referring Unavailable Michel, Saroj Primary Care Unavailable Blu Schmidt Attending Unavailable Michel, Saroj Referring Unavailable Michel, Saroj Primary Care Unavailable Blu Schmidt Referring Unavailable Blu Schmidt Attending Unavailable Michel, Saroj Primary Care Unavailable Friend, Eagle Referring Unavailable Friend, Eagle Attending Unavailable Latisha Torres Consulting Unavailable Michel, Saroj Primary Care Unavailable Edilson Huddleston Attending Unavailable Michel, Saroj Primary Care Unavailable Rivera Banda Admitting Unavailable Rivera Banda Consulting Unavailable Edilson Islas Attending Unavailable Michel, Saroj Primary Care Unavailable Blu Wagner Consulting Unavailable Sandoval Dugan Consulting Unavailable Stephenie Oliveira Attending Unavailable Edilson Islas Referring Unavailable Blu Wagner Attending Unavailable Friend, Eagle Attending Unavailable Michel, Saroj Primary Care Unavailable Michel, Saroj Referring Unavailable Michel, Saroj Referring Unavailable Friend, Eagle Attending Unavailable Michel, Saroj Primary Care Unavailable Assessment, Health Risk Attending Unavaila ble Michel, Saroj Primary Care Unavailable Friend, Eagle Attending Unavailable Friend, Eagle Referring Unavailable Michel, Saroj Primary Care Unavailable Blu Wagner Attending Unavailable Michel, Saroj Primary Care Unavailable Michel, Saroj Referring Unavailable Blu Schmidt Attending Unavailable Michel, Saroj Primary Care Unavailable Michel, Saroj Primary Care Unavailable Michel, Saroj Referring Unavailable Friend, Eagle Attending Unavailable Friend, Eagle Consulting Unavailable Friend, Eagle Attending Unavailable Friend, Eagle Consulting Unavailable Michel, Saroj Referring Unavailable Michel, Saroj Primary Care Unavailable Michel, Saroj Referring Unavailable Latisha Torres Attending Unavailable Michel, Saroj Primary Care Unavailable Dulce Maria Pereira Attending Unavailable Edna CATEGORY SPECIALIST.PAINTING TECHNICIAN, Adrianne Crain Unavailable CRIS SANDHU Attending Unavailab le MICHEL, SAROJ L Primary Care Unavailable MICHEL, SAROJ L Attending Unavailable MICHEL, SAROJ L Primary Care Unavailable MICHEL, SAROJ L Primary Care Unavailable SYBIL MIKE Attending Unavailable CRIS SANDHU Attending Unavailab ABDOULAYE Crouch Referring Unavailable MICHEL, SAROJ L Primary Care Unavailable CRIS SANDHU Attending Unavailab le MICHEL, SAROJ L Primary Care Unavailable MICHEL, SAROJ L Attending Unavailable MICHEL, SAROJ L Primary Care Unavailable MICHEL, SAROJ L Primary Care Unavailable CRIS SANDHU Admitting Unavailab le CRIS SANDHU Attending Unavailab le MICHEL, SAROJ L Primary Care Unavailable Allergies Allergy Classification Reported Allergen(s) Allergy Type Date of Onset Reaction(s) Facility Penicillins (antibiotic) (1 source) Amoxicillin Drug Allergy 01-31-20 05 [facility] Work Phone: Sulfamethoxazole / Trimethoprim (1 source) Sulfamethoxazole / Trimethoprim Drug Allergy 01-31-20 05 [facility] (20 sources) Amoxicillin; Translations: [AMOXICILLIN] Drug Allergy 01-31-20 05 [facility] Work Phone: (20 sources) Sulfamethoxazole / Trimethoprim; Translations: [SULFAMETHOXAZOLE-TR IMETHOPRIM] Drug Allergy 01-31-20 05 [facility] Work Phone: (6 sources) Sulfamethoxazole Drug Allergy 08-18-19 [facility] (7 sources) Sulfonamides (Antibiotic); Translations: [Sulfa (Sulfonamide Antibiotics)] Allergy to substance 08-18-19 [facility] (6 sources) Trimethoprim Drug Allergy 08-18-19 [facility] (1 source) Amoxicillin Drug Allergy 11-24-19 [facility] (1 source) Sulfamethoxazole Drug Allergy 11-24-19 [facility] (1 source) Trimethoprim Drug Allergy 11-24-19 [facility] Medications Current Medications Medication Drug Class(es) Dates Sig (Normalized) Sig (Original) acetaminophen 500 mg oral tablet (13 sources) Start: 05-21-2024 take 2 tablets by mouth every six hours as needed acetaminophen (TYLENOL EXTRA STRENGTH) 500 mg tablet Take 2 tablets by mouth every 6 hours as needed for pain. 05/21/2024 Active amphetamine aspartate 5 mg / amphetamine sulfate 5 mg / dextroamphetamine saccharate 5 mg / dextroamphetamine sulfate 5 mg oral tablet (20 sources) Central Nervous System Stimulant Start: 02-03-2025 End: 03-05-2025 take 1 tablet by mouth twice daily as needed dextroamphetamine- amphetamine (ADDERALL) 20 mg tablet Indications: Attention deficit disorder (ADD) in adult Take 1 tablet by mouth two times a day for 30 days. In the afternoon as needed for focus/concentratio n 60 tablet 02/03/2025 03/05/2025 Active Start: 07-08-2024 End: 02-01-2025 take 1 tablet by mouth twice daily as needed dextroamphetamine-amphetamine (ADDERALL) 20 mg tablet Indications: Attention deficit disorder (ADD) in adult Take 1 tablet by mouth two times a day for 30 days. In the afternoon as needed for focus/concentration Patient should start on October 15, 2024. 60 tablet 10/15/2024 02/01/2025 Discontinued Start: 07-08-2024 End: 06-02-2024 take 1 tablet by mouth twice daily as needed dextroamphetamine-amphetamine (ADDERALL) 20 mg tablet Indications: Attention deficit disorder (ADD) in adult Take 1 tablet by mouth two times a day for 30 days. In the afternoon as needed for focus/concentration Patient should start on July 08, 2024. 60 tablet 07/08/2024 06/02/2024 Discontinued Start: 07-08-2024 End: 05-08-2024 take 1 tablet by mouth once daily as needed dextroamphetamine-amphetamine (ADDERALL) 20 mg tablet Indications: Attention deficit disorder (ADD) in adult Take 1 tablet by mouth once daily for 30 days. In the afternoon as needed for focus/concentration Patient should start on July 08, 2024. 30 tablet 07/08/2024 05/08/2024 Discontinued Start: 06-09-2024 End: 08-19-2024 take 1 tablet by mouth twice daily as needed dextroamphetamine-amphetamine (ADDERALL) 20 mg tablet Indications: Attention deficit disorder (ADD) in adult Take 1 tablet by mouth two times a day for 30 days. In the afternoon as needed for focus/concentration Patient should start on June 09, 2024. 60 tablet 06/09/2024 08/19/2024 Discontinued Start: 06-09-2024 End: 06-02-2024 take 1 tablet by mouth twice daily as needed dextroamphetamine-amphetamine (ADDERALL) 20 mg tablet Indications: Attention deficit disorder (ADD) in adult Take 1 tablet by mouth two times a day for 30 days. In the afternoon as needed for focus/concentration Patient should start on June 09, 2024. 60 tablet 06/09/2024 06/02/2024 Discontinued Start: 06-09-2024 End: 05-08-2024 take 1 tablet by mouth once daily as needed dextroamphetamine-amphetamine (ADDERALL) 20 mg tablet Indications: Attention deficit disorder (ADD) in adult Take 1 tablet by mouth once daily for 30 days. In the afternoon as needed for focus/concentration Patient should start on June 09, 2024. 30 tablet 06/09/2024 05/08/2024 Discontinued Start: 05-11-2024 End: 08-19-2024 take 1 tablet by mouth twice daily as needed dextroamphetamine-amphetamine (ADDERALL) 20 mg tablet Indications: Attention deficit disorder (ADD) in adult Take 1 tablet by mouth two times a day for 30 days. In the afternoon as needed for focus/concentration Patient should start on May 11, 2024. 60 tablet 05/11/2024 08/19/2024 Discontinued Start: 05-11-2024 End: 05-08-2024 take 1 tablet by mouth once daily as needed dextroamphetamine-amphetamine (ADDERALL) 20 mg tablet Indications: Attention deficit disorder (ADD) in adult Take 1 tablet by mouth once daily for 30 days. In the afternoon as needed for focus/concentration Patient should start on May 11, 2024. 30 tablet 05/11/2024 05/08/2024 Discontinued Start: 11-19-2023 End: 05-14-2024 take 1 tablet by mouth once daily Dextroamphetamine-Amphetamine (Adderall) 20 mg tablet Active 20 mg PO DAILY 0 December 10, 2023 12:00am ADHD atomoxetine 40 mg oral capsule (1 source) Norepinephrine Reuptake Inhibitor Start: 02-03-2025 take 1 capsule by mouth once daily atomoxetine (STRATTERA) 40 mg capsule Take 1 capsule by mouth once daily. 30 capsule 02/03/2025 Active budesonide 3 mg delayed release oral capsule (20 sources) Corticosteroid Start: 12-18-2023 End: 11-23-2024 budesonide, enteric coated (ENTOCORT EC) 3 mg 24 hr capsule once daily. 12/18/2023 Active buPROPion hydrochloride 100 mg oral tablet (6 sources) Aminoketone Start: 10-28-2024 take 1 tablet by mouth once daily in the morning buPROPion (WELLBUTRIN) 100 mg tablet Indications: Attention deficit disorder (ADD) in adult Take 1 tablet by mouth once daily. In the morning 90 tablet 1 10/28/2024 Active ciprofloxacin 3 mg/ml / dexamethasone 1 mg/ml otic suspension (3 sources) Corticosteroid, Quinolone Antimicrobial Start: 01-14-2025 ciprofloxacin-dexAM ETHasone (CIPRODEX) 0.3-0.1 % otic suspension Indications: Irritation of left ear Use 4 drops in the ears two times a day. 7.5 mL 01/14/2025 Active Hydrocortisone / Lidocaine (4 sources) Antiarrhythmic, Corticosteroid, Amide Local Anesthetic Start: 04-13-2024 Hydrocortisone 2.5% / Lidocaine 5% Ointment (Cmpd) [Hydrocortisone 2.5%/Lidocaine 5% Ointment (Compound)] (Hydrocortisone ) ointment Active 0 NMA .Route April 13, 2024 1:00am RECTAL SPASMS APPLY TO RECTAL AREA DAILY NEEDED FOR SPASMS Start: 03-23-2024 End: 04-13-2024 Hydrocortisone 2.5% / Lidoca ine 5% Ointment (Cmpd) [Hydrocortisone 2.5%/Lidocaine 5% Ointment (Compound)] (Hydrocortisone ) ointment Discontinued 0 .Route 1 3 March 23, 2024 12:00am April 13, 2024 12:11pm Apply to anal rectal area 3 times a day ibuprofen 200 mg oral tablet (13 sources) Nonsteroidal Anti-inflammatory Drug Start: 05-21-2024 take 1 tablet by mouth every eight hours as needed ibuprofen (MOTRIN IB) 200 mg tablet Take 1 tablet by mouth three times a day as needed for pain. for pain, with food. 05/21/2024 Active Multivitamin (Daily Multi-Vitamin) tablet (2 sources) Start: 12-10-2023 Multivitamin (Daily Multi-Vitamin) tablet Active 1 {tbl} PO DAILY December 10, 2023 12:00am HEALTH MAINTENANCE NIFEdipine (6 sources) Dihydropyridine Calcium Channel Zora Start: 04-17-2024 End: 04-17-2024 NIFEdipine rectal ointment 0.2% (CPD) by RECTAL route two times a day. 20 g 2 04/17/2024 04/17/2024 Discontinued Start: 04-17-2024 End: 05-17-2024 NIFEdipine rectal ointment 0 .2% (CPD) by RECTAL route two times a day. 20 g 2 04/17/2024 05/17/2024 Active oseltamivir 75 mg oral capsule (2 sources) Neuraminidase Inhibitor Start: 07-16-2023 End: 07-21-2023 take 1 capsule by mouth twice daily oseltamivir (TAMIFLU) 75 mg capsule Take 1 capsule by mouth two times a day for 5 days. 10 capsule 0 07/16/2023 07/21/2023 Active Comment on above: Take 1 capsule by [facility] two times a day for 5 days. polyethylene glycol 3350 68170 mg powder for oral solution (13 sources) Osmotic Laxative Start: 05-21-2024 polyethylene glycol 3350 (MIRALAX) 17 gram/dose powder Take 17 g by mouth once daily. Dissolve dose in 4 - 8 ounces of liquid and take as directed. 05/21/2024 Active predniSONE 50 mg oral tablet (7 sources) Start: 11-23-2024 take 1 tablet by mouth once daily Prednisone 50 mg tablet Active 50 mg PO daily 6 0 November 23, 2024 12:00am Start: 06-25-2023 End: 10-09-2023 Prednisone 20 mg tablet Disc ontinued mg PO as needed June 25, 2023 1:00am October 09, 2023 8:58pm Start: 06-25-2023 Prednisone Act gwendolyn MG PO June 25, 2023 1:00am Start: 07-25-2022 End: 2022 take 2 tablets [...] days with food. Take 2 tablets by [facility] once daily for 4 days. For severe low back pain flare up, Take daily with food. RABEprazole sodium 20 mg delayed release oral tablet (20 sources) Proton Pump Inhibitor Start: End: take 1 tablet by mouth once daily RABEprazole (ACIPHEX) 20 mg tablet Indications: Gastroesophageal reflux disease without esophagitis Take 1 tablet by mouth once daily. 90 tablet 3 10/28/2024 Active Start: 11-28-2021 End: 12-28-2021 take 1 tablet by mouth once daily Rabeprazole (Aciphex) 20 mg tablet,delayed release (DR/EC) Discontinued 20 mg PO DAILY 30 30 0 November 28, 2021 12:00am December 27, 2021 12:00am December 28, 2021 12:04am Comment on above: Take 20 mg by mouth once daily. Take 1 tablet by main th once daily. SUMAtriptan 100 mg oral tablet (20 sources) Serotonin-1b and Serotonin-1d Receptor Agonist Start: 06-02-2017 End: 10-28-2024 take 1 tablet by mouth every hour as needed, then take 2 tablets by mouth every twenty-four hours as needed SUMAtriptan (IMITREX) 100 mg tablet Indications: Headaches due to old head injury Take 1 tablet by mouth as needed. take at onset of migraine, May repeat in 1 hour if needed. limit 2 doses in 24 hours. 12 tablet 5 10/28/2024 Active Start: 06-02-2017 take 1 tablet by main th once daily as needed Sumatriptan Succinate (Imitrex) 100 MG tablet Active 100 mg PO DAILY as needed for MIGRAINE June 02, 2017 1:00am Comment on above: Take 1 tablet by main th as needed. take at onset of migraine, May repeat in 1 hour if needed. limit 2 doses in 24 hours. tiZANidine 4 mg oral tablet (20 sources) Central alpha-2 Adrenergic Agonist Start: take 1 tablet by mouth every eight [...] Drug Class(es) Dates Sig (Normalized) Sig (Original) cyclobenzaprine hydrochloride 10 mg oral tablet (2 sources) Muscle Relaxant Start: 07-15-2022 End: 07-25-2022 take 1 tablet by mouth twice daily [...] muscle spasm for up to 10 days. Diltiazem 10mg/Lidocaine 50mg Suppository 30 supp suppository (2 sources) Start: 03-23-2024 End: 04-14-2024 Diltiazem 10mg/Lidocaine 50mg Suppository 30 supp suppository Discontinued 1 NMA RC TWICE A DAY 30 0 March 23, 2024 12:00am April 12, 2024 1:00am April 14, 2024 1:09am RECTAL SPASMS diltiazem HCl (bulk) powder 300 mg; lidocaine (bulk) powder 1500 mg; Per 30 supp esomeprazole 20 mg delayed release oral capsule (2 sources) Proton Pump Inhibitor Start: 12-18-2023 End: 03-24-2024 take 1 capsule by mouth once daily Esomeprazole Magnesium 20 mg capsule,delayed release(DR/EC) Discontinued 20 mg PO DAILY 30 December 18, 2023 12:00am March 24, 2024 12:24pm hydrOXYzine hydrochloride 25 mg oral tablet (12 sources) Antihistamine Start: 02-10-2020 End: 06-25-2023 take 1 tablet by mouth every six hours Hydroxyzine Hcl 25 mg tablet Discontinued 25 mg PO EVERY 6 HOURS August 17, 2021 12:00am June 25, 2023 9:38am Comment on above: Take 1 tablet by main every 6 hours as needed for Itching/Rash. lidocaine 0.05 mg/mg medicated patch (2 sources) Antiarrhythmic, Amide Local Anesthetic Start: 07-15-2022 End: 2022 apply 1 dose transdermal route once daily, [...] (20 sources) Central Nervous System Stimulant Start: 09-21-2024 End: 02-03-2025 take 1 capsule by mouth once daily lisdexamfetamine (VYVANSE) 70 mg capsule Indications: Attention deficit disorder (ADD) in adult Take 1 capsule by mouth once daily for 30 days. Patient should start on October 19, 2024. 30 capsule 10/19/2024 02/03/2025 Discontinued Start: 07-08-2024 End: 09-18-2024 take 1 capsule by mouth once daily lisdexamfetamine (VYVANSE) 70 mg capsule Indications: Attention deficit disorder (ADD) in adult Take 1 capsule by mouth once daily for 30 days. 30 capsule 08/19/2024 09/18/2024 Active Start: 07-08-2024 End: 06-02-2024 take 1 capsule by mouth once daily lisdexamfetamine (VYVANSE) 70 mg capsule Indications: Attention deficit disorder (ADD) in adult Take 1 capsule by mouth once daily for 30 days. Patient should start on July 08, 2024. 30 capsule 07/08/2024 06/02/2024 Discontinued Start: 06-09-2024 End: 10-28-2024 take 1 capsule by mouth once daily lisdexamfetamine (VYVANSE) 70 mg capsule Indications: Attention deficit disorder (ADD) in adult Take 1 capsule by mouth once daily for 30 days. 30 capsule 06/12/2024 10/28/2024 Discontinued Start: 06-09-2024 End: 06-02-2024 take 1 capsule by mouth once daily lisdexamfetamine (VYVANSE) 70 mg capsule Indications: Attention deficit disorder (ADD) in adult Take 1 capsule by mouth once daily for 30 days. Patient should start on June 09, 2024. 30 capsule 06/09/2024 06/02/2024 Discontinued Start: 06-25-2023 take 70 mg by mouth once daily Lisdexamfetamine Active 70 MG PO DAILY June 25, 2023 9:39am Start: 04-09-2023 End: 08-07-2024 take 1 capsule by mouth once daily Lisdexamfetamine (Vyvanse) 70 mg capsule Active 70 mg PO DAILY March 24, 2024 12:00am ADHD Start: 03-05-2023 End: 04-04-2023 take 1 capsule [...] 0 02/06/2023 03/05/2023 Discontinued Start: 06-19-2021 End: 03-24-2024 take 1 capsule by mouth once daily Lisdexamfetamine 50 mg capsule Discontinued 70 mg PO DAILY 0 June 25, 2023 9:39am March 24, 2024 3:16pm Comment on above: Take 1 capsule by [...] 28, 2022. Take 1 capsule by mo ut once daily for 30 days. Do not start before July 31, 2023. Take 1 capsule by mo uth once daily for 30 days. Do not start before July 04, 2023. oxyCODONE hydrochloride 5 mg oral tablet (2 sources) Opioid Agonist Start: End: take 1 tablet by mouth three times daily as needed for pain Oxycodone 5 mg tablet Discontinued 5 mg PO THREE TIMES A DAY as needed for PAIN 30 10 0 March 23, 2024 April 01, 2024 1:00am April 02, 2024 1:08am Rectal pain Other specified diseases of anus and rectum varenicline 1 mg oral tablet (6 sources) Partial Cholinergic Nicotinic Agonist Start: 8 End: 4 take 1 tablet by mouth once daily Varenicline Tartrate (Chantix) 1 MG tablet Discontinued 1 mg PO DAILY June 02, 2017 1:00am June 25, 2023 9:39am Problems Active Problems Problem Classification Problem Date Documented Da te Episodic/Chronic Disorders of lipid metabolism (20 sources) Dyslipidemia; Translations: [Hyperlipidemia, unspecified] Onset: 3 Chronic Disorders usually diagnosed in infancy, childhood, or adolescence (20 sources) Adult attention deficit hyperactivity disorder ; Translations: [Other specified behavioral and emotional disorders with onset usually occurring in childhood and adolescence] Onset: 2 Chronic Diverticulosis and diverticulitis (1 source) Diverticulosis of large intestine without perforation or abscess without bleeding; Translations: [Diverticulosis of large intestine without perforation or abscess without bleeding] Onset: 4 Chronic Esophageal disorders (20 sources) Gastroesophageal reflux disease without esophagitis; Translations: [Gastro-esophageal reflux disease without esophagitis] Onset: 6 09-06-2015 Chronic Immunizations and screening for infectious disease (6 sources) Contact with or exposure to other viral diseases; Translations: [Lab test negative for COVID-19 virus] 02-23-2021 Episodic Influenza (1 source) Influenza due to Influenza A virus; Translations: [Influenza due to other identified influenza virus with other respiratory manifestations] 07-16-2023 Episodic Nonspecific chest pain (2 sources) Chest pain; Translations: [Chest pain, unspecified] 10-18-2023 Episodic Other bone disease and musculoskeletal deformities (20 sources) Segmental and somatic dysfunction; Translations: [Segmental and somatic dysfunction of cervical region] 01-22-2022 Episodic Other bone disease and musculoskeletal deformities (10 sources) Segmental and somatic dysfunction of cervical region; Translations: [Nonallopathic lesions, cervical region] Episodic Other bone disease and musculoskeletal deformities (10 sources) Segmental and somatic dysfunction of lumbar region; Translations: [Nonallopathic lesions, lumbar region] Episodic Other bone disease and musculoskeletal deformities (10 sources) Segmental and somatic dysfunction of pelvic region; Translations: [Nonallopathic lesions, pelvic region] Episodic Other bone disease and musculoskeletal deformities (10 sources) Segmental and somatic dysfunction of thoracic region; Translations: [Nonallopathic lesions, thoracic region] Episodic Other ear and sense organ disorders (1 source) Irritation of ear; Translations: [Other specified disorders of left ear] 01-14-2025 Episodic Other ear and sense organ disorders (1 source) Other specified disorders of left ear; Translations: [Irritation of left ear] Onset: 5 Episodic Other gastrointestinal disorders (2 sources) H/O: gastrointestinal disease; Translations: [Personal history of other diseases of the digestive system] 04-09-2024 Episodic Other non-traumatic joint disorders (3 sources) Instability of joint of left ankle; Translations: [Other instability, left ankle] 06-25-2023 Episodic Other non-traumatic joint disorders (1 source) Other instability, left ankle; Translations: [Other joint derangement, not elsewhere classified, ankle and foot] 06-25-2023 Episodic Other upper respiratory disease (6 sources) Respiratory tract congestion; Translations: [Nasal congestion] 02-23-2021 Episodic Other upper respiratory infections (1 source) Acute upper respiratory infection; Translations: [Acute upper respiratory infection, unspecified] 07-16-2023 Episodic Residual codes; unclassified (1 source) Pain, unspecified; Translations: [Pain, unspecified] Onset: Episodic Sprains and strains (2 sources) Strain of foot; Translations: [Strain of unspecified muscle and tendon at ankle and foot level, right foot, initial encounter] 11-23-2024 Episodic Substance-related disorders (20 sources) Tobacco user; Translations: [Nicotine dependence, unspecified, uncomplicated] Onset: 6 09-06-2015 Chronic Past or Other Problems Problem Classification Problem Date Documented Da te Episodic/Chronic Abdominal pain (6 sources) Left flank pain; Translations: [Unspecified abdominal pain] Onset: 04-14-2024 05-03-2022 Episodic Administrative/social admission (7 sources) Special examination performed; Translations: [Encounter for other administrative examinations] Onset: 03-18-2024 05-08-2019 Episodic Anal and rectal conditions (20 sources) Rectal pain; Translations: [Other specified diseases of anus and rectum] Onset: 04-17-2024 04-10-2024 Episodic Calculus of urinary tract (20 sources) Ureteric stone; Translations: [Calculus of ureter] Onset: 07-25-2022 Episodic Cardiac dysrhythmias (4 sources) Palpitations; Translations: [Palpitations] Onset: 01-29-2024 11-19-2023 Episodic Gastrointestinal hemorrhage (12 sources) Rectal hemorrhage; Translations: [Hemorrhage of anus and rectum] Onset: 04-17-2024 04-10-2024 Episodic Headache; including migraine (20 sources) Headache; Translations: [Post-traumatic headache, unspecified, not intractable] Onset: 07-25-2022 Episodic Hemorrhoids (3 sources) Hemorrhoids; Translations: [Unspecified hemorrhoids] Onset: 04-27-2024 10-09-2023 Episodic Other and unspecified benign neoplasm (1 source) Benign neoplasm of rectum; Translations: [Benign neoplasm of rectum] Onset: 04-27-2024 Episodic Other injuries and conditions due to external causes (1 source) Unspecified injury of head, sequela; Translations: [Headaches due to old head injury] Onset: 07-25-2022 Episodic Other liver diseases (1 source) Hepatic failure, unspecified without coma; Translations: [Hepatic failure, unspecified without coma] Onset: 05-07-2024 Episodic Other screening for suspected conditions (not mental disorders or infectious disease) (20 sources) Patient encounter status; Translations: [Encounter for screening for other disorder] Onset: 10-28-2014 10-28-2014 Episodic Spondylosis; intervertebral disc disorders; other back problems (20 sources) Dorsalgia, unspecified; Translations: [Backache, unspecified] Onset: 07-25-2022 Episodic Results Test Name Value Interpretation Reference Range Facility [facility] 01-14-2025 CNOV Office Visit (WOUCA) MARIAN BARBER ([id number]) 1985 M Date Time Provider Department 01/14/25 11:30 AM SYBIL MIKE During your visit today, we recorded the following information about you: Temperature Pulse Respiration Blood pressure 98.3 degrees 83/minute 19/minute 140/102 Weight 94.7 kg MckenzieSybil wellsMANDY 01/14/2025 11:42 AM Signed U[facility]ENT [facility]ARE BOO Swapnil Barber is a 39 year old male. Patient presents with: Ear Problem: Left ear pain, also dried blood in ear x 2 days HPI Patient presents today complaining of an irritation/fullness sensation in his left ear which has been ongoing for the last several weeks. Patient does note that over the last week or so he has been noticing some dried blood in the ear canal when he uses a Q-tip. Patient has a history of traumatic brain injury while he was in the [employer] a number of years ago and had bleeding in his ear at that time and is concerned that he might have a ruptured eardrum or some other trauma to the ear. Patient otherwise denies any fever cough congestion or trauma to his ear. Review of Systems As above Objective BP 140/102 Pulse 83 Temp 36.8 ?C (98.3 ?F) Resp 19 Wt 94.7 kg (208 lb 12.4 oz) SpO2 95% BMI 33.16 kg/m? Physical Exam Vitals and nursing note reviewed. Constitutional: General: He is not in acute distress. Appearance: Normal appearance. He is not ill-appearing. HENT: Head: Normocephalic. Right Ear: Tympanic membrane and ear canal normal. Left Ear: Tympanic membrane normal. Ears: Comments: At the 11 o'clock position in the mid left ear canal there is an area of excoriated/irritated skin. Pulmonary: Effort: Pulmonary effort is normal. Musculoskeletal: General: Normal range of motion. Skin: General: Skin is warm. Neurological: General: No focal deficit present. Mental Status: He is alert and oriented to person, place, and time. Psychiatric: Mood and Affect: Mood normal. Behavior: Behavior normal. {ASSESSMENT/PLAN: 1. Irritation of left ear - ICD9: 388.8, ICD10: H93.8X2 -Discussed with patient that there is no sign of rupture of the tympanic membrane or trauma to the left ear canal however there was an area of irritated/excoriated skin. Patient does admit to using Q-tips frequently and I discussed with him he should avoid doing this to avoid further irritation of the ear. Area does not look fungal as the skin is not boggy surrounding the area. Patient was started on Ciprodex eardrops for symptomatic relief and patient was instructed to follow-up with PCP or ENT if symptoms do not improve - CIPROFLOXACIN 0.3 %-DEXAMETHASONE 0.1 % EAR DROPS,SUSPENSION Sybil Mike APRN.PAINTING TECHNICIAN Management Management of the patient was discussed with:other (see comment) Discussion with other healthcare resource(s) included: Nurse practitioner in office Disposition The patient was discharged. Procedures Allergies As of Date: 01/14/2025 Noted Allergy Reaction AMOXICILLIN 01/30/2005 4 - Hives SEPTRA DS (SULFAMETHOXAZOLE-TRIME *01/30/2005 4 - Hives Date Reviewed: 01/14/2025 Reviewed by: Sybil Mike APRN.PAINTING TECHNICIAN - Fully Assessed Reason for Visit: Ear Problem [38] Cmt: Left ear pain, also dried blood in ear x 2 days Primary Visit Diagnosis:Irritation of left ear [H93.8X2] Order(s):ciprofloxacin- dexAMETHasone (CIPRODEX) 0.3-0.1 % otic suspensionUse 4 drops in the ears two times a day.Disp: 7.5 mLRfl: 0 Prescriptions as of 01/14/2025 - ciprofloxacin-dexAMETHa sone (CIPRODEX) 0.3-0.1 % otic suspension Use 4 drops in the ears two times a day. - SUMAtriptan (IMITREX) 100 mg tablet Take 1 tablet by mouth as needed. take at onset of migraine, May repeat in 1 hour if needed. limit 2 doses in 24 hours. - RABEprazole (ACIPHEX) 20 mg tablet Take 1 tablet by mouth once daily. - buPROPion (WELLBUTRIN) 100 mg tablet Take 1 tablet by mouth once daily. In the morning - lisdexamfetamine (VYVANSE) 70 mg capsule Take 1 capsule by mouth once daily for 30 days. Patient should start on October 19, 2024. - dextroamphetamine-amphe tamine (ADDERALL) 20 mg tablet Take 1 tablet by mouth two times a day for 30 days. In the afternoon as needed for focus/concentration Patient should start on October 15, 2024. - acetaminophen (TYLENOL EXTRA STRENGTH) 500 mg tablet Take 2 tablets by mouth every 6 hours as needed for pain. - ibuprofen (MOTRIN IB) 200 mg tablet Take 1 tablet by mouth three times a day as needed for pain. for pain, with food. - polyethylene glycol 3350 (MIRALAX) 17 gram/dose powder Take 17 g by mouth once daily. Dissolve dose in 4 - 8 ounces of liquid and take as directed. - budesonide, enteric coated (ENTOCORT EC) 3 mg 24 hr capsule once daily. - tiZANidine (ZANAFLEX) 4 mg tablet Take 1 tablet by mouth every 8 hours as needed (muscle spasm low back). Problem List As Of Date 01/14/2025 Not (more content not included)... Normal [facility] ([id number]) 1985 M Date Time Provider Department 01/11[facility] During your visit today, we recorded the following information about you: Loni Sanz LPN 01/11/2025 1:42 PM S[address] Good afternoon Dr. Michel, I wanted to send you a message to inform you that I have stopped taking the Wellbutrin that you prescribed last visit. It was making me severely depressed, agitated, and anxious. I am currently just taking the rest of the Adderall I had left, but I only have enough for another week. I?m not sure what you want to try next. Thank you for your help. Hien Rivas APRN.JASMINA 01/14/2025 9:27 AM Signed Needs appointment to discuss and prescribe medications. Thank you, Hien Rivas APRN.Anna Funes 01/14/2025 10:12 AM Signed Contacted patient, he declined to schedule an appointment, stating he and Dr. Michel had a plan, He will send another [employer]drewsey message. Ana Birmingham, CRUZ 01/18/2025 1:41 PM Signed Patient's calls and is asking for Dr. Michel to review request below. Please review and advise, CRUZ Hansen Jordan L, DO 01/19/2025 7:40 AM Signed Is he asking for help with quitting use of tobacco? If so, can consider Chantix or hypnotherapy If talking about depression/anxiety medication, can consider starting on Prozac or Celexa Thanks Saroj Michel DO Allergies As of Date: 01/11/2025 Noted Allergy Reaction AMOXICILLIN 01/30/2005 4 - Hives SEPTRA DS (SULFAMETHOXAZOLE-TRIME *01/30/2005 4 - Hives Date Reviewed: 10/28/2024 Reviewed by: Loni Sanz LPN - Fully Assessed Prescriptions as of 01/19/2025 - ciprofloxacin-dexAMETHa sone (CIPRODEX) 0.3-0.1 % otic suspension Use 4 drops in the ears two times a day. - SUMAtriptan (IMITREX) 100 mg tablet Take 1 tablet by mouth as needed. take at onset of migraine, May repeat in 1 hour if needed. limit 2 doses in 24 hours. - RABEprazole (ACIPHEX) 20 mg tablet Take 1 tablet by mouth once daily. - buPROPion (WELLBUTRIN) 100 mg tablet Take 1 tablet by mouth once daily. In the morning - lisdexamfetamine (VYVANSE) 70 mg capsule Take 1 capsule by mouth once daily for 30 days. Patient should start on October 19, 2024. - dextroamphetamine-amphe tamine (ADDERALL) 20 mg tablet Take 1 tablet by mouth two times a day for 30 days. In the afternoon as needed for focus/concentration Patient should start on October 15, 2024. - acetaminophen (TYLENOL EXTRA STRENGTH) 500 mg tablet Take 2 tablets by mouth every 6 hours as needed for pain. - ibuprofen (MOTRIN IB) 200 mg tablet Take 1 tablet by mouth three times a day as needed for pain. for pain, with food. - polyethylene glycol 3350 (MIRALAX) 17 gram/dose powder Take 17 g by mouth once daily. Dissolve dose in 4 - 8 ounces of liquid and take as directed. - budesonide, enteric coated (ENTOCORT EC) 3 mg 24 hr capsule once daily. - tiZANidine (ZANAFLEX) 4 mg tablet Take 1 tablet by mouth every 8 hours as needed (muscle spasm low back). Problem List As Of Date 01/11/2025 Noted Resolved Screening for other and unspecified genitourina*10/28/2014 Gastroesophageal reflux disease without esophag*09/06/2015 Tobacco use disorder [F17.200] 09/06/2015 Gastroesophageal reflux disease with esophagiti*06/19/2021 Attention deficit disorder (ADD) in adult [F98.*06/19/2021 Dyslipidemia [E78.5] 07/25/2022 Ureterolithiasis [N20.1] 07/25/2022 Radiculopathy of lumbar region [M54.16] 07/25/2022 Headaches due to old head injury [G44.309, S09.*07/25/2022 Chronic midline low back pain with bilateral sc*07/25/2022 Well adult exam [Z00.00] 01/23/2023 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 Saroj Michel, DO Status: REG CLI Study: Foot min 3 Views Date of Exam: 11/23/24 Exam# [id number] Ordering Dr: Blu Langston PA PROCEDURE: FOOT MIN 3 VIEWS 11/23/2024 REASON FOR EXAM: 1ST MTP PAIN TECHNIQUE: Three-view right foot series COMPARISON: None. RAD/Foot min 3 Views IMPRESSION: And lateral imaging, a moderate posterior calcaneal enthesophyte is noted. Normal contour of the Achilles tendon is noted. Minimal degenerative changes are seen of the right 1st metatarsophalangeal joint, without significant joint narrowing or hallux valgus deformity. No evidence of inflammatory arthritis. No fracture or dislocation is noted. Reading Location: [facility] CC: Dr. 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 Normal [facility] Urgent Care Visit Reporton 0 11-23-2024 Urgent Care Visit Report [facility] [address], [address] [place] [address] OFFICE VISIT Date of Service: 11/23/24 MR#: [id number] Acct: [id number] Name: MARIAN BARBER Rep #: [id number] : 1985 Provider: WILMER Caal Age/Sex: 39/M Location[facility] Status: Signed Intake Vital Signs 04/10/24 09:03 11/23/24 09:16 Height 5 ft 6 in BP 120/78 Blood Pressure Location Lt brachial Position Sitting Respiration 16 Pulse 61 Pulse Source NIBP Temp 98.6 F Temp Source Oral Pulse Oximetry (%) 98 Intake Visit Reasons: R FOOT PAIN Chief Complaint: Right foot pain 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 Has difficulty/pain while walking; 6 out of 10, but no pain while sitting. Has been taking ibuprofen for pain. [facility] Medical History (Updated 11/23/24 @ 12:02 by Blu GUILLEN, PA) Right foot strain Diverticulosis Carrington esophagus Wears glasses Wears contact lenses Kidney stones Migraine headache Injury of head and neck Gastric reflux Chewing tobacco dependence Asthma History of stress test Hemorrhoids Traumatic brain injury Left ankle instability Hypercholesteremia Vasectomy evaluation ADHD Tobacco use GERD (gastroesophageal reflux disease) Lab test negative for COVID-19 virus Surgical History Hx of vasectomy Social History Smoking Status: Never smoker HPI HPI Chief Complaint: Right foot pain Details: MARIAN BARBER, is a 39 M who presents to the office today for approximately 1 week history of progressively worsening right medial foot/arch tenderness of unknown etiology without history of trauma to the same. No changes in hydration or dietary intake and no history of trauma/injury to the same. PMH NC. No zqun-[id number]-pfqaiwe medications taken to assist. No right ankle/knee complaints. No other associated symptoms and no alleviating/aggravating factors. ROS Const Constitutional: No other (As above) Exam Const General: cooperative, healthy appearing and no acute distress Orientation: alert and awake Resp Effort Inspection: normal respiratory effort and able to speak in complete sentences Cardio Rate: regular rate Pulses: radial pulses present Skin General: no rashes or lesions noted Neuro General: patient alert and patient awake Cognition: normal cognition Speech: speech normal Motor: muscle tone normal throughout Sensory Exam: no sensory deficits noted Extrem General: normal to inspection, full ROM, capillary refill normal and normal exam except as noted (Guarded gait favoring RLE; tender to touch right medial foot/arch) Other: Right ankle/foot: Unguarded FAROM though pain with inversion to resistance to medial foot, negative drawer, no Achilles step-off or palpable tender, and no plantar fascial tenderness to palpation throughout. Psych Appearance: grossly normal Mental Status: mental status grossly normal Mood: congruent mood Affect: normal affect Speech and Movement: speech and movement normal Attitude: cooperative Coding Level of Care Code Off vis,est,level 4 Diagnoses Right foot strain S96.911A Assessment and Plan Assessment and Plan (1) Right foot strain: Status: Acute Plan: Right foot radiographs taken today reveal no acute osseous pathology per my review, pending radiologist interpretation time patient discharge. Supportive measures including rest, ice, elevate as needed for symptomatic relief. Prednisone as prescribed today. Follow-up with PCP or orthopedics in 5 to 7 days should symptoms not improve, sooner should symptoms only worsen or any other concerns develop. Patient states acknowledging understanding all the above. This note was generated with [employer] dictation software. It may contain incorrect words, spelling, and punctuation that were not noted in checking the note before signing. Orders: Orders Foot min 3 Views Today R52 - Pain, unspecified Medications: New prednisone 50 mg PO QDAY 6 tabs 0RF Discontinued budesonide DR-ER Discontinued Reason: Discontinued by PCP/other physicians 6 mg (2 x 3 mg) PO DAILY 60 ea 5RF CROHNS DISEASE Plan Details Goals Barriers: Goals Decrease spasm Improve posture Decrease inflammati (more content not included)... [facility] Visit (FAMP[facility] ) MARIAN BARBER Gopi ([id number]) 1985 M Date Time Provider Department 10/28/24 1:00 PM [facility] During your visit today, we recorded the following information about you: Temperature Pulse Respiration Blood pressure 98 degrees 80/minute 12/minute 134/88 Weight Height 94.8 kg 1.69 m Saroj Michel DO 10/28/2024 1:58 PM Signed CC: Marian Nguyễn Sunil is a 39 year old male who presents to the office for physical HPI: ADD, long standing, has been taking the vyvanse 70 mg and then later the Adderall 20 mg short acting. 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 He would like to try something different that is a non stimulant to see if this benefits him Last year he was diagnosed with rectal fissure. Saw a colorectal specialist in Apr 2024 and had procedure at [facility] [place] 05/21/2024 with resolution of symptoms. No topical medications or rectal Botox which was done on 03/27 at [facility] by Dr. 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 Aguayo and treated with budesonide He has been able to quit oral use of tobacco 2 years ago. 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 [facility] IED; Residual headache, hearing loss, vision dominguez PAST SURGICAL HISTORY Procedure Laterality Date PAST SURGICAL HISTORY OF botox for fissure VASECTOMY UNI/BI SPX W/POSTOP SEMEN EXAMS Social History: Social History Tobacco Use Smoking status: Never Smokeless tobacco: Current Types: Chew Tobacco comments: chews tobacco Substance Use Topics Alcohol use: Yes Comment: rare FAMILY HISTORY Problem Relation Age of Onset Lymphoma Mother 49 Heart Maternal Grandmother [place], CHF other (lupus) Maternal Grandmother Diabetes Maternal Grandfather Alzheimer's Disease Paternal Grandfather dementia Heart Paternal Grandfather Kidney Disease Paternal Grandfather other (healthy) Daughter other (healthy) Son gerd Colon Cancer No Family History Rectal Cancer No Family History Current Outpatient prescriptions: SUMAtriptan (IMITREX) 100 mg tablet Take 1 tablet by mouth as needed. take at onset of migraine, May repeat in 1 hour if needed. limit 2 doses in 24 hours. RABEprazole (ACIPHEX) 20 mg tablet Take 1 tablet by mouth once daily. buPROPion (WELLBUTRIN) 100 mg tablet Take 1 tablet by mouth once daily. In the morning lisdexamfetamine (VYVANSE) 70 mg capsule Take 1 capsule by mouth once daily for 30 days. Patient should start on October 19, 2024. dextroamphetamine-amphe tamine (ADDERALL) 20 mg tablet Take 1 tablet by mouth two times a day for 30 days. In the afternoon as needed for focus/concentration Patient should start on October 15, 2024. acetaminophen (TYLENOL EXTRA STRENGTH) 500 mg tablet Take 2 tablets by mouth every 6 hours as needed for pain. ibuprofen (MOTRIN IB) 200 mg tablet Take 1 tablet by mouth three times a day as needed for pain. for pain, with food. polyethylene glycol 3350 (MIRALAX) 17 gram/dose powder Take 17 g by mouth once daily. Dissolve dose in 4 - 8 ounces of liquid and take as directed. budesonide, enteric coated (ENTOCORT EC) 3 mg 24 hr capsule once daily. tiZANidine (ZANAFLEX) 4 mg tablet Take 1 tablet by mouth every 8 hours as needed (muscle spasm low back). (Patient not taking: Reported on 04/17/2024) Allergies: ALLERGIES Allergen Reactions Amoxicillin Hives Septra Ds [Sulfamet* Hives ROS: See HPI PE: 10/28/24 1248 BP: 134/88 Pulse: 80 Resp: 12 Temp: 36.7 ?C (98 ?F) TempSrc: Right Tympanic Weight: 94.8 kg (209 lb) Height: 169 cm (5' 6.54) Gen: AANDO, NAD, non-toxic appearing, Pleasant, cooperative HEENT: NT/AC, PERRLA, EOMs intact b/l, nares clear and patent b/l, pharynx without erythema, exudate or lesions. Uvula midline. EACs without erythema or debris. TMs pearly [...] No rashes or lesions on exposed skin. Central overweight ASSESSMENT/PLAN: 1. Well adult exam - ICD9: V70.0, ICD10: Z00.00 (primary (more content not included)... Normal [facility] Office Visit Reporton 2024 Office Visit Report [facility] [address] [place] [address] OFFICE VISIT Date of Service: 07/29/24 MR#: [id number] Acct: [id number] Patient: MARIAN BARBER Rep #: [id number] : 1985 Provider: WILMER Caal Age/Sex: 39/M Location: [facility] Status: Signed Intake Vital Signs 04/10/24 09:03 Height 5 ft 6 in Intake Visit Reasons: AUDIOGRAM, TITMUS / WFD Chief Complaint: rectal pain Allergies amoxicillin Allergy (Verified 04/09/24 15:12) Hives Sulfa (Sulfonamide Antibiotics) Allergy (Verified 04/09/24 15:12) Hives sulfamethoxazole (From Septra) Allergy (Verified 04/09/24 15:12) Hives trimethoprim (From Septra) Allergy (Verified 04/09/24 15:12) Hives Office Procedures [facility] Billing Sheet Testing Hearing (Audiogram) Test: Yes Titmus Screening: Yes Employer Workplace Physicals Physical Exam: Yes Assessment and Plan Plan Details Goals Barriers: Goals Decrease spasm Improve posture Decrease inflammation Barriers Loss of cervical lordosis Decrease disc at L4/L5 and L5/S1 08/10/24613 Date Blu Jaquezign Signature: Date (if applicable) CC: Normal [facility] Urgent Care Visit Reporton 0 2024 Urgent Care Visit Report [facility] [address], [address] [place] [address] OFFICE VISIT Date of Service: 07/29/24 MR#: [id number] Acct: [id number] Name: MARIAN BARBER Rep #: [id number] : 1985 Provider: WILMER Caal Age/Sex: 39/M Location: [facility] Status: Signed Intake Vital Signs 04/10/24 09:03 Height 5 ft 6 in Intake Visit Reasons: FF PHYSICAL/ WFD Chief Complaint: rectal pain Allergies amoxicillin Allergy (Verified 04/09/24 15:12) Hives Sulfa (Sulfonamide Antibiotics) Allergy (Verified 04/09/24 15:12) Hives sulfamethoxazole (From Janra) Allergy (Verified 04/09/24 15:12) Hives trimethoprim (From Janra) Allergy (Verified 04/09/24 15:12) Hives PFSH Medical History Diverticulosis Carrington esophagus Wears glasses Wears contact lenses Kidney stones Migraine headache Injury of head and neck Gastric reflux Chewing tobacco dependence Asthma History of stress test Hemorrhoids Traumatic brain injury Left ankle instability Hypercholesteremia Vasectomy evaluation ADHD Tobacco use GERD (gastroesophageal reflux disease) Lab test negative for COVID-19 virus Surgical History Hx of vasectomy Social History Smoking Status: Never smoker HPI HPI Chief Complaint: rectal pain Details: MARIAN BARBER, is a 39 M who presents to the office today for Office Procedures Physical Exam Coding PE Coding Additional Details: faculty administrator pe Coding Level of Care Code No Charge Diagnoses 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 Z02.89 Assessment and Plan Assessment and Plan (1) 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: Status: Acute Plan Details Goals Barriers: Goals Decrease spasm Improve posture Decrease inflammation Barriers Loss of cervical lordosis Decrease disc at L4/L5 and L5/S1 07/29/24 0839 Date Blu Phelan Signature: Date (if applicable) CC: Normal [facility] CNCOon 06-02-2024 CNCO Letter Text Normal [facility] CNPLolita 06-01-2024 CNPN Telephone [facility] SUNILMARIAN Gopi ([id number]) 1985 M Date Time Provider Department 06/01/24 CRIS SANDHU During your visit today, we recorded the following information about you: Eitan CruzEsha nguyễn 06/01/2024 11:53 AM Signed Marian Nguyễn Sunil [phone], says RTW form was blank when return to employer. Also, he ask if he should return to work while still having drainage/discharge. Yolanda Lujan, CRUZ 06/02/2024 9:08 AM Signed Responded via [employer]. Allergies As of Date: 06/01/2024 Noted Allergy Reaction AMOXICILLIN 01/30/2005 4 - Hives SEPTRA DS (SULFAMETHOXAZOLE-TRIME *01/30/2005 4 - Hives Date Reviewed: 05/21/2024 Reviewed by: Kim Youngblood, CRUZ - Fully Assessed Reason for Visit: Patient Question [6127] Care Coordination [2081] Prescriptions as of 06/02/2024 - dextroamphetamine-amphe tamine (ADDERALL) 20 mg tablet Take 1 tablet by mouth two times a day for 30 days. In the afternoon as needed for focus/concentration Patient should start on July 08, 2024. - dextroamphetamine-amphe tamine (ADDERALL) 20 mg tablet Take 1 tablet by mouth two times a day for 30 days. In the afternoon as needed for focus/concentration Patient should start on June 09, 2024. - lisdexamfetamine (VYVANSE) 70 mg capsule Take 1 capsule by mouth once daily for 30 days. Patient should start on July 08, 2024. - lisdexamfetamine (VYVANSE) 70 mg capsule Take 1 capsule by mouth once daily for 30 days. Patient should start on June 09, 2024. - RABEprazole (ACIPHEX) 20 mg tablet Take 1 tablet by mouth once daily. - acetaminophen (TYLENOL EXTRA STRENGTH) 500 mg tablet Take 2 tablets by mouth every 6 hours as needed for pain. - ibuprofen (MOTRIN IB) 200 mg tablet Take 1 tablet by mouth three times a day as needed for pain. for pain, with food. - polyethylene glycol 3350 (MIRALAX) 17 gram/dose powder Take 17 g by mouth once daily. Dissolve dose in 4 - 8 ounces of liquid and take as directed. - dextroamphetamine-amphe tamine (ADDERALL) 20 mg tablet Take 1 tablet by mouth two times a day for 30 days. In the afternoon as needed for focus/concentration Patient should start on May 11, 2024. - budesonide, enteric coated (ENTOCORT EC) 3 mg 24 hr capsule once daily. - SUMAtriptan (IMITREX) 100 mg tablet Take 1 tablet (100 mg) by mouth as needed. take at onset of migraine, May repeat in 1 hour if needed. limit 2 doses in 24 hours. - tiZANidine (ZANAFLEX) 4 mg tablet Take 1 tablet by mouth every 8 hours as needed (muscle spasm low back). Problem List As Of Date 06/01/2024 Noted Resolved Screening for other and unspecified genitourina*10/28/2014 Gastroesophageal reflux disease without esophag*09/06/2015 Tobacco use disorder [F17.200] 09/06/2015 Gastroesophageal reflux disease with esophagiti*06/19/2021 Attention deficit disorder (ADD) in adult [F98.*06/19/2021 Dyslipidemia [E78.5] 07/25/2022 Ureterolithiasis [N20.1] 07/25/2022 Radiculopathy of lumbar region [M54.16] 07/25/2022 Headaches due to old head injury [G44.309, S09.*07/25/2022 Chronic midline low back pain with bilateral sc*07/25/2022 Well adult exam [Z00.00] 01/23/2023 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 Author Type: Physician Type: Anesthesia Postprocedure Evaluation Filed: 05/22/2024 10:24 Note Text: POST ANESTHESIA EVALUATION NOTE : 1985 Procedure Summary Date: 05/21/24 Room / Location: [address] [facility] Anesthesia Start: 1352 Anesthesia Stop: 1435 Procedures: EXAM UNDER ANESTHESIA RECTAL (Anus) SPHINCTEROTOMY ANAL (Anus) Diagnosis: Anal fissure (Anal fissure [K60.2]) Surgeons: Cris Sandhu MD Responsible Provider: Sony Hunt MD Anesthesia Type: general ASA Status: 2 Anesthesia Type: general Airway Type: LMA Last Vitals Vitals Value Taken Time BP 114/73 05/21/24 1515 Temp 36.2 ?C (97.2 ?F) 05/21/24 1435 HR SpO2 66 05/21/24 1515 Resp See pacu record 05/22/24 1024 SpO2 98 % 05/21/24 1516 Vitals shown include unfiled device data. Post Anesthesia Patient Status Patient Evaluation: bedside. Anticipated Disposition: phase 2 then home. Neurological Status: aware and responsive. Pulmonary Status: breathing comfortably on supplemental oxygen Airway Control: returned to baseline unsupported. Cardiovascular Status: stable. Pain Management: clinically adequate - multimodal analgesia pain management approach Postoperative Hydration: acceptable. Intraoperative Events: no significant anesthesia events Post Operative Nausea/Vomiting Status: no significant post operative nausea or vomiting Recommendation: continue current plan of care and further care per PACU/ICU/floor team. Anesthesia Observations No Documentation SIGNATURE: Sony Hunt MD PATIENT NAME: Marian Nguyễn Barber DATE: May 22, 2024 TIME: 10:24 AM CSN: [id number] Normal [facility] ANES PRE-OPon 05-21-2024 ANES PRE-OP HNO ID: [id number] Author: SONY HUNT MD Service: ? Author Type: Physician Type: Anesthesia Preprocedure Evaluation Filed: 05/21/2024 13:23 Note Text: ANESTHESIOLOGY DAY OF SURGERY NOTE : 1985 Procedure Information Date/Time: 05/21/24 1706 Procedures: EXAM UNDER ANESTHESIA RECTAL (Anus) SPHINCTEROTOMY ANAL (Anus) Location: MAIN [address] [facility]IN [facility] Surgeons: Cris Sandhu MD Estimated body mass index is 32.6 kg/m? as calculated from the following: Height as of 04/17/24: 167.6 cm (5' 6). Weight as of 05/08/24: 91.6 kg (202 lb). Most recent hematocrit and potassium results: Hematocrit 44.6 06/22/2021 Potassium 3.8 06/22/2021 Relevant Problems GI (+) Gastroesophageal reflux disease with esophagitis and hemorrhage (+) Gastroesophageal reflux disease without esophagitis NEURO-PSYCH (+) Headaches due to old head injury I - PHYSICAL EVALUATION AIRWAY Patient intubated: No. Tracheostomy tube not present Mallampati: II. TM distance: >3 FB. Neck ROM: full ROM without neurological symptoms. Mouth opening: adequate. Short neck: no. Thick neck: no Aguirre present: no Microretrognathia/Micro nagthia/Recessed Chin: No DENTAL Dental findings: teeth intact. Additional exam findings: no II - ANESTHESIA PLAN ASA Score: 2 Anesthetic Plan: general Airway type: LMA The patient is not a current smoker. NPO Status: adequate Beta Zora Administration of chronic beta zora medication not planned. Monitoring Plan Monitoring plan: standard ASA. Post Procedure Analgesic Plan Postoperative analgesic plan: multimodal analgesia and parenteral or oral opioids. Informed Consent Anesthetic risks, benefits, alternatives, personnel and consent discussed: yes. Patient / Responsible Alliance Party agrees to proceed: yes Patient / Surrogate agrees to blood products: Yes DNR status reviewed with patient and/or family prior to surgery. patient elects to suspend DNR status in the perioperative setting (Full Code). Significant changes in the patient condition since the History and Physical, not otherwise documented in primary service progress note: no. Potential Anesthesia issues that may suggest increased risk of complications or contraindication to planned procedure: none. Discussed the possibility of lip / dental damage: yes Vitals Value Taken Time BP 137/93 05/21/24 1249 Pulse 71 05/21/24 1249 Resp 16 05/21/24 1249 Temp 36.7 ?C (98.1 ?F) 05/21/24 1249 SpO2 98 % 05/21/24 1249 Facility-Administered Medications as of 05/21/2024 Medication Dose Route Frequency lidocaine (PF) 10 mg/mL (1 %) 1-2 mg injection (XYLOCAINE) 0.1-0.2 mL INTRADERMAL PRN Or lidocaine 1% 0.25 mL subcutaneous j-tip syringe (XYLOCAINE) 0.25 mL SUBCUTANEOUS PRN NaCl 0.9% iv flush bag 20 mL INTRAVENOUS PRN Outpatient Medications as of 05/21/2024 Medication Sig budesonide, enteric coated (ENTOCORT EC) 3 mg 24 hr capsule once daily. [] NIFEdipine rectal ointment 0.2% (CPD) by RECTAL route two times a day. SUMAtriptan (IMITREX) 100 mg tablet Take 1 tablet (100 mg) by mouth as needed. take at onset of migraine, May repeat in 1 hour if needed. limit 2 doses in 24 hours. tiZANidine (ZANAFLEX) 4 mg tablet Take 1 tablet by mouth every 8 hours as needed (muscle spasm low back). (Patient not taking: Reported on 04/17/2024) I have interviewed and examined the patient. I have reviewed the medical record and/or the pre-anesthesia evaluation, pertinent labs, and test results. This contains updated information obtained within 48 hours of Surgery/Procedure. SIGNATURE: Sony Hunt MD PATIENT NAME: Marian Barber DATE: May 21, 2024 TIME: 1:19 PM CSN: [id number] Normal [facility] BRIEF OP NOTon 05-21-2024 BRIEF OP NOT HNO ID: [id number] Author: RODERICK HARRIS MD Service: Colorectal Author Type: Resident Type: Brief Op Note Filed: 05/21/2024 14:20 Note Text: COLORECTAL SURGERY BRIEF OP NOTE LOG ID: [id number] Surgery/Procedure Date: 05/21/2024 Incision/Procedure Start Time: 2:01 PM Incision Close/Procedure End Time: 2:18 PM Surgeon(s) and Sliver Lap Machine Tender(s): Surgeons and Role: * Cris Sandhu MD - Primary * Roderick Harris MD - Resident - Assisting No Additional Staff Procedure(s): Procedure(s): EXAM UNDER ANESTHESIA RECTAL SPHINCTEROTOMY ANAL Anesthesia: Choice - Anesthesia Consult Findings: Lateral internal sphincterotomy performed Posterior midline anal fissure Please see operative report for full details Drains: None IV Fluids: Per anesthesia report Estimated Blood Loss: 5 cc Estimated Urine Output: Per anesthesia report Specimens: * No specimens in log * Wound Classification: NA Complications: None Pre-Op/Pre-Procedure Diagnosis: Pre-Op Diagnosis Codes: * Anal fissure [K60.2] Post-Op/Post-Procedure Diagnosis: Same as pre-op SIGNATURE: Roderick Harris MD PATIENT NAME: Marian Barber DATE: May 21, 2024 TIME: 2:20 PM PAGER/CONTACT #: [phone] Normal [facility] HISTORY PHYSICALon HISTORY PHYSICAL HNO ID: [id number] Author: RODERICK HARRIS MD Service: Colorectal Author Type: Resident Type: H&P Filed: 05/21/2024 13:33 Note Text: Attestation signed by Cris Sandhu MD at 05/21/2024 2:19 PM COLON AND RECTAL SURGERY ATTENDING Cris Sandhu MD May 21, 2024 2:19 PM HISTORY AND PHYSICAL EXAMINATION SERVICE DATE: 05/21/2024 SERVICE TIME: 1:05 PM PRIMARY CARE PHYSICIAN: Saroj Michel DO Subjective CHIEF COMPLAINT: Anal Fissure HPI: This is a 38 year old male who presents for rectal examination under anesthesia, possible sphincterotomy. Patient continues to report pain especially after bowel movements. He reports bowel movements to be soft. FUNCTIONAL STATUS: Independent PAST MEDICAL HISTORY Diagnosis Date ADD (attention deficit disorder) diagnosed as a child GERD (gastroesophageal reflux disease) Hypercholesteremia Knee pain, bilateral Traumatic brain injury (HCC) 2011 [facility] IED; Residual headache, hearing loss, vision dominguez PAST SURGICAL HISTORY Procedure Laterality Date PAST SURGICAL HISTORY OF botox for fissure VASECTOMY UNI/BI SPX W/POSTOP SEMEN EXAMS FAMILY HISTORY Problem Relation Age of Onset Heart Maternal Grandmother [place], CHF other (lupus) Maternal Grandmother Diabetes Maternal Grandfather Alzheimer's Disease Paternal Grandfather dementia Heart Paternal Grandfather Kidney Disease Paternal Grandfather other (healthy) Daughter other (healthy) Son gerd Colon Cancer No Family History Rectal Cancer No Family History Social History Tobacco Use Smoking status: Never Smokeless tobacco: Current Types: Chew Tobacco comments: chews tobacco Substance Use Topics Alcohol use: Yes Comment: rare lisdexamfetamine (VYVANSE) 70 mg capsule, Take 1 capsule by mouth once daily for 30 days. Patient should start on May 11, 2024., Disp: 30 capsule, Rfl: 0, 05/20/2024 RABEprazole (ACIPHEX) 20 mg tablet, Take 1 tablet by mouth once daily., Disp: 90 tablet, Rfl: 1, 05/20/2024 dextroamphetamine-amphe tamine (ADDERALL) 20 mg tablet, Take 1 tablet by mouth two times a day for 30 days. In the afternoon as needed for focus/concentration Patient should start on May 11, 2024., Disp: 60 tablet, Rfl: 0, 05/20/2024 budesonide, enteric coated (ENTOCORT EC) 3 mg 24 hr capsule, once daily., Disp: , Rfl: , 05/20/2024 [START ON 07/08/2024] lisdexamfetamine (VYVANSE) 70 mg capsule, Take 1 capsule by mouth once daily for 30 days. Patient should start on July 08, 2024., Disp: 30 capsule, Rfl: 0, Unknown [START ON 06/09/2024] lisdexamfetamine (VYVANSE) 70 mg capsule, Take 1 capsule by mouth once daily for 30 days. Patient should start on June 09, 2024., Disp: 30 capsule, Rfl: 0, Unknown [START ON 07/08/2024] dextroamphetamine-amphe tamine (ADDERALL) 20 mg tablet, Take 1 tablet by mouth two times a day for 30 days. In the afternoon as needed for focus/concentration Patient should start on July 08, 2024., Disp: 60 tablet, Rfl: 0, Unknown [START ON 06/09/2024] dextroamphetamine-amphe tamine (ADDERALL) 20 mg tablet, Take 1 tablet by mouth two times a day for 30 days. In the afternoon as needed for focus/concentration Patient should start on June 09, 2024., Disp: 60 tablet, Rfl: 0, Unknown SUMAtriptan (IMITREX) 100 mg tablet, Take 1 tablet (100 mg) by mouth as needed. take at onset of migraine, May repeat in 1 hour if needed. limit 2 doses in 24 hours., Disp: 12 tablet, Rfl: 5, Unknown at months ago tiZANidine (ZANAFLEX) 4 mg tablet, Take 1 tablet by mouth every 8 hours as needed (muscle spasm low back). (Patient not taking: Reported on 04/17/2024), Disp: 30 tablet, Rfl: 1, Unknown ALLERGIES Allergen Reactions Amoxicillin Hives Septra Ds [Sulfamet* Hives COMPLETE REVIEW OF SYSTEMS: GENERAL: No weight loss, malaise or fevers RESPIRATORY: Negative for cough, hemoptysis, wheezing, COPD, dyspnea or shortness of breath CARDIOVASCULAR: Negative for chest pain, leg swelling, hypertension, CHF or palpitations GI: See HPI Objective PHYSICAL EXAM: Physical Exam Performed: GENERAL: Alert, no distress, cooperative LUNGS: Lungs clear to auscultation, Good diaphragmatic excursion CARDIAC: Normal S1 and S2; no rubs, murmurs, or gallops There were no vitals taken for this visit. DATA: Diagnostic tests reviewed for today's visit: Most recent labs Assessment/Plan Active Hospital Problems No active problems on problem list Exogenous Class 1 Obesity Assessment AND Plan Medication and Non-Pharmacologic VTE Prophylaxis/Anticoagula nts VTE Prophylaxis: VTE prophylaxis appropriate SIGNATURE: Roderick Harris MD PATIENT NAME: Marian Barber DATE: May 21, 2024 TIME: 1:04 PM Normal [facility] OPERATIVE NOon 05-21-2024 OPERATIVE NO HNO ID: [id number] Author: CRIS SANDHU MD Service: Colorectal Author Type: Physician Type: Operative Report Filed: 05/21/2024 16:42 Note Text: OPERATIVE/PROCEDURE REPORT LOG ID: [id number] SURGERY/PROCEDURE DATE: 05/21/2024 INCISION/PROCEDURE START TIME: 2:01 PM INCISION CLOSE/PROCEDURE END TIME: 2:18 PM SURGEON(S)/PROCEDURALIS T(S) AND NURSE HEAD(S): Surgeons and Role: * Cris Sandhu MD - Primary * Roderick Harris MD - Resident - Assisting No Additional Staff SURGERY/PROCEDURE(S): ANAL EXAMINATION UNDER ANESTHESIA LATERAL SPHINCTEROTOMY PRE-OP/PRE-PROCEDURE DIAGNOSIS: 38 y.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 ANESTHESIA: Choice - Anesthesia Consult SURGERY/PROCEDURE DETAILS: The patient was taken to the operating room, we performed a huddle, in which we identified the patient by name, date of and confirmed the procedure to be performed in the presence of the surgical and anesthesia staff and OR nursing. All were in agreement. The patient was then placed on the operating table in a supine position. General anesthesia was induced. Patient was then placed in lithotomy position, both arms were left out. The perianal area was prepped with Betadine solution, and draped with sterile drapes. At this point, a surgical time out was performed in the presence of anesthesia, surgery, and nursing staff indicating the patient by identifiers, procedure to be performed, dispensation of antibiotics, and DVT prophylaxis in the form of SCDs, which were turned on, as well as the patient's position. All were in agreement. We started our surgery by examining the perianal area and confirmed the finding of posterior fissure. 2 inversion stitches were placed around the anal orifice on the left using Vycril 0 stitches. The intersphincteric groove was identified and a 2 cm incision using Bovie electrocautery was performed. The internal anal sphincter was lifted using a right angle device approximately in the same length as the fissure appeared. The fibers were cut and hemostasis achieved using a Bovie. The mucosa was left open. Then nerve block to the perianal skin in both pudendal nerves was performed using 30 mL of quarter percent Marcaine and 20 mL of Exparel. This point hemostasis was confirmed and surgery was concluded. Dressing was applied with an ABDs and mesh panty. A second sponge and instrument count was correct. The patient was awakened and taken to the recovery room. I was present for the entire procedure from positioning until placement of dressings. The patient was transferred to the PACU in stable condition. POST-OP/POST-PROCEDURE DIAGNOSIS: Same as Preop ESTIMATED BLOOD LOSS: 20 mls SPECIMENS: None IMPLANTABLE DEVICES: NONE DRAINS: None COMPLICATIONS: None CLOSURE TECHNIQUE: Non-primary PARTICIPATION IN SURGERY/PROCEDURE: I/primary surgeon/proceduralist performed the procedure with assistance. SIGNATURE: Cris Sandhu MD PATIENT NAME: Marian Barber DATE: May 21, 2024 TIME: 4:37 PM Normal [facility] CNOVon 05-08-2024 CNOV Office Visit (FAMPWS ) MARIAN BARBER ([id number]) 1985 M Date Time Provider Department 05/08/24 10:00 AM [facility] During your visit today, we recorded the following information about you: Temperature Pulse Respiration Blood pressure 96.7 degrees 72/minute 16/minute 128/78 Weight 91.6 kg Saroj Michel DO 05/09/2024 11:07 AM Signed CC: Marian Barber is a 38 year old male who presents to the office for follow up HPI: ADD, long standing, has been taking the vyvanse 70 mg and then later the Adderall 20 mg short acting. He feels that the dosing may need to be increased. 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 Recently diagnosed with rectal fissure.Will be seeing specialist and having procedure by Colorectal surgeon at [facility] in 2 weeks to fix this. No topical medications or rectal Botox which was done on 03/27 at [facility] by Dr. 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 Aguayo and started on Budesonide orally and overall is feeling better. He has been able to quit oral use of tobacco over the last 3 months. He is very excited about this after all his effort and hard work to do so PAST MEDICAL HISTORY Diagnosis Date ADD (attention deficit disorder) diagnosed as a child GERD (gastroesophageal reflux disease) Hypercholesteremia Knee pain, bilateral Traumatic brain injury (HCC) 2011 [facility] IED; Residual headache, hearing loss, vision dominguez PAST SURGICAL HISTORY Procedure Laterality Date PAST SURGICAL HISTORY OF botox for fissure VASECTOMY UNI/BI SPX W/POSTOP SEMEN EXAMS Current Outpatient Medications Medication Sig [START ON 07/08/2024] lisdexamfetamine (VYVANSE) 70 mg capsule Take 1 capsule by mouth once daily for 30 days. Patient should start on July 08, 2024. [START ON 06/09/2024] lisdexamfetamine (VYVANSE) 70 mg capsule Take 1 capsule by mouth once daily for 30 days. Patient should start on June 09, 2024. [START ON 05/11/2024] lisdexamfetamine (VYVANSE) 70 mg capsule Take 1 capsule by mouth once daily for 30 days. Patient should start on May 11, 2024. RABEprazole (ACIPHEX) 20 mg tablet Take 1 tablet by mouth once daily. [START ON 07/08/2024] dextroamphetamine-amphe tamine (ADDERALL) 20 mg tablet Take 1 tablet by mouth two times a day for 30 days. In the afternoon as needed for focus/concentration Patient should start on July 08, 2024. [START ON 06/09/2024] dextroamphetamine-amphe tamine (ADDERALL) 20 mg tablet Take 1 tablet by mouth two times a day for 30 days. In the afternoon as needed for focus/concentration Patient should start on June 09, 2024. [START ON 05/11/2024] dextroamphetamine-amphe tamine (ADDERALL) 20 mg tablet Take 1 tablet by mouth two times a day for 30 days. In the afternoon as needed for focus/concentration Patient should start on May 11, 2024. budesonide, enteric coated (ENTOCORT EC) 3 mg 24 hr capsule once daily. NIFEdipine rectal ointment 0.2% (CPD) by RECTAL route two times a day. SUMAtriptan (IMITREX) 100 mg tablet Take 1 tablet (100 mg) by mouth as needed. take at onset of migraine, May repeat in 1 hour if needed. limit 2 doses in 24 hours. tiZANidine (ZANAFLEX) 4 mg tablet Take 1 tablet by mouth every 8 hours as needed (muscle spasm low back). (Patient not taking: Reported on 04/17/2024) No current facility-administered medications for this visit. ALLERGIES Allergen Reactions Amoxicillin Hives Septra Ds [Sulfamet* Hives Social History Tobacco Use Smoking status: Never Smokeless tobacco: Current Types: Chew Tobacco comments: chews tobacco Substance Use Topics Alcohol use: Yes Comment: rare ROS: See HPI PE: BP 128/78 Pulse 72 Temp (Src) 96.7 (Left Tympanic) Resp 16 Wt 202 lb (91.6kg) Gen: AANDOX3, NAD, non-toxic appearing HEENT: PERRLA, EOMs intact b/l, nares without drainage, pharynx without erythema, exudate, lesions, or drainage. Uvula midline. Neck: No LAD, no thyromegaly, no meningismus. CV: RRR, no murmur Lungs: CTA b/l, no wheezing Skin: No rashes, lesions, or wounds on exposed skin. No edema, normal pulses PDMP website checked and validated. All prescriptions have been APPROPRIATELY filled. No suspicious activity was identified. 05/09/2024 by Saroj Michel DO ASSESSMENT/PLAN: 1. Attention deficit disorder (ADD) in adult - ICD9: 314.00, ICD10: F98.8 (primary diagnosis) Increase dose of Adderall, continue AM dosing of Vyvanse F/u in 3-6 months in office No SE with medication, tolerating rx well - LISDEXAMFETAMINE 70 MG CAPSULE - LISDEXAMFETAMINE 70 MG CAPSULE - LISDEXAMFETAMINE 70 MG CAPSULE - DEXTROAMPHETAMINE-AMPHE TAMINE 20 MG TABLET - DEXTROAM (more content not included)... Normal [facility] CNCOon 05-06-2024 CNCO Letter Text Normal [facility] CNOVon 04-17-2024 CNOV Office Visit (CORSMN ) MARIAN BARBER ([id number]) 1985 M Date Time Provider Department 04/17/24 8:00 AM CRIS SANDHU During your visit today, we recorded the following information about you: Temperature Pulse Blood pressure Weight 97.3 degrees 91/minute 142/84 89.4 kg Height 1.676 m Cris Sandhu MD 04/17/2024 9:09 AM Signed COLORECTAL SURGERY New Patient Visit April 16, 2024 Chief Complaint: Blood in stool History of Present Illness: Marian Barber is a 38-year-old male presenting with anal pain and discomfort. He initially sought treatment at [facility] for similar symptoms and was prescribed lidocaine and hydrocortisone ointments. When these treatments did not resolve the issue, he received a Botox injection three weeks ago, which initially provided relief. However, he was later admitted for acute massive lower gastrointestinal bleeding . During this hospitalization, he underwent a CT angiography, which raised suspicion for a rectosigmoid mass, and subsequently had a colonoscopy and EGD. Those ruled out malignancy but revealed acute diverticular bleeding. He was discharged a week ago, but since then, his pain has worsened, resembling the symptoms he experienced prior to the Botox injection. He is currently taking 20-30 grams of fiber supplements, and his bowel movements are soft and formed 1-2 times daily.. 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 He does not use blood thinners. No active smoking, alcohol or illicit drug use. There is no significant family history of illness. He has not had any abdominal surgeries in the past. No previous abdominal or anal surgeries ( beside Botox). Recent admission in [facility] 04/19: The patient is a 38-year-old male who presented overnight to the emergency department with blood per rectum. He has been having episodes of blood per rectum since September. He underwent colonoscopy in November without an obvious cause. He underwent a flexible sigmoidoscopy about 2 weeks ago along with Botox injection for anal pain. Patient was admitted and wanted a second opinion and so a general surgery consult was obtained. I suspect that his bleeding initially was anal rectal or sigmoid in nature and so I offered to perform a flexible sigmoidoscopy along with a rectal exam under anesthesia and he wished to proceed. He was brought to the operating room today following informed consent. Timeout was performed. He was placed supine on the operative table. MAC anesthesia wasinduced. Once adequately anesthetized his legs were placed in a modified lithotomy position. Rectal exam was performed. He did have some moderate external hemorrhoids and a small posterior fissure but these did not seem to be causing any bleeding. Once digital rectal exam was performed a copious amount of dark red blood and clot drained out. At this point we proceeded with the insertion of the colonoscope. Upon entry there was a copious amount of blood inthe rectum along with clot. I very cautiously advance the scope irrigating and suctioning as we advance. I was able to advance the scope to about 80 to 90 cm at this point I encountered a copious amount of clot and stool which really precluded any further advancement of the scope. At this point I slowly withdrewthe scope irrigating and sucking as much clot out as possible. No readily apparent source was identified. Based on the appearance I would suspect either diverticular source or even an upper GI source as a another possibility. The scope was eventually withdrawn and the patient was awakened anesthesia. Would recommend continued close observation and fluid resuscitation. If he remains clinically stable he would probably benefit from bowel prep and another attempt at colonoscopy and possibly even EGD as well. It is important to note that no obvious acute source of bleeding was noted ho wever most of the blood was old appearing with clot. 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 Biopsied. - Normal stomach. Biopsied. - Normal duodenal bulb. Colonoscopy 04/13/24: Impression: - Diverticulosis in the sigmoid colon. - External and internal hemorrhoids. - One 3 mm polyp in the rectum, removed with a cold biopsy forceps. Resected and retrieved. - The examination was otherwise normal on direct and retroflexion views. Recommendation: - [facility] care.- High fiber diet.- Await pathology results.- Repeat colonoscopy in 3 - 5 y (more content not included)... Normal [facility] HISTORY PHYSICALon HISTORY PHYSICAL HNO ID: [id number] Author: CRIS SANDHU MD Service: ? Author Type: Physician Type: H&P Filed: 04/17/2024 09:09 Note Text: COLORECTAL SURGERY New Patient Visit April 16, 2024 Chief Complaint: Blood in stool History of Present Illness: Marian Barber is a 38-year-old male presenting with anal pain and discomfort. He initially sought treatment at [facility] for similar symptoms and was prescribed lidocaine and hydrocortisone ointments. When these treatments did not resolve the issue, he received a Botox injection three weeks ago, which initially provided relief. However, he was later admitted for acute massive lower gastrointestinal bleeding . During this hospitalization, he underwent a CT angiography, which raised suspicion for a rectosigmoid mass, and subsequently had a colonoscopy and EGD. Those ruled out malignancy but revealed acute diverticular bleeding. He was discharged a week ago, but since then, his pain has worsened, resembling the symptoms he experienced prior to the Botox injection. He is currently taking 20-30 grams of fiber supplements, and his bowel movements are soft and formed 1-2 times daily.. 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 He does not use blood thinners. No active smoking, alcohol or illicit drug use. There is no significant family history of illness. He has not had any abdominal surgeries in the past. No previous abdominal or anal surgeries ( beside Botox). Recent admission in [facility] 04/19: The patient is a 38-year-old male who presented overnight to the emergency department with blood per rectum. He has been having episodes of blood per rectum since September. He underwent colonoscopy in November without an obvious cause. He underwent a flexible sigmoidoscopy about 2 weeks ago along with Botox injection for anal pain. Patient was admitted and wanted a second opinion and so a general surgery consult was obtained. I suspect that his bleeding initially was anal rectal or sigmoid in nature and so I offered to perform a flexible sigmoidoscopy along with a rectal exam under anesthesia and he wished to proceed. He was brought to the operating room today following informed consent. Timeout was performed. He was placed supine on the operative table. MAC anesthesia wasinduced. Once adequately anesthetized his legs were placed in a modified lithotomy position. Rectal exam was performed. He did have some moderate external hemorrhoids and a small posterior fissure but these did not seem to be causing any bleeding. Once digital rectal exam was performed a copious amount of dark red blood and clot drained out. At this point we proceeded with the insertion of the colonoscope. Upon entry there was a copious amount of blood inthe rectum along with clot. I very cautiously advance the scope irrigating and suctioning as we advance. I was able to advance the scope to about 80 to 90 cm at this point I encountered a copious amount of clot and stool which really precluded any further advancement of the scope. At this point I slowly withdrewthe scope irrigating and sucking as much clot out as possible. No readily apparent source was identified. Based on the appearance I would suspect either diverticular source or even an upper GI source as a another possibility. The scope was eventually withdrawn and the patient was awakened anesthesia. Would recommend continued close observation and fluid resuscitation. If he remains clinically stable he would probably benefit from bowel prep and another attempt at colonoscopy and possibly even EGD as well. It is important to note that no obvious acute source of bleeding was noted ho wever most of the blood was old appearing with clot. 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 Biopsied. - Normal stomach. Biopsied. - Normal duodenal bulb. Colonoscopy 04/13/24: Impression: - Diverticulosis in the sigmoid colon. - External and internal hemorrhoids. - One 3 mm polyp in the rectum, removed with a cold biopsy forceps. Resected and retrieved. - The examination was otherwise normal on direct and retroflexion views. Recommendation: - Return patient to [facility] for ongoing care.- High fiber diet.- Await pathology results.- Repeat colonoscopy in 3 - 5 years for surveillance based on pathology results. - Return to my office PRN. CTA abdomen and pelvis: Lung bases: Normal. Liver: Normal. No bile ductal dilatation. Gallbladder: Normal. Spleen: Normal. Adrenal gland: Normal. Kidneys: Normal. No hydronephrosis or stone formation. Pancreas:Normal (more content not included)... Normal [facility] Basic Metabolic Profile (BMP )on 04-13-2024 BUN/CRE 7.1 RATIO Low 10-20 [facility] Comment on above: Performed By: #### L 100.0600 #### [facility] [address] [place], [address] CA,Total 9.1 mg/dL Normal 8.5-10.1 [facility] Comment on above: Performed By: #### L 100.0600 #### [facility] [address] [place], [address] Chloride [Moles/Vol] 106 mmol/L Normal 98-107 [facility] Comment on above: Performed By: #### L 100.0600 #### [facility] [address] [place], [address] CO2 [Moles/Vol] 27.0 mmol/L Normal 21.0-32.0 [facility] Comment on above: Performed By: #### L 100.0600 #### [facility] [address] [place], [address] Creatinine [Mass/Vol] 1.26 mg/dL Normal 0.70-1.30 [facility] Comment on above: Result Comment: The validity of the calculated GFR GFRAA in patients over 70 years has not been determined. Clinical correlation is essential. Performed By: #### L 100.0600 #### [facility] [address] [place], [address] ECRCL 84.61 ml/min Normal [facility] Comment on above: Performed By: #### L 100.0600 #### [facility] [address] [place], [address] EST GFR - AA 83 mL/min Normal >60 [facility] Comment on above: Result Comment: Afri can [place] [employer] GFR Calc Performed By: #### L 100.0600 #### [facility] [address] [place], [address] GAP 7 Normal 5-15 [facility] Comment on above: Performed By: #### L 100.0600 #### [facility] [address] [place], [address] GFR/1.73 sq M.predicted among non-blacks MDRD (S/P/Bld) [Vol rate/Area] 69 mL/min/{1.73_m2} Normal >60 [facility] Comment on above: Result Comment: Non- GFR Calc Performed By: #### L 100.0600 #### [facility] [address] [place], [address] Glucose [Mass/Vol] 102 mg/dL Normal 74-106 [facility] Comment on above: Result Comment: Fast ing Glucose result from 100 to 125 mg/dL suggests IMPAIRED HOMEOSTASIS per A.D.A. criteria. Performed By: #### L 100.0600 #### [facility] [address] [place], [address] Potassium [Moles/Vol] 3.8 mmol/L Normal 3.5-5.1 [facility] Comment on above: Performed By: #### L 100.0600 #### [facility] [address] [place], [address] Sodium [Moles/Vol] 140 mmol/L Normal 136-145 [facility] Comment on above: Performed By: #### L 100.0600 #### [facility] [address] [place], [address] Urea nitrogen [Mass/Vol] 9 mg/dL Normal 7-18 [facility] Comment on above: Performed By: #### L 100.0600 #### [facility] [address] [place], [address] CBC W/Diff, Automatedon 11 Absolute Lymph 2.15 X10 3/uL Normal 0.83-4.51 [facility] Comment on above: Performed By: #### L 100.0500, L500.2500 #### [facility] [address] [place], [address] Absolute Neut 3.5 X10 3/uL Normal 2.0-7.7 [facility] Comment on above: Performed By: #### L 100.0500, L500.2500 #### [facility] [address] [place], [address] Basophils/100 WBC (Bld) 0.9 % Normal 0-1 [facility] Comment on above: Performed By: #### L 100.0500, L500.2500 #### [facility] [address] [place], [address] Eosinophils/100 WBC (Bld) 2.6 % Normal 0-5 [facility] Comment on above: Performed By: #### L 100.0500, L500.2500 #### [facility] [address] [place], [address] Erythrocyte distribution width (RBC) [Ratio] 13.3 % Normal 11.6-14.6 [facility] Comment on above: Performed By: #### L 100.0500, L500.2500 #### [facility] [address] [place], [address] Hematocrit (Bld) [Volume fraction] 38.5 % Low 40-54 [facility] Comment on above: Performed By: #### L 100.0500, L500.2500 #### [facility] [address] [place], [address] Hemoglobin (Bld) [Mass/Vol] 12.7 g/dL Low 13.0-16.5 [facility] Comment on above: Performed By: #### L 100.0500, L500.2500 #### [facility] [address] [place], [address] IG% 0.500 Normal 0.0-0.9 [facility] Comment on above: Result Comment: IG% - Immature Granulocytes (promyelocytes, myelocytes and metamyelocytes) > 1% indicates that a LEFT SHIFT is Present. Performed By: #### L 100.0500, L500.2500 #### [facility] [address] [place], [address] Lymphocytes/100 WBC (Bld) 33.5 % Normal 19-41 [facility] Comment on above: Performed By: #### L 100.0500, L500.2500 #### [facility] [address] [place], [address] MCH (RBC) [Entitic mass] 28.2 pg Normal 27.0-32.0 [facility] Comment on above: Performed By: #### L 100.0500, L500.2500 #### [facility] [address] [place], [address] MCHC (RBC) [Mass/Vol] 33.0 g/dL Normal 32-36 [facility] Comment on above: Performed By: #### L 100.0500, L500.2500 #### [facility] [address] [place], [address] MCV (RBC) [Entitic vol] 85.6 fL Normal 80-94 [facility] Comment on above: Performed By: #### L 100.0500, L500.2500 #### [facility] [address] [place], [address] Monocytes/100 WBC (Bld) 8.7 % Normal 0-10 [facility] Comment on above: Performed By: #### L 100.0500, L500.2500 #### [place] [facility] [address] [place], [address] Neutrophils/100 WBC (Bld) 53.8 % Normal 47-70 [facility] Comment on above: Performed By: #### L 100.0500, L500.2500 #### [facility] [address] [place], [address] Nucleated RBC (Bld) [#/Vol] 0 10*3/uL Normal 0-5 [facility] Comment on above: Performed By: #### L 100.0500, L500.2500 #### [facility] [address] [place], [address] Platelet mean volume (Bld) [Entitic vol] 9.9 fL Normal 6.2-12.0 [facility] Comment on above: Performed By: #### L 100.0500, L500.2500 #### [facility] [address] [place], [address] Platelets (Bld) [#/Vol] 314 10*3/uL Normal 150-450 [facility] Comment on above: Performed By: #### L 100.0500, L500.2500 #### [facility] [address] [place], [address] RBC (Bld) [#/Vol] 4.50 10*6/uL Low 4.6-6.2 [facility] Comment on above: Performed By: #### L 100.0500, L500.2500 #### [facility] [address] [place], [address] RDW SD 41.2 fl Normal 35.1-43.9 [facility] Comment on above: Performed By: #### L 100.0500, L500.2500 #### [facility] [address] [place], [address] WBC (Bld) [#/Vol] 6.4 10*3/uL Normal 4.4-11.0 [facility] Comment on above: Performed By: #### L 100.0500, L500.2500 #### [facility] [address] [place], [address] Colonoscopy Reporton 024 Colonoscopy Report Medical Records Department [address] [place] [address] Colonoscopy Report MR#: [id number] Acct: [id number] Name: MARIAN BARBER Rep #: [id number] : 1985 38 From: Blu Wagner MD PCP: Dr. Saroj Michel, Status:ADM IN Patient Name: Marian Barber Procedure Date: 04/13/2024 10:03 AM Date of : 1985 Age: 38 Procedure: Colonoscopy Indications: Hematochezia Providers: Blu Wagner MD Medicines: Monitored Anesthesia Care Patient Profile: Refer to note in patient chart for documentation of history and physical. Patient has symptoms. Refer to note in patient chart for documentation of history and physical. Last Colonoscopy: within the past 6 months. Complications: No immediate complications. Estimated blood loss: Minimal. Procedure: Pre-Anesthesia Assessment: - Prior to the procedure, a History and Physical was performed, and patient medications and allergies were reviewed. The patient's tolerance of previous anesthesia was also reviewed. The risks and benefits of the procedure and the sedation options and risks were discussed with the patient. All questions were answered, and informed consent was obtained. Prior Anticoagulants: The patient has taken no anticoagulant or antiplatelet agents. ASA Grade Assessment: II - A patient with mild systemic disease. After reviewing the risks and benefits, the patient was deemed in satisfactory condition to undergo the procedure. - Prior to the procedure, a History and Physical was performed, and patient medications and allergies were reviewed. The patient's tolerance of previous anesthesia was also reviewed. The risks and benefits of the procedure and the sedation options and risks were discussed with the patient. All questions were answered, and informed consent was obtained. Prior Anticoagulants: The patient has taken no anticoagulant or antiplatelet agents. ASA Grade Assessment: II - A patient with mild systemic disease. After reviewing the risks and benefits, the patient was deemed in satisfactory condition to undergo the procedure. After I obtained informed consent, the scope was passed under direct vision. Throughout the procedure, the patient's blood pressure, pulse, and oxygen saturations were monitored continuously. The pediatric colonoscope was introduced through the anus and advanced to the cecum, identified by appendiceal orifice and ileocecal valve. The ileocecal valve, appendiceal orifice, and rectum were photographed. The entire colon was well visualized. The colonoscopy was performed without difficulty. The patient tolerated the procedure well. The quality of the bowel preparation was adequate. Moderate Sedation: See the other procedure note for documentation of moderate sedation with intraservice time. Scope In: 10:11:36 AM Scope Out: 10:35:11 AM Total Procedure Duration Time 0 hours 23 minutes 35 seconds Findings: The perianal and digital rectal examinations were normal. Many small and large-mouthed diverticula were found in the sigmoid colon. External and internal hemorrhoids were found during retroflexion. The hemorrhoids were moderate. A 3 mm polyp was found in the rectum. The polyp was semi-sessile. The polyp was removed with a cold biopsy forceps. Resection and retrieval were complete. Verification of patient identification for the specimen was done by the nurse using the patient's name, date and medical record number. The exam was otherwise without abnormality on direct and retroflexion views. Impression: - Diverticulosis in the sigmoid colon. - External and internal hemorrhoids. - One 3 mm polyp in the rectum, removed with a cold biopsy forceps. Resected and retrieved. - The examination was otherwise normal on direct and retroflexion views. Recommendation: - [facility] care. - High fiber diet. - Await pathology results. - Repeat colonoscopy in 3 - 5 years for surveillance based on pathology results. - Return to my office PRN. - Continue present medications. Procedure Code(s): --- Professional --- 93346, Colonoscopy, flexible; with biopsy, single or multiple Diagnosis Code(s): --- Professional --- K64.8, Other hemorrhoids D12.8, Benign neoplasm of rectum K92.1, Melena (includes Hematochezia) K57.30, Diverticulosis of large intestine without perforation or abscess without bleeding CPT copyright 2021 [employer]. All rights reserved. The codes documented in this report are preliminary and upon station installer and repairer review may be revised to meet current compliance requirements. Blu Wagner MD 04/13/2024 10:53:34 AM This report has been signed electronically. Number of Addenda: 0 Note Initiated On: 04/13/2024 10:03 AM 04/13/24 1053 Date (more content not included)... Normal [facility] EGD Reporton 04-13-2024 EGD Report Medical Records Department [address] [place] [address] EGD Report MR#: [id number] Acct: [id number] Name: MARIAN BARBER Rep #: [id number] : 1985 38 From: Blu Wagner MD PCP: Dr. Saroj Michel, Status:ADM IN Patient Name: Marian Barber Procedure Date: 04/13/2024 9:35 AM Date of : 1985 Age: 38 Procedure: Upper GI endoscopy Indications: Recent gastrointestinal bleeding Providers: Blu Wagner MD Medicines: Monitored Anesthesia Care Patient Profile: Refer to note in patient chart for documentation of history and physical. Patient has symptoms. Complications: No immediate complications. Estimated blood loss: Minimal. Procedure: Pre-Anesthesia Assessment: - Prior to the procedure, a History and Physical was performed, and patient medications and allergies were reviewed. The patient's tolerance of previous anesthesia was also reviewed. The risks and benefits of the procedure and the sedation options and risks were discussed with the patient. All questions were answered, and informed consent was obtained. Prior Anticoagulants: The patient has taken no anticoagulant or antiplatelet agents. ASA Grade Assessment: II - A patient with mild systemic disease. After reviewing the risks and benefits, the patient was deemed in satisfactory condition to undergo the procedure. After obtaining informed consent, the endoscope was passed under direct vision. Throughout the procedure, the patient's blood pressure, pulse, and oxygen saturations were monitored continuously. The Endoscope was introduced through the mouth, and advanced to the duodenal bulb. The upper GI endoscopy was accomplished without difficulty. The patient tolerated the procedure well. Moderate Sedation: See the other procedure note for documentation of moderate sedation with intraservice time. Scope In: 9:56:18 AM Scope Out: 10:03:18 AM Total Procedure Duration Time 0 hours 7 minutes 0 seconds Findings: The examined esophagus was normal. Mucosa was biopsied with a cold forceps for histology randomly at the gastroesophageal junction. Verification of patient identification for the specimen was done by the nurse using the patient's name, date and medical record number. Estimated blood loss was minimal. The entire examined stomach was normal. Biopsies were taken with a cold forceps for Helicobacter pylori testing. Verification of patient identification for the specimen was done by the nurse using the patient's name, date and medical record number. Estimated blood loss was minimal. The duodenal bulb was normal. Impression: - Normal esophagus. Biopsied. - Normal stomach. Biopsied. - Normal duodenal bulb. Recommendation: - [facility] to [facility] for [facility] care. - High fiber diet. - Continue present medications. Procedure Code(s): --- Professional --- 26536, Esophagogastroduodenosc opy, flexible, transoral; with biopsy, single or multiple Diagnosis Code(s): --- Professional --- K92.2, Gastrointestinal hemorrhage, unspecified CPT copyright 2021 [employer]. All rights reserved. The codes documented in this report are preliminary and upon station installer and repairer review may be revised to meet current compliance requirements. Blu Wagner MD 04/13/2024 10:47:19 AM This report has been signed electronically. Number of Addenda: 0 Note Initiated On: 04/13/2024 9:35 AM 04/13/24 1047 Date Blu Wagner MD Cosigner Signature: Date (if indicated) CC: Dr. Saroj Michel DO; Dr. Blu Wagner MD Date Dictated: 04/13/24 0935 Date Transcribed: Vocational Nursing Instructor: MALGORZATA Signed Normal [facility] H Pylori (initial)on 024 H Pylori (initial) --- Patient Age/Sex Location Account Attending Physician MARIAN BARBER 38/[facility] [id number] Dr. Edilson Islas, DO Specimen: [id number] Received: 04/13/24 Status: DRU Clark Num: [id number] Spec Type: IMMUNO Subm Dr: Dr. Blu Wagner MD PHYSICIAN INSTITUTION [place] [address] SPECIMEN INFORMATION: Tissue Source: A- Antrum biopsy Clinical Info: Acute lower gastrointestinal bleeding Specimen Number: [id number] CPT code: 01514 METHODOLOGY: Deparaffinized sections of prefer/formalin-fixed tissue or PAP/DQ stained slides are incubated with monoclonal/polyclonal antibodies/oligonucleot concepción probes. Localization is made via biotin free immunoperoxidase method. Appropriate controls are performed and reacted as expected. Results on target cell population are indicated in the following table: RESULTS: ANTIBODY / CLONE RESULT Block A H Pylori (polyclonal) negative These tests were developed and their performance characteristics determined by [facility]. They may not have been cleared or approved by the U.S. Food and Drug Administration. The FDA has determined that such clearance or approval is not necessary. The above immunohistochemical/ivana Chivo markers are ordered and reviewed by the Pathologist. INTERPRETATION: A. Antrum, biopsy: Negative for Helicobacter pylori organisms. 04/14/2024 Signed (signature on file) Dr. Reinaldo Montero MD 04/14/24 1420 Normal [facility] Comment on above: Performed By: #### L 100.0500, L500.2500 #### [facility] [address] [place], [address] MR/POSTOP.Chio 04-13-2024 MR/POSTOP.[facility] Medical Records Department [address] [place] [address] Anesthesia Postop Eval I 04/13/24 1047 MR#: [id number] Acct: [id number] Name: MARIAN BARBER Rep #: [id number] : 1985 38 From: Edmar Roper MD PCP: Dr. Saroj Michel, DO Status:ADM IN Y Race: C Location: [place] [address] Anesthesia: Postop Eval I Current Vital Signs Temperature: 97.9 F Pulse Rate: 81 Blood Pressure: 94/72 Respiratory Rate: 16 Pulse Ox: 100 Oxygen Delivery Method: Room Air Assessment Airway patent: Yes Spontaneous unlabored respirations: Yes Mental status: Awake and Calm nausea: No Vomiting: No Anesthesia Complication: No Fluid Hydration Crystalloid volume administer (ml): 20 Total IV fluid infused: 20 Progress Note Anesthesia document: Postop Eval 1 completed: Yes 04/13/24 1048 Date Edmar Roper MD Cosigner Signature: Date CC: Signed Normal [facility] MR/[id number] 04-13-2024 MR/POSTOPAN2 Medical Records Department [address] [place] [address] Anesthesia Postop Eval II 04/13/24 1147 MR#: [id number] Acct: [id number] Name: MARIAN BARBER Rep #: [id number] : 1985 38 From: Edmar Roper MD PCP: Dr. Saroj Michel, DO Status:ADM IN Y Race: C Location: [place] [address] Anesthesia Postop Eval I Sum Postop Eval Completion status Anesthesia document: Postop Eval 1 completed: Yes Anesthesia Postop Eval I Summary Anesthesia Postop Eval I Summary: Anesthesia Postop Eval I: Assessment Summary Airway patent Yes 04/13/24 10:48 Spontaneous unlabored Yes 04/13/24 10:48 respirations Mental status Awake,Calm 04/13/24 10:48 nausea No 04/13/24 10:48 Vomiting No 04/13/24 10:48 Anesthesia Postop Eval I: Fluid Summary Crystalloid volume administer 20 04/13/24 10:48 (ml) Colloids volume administered ( ml) Blood Product volume administered (ml) Total IV fluid infused 04/13/24 10:48 Anesthesia Postop Eval I: Summary Notes Anesthesia Complication No 04/13/24 10:48 Anesthesia Complication Comment: Post-operative progress note Anesthesia: Postop Eval II Evaluation Mental status: Awake and Calm Pain Level: 0 nausea: No Vomiting: No Complications Anesthesia Complication: No 04/13/24 1148 Date Edmar Jaquezignpal Signature: Date CC: Signed Normal [facility] MR/POSTOPAN2 Medical Records Department [address] [place] [address] Anesthesia Postop Eval II 04/13/24 1024 MR#: [id number] Acct: [id number] Name: MARIAN BARBER Rep #: [id number] : 1985 38 From: Kalen Padron MD PCP: Dr. Saroj Michel, DO Status:ADM IN Y Race: C Location: [place] [address] Anesthesia Postop Eval I Sum Postop Eval Completion status Anesthesia document: Postop Eval 1 completed: Yes Anesthesia Postop Eval I Summary Anesthesia Postop Eval I Summary: Anesthesia Postop Eval I: Assessment Summary Airway patent Yes 04/10/24 12:58 ANIMAL TRAPPERSURESH Spontaneous unlabored Yes 04/10/24 12:58 ANIMAL TRAPPERSURESH respirations Mental status Awake,Calm 04/10/24 16:44 nausea No 04/10/24 16:44 Vomiting No 04/10/24 16:44 Anesthesia Postop Eval I: Fluid Summary Crystalloid volume administer 10 04/10/24 12:58 ANIMAL TRAPPERSURESH (ml) Colloids volume administered ( ml) Blood Product volume administered (ml) Total IV fluid infused 10 04/10/24 12:58 LAURA Anesthesia Postop Eval I: Summary Notes Anesthesia Complication No 04/10/24 16:44 Anesthesia Complication Comment: Post-operative progress note Anesthesia: Postop Eval II Evaluation Mental status: Awake Pain Level: 1 nausea: No Vomiting: No 04/13/24 1025 Date Kalen Phelan Signature: Date CC: Signed Normal [facility] Surgery Specimen Level Varinder 04-13-2024 Surgery Specimen Level IV Patient Age/Sex Location Account Attending Physician MARIAN BARBER 38/M [facility] [id number] Dr. Edilson Islas DO Specimen: [id number] Received: 04/13/24 Status: GARDENIAYvonne Clark Num: [id number] Spec Type: Gastric Bx Subm Dr: Dr. Blu Wagner MD HEADER OPERATION: Colonoscopy, polypectomy, EGD with biopsy PRE-OP DIAGNOSIS: Acute lower gastrointestinal bleeding TISSUE SUBMITTED: A- Antrum biopsy, B- Gastroesophageal junction biopsy, C- Rectal polyp MICROSCOPIC DIAGNOSIS A. Antrum, biopsy: Gastric mucosa, no pathologic diagnosis. See comment. B. Gastroesophageal junction, biopsy: Squamous mucosa, no pathologic diagnosis. No evidence of Carrington's esophagus. No evidence of dysplasia. C. Rectal polyp, biopsy: Ulcerated inflammatory polyp. 04/14/2024 COMMENT A. The results of immunohistochemistry for Helicobacter pylori will be reported separately ([id number]). MICROSCOPIC DESCRIPTION Slides are reviewed. GROSS DESCRIPTION A. Received in fixative is one container labeled with the patient's name and designated Antrum biopsy. The specimen consists of one irregular fragment of wong soft tissue that measure 0.4cm in greatest dimension. The specimen is totally submitted in one cassette. B. Received in fixative is one container labeled with the patient's name and designated GE junction biopsy. The specimen consists of one irregular fragment of wong soft tissue that measures 0.3cm in greatest dimension. The specimen is totally submitted in one cassette. C. Received in fixative is one container labeled with the patient's name and designated Rectal polyp. The specimen consists of one irregular fragment of wong soft tissue that measures 0.3cm in greatest dimension The specimen is totally submitted in one cassette. 04/13/2024 TC:5 CPT:22540e8 Patient Age/Sex Location Account Attending Physician MARIAN BARBER 38/M [facility] [id number] Dr. Edilson Islas, DO Signed (signature on file) Dr. Reinaldo Montero MD 04/14/24 1343 Normal [facility] Comment on above: Performed By: #### L 100.0500, L500.2500 #### [facility] [address] [place], [address] CBC W/Diff, Automatedon 03-27 Absolute Lymph 1.92 X10 3/uL Normal 0.83-4.51 [facility] Comment on above: Performed By: #### L 100.0600 #### [facility] [address] [place], [address] Absolute Neut 3.8 X10 3/uL Normal 2.0-7.7 [facility] Comment on above: Performed By: #### L 100.0600 #### [facility] [address] [place], [address] Basophils/100 WBC (Bld) 0.9 % Normal 0-1 [facility] Comment on above: Performed By: #### L 100.0600 #### [facility] [address] [place], [address] Eosinophils/100 WBC (Bld) 2.0 % Normal 0-5 [facility] Comment on above: Performed By: #### L 100.0600 #### [facility] [address] [place], [address] Erythrocyte distribution width (RBC) [Ratio] 13.2 % Normal 11.6-14.6 [facility] Comment on above: Performed By: #### L 100.0600 #### [facility] [address] [place], [address] Hematocrit (Bld) [Volume fraction] 39.2 % Low 40-54 [facility] Comment on above: Performed By: #### L 100.0600 #### [facility] [address] [place], [address] Hemoglobin (Bld) [Mass/Vol] 12.9 g/dL Low 13.0-16.5 [facility] Comment on above: Performed By: #### L 100.0600 #### [facility] [address] [place], [address] IG% 0.300 Normal 0.0-0.9 [facility] Comment on above: Result Comment: IG% - Immature Granulocytes (promyelocytes, myelocytes and metamyelocytes) > 1% indicates that a LEFT SHIFT is Present. Performed By: #### L 100.0600 #### [facility] [address] [place], [address] Lymphocytes/100 WBC (Bld) 28.9 % Normal 19-41 [facility] Comment on above: Performed By: #### L 100.0600 #### [facility] [address] [place], [address] MCH (RBC) [Entitic mass] 28.3 pg Normal 27.0-32.0 [facility] Comment on above: Performed By: #### L 100.0600 #### [facility] [address] [place], [address] MCHC (RBC) [Mass/Vol] 32.9 g/dL Normal 32-36 [facility] Comment on above: Performed By: #### L 100.0600 #### [facility] [address] [place], [address] MCV (RBC) [Entitic vol] 86.0 fL Normal 80-94 [facility] Comment on above: Performed By: #### L 100.0600 #### [facility] [address] [place], [address] Monocytes/100 WBC (Bld) 10.8 % High 0-10 [facility] Comment on above: Performed By: #### L 100.0600 #### [facility] [address] [place], [address] Neutrophils/100 WBC (Bld) 57.1 % Normal 47-70 [facility] Comment on above: Performed By: #### L 100.0600 #### [facility] [address] [place], [address] Nucleated RBC (Bld) [#/Vol] 0 10*3/uL Normal 0-5 [facility] Comment on above: Performed By: #### L 100.0600 #### [facility] [address] [place], [address] Platelet mean volume (Bld) [Entitic vol] 10.0 fL Normal 6.2-12.0 [facility] Comment on above: Performed By: #### L 100.0600 #### [facility] [address] [place], [address] Platelets (Bld) [#/Vol] 324 10*3/uL Normal 150-450 [facility] Comment on above: Performed By: #### L 100.0600 #### [facility] [address] [place], [address] RBC (Bld) [#/Vol] 4.56 10*6/uL Low 4.6-6.2 [facility] Comment on above: Performed By: #### L 100.0600 #### [facility] [address] [place], [address] RDW SD 41.6 fl Normal 35.1-43.9 [facility] Comment on above: Performed By: #### L 100.0600 #### [facility] [address] [place], [address] WBC (Bld) [#/Vol] 6.6 10*3/uL Normal 4.4-11.0 [facility] Comment on above: Performed By: #### L 100.0600 #### [facility] [address] [place], [address] CBC W/Diff, Automatedon 11 Absolute Lymph 2.38 X10 3/uL Normal 0.83-4.51 [facility] Comment on above: Performed By: #### L 100.0500, L500.2500 #### [facility] [address] [place], [address] Absolute Neut 8.6 X10 3/uL High 2.0-7.7 [facility] Comment on above: Performed By: #### L 100.0500, L500.2500 #### [facility] [address] [place], [address] Basophils/100 WBC (Bld) 0.4 % Normal 0-1 [facility] Comment on above: Performed By: #### L 100.0500, L500.2500 #### [facility] [address] [place], [address] Eosinophils/100 WBC (Bld) 0.9 % Normal 0-5 [facility] Comment on above: Performed By: #### L 100.0500, L500.2500 #### [facility] [address] [place], [address] Erythrocyte distribution width (RBC) [Ratio] 13.4 % Normal 11.6-14.6 [facility] Comment on above: Performed By: #### L 100.0500, L500.2500 #### [facility] [address] [place], [address] Hematocrit (Bld) [Volume fraction] 37.2 % Low 40-54 [facility] Comment on above: Performed By: #### L 100.0500, L500.2500 #### [facility] [address] [place], [address] Hemoglobin (Bld) [Mass/Vol] 12.3 g/dL Low 13.0-16.5 [facility] Comment on above: Performed By: #### L 100.0500, L500.2500 #### [facility] [address] [place], [address] IG% 0.500 Normal 0.0-0.9 [facility] Comment on above: Result Comment: IG% - Immature Granulocytes (promyelocytes, myelocytes and metamyelocytes) > 1% indicates that a LEFT SHIFT is Present. Performed By: #### L 100.0500, L500.2500 #### [facility] [address] [place], [address] Lymphocytes/100 WBC (Bld) 19.7 % Normal 19-41 [facility] Comment on above: Performed By: #### L 100.0500, L500.2500 #### [facility] [address] [place], [address] MCH (RBC) [Entitic mass] 28.5 pg Normal 27.0-32.0 [facility] Comment on above: Performed By: #### L 100.0500, L500.2500 #### [facility] [address] [place], [address] MCHC (RBC) [Mass/Vol] 33.1 g/dL Normal 32-36 [facility] Comment on above: Performed By: #### L 100.0500, L500.2500 #### [facility] [address] [place], [address] MCV (RBC) [Entitic vol] 86.3 fL Normal 80-94 [facility] Comment on above: Performed By: #### L 100.0500, L500.2500 #### [facility] [address] [place], [address] Monocytes/100 WBC (Bld) 7.2 % Normal 0-10 [facility] Comment on above: Performed By: #### L 100.0500, L500.2500 #### [facility] [address] [place], [address] Neutrophils/100 WBC (Bld) 71.3 % High 47-70 [facility] Comment on above: Performed By: #### L 100.0500, L500.2500 #### [facility] [address] [place], [address] Nucleated RBC (Bld) [#/Vol] 0 10*3/uL Normal 0-5 [facility] Comment on above: Performed By: #### L 100.0500, L500.2500 #### [facility] [address] [place], [address] Platelet mean volume (Bld) [Entitic vol] 9.9 fL Normal 6.2-12.0 [facility] Comment on above: Performed By: #### L 100.0500, L500.2500 #### [facility] [address] [place], [address] Platelets (Bld) [#/Vol] 295 10*3/uL Normal 150-450 [facility] Comment on above: Performed By: #### L 100.0500, L500.2500 #### [facility] [address] [place], [address] RBC (Bld) [#/Vol] 4.31 10*6/uL Low 4.6-6.2 [facility] Comment on above: Performed By: #### L 100.0500, L500.2500 #### [facility] [address] [place], [address] RDW SD 42.0 fl Normal 35.1-43.9 [facility] Comment on above: Performed By: #### L 100.0500, L500.2500 #### [facility] [address] [place], [address] WBC (Bld) [#/Vol] 12.1 10*3/uL High 4.4-11.0 [facility] Comment on above: Performed By: #### L 100.0500, L500.2500 #### [facility] [address] [place], [address] HH, Hemoglobin AND Hematocri ton 04-11-2024 Hematocrit (Bld) [Volume fraction] 38.2 % Low 40-54 [facility] Comment on above: Performed By: #### L 100.0500, L500.2500 #### [facility] [address] [place], [address] Hemoglobin (Bld) [Mass/Vol] 12.4 g/dL Low 13.0-16.5 [facility] Comment on above: Performed By: #### L 100.0500, L500.2500 #### [facility] [address] [place], [address] Basic Metabolic Profile (BMP )on 04-10-2024 BUN/CRE 9.6 RATIO Low 10-20 [facility] Comment on above: Performed By: #### L 100.0500, L500.2500 #### [facility] [address] [place], [address] CA,Total 9.2 mg/dL Normal 8.5-10.1 [facility] Comment on above: Performed By: #### L 100.0500, L500.2500 #### [facility] [address] [place], [address] Chloride [Moles/Vol] 107 mmol/L Normal 98-107 [facility] Comment on above: Performed By: #### L 100.0500, L500.2500 #### [facility] [address] [place], [address] CO2 [Moles/Vol] 25.0 mmol/L Normal 21.0-32.0 [facility] Comment on above: Performed By: #### L 100.0500, L500.2500 #### [facility] [address] [place], [address] Creatinine [Mass/Vol] 1.15 mg/dL Normal 0.70-1.30 [facility] Comment on above: Result Comment: The validity of the calculated GFR GFRAA in patients over 70 years has not been determined. Clinical correlation is essential. Performed By: #### L 100.0500, L500.2500 #### [facility] [address] [place], [address] ECRCL 93.52 ml/min Normal [facility] Comment on above: Performed By: #### L 100.0500, L500.2500 #### [facility] [address] [place], [address] EST GFR - AA 92 mL/min Normal >60 [facility] Comment on above: Result Comment: Afri can [place] Citizen GFR Calc Performed By: #### L 100.0500, L500.2500 #### [facility] [address] [place], [address] GAP 7 Normal 5-15 [facility] Comment on above: Performed By: #### L 100.0500, L500.2500 #### [facility] [address] [place], [address] GFR/1.73 sq M.predicted among non-blacks MDRD (S/P/Bld) [Vol rate/Area] 76 mL/min/{1.73_m2} Normal >60 [facility] Comment on above: Result Comment: Non- GFR Calc Performed By: #### L 100.0500, L500.2500 #### [facility] [address] [place], [address] Glucose [Mass/Vol] 105 mg/dL Normal 74-106 [facility] Comment on above: Result Comment: Fast ing Glucose result from 100 to 125 mg/dL suggests IMPAIRED HOMEOSTASIS per A.D.A. criteria. Performed By: #### L 100.0500, L500.2500 #### [facility] [address] [place], [address] Potassium [Moles/Vol] 4.0 mmol/L Normal 3.5-5.1 [facility] Comment on above: Performed By: #### L 100.0500, L500.2500 #### [facility] [address] [place], [address] Sodium [Moles/Vol] 139 mmol/L Normal 136-145 [facility] Comment on above: Performed By: #### L 100.0500, L500.2500 #### [facility] [address] [place], [address] Urea nitrogen [Mass/Vol] 11 mg/dL Normal 7-18 [facility] Comment on above: Performed By: #### L 100.0500, L500.2500 #### [facility] [address] [place], [address] CBC-Complete Blood Cnt No Di ffon 04-10-2024 Erythrocyte distribution width (RBC) [Ratio] 13.5 % Normal 11.6-14.6 [facility] Comment on above: Performed By: #### L 100.0500, L500.2500 #### [facility] [address] [place], [address] Hematocrit (Bld) [Volume fraction] 41.6 % Normal 40-54 [facility] Comment on above: Performed By: #### L 100.0500, L500.2500 #### [facility] [address] [place], [address] Hemoglobin (Bld) [Mass/Vol] 13.9 g/dL Normal 13.0-16.5 [facility] Comment on above: Performed By: #### L 100.0500, L500.2500 #### [facility] [address] [place], [address] MCH (RBC) [Entitic mass] 28.5 pg Normal 27.0-32.0 [facility] Comment on above: Performed By: #### L 100.0500, L500.2500 #### [facility] [address] [place], [address] MCHC (RBC) [Mass/Vol] 33.4 g/dL Normal 32-36 [facility] Comment on above: Performed By: #### L 100.0500, L500.2500 #### [facility] [address] [place], [address] MCV (RBC) [Entitic vol] 85.2 fL Normal 80-94 [facility] Comment on above: Performed By: #### L 100.0500, L500.2500 #### [facility] [address] [place], [address] Platelet mean volume (Bld) [Entitic vol] 10.2 fL Normal 6.2-12.0 [facility] Comment on above: Performed By: #### L 100.0500, L500.2500 #### [facility] [address] [place], [address] Platelets (Bld) [#/Vol] 326 10*3/uL Normal 150-450 [facility] Comment on above: Performed By: #### L 100.0500, L500.2500 #### [facility] [address] [place], [address] RBC (Bld) [#/Vol] 4.88 10*6/uL Normal 4.6-6.2 [facility] Comment on above: Performed By: #### L 100.0500, L500.2500 #### [facility] [address] [place], [address] RDW SD 42.2 fl Normal 35.1-43.9 [facility] Comment on above: Performed By: #### L 100.0500, L500.2500 #### [facility] [address] [place], [address] WBC (Bld) [#/Vol] 7.9 10*3/uL Normal 4.4-11.0 [facility] Comment on above: Performed By: #### L 100.0500, L500.2500 #### [facility] [address] [place], [address] Consultation - Surgicalon Consultation - Surgical [facility] Medical Records Department [address] [place] [address] Consultation - Surgical 04/10/24 0843 MR#: [id number] Acct: [id number] Name: MARIAN BARBER Rep #: [id number] : 1985 38 From: Blu Wagner MD PCP: Dr. Saroj Michel, DO Status:ADM IN Location: [place] [id number] Assessment Plan Assessment/Plan (1) Acute lower gastrointestinal bleeding: PLAN: The patient is a 38-year-old male with a history of recent blood per rectum. He recently underwent a flexible sigmoidoscopy and Botox injection for fissure about 2 weeks ago. He also had a colonoscopy back in November which was pretty unremarkable. Nevertheless he had increased blood per rectum along with clot yesterday. He presented to the emergency room. I was asked as a second opinion to evaluate the blood per rectum. I have offered him rectal exam under anesthesia/flexible sigmoidoscopy. He wished to proceed. This will begin momentarily HPI Consult Data Date of Consult: 04/10/24 HPI Narrative Reason for Consultation: Rectal bleeding HPI Narrative: MARIAN BARBER, is a 38 M who presented overnight to the emergency department with blood per rectum. It sounds as though this is a recent problem for him at least since September of this year. 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 His last intervention was 2 weeks ago when he had what sounds to be a flexible sigmoidoscopy as well as Botox injection to a anal fissure. It sounds as though he may have had something performed to internal hemorrhoids as well. This was performed here at [facility] by Dr. Aguayo. It sounds as though he was doing very well for the past 2 weeks only to then have 3 recent bloody bowel movements with clot within the past few days. He presented to the emergency room where he was seen and evaluated. Gross blood was noted by ER staff. Hemoglobin remained stable. Patient quested a second opinion and so I was contacted by the ER staff to consult on this case. This morning patient is doing well. [facility] Medical History Diverticulosis Carrington esophagus Wears glasses Wears contact lenses Kidney stones Migraine headache Injury of head and neck Gastric reflux Chewing tobacco dependence Asthma History of stress test Hemorrhoids Traumatic brain injury Left ankle instability Hypercholesteremia Vasectomy evaluation ADHD Tobacco use GERD (gastroesophageal reflux disease) Lab test negative for COVID-19 virus Home Medications ???Medication ???Instructions ???Recorded ???Last Taken ???Type sumatriptan succinate 100 mg 100 mg PO DAILY PRN MIGRAINE 06/02/17 Unknown History tablet (Imitrex) rabeprazole 20 mg tablet,delayed 20 mg PO DAILY GERD 30 days #30 05/07/22 04/09/24 Rx release (AcipHex) tabs dextroamphetamine-amphe tamine 20 20 mg PO DAILY ADHD 12/10/23 04/09/24 History mg tablet (Adderall) multivitamin (Daily Multi-Vitamin 1 tab PO DAILY HEALTH MAINTENANCE 12/10/23 04/09/24 History tablet) budesonide 3 mg 6 mg (2 x 3 mg) PO DAILY CROHNS 12/18/23 04/09/24 Rx capsule,delayed,extende d release DISEASE #60 ea Diltiazem 10mg/Lidocaine 50mg 1 supp AK BID 21 days #30 supp 03/23/24 Unknown Rx Suppository 30 supp suppository Hydrocortisone 2.5% / Lidocaine 5% #1 ea 03/23/24 Unknown Rx ointment (cmpd) (Hydrocortisone 2.5%/lidocaine 5% ointment (compound)) lisdexamfetamine 70 mg capsule 70 mg PO DAILY ADHD 03/24/24 04/09/24 History (Vyvanse) Allergy/AdvReac Type Severity Reaction Status Date / Time amoxicillin Allergy Hives Verified 04/09/24 15:12 Sulfa (Sulfonamide Allergy Hives Verified 04/09/24 15:12 Antibiotics) sulfamethoxazole (From Allergy Hives Verified 04/09/24 15:12 Septra) trimethoprim (From ) Allergy Hives Verified 04/09/24 15:12 Surgical History Hx of vasectomy Social History Smoking Status: Never smoker Physical Exam Const alert, oriented x3 and no apparent distress Lab / Micro Data 04/10/24 05:18 04/10/24 05:18 Labs: Laboratory Results - last 24 hr 04/09/24 16:03: Sodium 138, Potassium 3.6, Chloride 106, Carbon Dioxide 26.0, Anion Gap 5, BUN 10, Creatinine 1.16, Estim Creat Clear Calc 92.40, Est GFR (MDRD) Af Amer 91, Est GFR (MDRD) Non-Af 75, BUN/Creatinine Ratio 8.6 L, Glucose 101, Calcium 9.3 04/09/24 17:08: Blood Type O NEGATIVE, Antibody Screen NEGATIVE 04/09/24 18:22: WBC 8.0, RBC 4.73, Hgb 13.3, Hct 40.2, MCV 85.0, MCH 28.1, MCHC 33.1, RDW Std Deviation 41.5, RDW Coeff of George 13.3, Plt Count 301, MPV 10.0 04/09/24 20:54: Hgb 13.6, Hct 40.4 04/10/24 05:18: WBC 7.9, RBC 4.88, Hgb 13.9, Hct 41.6, MCV 85.2, MCH 28.5, MCHC 33.4, RDW Std Deviation (more content not included)... Normal [facility] HH, Hemoglobin AND Hematocri ton 04-10-2024 Hematocrit (Bld) [Volume fraction] 43.1 % Normal 40-54 [facility] Comment on above: Performed By: #### L 100.0600 #### [facility] [address] [place], [address] Hemoglobin (Bld) [Mass/Vol] 14.3 g/dL Normal 13.0-16.5 [facility] Comment on above: Performed By: #### L 100.0600 #### [facility] [address] [place], [address] MR/POSTOP.ANEon 04-10-2024 MR/POSTOP.[facility] Medical Records Department [address] [place] [address] Anesthesia Postop Eval I 04/10/24 1255 MR#: [id number] Acct: [id number] Name: MARIAN BARBER Rep #: [id number] : 1985 38 From: Luiza Dangelo CRNA PCP: Dr. Saroj Michel, DO Status:ADM IN Y Race: C Location: [place] [address] Anesthesia: Postop Eval I Current Vital Signs Temperature: 98.3 F Pulse Rate: 96 Blood Pressure: 114/65 Respiratory Rate: 16 Pulse Ox: 96 Oxygen Delivery Method: Room Air Assessment Airway patent: Yes Spontaneous unlabored respirations: Yes Mental status: Awake and Calm nausea: No Vomiting: No Anesthesia Complication: No Fluid Hydration Crystalloid volume administer (ml): 10 Total IV fluid infused: 10 Progress Note Anesthesia document: Postop Eval 1 completed: Yes 04/10/24 1258 Date Luiza Dangelo ANIMAL TRAPPER Cosigner Signature: Date CC: Signed Normal [facility] [id number] 04-10-2024 [facility] Department [address] [place] [address] Anesthesia Postop Eval II 04/10/24 1631 MR#: [id number] Acct: [id number] Name: MARIAN BARBER Rep #: [id number] : 1985 38 From: Edmar Roper MD PCP: Dr. Saroj Michel, DO Status:ADM IN Y Race: C Location: [place] [address] Anesthesia Postop Eval I Sum Postop Eval Completion status Anesthesia document: Postop Eval 1 completed: Yes Anesthesia Postop Eval I Summary Anesthesia Postop Eval I Summary: Anesthesia Postop Eval I: Assessment Summary Airway patent Yes 04/10/24 12:58 ANIMAL TRAPPER.SKOBY Spontaneous unlabored Yes 04/10/24 12:58 ANIMAL TRAPPER.SKOBY respirations Mental status Awake,Calm 04/10/24 12:58 ANIMAL TRAPPER.SKOBY nausea No 04/10/24 12:58 ANIMAL TRAPPER.SKOBY Vomiting No 04/10/24 12:58 ANIMAL TRAPPER.SKOBY Anesthesia Postop Eval I: Fluid Summary Crystalloid volume administer 10 04/10/24 12:58 ANIMAL TRAPPER.TUNDE (ml) Colloids volume administered ( ml) Blood Product volume administered (ml) Total IV fluid infused 10 04/10/24 12:58 ANIMAL TRAPPER.MARQUEZOBRose Mary Anesthesia Postop Eval I: Summary Notes Anesthesia Complication No 04/10/24 12:58 ANIMAL TRAPPER.TUNDE Anesthesia Complication Comment: Post-operative progress note Anesthesia: Postop Eval II Evaluation Mental status: Awake and Calm Pain Level: 0 nausea: No Vomiting: No Complications Anesthesia Complication: No 04/10/24 1644 Date Edmar Jaquezigner Signature: Date CC: Signed Normal [facility] Operative Reporton 4 Operative Report [facility] Medical Records Department [address] [place] [address] Operative Report 04/10/24 1257 MR#: [id number] Acct: [id number] Name: MARIAN BARBER Rep #: [id number] : 1985 38 From: Blu Wagner MD PCP: Dr. Saroj Michel, Status:ADM IN Location: [address] Problems Associated Problem List Diagnoses (1) Acute lower gastrointestinal bleeding: Operative Report (Standard) Operative Information Surgery/Procedure Performed: 1. Rectal exam under anesthesia 2. Flexible sigmoidoscopy Surgeon: Blu Wagner Date of Procedure: 04/10/24 Procedure Start Time: 12:13 Procedure Stop Time: 12:47 Pre-Operative Diagnosis: GI bleed Post-Operative Diagnosis: Same Select all DRAINS/GRAFTS/IMPLANTS that apply: None Type of Anesthesia: MAC Estimated Blood Loss: None Specimen collected: No Description of surgery: The patient is a 38-year-old male who presented overnight to the emergency department with blood per rectum. He has been having episodes of blood per rectum since September. He underwent colonoscopy in November without an obvious cause. He underwent a flexible sigmoidoscopy about 2 weeks ago along with Botox injection for anal pain. Patient was admitted and wanted a second opinion and so a general surgery consult was obtained. I suspect that his bleeding initially was anal rectal or sigmoid in nature and so I offered to perform a flexible sigmoidoscopy along with a rectal exam under anesthesia and he wished to proceed. He was brought to the operating room today following informed consent. Timeout was performed. He was placed supine on the operative table. MAC anesthesia was induced. Once adequately anesthetized his legs were placed in a modified lithotomy position. Rectal exam was performed. He did have some moderate external hemorrhoids and a small posterior fissure but these did not seem to be causing any bleeding. Once digital rectal exam was performed a copious amount of dark red blood and clot drained out. At this point we proceeded with the insertion of the colonoscope. Upon entry there was a copious amount of blood in the rectum along with clot. I very cautiously advance the scope irrigating and suctioning as we advance. I was able to advance the scope to about 80 to 90 cm at this point I encountered a copious amount of clot and stool which really precluded any further advancement of the scope. At this point I slowly withdrew the scope irrigating and sucking as much clot out as possible. No readily apparent source was identified. Based on the appearance I would suspect either diverticular source or even an upper GI source as a another possibility. The scope was eventually withdrawn and the patient was awakened anesthesia. Would recommend continued close observation and fluid resuscitation. If he remains clinically stable he would probably benefit from bowel prep and another attempt at colonoscopy and possibly even EGD as well. It is important to note that no obvious acute source of bleeding was noted however most of the blood was old appearing with clot. 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 Rivera Banda DO; Dr. Saroj Michel DO; Dr. Blu Wagner MD Signed Normal [facility] Basic Metabolic Profile (BMP )on 04-09-2024 BUN/CRE 8.6 RATIO Low 10-20 [facility] Comment on above: Performed By: #### L 500.2500, L100.0500 #### [facility] [address] [place], [address] CA,Total 9.3 mg/dL Normal 8.5-10.1 [facility] Comment on above: Performed By: #### L 500.2500, L100.0500 #### [facility] [address] [place], [address] Chloride [Moles/Vol] 106 mmol/L Normal 98-107 [facility] Comment on above: Performed By: #### L 500.2500, L100.0500 #### [facility] [address] [place], [address] CO2 [Moles/Vol] 26.0 mmol/L Normal 21.0-32.0 [facility] Comment on above: Performed By: #### L 500.2500, L100.0500 #### [facility] [address] [place], [address] Creatinine [Mass/Vol] 1.16 mg/dL Normal 0.70-1.30 [facility] Comment on above: Result Comment: The validity of the calculated GFR GFRAA in patients over 70 years has not been determined. Clinical correlation is essential. Performed By: #### L 500.2500, L100.0500 #### [facility] [address] [place], [address] ECRCL 92.40 ml/min Normal [facility] Comment on above: Performed By: #### L 500.2500, L100.0500 #### [facility] [address] [place], [address] EST GFR - AA 91 mL/min Normal >60 [facility] Comment on above: Result Comment: Afri can [place] Citizen GFR Calc Performed By: #### L 500.2500, L100.0500 #### [facility] [address] [place], [address] GAP 5 Normal 5-15 [facility] Comment on above: Performed By: #### L 500.2500, L100.0500 #### [facility] [address] [place], [address] GFR/1.73 sq M.predicted among non-blacks MDRD (S/P/Bld) [Vol rate/Area] 75 mL/min/{1.73_m2} Normal >60 [facility] Comment on above: Result Comment: Non- GFR Calc Performed By: #### L 500.2500, L100.0500 #### [facility] [address] [place], [address] Glucose [Mass/Vol] 101 mg/dL Normal 74-106 [facility] Comment on above: Result Comment: Fast ing Glucose result from 100 to 125 mg/dL suggests IMPAIRED HOMEOSTASIS per A.D.A. criteria. Performed By: #### L 500.2500, L100.0500 #### [facility] [address] [place], [address] Potassium [Moles/Vol] 3.6 mmol/L Normal 3.5-5.1 [facility] Comment on above: Performed By: #### L 500.2500, L100.0500 #### [facility] [address] [place], [address] Sodium [Moles/Vol] 138 mmol/L Normal 136-145 [facility] Comment on above: Performed By: #### L 500.2500, L100.0500 #### [facility] [address] [place], [address] Urea nitrogen [Mass/Vol] 10 mg/dL Normal 7-18 [facility] Comment on above: Performed By: #### L 500.2500, L100.0500 #### [facility] [address] [place], [address] CBC W/Diff, Automatedon 11-05 30-2023 Absolute Lymph 2.67 X10 3/uL Normal 0.83-4.51 [facility] Comment on above: Order Comment: SPOKE TO LORILIE PT CHECKED IN UP THERE SENT LABEL FOR CBCD UP THERE. Performed By: #### L 100.0100 #### [facility] [address] [place], [address] Absolute Neut 4.7 X10 3/uL Normal 2.0-7.7 [facility] Comment on above: Order Comment: SPOKE TO LORILIE PT CHECKED IN UP THERE SENT LABEL FOR CBCD UP THERE. Performed By: #### L 100.0100 #### [facility] [address] [place], [address] Basophils/100 WBC (Bld) 1.1 % High 0-1 [facility] Comment on above: Order Comment: SPOKE TO LORILIE PT CHECKED IN UP THERE SENT LABEL FOR CBCD UP THERE. Performed By: #### L 100.0100 #### [facility] [address] [place], [address] Eosinophils/100 WBC (Bld) 1.3 % Normal 0-5 [facility] Comment on above: Order Comment: SPOKE TO LORILIE PT CHECKED IN UP THERE SENT LABEL FOR CBCD UP THERE. Performed By: #### L 100.0100 #### [facility] [address] [place], [address] Erythrocyte distribution width (RBC) [Ratio] 13.2 % Normal 11.6-14.6 [facility] Comment on above: Order Comment: SPOKE TO LORILIE PT CHECKED IN UP THERE SENT LABEL FOR CBCD UP THERE. Performed By: #### L 100.0100 #### [facility] [address] [place], [address] Hematocrit (Bld) [Volume fraction] 44.5 % Normal 40-54 [facility] Comment on above: Order Comment: SPOKE TO LORILIE PT CHECKED IN UP THERE SENT LABEL FOR CBCD UP THERE. Performed By: #### L 100.0100 #### [facility] [address] [place], [address] Hemoglobin (Bld) [Mass/Vol] 14.6 g/dL Normal 13.0-16.5 [facility] Comment on above: Order Comment: SPOKE TO LORILIE PT CHECKED IN UP THERE SENT LABEL FOR CBCD UP THERE. Performed By: #### L 100.0100 #### [facility] [address] [place], [address] IG% 0.500 Normal 0.0-0.9 [facility] Comment on above: Order Comment: SPOKE TO LORILIE PT CHECKED IN UP THERE SENT LABEL FOR CBCD UP THERE. Result Comment: IG% - Immature Granulocytes (promyelocytes, myelocytes and metamyelocytes) > 1% indicates that a LEFT SHIFT is Present. Performed By: #### L 100.0100 #### [facility] [address] [place], [address] Lymphocytes/100 WBC (Bld) 32.3 % Normal 19-41 [facility] Comment on above: Order Comment: SPOKE TO LORILIE PT CHECKED IN UP THERE SENT LABEL FOR CBCD UP THERE. Performed By: #### L 100.0100 #### [facility] [address] [place], [address] MCH (RBC) [Entitic mass] 27.8 pg Normal 27.0-32.0 [facility] Comment on above: Order Comment: SPOKE TO LORILIE PT CHECKED IN UP THERE SENT LABEL FOR CBCD UP THERE. Performed By: #### L 100.0100 #### [facility] [address] [place], [address] MCHC (RBC) [Mass/Vol] 32.8 g/dL Normal 32-36 [facility] Comment on above: Order Comment: SPOKE TO LORILIE PT CHECKED IN UP THERE SENT LABEL FOR CBCD UP THERE. Performed By: #### L 100.0100 #### [facility] [address] [place], [address] MCV (RBC) [Entitic vol] 84.8 fL Normal 80-94 [facility] Comment on above: Order Comment: SPOKE TO LORILIE PT CHECKED IN UP THERE SENT LABEL FOR CBCD UP THERE. Performed By: #### L 100.0100 #### [facility] [address] [place], [address] Monocytes/100 WBC (Bld) 8.2 % Normal 0-10 [facility] Comment on above: Order Comment: SPOKE TO LORILIE PT CHECKED IN UP THERE SENT LABEL FOR CBCD UP THERE. Performed By: #### L 100.0100 #### [facility] [address] [place], [address] Neutrophils/100 WBC (Bld) 56.6 % Normal 47-70 [facility] Comment on above: Order Comment: SPOKE TO LORILIE PT CHECKED IN UP THERE SENT LABEL FOR CBCD UP THERE. Performed By: #### L 100.0100 #### [facility] [address] [place], [address] Nucleated RBC (Bld) [#/Vol] 0 10*3/uL Normal 0-5 [facility] Comment on above: Order Comment: SPOKE TO LORILIE PT CHECKED IN UP THERE SENT LABEL FOR CBCD UP THERE. Performed By: #### L 100.0100 #### [facility] [address] [place], [address] Platelet mean volume (Bld) [Entitic vol] 10.0 fL Normal 6.2-12.0 [facility] Comment on above: Order Comment: SPOKE TO LORILIE PT CHECKED IN UP THERE SENT LABEL FOR CBCD UP THERE. Performed By: #### L 100.0100 #### [facility] [address] [place], [address] Platelets (Bld) [#/Vol] 355 10*3/uL Normal 150-450 [facility] Comment on above: Order Comment: SPOKE TO LORILIE PT CHECKED IN UP THERE SENT LABEL FOR CBCD UP THERE. Performed By: #### L 100.0100 #### [facility] [address] [place], [address] RBC (Bld) [#/Vol] 5.25 10*6/uL Normal 4.6-6.2 [facility] Comment on above: Order Comment: SPOKE TO LORILIE PT CHECKED IN UP THERE SENT LABEL FOR CBCD UP THERE. Performed By: #### L 100.0100 #### [facility] [address] [place], [address] RDW SD 40.9 fl Normal 35.1-43.9 [facility] Comment on above: Order Comment: SPOKE TO LORILIE PT CHECKED IN UP THERE SENT LABEL FOR CBCD UP THERE. Performed By: #### L 100.0100 #### [facility] [address] [place], [address] WBC (Bld) [#/Vol] 8.3 10*3/uL Normal 4.4-11.0 [facility] Comment on above: Order Comment: SPOKE TO LORILIE PT CHECKED IN UP THERE SENT LABEL FOR CBCD UP THERE. Performed By: #### L 100.0100 #### [facility] [address] [place], [address] CBC-Complete Blood Cnt No Di ffon 04-09-2024 Erythrocyte distribution width (RBC) [Ratio] 13.3 % Normal 11.6-14.6 [facility] Comment on above: Performed By: #### L 500.2500, L100.0500 #### [facility] [address] [place], [address] Hematocrit (Bld) [Volume fraction] 40.2 % Normal 40-54 [facility] Comment on above: Performed By: #### L 500.2500, L100.0500 #### [facility] [address] [place], [address] Hemoglobin (Bld) [Mass/Vol] 13.3 g/dL Normal 13.0-16.5 [facility] Comment on above: Performed By: #### L 500.2500, L100.0500 #### [facility] [address] [place], [address] MCH (RBC) [Entitic mass] 28.1 pg Normal 27.0-32.0 [facility] Comment on above: Performed By: #### L 500.2500, L100.0500 #### [facility] [address] [place], [address] MCHC (RBC) [Mass/Vol] 33.1 g/dL Normal 32-36 [facility] Comment on above: Performed By: #### L 500.2500, L100.0500 #### [facility] [address] [place], [address] MCV (RBC) [Entitic vol] 85.0 fL Normal 80-94 [facility] Comment on above: Performed By: #### L 500.2500, L100.0500 #### [facility] [address] [place], [address] Platelet mean volume (Bld) [Entitic vol] 10.0 fL Normal 6.2-12.0 [facility] Comment on above: Performed By: #### L 500.2500, L100.0500 #### [facility] [address] [place], [address] Platelets (Bld) [#/Vol] 301 10*3/uL Normal 150-450 [facility] Comment on above: Performed By: #### L 500.2500, L100.0500 #### [facility] [address] [place], [address] RBC (Bld) [#/Vol] 4.73 10*6/uL Normal 4.6-6.2 [facility] Comment on above: Performed By: #### L 500.2500, L100.0500 #### [facility] [address] [place], [address] RDW SD 41.5 fl Normal 35.1-43.9 [facility] Comment on above: Performed By: #### L 500.2500, L100.0500 #### [facility] [address] [place], [address] WBC (Bld) [#/Vol] 8.0 10*3/uL Normal 4.4-11.0 [facility] Comment on above: Performed By: #### L 500.2500, L100.0500 #### [facility] [address] [place], [address] CTA Abd/Pelvis W/WO Contrast on 04-09-2024 CTA Abd/Pelvis W/WO Contrast [facility] [address] [place] [address] CTA Abd/Pelvis W/WO Contrast MR#: [id number] Acct: [id number] Name: MARIAN BARBER Rep #: [id number] : 1985 M 38 From: Jet Holguin PCP: Dr. Saroj Michel, DO Status: [facility] ER Study: CTA Abd/Pelvis W/WO Contrast Date of Exam: Exam# [id number] Ordering Dr: [place] [id number] INDICATION: History of diverticulosis, acute GI bleed, lower EXAMINATION: CTA abdomen and pelvis - TECHNIQUE: Routine abdominal CT angiogram protocol was performed with IV contrast. MIP images provided. A radiation dose optimization technique was used for this scan.The protocol utilizes one or more of the following dose reduction techniques: automated exposure control, adjustment of mA and/or kV according to patient size,and/or use of iterative reconstruction technique. IV Contrast dosage and agent: 100 mL Isovue-370 Radiation dose DLP 1187.17 mGy / cm. COMPARISON: CT abdomen and pelvis March 15, 2024. FINDINGS: Lung bases: Normal. Liver: Normal. No bile ductal dilatation. Gallbladder: Normal. Spleen: Normal. Adrenal gland: Normal. Kidneys: Normal. No hydronephrosis or stone formation. Pancreas:Normal. Bowel gas pattern: Marked colonic wall thickening within the sigmoid. Underlying mass difficult to exclude. Colonic diverticulosis. Stomach and small bowel unremarkable. Appendix: Normal. Free air: None. Free fluid: None. Pelvis: Pelvic organs: Bilateral fat-containing inguinal hernias. Bone survey: No aggressive bony lesions. No acute fractures. Adenopathy: No significant pathologic adenopathy detected. Other: None. Vascular: Normal vascular anatomy, CT/CTA Abd/Pelvis W/WO Contrast IMPRESSION: Possible nonspecific colitis or rectosigmoid mass. Recommend follow-up with rectal contrast. This may also represent hemorrhage. Electronically Signed: Jet Lam MD at 18:52 EST Reading Location ID and State: [address] [place] [address] Tel , Service support , CC: Dr. Saroj Michel DO; Dr. 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 Saroj Michel, DO Status:REG ER Location: ED HPI History of Present Illness Chief Complaint: GI Bleed Detail of Chief Complaint: Bright red blood per rectum and fullness left lower quadrant Informant: patient and spouse/S.O. Onset/Context/Timing Onset: Hours Context: Sudden Onset Timing: Continuous Quality: Fullness left lower quadrant and bright red blood per rectum Location: Lower GI Current Severity: Moderate Maximum Severity: Moderate Worsened by: Nothing Relieved by: Nothing Associated Symptoms Associated Symptoms: Question lightheadedness Narrative Narrative: Patient is a 38-year-old male. He has history of fissure and anal, internal hemorrhoids that were injected with botulism and cauterized by Dr. Aguayo. He also was noted to have diverticulosis. He states he has been doing fine since he was cauterized. Prior to arrival he has had 3 bloody stools with large clots. Clots are larger than they were in the past. He has had intermittent bleeding since September. Patient denies cardiac or respiratory symptoms. Patient denies fever, chills night sweats. Prior similar symptoms: Yes Recent Illness[facility] : [facility] Medical History Diverticulosis [place] esophagus Wears glasses Wears contact lenses Kidney stones Migraine headache Injury of head and neck Gastric reflux Chewing tobacco dependence Asthma History of stress test Hemorrhoids Traumatic brain injury Left ankle instability Hypercholesteremia Vasectomy evaluation ADHD Tobacco use GERD (gastroesophageal reflux disease) Lab test negative for COVID-19 virus Home Medications ???Medication ???Instructions ???Recorded ???Last Taken ???Type sumatriptan succinate 100 mg 100 mg PO DAILY PRN MIGRAINE 06/02/17 Unknown History tablet (Imitrex) rabeprazole 20 mg tablet,delayed 20 mg PO DAILY GERD 30 days #30 05/07/22 04/09/24 Rx release (AcipHex) tabs dextroamphetamine-amphe tamine 20 20 mg PO DAILY ADHD 12/10/23 04/09/24 History mg tablet (Adderall) multivitamin (Daily Multi-Vitamin 1 tab PO DAILY HEALTH MAINTENANCE 12/10/23 04/09/24 History tablet) budesonide 3 mg 6 mg (2 x 3 mg) PO DAILY CROHNS 12/18/23 04/09/24 Rx capsule,delayed,extende d release DISEASE #60 ea Diltiazem 10mg/Lidocaine 50mg 1 supp AK BID 21 days #30 supp 03/23/24 Unknown Rx Suppository 30 supp suppository Hydrocortisone 2.5% / Lidocaine 5% #1 ea 03/23/24 Unknown Rx ointment (cmpd) (Hydrocortisone 2.5%/lidocaine 5% ointment (compound)) lisdexamfetamine 70 mg capsule 70 mg PO DAILY ADHD 03/24/24 04/09/24 History (Vyvanse) Allergy/AdvReac Type Severity Reaction Status Date / Time amoxicillin Allergy Hives Verified 04/09/24 15:12 Sulfa (Sulfonamide Allergy Hives Verified 04/09/24 15:12 Antibiotics) sulfamethoxazole (From Allergy Hives Verified 04/09/24 15:12 Septra) trimethoprim (From ) Allergy Hives Verified 04/09/24 15:12 Surgical History Hx of vasectomy Social History Smoking Status: Never smoker ROS ROS ED Constitutional Constitutional ED: Denies chills, fever(s), subjective or sweats Eyes Eyes: Denies blurry vision or change in vision ENT ENT ED: Denies ear pain or rhinorrhea Cardiovascular Cardiovascular: Denies chest pain or palpitations Respiratory/Chest Respiratory/Chest: Denies cough, dyspnea or dyspnea on exertion Gastrointestinal Gastrointestinal: Reports abdominal pain and other Details: Hematochezia ; Denies constipation, diarrhea, melena, nausea or vomiting Neurologic Neurologic: Denies paresthesias or weakness Hematologic/Lymphatic Hematologic/Lymphatic: Reports systems reviewed and no addt'l complaints, except as documented EXAM Physical Exam Const Vital Signs: 04/09/24 15:08 04/09/24 15:54 04/09/24 17:07 Temperature 96.5 F L Temperature Source Temporal Pulse Rate 110 H 94 75 Pulse Rate [Lying] Pulse Rate [Sitting (for 1 minute prior to obtaining)] Pulse Rate [Standing (for 1 minute prior to obtaining)] Respiratory Rate 16 18 15 Respiratory Effort Respiratory Pattern Blood Pressure 140/97 H 125/89 H 151/83 H Blood Pressure [Lying] Blood Pressure [Sitting (for 1 minute prior to obtaining)] Blood Pressure [Standing (for 1 minute prior to obtaining)] Blood Pressure Mean 111 101 105 Blood Pressure Mean [Lying] Blood Pressure Mean [Sitting (for 1 minute prior (more content not included)... Normal [facility] H AND P Exam - Hospitaliston 04-09-2024 H&P Exam - Hospitalist [facility] Medical Records Department [address] [place] [address] H P Exam - Hospitalist 04/09/241926 MR#: [id number] Acct: [id number] Name: MARIAN BARBER Rep #: [id number] : 1985 38 From: Rivera Banda DO PCP: Dr. Saroj Michel, DO Status:DIS IN Location: [facility] [id number] HPI - General General Date of Admission: 04/09/24 Date of Service: 04/09/24 Chief Complaint: Bright red bloody stools HPI Narrative MARIAN BARBER, is a 38 M who presented to [facility] ED on 04/09/2024 with 3 bright red bloody stools on the afternoon of presentation. Patient is followed with Dr. Aguayo with GI since September for multiple lower bowel issues, see Dr. Aguayo's H P note from 03/27 for further details. In short patient began having some blood in his stool back in September. He had a colonoscopy on 12/10 that showed diverticulosis but no other significant concerns. He then developed significant rectal pain at the end of February. 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 Patient underwent sigmoidoscopy with Botox injection into the levator ani muscle on 03/27. He was then supposed to start hydrocortisone suppositories and creams but this had not been filled yet. He had improvement in his pain but then this afternoon had 3 bright red bloody bowel movements in a short span of time. He had no pain with these bowel movements. Did not have much stool at all with the use BMs. Because of this he came to the ED for further evaluation. CTA abdomen/pelvis showed possible nonspecific colitis versus hemorrhage. Anoscopy was performed by the ED physician and bright red blood with clots was removed. Patient was notably hemodynamically stable and hemoglobin was stable at 13. Given these findings, hospitalist was contacted for admission. I saw the patient at bedside in the ED, is present. Patient was laying comfortably in bed and in no acute distress. Patient unfortunately had some issues with Dr. Aguayo and requested to see general surgery here if a scope would be needed. ED physician spoke with Dr. Wagner and plan is for sigmoidoscopy tomorrow morning. Patient denies any other new concerns at this time. Will be admitted for further management. [facility] Medical History Diverticulosis Carrington esophagus Wears glasses Wears contact lenses Kidney stones Migraine headache Injury of head and neck Gastric reflux Chewing tobacco dependence Asthma History of stress test Hemorrhoids Traumatic brain injury Left ankle instability Hypercholesteremia Vasectomy evaluation ADHD Tobacco use GERD (gastroesophageal reflux disease) Lab test negative for COVID-19 virus Home Medications ???Medication ???Instructions ???Recorded ???Last Taken ???Type sumatriptan succinate 100 mg 100 mg PO DAILY PRN MIGRAINE 06/02/17 Unknown History tablet (Imitrex) rabeprazole 20 mg tablet,delayed 20 mg PO DAILY GERD 30 days #30 05/07/22 04/09/24 Rx release (AcipHex) tabs dextroamphetamine-amphe tamine 20 20 mg PO DAILY ADHD 12/10/23 04/09/24 History mg tablet (Adderall) multivitamin (Daily Multi-Vitamin 1 tab PO DAILY HEALTH MAINTENANCE 12/10/23 04/09/24 History tablet) budesonide 3 mg 6 mg (2 x 3 mg) PO DAILY CROHNS 12/18/23 04/09/24 Rx capsule,delayed,extende d release DISEASE #60 ea Diltiazem 10mg/Lidocaine 50mg 1 supp AK BID 21 days #30 supp 03/23/24 Unknown Rx Suppository 30 supp suppository Hydrocortisone 2.5% / Lidocaine 5% #1 ea 03/23/24 Unknown Rx ointment (cmpd) (Hydrocortisone 2.5%/lidocaine 5% ointment (compound)) lisdexamfetamine 70 mg capsule 70 mg PO DAILY ADHD 03/24/24 04/09/24 History (Vyvanse) Allergy/AdvReac Type Severity Reaction Status Date / Time amoxicillin Allergy Hives Verified 04/09/24 15:12 Sulfa (Sulfonamide Allergy Hives Verified 04/09/24 15:12 Antibiotics) sulfamethoxazole (From Allergy Hives Verified 04/09/24 15:12 Septra) trimethoprim (From Septra) Allergy Hives Verified 04/09/24 15:12 Surgical History Hx of vasectomy Social History Smoking Status: Never smoker ROS Constitutional Constitutional: Denies chills, fatigue, fever(s) or weakness Cardiovascular Cardiovascular: Denies chest pain Respiratory/Chest Respiratory/Chest: Denies shortness of breath at rest Gastrointestinal Gastrointestinal: Reports hematochezia; Denies abdominal pain, constipation, melena, nausea or vomiting Musculoskeletal Musculoskeletal: Denies arthralgias or myalgias Vital Signs Vital Signs Vital Signs: 04/09/24 15:08 04/09/24 15:54 04/09/24 17:07 Temperature 96.5 F L Temperature S (more content not included)... Normal [facility] HH, Hemoglobin AND Hematocri ton 04-09-2024 Hematocrit (Bld) [Volume fraction] 40.4 % Normal 40-54 [facility] Comment on above: Performed By: #### L 100.0600 #### [facility] [address] [place], [place], [address] (927) Hemoglobin (Bld) [Mass/Vol] 13.6 g/dL Normal 13.0-16.5 [facility] Comment on above: Performed By: #### L 100.0600 #### [facility] [address] [place], [address] Type AND Screenon 04-09-2024 Ab SCREEN GEL Negative [facility] Comment on above: Order Comment: HGI Performed By: #### B TS ####[facility] [address] [place], [address] ABO and Rh group Nom (Bld) Blood group O Rh(D) negative [facility] Comment on above: Order Comment: HGI Performed By: #### B TS ####[facility] [address] [place], [address] Office Visit Reporton 2023 Office Visit Report [facility] [address] [place] [address] OFFICE VISIT Date of Service: 03/18/24 MR#: [id number] Acct: [id number] Patient: MARIAN BARBER Rep #: [id number] : 1985 Provider: WILMER Caal Age/Sex: 38/M Location: [facility] Status: Signed Intake Vital Signs 12/11/23 07:04 Height 5 ft 6 in Intake Visit Reasons: AUDIOGRAM/PFT/TITMUS/TB / WCFF Chief Complaint: rectal pain Allergies amoxicillin Allergy (Verified 03/27/24 10:49) Hives Sulfa (Sulfonamide Antibiotics) Allergy (Verified 03/27/24 10:49) Hives sulfamethoxazole (From Septra) Allergy (Verified 03/27/24 10:49) Hives trimethoprim (From Septra) Allergy (Verified 03/27/24 10:49) Hives Office Procedures [facility] Billing Sheet Testing TB Test: Yes Vaccine Flu Vaccine (Single Dose): Yes Employer Workplace Physicals Basic Metabolic Profile (BMP): Yes CBC w/Diff: Yes Complete Metabolic Panel (CMP): Yes EKG: Yes Hemocult: Yes Lipid Panel: Yes OSHA Respiratory Questionnaire: Yes Spirometry (PFT): Yes Urinalysis: Yes Assessment and Plan Assessment and Plan Orders: Orders 12 Lead EKG performed by [facility] 03/17/24 Z02.89 - Encounter for other administrative examinations Medications: Discontinued oxycodone Discontinued Reason: By Stop Date 5 mg PO TID 10 days PRN 30 tabs 0RF PAIN K62.89 - Other specified diseases of anus and rectum Plan Details Goals Barriers: Goals Decrease spasm Improve posture Decrease inflammation Barriers Loss of cervical lordosis Decrease disc at L4/L5 and L5/S1 04/06/24 0440 Date Blu GUILLEN Cosigner Signature: Date (if applicable) CC: Normal [facility] Flex Sigmoidoscopy Reporton 03-27-2024 Flex Sigmoidoscopy Report Medical Records Department [address] [place] [address] Flex Sigmoidoscopy Report MR#: [id number] Acct: [id number] Name: MARIAN BARBER Rep #: [id number] : 1985 38 From: Eagle Aguayo DO PCP: Dr. Saroj Michel DO Status:REG SDC Patient Name: Marian Barber Procedure Date: 03/27/2024 11:10 AM Date of : 1985 Age: 38 Procedure: Flexible Sigmoidoscopy Indications: Rectal pain Providers: Eagle Aguayo DO Referring MD: Saroj Michel Medicines: Monitored Anesthesia Care Patient Profile: This is a 38 year old male. Refer to note in patient chart for documentation of history and physical. Last Colonoscopy: none. The patient's first colonoscopy is today. Complications: No immediate complications. Procedure: Pre-Anesthesia Assessment: - Prior to the procedure, a History and Physical was performed, and patient medications and allergies were reviewed. The patient is competent. The risks and benefits of the procedure and the sedation options and risks were discussed with the patient. All questions were answered and informed consent was obtained. Patient identification and proposed procedure were verified by the physician in the pre-procedure area. Mental Status Examination: alert and oriented. Airway Examination: normal oropharyngeal airway and neck mobility. Respiratory Examination: clear to auscultation. CV Examination: normal. Prophylactic Antibiotics: The patient does not require prophylactic antibiotics. Prior Anticoagulants: The patient has taken no anticoagulant or antiplatelet agents except for NSAID medication. ASA Grade Assessment: II - A patient with mild systemic disease. After reviewing the risks and benefits, the patient was deemed in satisfactory condition to undergo the procedure. The anesthesia plan was to use monitored anesthesia care (MAC). Immediately prior to administration of medications, the patient was re-assessed for adequacy to receive sedatives. The heart rate, respiratory rate, oxygen saturations, blood pressure, adequacy of pulmonary ventilation, and response to care were monitored throughout the procedure. The physical status of the patient was re-assessed after the procedure. After obtaining informed consent, the endoscope was passed under direct vision. Throughout the procedure, the patient's blood pressure, pulse, and oxygen saturations were monitored continuously. The Colonoscope was introduced through the anus and advanced to the sigmoid colon. The flexible sigmoidoscopy was accomplished without difficulty. The patient tolerated the procedure well. No bowel preparation was given prior to the procedure. Scope In: Scope Out: 12:44:06 PM Findings: An anal fissure was found on perianal exam. Localized mild inflammation characterized by erythema and friability was found in the rectum. Biopsies were taken with a cold forceps for histology. Verification of patient identification for the specimen was done. Estimated blood loss was minimal. Non-bleeding external and internal hemorrhoids were found during retroflexion. The hemorrhoids were Grade I (internal hemorrhoids that do not prolapse). Coagulation to prevent future bleeding of internal hemorrhoids using argon plasma at 0.3 liters/minute and 20 crouch was successful. Estimated blood loss was minimal. A 5 mm anal fissure was found in the anal canal. The internal anal sphincter was successfully injected with 180 units botulinum toxin. 180 units of botulinum A toxin were administered locally, in order to reduce the internal anal sphincter pressure. Injections in the internal anal sphincter were done in eight sites. Impression: - Anal fissure found on perianal exam. - Localized mild inflammation was found in the rectum secondary to colitis. Biopsied. - Non-bleeding external and internal hemorrhoids. Treated with thermal therapy. - Anal fissure. Injected with botulinum toxin. Recommendation: - Use original regular Metamucil one teaspoon PO daily for 2 weeks. Procedure Code(s): --- Professional --- 21363, Chemodenervation of internal anal sphincter 59992, Destruction of internal hemorrhoid(s) by thermal energy (eg, infrared coagulation, cautery, radiofrequency) 63147, Sigmoidoscopy, flexible; with biopsy, single or multiple CPT copyright 2021 [employer]. All rights reserved. The codes documented in this report are preliminary and upon station installer and repairer review may be revised to meet current compliance requirements. Eagle Aguayo DO 03/27/2024 12:54:31 PM This report has been signed electronically. Number of Addenda: 0 Note Initiated On: 03/27/2024 11:10 AM 03/27/24 125 Date Eagle Dede Sánchez Signature: Date ____ (more content not included)... [facility] MR/POSTOP.ANEon 03-27-2024 MR/POSTOP.[facility] Medical Records Department [address] [place] [address] Anesthesia Postop Eval I 03/27/241252 MR#: [id number] Acct: [id number] Name: MARIAN BARBER Rep #: [id number] : 1985 38 From: Wayne Marquez PCP: Dr. Saroj Michel, DO Status:REG SDC Y Race: C Location: [place] [address] Anesthesia: Postop Eval I Current Vital Signs Temperature: 97.1 F Pulse Rate: 92 Blood Pressure: 117/68 Respiratory Rate: 12 Pulse Ox: 94 Oxygen Delivery Method: Room Air Assessment Airway patent: Yes Spontaneous unlabored respirations: Yes Mental status: Awake and Calm nausea: No Vomiting: No Anesthesia Complication: No Fluid Hydration Crystalloid volume administer (ml): 60 Total IV fluid infused: 60 Progress Note Anesthesia document: Postop Eval 1 completed: Yes 03/27/241253 Date Wayne Phelan Signature: Date CC: Signed [facility] MR/WNHHVMRC2mn 03-27-2024 MR/POSTOPA[address] Medical Records Department [address] [place] [address] Anesthesia Postop Eval II 03/27/24 1306 MR#: [id number] Acct: [id number] Name: MARIAN BARBER Rep #: [id number] : 1985 38 From: Kalen Padron MD PCP: Dr. Saroj Michel, DO Status:REG SDC Y Race: C Location: [place] [address]-1 Anesthesia Postop Eval I Sum Postop Eval Completion status Anesthesia document: Postop Eval 1 completed: Yes Anesthesia Postop Eval I Summary Anesthesia Postop Eval I Summary: Anesthesia Postop Eval I: Assessment Summary Airway patent Yes 03/27/24 12:54 [email or web address] Spontaneous unlabored Yes 03/27/24 12:54 [email or web address] respirations Mental status Awake,Calm 03/27/24 12:54 [email or web address] nausea No 03/27/24 12:54 [email or web address] Vomiting No 03/27/24 12:54 [email or web address] Anesthesia Postop Eval I: Fluid Summary Crystalloid volume administer 60 03/27/24 12:54 [email or web address] (ml) Colloids volume administered ( ml) Blood Product volume administered (ml) Total IV fluid infused 60 03/27/24 12:54 [email or web address] Anesthesia Postop Eval I: Summary Notes Anesthesia Complication No 03/27/24 12:54 [email or web address] Anesthesia Complication Comment: Post-operative progress note Anesthesia: Postop Eval II Evaluation Mental status: Awake Pain Level: 0 nausea: No Vomiting: No 03/27/24 1306 Date Kalen Padron MD Cosigner Signature: Date CC: Signed Normal [facility] Surgery Specimen Level Varinder 03-27-2024 Surgery Specimen Level IV Patient Age/Sex Location Account Attending Physician MARIAN BARBER 38/M EN [id number] Eagle Aguayo DO Specimen: [id number] Received: 03/27/24 Status: DRU Clark Num: [id number] Spec Type: COLON BX Subm Dr: Eagle Aguayo DO HEADER OPERATION: Flexible sigmoidoscopy with Botox, and biopsy PRE-OP DIAGNOSIS: Rectal pain TISSUE SUBMITTED: A- Rectal biopsy, B- Anal rectal verge MICROSCOPIC DIAGNOSIS A. Rectal biopsy: Focal minimal acute colitis. See comment. B. Anal rectal verge, biopsy: Fragments of colonic mucosa with congestion and hemorrhage. See comment. MIKE/mr 03/31/2024 COMMENT A. Minimal acute inflammatory cell infiltrates in the lamina propria and rare cryptitis are noted. Glandular distortion, crypt abscess or granulomas are not seen. Correlation with clinical, endoscopic findings and appropriate follow up are necessary. MICROSCOPIC DESCRIPTION Slides are reviewed. GROSS DESCRIPTION A. Received in fixative is one container labeled with the patient's name and designated Rectal biopsy. The specimen consists of two irregular fragments of light wong soft tissue that in aggregate measure 0.5 x 0.2 x 0.1 cm. The specimen is totally submitted in one cassette. B. Received in fixative is one container labeled with the patient's name and designated Anal rectal verge. The specimen consists of two irregular fragments of light wong soft tissue that in aggregate measure 0.4 x 0.2 x 0.1 cm. The specimen is totally submitted in one cassette. 03/30/2024 TC:2 CPT:95719f8 Patient Age/Sex Location Account Attending Physician MARIAN BARBER 38/Jasson EN [id number] Eagle Aguayo DO Signed (signature on file) Dr. Lucas Kidd MD 03/31/24 1221 Normal [facility] Comment on above: Performed By: #### P SUIV ####[facility] [address] [place], [address] CBC W/Diff, Automatedon 10-2 Absolute Lymph 2.19 X10 3/uL Normal 0.83-4.51 [facility] Comment on above: Performed By: #### L 100.0100, L300.3900, L300.4310, L500.4050 ####[facility] [address] [place], [address] Absolute Neut 2.9 X10 3/uL Normal 2.0-7.7 [facility] Comment on above: Performed By: #### L 100.0100, L300.3900, L300.4310, L500.4050 ####[facility] [address] [place], [address] Basophils/100 WBC (Bld) 0.9 % Normal 0-1 [facility] Comment on above: Performed By: #### L 100.0100, L300.3900, L300.4310, L500.4050 ####[facility] [address] [place], [address] Eosinophils/100 WBC (Bld) 1.4 % Normal 0-5 [facility] Comment on above: Performed By: #### L 100.0100, L300.3900, L300.4310, L500.4050 ####[facility] [address] [place], [address] Erythrocyte distribution width (RBC) [Ratio] 13.3 % Normal 11.6-14.6 [facility] Comment on above: Performed By: #### L 100.0100, L300.3900, L300.4310, L500.4050 ####[facility] [address] [place], [address] Hematocrit (Bld) [Volume fraction] 46.5 % Normal 40-54 [facility] Comment on above: Performed By: #### L 100.0100, L300.3900, L300.4310, L500.4050 ####[facility] [address] [place], [address] Hemoglobin (Bld) [Mass/Vol] 15.3 g/dL Normal 13.0-16.5 [facility] Comment on above: Performed By: #### L 100.0100, L300.3900, L300.4310, L500.4050 ####[facility] [address] [place], [address] IG% 0.200 Normal 0.0-0.9 [facility] Comment on above: Result Comment: IG% - Immature Granulocytes (promyelocytes, myelocytes and metamyelocytes) > 1% indicates that a LEFT SHIFT is Present. Performed By: #### L 100.0100, L300.3900, L300.4310, L500.4050 ####[facility] [address] [place], [address] Lymphocytes/100 WBC (Bld) 38.4 % Normal 19-41 [facility] Comment on above: Performed By: #### L 100.0100, L300.3900, L300.4310, L500.4050 ####[facility] [address] [place], [address] MCH (RBC) [Entitic mass] 28.4 pg Normal 27.0-32.0 [facility] Comment on above: Performed By: #### L 100.0100, L300.3900, L300.4310, L500.4050 ####[facility] [address] [place], [address] MCHC (RBC) [Mass/Vol] 32.9 g/dL Normal 32-36 [facility] Comment on above: Performed By: #### L 100.0100, L300.3900, L300.4310, L500.4050 ####[facility] [address] [place], [address] MCV (RBC) [Entitic vol] 86.3 fL Normal 80-94 [facility] Comment on above: Performed By: #### L 100.0100, L300.3900, L300.4310, L500.4050 ####[facility] [address] [place], [address] Monocytes/100 WBC (Bld) 8.9 % Normal 0-10 [facility] Comment on above: Performed By: #### L 100.0100, L300.3900, L300.4310, L500.4050 ####[facility] [address] [place], [address] Neutrophils/100 WBC (Bld) 50.2 % Normal 47-70 [facility] Comment on above: Performed By: #### L 100.0100, L300.3900, L300.4310, L500.4050 ####[facility] [address] [place], [address] Nucleated RBC (Bld) [#/Vol] 0 10*3/uL Normal 0-5 [facility] Comment on above: Performed By: #### L 100.0100, L300.3900, L300.4310, L500.4050 ####[facility] [address] [place], [address] Platelet mean volume (Bld) [Entitic vol] 9.8 fL Normal 6.2-12.0 [facility] Comment on above: Performed By: #### L 100.0100, L300.3900, L300.4310, L500.4050 ####[facility] [address] [place], [address] Platelets (Bld) [#/Vol] 280 10*3/uL Normal 150-450 [facility] Comment on above: Performed By: #### L 100.0100, L300.3900, L300.4310, L500.4050 ####[facility] [address] [place], [address] RBC (Bld) [#/Vol] 5.39 10*6/uL Normal 4.6-6.2 [facility] Comment on above: Performed By: #### L 100.0100, L300.3900, L300.4310, L500.4050 ####[facility] [address] [place], [address] RDW SD 42.1 fl Normal 35.1-43.9 [facility] Comment on above: Performed By: #### L 100.0100, L300.3900, L300.4310, L500.4050 ####[facility] [address] [place], [address] WBC (Bld) [#/Vol] 5.7 10*3/uL Normal 4.4-11.0 [facility] Comment on above: Performed By: #### L 100.0100, L300.3900, L300.4310, L500.4050 ####[facility] [address] [place], [address] [facility] 03-24-2024 Albumin [Mass/Vol] 4.1 g/dL Normal 3.2-5.0 [facility] Comment on above: Performed By: #### L 100.0100, L300.3900, L300.4310, L500.4050 ####[facility] [address] [place], [address] Albumin/Globulin [Mass ratio] 1.3 {ratio} Normal 0.9-2.4 [facility] Comment on above: Performed By: #### L 100.0100, L300.3900, L300.4310, L500.4050 ####[facility] [address] [place], [address] ALK P 54 U/L Normal 45-117 [facility] Comment on above: Performed By: #### L 100.0100, L300.3900, L300.4310, L500.4050 ####[facility] [address] [place], [address] ALT [Catalytic activity/Vol] 34 U/L Normal 16-61 [facility] Comment on above: Performed By: #### L 100.0100, L300.3900, L300.4310, L500.4050 ####[facility] [address] [place], [address] AST [Catalytic activity/Vol] 22 U/L Normal 15-37 [facility] Comment on above: Performed By: #### L 100.0100, L300.3900, L300.4310, L500.4050 ####[facility] [address] [place], [address] Bilirubin [Mass/Vol] 0.40 mg/dL Normal 0.20-1.00 [facility] Comment on above: Result Comment: For patients on eltrombopag therapy, use of Dimension Panther Burn TBIL is not recommended. Performed By: #### L 100.0100, L300.3900, L300.4310, L500.4050 ####[facility] [address] [place], [address] BUN/CRE 9.8 RATIO Low 10-20 [facility] Comment on above: Performed By: #### L 100.0100, L300.3900, L300.4310, L500.4050 ####[facility] [address] [place], [address] CA,Total 9.4 mg/dL Normal 8.5-10.1 [facility] Comment on above: Performed By: #### L 100.0100, L300.3900, L300.4310, L500.4050 ####[facility] [address] [place], [address] Chloride [Moles/Vol] 105 mmol/L Normal 98-107 [facility] Comment on above: Performed By: #### L 100.0100, L300.3900, L300.4310, L500.4050 ####[facility] [address] [place], [address] CO2 [Moles/Vol] 28.0 mmol/L Normal 21.0-32.0 [facility] Comment on above: Performed By: #### L 100.0100, L300.3900, L300.4310, L500.4050 ####[facility] [address] [place], [address] Creatinine [Mass/Vol] 1.22 mg/dL Normal 0.70-1.30 [facility] Comment on above: Result Comment: The validity of the calculated GFR GFRAA in patients over 70 years has not been determined. Clinical correlation is essential. Performed By: #### L 100.0100, L300.3900, L300.4310, L500.4050 ####[facility] [address] [place], [address] ECRCL 88.95 ml/min Normal [facility] Comment on above: Performed By: #### L 100.0100, L300.3900, L300.4310, L500.4050 ####[facility] [address] [place], [address] EST GFR - AA 86 mL/min Normal >60 [facility] Comment on above: Result Comment: Afri can [place] Citizen GFR Calc Performed By: #### L 100.0100, L300.3900, L300.4310, L500.4050 ####[facility] [address] [place], [address] GAP 6 Normal 5-15 [facility] Comment on above: Performed By: #### L 100.0100, L300.3900, L300.4310, L500.4050 ####[facility] [address] [place], [address] GFR/1.73 sq M.predicted among non-blacks MDRD (S/P/Bld) [Vol rate/Area] 71 mL/min/{1.73_m2} Normal >60 [facility] Comment on above: Result Comment: Non- GFR Calc Performed By: #### L 100.0100, L300.3900, L300.4310, L500.4050 ####[facility] [address] [place], [address] Globulin (S) [Mass/Vol] 3.2 g/dL Normal 2.2-4.2 [facility] Comment on above: Performed By: #### L 100.0100, L300.3900, L300.4310, L500.4050 ####[facility] [address] [place], [address] Glucose [Mass/Vol] 100 mg/dL Normal 74-106 [facility] Comment on above: Result Comment: Fast ing Glucose result from 100 to 125 mg/dL suggests IMPAIRED HOMEOSTASIS per A.D.A. criteria. Performed By: #### L 100.0100, L300.3900, L300.4310, L500.4050 ####[facility] [address] [place], [address] Potassium [Moles/Vol] 3.8 mmol/L Normal 3.5-5.1 [facility] Comment on above: Performed By: #### L 100.0100, L300.3900, L300.4310, L500.4050 ####[facility] [address] [place], [address] Sodium [Moles/Vol] 139 mmol/L Normal 136-145 [facility] Comment on above: Performed By: #### L 100.0100, L300.3900, L300.4310, L500.4050 ####[facility] [address] [place], [address] T PROT 7.3 g/dL Normal 6.4-8.2 [facility] Comment on above: Performed By: #### L 100.0100, L300.3900, L300.4310, L500.4050 ####[facility] [address] [place], [address] Urea nitrogen [Mass/Vol] 12 mg/dL Normal 7-18 [facility] Comment on above: Performed By: #### L 100.0100, L300.3900, L300.4310, L500.4050 ####[facility] [address] [place], [address] Emergency Department Summary on 03-24-2024 Emergency Department Summary [facility] Medical Records Department [address] [place] [address] Emergency Department Summary 03/24/24 MR#: [id number] Acct: [id number] Name: BARBERMARIAN GEORGE Rep #: [id number] : 1985 38 From: Edilson Huddleston DO PCP: Dr. Saroj Michel DO Status:DEP ER Location: ED HPI HPI - GI History of Present Illness Chief Complaint: Other, Pain/Inj Informant: patient Abdominal Pain/Flank Pain Onset: Weeks Context: Gradual Onset Timing: Continuous Quality: Burning and Sharp Location: - (Perirectal) Worsened by: Nothing Relieved by: Nothing Nausea/Vomiting/Emesis GI Symptom: Negative for Nausea or Vomiting Diarrhea/Melena/Hematoc hezia GI Symptom: Negative for Diarrhea, Melena or Hematochezia Associated Symptoms Associated Symptoms: Negative for Dysuria, Frequency or Hematuria Narrative Narrative: Patient presents with rectal pain that has been getting worse over the past few weeks. Patient was scheduled for a procedure today for Botox injection. Patient states that his procedure was canceled. Patient states that he was told to come to the emergency department in order to expedite rescheduling. Patient denies any new symptoms. Patient denies any fevers or chills. Patient states he had a recent CT scan which did not show any abscess or acute abnormality. [facility] Medical History Wears glasses Wears contact lenses Kidney stones Migraine headache Injury of head and neck Gastric reflux Chewing tobacco dependence Asthma History of stress test Hemorrhoids Traumatic brain injury Left ankle instability Hypercholesteremia Vasectomy evaluation ADHD Tobacco use GERD (gastroesophageal reflux disease) Lab test negative for COVID-19 virus Home Medications ???Medication ???Instructions ???Recorded ???Last Taken ???Type sumatriptan succinate 100 mg 100 mg PO DAILY PRN MIGRAINE 06/02/17 Unknown History tablet (Imitrex) rabeprazole 20 mg tablet,delayed 20 mg PO DAILY GERD 30 days #30 05/07/22 12/10/23 Rx release (AcipHex) tabs dextroamphetamine-amphe tamine 20 20 mg PO DAILY ADHD 12/10/23 12/10/23 History mg tablet (Adderall) multivitamin (Daily Multi-Vitamin 1 tab PO DAILY HEALTH MAINTENANCE 12/10/23 12/10/23 History tablet) budesonide 3 mg 6 mg (2 x 3 mg) PO DAILY CROHNS 12/18/23 Unknown Rx capsule,delayed,extende d release DISEASE #60 ea Diltiazem 10mg/Lidocaine 50mg 1 supp AK BID 21 days #30 supp 03/23/24 Unknown Rx Suppository 30 supp suppository Hydrocortisone 2.5% / Lidocaine 5% #1 ea 03/23/24 Unknown Rx ointment (cmpd) (Hydrocortisone 2.5%/lidocaine 5% ointment (compound)) oxycodone 5 mg tablet 5 mg PO TID PRN PAIN 10 days #30 03/23/24 Unknown Rx tabs lisdexamfetamine 70 mg capsule 70 mg PO DAILY ADHD 03/24/24 Unknown History (Vyvanse) Allergy/AdvReac Type Severity Reaction Status Date / Time amoxicillin Allergy Hives Verified 03/24/24 11:02 Sulfa (Sulfonamide Allergy Hives Verified 03/24/24 11:02 Antibiotics) sulfamethoxazole (From Allergy Hives Verified 03/24/24 11:02 Septra) trimethoprim (From ) Allergy Hives Verified 03/24/24 11:02 Surgical History Hx of vasectomy Social History Smoking Status: Never smoker ROS ROS ED Constitutional Constitutional ED: Denies chills or fever(s) Eyes Eyes: Denies blurry vision or change in vision ENT ENT ED: Denies rhinorrhea or sore throat Cardiovascular Cardiovascular: Denies chest pain or palpitations Respiratory/Chest Respiratory/Chest: Denies cough or dyspnea Gastrointestinal Gastrointestinal: Denies nausea or vomiting Genitourinary Genitourinary ED: Denies dysuria or hematuria Musculoskeletal Musculoskeletal: Denies back pain or neck pain Integumentary Denies abscess or rash Neurologic Neurologic: Denies headache(s) or weakness Allergic/Immunologic Allergic/Immunologic ED: Denies mouth swelling or urticaria EXAM Physical Exam Const Vital Signs: 03/24/24 11:02 03/24/24 12:19 03/24/24 13:02 Temperature 97.1 F L Temperature Source Temporal Pulse Rate 72 Respiratory Rate 18 14 Respiratory Effort Normal Respiratory Pattern Normal Blood Pressure 138/93 H Blood Pressure Mean 108 Pulse Ox 99 Oxygen Delivery Method Room Air Room Air 03/24/24 14:51 03/24/24 15:00 Temperature 97.1 F L Temperature Source Pulse Rate 72 Respiratory Rate 14 16 Respiratory Effort Respiratory Pattern Blood Pressure 138/93 H Blood Pressure Mean 108 Pulse Ox 99 Oxygen Delivery Method Room Air Positive well nourished and well developed General Appearance ED: (more content not included)... Normal [facility] Partial Thromboplast Timeon 03-24-2024 aPTT Coag (Bld) [Time] 29.2 s Normal 24.1-36.2 [facility] Comment on above: Performed By: #### L 100.0100, L300.3900, L300.4310, L500.4050 ####[facility] [address] [place], [address] Prothrombin Time w/INRon INR Coag (PPP) [Relative time] 0.9 {INR} Normal [facility] Comment on above: Performed By: #### L 100.0100, L300.3900, L300.4310, L500.4050 ####[facility] [address] [place], [address] PT Coag (PPP) [Time] 12.0 s Normal 11.7-14.9 [facility] Comment on above: Performed By: #### L 100.0100, L300.3900, L300.4310, L500.4050 ####[facility] [address] [place], [address] Abdomen/Pelvis WITH Contrast on 03-23-2024 Abdomen/Pelvis WITH Contrast [facility] [address] [place] [address] Abdomen/Pelvis WITH Contrast MR#: [id number] Acct: [id number] Name: MARIAN BARBER Rep #: [id number] : 1985 M 38 From: Stephen Will MD PCP: Dr. Saroj Michel, DO Status: REG CLI Study: Abdomen/Pelvis WITH Contrast Date of Exam: Exam# [id number] Ordering Dr: [place] [id number] INDICATION: Intermittent rectal pain for several weeks EXAMINATION: CT ABDOMEN AND PELVIS WITH CONTRAST - CT Abdomen And Pelvis W/ Contrast Injection TECHNIQUE: Helically acquired images were obtained of the abdomen and pelvis following IV contrast. A radiation dose optimization technique was used for this scan. IV Contrast dosage and agent: 100 cc [id number] Oral contrast: Yes. COMPARISON: 04/25/2022 FINDINGS: LOWER CHEST: Bibasilar dependent changes. No cardiomegaly or pericardial effusion. LIVER: No concerning focal mass. GALLBLADDER AND BILIARY TREE: No calcified gallstones. No gallbladder distension or wall edema. No intra- or extrahepatic biliary ductal dilation. PANCREAS: No focal cystic or solid mass. SPLEEN: Normal size without focal cystic or solid mass. ADRENAL GLANDS: No nodules. KIDNEYS AND URETERS: Nonobstructing right renal calculi. No hydronephrosis. PERITONEUM: No ascites or free air. BOWEL: Normal appendix. No stomach or bowel distension. Colonic diverticulosis without focal inflammatory bowel wall changes. No perirectal inflammation or abscess formation. LYMPH NODES: No enlarged mesenteric or retroperitoneal lymph nodes. VESSELS: Aorta is non-dilated. URINARY BLADDER: Unremarkable. REPRODUCTIVE ORGANS: No pelvic masses. ABDOMINAL WALL: Fat-containing umbilical and right inguinal hernia. BONES: No acute bony abnormality. CT/Abdomen/Pelvis WITH Contrast IMPRESSION: No acute findings in the abdomen or pelvis. No demonstrated perirectal abnormality. Electronically Signed: Stephen Will MD at 19:14 EDT , CC: Dr. Saroj Michel DO; WILMER Acosta Vocational Nursing Instructor: Signed Normal [facility] CBC W/Diff, Automatedon 10-2 Absolute Lymph 2.21 X10 3/uL Normal 0.83-4.51 [facility] Comment on above: Performed By: #### L 100.0500, L500.2500 #### [facility] [address] [place], [address] Absolute Neut 4.7 X10 3/uL Normal 2.0-7.7 [facility] Comment on above: Performed By: #### L 100.0500, L500.2500 #### [facility] [address] [place], [address] Basophils/100 WBC (Bld) 1.0 % Normal 0-1 [facility] Comment on above: Performed By: #### L 100.0500, L500.2500 #### [facility] [address] [place], [address] Eosinophils/100 WBC (Bld) 1.3 % Normal 0-5 [facility] Comment on above: Performed By: #### L 100.0500, L500.2500 #### [facility] [address] [place], [address] Erythrocyte distribution width (RBC) [Ratio] 13.3 % Normal 11.6-14.6 [facility] Comment on above: Performed By: #### L 100.0500, L500.2500 #### [facility] [address] [place], [address] Hematocrit (Bld) [Volume fraction] 46.2 % Normal 40-54 [facility] Comment on above: Performed By: #### L 100.0500, L500.2500 #### [facility] [address] [place], [address] Hemoglobin (Bld) [Mass/Vol] 15.3 g/dL Normal 13.0-16.5 [facility] Comment on above: Performed By: #### L 100.0500, L500.2500 #### [facility] [address] [place], [address] IG% 0.300 Normal 0.0-0.9 [facility] Comment on above: Result Comment: IG% - Immature Granulocytes (promyelocytes, myelocytes and metamyelocytes) > 1% indicates that a LEFT SHIFT is Present. Performed By: #### L 100.0500, L500.2500 #### [facility] [address] [place], [address] Lymphocytes/100 WBC (Bld) 28.7 % Normal 19-41 [facility] Comment on above: Performed By: #### L 100.0500, L500.2500 #### [facility] [address] [place], [address] MCH (RBC) [Entitic mass] 28.3 pg Normal 27.0-32.0 [facility] Comment on above: Performed By: #### L 100.0500, L500.2500 #### [facility] [address] [place], [address] MCHC (RBC) [Mass/Vol] 33.1 g/dL Normal 32-36 [facility] Comment on above: Performed By: #### L 100.0500, L500.2500 #### [facility] [address] [place], [address] MCV (RBC) [Entitic vol] 85.6 fL Normal 80-94 [facility] Comment on above: Performed By: #### L 100.0500, L500.2500 #### [facility] [address] [place], [address] Monocytes/100 WBC (Bld) 7.7 % Normal 0-10 [facility] Comment on above: Performed By: #### L 100.0500, L500.2500 #### [facility] [address] [place], [address] Neutrophils/100 WBC (Bld) 61.0 % Normal 47-70 [facility] Comment on above: Performed By: #### L 100.0500, L500.2500 #### [facility] [address] [place], [address] Nucleated RBC (Bld) [#/Vol] 0 10*3/uL Normal 0-5 [facility] Comment on above: Performed By: #### L 100.0500, L500.2500 #### [facility] [address] [place], [address] Platelet mean volume (Bld) [Entitic vol] 9.9 fL Normal 6.2-12.0 [facility] Comment on above: Performed By: #### L 100.0500, L500.2500 #### [facility] [address] [place], [address] Platelets (Bld) [#/Vol] 319 10*3/uL Normal 150-450 [facility] Comment on above: Performed By: #### L 100.0500, L500.2500 #### [facility] [address] [place], [address] RBC (Bld) [#/Vol] 5.40 10*6/uL Normal 4.6-6.2 [facility] Comment on above: Performed By: #### L 100.0500, L500.2500 #### [facility] [address] [place], [address] RDW SD 41.2 fl Normal 35.1-43.9 [facility] Comment on above: Performed By: #### L 100.0500, L500.2500 #### [facility] [address] [place], [address] WBC (Bld) [#/Vol] 7.7 10*3/uL Normal 4.4-11.0 [facility] Comment on above: Performed By: #### L 100.0500, L500.2500 #### [facility] [address] [place], [address] CRPon 10-28-2024 C-REACTIVE PROT < 2.90 Normal 0.0-3.0 [facility] Comment on above: Result Comment: C-Re active Protein (CRP) provides useful information for the diagnosis, therapy and monitoring of inflammatory processes and associated diseases. For the evaluation of Relative Risk for Cardiovascular Disease, a High Sensitivity CRP (HSCRP) should be ordered. Performed By: #### L 100.0500, L500.2500 #### [facility] [address] [place], [place], [address] Erythrocyte Sed Rateon 03-23 SED RATE 4 mm/hr Normal 0-20 [facility] Comment on above: Performed By: #### L 100.0500, L500.2500 #### [facility] [address] [place], [place], [address] Gastroenterology Visit Repor ton 03-23-2024 Gastroenterology Visit Report [facility]enterology [address] 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: No Accompanied by: Is patient in pain?: Yes Allergies amoxicillin Allergy (Verified 12/11/23 07:03) Hives Sulfa (Sulfonamide Antibiotics) Allergy (Verified 12/11/23 07:03) Hives sulfamethoxazole (From Septra) Allergy (Verified 12/11/23 07:03) Hives trimethoprim (From Septra) Allergy (Verified 12/11/23 07:03) Hives Medications ???Medication ???Instructions ???Recorded ???Confirmed ???Type sumatriptan succinate 100 mg 100 mg PO .X1 PRN 06/02/17 03/23/24 History tablet (Imitrex) rabeprazole 20 mg tablet,delayed 20 mg PO DAILY 30 days #30 tabs 05/07/22 03/23/24 Rx release (AcipHex) lisdexamfetamine 50 mg capsule 70 mg PO DAILY 06/25/23 03/23/24 History dextroamphetamine-amphe tamine 20 20 mg PO DAILY 12/10/23 03/23/24 History mg tablet (Adderall) multivitamin (Daily Multi-Vitamin 1 tab PO DAILY 12/10/23 03/23/24 History tablet) budesonide 3 mg 6 mg (2 x 3 mg) PO DAILY #60 ea 12/18/23 03/23/24 Rx capsule,delayed,extende d release esomeprazole magnesium 20 mg 20 mg PO DAILY #30 caps 12/18/23 03/23/24 Rx capsule,delayed release Diltiazem 10mg/Lidocaine 50mg 1 supp AK BID 21 days #30 supp 03/23/24 Rx Suppository 30 supp suppository Hydrocortisone 2.5% / Lidocaine 5% #1 ea 03/23/24 Rx ointment (cmpd) (Hydrocortisone 2.5%/lidocaine 5% ointment (compound)) oxycodone 5 mg tablet 5 mg PO TID PRN pain 10 days #30 03/23/24 Rx tabs Have you fallen in the past year?: No Nurse's Note: No issues with bowels or anything else. [facility] Medical History Wears glasses Wears contact lenses Kidney stones Migraine headache Injury of head and neck Gastric reflux Chewing tobacco dependence Asthma History of stress test Hemorrhoids Traumatic brain injury Left ankle instability Hypercholesteremia Vasectomy evaluation ADHD Tobacco use GERD (gastroesophageal reflux disease) Lab test negative for COVID-19 virus Surgical History Hx of vasectomy Social History Smoking Status: Current every day smoker tobacco type: smokeless tobacco HPI HPI Chief Complaint: rectal pain Details: MARIAN BARBER, is a 38 M who presents to the office today for f/u. OV 6.14.24 pt reports he started noticing blood in his stool about a month ago; there were flecks of black in the stool and the water in the toilet was bright red, is not as bad as it had been, but his stool sample on 10.30.23 came back positive for blood. Pt reports that he possibly has hemorrhoids. Pt reports that he has started taking a fiber supplement and a stool softener since the blood in the stool began. Continues with Rabeprazole. Colonoscopy 12.11.23; Diverticulosis in the recto-sigmoid colon, in the sigmoid colon, in the descending colon and at the splenic flexure. - Congested mucosa in the terminal ileum. Biopsied. EGD 12.11.23; - Esophageal mucosal variant. Biopsied. 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 Biopsied. - Small hiatal hernia. - Erythematous duodenopathy. Biopsied. OV 03.23.24 pt is here today for rectal pain. Pt has been having his pain since August but it has improved up until a a few days ago. He has been having half hour long episodes of stabbing rectal pain. This will wake him up from his sleep. 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 He has no other GI symptoms. He denies fever or night sweats. ROS Const Constitutional: No fatigue, fever(s) or weight change ENT ENT: No difficulty swallowing Gastro GI: No abdominal pain, belching, bloating, change in bowel habits, change in stool character, coffee ground emesis, constipation, cramping, diarrhea, heartburn, difficulty swallowing, feeling full early, excessive flatus, incontinent of stools, Vomiting blood/hematemesis, Blood in stool, loose stools, Black,tarry stools, nausea/dyspepsia, pain with swallowing, vomiting or other Musc Musculoskeletal: No joint pain Skin Skin: No yellowing of the eye or itchy eyes Psych Psychiatric: No anxiety and No depression Endo Endocrine: No fatigue or weight change Aller/Imm Allergy/Immunologic: No itchy eyes Shaka/Lymp Hematologic/Lymphatic: No easy bleeding or easy bruising Exam (more content not included)... Normal [facility] Lactic Acidon 03-23-2024 Lactate [Moles/Vol] 1.1 mmol/L Normal 0.4-1.9 [facility] Comment on above: Order Comment: N Performed By: #### L 100.0500, L500.2500 #### [facility] [address] [place], [address] CBC W/Diff, Automatedon 10- Absolute Lymph 2.81 X10 3/uL Normal 0.83-4.51 [facility] Comment on above: Performed By: #### M 100.7900, L100.0100, L500.4100, L501.9910, L400.2010, L500.4050 ####[facility] [address] [place], [address] Absolute Neut 3.9 X10 3/uL Normal 2.0-7.7 [facility] Comment on above: Performed By: #### M 100.7900, L100.0100, L500.4100, L501.9910, L400.2010, L500.4050 ####[facility] [address] [place], [address] Basophils/100 WBC (Bld) 0.9 % Normal 0-1 [facility] Comment on above: Performed By: #### M 100.7900, L100.0100, L500.4100, L501.9910, L400.2010, L500.4050 ####[facility] [address] [place], [address] Eosinophils/100 WBC (Bld) 2.0 % Normal 0-5 [facility] Comment on above: Performed By: #### M 100.7900, L100.0100, L500.4100, L501.9910, L400.2010, L500.4050 ####[facility] [address] [place], [address] Erythrocyte distribution width (RBC) [Ratio] 13.4 % Normal 11.6-14.6 [facility] Comment on above: Performed By: #### M 100.7900, L100.0100, L500.4100, L501.9910, L4.2010, L500.4050 ####[facility] [address] [place], [address] Hematocrit (Bld) [Volume fraction] 46.7 % Normal 40-54 [facility] Comment on above: Performed By: #### M 100.7900, L100.0100, L500.4100, L501.9910, L4.2010, L500.4050 ####[facility] [address] [place], [address] Hemoglobin (Bld) [Mass/Vol] 15.6 g/dL Normal 13.0-16.5 [facility] Comment on above: Performed By: #### M 100.7900, L100.0100, L500.4100, L501.9910, L4, L500.4050 ####[facility] [address] [place], [address] IG% 0.500 Normal 0.0-0.9 [facility] Comment on above: Result Comment: IG% - Immature Granulocytes (promyelocytes, myelocytes and metamyelocytes) > 1% indicates that a LEFT SHIFT is Present. Performed By: #### M 100.7900, L100.0100, L500.4100, L501.9910, L4.2010, L500.4050 ####[facility] [address] [place], [address] Lymphocytes/100 WBC (Bld) 36.7 % Normal 19-41 [facility] Comment on above: Performed By: #### M 100.7900, L100.0100, L500.4100, L501.9910, L400.2010, L500.4050 ####[facility] [address] [place], [address] MCH (RBC) [Entitic mass] 28.8 pg Normal 27.0-32.0 [facility] Comment on above: Performed By: #### M 100.7900, L100.0100, L500.4100, L501.9910, L400.2010, L500.4050 ####[facility] [address] [place], [address] MCHC (RBC) [Mass/Vol] 33.4 g/dL Normal 32-36 [facility] Comment on above: Performed By: #### M 100.7900, L100.0100, L500.4100, L501.9910, L400.2010, L500.4050 ####[facility] [address] [place], [address] MCV (RBC) [Entitic vol] 86.3 fL Normal 80-94 [facility] Comment on above: Performed By: #### M 100.7900, L100.0100, L500.4100, L501.9910, L400.2010, L500.4050 ####[facility] [address] [place], [address] Monocytes/100 WBC (Bld) 8.4 % Normal 0-10 [facility] Comment on above: Performed By: #### M 100.7900, L100.0100, L500.4100, L501.9910, L400.2010, L500.4050 ####[facility] [address] [place], [address] Neutrophils/100 WBC (Bld) 51.5 % Normal 47-70 [facility] Comment on above: Performed By: #### M 100.7900, L100.0100, L500.4100, L501.9910, L400.2010, L500.4050 ####[facility] [address] [place], [address] Nucleated RBC (Bld) [#/Vol] 0 10*3/uL Normal 0-5 [facility] Comment on above: Performed By: #### M 100.7900, L100.0100, L500.4100, L501.9910, L400.2010, L500.4050 ####[facility] [address] [place], [address] Platelet mean volume (Bld) [Entitic vol] 10.5 fL Normal 6.2-12.0 [facility] Comment on above: Performed By: #### M 100.7900, L100.0100, L500.4100, L501.9910, L400.2010, L500.4050 ####[facility] [address] [place], [address] Platelets (Bld) [#/Vol] 308 10*3/uL Normal 150-450 [facility] Comment on above: Performed By: #### M 100.7900, L100.0100, L500.4100, L501.9910, L400.2010, L500.4050 ####[facility] [address] [place], [address] RBC (Bld) [#/Vol] 5.41 10*6/uL Normal 4.6-6.2 [facility] Comment on above: Performed By: #### M 100.7900, L100.0100, L500.4100, L501.9910, L400.2010, L500.4050 ####[facility] [address] [place], [address] RDW SD 42.1 fl Normal 35.1-43.9 [facility] Comment on above: Performed By: #### M 100.7900, L100.0100, L500.4100, L501.9910, L400.2010, L500.4050 ####[facility] [address] [place], [address] WBC (Bld) [#/Vol] 7.7 10*3/uL Normal 4.4-11.0 [facility] Comment on above: Performed By: #### M 100.7900, L100.0100, L500.4100, L501.9910, L400.2010, L500.4050 ####[facility] [address] [place], [address] Comprehensive Metabolic [facility] ilon 03-18-2024 Albumin [Mass/Vol] 4.2 g/dL Normal 3.2-5.0 [facility] Comment on above: Performed By: #### M 100.7900, L100.0100, L500.4100, L501.9910, L400.2010, L500.4050 ####[facility] [address] [place], [address] Albumin/Globulin [Mass ratio] 1.2 {ratio} Normal 0.9-2.4 [facility] Comment on above: Performed By: #### M 100.7900, L100.0100, L500.4100, L501.9910, L400.2010, L500.4050 ####[facility] [address] [place], [address] ALK P 65 U/L Normal 45-117 [facility] Comment on above: Performed By: #### M 100.7900, L100.0100, L500.4100, L501.9910, L400.2010, L500.4050 ####[facility] [address] [place], [address] ALT [Catalytic activity/Vol] 34 U/L Normal 16-61 [facility] Comment on above: Performed By: #### M 100.7900, L100.0100, L500.4100, L501.9910, L400.2010, L500.4050 ####[facility] [address] [place], [address] AST [Catalytic activity/Vol] 26 U/L Normal 15-37 [facility] Comment on above: Performed By: #### M 100.7900, L100.0100, L500.4100, L501.9910, L4.2010, L500.4050 ####[facility] [address] [place], [address] Bilirubin [Mass/Vol] 0.40 mg/dL Normal 0.20-1.00 [facility] Comment on above: Result Comment: For patients on eltrombopag therapy, use of Dimension Panther Burn TBIL is not recommended. Performed By: #### M 100.7900, L100.0100, L500.4100, L501.9910, L4.2010, L500.4050 ####[facility] [address] [place], [address] BUN/CRE 13.2 RATIO Normal 10-20 [facility] Comment on above: Performed By: #### M 100.7900, L100.0100, L500.4100, L501.9910, L4.2010, L500.4050 ####[facility] [address] [place], [address] CA,Total 10.2 mg/dL High 8.5-10.1 [facility] Comment on above: Performed By: #### M 100.7900, L100.0100, L500.4100, L501.9910, L4.2010, L500.4050 ####[facility] [address] [place], [address] Chloride [Moles/Vol] 105 mmol/L Normal 98-107 [facility] Comment on above: Performed By: #### M 100.7900, L100.0100, L500.4100, L501.9910, L400.2010, L500.4050 ####[facility] [address] [place], [address] CO2 [Moles/Vol] 26.0 mmol/L Normal 21.0-32.0 [facility] Comment on above: Performed By: #### M 100.7900, L100.0100, L500.4100, L501.9910, L400.2010, L500.4050 ####[facility] [address] [place], [address] Creatinine [Mass/Vol] 1.21 mg/dL Normal 0.70-1.30 [facility] Comment on above: Result Comment: The validity of the calculated GFR GFRAA in patients over 70 years has not been determined. Clinical correlation is essential. Performed By: #### M 100.7900, L100.0100, L500.4100, L501.9910, L400.2010, L500.4050 ####[facility] [address] [place], [address] EST GFR - AA 87 mL/min Normal >60 [facility] Comment on above: Result Comment: Afri can [place] GFR Calc Performed By: #### M 100.7900, L100.0100, L500.4100, L501.9910, L400.2010, L500.4050 ####[facility] [address] [place], [address] GAP 6 Normal 5-15 [facility] Comment on above: Performed By: #### M 100.7900, L100.0100, L500.4100, L501.9910, L400.2010, L500.4050 ####[facility] [address] [place], [address] GFR/1.73 sq M.predicted among non-blacks MDRD (S/P/Bld) [Vol rate/Area] 72 mL/min/{1.73_m2} Normal >60 [facility] Comment on above: Result Comment: Non- GFR Calc Performed By: #### M 100.7900, L100.0100, L500.4100, L501.9910, L400.2010, L500.4050 ####[facility] [address] [place], [address] Globulin (S) [Mass/Vol] 3.5 g/dL Normal 2.2-4.2 [facility] Comment on above: Performed By: #### M 100.7900, L100.0100, L500.4100, L501.9910, L4.2010, L500.4050 ####[facility] [address] [place], [address] Glucose [Mass/Vol] 95 mg/dL Normal 74-106 [facility] Comment on above: Performed By: #### M 100.7900, L100.0100, L500.4100, L501.9910, L4, L500.4050 ####[facility] [address] [place], [address] Potassium [Moles/Vol] 4.2 mmol/L Normal 3.5-5.1 [facility] Comment on above: Performed By: #### M 100.7900, L100.0100, L500.4100, L501.9910, L400.2010, L500.4050 ####[facility] [address] [place], [address] Sodium [Moles/Vol] 137 mmol/L Normal 136-145 [facility] Comment on above: Performed By: #### M 100.7900, L100.0100, L500.4100, L501.9910, L400.2010, L500.4050 ####[facility] [address] [place], [address] T PROT 7.7 g/dL Normal 6.4-8.2 [facility] Comment on above: Performed By: #### M 100.7900, L100.0100, L500.4100, L501.9910, L400.2010, L500.4050 ####[facility] [address] [place], [address] Urea nitrogen [Mass/Vol] 16 mg/dL Normal 7-18 [facility] Comment on above: Performed By: #### M 100.7900, L100.0100, L500.4100, L501.9910, L4.2010, L500.4050 ####[facility] [address] [place], [address] Lipid Profileon 03-18-2024 Cholesterol [Mass/Vol] 242 mg/dL High 200 [facility] Comment on above: Result Comment: <200 mg/dL Desirable 200-240 mg/dL Borderline >240 mg/dL High Risk Performed By: #### M 100.7900, L100.0100, L500.4100, L501.9910, L4, L500.4050 ####[facility] [address] [place], [address] Cholesterol in HDL [Mass/Vol] 44 mg/dL Normal [facility] Comment on above: Result Comment: The drugs N-Acetylcysteine and Metamizole may falsely depress this assay. Reference Range HDL <40 mg/dL Low HDL Cholesterol HDL >or= 60 mg/dL High HDL Cholesterol Performed By: #### M 100.7900, L100.0100, L500.4100, L501.9910, L4, L500.4050 ####[facility] [address] [place], [address] Cholesterol in LDL [Mass/Vol] 149 mg/dL High 0-130 [facility] Comment on above: Performed By: #### M 100.7900, L100.0100, L500.4100, L501.9910, L400.2010, L500.4050 ####[facility] [address] [place], [address] Cholesterol in VLDL [Mass/Vol] 49 mg/dL High 5-40 [facility] Comment on above: Performed By: #### M 100.7900, L100.0100, L500.4100, L501.9910, L4.2010, L500.4050 ####[facility] [address] [place], [address] Triglyceride [Mass/Vol] 246 mg/dL High [facility] Comment on above: Result Comment: The drugs N-Acetylcysteine and Metamizole may falsely depress this assay. Serum Triglycerides Reference Interval Normal <150 mg/dL Borderline high 150 - 199 mg/dL High 200 - 499 mg/dL Very High > or = 500 mg/dL Performed By: #### M 100.7900, L100.0100, L500.4100, L501.9910, L4.2010, L500.4050 ####[facility] [address] [place], [address] PSA,Total - Annual Screenon 03-18-2024 PSA,TOT SCREEN 0.77 ng/mL Normal 0.00-4.00 [facility] Comment on above: Result Comment: This test was performed using the TPSA assay method for the [employer] chemistry system. Values obtained with different assay methods cannot be used interchangably. When changing PSA assays in the course of monitoring a patient, additional sequential testing should be carried out to confirm baseline values. Performed By: #### M 100.7900, L100.0100, L500.4100, L501.9910, L4.2010, L500.4050 ####[facility] [address] [place], [address] Urinalysis, Routine (Dipstic k)on 03-18-2024 BILIRUBIN URINE Negative Normal Negative [facility] Comment on above: Order Comment: Urine , Random Performed By: #### M 100.7900, L100.0100, L500.4100, L501.9910, L400.2010, L500.4050 ####[facility] [address] [place], [address] Clarity (U) Clear Normal Clear [facility] Comment on above: Order Comment: Urine , Random Performed By: #### M 100.7900, L100.0100, L500.4100, L501.9910, L400.2011, L500.4050 ####[facility] [address] [place], [address] Color (U) Yellow Normal Yellow [facility] Comment on above: Order Comment: Urine , Random Performed By: #### M 100.7900, L100.0100, L500.4100, L501.9910, L400.2010, L500.4050 ####[facility] [address] [place], [address] GLUCOSE, UR Normal Normal Normal [facility] Comment on above: Order Comment: Urine , Random Performed By: #### M 100.7900, L100.0100, L500.4100, L501.9910, L400.2010, L500.4050 ####[facility] [address] [place], [address] KETONE UR Negative Normal Negative [facility] Comment on above: Order Comment: Urine , Random Performed By: #### M 100.7900, L100.0100, L500.4100, L501.9910, L400.2010, L500.4050 ####[facility] [address] [place], [address] LEUK ESTERASE Negative Normal Negative [facility] Comment on above: Order Comment: Urine , Random Performed By: #### M 100.7900, L100.0100, L500.4100, L501.9910, L400.2011, L500.4050 ####[facility] [address] [place], [address] Nitrite Ql (U) Negative Normal Negative [facility] Comment on above: Order Comment: Urine , Random Performed By: #### M 100.7900, L100.0100, L500.4100, L501.9910, L400.2011, L500.4050 ####[facility] [address] [place], [address] OCCULT BLOOD-UR Negative Normal Negative [facility] Comment on above: Order Comment: Urine , Random Performed By: #### M 100.7900, L100.0100, L500.4100, L501.9910, L400.2010, L500.4050 ####[facility] [address] [place], [address] pH UR 7.0 Normal 5.0 - 8.0 [facility] Comment on above: Order Comment: Urine , Random Performed By: #### M 100.7900, L100.0100, L500.4100, L501.9910, L400.2010, L500.4050 ####[facility] [address] [place], [address] PROT DIPSTX Negative Normal Negative [facility] Comment on above: Order Comment: Urine , Random Performed By: #### M 100.7900, L100.0100, L500.4100, L501.9910, L400.2010, L500.4050 ####[facility] [address] [place], [address] SP.GR. DIPSTX 1.010 Normal 1.002-1.030 [facility] Comment on above: Order Comment: Urine , Random Performed By: #### M 100.7900, L100.0100, L500.4100, L501.9910, L400.2010, L500.4050 ####[facility] [address] [place], [address] UROBILI Normal Normal Normal [facility] Comment on above: Order Comment: Urine , Random Performed By: #### M 100.7900, L100.0100, L500.4100, L501.9910, L400.2010, L500.4050 ####[facility] [address] [place], [address] 12 Lead EKG performed by [facility] on 03-17-2024 12 Lead EKG performed by [facility] [address] [place] [address] 12 Lead EKG performed by [facility] 03/17/24 1309 MR#: [id number] Acct: [id number] Name: MARIAN BARBER Rep #: [id number] : 1985 38 From: Blu GUILLEN Attending Dr: WILMER Caal Status: DEP AM B Ordering Dr: Blu Langston Date: 03/17/24 Location: [facility].NOW Sex: M C Admitted: [facility]/12 Lead EKG performed by [facility] Sinus Rhythm WITHIN NORMAL LIMITS 03/18/24 1327 Date Blu GUILLEN CC: Dr. Saroj Michel, Date Dictated: 03/17/241308 Date Transcribed: 03/17/241308 Vocational Nursing Instructor: MALGORZATA Signed Normal [facility] Stool Occult Blood iFOBon STOB Positive Normal [facility] Comment on above: Performed By: #### M 100.7900, L100.0100, L500.4100, L501.9910, L400.2010, L500.4050 ####[facility] [address] [place], [address] Echo Completeon 12-31-2023 Echo Complete [facility] [address] [place] [address] Echo Complete 12/31/23 1007 MR#: [id number] Acct: [id number] Name: MARIAN BARBER Rep #: [id number] : 1985 38 From: Beau Young MD Attending Dr: Dr. Saroj Michel, Status: R EG CLI Ordering Dr: Saroj Michel DO Date: 12/31/23 Location: [facility] Sex: M C Admitted: Reason For Study: Palpitations Procedure This was a 2D Doppler, Color Flow transthoracic echocardiogram. Exam performed in department. Left Ventricle Normal LV size. The estimated ejection fraction is 65 %. No evidence for diastolic dysfunction. No regional wall motion abnormalities noted. Right Ventricle Normal RV size. Normal systolic function. Atria The left and right atria are normal. No doppler evidence for ASD. Mitral Valve There is no mitral valve stenosis. Trivial mitral valve insufficiency. Tricuspid Valve There is no tricuspid stenosis. Trivial tricuspid valve insufficiency. Pulmonary artery systolic pressure is 25 mmHg. Aortic Valve Trisinus/trileaflet aortic valve. There is no aortic stenosis. No aortic valve insufficiency. Pulmonic Valve There is no pulmonic valvular stenosis. No pulmonic valve insufficiency. Great Vessels Normal aortic root. Pericardium/Pleural No pericardial effusion. MMode/2D Measurements Calculations LVIDd: 4.8 cm IVSd: 1.1 cm Ao root diam: 2.9 cm LVIDs: 3.1 cm LVPWd: 1.0 cm RVDd: 3.5 cm FS: 35.6 % LAV(MOD-bp): 44.0 ml LVAd ap4: 26.7 cm2 SV(MOD-sp4): 44.0 ml LAV(MOD-bp) Indexed: 22.5 ml/m2 LVLd ap4: 7.6 cm LAV(MOD-sp2): 36.2 ml EDV(MOD-sp4): 77.8 ml LAV(MOD-sp4): 42.8 ml EDV(sp4-el): 80.2 ml LVAs ap4: 15.6 cm2 LVLs ap4: 6.7 cm ESV(MOD-sp4): 33.8 ml ESV(sp4-el): 31.0 ml EF(MOD-sp4): 56.6 % EF(sp4-el): 61.3 % SV(sp4-el): 49.1 ml LA A4 area: 17.2 cm2 LA dimension(2D): 3.6 cm RA A4 area: 9.5 cm2 TAPSE: 2.0 cm Time Measurements MV dec time: 0.20 sec Doppler Measurements Calculations MV E max simón: 81.4 cm/sec Lat Peak E' Simón: 12.8 cm/sec Med Peak E' Simón: 7.0 cm/sec MV A max simón: 60.0 cm/sec E/E' lat: 6.4 E/E' med: 11.6 MV E/A: 1.4 Ao V2 max: 129.5 cm/sec LV V1 max: 107.8 cm/sec MV dec slope: 404.7 cm/sec2 Ao max P.7 mmHg LV V1 max P.7 mmHg Ao V2 mean: 102.9 cm/sec LV V1 mean P.5 mmHg Ao mean P.4 mmHg LV V1 mean: 73.9 cm/sec Ao V2 VTI: 25.8 cm LV V1 VTI: 20.7 cm AV (velocity ratio): 0.80 PA V2 max: 129.6 cm/sec PI end-d simón: 112.1 cm/sec TR max simón: 211.9 cm/sec TR max P.0 mmHg ECHO/Echo Complete Interpretation Summary The estimated ejection fraction is 65 %. No evidence for diastolic dysfunction. Trivial mitral valve insufficiency. Ordering Physician: Saroj Michel Referring Physician: Saroj Michel Performed By: Hafsa Reeder, JADEN, RVT 01/01/24 1522 Date Beau Young MD CC: Dr. Saroj Michel DO Date Dictated: 12/31/23 1007 Date Transcribed: 01/01/24 1522 Vocational Nursing Instructor: Signed Normal [facility] Colonoscopy Reporton 024 Colonoscopy Report Medical Records Department [address] [place] [address] Colonoscopy Report MR#: [id number] Acct: [id number] Name: MARIAN BARBER Rep #: [id number] : 1985 38 From: Eagle Aguayo DO PCP: Dr. Saroj Michel DO Status:REG SDC Patient Name: Marian Barber Procedure Date: 12/11/2023 8:44 AM Date of : 1985 Age: 38 Procedure: Colonoscopy Indications: Heme positive stool, Iron deficiency anemia Providers: Eagle Aguayo DO Medicines: Monitored Anesthesia Care Patient Profile: This is a 38 year old male. Refer to note in patient chart for documentation of history and physical. Patient has symptoms of chronic heartburn. Last Colonoscopy: none. The patient's first colonoscopy is today. Complications: No immediate complications. Procedure: Pre-Anesthesia Assessment: - Prior to the procedure, a History and Physical was performed, and patient medications and allergies were reviewed. The patient is competent. The risks and benefits of the procedure and the sedation options and risks were discussed with the patient. All questions were answered and informed consent was obtained. Patient identification and proposed procedure were verified by the physician. Mental Status Examination: normal. Prophylactic Antibiotics: The patient does not require prophylactic antibiotics. Prior Anticoagulants: The patient has taken no anticoagulant or antiplatelet agents. ASA Grade Assessment: II - A patient with mild systemic disease. After reviewing the risks and benefits, the patient was deemed in satisfactory condition to undergo the procedure. The anesthesia plan was to use monitored anesthesia care (MAC). Immediately prior to administration of medications, the patient was re-assessed for adequacy to receive sedatives. The heart rate, respiratory rate, oxygen saturations, blood pressure, adequacy of pulmonary ventilation, and response to care were monitored throughout the procedure. The physical status of the patient was re-assessed after the procedure. After I obtained informed consent, the scope was passed under direct vision. Throughout the procedure, the patient's blood pressure, pulse, and oxygen saturations were monitored continuously. The colonoscope was introduced through the anus and advanced to the terminal ileum. The colonoscopy was performed without difficulty. The patient tolerated the procedure well. The quality of the bowel preparation was adequate. The terminal ileum, ileocecal valve, appendiceal orifice, and rectum were photographed. Scope In: 8:46:33 AM Scope Withdrawal Time 0 hours 9 minutes 28 seconds Scope Out: 8:57:27 AM Total Procedure Duration Time 0 hours 10 minutes 54 seconds Findings: The perianal and digital rectal examinations were normal. Multiple small and large-mouthed diverticula were found in the recto-sigmoid colon, sigmoid colon, descending colon and splenic flexure. A localized area of the terminal ileum was congested. Biopsies were taken with a cold forceps for histology. Verification of patient identification for the specimen was done. Estimated blood loss was minimal. Impression: - Diverticulosis in the recto-sigmoid colon, in the sigmoid colon, in the descending colon and at the splenic flexure. - Congested mucosa in the terminal ileum. Biopsied. Recommendation: - Discharge patient to home. - Resume previous diet. - Continue present medications. - Await pathology results. - Repeat colonoscopy is recommended. The colonoscopy date will be determined after pathology results from today's exam become available for review. Procedure Code(s): --- Professional --- 12623, Colonoscopy, flexible; with biopsy, single or multiple CPT copyright 2021 [employer]. All rights reserved. The codes documented in this report are preliminary and upon station installer and repairer review may be revised to meet current compliance requirements. Eagle Aguayo DO 12/11/2023 9:08:50 AM This report has been signed electronically. Number of Addenda: 0 Note Initiated On: 12/11/2023 8:44 AM 12/11/23907 Date Eagle Aguayo DO Cosigner Signature: Date (if indicated) CC: Dr. Saroj Michel DO; Eagle Aguayo DO Date Dictated: 12/11/2344 Date Transcribed: Vocational Nursing Instructor: MAEVE Signed Normal [facility] EGD Reporton 12-11-2023 EGD Report Medical Records Department [address] [place] [address] EGD Report MR#: [id number] Acct: [id number] Name: MARIAN BARBER Rep #: [id number] : 1985 38 From: Eagle Aguayo DO PCP: Dr. Saroj Michel DO Status:[place] [facility] Patient Name: Marian Barber Procedure Date: 12/11/2023 8:32 AM Date of : 1985 Age: 38 Procedure: Upper GI endoscopy Indications: Iron deficiency anemia, Heartburn Providers: Eagle Aguayo DO Medicines: Monitored Anesthesia Care Patient Profile: This is a 38 year old male. Refer to note in patient chart for documentation of history and physical. Patient has symptoms of chronic heartburn. Complications: No immediate complications. Procedure: Pre-Anesthesia Assessment: - Prior to the procedure, a History and Physical was performed, and patient medications and allergies were reviewed. The patient is competent. The risks and benefits of the procedure and the sedation options and risks were discussed with the patient. All questions were answered and informed consent was obtained. Patient identification and proposed procedure were verified by the physician. Mental Status Examination: normal. Prophylactic Antibiotics: The patient does not require prophylactic antibiotics. Prior Anticoagulants: The patient has taken no anticoagulant or antiplatelet agents. ASA Grade Assessment: II - A patient with mild systemic disease. After reviewing the risks and benefits, the patient was deemed in satisfactory condition to undergo the procedure. The anesthesia plan was to use monitored anesthesia care (MAC). Immediately prior to administration of medications, the patient was re-assessed for adequacy to receive sedatives. The heart rate, respiratory rate, oxygen saturations, blood pressure, adequacy of pulmonary ventilation, and response to care were monitored throughout the procedure. The physical status of the patient was re-assessed after the procedure. After obtaining informed consent, the endoscope was passed under direct vision. Throughout the procedure, the patient's blood pressure, pulse, and oxygen saturations were monitored continuously. The Colonoscope was introduced through the mouth, and advanced to the second part of duodenum. The Endoscope was introduced through the mouth, and advanced to the second part of duodenum. The upper GI endoscopy was accomplished without difficulty. The patient tolerated the procedure well. Scope In: 8:39:13 AM Scope Out: 8:44:01 AM Total Procedure Duration Time 0 hours 4 minutes 48 seconds Findings: Localized moderate mucosal variance characterized by an abnormal appearance suspicious for Carrington's was found in the upper third of the esophagus. Biopsies were taken with a cold forceps for histology. Verification of patient identification for the specimen was done. Estimated blood loss was minimal. There were esophageal mucosal changes suspicious for short-segment Carrington's esophagus present in the lower third of the esophagus. Mucosa was biopsied with a cold forceps for histology in a targeted manner at intervals of 1 cm in the lower third of the esophagus. One specimen bottle was sent to pathology. Verification of patient identification for the specimen was done. Estimated blood loss was minimal. A small hiatal hernia was present. Patchy mildly erythematous mucosa without active bleeding and with no stigmata of bleeding was found in the duodenal bulb. Biopsies were taken with a cold forceps for histology. Verification of patient identification for the specimen was done. Impression: - Esophageal mucosal variant. Biopsied. 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 Biopsied. - Small hiatal hernia. - Erythematous duodenopathy. Biopsied. Recommendation: - Discharge patient to home. - Resume previous diet. - Continue present medications. - Await pathology results. Procedure Code(s): --- Professional --- 93898, Esophagogastroduodenosc opy, flexible, transoral; with biopsy, single or multiple CPT copyright 2021 [employer]. All rights reserved. The codes documented in this report are preliminary and upon station installer and repairer review may be revised to meet current compliance requirements. Eagle Aguayo DO 12/11/2023 9:05:53 AM This report has been signed electronically. Number of Addenda: 0 Note Initiated On: 12/11/2023 8:32 AM 12/11/23 0906 Date Eagle Aguayo DO Cosigner Signature: Date (if indicated) CC: Dr. Saroj Michel DO; Eagle Aguayo DO Date Dictated: 12/11/23 0832 Date Transcribed: Vocational Nursing Instructor: MAEVE Signed Normal [facility] H Pylori (initial)on 024 H Pylori (initial) --- Patient Age/Sex Location Account Attending Physician MARIAN BARBER 38/M EN [id number] Eagle Aguayo DO Specimen: [id number] Received: 12/11/23 Status: DRU Clark Num: [id number] Spec Type: IMMUNO Subm Dr: Eagle Aguayo DO PHYSICIAN INSTITUTION [place] [address] SPECIMEN INFORMATION: Tissue Source: B- Gastric antrum biopsy Clinical Info: GI bleed Specimen Number: [id number] CPT code: 25164 METHODOLOGY: Deparaffinized sections of prefer/formalin-fixed tissue or PAP/DQ stained slides are incubated with monoclonal/polyclonal antibodies/oligonucleot concepción probes. Localization is made via biotin free immunoperoxidase method. Appropriate controls are performed and reacted as expected. Results on target cell population are indicated in the following table: RESULTS: ANTIBODY / CLONE RESULT Block B H Pylori (polyclonal) Negative for Helicobacter pylori organisms. These tests were developed and their performance characteristics determined by [facility]. They may not have been cleared or approved by the U.S. Food and Drug Administration. The FDA has determined that such clearance or approval is not necessary. The above immunohistochemical/ivana Chivo markers are ordered and reviewed by the Pathologist. INTERPRETATION: B. Gastric antrum, biopsy: Negative for Helicobacter pylori organisms. SJ/mr 12/12/2023 Signed (signature on file) Dr. Lucas Kidd MD 12/12/23 1326 Normal [facility] Comment on above: Performed By: #### L 100.0500, L500.2500 #### [facility] [address] [place], [address] MR/POSTOP.[facility] 12-11-2023 MR/POSTOP.[facility] Medical Records Department [address] [place] [address] Anesthesia Postop Eval I 12/11/23906 MR#: [id number] Acct: [id number] Name: MARIAN BARBER Rep #: [id number] : 1985 38 From: Wayne Marquez PCP: Dr. Saroj Michel, DO Status:REG SDC Y Race: C Location: [place] [address] Anesthesia: Postop Eval I Current Vital Signs Temperature: 97 F Pulse Rate: 77 Blood Pressure: 110/64 Respiratory Rate: 16 Pulse Ox: 99 Oxygen Delivery Method: Room Air Assessment Airway patent: Yes Spontaneous unlabored respirations: Yes Mental status: Awake and Calm nausea: No Vomiting: No Anesthesia Complication: No Fluid Hydration Crystalloid volume administer (ml): 600 Total IV fluid infused: 600 Progress Note Anesthesia document: Postop Eval 1 completed: Yes 12/11/23907 Date Wayne Phelan Signature: Date CC: Signed Normal [facility] MR/[id number] 12-11-2023 MR/POSTOPAN2 Medical Records Department [address] [place] [address] Anesthesia Postop Eval II 12/11/231751 MR#: [id number] Acct: [id number] Name: MARIAN BARBER Rep #: [id number] : 1985 38 From: Edmar Roper MD PCP: Dr. Saroj Michel, DO Status:[facility] Y Race: C Location: [place] Anesthesia Postop Eval I Sum Postop Eval Completion status Anesthesia document: Postop Eval 1 completed: Yes Anesthesia Postop Eval I Summary Anesthesia Postop Eval I Summary: Anesthesia Postop Eval I: Assessment Summary Airway patent Yes 12/11/23 09:08 [email or web address] Spontaneous unlabored Yes 12/11/23 09:08 [email or web address] respirations Mental status Awake,Calm 12/11/23 09:08 [email or web address] nausea No 12/11/23 09:08 [email or web address] Vomiting No 12/11/23 09:08 [email or web address] Anesthesia Postop Eval I: Fluid Summary Crystalloid volume administer 600 12/11/23 09:08 [email or web address] (ml) Colloids volume administered ( ml) Blood Product volume administered (ml) Total IV fluid infused 600 12/11/23 09:08 [email or web address] Anesthesia Postop Eval I: Summary Notes Anesthesia Complication No 12/11/23 09:08 [email or web address] Anesthesia Complication Comment: Post-operative progress note Anesthesia: Postop Eval II Evaluation Mental status: Awake and Calm Pain Level: 0 nausea: No Vomiting: No Complications Anesthesia Complication: No 12/11/231752 Date Edmar Phelan Signature: Date CC: Signed Normal [facility] Special Stain Group Ion 07- Special Stain Group I ----- Patient Age/Sex Location Account Attending Physician MARIAN BARBER 38/M EN [id number] Eagle Aguayo DO Specimen: [id number] Received: 12/11/23 Status: DRU Clark Num: [id number] Spec Type: EGD BIOPSY Neptali Dr: Eagle Friend, DO HEADER OPERATION: Colonoscopy, EGD with biopsies PRE-OP DIAGNOSIS: GI bleed TISSUE SUBMITTED: A- Duodenum biopsy, B- Gastric antrum, C- Distal esophagus, D- Proximal esophagus biopsy, E- Terminal ileum biopsy MICROSCOPIC DIAGNOSIS A. Duodenum, biopsy: Fragments of duodenal mucosa with congestion. B. Gastric antrum, biopsy: Mild gastritis. See microscopic description and comment. C. Distal esophagus, biopsy: Fragments of gastroesophageal mucosa with congestion and chronic inflammation. Intestinal metaplasia (goblet cell metaplasia) not identified. See comment. D. Proximal esophagus, biopsy: A fragment of gastroesophageal mucosal with chronic inflammation. Intestinal metaplasia (goblet cell metaplasia) not identified. See comment. E. Terminal ileum, biopsy: Fragments of small intestinal mucosa, no pathologic diagnosis. MIKE/ 12/12/2023 COMMENT B. The results of immunohistochemistry for Helicobacter pylori will be reported separately ([id number]). C D. Alcian blue/PAS stain with matched control is used in the evaluation of the specimen. MICROSCOPIC DESCRIPTION Slides are reviewed. B. The specimen shows fragments of gastric mucosa with chronic inflammatory cell infiltrates in the lamina propria consisting of lymphocytes and plasma cells, consistent with mild chronic gastritis and focal mucosal congestion is also noted. GROSS DESCRIPTION A. Received in fixative is one container labeled with the patient's name and designated Duodenum biopsy. The specimen consists of two irregular fragments of light wong soft tissue that measuring in aggregate 0.5 x 0.3 x 0.1 cm. The specimen is totally submitted in one cassette. Patient Age/Sex Location Account Attending Physician MARIAN BARBER 38/M EN [id number] Eagle Aguayo DO B. Received in fixative is one container labeled with the patient's name and designated Gastric antrum. The specimen consists of two irregular fragments of light wong soft tissue that in aggregate measure 0.4 x 0.3 x 0.1 cm. The specimen is totally submitted in one cassette. C. Received in fixative is one container labeled with the patient's name and designated Distal esophagus biopsy. The specimen consists of two irregular fragments of light wong soft tissue that in aggregate measure 0.6 x 0.3 x 0.1 cm. The specimen is totally submitted in one cassette. D. Received in fixative is one container labeled with the patient's name and designated Proximal esophagus. The specimen consists of one irregular fragment of light wong soft tissue that measures 0.4 x 0.3 x 0.1 cm. The specimen is totally submitted in one cassette. E. Received in fixative is one container labeled with the patient's name and designated Terminal ileum biopsy. The specimen consists of multiple irregular fragments of light wong soft tissue that in aggregate measure 1.0 x 0.3 x 0.1 cm. The specimen is totally submitted in one cassette. Selam 12/11/2023 TC:3 CPT:51866i2 ,28698h8 Patient Age/Sex Location Account Attending Physician SUNILMARIAN VAZQUEZ 38/M EN [id number] Eaglejocelyn Aguayo DO Signed (signature on file) Dr. Lucas Kidd MD 12/12/23 1327 Normal [facility] Comment on above: Performed By: #### L 100.0500, L500.2500 #### [facility] [address] [place], [place], [id number] HH, Hemoglobin AND Hematocri ton 12-09-2023 Hematocrit (Bld) [Volume fraction] 47.3 % Normal 40-54 [facility] Comment on above: Performed By: #### L 100.0600 #### [facility] [address] [place], [address] Hemoglobin (Bld) [Mass/Vol] 15.6 g/dL Normal 13.0-16.5 [facility] Comment on above: Performed By: #### L 100.9817 #### [facility] [address] [place], [address] INFLUENZA A&B MOLECULAR (POC )on 07-16-2023 Flu A (POCT) Positive Abnormal Negative [facility] Procedural Control Valid [facility] ESR Westergren method (Bld) [Velocity]on 01-23-2023 ESR (Bld) [Velocity] 2 mm/h 0 - 15 mm/hr Cl [facility] Basophil percentageOrdered B y: Dr. Huddleston on 04-25-2022 Basophil percentage 0 SEEN /hpf 0-5 [facility] Bilirubin Test strip Ql (U)O rdered By: Dr. Huddleston on 04-25-2022 Bilirubin Ql (U) Negative Negative [facility] Ketones Test strip Ql (U)Ord ered By: Dr. Huddleston on 04-25-2022 Ketones Ql (U) Negative Negative [facility] Mucus LM Ql (Urine sed)Order ed By: Dr. Huddleston on 04-25-2022 Mucus Ql (Urine sed) 0 SEEN /hpf [facility] Nitrite Test strip Ql (U)Ord ered By: Dr. Huddleston on 04-25-2022 Nitrite Ql (U) Negative Negative [facility] Protein Test strip Ql (U)Ord ered By: Dr. Huddleston on 04-25-2022 Protein Ql (U) Negative Negative [facility] Squamous epithelial cells de tection in urine sediment by light microscopyOrdered By: Dr. Huddleston on 04-25-2022 Epithelial cells.squamous LM Ql (Urine sed) 0 SEEN /hpf 0-5 [facility] Urine blood detectionOrdered By: Dr. Huddleston on 04-25-2022 RBC Ql (U) 150 /ul Negative [facility] RBC Ql (U) 10-25 SEEN /hpf 0-5 [facility] Urine clarityOrdered By: Dr. Huddleston on 04-25-2022 Clarity (U) Clear Clear [facility] Urine color determinationOrd ered By: Dr. Hudldeston on 04-25-2022 Color (U) Yellow Yellow [facility] Urine glucose detectionOrder ed By: Dr. Huddleston on 04-25-2022 Glucose Ql (U) Normal mg/dl Normal [facility] Urine leukocyte esterase det ection by dipstickOrdered By: Dr. Huddleston on 04-25-2022 Leukocyte esterase Test strip Ql (U) Negative Negative [facility] Urine pHOrdered By: Dr. Dahlia naik on 04-25-2022 pH (U) 8.0 [pH] 5.0 - 8.0 [facility] Urine sediment bacteria coun t by microscopy (number/high power field)Ordered By: Dr. Huddleston on 04-25-2022 Bacteria LM.HPF (Urine sed) [#/Area] 0 /[HPF] None Seen [facility] Urine specific gravity measu rementOrdered By: Dr. Huddleston on 04-25-2022 Specific gravity (U) [Rel density] 1.010 1.002-1.030 [facility] Urobilinogen Auto test strip Ql (U)Ordered By: Dr. Huddleston on 04-25-2022 Urobilinogen Ql (U) Normal mg/dl Normal [facility] Absolute lymphocyte counton 02-19-2022 Lymphocytes Auto (Unsp spec) [#/Vol] 2.38 10*3/uL 0.83-4.51 [facility] Work Phone: Basophil percentageon 2021 Basophils/100 WBC (Bld) 1.2 % 0-1 [facility] Work Phone: Bilirubin [Mass/Vol] 0.40 mg/dL 0.20-1.00 [facility] Work Phone: [phone] Comment on above: For patients on eltr ombopag therapy, use of Dimension Panther Burn TBIL is not recommended. Chloride [Moles/Vol] 105 mmol/L 98-107 [facility] Work Phone: Cholesterol [Mass/Vol] 233 mg/dL <200 [facility] Work Phone: Comment on above: <200 mg/dL Desirable 200-240 mg/dL Borderline >240 mg/dL High Risk Eosinophils/100 WBC (Bld) 3.3 % 0-5 [facility] Work Phone: Glucose [Mass/Vol] 93 mg/dL 74-106 [facility] Work Phone: [phone] Neutrophils (Bld) [#/Vol] 2.4 10*3/uL 2.0-7.7 [facility] Work Phone: [phone] Neutrophils/100 WBC (Bld) 42.1 % 47-70 [facility] Work Phone: [phone] Potassium [Moles/Vol] 4.3 mmol/L 3.5-5.1 [facility] Work Phone: [phone] Protein [Mass/Vol] 7.5 g/dL 6.4-8.2 [facility] Work Phone: [phone] Sodium [Moles/Vol] 140 mmol/L 136-145 [facility] Work Phone: [phone] Triglyceride [Mass/Vol] 198 mg/dL <199 [facility] Work Phone: [phone] Comment on above: The drugs N-Acetylcy steine and Metamizole may falsely depress this assay.Serum Triglycerides Reference Interval Normal <150 mg/dL Borderline high 150 - 199 mg/dL High 200 - 499 mg/dL Very High > or = 500 mg/dL WBC (Bld) [#/Vol] 5.7 10*3/uL 4.4-11.0 [facility] Work Phone: [phone] Bilirubin Test strip Ql (U)o n 02-19-2022 Bilirubin Ql (U) Negative Negative [facility] Work Phone: [phone] Blood erythrocytes count (nu mber/volume)on 02-19-2022 RBC (Bld) [#/Vol] 5.12 10*6/uL 4.6-6.2 [facility] Work Phone: [phone] Blood hemoglobin measurement (mass/volume)on 02-19-2022 Hemoglobin (Bld) [Mass/Vol] 15.4 g/dL 13.0-16.5 [facility] Work Phone: [phone] Blood lymphocytes/100 leukoc yteson 02-19-2022 Lymphocytes/100 WBC (Bld) 41.5 % 19-41 [facility] Work Phone: Blood monocytes/100 leukocyt eson 02-19-2022 Monocytes/100 WBC (Bld) 11.7 % 0-10 [facility] Work Phone: Blood platelet mean volumeon 02-19-2022 Platelet mean volume (Bld) [Entitic vol] 10.5 fL 6.2-12.0 [facility] Work Phone: Determination of erythrocyte mean corpuscular volume (MCV)on 02-19-2022 MCV (RBC) [Entitic vol] 89.1 fL 80-94 [facility] Work Phone: Hematocrit Auto (Bld) [Volum e fraction]on 02-19-2022 Hematocrit (Bld) [Volume fraction] 45.6 % 40-54 [facility] Work Phone: Ketones Test strip Ql (U)on 02-19-2022 Ketones Ql (U) Negative Negative [facility] Work Phone: Laboratory - Chemistry and C hemistry - challengeon 02-19-2022 ALP [Catalytic activity/Vol] 63 U/L 45-117 [facility] Work Phone: ALT [Catalytic activity/Vol] 50 U/L 16-61 [facility] Work Phone: [phone] CO2 [Moles/Vol] 26.0 mmol/L 21.0-32.0 [facility] Work Phone: Globulin (S) [Mass/Vol] 3.4 g/dL 2.2-4.2 [facility] Work Phone: [phone] Urea nitrogen/Creatinine [Mass ratio] 11.5 mg/mg 10-20 [facility] Work Phone: Laboratory - Hematology and Cell countson 02-19-2022 Erythrocyte distribution width (RBC) [Entitic vol] 42.5 fL 35.1-43.9 [facility] Work Phone: [phone] Erythrocyte distribution width (RBC) [Ratio] 13.0 % 11.6-14.6 [facility] Work Phone: Immature granulocytes/100 WBC (Bld) 0.200 % 0.0-0.9 [facility] Work Phone: Comment on above: IG% - Immature Granu locytes (promyelocytes, myelocytes and metamyelocytes) > 1% indicates that a LEFT SHIFT is Present. MCH (RBC) [Entitic mass] 30.1 pg 27.0-32.0 [facility] Work Phone: Nucleated RBC/100 WBC (Bld) [Ratio] 0 % 0-5 [facility] Work Phone: MCHC Auto (RBC) [Mass/Vol]on 02-19-2022 MCHC (RBC) [Mass/Vol] 33.8 g/dL 32-36 [facility] Work Phone: Nitrite Test strip Ql (U)on 02-19-2022 Nitrite Ql (U) Negative Negative [facility] Work Phone: No Panel Informationon 02-19 Estimated GFR (MDRD) Amer 87 mL/min >60 [facility] Work Phone: Comment on above: GFR Calc Estimated GFR (MDRD) Non-Af Amer 72 mL/min >60 [facility] Work Phone: Comment on above: Non- GFR Calc Prostate Specific Antigen Screen 0.65 ng/mL 0.00-4.00 [facility] Work Phone: Comment on above: This test was perfor med using the TPSA assay method [facility]. Values obtained with differentassay methods cannot be used interchangably.When changing PSA assays in the course of monitoring apatient, additional sequential testing should be carriedout to confirm baseline values. Platelets bldon 02-19-2022 Platelets (Bld) [#/Vol] 308 10*3/uL 150-450 [facility] Work Phone: Protein Test strip Ql (U)on 02-19-2022 Protein Ql (U) Negative Negative [facility] Work Phone: Serum or plasma albumin joe urement (mass/volume)on 02-19-2022 Albumin [Mass/Vol] 4.1 g/dL 3.2-5.0 [facility] Work Phone: Serum or plasma albumin/glob ulin mass ratioon 02-19-2022 Albumin/Globulin [Mass ratio] 1.2 {ratio} 0.9-2.4 [facility] Work Phone: Serum or plasma calcium joe urement (mass/volume)on 02-19-2022 Calcium [Mass/Vol] 9.6 mg/dL 8.5-10.1 [facility] Work Phone: Serum or plasma cholesterol in HDL measurement (mass/volume)on 02-19-2022 Cholesterol in HDL [Mass/Vol] 35 mg/dL >40 [facility] Work Phone: Comment on above: The drugs N-Acetylcy steine and Metamizole may falsely depress this assay. Reference Range HDL <40 mg/dL Low HDL Cholesterol HDL >or= 60 mg/dL High HDL Cholesterol Serum or plasma cholesterol in VLDL measurement (mass/volume)on 02-19-2022 Cholesterol in VLDL [Mass/Vol] 40 mg/dL 5-40 [facility] Work Phone: Serum or plasma creatinine m easurement (mass/volume)on 02-19-2022 Creatinine [Mass/Vol] 1.22 mg/dL 0.70-1.30 [facility] Work Phone: Comment on above: The validity of the calculated GFR & GFRAA in patients over 70 years has not been determined. Clinical correlation is essential. Serum or plasma low density lipoprotein (LDL) cholesterol measurement (mass/volume)on 02-19-2022 Cholesterol in LDL [Mass/Vol] 158 mg/dL 0-130 [facility] Work Phone: Serum or plasma urea nitroge n measurement (mass/volume)on 02-19-2022 Urea nitrogen [Mass/Vol] 14 mg/dL 7-18 [facility] Work Phone: Thin prep Papanicolaou smear with manual screeningon 02-19-2022 Thin prep Papanicolaou smear with manual screening 32 U/L 15-37 [facility] Work Phone: Thin prep Papanicolaou smear with manual screening 9 5-15 [facility] Work Phone: Urine blood detectionon 01-26 RBC Ql (U) Negative Negative [facility] Work Phone: Urine clarityon 02-19-2022 Clarity (U) Clear Clear [facility] Work Phone: Urine color determinationon 02-19-2022 Color (U) Yellow Yellow [facility] Work Phone: Urine glucose detectionon Glucose Ql (U) Normal mg/dl Normal [facility] Work Phone: Urine leukocyte esterase det ection by dipstickon 02-19-2022 Leukocyte esterase Test strip Ql (U) Negative Negative [facility] Work Phone: Urine pHon 02-19-2022 pH (U) 6.0 [pH] 5.0 - 8.0 [facility] Work Phone: Urine specific gravity measu rementon 02-19-2022 Specific gravity (U) [Rel density] 1.020 1.002-1.030 [facility] Work Phone: Urobilinogen Auto test strip Ql (U)on 02-19-2022 Urobilinogen Ql (U) Normal mg/dl Normal [facility] Work Phone: Rapid Strep A Screenon 06-02 S. pyogenes Ag IA Ql (Unsp spec) Negative Normal [facility] Comment on above: Performed By: #### [id number] #### [facility] Microbiology Subsection [address] [place] [address] [place] Screenon 05-31-2018 [place] Scr Negative Normal Neg [facility] Comment on above: Performed By: #### [id number] #### [facility] Chemistry Manual Subsection [facility] [place] [address] Stool gastrointestinal hemog lobin detection by immunologic method Lower GI hemoglobin IA Ql (Stl) [facility] Work Phone: Vital Signs Date Time Vital Sign Value Performing Clinician Shelia lozoya 01-14-2025 11:30-0400 Body mass index (BMI) [Ratio] 33.16 kg/m2 Sybil Moomaw CATEGORY SPECIALIST.PAINTING TECHNICIAN Work Phone: [facility] 01-14-2025 11:30-0400 Body temperature 98.29 [degF] Sybil Moomaw CATEGORY SPECIALIST.PAINTING TECHNICIAN Work Phone: [facility] 01-14-2025 11:30-0400 Body weight 94.7 kg Sybil Moomaw CATEGORY SPECIALIST.PAINTING TECHNICIAN Work Phone: [facility] 01-14-2025 11:30-0400 Diastolic blood pressure 102 mm[Hg] Sybil Moomaw CATEGORY SPECIALIST.PAINTING TECHNICIAN Work Phone: [facility] 01-14-2025 11:30-0400 Heart rate 83 /min Sybil Moomaw CATEGORY SPECIALIST.PAINTING TECHNICIAN Work Phone: [facility] 01-14-2025 11:30-0400 Respiratory rate 19 /min Sybil Moomaw CATEGORY SPECIALIST.PAINTING TECHNICIAN Work Phone: [facility] 01-14-2025 11:30-0400 SaO2% (BldA) [Mass fraction] 95 % Sybil Moomaw CATEGORY SPECIALIST.PAINTING TECHNICIAN Work Phone: [facility] 01-14-2025 11:30-0400 Systolic blood pressure 140 mm[Hg] Sybil Moomaw CATEGORY SPECIALIST.PAINTING TECHNICIAN Work Phone: [facility] 11-23-2024 09:16-0400 Body temperature 98.6 [degF] Dr. Saroj Michel DO Work Phone: [facility] 11-23-2024 09:16-0400 Diastolic blood pressure 78 mm[Hg] Dr. Saroj Michel DO Work Phone: [facility] 11-23-2024 09:16-0400 Heart rate 61 /min Dr. Saroj Michel DO Work Phone: [facility] 11-23-2024 09:16-0400 Respiratory rate 16 /min Dr. Saroj Michel DO Work Phone: [facility] 11-23-2024 09:16-0400 SaO2% (BldA) [Mass fraction] 98 % Dr. Saroj Michel DO Work Phone: [facility] 11-23-2024 09:16-0400 Systolic blood pressure 120 mm[Hg] Dr. Saroj Michel DO Work Phone: [facility] 10-28-2024 12:48-0400 Body height 169 cm Saroj Michel DO Work Phone: [facility] 10-28-2024 12:48-0400 Body mass index (BMI) [Ratio] 33.19 kg/m2 Saroj Michel DO Work Phone: [facility] 10-28-2024 12:48-0400 Body temperature 98.01 [degF] Saroj Michel DO Work Phone: [facility] 10-28-2024 12:48-0400 Body weight 94.8 kg Saroj Michel DO Work Phone: [facility] 10-28-2024 12:48-0400 Diastolic blood pressure 88 mm[Hg] Saroj Michel DO Work Phone: [facility] [facility] 10-28-2024 12:48-0400 Heart rate 80 /min Saroj Michel DO Work Phone: [facility] 10-28-2024 12:48-0400 Respiratory rate 12 /min Saroj Michel DO Work Phone: [facility] 10-28-2024 12:48-0400 Systolic blood pressure 134 mm[Hg] Saroj Michel DO Work Phone: [facility] 05-08-2024 10:01-0500 Body mass index (BMI) [Ratio] 32.6 kg/m2 Saroj Michel DO Work Phone: [facility] 05-08-2024 10:01-0500 Body temperature 96.69 [degF] Saroj Michel DO Work Phone: [facility] 05-08-2024 10:01-0500 Body weight 91.63 kg Saroj Michel DO Work Phone: [facility] 05-08-2024 10:01-0500 Diastolic blood pressure 78 mm[Hg] Saroj Michel DO Work Phone: [facility] 05-08-2024 10:01-0500 Heart rate 72 /min Saroj Michel DO Work Phone: [facility] 05-08-2024 10:01-0500 Respiratory rate 16 /min Saroj Michel DO Work Phone: [facility] 05-08-2024 10:01-0500 Systolic blood pressure 128 mm[Hg] Saroj Michel DO Work Phone: [facility] 04-17-2024 07:51-0500 Body height 167.6 cm Cris bella MD Work Phone: [facility] 04-17-2024 07:51-0500 Body mass index (BMI) [Ratio] 31.8 kg/m2 Cris Sandhu MD Work Phone: [facility] 04-17-2024 07:51-0500 Body temperature 97.3 [degF] Cris bella MD Work Phone: [facility] 04-17-2024 07:51-0500 Body weight 89.36 kg Cris bella MD Work Phone: [facility] 04-17-2024 07:51-0500 Diastolic blood pressure 84 mm[Hg] Cris Sandhu MD Work Phone: [facility] 04-17-2024 07:51-0500 Heart rate 91 /min Cris bella MD Work Phone: [facility] 04-17-2024 07:51-0500 SaO2% (BldA) [Mass fraction] 98 % Cris Sandhu MD Work Phone: [facility] 04-17-2024 07:51-0500 Systolic blood pressure 142 mm[Hg] Cris Sandhu MD Work Phone: [facility] 11-19-2023 10:47-0400 Body height 168 cm Saroj Michel DO Work Phone: [facility] 11-19-2023 10:47-0400 Body mass index (BMI) [Ratio] 31.82 kg/m2 Saroj Michel DO Work Phone: [facility] 11-19-2023 10:47-0400 Body temperature 97.39 [degF] Saroj Michel DO Work Phone: [facility] 11-19-2023 10:47-0400 Body weight 89.81 kg Saroj Michel DO Work Phone: [facility] 11-19-2023 10:47-0400 Diastolic blood pressure 80 mm[Hg] Saroj Michel DO Work Phone: [facility] 11-19-2023 10:47-0400 Heart rate 80 /min Saroj Michel DO Work Phone: [facility] 11-19-2023 10:47-0400 Respiratory rate 12 /min Saroj Michel DO Work Phone: [facility] 11-19-2023 10:47-0400 Systolic blood pressure 124 mm[Hg] Saroj Michel DO Work Phone: [facility] 07-16-2023 19:05-0500 Body temperature 99.7 [degF] Krislyn Aberegg PA Work Phone: [facility] 07-16-2023 19:05-0500 Body weight 90.81 kg Krislyn Aberegg PA Work Phone: [facility] 07-16-2023 19:05-0500 Diastolic blood pressure 80 mm[Hg] Krislyn Aberegg PA Work Phone: [facility] 07-16-2023 19:05-0500 Heart rate 106 /min Krislyn Aberegg PA Work Phone: [facility] 07-16-2023 19:05-0500 Respiratory rate 18 /min Krislyn Aberegg PA Work Phone: [facility] 07-16-2023 19:05-0500 SaO2% (BldA) [Mass fraction] 95 % Krislyn Aberegg PA Work Phone: [facility] 07-16-2023 19:05-0500 Systolic blood pressure 128 mm[Hg] Krislyn Aberegg PA Work Phone: [facility] 07-09-2023 08:08-0500 Body height 167.[address] Saroj Michel Work Phone: 1(323)167-375718 [place] [address] 07-09-2023 08:08-0500 Body mass index (BMI) [Ratio] 33 kg/m2 Dr. Saroj Michel Work Phone: 7(076)023-966118 [place] [address] 07-09-2023 08:08-0500 Body weight 92.[address] Saroj Michel Work Phone: 4(092)793-702211 [place] [address] 07-09-2023 08:08-0500 Diastolic blood pressure 78 mm[Hg] Dr. Saroj Michel Work Phone: 4(761)[phone] [place] [address] 07-09-2023 08:08-0500 Systolic blood pressure 118 mm[Hg] Dr. Saroj Michel Work Phone: 0(167)629-905518 [place] [address] 06-25-2023 08:35-0500 Body mass index (BMI) [Ratio] 33.3 kg/m2 Dr. Saroj Michel Work Phone: 6(623)[phone] [place] [address] 06-25-2023 08:35-0500 Body weight 93.[address] Saroj Michel Work Phone: 3(508)[phone] [place] [address] 01-23-2023 09:08-0400 Body height 170 cm Saroj Michel DO Work Phone: [facility] 01-23-2023 09:08-0400 Body temperature 97 [degF] Saroj Michel DO Work Phone: [facility] 01-23-2023 09:08-0400 Body weight 91.63 kg Saroj Michel DO Work Phone: [facility] 01-23-2023 09:08-0400 Diastolic blood pressure 70 mm[Hg] Saroj Michel DO Work Phone: [facility] 01-23-2023 09:08-0400 Heart rate 68 /min Saroj Michel DO Work Phone: [facility] 01-23-2023 09:08-0400 Respiratory rate 16 /min Saroj Michel DO Work Phone: [facility] 01-23-2023 09:08-0400 Systolic blood pressure 104 mm[Hg] Saroj Michel DO Work Phone: [facility] 07-25-2022 08:49-0500 Body temperature 97 [degF] Saroj Michel DO Work Phone: [facility] 07-25-2022 08:49-0500 Body weight 94.35 kg Saroj Michel DO Work Phone: [facility] 07-25-2022 08:49-0500 Diastolic blood pressure 80 mm[Hg] Saroj Michel DO Work Phone: [facility] 07-25-2022 08:49-0500 Heart rate 80 /min Saroj Michel DO Work Phone: [facility] 07-25-2022 08:49-0500 Respiratory rate 16 /min Saroj Michel DO Work Phone: [facility] 07-25-2022 08:49-0500 Systolic blood pressure 118 mm[Hg] Saroj Michel DO Work Phone: [facility] 07-15-2022 12:29-0500 Body temperature 98.01 [degF] Amelia Chicas APRN.PAINTING TECHNICIAN Work Phone: [facility] 07-15-2022 12:29-0500 Body weight 95.71 kg Amelia Chicas APRN.PAINTING TECHNICIAN Work Phone: [facility] 07-15-2022 12:29-0500 Diastolic blood pressure 80 mm[Hg] Amelia Chicas APRN.PAINTING TECHNICIAN Work Phone: [facility] 07-15-2022 12:29-0500 Heart rate 70 /min Amelia Chicas APRN.PAINTING TECHNICIAN Work Phone: [facility] 07-15-2022 12:29-0500 Respiratory rate 16 /min Amelia Chicas APRN.PAINTING TECHNICIAN Work Phone: [facility] 07-15-2022 12:29-0500 SaO2% (BldA) [Mass fraction] 99 % Amelia Chicas APRN.PAINTING TECHNICIAN Work Phone: [facility] 07-15-2022 12:29-0500 Systolic blood pressure 114 mm[Hg] Amelia Chicas APRN.PAINTING TECHNICIAN Work Phone: [facility] 04-25-2022 08:56-0500 Body height 167.[address] Saroj Michel Work Phone: [facility] 04-25-2022 08:56-0500 Body mass index (BMI) [Ratio] 30.7 kg/m2 Dr. Saroj Michel Work Phone: [facility] 04-25-2022 08:56-0500 Body temperature 96 [degF] Dr. Saroj Michel Work Phone: [facility] 04-25-2022 08:56-0500 Body weight 86.[address] Saroj Michel Work Phone: [facility] 04-25-2022 08:56-0500 Diastolic blood pressure 86 mm[Hg] Dr. Saroj Michel Work Phone: [facility] 04-25-2022 08:56-0500 Heart rate 61 /min Dr. Saroj Michel Work Phone: [facility] 04-25-2022 08:56-0500 Respiratory rate 16 /min Dr. Saroj Michel Work Phone: [facility] 04-25-2022 08:56-0500 SaO2% (BldA) [Mass fraction] 100 % Dr. Saroj Michel Work Phone: [facility] 04-25-2022 08:56-0500 Systolic blood pressure 135 mm[Hg] Dr. Saroj Michel Work Phone: [facility] 02-19-2022 08:51-0400 Body mass index (BMI) [Ratio] 34.2 kg/m2 Dr. Saroj Michel Work Phone: [facility] Work Phone: 02-19-2022 08:51-0400 Body temperature 97.3 [degF] Dr. Saroj Michel Work Phone: [facility] Work Phone: 02-19-2022 08:51-0400 Body weight 96.[address] Saroj Michel Work Phone: [facility] Work Phone: 02-19-2022 08:51-0400 Diastolic blood pressure 76 mm[Hg] Dr. Saroj Michel Work Phone: [facility] Work Phone: 02-19-2022 08:51-0400 Heart rate 68 /min Dr. Saroj Michel Work Phone: [facility] Work Phone: 02-19-2022 08:51-0400 Respiratory rate 14 /min Dr. Saroj Michel Work Phone: [facility] Work Phone: 02-19-2022 08:51-0400 SaO2% (BldA) [Mass fraction] 97 % Dr. Saroj Michel Work Phone: [facility] Work Phone: 02-19-2022 08:51-0400 Systolic blood pressure 136 mm[Hg] Dr. Saroj Michel Work Phone: [facility] Work Phone: 01-22-2022 10:51-0400 Body mass index (BMI) [Ratio] 33.7 kg/m2 Dr. Saroj Michel Work Phone: [facility] Work Phone: 01-22-2022 10:51-0400 Body weight 94.[address] Saroj Michel Work Phone: [facility] Work Phone: Encounters Encounter Date Encounter Type Care Provider Facility Start: 02-01-2025 End: 02-03-2025 Refill Hienzoey Rivas CATEGORY SPECIALIST.PAINTING TECHNICIAN Work Phone: [facility] Comment on above: Refill Request Start: 01-26-2025 End: 02-04-2025 Telephone encounter Saroj Michel DO Work Phone: [facility] Comment on above: Patient Question Start: 01-14-2025 End: 01-14-2025 Patient encounter procedure Sybil Mike CATEGORY SPECIALIST.PAINTING TECHNICIAN Work Phone: [facility] Comment on above: Irritation of left e ar (Primary Dx) Start: 01-14-2025 End: 01-14-2025 ambulatory SAROJ MICHEL Facility:[facility] Start: 01-11-2025 End: 01-11-2025 ambulatory Saroj Michel DO Work Phone: [facility] Comment on above: Wellbutrin trial res ults Start: 01-11-2025 End: 01-14-2025 Telephone encounter Saroj Michel DO Work Phone: [facility] Start: 11-23-2024 End: 11-23-2024 Patient encounter procedure Blu Langston [facility] Work Phone: Start: 11-23-2024 End: 11-23-[address] Saroj Michel DO Work Phone: [facility] Start: 11-23-2024 End: 11-23-2024 ambulatory Blu GUILLEN Facility:[facility] Start: 10-28-2024 End: 10-28-2024 Patient encounter procedure Saroj Michel DO Work Phone: [facility] Comment on above: Well adult exam (Esme mahin Dx); Headaches due to old head injury; Gastroesophageal reflux disease without esophagitis; Attention deficit disorder (ADD) in adult; Anal fissure Start: 10-28-2024 End: 10-28-2024 Patient encounter status Saroj Michel DO Work Phone: [facility] Start: 10-28-2024 End: 10-28-2024 ambulatory SAROJ TAYLORON Facility:[facility] Start: 08-19-2024 End: 08-19-2024 Refill Luis Alfredo Limutzman MANDY Work Phone: [facility] Comment on above: Refill Request Start: 2024 End: 2024 Patient encounter procedure Blu GUILLEN -[facility] Work Phone: Start: 2024 End: 2024 ambulatory Blu UGILLEN Facility:[facility] Start: 06-12-2024 End: 06-12-2024 Refill Saroj Michel DO Work Phone: [facility] Comment on above: Refill Request Start: 06-03-2024 End: 06-03-2024 Admission to same day surgery center Cris Sandhu MD Work Phone: [facility] Comment on above: Anal fissure (Primar y Dx) Start: 06-03-2024 End: 06-03-2024 ambulatory CRIS SANDHU Facility:[facility] Start: 06-03-2024 End: 06-03-2024 Telemedicine consultation with patient Cris Sandhu MD Work Phone: [facility] Start: 06-02-2024 End: 06-02-2024 Refill Saroj Michel DO Work Phone: [facility] Comment on above: Refill Request Start: 06-01-2024 End: 06-01-2024 Telephone encounter Cris Sandhu MD Work Phone: [facility] Comment on above: Patient Question Start: 05-28-2024 End: 06-01-2024 Admission to same day surgery center Cris Sandhu MD Work Phone: [facility] Comment on above: Post surgery Start: 05-28-2024 End: 06-01-2024 ambulatory Cris Sandhu MD Work Phone: [facility] Start: 05-21-2024 End: 05-21-2024 ambulatory CRIS SANDHU Facility:[facility] Start: 05-14-2024 End: 05-14-2024 ambulatory SAROJ MICHEL Facility:[facility] Start: 05-08-2024 End: 05-08-2024 ambulatory SAROJ MICHEL Facility:[facility] Start: 05-08-2024 End: 05-08-2024 Patient encounter procedure Saroj Michel DO Work Phone: [facility] Comment on above: Attention deficit di sorder (ADD) in adult (Primary Dx); Gastroesophageal reflux disease without esophagitis; Tobacco use disorder; Anal fissure; 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 Start: 05-06-2024 End: 05-06-2024 Admission to same day surgery center Cris Sandhu MD Work Phone: [facility] Surgery Comment on above: Anal fissure (Primar y Dx) Start: 05-06-2024 End: 05-06-2024 ambulatory Cris Sandhu MD Work Phone: [facility] Start: 05-06-2024 End: 05-06-2024 Telemedicine consultation with patient Cris Sandhu MD Work Phone: [facility] Start: 05-01-2024 End: 05-01-2024 Admission to same day surgery center Cris Sandhu MD Work Phone: [facility] Surgery Comment on above: Lack of progress Start: 05-01-2024 End: 05-01-2024 ambulatory Cris Sandhu MD Work Phone: [facility] Start: 04-17-2024 End: 04-17-2024 Patient encounter procedure Cris Sandhu MD Work Phone: [facility] Surgery Comment on above: Anal fissure (Primar y Dx); Rectal bleed; Rectal pain Start: 04-17-2024 End: 04-17-2024 ambulatory CRIS SANDHU Facility:[facility] Start: 04-14-2024 End: 04-14-2024 Refill Saroj L Michel DO Work Phone: [facility] Comment on above: Refill Request Start: 04-13-2024 ambulatory Blu Nino Amauryjacey Facility :[facility] Start: 04-10-2024 End: 04-10-2024 Orders Only Abdoulaye Sarabia MD Work Phone: [facility] Comment on above: Rectal bleed (Primar y Dx); Rectal pain Start: 04-09-2024 ambulatory Rivera Banda Fac ility:[facility] Start: 04-09-2024 End: 04-13-2024 Evaluation and management of inpatient Rivera Banda Facility:[facility] Start: 04-09-2024 End: 04-09-2024 ambulatory Eagle Aguayo Facility:[facility] Start: 03-27-2024 ambulatory Eagle Aguayo Facility :[facility] Start: 03-27-2024 End: 03-27-2024 ambulatory Eagle Aguayo Facility:[facility] Start: 03-24-2024 End: 03-24-2024 Emergency department patient visit Edilson Huddleston Facility:[facility] Start: 03-23-2024 End: 03-23-2024 ambulatory Saroj Michel Facility:[facility] Start: 03-23-2024 End: 03-23-2024 ambulatory Latisha Torres Facility:[facility] Start: 03-18-2024 End: 03-18-2024 ambulatory Saroj Michel Facility:[facility] Start: 03-17-2024 ambulatory Health Risk Assessment Facility:[facility] Start: 03-11-2024 End: 03-12-2024 Refill Saroj L Michel DO Work Phone: [facility] Comment on above: Refill Request Start: 02-17-2024 End: 02-18-2024 Refill Saroj Michel DO Work Phone: [facility] Comment on above: Refill Request Start: 01-16-2024 End: 01-17-2024 Refill Saroj Michel DO Work Phone: [facility] Comment on above: Refill Request Start: 12-31-2023 ambulatory Saroj Michel Facilit y:[facility] Start: 12-31-2023 End: 12-31-2023 ambulatory Saroj Michel Facility:[facility] Start: 12-17-2023 Refill Saroj Jeffrey son DO Work Phone: [facility] Comment on above: Refill Request Start: 12-11-2023 End: 12-11-2023 ambulatory Saroj Manriquezrison Facility:[facility] Start: 12-09-2023 End: 12-09-2023 ambulatory Eagle Aguayo Facility:[facility] Start: 11-25-2023 Telephone encounter Saroj Saini Ford harryison DO Work Phone: [facility] Comment on above: [facility] requesting fax o rder Start: 11-19-2023 Telephone encounter Saroj arnett DO Work Phone: [facility] Comment on above: Results, Lab Start: 11-19-2023 End: 11-19-2023 Patient encounter procedure Saroj Michel DO Work Phone: [facility] Comment on above: Palpitations (Primar y Dx); Attention deficit disorder (ADD) in adult; Gastroesophageal reflux disease without esophagitis; Headaches due to old head injury Start: 10-14-2023 Refill Saroj Jeffrey son DO Work Phone: [facility] Comment on above: Refill Request Start: 09-09-2023 Refill Saroj Jeffrey son DO Work Phone: [facility] Comment on above: Refill Request Start: 08-14-2023 End: 08-14-[address] Saroj Mihcel Work Phone: [facility] Work Phone: Start: 08-14-2023 End: 08-14-[address] Saroj Michel Work Phone: [facility] Work Phone: Start: 07-26-2023 End: 07-26-[address] Saroj Michel Work Phone: [facility] Work Phone: Start: 07-17-2023 ambulatory Saroj merritt DO Work Phone: [facility] Start: 07-17-2023 Letter encounter Saroj Manriquezr dulce DO Work Phone: [facility] Comment on above: Urgent care letter Start: 07-16-2023 End: 07-16-2023 Patient encounter procedure Frieda GUILLEN Work Phone: [facility] Comment on above: Influenza A (Primary Dx); URI, acute Start: 07-09-2023 End: 07-09-[address] Saroj Michel Work Phone: [facility] Work Phone: Start: 06-25-2023 End: 06-25-[address] Saroj Michel Work Phone: [facility] Work Phone: Start: 05-05-2023 Refill Hien Rivas CATEGORY SPECIALIST.PAINTING TECHNICIAN Work Phone: [facility] Comment on above: Refill Request Start: 05-03-2023 Refill Saroj merritt DO Work Phone: [facility] Comment on above: Refill Request Start: 04-06-2023 Refill Luis Alfredo jose CATEGORY SPECIALIST.PAINTING TECHNICIAN Work Phone: [facility] Comment on above: Refill Request Start: 03-04-2023 Telephone encounter Saroj arnett DO Work Phone: [facility] Comment on above: Patient Question Start: 02-06-2023 Telephone encounter Saroj arnett DO [facility] Phone[facility] Comment on above: Medication Problem Start: 02-04-2023 Refill Saroj merritt DO [facility] Comment on above: Refill Request Start: 01-25-2023 Telephone encounter Saroj arnett DO Work Phone: [facility] Comment on above: Results Start: 01-23-2023 Encounter for fuentes saini adult medical examination without abnormal findings SAROJ Saini ANAND [facility] Start: 01-23-2023 End: 01-23-2023 Patient encounter procedure Saroj Michel DO [facility] Comment on above: Well adult exam ([facility] mahin Dx); Gastroesophageal reflux disease without esophagitis; Attention deficit disorder (ADD) in adult; Chronic midline low back pain with bilateral sciatica Start: 01-23-2023 End: 01-23-2023 Patient encounter status Saroj Michel DO Work Phone: [facility] Work Phone: Start: 12-25-2022 Refill Saroj merritt DO [facility] Comment on above: Refill Request Start: 08-16-2022 End: 08-16-[address] Saroj Michel Work Phone: [facility] Work Phone: Start: 08-16-2022 End: 08-16-[address] Saroj Michel Work Phone: [facility] Start: 08-06-2022 Telephone encounter Saroj arnett DO Work Phone: [facility] Comment on above: Zurdo GUILLEN Start: 07-25-2022 End: 07-25-2022 Patient encounter procedure Saroj Michel DO Work [facility] Comment on above: Gastroesophageal ref lux disease without esophagitis (Primary Dx); Attention deficit disorder (ADD) in adult; Headaches due to old head injury; Dyslipidemia; Ureterolithiasis; Radiculopathy of lumbar region; Chronic midline low back pain with bilateral sciatica Start: 07-18-2022 End: 07-18-[address] Saroj Michel Work Phone: [facility] Start: 07-15-2022 End: 07-15-2022 Patient encounter procedure Amelia Chicas APRN.PAINTING TECHNICIAN Work Phone: [facility] Comment on above: Acute midline low ba ck pain without sciatica (Primary Dx) Start: 07-12-2022 End: 07-12-[address] Saroj Michel Work Phone: [facility] Start: 07-02-2022 Refill Saroj merritt DO Work Phone: [facility] Comment on above: Refill Request Start: 07-02-2022 End: 07-02-[address] Saroj Michel Work Phone: [facility] Start: 06-18-2022 End: 06-18-[address] Saroj Michel Work Phone: [facility] Start: 05-07-2022 Refill Hien hamilton APRN.PAINTING TECHNICIAN Work Phone: [facility] Comment on above: Refill Request Start: 04-26-2022 End: 04-26-[address] Saroj Michel Work Phone: [facility] Start: 04-25-2022 End: 04-25-2022 Emergency department patient visit Dr. Saroj Michel Work Phone: [facility] Start: 03-15-2022 End: 03-15-[address] Saroj Michel Work Phone: [facility] Start: 02-20-2022 End: 02-20-[address] Saroj Michel Work Phone: [facility] Start: 02-19-[address] [facility] Start: 02-19-2022 End: 02-19-[address] Saroj Michel Work Phone: [facility] Start: 01-31-2022 End: 01-31-[address] Saroj Michel Work Phone: [facility] Start: 01-31-2022 End: 01-31-2022 [facility] Work Phone: [facility] Comment on above: Attention deficit di sorder (ADD) in adult (Primary Dx); Headaches due to old head injury Start: 01-24-2022 End: 01-24-[address] Saroj Michel Work Phone: [facility] Start: 01-22-2022 Non-patient / Non-visit Dr. Veronika Michel Work Phone: [facility] Start: 01-22-2022 End: 01-22-[address] Saroj Michel Work Phone: [facility] Start: 01-22-2022 End: 01-22-[address] Saroj Michel Work Phone: [facility] Start: 01-04-2022 End: 01-04-[address] [facility] Start: 12-08-2021 Refill Saroj merritt DO Work Phone: [facility] Comment on above: Refill Request Start: 11-28-2021 End: 11-28-[address] Saroj Michel Work Phone: [facility] Gastroenterology Start: 01-10-2017 End: 01-10-2017 [facility] Procedures Date Procedure Procedure Detail Performing Clinician Start: 11-23-2024 X-ray of foot, three or more views Dr. Saroj Michel DO Work Phone: Start: 11-19-2023 Adult depression scr eening assessment Saroj Michel DO Work Phone: Start: 07-16-2023 INFLUENZA A&B MOLECU LAR (POC) Frieda GUILLEN Work Phone: Start: 06-25-[address] Chao Michel Work Phone: Start: 02-19-2023 Lipid 1996 panel - S ruth or Plasma Saroj Michel DO Work Phone: Start: 04-25-2022 CT of abdomen and pe lvis without contrast Dr. Saroj Michel Work Phone: Start: 01-22-2022 X-ray of lumbar spin e, two or three views Dr. Saroj Michel Work Phone: Start: 01-04-2022 Radionuclide gastric emptying study Dr. Saroj Michel Work Phone: Start: 05-26-2018 Adult depression scr eening assessment Saroj Michel DO Work Phone: Start: 06-24-2015 Lipid 1996 panel - S ruth or Plasma Saroj Michel DO Work Phone: Measurement of occul t blood in stool specimen using immunoassay Dr. Saroj Michel Work Phone: Plan of Treatment Date Care Activity Detail Author Start: 02-20-2028 Lipid panel Lipid Screening [facility] Start: 06-27-2026 Urine microalbumin profile [facility] Start: 05-03-2025 End: 05-03-2025 Patient encounter procedure 05/03/2025 11:20 AM EST Office Visit [facility] [place] [address] [facility] [place] [address] Saroj Michel, [address] [facility] [place] [place] [address] Medication [facility] [place] Comment on above: Medication Start: 01-25-2025 Influenza vaccination Influenza Vacc ine (#1) [facility] Start: 11-18-2024 Anxiety Screening Anxiety Screening [facility] Start: 11-18-2024 Depression Screening Depression Scre ening [facility] Start: 10-28-2024 End: 10-28-2024 Patient encounter procedure 10/28/2024 1:00 PM EDT Office Visit [facility] [place] [address] [facility] [place] [address] Saroj Michel DO [address] [facility] [place], [place] [id number] Physical/Med Check [facility] Comment on above: Physical/Med Check Start: 06-05-2024 Covid-19 Vaccine ( season) Covid-19 Vaccine () [facility] Comment on above: Postponed from 01/25 (Declined at this time) Start: 06-03-2024 End: 06-03-2024 Admission to same day surgery center 06/03/2024 8:00 AM EST [facility] Colorectal Surgery [address] [id number] Cris Sandhu MD [address] [place] [address] [phone] postop sphincterotomy Colorectal Surgery Comment on above: postop sphincterotom y Start: 05-21-2024 End: 05-21-2024 Admission to same day surgery center 05/21/2024 2:51 PM EST - 05/21/2024 4:25 PM EST Surgery Admitting [address] [place] [id number] [place] [address] [place] [id number] EXAM UNDER ANESTHESIA RECTAL Admitting Comment on above: EXAM UNDER ANESTHESI A RECTAL Start: 05-21-2024 End: 05-21-2024 Anrct xm surg req anes general spi/edrl dx EXAM UNDER ANESTHESIA RECTAL Anal fissure 05/21/2024 2:51 PM EST [facility] Start: 05-21-2024 End: 05-21-2024 Sphincterotomy anal division sphincter spx SPHINCTEROTOMY ANAL Anal fissure 05/21/2024 2:51 PM EST [facility] Start: 05-21-2024 Subsequent hospital visit by physician Admitting Comment on above: Anal fissure [K60.2] Start: 05-19-2024 End: 05-19-2024 Patient encounter procedure 05/19/2024 10:30 AM EST Office Visit Colorectal Surgery [address] [address] Koko Anguiano MD [address] [place] [address] second opinion Colorectal Surgery Comment on above: second opinion Start: 05-14-2024 End: 05-14-2024 Patient encounter procedure 05/14/2024 1:00 PM EST Office Visit Financial Clearance Phone Screening [id number] Surg Reg Appt Financial Clearance Phone Screening Comment on above: Surg Reg Appt Start: 05-12-2024 End: 05-12-2024 Patient encounter procedure 05/12/2024 9:30 AM EST Office Visit Colorectal Surgery [address] [place] [address] Koko Anguiano MD [address] [place] [address] second opinion - resc from 05/19 Colorectal Surgery Comment on above: second opinion - res c from 05/19 Start: 05-08-2024 End: 05-08-2024 Patient encounter procedure 05/08/2024 10:00 AM EST Office Visit [facility] [place] [address] [facility] [place], [place] [id number] Saroj Michel, [address] [place] [address] Medication and current medical conditions [facility] [place] Comment on above: Medication and curre nt medical conditions Start: 04-17-2024 End: 04-17-2024 Patient encounter procedure [facility] [place] Comment on above: 6 month medication c heck. Rectal bleed [K62.5] Start: 01-26-2024 Covid-19 Vaccine () Covid-19 Vaccine () [facility] Start: 01-26-2024 Influenza vaccination Influenza Vacc ine (#1) [facility] Start: 11-19-2023 End: 02-18-2024 Thyrotropin [Units/volume] in Serum or Plasma THYROID STIMULATING HORMONE Lab Routine Palpitations Expected: 11/19/2023, Expires: 02/18/2024 [facility] Work Phone: Comment on above: Expected: 11/19/2023 , Expires: 02/18/2024 Start: 11-19-2023 End: 02-18-2024 Thyroxine (T4) free [Mass/volume] in Serum or Plasma T4 FREE/FREE THYROXINE Lab Routine Palpitations Expected: 11/19/2023, Expires: 02/18/2024 [facility] Comment on above: Expected: 11/19/2023 , Expires: 02/18/2024 Start: 11-19-2023 End: 02-18-2024 Triiodothyronine (T3) Free [Mass/volume] in Serum or Plasma T3, FREE Lab Routine Palpitations Expected: 11/19/2023, Expires: 02/18/2024 [facility] Comment on above: Expected: 11/19/2023 , Expires: 02/18/2024 Start: 11-19-2023 End: 11-19-2023 Patient encounter procedure 11/19/2023 10:40 AM EDT Office Visit [facility] [place] [address] [place] [address] Saroj Michel DO [address] [place] [address] Medication [facility] [place] Comment on above: Medication Start: 06-25-2023 Patient referral [facility] Work Phone: Start: 05-27-2023 Behavioral Health Screening Behavioral Health Screening [facility] Start: 01-25-2023 Covid-19 Vaccine ( season) Covid-19 Vaccine () [facility] Start: 01-25-2023 [facility] Start: 01-23-2023 End: 03-25-2023 C reactive protein [Mass/volume] in Serum or Plasma [facility] Work Phone: Comment on above: Expected: 01/23/2023 , Expires: 03/25/2023 Start: 01-23-2023 End: 03-25-2023 Cobalamin (Vitamin B12) [Mass/volume] in Serum or Plasma [facility] Work Phone: Comment on above: Expected: 01/23/2023 , Expires: 03/25/2023 Start: 01-23-2023 End: 03-25-2023 Hemoglobin A1c in Blood [facility] Work Phone: Comment on above: Expected: 01/23/2023 , Expires: 03/25/2023 Start: 01-23-2023 End: 03-25-2023 Magnesium [Mass/volume] in Serum or Plasma [facility] Work Phone: Comment on above: Expected: 01/23/2023 , Expires: 03/25/2023 Start: 01-23-2023 End: 03-25-2023 Thyrotropin [Units/volume] in Serum or Plasma [facility] Work Phone: Comment on above: Expected: 01/23/2023 , Expires: 03/25/2023 Start: 01-23-2023 End: 03-25-2023 Thyroxine (T4) free [Mass/volume] in Serum or Plasma [facility] Work Phone: Comment on above: Expected: 01/23/2023 , Expires: 03/25/2023 Start: 07-28-2022 Lipid 1996 panel - S ruth or Plasma Lipid Screening [facility] Start: 07-28-2022 Lipid panel Lipid Screening [facility] Start: 07-28-2022 LIPID SCREEN LIPID SCREEN [facility] Start: 07-25-2022 End: 09-24-2022 CBC W Auto Differential panel - Blood CBC + DIFF Lab Routine Dyslipidemia Expected: 07/25/2022, Expires: 09/24/2022 [facility] Work Phone: Comment on above: Expected: 07/25/2022 , Expires: 09/24/2022 Start: 07-25-2022 End: 09-24-2022 Comprehensive metabolic 2000 panel - Serum or Plasma COMP METABOLIC PANEL Lab Routine Dyslipidemia Expected: 07/25/2022, Expires: 09/24/2022 [facility] Work Phone: Comment on above: Expected: 07/25/2022 , Expires: 09/24/2022 Start: 07-25-2022 End: 09-24-2022 Hemoglobin A1c in Blood HGB A1C Lab Routine Dyslipidemia Expected: 07/25/2022, Expires: 09/24/2022 [facility] Work Phone: Comment on above: Expected: 07/25/2022 , Expires: 09/24/2022 Start: 07-25-2022 End: 09-24-2022 Lipid 1996 panel - Serum or Plasma LIPID PANEL BASIC Lab Routine Dyslipidemia Expected: 07/25/2022, Expires: 09/24/2022 [facility] Work Phone: Comment on above: Expected: 07/25/2022 , Expires: 09/24/2022 Start: 07-25-2022 End: 09-24-2022 Thyrotropin [Units/volume] in Serum or Plasma TSH BLD Lab Routine Headaches due to old head injury Expected: 07/25/2022, Expires: 09/24/2022 [facility] Work Phone: Comment on above: Expected: 07/25/2022 , Expires: 09/24/2022 Start: 07-15-2022 End: 08-14-2023 Radex sacrum & coccyx minimum 2 views XR SACRUM/COCCYX 3V AP/LAT Radiology STAT Acute midline low back pain without sciatica Expected: 07/15/2022, Expires: 08/14/2023 [facility] Work Phone: Comment on above: Expected: 07/15/2022 , Expires: 08/14/2023 Start: 07-15-2022 End: 08-14-2023 Radex spine lumbosacral 2/3 views XR LUMBAR GENERAL 3V AP/LAT/L5-S1 Radiology STAT Acute midline low back pain without sciatica Expected: 07/15/2022, Expires: 08/14/2023 [facility] Work Phone: Comment on above: Expected: 07/15/2022 , Expires: 08/14/2023 Start: 07-02-2022 Patient referral [facility] Work Phone: Start: 05-27-2022 [facility] Start: 02-19-2022 [facility] Work Phone: Start: 02-19-2022 Evaluation of diagno stic study results [facility] Work Phone: Start: 01-25-2022 Influenza vaccination INFLUENZA (#1) [facility] Start: 05-27-2021 DEPRESSION ASSESSMENT DEPRESSION ASS ESSMENT [facility] Start: 01-25-2021 COVID-19 VACCINE (3 - Booster for Pfizer series) COVID-19 VACCINE (3 - Booster for Pfizer series) [facility] Start: 10-20-2020 COVID-19 VACCINE (3 - Booster for Pfizer series) COVID-19 VACCINE (3 - Booster for Pfizer series) [facility] Start: 10-20-2020 COVID-19 VACCINE (3 - Pfizer series) COVID-19 VACCINE (3 - Pfizer series) [facility] Start: 05-26-2019 Adult depression scr eening assessment DEPRESSION SCREENING [facility] Start: 07-28-2014 HPV Vaccine (1 - 3-d ose SCDM series) HPV Vaccine (1 - 3-dose SCDM series) [facility] Start: 07-28-2005 HIV SCREENING [facility] Start: 07-28-2005 HIV screening [facility] Screening [facility] Anrct xm surg req an es general spi/edrl dx EXAM UNDER ANESTHESIA RECTAL [facility] End: 11-18-2024 Echocardiography ECHO Cardiology Routine Palpitations 1 Occurrences starting 11/19/2023 until 11/18/2024 [facility] Comment on above: 1 Occurrences starti ng 11/19/2023 until 11/18/2024 Evaluation of diagno stic study results [facility] Work Phone: End: 08-24-2023 Mri spinal canal lumbar w/o contrast material MRI LUMBAR SPINE WO [facility] Radiology Routine Radiculopathy of lumbar region Chronic midline low back pain with bilateral sciatica 1 Occurrences starting 07/25/2022 until 08/24/2023 [facility] Work Phone: Comment on above: 1 Occurrences starti ng 07/25/2022 until 08/24/2023 Patient Education ED Kidney Stone, Passed [facility] Work Phone: Patient referral [facility] Work Phone: Sphincterotomy anal division sphincter spx SPHINCTEROTOMY ANAL Anal fissure [facility] Immunizations Immunization Date Immunization Notes Care Provider Vincent alvarez 03-18-2024 influenza, seasonal, injectable Saroj Michel DO Work Phone: [facility] 03-18-2024 influenza virus vaccine, unspecified formulation Saroj Michel DO Work Phone: [facility] 03-04-2023 influenza, seasonal, injectable Frieda GUILLEN Work Phone: [facility] Work Phone: 03-04-2023 influenza virus vaccine, unspecified formulation Saroj Michel DO Work Phone: [facility] 02-19-2022 influenza, seasonal, injectable Saroj Michel DO Work Phone: [facility] Work Phone: 02-19-2022 influenza virus vaccine, unspecified formulation Saroj Michel DO Work Phone: [facility] 08-25-2020 Covid (Pfizer) Dr. Saroj Hurtado rrison Work Phone: [facility] 08-04-2020 Covid (Pfizer) Dr. Saroj Hurtado rrison Work Phone: [facility] 03-31-2018 influenza, seasonal, injectable Saroj Michel DO Work Phone: [facility] Work Phone: 02-19-2017 influenza, injectabl e, quadrivalent, contains preservative Saroj Michel DO Work Phone: [facility] 06-27-2016 tetanus toxoid, redu kelsey diphtheria toxoid, and acellular pertussis vaccine, adsorbed Saroj Michel DO Work Phone: [facility] Work Phone: 12-28-2015 hepatitis B vaccine, adult dosage Saroj Michel DO Work Phone: [facility] Work Phone: 09-30-2006 Meningococcal, MCV4, unspecified conjugate formulation(groups A, C, Y and W-135) Saroj Michel DO Work Phone: [facility] Work Phone: 11-25-2003 diphtheria and tetan us toxoids, adsorbed for pediatric use Saroj Michel DO Work Phone: [facility] Work Phone: 12-17-2001 hepatitis B vaccine, pediatric or pediatric/adolescent dosage Saroj Michel DO Work Phone: [facility] Work Phone: 02-10-2001 hepatitis B vaccine, pediatric or pediatric/adolescent dosage Saroj Michel DO Work Phone: [facility] Work Phone: 01-10-2001 hepatitis B vaccine, pediatric or pediatric/adolescent dosage Saroj Michel DO Work Phone: [facility] Work Phone: 01-10-2001 measles, mumps and rubella virus vaccine Saroj Michel DO Work Phone: [facility] Work Phone: 04-26-1998 influenza virus vaccine, whole virus Saroj Michel DO Work Phone: [facility] Work Phone: 01-12-1993 diphtheria, tetanus toxoids and acellular pertussis vaccine Saroj Michel DO Work Phone: [facility] Work Phone: 01-12-1993 poliovirus vaccine, inactivated Saroj Michel DO Work Phone: [facility] Work Phone: 05-27-1992 Chicken Pox (disease) Saroj Michel DO Work Phone: [facility] Work Phone: 04-26-1989 haemophilus influenz ae type b vaccine, HbOC conjugate Saroj Michel DO Work Phone: [facility] Work Phone: 11-29-1988 measles, mumps and rubella virus vaccine Saroj Michel DO Work Phone: [facility] Work Phone: 11-24-1988 diphtheria, tetanus toxoids and acellular pertussis vaccine Saroj Michel DO Work Phone: [facility] Work Phone: 11-24-1988 poliovirus vaccine, inactivated Saroj Michel DO Work Phone: [facility] Work Phone: 01-26-1988 diphtheria, tetanus toxoids and acellular pertussis vaccine Saroj Michel DO Work Phone: [facility] Work Phone: 1987 diphtheria, tetanus toxoids and acellular pertussis vaccine Saroj Michel DO Work Phone: [facility] Work Phone: 1987 poliovirus vaccine, inactivated Saroj Michel DO Work Phone: [facility] Work Phone: 1987 diphtheria, tetanus toxoids and acellular pertussis vaccine Saroj Michel DO Work Phone: [facility] Work Phone: 1987 poliovirus vaccine, inactivated Saroj Michel DO Work Phone: [facility] Work Phone: Payers Date Payer Category Payer Unknown MMO MMO [employer] PPO [id number] 2024-Present [phone] [address] [place] [address] PPO [id number] 2024 Unknown [id number] 2023 Self-pay [id number] 2019 Private Health Insurance AET[employer] A ETNA CHOICE POS II [id number] 2019-Present [phone] [address] [place] [address] POS [id number] 2019 Private Health Insurance [id number] 2019 Private Health Insurance [id number] Unknown [id number] Unknown [id number] 62 Unknown [id number] 2.16.840.1.681800.3.579.2.4 62 Unknown [id number] 2.16.840.1.405270.3.579.2.4 62 Unknown [id number] 2.16.840.1.358194.3.579.2.4 62 Unknown [id number] 2.16.840.1.115626.3.579.2.4 62 Unknown [id number] 2.16.840.1.374790.3.579.2.4 62 Unknown [id number] 2.16.840.1.545240.3.579.2.4 62 Unknown [id number] 2.16.840.1.637334.3.579.2.4 62 Unknown [id number] 2.16.840.1.234034.3.579.2.4 62 Unknown [id number] 2.16.840.1.747494.3.579.2.4 62 Unknown [id number] 2.16.840.1.707627.3.579.2.4 62 Unknown [id number] 2.16.840.1.995779.3.579.2.4 62 Unknown [id number] 2.16.840.1.701565.3.579.2.4 62 Unknown [id number] 2.16.840.1.612964.3.579.2.4 62 Unknown [id number] 2.16.840.1.064656.3.579.2.4 62 Unknown [id number] 2.16.840.1.859912.3.579.2.4 62 Unknown [id number] 2.16.840.1.822433.3.579.2.4 62 Unknown [id number] 2.16.840.1.669340.3.579.2.4 62 Unknown [id number] 2.16.840.1.721759.3.579.2.4 62 Unknown [id number] 2.16.840.1.787681.3.579.2.4 62 Unknown [id number] 2.16.840.1.886512.3.579.2.4 62 Unknown [id number] 2.16.840.1.401514.3.579.2.4 62 Unknown [id number] 2.16.840.1.083986.3.579.2.4 62 Unknown [id number] 2.16.840.1.457808.3.579.2.4 62 Unknown [id number] 2.16.840.1.099631.3.579.2.4 62 Unknown [id number] 2.16.840.1.438819.3.579.2.4 62 Unknown [id number] 2.16.840.1.150665.3.579.2.4 62 Unknown [id number] 2.16.840.1.950827.3.579.2.4 62 Social History Date Type Detail Facility Start: 09-06-2015 End: 04-17-2024 Tobacco smoking status NHIS Never smoked tobacco [facility] Work Phone: End: 05-27-2011 History of tobacco use Cigarette Smoker [facility] Work Phone: Start: 09-06-2015 End: 04-17-2024 Tobacco use and exposure User of smokeless tobacco [facility] Work Phone: History of tobacco use Chews Tobacco [facility] Work Phone: Start: 01-20-2021 End: 10-28-2024 Alcohol intake Current drinker of alcohol (finding) [facility] Start: 03-31-2020 End: 01-30-2022 History SDOH Alcohol Frequency 2 [facility] Start: 03-31-2020 End: 01-30-2022 History SDOH Alcohol Std Drinks 1 [facility] Start: 09-25-2014 History SDOH Alcohol Comment rare [facility] Start: 03-31-2020 End: 01-30-2022 History SDOH Social Connections Phone 4 [facility] Start: 03-31-2020 End: 01-30-2022 History SDOH Social Connections Get Together 3 [facility] Start: 03-31-2020 End: 01-30-2022 History SDOH Social Connections Living 8 [facility] Start: 03-31-2020 History SDOH Physical Activity DPW 5 [facility] Start: 03-31-2020 History SDOH Physical Activity MPS 6 [facility] Start: 03-31-2020 Education 17 [facility] Start: 09-06-2015 End: 07-15-2022 Tobacco Comment chews tobacco [facility] Start: 1985 Sex Assigned At Not on file [facility] Start: 11-28-2021 End: 07-26-2023 Tobacco smoking status NHIS Unknown if ever smoked [facility] Start: 1985 Sex Assigned At Male [facility] Start: 01-17-2022 End: 01-27-2022 Exposure to SARS-CoV-2 (event) Not sure [facility] Work Phone: Start: 01-30-2022 End: 05-08-2024 History of Social function [facility] Start: 01-30-2022 End: 05-08-2024 Social connection and isolation panel [facility] Start: 04-27-2012 Frequency of Social Gatherings with Friends and Family Not on file [facility] Work Phone: Do you belong to any clubs or organizations such as samaritan groups, unions, fraternal or athletic groups, or school groups? Yes [facility] Are you now , , , , never or living with a partner? [facility] How often to you hav e a drink containing alcohol? Monthly or less [facility] How often do you hav e 6 or more drinks on 1 occasion? Never [facility] Do you feel stress - tense, restless, nervous, or anxious, or unable to sleep at night because your mind is troubled all the time - these days [OSQ] Only a little [facility] (I/We) worried wheth er (my/our) food would run out before (I/we) got money to buy more. Never true [facility] In the past 12 month s, was there a time when you were not able to pay the mortgage or rent on time? No [facility] Start: 04-11-2021 Sexual orientation Heterosexual (finding) [facility] Do you feel stress - tense, restless, nervous, or anxious, or unable to sleep at night because your mind is troubled all the time - these days [OSQ] To some extent [facility] Goals Date Patient Goal Desired Activity /State Functional Status Date Assessment Result Facility 11-30-2014 Are you deaf, or do you have serious difficulty hearing No 11/30/2014 9:06 AM EDT Nancy Corcoran MA No [facility] 11-30-2014 Are you blind, or do you have serious difficulty seeing, even when wearing glasses No 11/30/2014 9:06 AM EDT Nancy Corcoran MA No [facility] 11-30-2014 Do you have serious difficulty walking or climbing stairs No 11/30/2014 9:06 AM EDT Nancy Corcoran MA No [facility] 11-30-2014 Do you have difficul ty dressing or bathing No 11/30/2014 9:06 AM EDT Nancy Corcoran MA No [facility] 11-30-2014 Because of a physica l, mental, or emotional condition, do you have difficulty doing errands alone such as visiting a physician's office or shopping No 11/30/2014 9:06 AM EDT Nilo WOL[facility] Mental Status Date Assessment Result Facility 11-30-2014 Because of a physica l, mental, or emotional condition, do you have serious difficulty concentrating, remembering, or making decisions No 11/30/2014 9:06 AM EDT Nancy [facility]WOL[facility] Clinical Notes 12-11-2021 to 02-03-2025 Telephone Encounter - Saroj Michel DO - 02/03/2025 8:00 PM EDTTelephone Encounter - Saroj Michel DO - 02/03/2025 8:00 PM Sybil Méndez APRN.CNP - 01/14/2025 11:39 AM EDT Note Date & Type Note Facility 02-03-2025 Telephone encounter Note The following approved medication requests have been transmitted electronically. Requested Prescriptions Signed Prescriptions Disp Refills atomoxetine (STRATTERA) 40 mg capsule 30 capsule 0 Sig: Take 1 capsule by mouth once daily. Authorizing Provider: SAROJ MICHEL DO [facility] 02-03-2025 Miscellaneous Notes The following approved medication requests have been transmitted electronically. Requested Prescriptions Signed Prescriptions Disp Refills atomoxetine (STRATTERA) 40 mg capsule 30 capsule 0 Sig: Take 1 capsule by mouth once daily. Authorizing Provider: SAROJ MICHEL DO Patient notified of provider recommendations. Patient is ok with provider sending prescription for Strattera to Pharmacy. Please send month supply to [facility]. Patient states that he will take the medication for a couple of weeks to see if it is working. Patient will then call office and request 90 day supply to be sent to [place]. Ana Lorenzo RN Message left for pt to call back. Shana Pacheco MA Please let him know that options would be strattera at 40 mg a day in AM or Qelbree at 200 mg a day in AM for non stimulant ADD/ADHD medication Saroj Michel DO Patient calls back and states that he has not done any form of tobacco for a couple of years. Patient states that he needs medication for his ADD. Patient had to stop the Vyvanse that he was taking. Patient was put on Wellbutrin for ADD. Patient discontinued it because of feeling severely depressed, agitated, and anxious. Patient is wanting to try something that is a non stimulant for his ADD. Patient asking if provider can prescribe him a different medication for his ADD? Please review and advise, Ana Lorenzo RN documented in this encounter [facility] 02-03-2025 Telephone encounter Note Patient notified of provider recommendations. Patient is ok with provider sending prescription for Strattera to Pharmacy. Please send month supply to [facility]. Patient states that he will take the medication for a couple of weeks to see if it is working. Patient will then call office and request 90 day supply to be sent to [facility]. Ana Lorenzo RN [facility] 02-03-2025 Telephone encounter Note Message left for pt to call back. Shana Pacheco MA [facility] 02-03-2025 Telephone encounter Note Please let him know that options would be strattera at 40 mg a day in AM or Qelbree at 200 mg a day in AM for non stimulant ADD/ADHD medication Saroj Michel DO [facility] 02-02-2025 Telephone encounter Note Pharmacy verified in [facility] Patient has been identified by name and date of : Yes Patient aware RX will be sent to pharmacy. No need to notify patient. Patient phones for refill(s): Requested Prescriptions Pending Prescriptions Disp Refills dextroamphetamine-amphetamine (ADDERALL) 20 mg tablet 60 tablet 0 Sig: Take 1 tablet by mouth two times a day for 30 days. In the afternoon as needed for focus/concentration Date of last office visit : 10/28/2024 Date of next office visit : 05/03/2025 Last 2 Encounter Wt Readings: Date: Wt: 01/14/2025 94.7 kg (208 lb 12.4 oz) 10/28/2024 94.8 kg (209 lb) Not applicable Please advise. Tasia Gillette MA [facility] 02-02-2025 Miscellaneous Notes Pharmacy verified in [facility] Patient has been identified by name and date of : Yes Patient aware RX will be sent to pharmacy. No need to notify patient. Patient phones for refill(s): Requested Prescriptions Pending Prescriptions Disp Refills dextroamphetamine-amphetamine (ADDERALL) 20 mg tablet 60 tablet 0 Sig: Take 1 tablet by mouth two times a day for 30 days. In the afternoon as needed for focus/concentration Date of last office visit : 10/28/2024 Date of next office visit : 05/03/2025 Last 2 Encounter Wt Readings: Date: Wt: 01/14/2025 94.7 kg (208 lb 12.4 oz) 10/28/2024 94.8 kg (209 lb) Not applicable Please advise. Tasia Gillette MA documented in this encounter [facility] 01-26-2025 Telephone encounter Note Patient calls back and states that he has not done any form of tobacco for a couple of years. Patient states that he needs medication for his ADD. Patient had to stop the Vyvanse that he was taking. Patient was put on Wellbutrin for ADD. Patient discontinued it because of feeling severely depressed, agitated, and anxious. Patient is wanting to try something that is a non stimulant for his ADD. Patient asking if provider can prescribe him a different medication for his ADD? Please review and advise, Ana Lorenzo RN [facility] 01-14-2025 Note HNO ID: [id number] Author: SYBIL MIKE APRN.PAINTING TECHNICIAN Service: ? Author Type: Nurse Practitioner Type: Progress Notes Filed: 01/14/2025 11:42 Note Text: [facility] BOO Barber is a 39 year old male. Patient presents with: Ear Problem: Left ear pain, also dried blood in ear x 2 days HPI Patient presents today complaining of an irritation/fullness sensation in his left ear which has been ongoing for the last several weeks. Patient does note that over the last week or so he has been noticing some dried blood in the ear canal when he uses a Q-tip. Patient has a history of traumatic brain injury while he was in the [employer] a number of years ago and had bleeding in his ear at that time and is concerned that he might have a ruptured eardrum or some other trauma to the ear. Patient otherwise denies any fever cough congestion or trauma to his ear. Review of Systems As above Objective BP 140/102 Pulse 83 Temp 36.8 ?C (98.3 ?F) Resp 19 Wt 94.7 kg (208 lb 12.4 oz) SpO2 95% BMI 33.16 kg/m? Physical Exam Vitals and nursing note reviewed. Constitutional: General: He is not in acute distress. Appearance: Normal appearance. He is not ill-appearing. HENT: Head: Normocephalic. Right Ear: Tympanic membrane and ear canal normal. Left Ear: Tympanic membrane normal. Ears: Comments: At the 11 o'clock position in the mid left ear canal there is an area of excoriated/irritated skin. Pulmonary: Effort: Pulmonary effort is normal. Musculoskeletal: General: Normal range of motion. Skin: General: Skin is warm. Neurological: General: No focal deficit present. Mental Status: He is alert and oriented to person, place, and time. Psychiatric: Mood and Affect: Mood normal. Behavior: Behavior normal. {ASSESSMENT/PLAN: 1. Irritation of left ear - ICD9: 388.8, ICD10: H93.8X2 -Discussed with patient that there is no sign of rupture of the tympanic membrane or trauma to the left ear canal however there was an area of irritated/excoriated skin. Patient does admit to using Q-tips frequently and I discussed with him he should avoid doing this to avoid further irritation of the ear. Area does not look fungal as the skin is not boggy surrounding the area. Patient was started on Ciprodex eardrops for symptomatic relief and patient was instructed to follow-up with PCP or ENT if symptoms do not improve - CIPROFLOXACIN 0.3 %-DEXAMETHASONE 0.1 % EAR DROPS,SUSPENSION Sybil Mike APRN.PAINTING TECHNICIAN Management Management of the patient was discussed with:other (see comment) Discussion with other healthcare resource(s) included: Nurse practitioner in office Disposition The patient was discharged. Procedures [facility] 01-14-2025 History of Present illness Narrative [facility]OO Subjective Marian Barber is a 39 year old male. Patient presents with: Ear Problem: Left ear pain, also dried blood in ear x 2 days HPI Patient presents today complaining of an irritation/fullness sensation in his left ear which has been ongoing for the last several weeks. Patient does note that over the last week or so he has been noticing some dried blood in the ear canal when he uses a Q-tip. Patient has a history of traumatic brain injury while he was in the [employer] a number of years ago and had bleeding in his ear at that time and is concerned that he might have a ruptured eardrum or some other trauma to the ear. Patient otherwise denies any fever cough congestion or trauma to his ear. Review of Systems As above Objective BP 140/102 Pulse 83 Temp 36.8 C (98.3 F) Resp 19 Wt 94.7 kg (208 lb 12.4 oz) SpO2 95% BMI 33.16 kg/m Physical Exam Vitals and nursing note reviewed. Constitutional: General: He is not in acute distress. Appearance: Normal appearance. He is not ill-appearing. HENT: Head: Normocephalic. Right Ear: Tympanic membrane and ear canal normal. Left Ear: Tympanic membrane normal. Ears: Comments: At the 11 o'clock position in the mid left ear canal there is an area of excoriated/irritated skin. Pulmonary: Effort: Pulmonary effort is normal. Musculoskeletal: General: Normal range of motion. Skin: General: Skin is warm. Neurological: General: No focal deficit present. Mental Status: He is alert and oriented to person, place, and time. Psychiatric: Mood and Affect: Mood normal. Behavior: Behavior normal. {ASSESSMENT/PLAN: 1. Irritation of left ear - ICD9: 388.8, ICD10: H93.8X2 -Discussed with patient that there is no sign of rupture of the tympanic membrane or trauma to the left ear canal however there was an area of irritated/excoriated skin. Patient does admit to using Q-tips frequently and I discussed with him he should avoid doing this to avoid further irritation of the ear. Area does not look fungal as the skin is not boggy surrounding the area. Patient was started on Ciprodex eardrops for symptomatic relief and patient was instructed to follow-up with PCP or ENT if symptoms do not improve - CIPROFLOXACIN 0.3 %-DEXAMETHASONE 0.1 % EAR DROPS,SUSPENSION Sybil Mike APRN.CNP Management Management of the patient was discussed with:other (see comment) Discussion with other healthcare resource(s) included: Nurse practitioner in office Disposition The patient was discharged. Procedures documented in this encounter [facility] 01-14-2025 Telephone encounter Note Contacted patient, he declined to schedule an appointment, stating he and Dr. Michel had a plan, He will send another Hartman Wright message. Anna Malone [facility] Work Phone: 01-14-2025 Miscellaneous Notes Contacted patient, he declined to schedule an appointment, stating he and Dr. Michel had a plan, He will send another Hartman Wright message. Anna Malone Needs appointment to discuss and prescribe medications. Thank you, Hien Rivas APRN.PAINTING TECHNICIAN Good afternoon Dr. Michel, I wanted to send you a message to inform you that I have stopped taking the Wellbutrin that you prescribed last visit. It was making me severely depressed, agitated, and anxious. I am currently just taking the rest of the Adderall I had left, but I only have enough for another week. I m not sure what you want to try next. Thank you for your help. documented in this encounter [facility] 01-14-2025 Telephone encounter Note Needs appointment to discuss and prescribe medications. Thank you, Hien Rivas APRN.PAINTING TECHNICIAN [facility] 01-11-2025 Telephone encounter Note See telephone note [facility] 01-11-2025 Miscellaneous Notes See telephone note documented in this encounter [facility] 01-11-2025 Telephone encounter Note Good afternoon Dr. Michel, I wanted to send you a message to inform you that I have stopped taking the Wellbutrin that you prescribed last visit. It was making me severely depressed, agitated, and anxious. I am currently just taking the rest of the Adderall I had left, but I only have enough for another week. I m not sure what you want to try next. Thank you for your help. [facility] 11-23-2024 Radiology Diagnostic study note Imaging Services [address] [place], [place] [id number] Foot min 3 Views MR#: [id number] Acct: [id number] Name: MARIAN BARBER Rep #: [id number] : 1985 M 39 From: Jaxson Schmidt MD PCP: Dr. Saroj Michel, DO Status: RE G CLI Study:Foot min 3 Views Date of Exam: Exam# [id number] Ordering Dr: St swati Langston PROCEDURE: FOOT MIN 3 VIEWS 11/23/2024 REASON FOR EXAM: 1ST MTP PAIN TECHNIQUE: Three-view right foot series COMPARISON: None. RAD/Foot min 3 Views IMPRESSION: And lateral imaging, a moderate posterior calcaneal enthesophyte is noted. Normal contour of the Achilles tendon is noted. Minimal degenerative changes are seen of the right 1st metatarsophalangeal joint, without significant joint narrowing or hallux valgus deformity. No evidence of inflammatory arthritis. No fracture or dislocation is noted. Reading Location: [place] [address] CC: Dr. Saroj Michel DO; WILMER Caal ~ Vocational Nursing Instructor: Signed [facility] 10-28-2024 Note HNO ID: [id number] Author: SAROJ MICHEL DO Service: ? Author Type: Physician Type: Progress Notes Filed: 10/28/2024 13:58 Note Text: CC: Marian Barber is a 39 year old male who presents to the office for physical HPI: ADD, long standing, has been taking the vyvanse 70 mg and then later the Adderall 20 mg short acting. 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 He would like to try something different that is a non stimulant to see if this benefits him Last year he was diagnosed with rectal fissure. Saw a colorectal specialist in Apr 2024 and had procedure at [facility] main campus 05/21/2024 with resolution of symptoms. No topical medications or rectal Botox which was done on 03/27 at [facility] by Dr. 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 Aguayo and treated with budesonide He has been able to quit oral use of tobacco 2 years ago. 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 [place] IED; Residual headache, hearing loss, vision dominguez PAST SURGICAL HISTORY Procedure Laterality Date PAST SURGICAL HISTORY OF botox for fissure VASECTOMY UNI/BI SPX W/POSTOP SEMEN EXAMS Social History: Social History Tobacco Use Smoking status: Never Smokeless tobacco: Current Types: Chew Tobacco comments: chews tobacco Substance Use Topics Alcohol use: Yes Comment: rare FAMILY HISTORY Problem Relation Age of Onset Lymphoma Mother 49 Heart Maternal Grandmother [place], CHF other (lupus) Maternal Grandmother Diabetes Maternal Grandfather Alzheimer's Disease Paternal Grandfather dementia Heart Paternal Grandfather Kidney Disease Paternal Grandfather other (healthy) Daughter other (healthy) Son gerd Colon Cancer No Family History Rectal Cancer No Family History Current Outpatient prescriptions: SUMAtriptan (IMITREX) 100 mg tablet Take 1 tablet by mouth as needed. take at onset of migraine, May repeat in 1 hour if needed. limit 2 doses in 24 hours. RABEprazole (ACIPHEX) 20 mg tablet Take 1 tablet by mouth once daily. buPROPion (WELLBUTRIN) 100 mg tablet Take 1 tablet by mouth once daily. In the morning lisdexamfetamine (VYVANSE) 70 mg capsule Take 1 capsule by mouth once daily for 30 days. Patient should start on October 19, 2024. dextroamphetamine-amphetamine (ADDERALL) 20 mg tablet Take 1 tablet by mouth two times a day for 30 days. In the afternoon as needed for focus/concentration Patient should start on October 15, 2024. acetaminophen (TYLENOL EXTRA STRENGTH) 500 mg tablet Take 2 tablets by mouth every 6 hours as needed for pain. ibuprofen (MOTRIN IB) 200 mg tablet Take 1 tablet by mouth three times a day as needed for pain. for pain, with food. polyethylene glycol 3350 (MIRALAX) 17 gram/dose powder Take 17 g by mouth once daily. Dissolve dose in 4 - 8 ounces of liquid and take as directed. budesonide, enteric coated (ENTOCORT EC) 3 mg 24 hr capsule once daily. tiZANidine (ZANAFLEX) 4 mg tablet Take 1 tablet by mouth every 8 hours as needed (muscle spasm low back). (Patient not taking: Reported on 04/17/2024) Allergies: ALLERGIES Allergen Reactions Amoxicillin Hives Septra Ds [Sulfamet* Hives ROS: See HPI PE: 10/28/24 1248 BP: 134/88 Pulse: 80 Resp: 12 Temp: 36.7 ?C (98 ?F) TempSrc: Right Tympanic Weight: 94.8 kg (209 lb) Height: 169 cm (5' 6.54) Gen: AANDO, NAD, non-toxic appearing, Pleasant, cooperative HEENT: NT/AC, PERRLA, EOMs intact b/l, nares clear and patent b/l, pharynx without erythema, exudate or lesions. Uvula midline. EACs without erythema or debris. TMs pearly [...] No rashes or lesions on exposed skin. Central overweight ASSESSMENT/PLAN: 1. Well adult exam - ICD9: V70.0, ICD10: Z00.00 (primary diagnosis) - Counseled on healthy diet and regular exercise - Discussed need for and benefit of weight loss. BMI 33.19 kg/(m2) 2. Headaches due to old head injury - ICD9: 339.20, 908.9, ICD10: G44.309, S09.90XS rx refilled stable - SUMATRIPTAN 100 MG TABLET 3. Gastroesophageal reflux disease with (more content not included)... [facility] 10-28-2024 History of Present illness Narrative CC: Marian Barber is a 39 year old male who presents to the office for physical HPI: ADD, long standing, has been taking the vyvanse 70 mg and then later the Adderall 20 mg short acting. 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 He would like to try something different that is a non stimulant to see if this benefits him Last year he was diagnosed with rectal fissure. Saw a colorectal specialist in Apr 2024 and had procedure at [facility] main campus 05/21/2024 with resolution of symptoms. No topical medications or rectal Botox which was done on 03/27 at [facility] by Dr. 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 Aguayo and treated with budesonide He has been able to quit oral use of tobacco 2 years ago. 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 [facility] IED; Residual headache, hearing loss, vision dominguez PAST SURGICAL HISTORY Procedure Laterality Date PAST SURGICAL HISTORY OF botox for fissure VASECTOMY UNI/BI SPX W/POSTOP SEMEN EXAMS Social History: Social History Tobacco Use Smoking status: Never Smokeless tobacco: Current Types: Chew Tobacco comments: chews tobacco Substance Use Topics Alcohol use: Yes Comment: rare FAMILY HISTORY Problem Relation Age of Onset Lymphoma Mother 49 Heart Maternal Grandmother [place], CHF other (lupus) Maternal Grandmother Diabetes Maternal Grandfather Alzheimer's Disease Paternal Grandfather dementia Heart Paternal Grandfather Kidney Disease Paternal Grandfather other (healthy) Daughter other (healthy) Son gerd Colon Cancer No Family History Rectal Cancer No Family History Current Outpatient prescriptions: SUMAtriptan (IMITREX) 100 mg tablet Take 1 tablet by mouth as needed. take at onset of migraine, May repeat in 1 hour if needed. limit 2 doses in 24 hours. RABEprazole (ACIPHEX) 20 mg tablet Take 1 tablet by mouth once daily. buPROPion (WELLBUTRIN) 100 mg tablet Take 1 tablet by mouth once daily. In the morning lisdexamfetamine (VYVANSE) 70 mg capsule Take 1 capsule by mouth once daily for 30 days. Patient should start on October 19, 2024. dextroamphetamine-amphetamine (ADDERALL) 20 mg tablet Take 1 tablet by mouth two times a day for 30 days. In the afternoon as needed for focus/concentration Patient should start on October 15, 2024. acetaminophen (TYLENOL EXTRA STRENGTH) 500 mg tablet Take 2 tablets by mouth every 6 hours as needed for pain. ibuprofen (MOTRIN IB) 200 mg tablet Take 1 tablet by mouth three times a day as needed for pain. for pain, with food. polyethylene glycol 3350 (MIRALAX) 17 gram/dose powder Take 17 g by mouth once daily. Dissolve dose in 4 - 8 ounces of liquid and take as directed. budesonide, enteric coated (ENTOCORT EC) 3 mg 24 hr capsule once daily. tiZANidine (ZANAFLEX) 4 mg tablet Take 1 tablet by mouth every 8 hours as needed (muscle spasm low back). (Patient not taking: Reported on 04/17/2024) Allergies: ALLERGIES Allergen Reactions Amoxicillin Hives Septra Ds [Sulfamet* Hives ROS: See HPI PE: 10/28/24 1248 BP: 134/88 Pulse: 80 Resp: 12 Temp: 36.7 C (98 F) TempSrc: Right Tympanic Weight: 94.8 kg (209 lb) Height: 169 cm (5' 6.54) Gen: A&O, NAD, non-toxic appearing, Pleasant, cooperative HEENT: NT/AC, PERRLA, EOMs intact b/l, nares clear and patent b/l, pharynx without erythema, exudate or lesions. Uvula midline. EACs without erythema or debris. TMs pearly [...] No rashes or lesions on exposed skin. Central overweight ASSESSMENT/PLAN: 1. Well adult exam - ICD9: V70.0, ICD10: Z00.00 (primary diagnosis) - Counseled on healthy diet and regular exercise - Discussed need for and benefit of weight loss. BMI 33.19 kg/(m^2) 2. Headaches due to old head injury - ICD9: 339.20, 908.9, ICD10: G44.309, S09.90XS rx refilled stable - SUMATRIPTAN 100 MG TABLET 3. Gastroesophageal reflux disease without esophagitis - ICD9: 530.81, ICD10: K21.9 - Discussed lifestyle modifications including losing weight, limiting caffeine, no meals three hours before sleep, and head of bed elevation - RABEPRAZOLE 20 MG TABLET,DELAYED RELEASE 4. Attention deficit disorder (ADD) in adult - ICD9: 314.00, ICD10: F98.8 Trial of wellbutrin in the AM Can increase dose of wellburin if needed Can still take adderall short acting if needed as d/w him todday - BUPROPION HCL 100 MG TABLET 5. Anal fissure - ICD9: 565.0, ICD10: K60.2 Healed well after procedure Saroj Michel DO To ER if develops chest pain, shortness of breath, or severe worsening of symptoms. Discussed risks, benefits, alternatives, and potential side effects of medications. Patient expressed understanding and agreed with the plan. Saroj Michel DO [address] [place] [address] documented in this encounter [facility] 08-19-2024 Telephone encounter Note PDMP website checked and validated. All prescriptions have been APPROPRIATELY filled. No suspicious activity was identified. 08/19/2024 by Hien Rivas APRN.CNP The following approved medication requests have been transmitted electronically. Requested Prescriptions Signed Prescriptions Disp Refills lisdexamfetamine (VYVANSE) 70 mg capsule 30 capsule 0 Sig: Take 1 capsule by mouth once daily for 30 days. Authorizing Provider: HIEN RIVAS APRN.CNP [facility] 08-19-2024 Miscellaneous Notes PDMP website checked and validated. All prescriptions have been APPROPRIATELY filled. No suspicious activity was identified. 08/19/2024 by Hien Rivas APRN.CNP The following approved medication requests have been transmitted electronically. Requested Prescriptions Signed Prescriptions Disp Refills lisdexamfetamine (VYVANSE) 70 mg capsule 30 capsule 0 Sig: Take 1 capsule by mouth once daily for 30 days. Authorizing Provider: HIEN RIVAS APRN.CNP Prescription Refill Information The patient has been identified by name and date of : Yes Caregiver verified no other encounters exist for this prescription request: Yes Caregiver confirmed with patient/requestor that no other refills are due, in the near future, with this provider at this time: Yes The last office visit in the department: 05/08/24 Does the patient have a future office visit with this provider/department: Yes 10/28/24 Requested Prescriptions Pending Prescriptions Disp Refills lisdexamfetamine (VYVANSE) 70 mg capsule 30 capsule 0 Sig: Take 1 capsule by mouth once daily for 30 days. Emelia Thapa LPN August 19, 2024 4:07 PM documented in this encounter [facility] 08-19-2024 Telephone encounter Note PDMP website checked and validated. All prescriptions have been APPROPRIATELY filled. No suspicious activity was identified. 08/19/2024 by Hien Rivas APRN.JASMINA The following approved medication requests have been transmitted electronically. Requested Prescriptions Signed Prescriptions Disp Refills dextroamphetamine-amphetamine (ADDERALL) 20 mg tablet 60 tablet 0 Sig: Take 1 tablet by mouth two times a day for 30 days. In the afternoon as needed for focus/concentration Authorizing Provider: HIEN RIVAS dextroamphetamine-amphetamine (ADDERALL) 20 mg tablet 60 tablet 0 Sig: Take 1 tablet by mouth two times a day for 30 days. In the afternoon as needed for focus/concentration Patient should start on September 18, 2024. Authorizing Provider: HIEN RIVAS dextroamphetamine-amphetamine (ADDERALL) 20 mg tablet 60 tablet 0 Sig: Take 1 tablet by mouth two times a day for 30 days. In the afternoon as needed for focus/concentration Patient should start on October 15, 2024. Authorizing Provider: HIEN RIVAS APRN.CNP [facility] 08-19-2024 Miscellaneous Notes PDMP website checked and validated. All prescriptions have been APPROPRIATELY filled. No suspicious activity was identified. 08/19/2024 by Hien Rivas APRN.CNP The following approved medication requests have been transmitted electronically. Requested Prescriptions Signed Prescriptions Disp Refills dextroamphetamine-amphetamine (ADDERALL) 20 mg tablet 60 tablet 0 Sig: Take 1 tablet by mouth two times a day for 30 days. In the afternoon as needed for focus/concentration Authorizing Provider: HIEN RIVAS dextroamphetamine-amphetamine (ADDERALL) 20 mg tablet 60 tablet 0 Sig: Take 1 tablet by mouth two times a day for 30 days. In the afternoon as needed for focus/concentration Patient should start on September 18, 2024. Authorizing Provider: HIEN RIVAS dextroamphetamine-amphetamine (ADDERALL) 20 mg tablet 60 tablet 0 Sig: Take 1 tablet by mouth two times a day for 30 days. In the afternoon as needed for focus/concentration Patient should start on October 15, 2024. Authorizing Provider: HIEN RIVAS APRN.CNP Prescription Refill Information The patient has been identified by name and date of : Yes Caregiver verified no other encounters exist for this prescription request: Yes Caregiver confirmed with patient/requestor that no other refills are due, in the near future, with this provider at this time: Yes The last office visit in the department: 05/08/24 Does the patient have a future office visit with this provider/department: Yes 10/28/24 Pt stated he needs 3 months to [facility]. Requested Prescriptions Pending Prescriptions Disp Refills dextroamphetamine-amphetamine (ADDERALL) 20 mg tablet 60 tablet 0 Sig: Take 1 tablet by mouth two times a day for 30 days. In the afternoon as needed for focus/concentration dextroamphetamine-amphetamine (ADDERALL) 20 mg tablet 60 tablet 0 Sig: Take 1 tablet by mouth two times a day for 30 days. In the afternoon as needed for focus/concentration dextroamphetamine-amphetamine (ADDERALL) 20 mg tablet 60 tablet 0 Sig: Take 1 tablet by mouth two times a day for 30 days. In the afternoon as needed for focus/concentration Emelia Thapa LPN August 19, 2024 4:10 PM documented in this encounter [facility] 08-19-2024 Telephone encounter Note Prescription Refill Information The patient has been identified by name and date of : Yes Caregiver verified no other encounters exist for this prescription request: Yes Caregiver confirmed with patient/requestor that no other refills are due, in the near future, with this provider at this time: Yes The last office visit in the department: 05/08/24 Does the patient have a future office visit with this provider/department: Yes 10/28/24 Pt stated [facility] Requested Prescriptions Pending Prescriptions Disp Refills dextroamphetamine-amphetamine (ADDERALL) 20 mg tablet 60 tablet 0 Sig: Take 1 tablet by mouth two times a day for 30 days. In the afternoon as needed for focus/concentration dextroamphetamine-amphetamine (ADDERALL) 20 mg tablet 60 tablet 0 Sig: Take 1 tablet by mouth two times a day for 30 days. In the afternoon as needed for focus/concentration dextroamphetamine-amphetamine (ADDERALL) 20 mg tablet 60 tablet 0 Sig: Take 1 tablet by mouth two times a day for 30 days. In the afternoon as needed for focus/concentration Emelia Thapa LPN August 19, 2024 4:10 PM [facility] 08-19-2024 Telephone encounter Note Prescription Refill Information The patient has been identified by name and date of : Yes Caregiver verified no other encounters exist for this prescription request: Yes Caregiver confirmed with patient/requestor that no other refills are due, in the near future, with this provider at this time: Yes The last office visit in the department: 05/08/24 Does the patient have a future office visit with this provider/department: Yes 10/28/24 Requested Prescriptions Pending Prescriptions Disp Refills lisdexamfetamine (VYVANSE) 70 mg capsule 30 capsule 0 Sig: Take 1 capsule by mouth once daily for 30 days. 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 Rose Marie Leone RN [facility]01-17-2025 Miscellaneous Notes* Telephone Encounter - Rose Marie Leone RN - 06/12/2024 3:52 PM EST Call placed to patient and message left on identified voicemail that prescription had been sent as requested and to call back if any further questions. Rose Marie Leone RN * Telephone Encounter - Luis Alfredo Olivera APRN.JASMINA - 06/12/2024 1:51 PM EST The following approved medication requests have been transmitted electronically. Requested Prescriptions Signed Prescriptions Disp Refills lisdexamfetamine (VYVANSE) 70 mg capsule 30 capsule 0 Sig: Take 1 capsule by mouth once daily for 30 days. Authorizing Provider: LUIS ALFREDO OLIVERA APRN.CNP PDMP website checked and validated. All prescriptions have been APPROPRIATELY filled. No suspiciousactivity was identified. 06/12/2024 by Luis Alfredo Olivera CNP. * Telephone Encounter - Rose Marie Leone RN - 06/12/2024 12:09 PM EST The patient has been identified by name and date of : Yes Caregiver verified no other encounters exist for this prescription request: Yes Caregiver confirmed with patient/requestor that no other refills are due, in the near future, with this provider at this time: Yes The last office visit in the department: 05/08/2024 Does the patient have a future office visit with this provider/department: 10/28/2024 Requested Prescriptions Pending Prescriptions Disp Refills lisdexamfetamine (VYVANSE) 70 mg capsule 30 capsule 0 Sig: Take 1 capsule by mouth once daily for 30 days. Patient is not able to get V[facility]se from [facility]. Asking for this months dose to go to [facility]. Patient verified that medication is available. Rose Marie Leone RN June 12, 2024 12:09 PM [facility] Telephone encounter Note * Telephone Encounter - Luis Alfredo Olivera APRN.CNP - 06/12/2024 1:51 PM EST The following approved medication requests have been transmitted electronically. Requested Prescriptions Signed Prescriptions Disp Refills lisdexamfetamine (VYVANSE) 70 mg capsule 30 capsule 0 Sig: Take 1 capsule by mouth once daily for 30 days. Authorizing Provider: LUIS ALFREDO OLIVERA APRN.CNP PDM website checked and validated. All prescriptions have been APPROPRIATELY filled. No suspiciousactivity was identified. 06/12/2024 by Luis Alfredo Olivera CNP. [facility]01-17-2025 Telephone encounter Note* Telephone Encounter - Rose Marie Leone RN - 06/12/2024 12:09 PM EST The patient has been identified by name and date of : Yes Caregiver verified no other encounters exist for this prescription request: Yes Caregiver confirmed with patient/requestor that no other refills are due, in the near future, with this provider at this time: Yes The last office visit in the department: 05/08/2024 Does the patient have a future office visit with this provider/department: 10/28/2024 Requested Prescriptions Pending Prescriptions Disp Refills lisdexamfetamine (VYVANSE) 70 mg capsule 30 capsule 0 Sig: Take 1 capsule by mouth once daily for 30 days. Patient is not able to get Vyvanse from [facility]. Asking for this months dose to go to [facility]. Patient verified that medication is available. Rose Marie Leone RN June 12, 2024 12:09 PM [facility]01-08-2025 NoteHNO ID: [id number] Author: CRIS SANDHU MD Service: ? Author Type: Physician Type: Progress Notes Filed: 06/03/2024 13:57 Note Text: COLORECTAL SURGERY VIRTUAL VISIT FOLLOW UP I have communicated my name and active licensure. The patient's identity and physical location were verified at the time of this visit. Either the patient or their legal banking representative has been informed of the risks and benefits of -- and alternatives to -- treatment through a remote evaluation and consents to proceed with the evaluation remotely. I had a virtual visit with Mr. Barber today for follow up of after EUA with lateral sphincterotomy 2 weeks ago. UPDATED HISTORY: Marian Barber is a 38-year-old male with a history of chronic anal fissure, status post lateral sphincterotomy. He reports feeling well and has experienced no pain since the surgery. He continues to have mild spotting but is able to pass bowel movements without pain. He denies any symptoms of incontinence to gas or stool. PHYSICAL FINDINGS OF NOTE: General - Normal, healthy, cooperative, in no acute distress Able to interact verbally by video conference Pulmonary - respiratory effort normal Medical Decision Making: Assessment Assessment AND Diagnosis: Marian Barber is a 38 year old male with good recovery after recent EUA with lateral sphincterotomy Data Reviewed: Tests AND Documents Reviewed/ordered: Review of prior operative reports I have independently interpreted: none I have discussed Marian Barber's treatment plan and/or results with the patient. Treatment plan: Continue using bowel softeners and fiber supplements RTC as needed Risk of morbidity, mortality and/or complications of treatment plan: low I spent a total of 20 minutes on the date of the service which included preparing to see the patient, completing clinical documentation, obtaining and/or reviewing separately obtained history, and counseling and educating the patient/family/caregiver.[facility]01-08-2025 History of Present illness Narrative* Cris Sandhu MD - 06/03/2024 1:52 PM EST COLORECTAL SURGERY VIRTUAL VISIT FOLLOW UP I have communicated my name and active licensure. The patient's identity and physical location wereverified at the time of this visit. Either the patient or their legal banking representative has been informed of the risks and benefits of -- and alternatives to -- treatment through a remote evaluation andconsents to proceed with the evaluation remotely. I had a virtual visit with Mr. Barber today for follow up of after EUA with lateral sphincterotomy 2 weeks ago. UPDATED HISTORY: Marian Barber is a 38-year-old male with a history of chronic anal fissure, status post lateral sphincterotomy. He reports feeling well and has experienced no pain since the surgery. He continues to have mild spotting but is able to pass bowel movements without pain. He denies any symptoms of incontinence to gas or stool. PHYSICAL FINDINGS OF NOTE: General - Normal, healthy, cooperative, in no acute distress Able to interact verbally by video conference Pulmonary - respiratory effort normal Medical Decision Making: Assessment Assessment & Diagnosis: Marian Barber is a 38 year old male with good recovery after recent EUA with lateral sphincterotomy Data Reviewed: Tests & Documents Reviewed/ordered: Review of prior operative reports I have independently interpreted: none I have discussed Marian Barber's treatment plan and/or results with the patient. Treatment plan: Continue using bowel softeners and fiber supplements RTC as needed Risk of morbidity, mortality and/or complications of treatment plan: low I spent a total of 20 minutes on the date of the service which included preparing to see the patient, completing clinical documentation, obtaining and/or reviewing separately obtained history, and counseling and educating the patient/family/caregiver. [facility] Telephone encounter Note * Telephone Encounter - Altagracia Quevedo LPN - 06/02/2024 8:43 AM EST Pt called and prescriptions below he is requesting they be sent to [facility]. They will no longer be covered by [facility]. The patient has been identified by name and date of : Yes Caregiver verified no other encounters exist for this prescription request: Yes Caregiver confirmed with patient/requestor that no other refills are due, in the near future, with this provider at this time: Yes The last office visit in the department: 05/08/2024 Does the patient have a future office visit with this provider/department: Yes 10/28/2024 Requested Prescriptions Pending Prescriptions Disp Refills dextroamphetamine-amphetamine (ADDERALL) 20 mg tablet 60 tablet 0 Sig: Take 1 tablet by mouth two times a day for 30 days. In the afternoon as needed for focus/concentration Patient should start on July 08, 2024. dextroamphetamine-amphetamine (ADDERALL) 20 mg tablet 60 tablet 0 Sig: Take 1 tablet by mouth two times a day for 30 days. In the afternoon as needed for focus/concentration Patient should start on June 09, 2024. lisdexamfetamine (VYVANSE) 70 mg capsule 30 capsule 0 Sig: Take 1 capsule by mouth once daily for 30 days. Patient should start on July 08, 2024. lisdexamfetamine (VYVANSE) 70 mg capsule 30 capsule 0 Sig: Take 1 capsule by mouth once daily for 30 days. Patient should start on June 09, 2024. RABEprazole (ACIPHEX) 20 mg tablet 90 tablet 1 Sig: Take 1 tablet by mouth once daily. Altagracia Quevedo LPN June 02, 2024 8:48 AM [facility]01-07-2025 Miscellaneous Notes* Telephone Encounter - Altagracia Quevedo LPN - 06/02/2024 8:43 AM EST Pt called and prescriptions below he is requesting they be sent to [facility]. They will no longer be covered by [facility]. The patient has been identified by name and date of : Yes Caregiver verified no other encounters exist for this prescription request: Yes Caregiver confirmed with patient/requestor that no other refills are due, in the near future, with this provider at this time: Yes The last office visit in the department: 05/08/2024 Does the patient have a future office visit with this provider/department: Yes 10/28/2024 Requested Prescriptions Pending Prescriptions Disp Refills dextroamphetamine-amphetamine (ADDERALL) 20 mg tablet 60 tablet 0 Sig: Take 1 tablet by mouth two times a day for 30 days. In the afternoon as needed for focus/concentration Patient should start on July 08, 2024. dextroamphetamine-amphetamine (ADDERALL) 20 mg tablet 60 tablet 0 Sig: Take 1 tablet by mouth two times a day for 30 days. In the afternoon as needed for focus/concentration Patient should start on June 09, 2024. lisdexamfetamine (VYVANSE) 70 mg capsule 30 capsule 0 Sig: Take 1 capsule by mouth once daily for 30 days. Patient should start on July 08, 2024. lisdexamfetamine (VYVANSE) 70 mg capsule 30 capsule 0 Sig: Take 1 capsule by mouth once daily for 30 days. Patient should start on June 09, 2024. RABEprazole (ACIPHEX) 20 mg tablet 90 tablet 1 Sig: Take 1 tablet by mouth once daily. Altagracia Quevedo LPN June 02, 2024 8:48 AM documented in this encounterVan [facility]01-[facility]25 Telephone encounter Note * Telephone Encounter - Esha Lagos - 06/01/2024 11:51 AM EST Marian Goldsmithb [phone], says RTW form was blank when return to employer. Also, he ask if he should return to work while still having drainage/discharge. [facility] Work Phone: 1(621) 100-428301-06-2025 Miscellaneous Notes* Telephone Encounter - Esha Lagos - 06/01/2024 11:51 AM EST Marian Nguyễn Sunil [phone], says RTW form was blank when return to employer. Also, he ask if he should return to work while still having drainage/discharge. documented in this encounterVan [facility]12-26-2024 NoteHNO ID: [id number] Author: BRANDO BRITTON APRN.ANIMAL TRAPPER Service: ? Author Type: Nurse Green Belt Type: Anesthesia Procedure Notes Filed: 05/21/2024 14:04 Note Text: ANESTHESIOLOGY PROCEDURE NOTE Airway General Information Procedure Start Time/Medication Administration: 05/21/2024 1:58 PM Procedure End Time: 05/21/2024 1:58 PM Patient location during procedure: OR Timeout Performed Pre-procedure: timeout performed Consent Obtained: Yes Patient identity confirmed: arm band, care felt hat steamer and patient sedated or unresponsive Staffing ANIMAL TRAPPER: Brando Britton APRN.ANIMAL TRAPPER Performed by: ANIMAL TRAPPER Indications and Patient Condition Indications for airway management: anesthesia Preoxygenated: yes anesthesia circuit Patient position: sniffing Method: asleep Final Airway Details Final airway type: supraglottic airway Number of attempts at approach: 1 Final Supraglottic Airway: i-gel Size 4 Seal Adequate: yes Failed airway: no Unrecognized esophageal intubation: no Airway not difficult SIGNATURE: Brando Britton APRN.ANIMAL TRAPPER PATIENT NAME: Marian Barber DATE: May 21, 2024 TIME: 2:04 PM [facility]: [id number] NoteHNO ID: [id number] Author: SAROJ MICHEL, DO Service: ? Author Type: Physician Type: Progress Notes Filed: 05/09/2024 11:07 Note Text: CC: Marian Barber is a 38 year old male who presents to the office for follow up HPI: ADD, long standing, has been taking the vyvanse 70 mg and then later the Adderall 20 mg short acting. He feels that the dosing may need to be increased. 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 Recently diagnosed with rectal fissure.Will be seeing specialist and having procedure by Colorectal surgeon at [facility] [place] 2 weeks to fix this. No topical medications or rectal Botox which was done on 03/27 at [facility] by Dr. 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 Aguayo and started on Budesonide orally and overall is feeling better. He has been able to quit oral use of tobacco over the last 3 months. He is very excited about this after all his effort and hard work to do so PAST MEDICAL HISTORY Diagnosis Date ADD (attention deficit disorder) diagnosed as a child GERD (gastroesophageal reflux disease) Hypercholesteremia Knee pain, bilateral [facility] brain [facility] (HCC) [facility]; Residual headache, hearing loss, vision dominguez PAST SURGICAL HISTORY Procedure Laterality Date PAST SURGICAL HISTORY OF botox for fissure VASECTOMY UNI/BI SPX W/POSTOP SEMEN EXAMS Current Outpatient Medications Medication Sig [START ON 07/08/2024] lisdexamfetamine (VYVANSE) 70 mg capsule Take 1 capsule by mouth once daily for 30 days. Patient should start on July 08, 2024. [START ON 06/09/2024] lisdexamfetamine (VYVANSE) 70 mg capsule Take 1 capsule by mouth once daily for 30 days. Patient should start on June 09, 2024. [START ON 05/11/2024] lisdexamfetamine (VYVANSE) 70 mg capsule Take 1 capsule by mouth once daily for 30 days. Patient should start on May 11, 2024. RABEprazole (ACIPHEX) 20 mg tablet Take 1 tablet by mouth once daily. [START ON 07/08/2024] dextroamphetamine-amphetamine (ADDERALL) 20 mg tablet Take 1 tablet by mouth two times a day for 30 days. In the afternoon as needed for focus/concentration Patient should start on July 08, 2024. [START ON 06/09/2024] dextroamphetamine-amphetamine (ADDERALL) 20 mg tablet Take 1 tablet by mouth two times a day for 30 days. In the afternoon as needed for focus/concentration Patient should start on June 09, 2024. [START ON 05/11/2024] dextroamphetamine-amphetamine (ADDERALL) 20 mg tablet Take 1 tablet by mouth two times a day for 30 days. In the afternoon as needed for focus/concentration Patient should start on May 11, 2024. budesonide, enteric coated (ENTOCORT EC) 3 mg 24 hr capsule once daily. NIFEdipine rectal ointment 0.2% (CPD) by RECTAL route two times a day. SUMAtriptan (IMITREX) 100 mg tablet Take 1 tablet (100 mg) by mouth as needed. take at onset of migraine, May repeat in 1 hour if needed. limit 2 doses in 24 hours. tiZANidine (ZANAFLEX) 4 mg tablet Take 1 tablet by mouth every 8 hours as needed (muscle spasm low back). (Patient not taking: Reported on 04/17/2024) No current facility-administered medications for this visit. ALLERGIES Allergen Reactions Amoxicillin Hives Septra Ds [Sulfamet* Hives Social History Tobacco Use Smoking status: Never Smokeless tobacco: Current Types: Chew Tobacco comments: chews tobacco Substance Use Topics Alcohol use: Yes Comment: rare ROS: See HPI PE: BP 128/78 Pulse 72 Temp (Src) 96.7 (Left Tympanic) Resp 16 Wt 202 lb (91.6kg) Gen: AANDOX3, NAD, non-toxic appearing HEENT: PERRLA, EOMs intact b/l, nares without drainage, pharynx without erythema, exudate, lesions, or drainage. Uvula midline. Neck: No LAD, no thyromegaly, no meningismus. CV: RRR, no murmur Lungs: CTA b/l, no wheezing Skin: No rashes, lesions, or wounds on exposed skin. No edema, normal pulses PDMP website checked and validated. All prescriptions have been APPROPRIATELY filled. No suspicious activity was identified. 05/09/2024 by Saroj Michel DO ASSESSMENT/PLAN: 1. Attention deficit disorder (ADD) in adult - ICD9: 314.00, ICD10: F98.8 (primary diagnosis) Increase dose of Adderall, continue AM dosing of Vyvanse F/u in 3-6 months in office No SE with medication, tolerating rx well - LISDEXAMFETAMINE 70 MG CAPSULE - LISDEXAMFETAMINE 70 MG CAPSULE - LISDEXAMFETAMINE 70 MG CAPSULE - DEXTROAMPHETAMINE-AMPHETAMINE 20 MG TABLET - DEXTROAMPHETAMINE-AMPHETAMINE 20 MG TABLET - DEXTROAMPHETAMINE-AMPHETAMINE 20 MG TABLET 2. Gastroesophageal reflux disease without esophagitis - ICD9: 530.81, ICD10: K21.9 - Discussed lifestyle modifications including losing weight, limiting caffeine, no meals three hours before sleep, and head of bed el (more content not included)...[facility]12-14-2024 History of Present illness Narrative* Saroj Michel DO - 05/09/2024 11:02 AM EST CC: Marian Barber is a 38 year old male who presents to the office for follow up HPI: ADD, long standing, has been taking the vyvanse 70 mg and then later the Adderall 20 mg short acting. He feels that the dosing may need to be increased. 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 Recently diagnosed with rectal fissure.Will be seeing specialist and having procedure by Colorectalsurgeon at [facility] [place] in 2 weeks to fix this. No topical medications or rectal Botox which wasdone on 03/27 at [facility] by Dr. 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 Aguayo and started on Budesonide orally and overall is feeling better. He has been able to quit oral use of tobacco over the last 3 months. He is very excited about this after all his effort and hard work to do so PAST MEDICAL HISTORY Diagnosis Date ADD (attention deficit disorder) diagnosed as a child GERD (gastroesophageal reflux disease) Hypercholesteremia Knee pain, bilateral Traumatic brain injury (HCC) 2011 [place] I[place]; Residual headache, hearing loss, vision dominguez PAST SURGICAL HISTORY Procedure Laterality Date PAST SURGICAL HISTORY OF botox for fissure VASECTOMY UNI/BI SPX W/POSTOP SEMEN EXAMS Current Outpatient Medications Medication Sig [START ON 07/08/2024] lisdexamfetamine (VYVANSE) 70 mg capsule Take 1 capsule by mouth once daily for 30 days. Patient should start on July 08, 2024. [START ON 06/09/2024] lisdexamfetamine (VYVANSE) 70 mg capsule Take 1 capsule by mouth once daily for 30 days. Patient should start on June 09, 2024. [START ON 05/11/2024] lisdexamfetamine (VYVANSE) 70 mg capsule Take 1 capsule by mouth once daily for 30 days. Patient should start on May 11, 2024. RABEprazole (ACIPHEX) 20 mg tablet Take 1 tablet by mouth once daily. [START ON 07/08/2024] dextroamphetamine-amphetamine (ADDERALL) 20 mg tablet Take 1 tablet by mouth two times a day for 30 days. In the afternoon as needed for focus/concentration Patient should start on July 08, 2024. [START ON 06/09/2024] dextroamphetamine-amphetamine (ADDERALL) 20 mg tablet Take 1 tablet by mouth two times a day for 30 days. In the afternoon as needed for focus/concentration Patient should start on June 09, 2024. [START ON 05/11/2024] dextroamphetamine-amphetamine (ADDERALL) 20 mg tablet Take 1 tablet by mouth two times a day for 30 days. In the afternoon as needed for focus/concentration Patient should starton May 11, 2024. budesonide, enteric coated (ENTOCORT EC) 3 mg 24 hr capsule once daily. NIFEdipine rectal ointment 0.2% (CPD) by RECTAL route two times a day. SUMAtriptan (IMITREX) 100 mg tablet Take 1 tablet (100 mg) by mouth as needed. take at onset of migraine, May repeat in 1 hour if needed. limit 2 doses in 24 hours. tiZANidine (ZANAFLEX) 4 mg tablet Take 1 tablet by mouth every 8 hours as needed (muscle spasm low back). (Patient not taking: Reported on 04/17/2024) No current facility-administered medications for this visit. ALLERGIES Allergen Reactions Amoxicillin Hives Septra Ds [Sulfamet* Hives Social History Tobacco Use Smoking status: Never Smokeless tobacco: Current Types: Chew Tobacco comments: chews tobacco Substance Use Topics Alcohol use: Yes Comment: rare ROS: See HPI PE: BP 128/78 Pulse 72 Temp (Src) 96.7 (Left Tympanic) Resp 16 Wt 202 lb (91.6kg) Gen: A&OX3, NAD, non-toxic appearing HEENT: PERRLA, EOMs intact b/l, nares without drainage, pharynx without erythema, exudate, lesions,or drainage. Uvula midline. Neck: No LAD, no thyromegaly, no meningismus. CV: RRR, no murmur Lungs: CTA b/l, no wheezing Skin: No rashes, lesions, or wounds on exposed skin. No edema, normal pulses PDMP website checked and validated. All prescriptions have been APPROPRIATELY filled. No suspiciousactivity was identified. 05/09/2024 by Saroj Michel DO ASSESSMENT/PLAN: 1. Attention deficit disorder (ADD) in adult - ICD9: 314.00, ICD10: F98.8 (primary diagnosis) Increase dose of Adderall, continue AM dosing of Vyvanse F/u in 3-6 months in office No SE with medication, tolerating rx well - LISDEXAMFETAMINE 70 MG CAPSULE - LISDEXAMFETAMINE 70 MG CAPSULE - LISDEXAMFETAMINE 70 MG CAPSULE - DEXTROAMPHETAMINE-AMPHETAMINE 20 MG TABLET - DEXTROAMPHETAMINE-AMPHETAMINE 20 MG TABLET - DEXTROAMPHETAMINE-AMPHETAMINE 20 MG TABLET 2. Gastroesophageal reflux disease without esophagitis - ICD9: 530.81, ICD10: K21.9 - Discussed lifestyle modifications including losing weight, limiting caffeine, no meals three hours before sleep, and head of bed elevation - RABEPRAZOLE 20 MG TABLET,DELAYED RELEASE 3. Tobacco use disorder - ICD9: 305.1, ICD10: F17.200 - Cessation encouraged. - Physiologic and physical aspects of tobacco addiction as well as strategies for quitting were discussed. - Counseling was given focusing on the harmful effects of this addiction especially given the patient's medical condition(s) which will be worsened because of the chemicals in tobacco. 4. Anal fissure - ICD9: 565.0, ICD10: K60.2 F/u with Colorectal specialist for upcoming procedure 5. 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 Aguayo Commissary Representative on EGD Saroj Michel DO Return if no improvement. Follow up with Saroj Michel DO. To ER if develops chest pain, shortness of breath. Discussed risks, benefits, alternatives, and potential side effects of medications. Patient/Guardian expressed understanding and agreed with the plan. See patient instructions. Saroj Michel DO [address] [place] [address] [facility] NoteHNO ID: [id number] Author: CRIS SANDHU MD Service: ? Author Type: Physician Type: Progress Notes Filed: 05/06/2024 16:22 Note Text: COLORECTAL SURGERY VIRTUAL VISIT FOLLOW UP I have communicated my name and active licensure. The patient's identity and physical location were verified at the time of this visit. Either the patient or their legal banking representative has been informed of the risks and benefits of -- and alternatives to -- treatment through a remote evaluation and consents to proceed with the evaluation remotely. I had a virtual visit with Mr. Barber today for follow up of anal fissure. 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 He received a Botox injection two months ago, but there was no significant improvement. He also tried Nifedipine cream, which provided partial relief. He is now interested in undergoing a lateral sphincterotomy. Previous clinical notes Marian Barber is a 38-year-old male with a chronic, non-resolving anal fissure following a Botox injection. Treatment Plan:Will initiate local nifedipine cream for 2-3 weeks (this was not tried previously). If no improvement, a lateral sphincterotomy will be considered. We discussed the procedure and possible complications, including incontinence and infection. Given the presence of enlarged internal hemorrhoids, I also mentioned that there might be a need to address potential bleeding during surgery, which could lead to some postoperative pain, typically expected to resolve within a week. 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 He received a Botox injection two months ago, but there was no significant improvement. He also tried Nifedipine cream, which provided partial relief. He is now interested in undergoing a lateral sphincterotomy. We discussed the procedure in detail, including potential complications such as postoperative pain, bleeding (with the possibility of requiring a hemorrhoidectomy if bleeding occurs), infection, and a 5-15% risk of incontinence. Data Reviewed: Tests AND Documents Reviewed/ordered: Review of prior notes from [facility] and [facility] I have independently interpreted: none I have discussed Marian Barber's treatment plan and/or results with the patient. Treatment plan: Plan for EUA with left lateral spincterotomy. Risk of morbidity, mortality and/or complications of treatment plan: low I spent a total of 20 minutes on the date of the service which included preparing to see the patient, obtaining and/or reviewing separately obtained history, and counseling and educating the patient/family/caregiver.[facility]12-11-2024 History of Present illness Narrative* Cris Sandhu MD - 05/06/2024 4:10 PM EST COLORECTAL SURGERY VIRTUAL VISIT FOLLOW UP I have communicated my name and active licensure. The patient's identity and physical location wereverified at the time of this visit. Either the patient or their legal banking representative has been informed of the risks and benefits of -- and alternatives to -- treatment through a remote evaluation andconsents to proceed with the evaluation remotely. I had a virtual visit with Mr. Barber today for follow up of anal fissure. 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 He received a Botox injection two months ago, but there was no significant improvement. He also tried Nifedipine cream, which providedpartial relief. He is now interested in undergoing a lateral sphincterotomy. Previous clinical notes Marian Barber is a 38-year-old male with a chronic, non-resolving anal fissure following a Botox injection. Treatment Plan:Will initiate local nifedipine cream for 2-3 weeks (this was not tried previously). If no improvement, a lateral sphincterotomy will be considered. We discussed the procedure and possible complications, including incontinence and infection. Given the presence of enlarged internal hemorrhoids, I also mentioned that there might be a need to address potential bleeding during surgery, which could lead to some postoperative pain, typically expected to resolve within a week. 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 He received a Botox injection two months ago, but there was no significant improvement. He also tried Nifedipine cream, which providedpartial relief. He is now interested in undergoing a lateral sphincterotomy. We discussed the procedure in detail, including potential complications such as postoperative pain,bleeding (with the possibility of requiring a hemorrhoidectomy if bleeding occurs), infection, and a 5-15% risk of incontinence. Data Reviewed: Tests & Documents Reviewed/ordered: Review of prior notes from [facility] I have independently interpreted: none I have discussed Marian Barber's treatment plan and/or results with the patient. Treatment plan: Plan for EUA with left lateral spincterotomy. Risk of morbidity, mortality and/or complications of treatment plan: low I spent a total of 20 minutes on the date of the service which included preparing to see the patient, obtaining and/or reviewing separately obtained history, and counseling and educating the patient/family/caregiver. documented in this [facility]11-[facility] History and physical note * Cris Sandhu MD - 04/17/2024 8:00 AM EST COLORECTAL SURGERY New Patient Visit April 16, 2024 Chief Complaint: Blood in stool History of Present Illness: Marian Barber is a 38-year-old male presenting with anal pain and discomfort. He initially sought treatment at [facility] for similar symptoms and was prescribed lidocaine and hydrocortisone ointments. When these treatments did not resolve the issue, he received a Botox injection three weeks ago, which initially provided relief. However, he was later admitted for acute massive lower gastrointestinal bleeding . During this hospitalization, he underwent a CT angiography, which raised suspicion for a rectosigmoid mass, and subsequently had a colonoscopy and EGD. Those ruled out malignancy but revealed acute diverticular bleeding. He was discharged a week ago, but since then, hispain has worsened, resembling the symptoms he experienced prior to the Botox injection. He is currently taking 20-30 grams of fiber supplements, and his bowel movements are soft and formed 1-2 times daily.. 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 He has a history of ADHD and chronic migraines resulting from a traumatic braininjury but is otherwise healthy. He does not use blood thinners. No active smoking, alcohol or illicit drug use. There is no significant family history of illness. He has not had any abdominal surgeries in the past. No previous abdominal or anal surgeries ( beside Botox). Recent admission in [facility] 04/19: The patient is a 38-year-old male who presented overnight to the emergency department with blood per rectum. He has been having episodes of blood per rectum since September. He underwent colonoscopy in November without an obvious cause. He underwent a flexible sigmoidoscopy about 2 weeks ago along with Botoxinjection for anal pain. Patient was admitted and wanted a second opinion and so a general surgery consult was obtained. I suspect that his bleeding initially was anal rectal or sigmoid in nature andso I offered to perform a flexible sigmoidoscopy along with a rectal exam under anesthesia and he wished to proceed. He was brought to the operating room today following informed consent. Timeout was performed. He was placed supine on the operative table. MAC anesthesia wasinduced. Once adequately anesthetized his legs were placed in a modified lithotomy position. Rectal exam was performed. He did have some moderate external hemorrhoids and a small posterior fissure but these did not seem to be causing any bleeding. Once digital rectal exam was performed a copious amount of dark red blood and clot drained out. At this point we proceeded with the insertion of the colonoscope. Upon entry there was a copious amount of blood inthe rectum along with clot. I very cautiously advance the scope irrigating and suctioning as we advance. I was able to advance the scope to about 80 to 90 cm at this point I encountered a copious amount of clot and stool which really precluded any further advancement of the scope. At this point I slowly withdrewthe scope irrigating and sucking as much clot out as possible. No readi ly apparent source was identified. Based on the appearance I would suspect either diverticular source or even an upper GI source as a another possibility. The scope was eventually withdrawn and the patient was awakened anesthesia. Would recommend continued close observation and fluid resuscitation.If he remains clinically stable he would probably benefit from bowel prep and another attempt at colonoscopy and possibly even EGD as well. It is important to note that no obvious acute source of bleeding was noted ho wever most of the blood was old appearing with clot. 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 Biopsied. - Normal stomach. Biopsied. - Normal duodenal bulb. Colonoscopy 04/13/24: Impression: - Diverticulosis in the sigmoid colon. - External and internal hemorrhoids. - One 3 mm polyp in the rectum, removed with a cold biopsy forceps. Resected and retrieved. - The examination was otherwise normal on direct and retroflexion views. Recommendation: - [facility] patient to [facility] for ongoing care.- High fiber diet.- Await pathology results.- Repeat colonoscopy in 3 - 5 years for surveillance based on pathology results. - Return to my office PRN. CTA abdomen and pelvis: Lung bases: Normal. Liver: Normal. No bile ductal dilatation. Gallbladder: Normal. Spleen: Normal. Adrenal gland: Normal. Kidneys: Normal. No hydronephrosis or stone formation. Pancreas:Normal. Bowel gas pattern: Marked colonic wall thickening within the sigmoid. Underlying mass difficult to exclude. Colonic diverticulosis. Stomach and small bowel unremarkable. Appendix: Normal. Free air: None. Free fluid: None. Pelvis: Pelvic organs: Bilateral fat-containing inguinal hernias. Bone survey: No aggressive bony lesions. No acute fractures. Adenopathy: No significant pathologic adenopathy detected. Other: None. Vascular: Normal vascular anatomy, Possible nonspecific colitis or rectosigmoid mass. Recommend follow-up with rectal contrast. This may also represent hemorrhage. PAST MEDICAL HISTORY Diagnosis Date ADD (attention deficit disorder) diagnosed as a child GERD (gastroesophageal reflux disease) Hypercholesteremia Knee pain, bilateral Traumatic brain injury (HCC) 2011 [facility] IED; Residual headache, hearing loss, vision dominguez PAST SURGICAL HISTORY Procedure Laterality Date VASECTOMY UNI/BI SPX W/POSTOP SEMEN EXAMS Current Outpatient Medications Medication Sig Dispense Refill budesonide, enteric coated (ENTOCORT EC) 3 mg 24 hr capsule once daily. dextroamphetamine-amphetamine (ADDERALL) 20 mg tablet Take 1 tablet by mouth once daily for 30 days. In the afternoon as needed for focus/concentration 30 tablet 0 lisdexamfetamine (VYVANSE) 70 mg capsule Take 1 capsule by mouth once daily for 30 days. Do not start before December 17, 2023. 30 capsule 0 RABEprazole (ACIPHEX) 20 mg tablet Take 1 tablet by mouth once daily. 90 tablet 1 SUMAtriptan (IMITREX) 100 mg tablet Take 1 tablet (100 mg) by mouth as needed. take at onset of migraine, May repeat in 1 hour if needed. limit 2 doses in 24 hours. 12 tablet 5 lisdexamfetamine (VYVANSE) 70 mg capsule Take 1 capsule by mouth once daily for 30 days. 30 capsule0 lisdexamfetamine (VYVANSE) 70 mg capsule Take 1 capsule by mouth once daily for 30 days. 30 capsule0 tiZANidine (ZANAFLEX) 4 mg tablet Take 1 tablet by mouth every 8 hours as needed (muscle spasm low back). (Patient not taking: Reported on 04/17/2024) 30 tablet 1 No current facility-administered medications for this visit. ALLERGIES Allergen Reactions Amoxicillin Hives Septra Ds [Sulfamet* Hives Review of Systems / PACC screen: Do you have difficulty climbing a full flight of stairs without feeling short of breath? no Do you require oxygen for your breathing or have your gone to an emergency department because of breathing problems? no Are you on dialysis or have you been told that your kidneys do not work well as they should? no Do have an implanted cardiac device (pacemaker, defibrillator etc.) that has not been checked in the last 6 months? no Have you had an organ transplant? no Have you been told that you had excessive bleeding during surgical procedures or do you take blood thinning medications other than aspirin? no Have you ever had a heart attack, heart stents/surgery, valve problems, or other heart problems? no Have you had a stroke, seizures, or unexplained loss of consciousness? no Do you have a neurologic condition like Parkinson's disease or multiple sclerosis? no Have you or a blood relative had a life-threatening reaction to anesthesia? no Do you have cirrhosis of the liver or other liver disease? no Have you had a blood clot within the past year? no Do you take insulin or other injections for diabetes? no Do you have sleep apnea or have you been told you may have sleep apnea? no Do you have other implanted devices (deep brain stimulator, spinal cord stimulator, etc.)? no Physical Exam: Sensitive Exam: yes, The sensitive examination was discussed with the Patient or Patient's Authorized It Support Technician. As applicable, any other physician, advance practice provider, medical student, or other health professional student that will be observing or involved in the sensitive examination for educational or training purposes was discussed with the Patient or Authorized It Support Technician. The Patient or Authorized It Support Technician has agreed to proceed with the sensitive examination. (Sensitive examination includes inspection and/or palpation of the breasts, pelvis, prostate and anorectal regions) BP 142/84 Pulse 91 Temp 36.3 C (97.3 F) (Temporal) Ht 167.6 cm (5' 6) Wt 89.4 kg (197 lb) SpO2 98% BMI 31.80 kg/m General Appearance: Well appearing, alert, icomplaining of anal pain, well- hydrated, well nourished. Abdomen: Normal abdominal exam, Abdomen soft, non-tender. Bowel sounds normal. No masses, organomegaly Anorectal: Perianal skin is intact. No erythema, induration or excoriation. 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 Enlarged internal hemorrhoids partially prolapsing. 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 Data Reviewed: Reviewed prior notes from the outside hospital ([facility]) Independently interpreted the CT Abdomen Discussed Marian Barber's treatment plan and/or results with the patient and his . Treatment Plan: Will initiate local nifedipine cream for 2-3 weeks (this was not tried previously) If no improvement, a lateral sphincterotomy will be considered. We discussed the procedure and possible complications, including incontinence and infection. Given the presence of enlarged internal hemorrhoids, I also mentioned that there might be a need to address potential bleeding during surgery,which could lead to some postoperative pain, typically expected to resolve within a week. Risk of morbidity, mortality and/or complications of treatment plan: low [facility] RESEARCH DISCUSSION - Surgeon DID NOT DISCUSS Colorectal Research with the patient during encounter. Time Spent: 25 minutes, >50% of the time was spent in counseling and coordination of care as outlined in the plan above. [facility]11-22-[facility] History and physical note* Cris Sandhu MD - 04/17/2024 8:00 AM EST COLORECTAL SURGERY New Patient Visit April 16, 2024 Chief Complaint: Blood in stool History of Present Illness: Marian Barber is a 38-year-old male presenting with anal pain and discomfort. He initially sought treatment at [facility] for similar symptoms and was prescribed lidocaine and hydrocortisone ointments. When these treatments did not resolve the issue, he received a Botox injection three weeks ago, which initially provided relief. However, he was later admitted for acute massive lower gastrointestinal bleeding . During this hospitalization, he underwent a CT angiography, which raised suspicion for a rectosigmoid mass, and subsequently had a colonoscopy and EGD. Those ruled out malignancy but revealed acute diverticular bleeding. He was discharged a week ago, but since then, hispain has worsened, resembling the symptoms he experienced prior to the Botox injection. He is currently taking 20-30 grams of fiber supplements, and his bowel movements are soft and formed 1-2 times daily.. 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 He has a history of ADHD and chronic migraines resulting from a traumatic braininjury but is otherwise healthy. He does not use blood thinners. No active smoking, alcohol or illicit drug use. There is no significant family history of illness. He has not had any abdominal surgeries in the past. No previous abdominal or anal surgeries ( beside Botox). Recent admission in [facility] 04/19: The patient is a 38-year-old male who presented overnight to the emergency department with blood per rectum. He has been having episodes of blood per rectum since September. He underwent colonoscopy in November without an obvious cause. He underwent a flexible sigmoidoscopy about 2 weeks ago along with Botoxinjection for anal pain. Patient was admitted and wanted a second opinion and so a general surgery consult was obtained. I suspect that his bleeding initially was anal rectal or sigmoid in nature andso I offered to perform a flexible sigmoidoscopy along with a rectal exam under anesthesia and he wished to proceed. He was brought to the operating room today following informed consent. Timeout was performed. He was placed supine on the operative table. MAC anesthesia wasinduced. Once adequately anesthetized his legs were placed in a modified lithotomy position. Rectal exam was performed. He did have some moderate external hemorrhoids and a small posterior fissure but these did not seem to be causing any bleeding. Once digital rectal exam was performed a copious amount of dark red blood and clot drained out. At this point we proceeded with the insertion of the colonoscope. Upon entry there was a copious amount of blood inthe rectum along with clot. I very cautiously advance the scope irrigating and suctioning as we advance. I was able to advance the scope to about 80 to 90 cm at this point I encountered a copious amount of clot and stool which really precluded any further advancement of the scope. At this point I slowly withdrewthe scope irrigating and sucking as much clot out as possible. No readi ly apparent source was identified. Based on the appearance I would suspect either diverticular source or even an upper GI source as a another possibility. The scope was eventually withdrawn and the patient was awakened anesthesia. Would recommend continued close observation and fluid resuscitation.If he remains clinically stable he would probably benefit from bowel prep and another attempt at colonoscopy and possibly even EGD as well. It is important to note that no obvious acute source of bleeding was noted ho wever most of the blood was old appearing with clot. 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 Biopsied. - Normal stomach. Biopsied. - Normal duodenal bulb. Colonoscopy 04/13/24: Impression: - Diverticulosis in the sigmoid colon. - External and internal hemorrhoids. - One 3 mm polyp in the rectum, removed with a cold biopsy forceps. Resected and retrieved. - The examination was otherwise normal on direct and retroflexion views. Recommendation: - [facility] patient to [facility] for ongoing care.- High fiber diet.- Await pathology results.- Repeat colonoscopy in 3 - 5 years for surveillance based on pathology results. - Return to my office PRN. CTA abdomen and pelvis: Lung bases: Normal. Liver: Normal. No bile ductal dilatation. Gallbladder: Normal. Spleen: Normal. Adrenal gland: Normal. Kidneys: Normal. No hydronephrosis or stone formation. Pancreas:Normal. Bowel gas pattern: Marked colonic wall thickening within the sigmoid. Underlying mass difficult to exclude. Colonic diverticulosis. Stomach and small bowel unremarkable. Appendix: Normal. Free air: None. Free fluid: None. Pelvis: Pelvic organs: Bilateral fat-containing inguinal hernias. Bone survey: No aggressive bony lesions. No acute fractures. Adenopathy: No significant pathologic adenopathy detected. Other: None. Vascular: Normal vascular anatomy, Possible nonspecific colitis or rectosigmoid mass. Recommend follow-up with rectal contrast. This may also represent hemorrhage. PAST MEDICAL HISTORY Diagnosis Date ADD (attention deficit disorder) diagnosed as a child GERD (gastroesophageal reflux disease) Hypercholesteremia Knee pain, bilateral Traumatic brain injury (HCC) 2011 [facility] IED; Residual headache, hearing loss, vision dominguez PAST SURGICAL HISTORY Procedure Laterality Date VASECTOMY UNI/BI SPX W/POSTOP SEMEN EXAMS Current Outpatient Medications Medication Sig Dispense Refill budesonide, enteric coated (ENTOCORT EC) 3 mg 24 hr capsule once daily. dextroamphetamine-amphetamine (ADDERALL) 20 mg tablet Take 1 tablet by mouth once daily for 30 days. In the afternoon as needed for focus/concentration 30 tablet 0 lisdexamfetamine (VYVANSE) 70 mg capsule Take 1 capsule by mouth once daily for 30 days. Do not start before December 17, 2023. 30 capsule 0 RABEprazole (ACIPHEX) 20 mg tablet Take 1 tablet by mouth once daily. 90 tablet 1 SUMAtriptan (IMITREX) 100 mg tablet Take 1 tablet (100 mg) by mouth as needed. take at onset of migraine, May repeat in 1 hour if needed. limit 2 doses in 24 hours. 12 tablet 5 lisdexamfetamine (VYVANSE) 70 mg capsule Take 1 capsule by mouth once daily for 30 days. 30 capsule0 lisdexamfetamine (VYVANSE) 70 mg capsule Take 1 capsule by mouth once daily for 30 days. 30 capsule0 tiZANidine (ZANAFLEX) 4 mg tablet Take 1 tablet by mouth every 8 hours as needed (muscle spasm low back). (Patient not taking: Reported on 04/17/2024) 30 tablet 1 No current facility-administered medications for this visit. ALLERGIES Allergen Reactions Amoxicillin Hives Septra Ds [Sulfamet* Hives Review of Systems / PACC screen: Do you have difficulty climbing a full flight of stairs without feeling short of breath? no Do you require oxygen for your breathing or have your gone to an emergency department because of breathing problems? no Are you on dialysis or have you been told that your kidneys do not work well as they should? no Do have an implanted cardiac device (pacemaker, defibrillator etc.) that has not been checked in the last 6 months? no Have you had an organ transplant? no Have you been told that you had excessive bleeding during surgical procedures or do you take blood thinning medications other than aspirin? no Have you ever had a heart attack, heart stents/surgery, valve problems, or other heart problems? no Have you had a stroke, seizures, or unexplained loss of consciousness? no Do you have a neurologic condition like Parkinson's disease or multiple sclerosis? no Have you or a blood relative had a life-threatening reaction to anesthesia? no Do you have cirrhosis of the liver or other liver disease? no Have you had a blood clot within the past year? no Do you take insulin or other injections for diabetes? no Do you have sleep apnea or have you been told you may have sleep apnea? no Do you have other implanted devices (deep brain stimulator, spinal cord stimulator, etc.)? no Physical Exam: Sensitive Exam: yes, The sensitive examination was discussed with the Patient or Patient's Authorized It Support Technician. As applicable, any other physician, advance practice provider, medical student, or other health professional student that will be observing or involved in the sensitive examination for educational or training purposes was discussed with the Patient or Authorized It Support Technician. The Patient or Authorized It Support Technician has agreed to proceed with the sensitive examination. (Sensitive examination includes inspection and/or palpation of the breasts, pelvis, prostate and anorectal regions) BP 142/84 Pulse 91 Temp 36.3 C (97.3 F) (Temporal) Ht 167.6 cm (5' 6) Wt 89.4 kg (197 lb) SpO2 98% BMI 31.80 kg/m General Appearance: Well appearing, alert, icomplaining of anal pain, well- hydrated, well nourished. Abdomen: Normal abdominal exam, Abdomen soft, non-tender. Bowel sounds normal. No masses, organomegaly Anorectal: Perianal skin is intact. No erythema, induration or excoriation. 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 Enlarged internal hemorrhoids partially prolapsing. 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 Data Reviewed: Reviewed prior notes from the outside hospital ([facility]) Independently interpreted the CT Abdomen Discussed Marian Barber's treatment plan and/or results with the patient and his . Treatment Plan: Will initiate local nifedipine cream for 2-3 weeks (this was not tried previously) If no improvement, a lateral sphincterotomy will be considered. We discussed the procedure and possible complications, including incontinence and infection. Given the presence of enlarged internal hemorrhoids, I also mentioned that there might be a need to address potential bleeding during surgery,which could lead to some postoperative pain, typically expected to resolve within a week. Risk of morbidity, mortality and/or complications of treatment plan: low CORS RESEARCH DISCUSSION - Surgeon DID NOT DISCUSS Colorectal Research with the patient during encounter. Time Spent: 25 minutes, >50% of the time was spent in counseling and coordination of care as outlined in the plan above. [facility] Telephone encounter Note * Telephone Encounter - Enid Camacho LPN - 04/14/2024 10:17 AM EST The patient has been identified by name [...] future office visit with this provider/department: Yes 05/08/2024 Requested Prescriptions Pending Prescriptions Disp Refills dextroamphetamine-amphetamine (ADDERALL) 20 mg tablet 30 tablet 0 Sig: Take 1 tablet by mouth once daily for 30 days. In the afternoon as needed for focus/concentration lisdexamfetamine (VYVANSE) 70 mg capsule 30 capsule 0 Sig: Take 1 capsule by mouth once daily for 30 days. Enid Camacho LPN April 14, 2024 10:17 AM [facility]11-19-2024 Miscellaneous Notes* Telephone Encounter - Enid Camacho LPN - 04/14/2024 10:17 AM EST The patient has been identified by name [...] future office visit with this provider/department: Yes 05/08/2024 Requested Prescriptions Pending Prescriptions Disp Refills dextroamphetamine-amphetamine (ADDERALL) 20 mg tablet 30 tablet 0 Sig: Take 1 tablet by mouth once daily for 30 days. In the afternoon as needed for focus/concentration lisdexamfetamine (VYVANSE) 70 mg capsule 30 capsule 0 Sig: Take 1 capsule by mouth once daily for 30 days. Enid Camacho LPN April 14, 2024 10:17 AM documented in this encounterVan [facility]11[facility] Medical Records Department [address] [place] [id number] Discharge Summary 04/13/24 1328 MR#: [id number] Acct: [id number] Name: MARIAN BARBER Rep #: [id number] : 1985 38 From: Edilson Islas DO PCP: Dr. Saroj Michel DO Status:ADM IN Location: [facility] [id number] Providers Date of Admission: 04/09/24 Primary Care Physician: Dr. Saroj Michel DO Consultations 04/09/24 23:25 Consult: General Surgery Routine Consulting Provider: Blu Wagner Reason for Consult: acute lower GI bleed EMERGENT Consult: No MD Notified: Yes Date Notified: 04/10/24 Time Notified: 06:43 Method of Notification: Text Reason For Visit: ACUTE LOWER GI BLEED Diagnosis Discharge Diagnosis (1) Acute lower gastrointestinal bleeding: Status: Acute Code(s): K92.2 - Gastrointestinal hemorrhage, unspecified Plan GI bleed * EGD unremarkable. Colonoscopy showed no active source of bleeding. Diverticulosis noted in sigmoid colon as well as external and internal hemorrhoids. * I suspect it may be due to divertiuclosis. * GS recommending a high-fiber diet ABLA * 2/2 GIB. Hg dropped from 14.3 to 12.3. Hg has remained stable * No transfusion necessary at this time. Syncope * I suspect due to fluid shift from acute anemia. No further events. No additional work up at this time. Discharge home. Medications at Discharge Home Medications sumatriptan succinate 100 mg tablet (Imitrex) 100 mg PO DAILY PRN MIGRAINE 06/02/17 rabeprazole 20 mg tablet,delayed release (AcipHex) 20 mg PO DAILY GERD 30 days #30 tabs 05/07/22 dextroamphetamine-amphetamine 20 mg tablet (Adderall) 20 mg PO DAILY ADHD 12/10/23 multivitamin (Daily Multi-Vitamin tablet) 1 tab PO DAILY HEALTH MAINTENANCE 12/10/23 budesonide 3 mg capsule,delayed,extended release 6 mg (2 x 3 mg) PO DAILY CROHNS DISEASE #60 ea 12/18/23 Diltiazem 10mg/Lidocaine 50mg Suppository 30 supp suppository 1 supp AK BID RECTAL SPASMS 21 days #30 supp 03/23/24 lisdexamfetamine 70 mg capsule (Vyvanse) 70 mg PO DAILY ADHD 03/24/24 Hydrocortisone 2.5% / Lidocaine 5% ointment (cmpd) (Hydrocortisone 2.5%/lidocaine 5% ointment (compound)) 04/13/24 Hospital Course Procedures Colonoscopy and EGD Summary of Care Provided Minutes Spent on Discharge: 28 Weight / BMI Weight Weight: 88.813 kg Body Mass Index (BMI) 32.1 ABG / Lab / Microbiology Data 04/13/24 06:31 04/13/24 06:31 Laboratory: Laboratory Results - last 24 hr 04/13/24 06:31: WBC 6.4, RBC 4.50 L, Hgb 12.7 L, Hct 38.5 L, MCV 85.6, MCH 28.2, MCHC 33.0, RDW Std Deviation 41.2, RDW Coeff of George 13.3, Plt Count 314, MPV 9.9, Immature Gran % (Auto) 0.500, Neut % (Auto) 53.8, Lymph % (Auto) 33.5, [place] % (Auto) 8.7, Eos % (Auto) 2.6, Baso % (Auto) 0.9, Absolute Neuts (auto) 3.5, Absolute Lymphs (auto) 2.15, Nucleated RBC % 0, Sodium 140, Potassium 3.8, Chloride 106, Carbon Dioxide 27.0, Anion Gap 7, BUN 9, Creatinine 1.26, Estim Creat Clear Calc 84.61, Est GFR (MDRD) Af Amer 83, Est GFR (MDRD) Non-Af 69, BUN/Creatinine Ratio 7.1 L, Glucose 102, Calcium 9.1 D/C Instructions Discharge Diet: - (high fiber diet) Meaningful Use Info Meaningful Use Meaningful Use Diagnoses (Choose all that apply): None applicable Ischemic Stroke Statin Dosing Therapy Reference: STATIN DOSE THERAPY REFERENCE: * Patients > 75 years receive moderate or high dose statin therapy. * Patients 75 years or YOUNGER should receive HIGH intensity statin dose unless contraindicated. You will be required to document reason for non-treatment if statin daily dose does not meet guidelines. HIGH DOSE STATIN THERAPY DAILY Atorvastatin > than or = to 40 mg Rosuvastatin > than or = to 20 mg Amlodipine + Atorvastatin > than or = to 2.5/40 mg Ezetimibe + Simvastatin 10/80 mg Simvastatin 80mg Discharge Plan Admission Admit Date/Time: 04/09/24 22:41 Primary Reason for Your Visit: GI bleed Attending Provider: Edilson Islas Primary Care Provider: Saroj Michel Consulting Providers: Rivera Banda; Blu Wagner; Sandoval Dugan Instructions Additional Instructions / Restrictions: Rectal bleeding is likely due to diverticulosis or your internal hemorrhoids. As you know, EGD and colonoscopy did not show any active bleeding. It is possible these could bleed again. General surgery recommends a high fiber diet. I suspect your passing out when you stand up was likely due to fluid shifts with the anemia causing a vagal type reaction. I do not have any restrictions on your activity at this time. Inform your physician or return to the emergency room if you have recurrent bleeding in the future. Discharge Orders/Prescriptions Prescriptions: Continued sumatriptan succinate [Imitrex] 100 MG tablet 100 mg PO DAILY PRN (Reason: M (more content not included)...[facility]11-01-2024 [facility] Medical Records Department [address] [facility] [place] [address] History Physical Exam 03/27/24 1203 MR#: [id number] Acct: [id number] Name: MARIAN BARBER Rep #: [id number] : 1985 38 From: Eagle Friend DO PCP: Dr. Saroj Michel, DO Status:[facility] Location: [place] [address] History and Physical Date of Admission: 03/27/24 MARIAN BARBER, is a 38 M who presents to the office today for f/u. OV 11.08.23 pt reports he started noticing blood in his stool about a month ago; there were flecks of black in the stool and the water in the toilet was bright red, is not as bad as it had been, but his stool sample on 10.30.23 came back positive for blood. Pt reports that he possibly has hemorrhoids. Pt reports that he has started taking a fiber supplement and a stool softener since the blood in the stool began. Continues with Rabeprazole. Colonoscopy 12.11.23; Diverticulosis in the recto-sigmoid colon, in the sigmoid colon, in the descending colon and at the splenic flexure. - Congested mucosa in the terminal ileum. Biopsied. EGD 12.11.23; - Esophageal mucosal variant. Biopsied. 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 Biopsied. - Small hiatal hernia. - Erythematous duodenopathy. Biopsied. OV 10.28.24 pt is here today for rectal pain. Pt has been having his pain since August but it has improved up until a a few days ago. He has been having half hour long episodes of stabbing rectal pain. This will wake him up from his sleep. 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 He has no other GI symptoms. He denies fever or night sweats. ROS Const Constitutional: No fatigue, fever(s) or weight change ENT ENT: No difficulty swallowing Gastro GI: No abdominal pain, belching, bloating, change in bowel habits, change in stool character, coffee ground emesis, constipation, cramping, diarrhea, heartburn, difficulty swallowing, feeling full early, excessive flatus, incontinent of stools, Vomiting blood/hematemesis, Blood in stool, loose stools, Black,tarry stools, nausea/dyspepsia, pain with swallowing, vomiting or other Musc Musculoskeletal: No joint pain Skin Skin: No yellowing of the eye or itchy eyes Psych Psychiatric: No anxiety and No depression Endo Endocrine: No fatigue or weight change Aller/Imm Allergy/Immunologic: No itchy eyes Shaka/Lymp Hematologic/Lymphatic: No easy bleeding or easy bruising Exam Const General: cooperative and comfortable Nutritional Appearance: average body habitus and well nourished [facility] Head: normal to inspection Ears: hearing grossly normal bilaterally Nose: external nose normal Face and sinus: normal facial exam Eyes General: appearance normal, both eyes and all related structures Neck Neck: normal visual inspection Chest Chest palpation inspection: normal inspection of the chest Resp Effort Inspection: normal respiratory effort and able to speak in complete sentences Cardio Palpation: normal PMI Rhythm: regular rhythm GI Inspection: normal to inspection Rectal Exam: visual inspection normal, normal sphincter tone and hemorrhoids Skin General: no rashes or lesions noted Neuro General: patient alert Extrem General: normal to inspection Psych Affect: normal affect Assessment and Plan Assessment and Plan (1) Rectal pain: Status: Acute Plan: This is a 38 yo male here today for evaluation of severe rectal pain for the past 3 days. He has had this in the past but not recently. I spoke with Dr. Aguayo and he recommended we order a stat CT abdomen/pelvis to rule out a rectal abscess. He will also need blood work ESR, CRP, lactic acid and CBC. 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 Aguayo recommends botox in the levator ani muscle under sedation. He will be scheduled for this. Hydrocortisone/ lidocaine cream and suppository and oxycodone prescribed to him. -CT abdomen pelvis ordered stat -Blood work -Suppository, cream and pain medication sent to pharmacy -Consider botox under sedation for proctalgia fugax - Orders: Orders Abdomen/Pelvis WITH Contrast Today K62.89 - Other specified diseases of anus and rectum I have examined the patient and the H P has been reviewed. There are no clinical changes since date of exam. 03/27/24 1203 Cosigner Signature (if applicable): CC: Dr. Saroj Michel, ; Eagle Aguayo DO [facility] Telephone encounter Note* Telephone Encounter - Luis Alfredo Olivera APRN.CNP - 03/12/2024 9:07 AM EDT The following approved medication requests have been transmitted electronically. Requested Prescriptions Signed Prescriptions Disp Refills lisdexamfetamine (VYVANSE) 70 mg capsule 30 capsule 0 Sig: Take 1 capsule by mouth once daily for 30 days. Authorizing Provider: LUIS ALFREDO OLIVERA dextroamphetamine-amphetamine (ADDERALL) 20 mg tablet 30 tablet 0 Sig: Take 1 tablet by mouth once daily for 30 days. In the afternoon as needed for focus/concentration Authorizing Provider: LUIS ALFREDO OLIVERA APRN.CNP PDMP website checked and validated. All prescriptions have been APPROPRIATELY filled. No suspiciousactivity was identified. 03/12/2024 by Luis Alfredo Olivera CNP. [facility]10-17-2024 Miscellaneous Notes* Telephone Encounter - Luis Alfredo Olivera APRN.CNP - 03/12/2024 9:07 AM EDT The following approved medication requests have been transmitted electronically. Requested Prescriptions Signed Prescriptions Disp Refills lisdexamfetamine (VYVANSE) 70 mg capsule 30 capsule 0 Sig: Take 1 capsule by mouth once daily for 30 days. Authorizing Provider: LUIS ALFREDO OLIVERA dextroamphetamine-amphetamine (ADDERALL) 20 mg tablet 30 tablet 0 Sig: Take 1 tablet by mouth once daily for 30 days. In the afternoon as needed for focus/concentration Authorizing Provider: LUIS ALFREDO OLIVERA APRN.CNP PDMP website checked and validated. All prescriptions have been APPROPRIATELY filled. No suspiciousactivity was identified. 03/12/2024 by Luis Alfredo Olivera CNP. * Telephone Encounter - Loni Sanz LPN - 03/11/2024 8:30 AM EDT Patient has been identified by name and [...] care: 04/17/2024 Please advise. Thank you. Loni Sanz LPN. documented in this encounterCleveland [id number] Telephone encounter Note * Telephone Encounter - Loni Sanz LPN - 03/11/2024 8:30 AM EDT Patient has been identified by name and [...] care: 04/17/2024 Please advise. Thank you. Loni Snaz LPN. [facility]09-23-2024 Telephone encounter Note* Telephone Encounter - Rose Marie Leone RN - 02/17/2024 4:24 PM EDT Pharmacy calls to report that patient also needs a refill on Adderall. Insurance only covers a 30 day prescription so 01/17/2024 prescription was filled for 30 days and patient now needs a new prescription. Pended 30 day per request. Rose Marie Leone RN [facility]09-23-2024 Miscellaneous Notes* Telephone Encounter - Rose Marie Leone RN - 02/17/2024 4:24 PM EDT Pharmacy calls to report that patient also needs a refill on Adderall. Insurance only covers a 30 day prescription so 01/17/2024 prescription was filled for 30 days and patient now needs a new prescription. Pended 30 day per request. Rose Marie Leone RN * Telephone Encounter - Cindi Conner RN - 02/17/2024 4:21 PM EDT Prescription Refill Information The patient has been [...] 17, 2024 4:21 PM documented in this encounterVan [facility]09-[facility] Telephone encounter Note * Telephone Encounter - Cindi Conner RN - 02/17/2024 4:21 PM EDT Prescription Refill Information The patient has been [...] Conner RN February 17, 2024 4:21 PM [facility]08-23-20[facility] Telephone encounter Note* Telephone Encounter - Mimi Jerez MA - 01/17/2024 11:24 AM EDT Pt informed, verbalized understanding. Mimi Jerez MA [facility]08-23-2024 Miscellaneous Notes* Telephone Encounter - Mimi Jerez MA - 01/17/2024 11:24 AM EDT Pt informed, verbalized understanding. Mimi Jerez MA * Telephone Encounter - Dulce Maria Chilel RN - 01/16/2024 8:54 AM EDT Pts was asking if provider would be [...] 16, 2024 8:54 AM documented in this encounterVan [facility]08-[facility]24 Telephone encounter Note * Telephone Encounter - Dulce Maria Chilel RN - 01/16/2024 8:54 AM EDT Pts was asking if provider would be able to send in 3 months worth of refills at a time like she would do with the [facility]. The patient has been identified by name [...] Chilel RN January 16, 2024 8:54 AM [facility]07-23-[facility] Telephone encounter Note* Telephone Encounter - Luis Alfredo Olivera APRN.CNP - 12/17/2023 3:20 PM EDT The following approved medication requests have been transmitted electronically. Requested Prescriptions Signed Prescriptions Disp Refills dextroamphetamine-amphetamine (ADDERALL) 20 mg tablet 30 tablet 0 Sig: Take 1 tablet by mouth once daily for 30 days. In the afternoon as needed for focus/concentration Authorizing Provider: LUIS ALFREDO OLIVERA APRN.CNP PDMP website checked and validated. All prescriptions have been APPROPRIATELY filled. No suspiciousactivity was identified. 12/17/2023 by Luis Alfredo Olivera CNP. [facility]07-23-2024 Miscellaneous Notes* Telephone Encounter - Luis Alfredo Olivera APRN.CNP - 12/17/2023 3:20 PM EDT The following approved medication requests have been transmitted electronically. Requested Prescriptions Signed Prescriptions Disp Refills dextroamphetamine-amphetamine (ADDERALL) 20 mg tablet 30 tablet 0 Sig: Take 1 tablet by mouth once daily for 30 days. In the afternoon as needed for focus/concentration Authorizing Provider: LUIS ALFREDO OLIVERA APRN.CNP PDMP website checked and validated. All prescriptions have been APPROPRIATELY filled. No suspiciousactivity was identified. 12/17/2023 by Luis Alfredo Olivera CNP. * Telephone Encounter - Kim Shea - 12/17/2023 9:30 AM EDT Prescription Refill Information The patient has been [...] 17, 2023 9:30 AM documented in this encounterVan [facility]07-[facility] Telephone encounter Note * Telephone Encounter - Kim Shea - 12/17/2023 9:30 AM EDT Prescription Refill Information The patient has been [...] Kim Long December 17, 2023 9:30 AM [facility]07-17-2024 [facility] Medical Records Department [address] [place] [address] History Physical Exam 12/11/23730 MR#: [id number] Acct: [id number] Name: MARIAN BARBER Rep #: [id number] : 1985 38 From: Eagle Friend DO PCP: Dr. Saroj Michel, DO [place]: [place] [address] History and Physical Date of Admission: 12/11/23 MARIAN BARBER, is a 38 M who presents to the office today for follow up. OV 11.08.23 pt reports he started noticing blood in his stool about a month ago; there were flecks of black in the stool and the water in the toilet was bright red, is not as bad as it had been, but his stool sample on 10.30.23 came back positive for blood. Pt reports that he possibly has hemorrhoids. Pt reports that he has started taking a fiber supplement and a stool softener since the blood in the stool began. Continues with Rabeprazole. ROS Const Constitutional: Positive for fatigue; No fever(s) or weight change ENT ENT: No difficulty swallowing Gastro GI: Positive for change in bowel habits and Blood in stool; No abdominal pain, belching, bloating, change in stool character, coffee ground emesis, constipation, cramping, diarrhea, heartburn, difficulty swallowing, feeling full early, excessive flatus, incontinent of stools, Vomiting blood/hematemesis, loose stools, Black,tarry stools, nausea/dyspepsia, pain with swallowing, vomiting or other Musc Musculoskeletal: No joint pain Skin Skin: No yellowing of the eye or itchy eyes Psych Psychiatric: No anxiety, No depression and Positive for inattentiveness Endo Endocrine: Positive for fatigue; No weight change Aller/Imm Allergy/Immunologic: No itchy eyes Shaka/Lymp Hematologic/Lymphatic: No easy bleeding or easy bruising Exam Const General: cooperative, healthy appearing, comfortable and no acute distress Nutritional Appearance: well nourished Orientation: alert, awake and oriented x3 [facility] Head: normal to inspection Ears: hearing grossly normal bilaterally, external ears normal, TM's normal bilaterally and EAC's normal Nose: external nose normal, nares normal, septum normal and no nasal discharge Face and sinus: normal facial exam, sinuses nontender and face symmetric Mouth: oral mucosae normal, lip normal, tongue normal and oropharynx normal Throat: posterior oropharynx normal, tonsils normal, uvula midline and no postnasal drainage Eyes General: appearance normal, both eyes and all related structures Neck Neck: normal visual inspection, full ROM, no lymphadenopathy, no meningeal signs and supple Neck mass: No Thyroid: thyroid normal Lymphatic: no lymphadenopathy noted Chest Chest palpation inspection: normal inspection of the chest Resp Effort Inspection: normal respiratory effort, able to speak in complete sentences, symmetric chest movement and no cough Auscultation: Bilateral: Clear to Auscultation Cardio Palpation: normal PMI Rate: regular rate Rhythm: regular rhythm Heart Sounds: S1 normal, S2 normal, no gallops, no murmurs and no rubs Pulses: radial pulses present GI Inspection: normal to inspection Palpation: soft and no hepatosplenomegaly Skin General: no rashes or lesions noted Neuro General: patient alert, patient awake, patient oriented x3 and gait normal Cognition: normal cognition Speech: speech normal Gait: normal gait Motor: muscle tone normal throughout Sensory Exam: no sensory deficits noted Psych Appearance: grossly normal Mental Status: mental status grossly normal Mood: congruent mood Affect: normal affect Speech and Movement: speech and movement normal Attitude: cooperative Thought Process: normal Thought Content: normal Judgment: judgment good Assessment and Plan Assessment and Plan (1) GI bleed: Status: Acute Plan: 38-year-old gentleman with no significant past medical history who comes in with lower GI bleed. Differential diagnosis does include hemorrhoidal disease, anal fissure, stercoral ulcer, and less likely ulcerative proctitis. He will undergo colonoscopy with possible treatment of hemorrhoidal disease with banding plus or minus Botox therapy for anal fissure. He was explained alternatives, risk, benefits including not withstanding bleeding, infection, sepsis, perforation, need for charge and . He will have an ASA of 3. I have examined the patient and the H P has been reviewed. There are no clinical changes since date of exam. 12/11/23 0731 Cosigner Signature (if applicable): CC: Dr. Saroj Michel DO; Eagle Aguayo DO [facility] Tele[facility] encounter Note* Telephone Encounter - Marilu Conklin LPN - 11/25/2023 8:41 AM EDT [facility] Scheduling office calling requesting copy of ECHO order to be faxed to [phone]. Printed and faxed as requested. [facility]07-01-2024 Miscellaneous Notes* Telephone Encounter - Marilu Conklin LPN - 11/25/2023 8:41 AM EDT [facility] Scheduling office calling requesting copy of ECHO order to be faxed to [phone]. Printed and faxed as requested. documented in this encounterVan [facility]06-26-[facility]24 Telephone encounter Note * Telephone Encounter - Jasson Girard RN - 11/20/2023 8:30 AM EDT Phoned patient and given provider's message below with verbalized understanding. [facility]06-26-2024 Miscellaneous Notes* Telephone Encounter - Jasson Girard RN - 11/20/2023 8:30 AM EDT Phoned patient and given provider's message below with verbalized understanding. * Telephone Encounter - Saroj Michel DO - 11/19/2023 4:50 PM EDT Please let patient know that thyroid labs are normal Saroj Michel DO * Telephone Encounter - Mimi Jerez MA - 11/19/2023 3:20 PM EDT Please see thyroid labs- Scan on 11/19/2023 2:15 PM by ProviderLionel PA-C: Miscellaneous Lab documented in this encounterVan [facility]06-25-2024 Telephone encounter Note * Telephone Encounter - Saroj Michel DO - 11/19/2023 4:50 PM EDT Please let patient know that thyroid labs are normal Saroj Michel DO [facility]06-25-2024 Telephone encounter Note* Telephone Encounter - Mimi Jerez MA - 11/19/2023 3:20 PM EDT Please see thyroid labs- Scan on 11/19/2023 2:15 PM by ProviderLionel PA-C: Miscellaneous Lab [facility]06-25-2024 History of Present illness Narrative* Saroj Michel DO - 11/19/2023 11:05 AM EDT CC: Marian Barber is a 38 year old male who presents to the office for follow up HPI: Colonoscopy upcoming mid November with Dr. Aguayo Commissary Representative due to having some blood in his stools. His GERD has been well controlled with Aciphex without any new changes, no nausea or vomiting. Was in the EMERGENCY DEPARTMENT about 1 month ago for palpitations and chest pain at [facility]. Work up for cardiac symptoms was negative. 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 ALLERGIES Allergen Reactions Amoxicillin Hiviker Cesar Ds [Sulfamet* Hives Social History Tobacco Use Smoking status: Never Smokeless tobacco: Current Types: Chew Tobacco comments: chews tobacco Substance Use Topics Alcohol use: Yes Comment: rare ROS: See HPI PE: BP 124/80 Pulse 80 Temp (Src) 97.4 (Left Tympanic) Resp 12 Ht 5' 6.142 (1.68m) Wt 198 lb(89.8kg) BMI 31.82 kg/(m^2). Gen: A&OX3, NAD, non-toxic appearing HEENT: PERRLA, EOMs intact b/l, nares without drainage, pharynx without erythema, exudate, lesions,or drainage. Uvula midline. Neck: No LAD, no thyromegaly, no meningismus. CV: RRR, no murmur Lungs: CTA b/l, no wheezing Skin: No rashes, lesions, or wounds on exposed skin. No edema, normal pulses Abd: soft, NT, overweight PDMP website checked and validated. All prescriptions have been APPROPRIATELY filled. No suspiciousactivity was identified. 11/19/2023 by Saroj Michel DO ASSESSMENT/PLAN: 1. 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 Follow up with Saroj Michel DO. To ER if develops chest pain, shortness of breath. Discussed risks, benefits, alternatives, and potential side effects of medications. Patient/Guardian expressed understanding and agreed with the plan. See patient instructions. Saroj Michel DO [address] [place] [address] documented in this encounterVan [facility]ert [facility]05-23-2024 Telephone encounter Note * Telephone Encounter - Hien Rivas APRN.CNP - 10/17/2023 8:24 AM EDT PDMP website checked and validated. All prescriptions have been APPROPRIATELY filled. No suspiciousactivity was identified. 10/17/2023 by Hien Rivas APRN.CNP The following approved medication requests have been transmitted electronically. Requested Prescriptions Signed Prescriptions Disp Refills lisdexamfetamine (VYVANSE) 70 mg capsule 30 capsule 0 Sig: Take 1 capsule by mouth once daily for 30 days. Authorizing Provider: HIEN RIVAS APRN.CNP [facility]05-23-2024 Miscellaneous Notes* Telephone Encounter - Hien Rivas APRN.CNP - 10/17/2023 8:24 AM EDT PDMP website checked and validated. All prescriptions have been APPROPRIATELY filled. No suspiciousactivity was identified. 10/17/2023 by Hien Rivas APRN.CNP The following approved medication requests have been transmitted electronically. Requested Prescriptions Signed Prescriptions Disp Refills lisdexamfetamine (VYVANSE) 70 mg capsule 30 capsule 0 Sig: Take 1 capsule by mouth once daily for 30 days. Authorizing Provider: RIVASHIEN MERRITT APRN.PAINTING TECHNICIAN * Telephone Encounter - Ana Lorenzo RN - 10/14/2023 11:25 AM EDT Patient has been identified by name and [...] you. Ana Lorenzo RN. documented in this encounterVan [facility]ert [facility]05-20-2024 Telephone encounter Note * Telephone Encounter - Ana Lorenzo RN - 10/14/2023 11:25 AM EDT Patient has been identified by name and [...] Please advise. Thank you. Ana Lorenzo RN. [facility]04-15-2024 Miscellaneous Notes* Telephone Encounter - Ana Lorenzo RN - 09/09/2023 11:44 AM EDT Patient has been identified by name and [...] you. Ana Lorenzo RN. documented in this encounterVan [facility]ert [facility] Hospital03-20-2024 Discharge summary Author Edilson Fuentes [facility] August 14, 2023 9:08am Note Date/Time August 14, 2023 9:0 8am [facility] Physical Therapy [facility] [address] [place] [address] / REHABILITATION SERVICES DISCHARGE SUMMARY MR#: [id number] Acct: [id number] Name: MARIAN BARBER Rep #: [id number] : 1985 38 From: Edilson Fuentes DPT, OCS, CSCS Referring Dr.: Dr. Koko Fernandez MD Status: REG RCR Insurance: [employer] SELF PAY INSURANCE Discharge Summary D/C summary: It has been my pleasure to treat MARIAN BARBER referred by Dr. Koko Fernandez MD, with the diagnosis of L ankle instability for a total of 3 visit(s). Discharge Date: 08/14/23 Please see the following information for a summary of their discharge status. Subjective Subjective: Ankle is really good. No pain in 2 weeks. HEP going well. ROM is better. Life is normal. Still feels alittle loss of ROM. Overall Improvement % Improvement: 95 Objective Objective/Function: 15 degrees of everison, 5 degrees DF. Walking normal dips with foam are 2-3 at a time before needing to touch. Goals Goal 1:: I appropriate ROM adn strength adn proprioceptive ex to limit chances of futre problems. Goal Progress: Goal Met Goal 2:: Maintain painfree status after being off prednisone and starting preventative ex. Goal Progress: Goal Met Plan Plan: d/c D/C Information Discharge Comments: Top continue via HEP and see doctor in about two weeks. d/c sentence: If there are questions or concerns regarding this patient's physical therapy, please feel free to call me at [phone]. Thank you for the referral of thispatient. Sincerely, Edilson Fuentes, SABRINA, OCS, CSCS Balance/Gait/Functional tests Balance/Special Test Scores Lower Extremity Functional Score: 77 Improvement % Improvement: 95 <Electronically signed by Edilson Fuentes DPT, OCS, CSCS> 08/14/23 0908 CC: Dr. Saroj Michel, DO; Dr. Koko Fernandez MD ~ EBG Signed [facility] Work Phone: 1(436) 341-477702-20-2024 Instructions* Patient Instructions* Frieda Heredia PA - 07/16/2023 7:24 PM EST [facility] PATIENT INFO INFLUENZA INTRODUCTION Influenza (commonly called the flu) is a highly contagious illness that can occur in children or adults of any age. It occurs more often in the winter months because people spend more time in close contact with one another. The flu is spread easily from newlnk-dc-suazla by coughing, sneezing, or touching surfaces. Every [...] age of 65, people who live in alf care facilities (nursing homes), and those with [...] you to feel better, but will not makethe flu go away faster. Rest until the flu is fully resolved, especially if the illness has been severe Fluids -- Drink enough fluids so that you do not become dehydrated. One way to in home caregiver if you are drinking enough is to look at the color of your urine. Normally, urine should be light yellow to nearlycolorless. If you are drinking enough, you should [...] of the flu such as bacterial pneumonia, earinfection, or sinusitis. Antibiotics can cause side effects and lead to development of antibiotic resistance. documented in this encounterVan Wert [facility] Hospital02-20-2024 History of Present illness Narrative* Frieda Heredia PA - 07/16/2023 7:14 PM EST This note was created using Jack Robieter. Subjective Marian Barber is a 37 year old male. HPI 37-year-old male presents for fever, cough and congestion x 2 days. Patient states on Saturday hestarted getting fever, cough and congestion. He has [...] any inhalers. 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 PAST MEDICAL [...] Take 1 capsule by mouth once daily for30 days. Do not start before July 31, [...] Onset Diabetes Maternal Grandfather Heart Maternal Grandmother AK, CHF other (lupus) Maternal Grandmother Alzheimer's Disease [...] ER evaluation. WILMER Hackett documented in this encounterVan Wert [facility] Hospital12-11-2023 Miscellaneous Notes* Telephone Encounter - Hien Rivas APRN.CNP - 05/06/2023 12:51 PM EST PDMP website checked and validated. All prescriptions have been APPROPRIATELY filled. No suspiciousactivity was identified. 05/06/2023 by Hien Rivas APRN.CNP The following approved medication requests have been transmitted electronically. Requested Prescriptions Signed Prescriptions Disp Refills lisdexamfetamine (VYVANSE) 70 mg capsule 30 capsule 0 Sig: Take 1 capsule by mouth once daily for 30 days. Authorizing Provider: HIEN RIVAS APRN.CNP * Telephone Encounter - Andreina Valencia LPN - 05/06/2023 10:43 AM EST Vanessa--01/23/23 Nov--06/05/23 Last refill--05/03/23 30 with 0 refills Last labs--02/28/23 documented in this encounterVan Wert County Hospital12-11-2023 Miscellaneous Notes* Telephone Encounter - Andreina Valencia LPN - 05/06/2023 10:36 AM EST Vanessa--01/23/23 Nov--06/05/23 Last refill--02/04/23 90 with 1 refill Last labs--01/23/23 documented in this encounterVan Wert [facility] Hospital12-08-2023 Miscellaneous Notes* Telephone Encounter - Hien Rivas APRN.CNP - 05/03/2023 2:31 PM EST PDMP website checked and validated. All prescriptions have been APPROPRIATELY filled. No suspiciousactivity was identified. 05/03/2023 by Hien Rivas APRN.CNP The following approved medication requests have been transmitted electronically. Requested Prescriptions Signed Prescriptions Disp Refills lisdexamfetamine (VYVANSE) 70 mg capsule 30 capsule 0 Sig: Take 1 capsule by mouth once daily for 30 days. Authorizing Provider: HIEN RIVAS APRN.CNP * Telephone Encounter - Jasson Girard RN - 05/03/2023 11:04 AM EST Patient has been identified by name and date of : Yes, Provider Michel Date 05-03-23 Time 11:05 am Spouse phones [...] 06/22/2021 25 Please advise. Thank you. Jasson Girard RN. documented in this encounterVan Wert County Hospital11-14-2023 Miscellaneous Notes* Telephone Encounter - Ana Lorenzo RN - 04/09/2023 11:53 AM EST Patient's calls and states that patient took his last dose of medication this morning. * Telephone Encounter - Hafsa Bolden MA - 04/08/2023 8:53 AM EST Patient has been identified by name and [...] 06/05/23 Hafsa Bolden MA documented in this encounterVan Wert County Hospital10-10-2023 Miscellaneous Notes* Telephone Encounter - Bee Garland Cma - 03/05/2023 9:02 AM EDT Patient notified and verbalized understanding Bee Garland Cma * Telephone Encounter - Luis Alfredo Olivera APRN.CNP - 03/05/2023 8:36 AM EDT The following approved medication requests have been transmitted electronically. Requested Prescriptions Signed Prescriptions Disp Refills lisdexamfetamine (VYVANSE) 70 mg capsule 30 capsule 0 Sig: Take 1 capsule by mouth once daily for 30 days. Authorizing Provider: LUIS ALFREDO OLIVERA APRN.CNP PDMP website checked and validated. All prescriptions have been APPROPRIATELY filled. No suspiciousactivity was identified. 03/05/2023 by Luis Alfredo Olivera CNP. * Telephone Encounter - Mimi Jerez - 03/04/2023 7:55 AM EDT Images from the original note were not included. Please see pt mychart message- Marian Gopi Barber [facility] My Chart Rx Pool (supporting Saroj Michel DO) 9 hours ago (10:29 PM) DW Good evening, I just looked at my medication bottle, and I have 5 pills left of the Vyvanse 60mg. I am noticing aslight change in the way I feel with it, but I think maybe we should try 70mg. Thank you! RX pended for review. Last refilled 02/06/2023 #30 0 refills. Last office visit- 01/23/2023. Pt requesting increase in dosage. Mimi Jerez MA documented in this encounterVan Wert County Hospital09-13-2023 Miscellaneous Notes* Telephone Encounter - Hien Rivas APRN.CNP - 02/06/2023 5:10 PM EDT PDMP website checked and validated. All prescriptions have been APPROPRIATELY filled. No suspiciousactivity was identified. 02/06/2023 by Hien Rivas APRN.CNP . The following approved medication requests have been transmitted electronically. Requested Prescriptions Signed Prescriptions Disp Refills lisdexamfetamine (VYVANSE) 60 mg capsule 30 capsule 0 Sig: Take 1 capsule by mouth once daily for 30 days. Authorizing Provider: HIEN RIVAS APRN.PAINTING TECHNICIAN * Telephone Encounter - Marilu Conklin LPN - 02/06/2023 4:33 PM EDT Patient calling back asking to have rx sent to [facility] please. Pending rx to file. [...] medication: Not applicable Please advise. Thank you. Marilu Conklin LPN * Telephone Encounter - Dulce Maria Chilel RN - 02/06/2023 3:50 PM EDT Pts called in and reports [facility] [place] [facility] not [facility] to get [facility] Vyvanse 60 mgs in. states she is going to see if they can get to 50 mg and 10 mg in, if not she is going to have us send the medication to [facility] pharmacy. documented in this encounterVan Wert County Hospital09-11-2023 Miscellaneous Notes* Telephone Encounter - Andreina Valencia LPN - 02/04/2023 12:38 PM EDT Vanessa-01/23/23- Nov--06/05/23 Last refill--07/25/22 30 with 1 refill Last labs--01/23/23 documented in this encounterVan Wert County Hospital09-01-2023 Miscellaneous Notes* Telephone Encounter - Loni Sanz LPN - 01/25/2023 9:29 AM EDT Pt. informed. Loni Sanz LPN * Telephone Encounter - Saroj Michel DO - 01/25/2023 7:51 AM EDT Please inform patient that his labs are all normal except he is in the prediabetes range with a1c at 5.7%. make sure he is cutting back on sugars and starches in his diet. Saroj Michel DO documented in this encounterVan Wert County Hospital08-30-2023 History of Present illness Narrative* Saroj Michel DO - 01/23/2023 9:40 AM EDT CC: Marian Barber is a 37 year old male who [...] night that wakes up coughing, mostly when eatingspicy or red sauce foods for supper. Low [...] Onset Diabetes Maternal Grandfather Heart Maternal Grandmother AK, CHF other (lupus) Maternal Grandmother Alzheimer's Disease [...] kg (202 lb) Height: 170 cm (5' 6.93) Gen: A&O, NAD, non-toxic appearing, Pleasant, cooperative [...] Improved/resolved with PHYSICAL THERAPY and exercise Saroj Michel DO To ER if develops chest pain, shortness of breath, or severe worsening of symptoms. Discussed risks, benefits, alternatives, and potential side effects of medications. Patient expressed understanding and agreed with the plan. Saroj Michel DO [address] [place] [address] documented in this encounterVan Wert County Hospital08-02-2023 Miscellaneous Notes* Telephone Encounter - Hien Rivas APRN.CNP - 12/26/2022 9:40 AM EDT PDMP website checked and validated. All prescriptions have been APPROPRIATELY filled. No suspiciousactivity was identified. 12/26/2022 by Hien Rivas APRN.CNP The following approved medication requests have been transmitted electronically. Requested Prescriptions Signed Prescriptions Disp Refills lisdexamfetamine (VYVANSE) 50 mg capsule 30 capsule 0 Sig: Take 1 capsule by mouth once daily for 30 days. Authorizing Provider: HIEN RIVAS APRN.CNP * Telephone Encounter - Shana Pacheco Ma - 12/25/2022 10:52 AM EDT Last office visit: 07/25/22 F/u scheduled: 01/23/23 Last refilled on: Vyvanse #30 on 10/19/22 Shana Pacheco Ma documented in this encounterVan Wert County Hospital03-23-2023 Discharge summary Author Edilson Fuentes [facility] August 16, 2022 10:19am Note Date/Time August 16, 2022 10: 19am [facility] Physical Therapy [address] [place] [address] / REHABILITATION SERVICES DISCHARGE SUMMARY MR#: [id number] Acct: [id number] Name: MARIAN BARBER Rep #: [id number] : 1985 37 From: Edilson Fuentes DPT, OCS, CSCS Referring Dr.: MAURY Goodman Status: REG RCR Insurance: [employer] SELF PAY INSURANCE It has been my pleasure to treat MARIAN BARBER referred by Dr. Funmi Goodman DC, with the diagnosis of Segmental and somatic dysfunction of lumbar, Pelvis for a total of 9 visit(s). Discharge Date: 08/16/22 Please see the following information for a summary of their discharge status. Subjective: I am better. I can move a lot more. Move more with less pain.90% better but still slower at baseball practice. Pain not an issue in last 5 weeks. Activities normal at home just slow. Work is normal at this point but has not been tested. No f/u with doctor. Will continue HEP and get back to normal gymroutine. Bilateral Back Pain Intensity (Out of 10): 0 % Improvement: 90 Objective/Function: Full lumbar ROM without pain or hesitation today. Good symmetrical hip flexor strength at 5/5 without pain. 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 with job demands 80% of the time Goal Progress: Goal Met Goal 3:: Patient to improve lumbar ROM for function of recovery to tie shoes andlifting Goal 4:: Patient to demonstrate 90% improvement with increase function and less pain Goal Progress: Goal Met Goal 5:: Patient to increase peak force of hip flexion by 10 to improve function Goal Progress: Goal Met Goal 6:: Patient to improve back oswestry score by 5 points or > to improve QOL and job demands Goal Progress: Goal Met Plan: d/c If there are questions or concerns regarding this patient's physical therapy, please feel free to call me at [phone]. Thank you for the referral of thispatient. Sincerely, Edilson Fuentes, DPT, OCS, CSCS Balance/Gait/Functional tests - Balance/Special Test Scores Oswestry Low Back Score: 9 <Electronically signed by Edilson HAYST, OCS, CSCS> 08/16/22 1019 CC: MAURY Goodman; Dr. Saroj Michel, DO ~ EBG Signed [facility] Work Phone: 1(351) 788-538703-13-2023 Miscellaneous Notes* Telephone Encounter - Marla Gabriela WISE - 08/06/2022 12:06 PM EDT Pt notified via my chart. * Telephone Encounter - Marla Ochoa LPN - 08/06/2022 11:51 AM EDT Images from the original note were not included. Prior authorization approved Payer: [facility] [phone] Your PA request has been approved. Additional information will be provided in the approval communication. (Message 1145) Approval Details Authorized from August 06, 2022 to August 06, 2023 * Telephone Encounter - Marla Ochoa LPN - 08/06/2022 11:41 AM EDT Electronic PA requested. * Telephone Encounter - Jasson Girard RN - 08/06/2022 11:32 AM EDT Prior Authorization Documentation Prior authorization requested for the following medication: Medication: Vyvanse 50 mg Provider: [employer] Company Name: [employer] Phone number: [phone] Patient ID number: [id number] [facility]acy Name: [facility] Patient reports he has 5 pills left. Please notify him when medication has been prior authorized ornot. documented in this encounterVan Wert County Hospital03-01-2023 History of Present illness Narrative* Saroj Michel DO - 07/25/2022 9:07 AM EST CC: Marian Barber is a 36 year old male who [...] was seen in the EMERGENCY DEPARTMENT at [facility] PAST MEDICAL HISTORY Diagnosis Date ADD (attention deficit disorder) diagnosed as a child GERD (gastroesophageal reflux disease) Hypercholesteremia Knee pain, bilateral Traumatic brain injury (HCC) 2011 [facility] IED; Residual headache, hearing loss, vision [...] Take 1 capsule by mouth once daily for30 days. Do not start before September 24, 2022. [START ON 08/25/2022] lisdexamfetamine (VYVANSE) 50 mg capsule Take 1 capsule by mouth once daily for30 days. Do not start before August 25, 2022. [START ON 07/28/2022] lisdexamfetamine (VYVANSE) 50 mg capsule Take 1 capsule by mouth once daily for30 days. Do not start before July 28, 2022. SUMAtriptan (IMITREX) 100 mg tablet Take 1 tablet by mouth as needed. take at onset of migraine, May repeat in 1 hour if needed. limit 2 doses in 24 hours. No current facility-administered medications for this visit. ALLERGIES Allergen Reactions Amoxicillin Hives Tali Ds [Sulfamet* Hives Social History Tobacco Use Smoking status: Never Smokeless tobacco: Current Types: Chew Tobacco comments: chews tobacco Substance Use Topics Alcohol use: Yes Comment: rare ROS: See HPI PE: BP 118/80 Pulse 80 Temp (Src) 97 (Right Tympanic) Resp 16 Wt 208 lb (94.3kg) Gen: A&OX3, NAD, non-toxic appearing HEENT: PERRLA, EOMs intact b/l, nares without drainage, pharynx without erythema, exudate, lesions,or drainage. Uvula midline. Neck: No LAD, no thyromegaly, no meningismus. CV: RRR, no murmur Lungs: CTA b/l, no wheezing Skin: No rashes, lesions, or wounds on exposed skin. No flank pain Abd: overweight, NT, ND Reduced ROM lumbar spine Pain with SLR b/l DTR 1/4 b/l patellar, slightly diminished ASSESSMENT/PLAN: 1. Gastroesophageal [...] TABLET - TIZANIDINE 4 MG TABLET Saroj Michel DO PDMP website checked and validated. All prescriptions have been APPROPRIATELY filled. No suspiciousactivity was identified. 07/25/2022 by Saroj Michel DO Return if no improvement. Follow up with Saroj Michel DO. To ER if develops chest pain, shortness of breath Discussed risks, benefits, alternatives, and potential side effects of medications. Patient/Guardian expressed understanding and agreed with the plan. See patient instructions. Saroj Michel DO [address] [place] [address] documented in this encounterVan Wert County Hospital02-19-2023 History of Present illness Narrative* Amelia Chicas APRN.PAINTING TECHNICIAN - 07/15/2022 12:29 PM EST Images from the original note were not included. Subjective Patient came in with complaints of lower back pain. Patient says when he is just sitting still in achair it is like a 3 or 4. 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 Patient has had this happen before and was seeing chiropractors for it. Patient did see a chiropractor this past Saturday with no relief. Patient's had to miss work. The history is provided by the patient. No speech language pathologist travel was used. Back Pain Review of Systems [...] pain, bilateral Traumatic brain injury (HCC) 2011 [facility] IED; Residual headache, hearing loss, vision [...] Onset Diabetes Maternal Grandfather Heart Maternal Grandmother [place], CHF other (lupus) Maternal Grandmother Alzheimer's Disease [...] sooner. Amelia Chicas APRN.JASMINA documented [facility] Miscellaneous Notes* Telephone Encounter - Shana Pacheco Ma - 07/02/2022 6:39 PM EST Last office visit: 01/31/22 F/u scheduled: 07/25/22 Last refilled on: Vbrucee #[id number] on 05/08/22 Shana Pacheco Ma documented in this encounterVan [facility] Miscellaneous Notes* Telephone Encounter - Saroj Michel DO - 05/08/2022 10:22 AM EST PDMP website checked and validated. All prescriptions have been APPROPRIATELY filled. No suspiciousactivity was identified. 05/08/2022 by Saroj Michel DO * Telephone Encounter - Berkley Haskins LPN - 05/08/2022 8:34 AM EST Last refill 04/02/22 Qty: 30 with 0 refills [facility] 01/31/22 NOV 07/25/22 Berkley Haskins LPN documented in this encounterVan [facility]09-[facility] History of Present illness Narrative* Hien Hyatt APRN.PAINTING TECHNICIAN - 01/31/2022 7:18 AM EDT This Team Access Model visit is a virtual encounter. It required patient- provider interaction for the medical decision making as documented below. Patient agrees to the visit: Yes Patient Location: [place] CC: Patient presents with: Medication Problem HPI Marian Barber is a 36 year old male who is contacted today for a virtual visit. This is an established patient of Dr. Saroj Michel DO. Marian is a new patient to [...] pain, bilateral Traumatic brain injury (HCC) 2011 [place] IED; Residual headache, hearing loss, vision dominguez [...] Onset Diabetes Maternal Grandfather Heart Maternal Grandmother [place], CHF other (lupus) Maternal Grandmother Alzheimer's Disease [...] All prescriptions have been APPROPRIATELY filled. No suspiciousactivity was identified. 01/31/2022 by Hien Hyatt APRN.CNP 2. Headaches due to old head injury [...] approximately 15 minutes in counseling regarding medications. Hien Hyatt APRN.CNP documented in this encounterVan [facility]07-18-2022 Miscellaneous Notes* Telephone Encounter - Luis Alfredo Olivera APRN.CNP - 12/11/2021 10:55 AM EDT The following approved medication requests have been transmitted electronically. Signed Prescriptions Disp Refills lisdexamfetamine (VYVANSE) 50 mg capsule 30 capsule 0 Sig: Take 1 capsule by mouth once daily for 30 days. RONI Class: C-II AMANDA: No Authorizing Provider: LUIS ALFREDO OLIVERA APRN.CNP PDMP website checked and validated. All prescriptions have been APPROPRIATELY filled. No suspiciousactivity was identified. 12/11/2021 by Luis Alfredo Olivera CNP. * Telephone Encounter - Emelia Thapa LPN - 12/11/2021 8:35 AM EDT Patient phones requesting refills as follows: Pending Prescriptions Disp Refills LISDEXAMFETAMINE 50 MG CAPSULE 30 capsule 0 Sig: Take 1 capsule by mouth once daily for 30 days. RONI Class: C-II AMANDA: No VANESSA-06/19/21 Labs-06/22/21 NOV-none med filled 08/13/21 ends 09/12/21 Please review and advise. Emelia Thapa LPN [facility]* Diagnosis Attention deficit disorder (ADD) in adult [facility] Diagnosis Onset Date Resolution Status Gastroesophageal reflux disease noneactive [facility] Work Phone: Evaluation note* Diagnosis Attention deficit disorder (ADD) in adult- Primary Headaches due to old head injury Post-traumatic headache, unspecified [facility]* Diagnosis Onset Date Resolution Status Segmental and somatic dysfunction of cervical region acute Segmental and somatic dysfunction of lumbar region acute Segmental and somatic dysfunction of pelvic region acute Segmental and somatic dysfunction of thoracic region acute Back pain noneactive Segmental and somatic dysfunction of cervical region acute Segmental and somatic dysfunction of lumbar region acute Segmental and somatic dysfunction of pelvic region acute Segmental and somatic dysfunction of thoracic region acute Back pain noneactive Segmental and somatic dysfunction of cervical region acute Segmental and somatic dysfunction of lumbar region acute Segmental and somatic dysfunction of pelvic region acute Segmental and somatic dysfunction of thoracic region acute Back pain noneactive Segmental and somatic dysfunction of cervical region acute Segmental and somatic dysfunction of lumbar region acute Segmental and somatic dysfunction of pelvic region acute Segmental and somatic dysfunction of thoracic region acute Back pain noneactive Segmental and somatic dysfunction of cervical region acute Segmental and somatic dysfunction of lumbar region acute Segmental and somatic dysfunction of pelvic region acute Segmental and somatic dysfunction of thoracic region acute Back pain noneactive [facility] Work Phone: Evaluation note* Diagnosis Attention deficit disorder (ADD) in adult [facility]* Diagnosis Attention deficit disorder (ADD) in adult [facility]* Diagnosis Acute midline low back pain without sciatica- Primary [facility]* Diagnosis Gastroesophageal reflux disease without esophagitis- Primary Esophageal reflux Attention deficit disorder (ADD) in adult Headaches due to old head injury Post-traumatic headache, unspecified Dyslipidemia Other and unspecified hyperlipidemia Ureterolithiasis Calculus of ureter Radiculopathy of lumbar region Thoracic or lumbosacral neuritis or radiculitis, unspecified Chronic midline low back pain with bilateral sciatica documented in [facility]* Diagnosis Onset Date Resolution Status Segmental and somatic dysfunction of cervical region acute Segmental and somatic dysfunction of lumbar region acute Segmental and somatic dysfunction of pelvic region acute Segmental and somatic dysfunction of thoracic region acute Back pain noneactive 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 acute Segmental and somatic dysfunction of cervical region acute Segmental and somatic dysfunction of lumbar region acute Segmental and somatic dysfunction of pelvic region acute Segmental and somatic dysfunction of thoracic region acute Back pain noneactive Segmental and somatic dysfunction of cervical region acute Segmental and somatic dysfunction of lumbar region acute Segmental and somatic dysfunction of pelvic region acute Segmental and somatic dysfunction of thoracic region acute Back pain noneactive Segmental and somatic dysfunction of cervical region acute Segmental and somatic dysfunction of lumbar region acute Segmental and somatic dysfunction of pelvic region acute Segmental and somatic dysfunction of thoracic region acute Back pain noneactive [facility] Work Phone: Evaluation note* Diagnosis Attention deficit disorder (ADD) in adult [facility] Diagnosis Well adult exam- Primary Routine general medical examination at a [facility] care facility Gastroesophageal reflux disease without esophagitis Esophageal reflux Attention deficit disorder (ADD) in adult Chronic midline low back pain with bilateral sciatica documented [facility]* Diagnosis Gastroesophageal reflux disease without esophagitis Esophageal reflux [facility] Attention deficit disorder (ADD) in adult documented [facility]* Diagnosis Attention deficit disorder (ADD) in adult [facility] Diagnosis Attention deficit disorder (ADD) in adult [facility]* Diagnosis Influenza A- Primary Influenza with other respiratory manifestations URI, acute Acute upper respiratory infections of unspecified site documented [facility]* Diagnosis Onset Date Resolution Status Left ankle instability acute Back pain acute Segmental and somatic dysfunction of cervical region acute Segmental and somatic dysfunction of lumbar region acute Segmental and somatic dysfunction of pelvic region acute Segmental and somatic dysfunction of thoracic region acute 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 acute [facility] Work Phone: Evaluation note* Diagnosis Gastroesophageal reflux disease without esophagitis Esophageal reflux [facility]* Diagnosis Attention deficit disorder (ADD) in adult documented [facility]* Diagnosis Palpitations- Primary Attention deficit disorder (ADD) in adult Gastroesophageal reflux disease without esophagitis Esophageal reflux Headaches due to old head injury Post-traumatic headache, unspecified documented [facility]* Diagnosis Attention deficit disorder (ADD) in adult documented in [facility]* Diagnosis Attention deficit disorder (ADD) in adult documented in [facility]* Diagnosis Attention deficit disorder (ADD) in adult documented in [facility]* Diagnosis Attention deficit disorder (ADD) in adult documented in [facility]* Diagnosis Rectal bleed- Primary Hemorrhage of rectum and anus Rectal pain Anal or rectal pain documented in [facility]* Diagnosis Anal fissure- Primary Rectal bleed Hemorrhage of rectum and anus Rectal pain Anal or rectal pain documented in [facility]* Diagnosis Anal fissure- Primary documented in this [facility]* Diagnosis Anal fissure- Primary documented in [facility]* Diagnosis Attention deficit disorder (ADD) in adult- Primary Gastroesophageal reflux disease without esophagitis Esophageal reflux Tobacco use disorder Anal fissure 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 Anal fissure documented in this [facility]* Diagnosis Attention deficit disorder (ADD) in adult Gastroesophageal reflux disease without esophagitis Esophageal reflux documented in [facility]* Diagnosis Anal fissure- Primary documented in this encounter [facility] note* Diagnosis Attention deficit disorder (ADD) in adult documented in this encounter [facility] note* Diagnosis Attention deficit disorder (ADD) in adult documented in this encounter [facility] note* Diagnosis Attention deficit disorder (ADD) in adult documented in this [facility]* Diagnosis Well adult exam- Primary Routine general medical examination at a health care facility Headaches due to old head injury Post-traumatic headache, unspecified Gastroesophageal reflux disease without esophagitis Esophageal reflux Attention deficit disorder (ADD) in adult Anal fissure documented in [facility]* Diagnosis Irritation of left ear- Primary documented in [facility]* Diagnosis Attention deficit disorder (ADD) in adult documented in this encounter [facility] for referral (narrative)* Diagnostic Procedure Only (Urgent) - Pending Review Specialty Diagnoses / Procedures Referred By John t Referred To Contact XR IMAGING Diagnoses Acute midline low back pain without sciatica Procedures XR SACRUM/COCCYX 3V AP/LAT RADEX SACRUM & COCCYX MINIMUM 2 VIEWS Amelia Chicas APRN.PAINTING TECHNICIAN [address] [place] [address] Xr Imaging Referral ID Status Reason Start Date Expiration Date Visits Requested Visits Authorized [id number] Pending Review Auto-Generat ed Referral 07/15/2022 08/14/2023 1 1 * Diagnostic Procedure Only (Urgent) - Pending Review Specialty Diagnoses / Procedures Referred By Contac t Referred To Contact XR IMAGING Diagnoses Acute midline low back pain without sciatica Procedures XR LUMBAR GENERAL 3V AP/LAT/L5-S1 RADEX SPINE LUMBOSACRAL 2/3 VIEWS Amelia Chicas APRN.PAINTING TECHNICIAN [address] [place] [address] Xr Imaging Referral ID Status Reason Start Date Expiration Date Visits Requested Visits Authorized [id number] Pending Review Auto-Generat ed Referral 07/15/2022 08/14/2023 1 1 * Medication Prior Authorization - Pending Review Specialty Diagnoses / Procedures Referred By Contac t Referred To Contact Diagnoses Acute midline low back pain without sciatica Amelia Chicas APRN.PAINTING TECHNICIAN [address] [place] [address] Referral ID Status Reason Start Date Expiration Date V isits Requested Visits Authorized [id number] Pending Review 1 1 [facility] (narrative)No reason for referral information availableSt. [facility] Work Phone: Summary Purpose Family History No Family History Records FoundNo Family History Records FoundNo Family History Records FoundNo Family History Records Found Advance Directives Advance Directive Response Recorded Date/ Time Living Will No June 02 201 8 10:40pm Power of Instructor [place] No June 02, 2 018 10:40pm Advance Directive Response Recorded Date/ Time Living Will No April 25 10:36am Power of Instructor [place] No April 25, 2022 10:36am Advance Directive Response Recorded Date/ Time Living Will No April 25 11:36am Power of Instructor [place] No April 25, 2022 11:36am Advance Directive Response Recorded Date/ Time Living Will No November 22, 2022 8:06am Power of Instructor [place] No November 22 8:06am Chief Complaint and Reason for Visit Chief Complaint Gastroesophageal ref lux disease (GERD) GERD Reason for Visit Gastroesophageal ref lux disease Chief Complaint GERD Back pain XRAY LBP Back pain WFD/EKG/PFT/TB Back pain Back pain flank pain Reason for Visit Segmental and somati c dysfunction of cervical region Segmental and somatic dysfunction of lumbar region Segmental and somatic dysfunction of pelvic region Segmental and somatic dysfunction of thoracic region Back pain Segmental and somatic dysfunction of cervical region Segmental and somatic dysfunction of lumbar region Segmental and somatic dysfunction of pelvic region Segmental and somatic dysfunction of thoracic region Back pain Segmental and somatic dysfunction of cervical region Segmental and somatic dysfunction of lumbar region Segmental and somatic dysfunction of pelvic region Segmental and somatic dysfunction of thoracic region Back pain Segmental and somatic dysfunction of cervical region Segmental and somatic dysfunction of lumbar region Segmental and somatic dysfunction of pelvic region Segmental and somatic dysfunction of thoracic region Back pain Segmental and somatic dysfunction of cervical region Segmental and somatic dysfunction of lumbar region Segmental and somatic dysfunction of pelvic region Segmental and somatic dysfunction of thoracic region Back pain Chief Complaint flank pain Back pain WFD Physical WFD Hearing/vision Back pain Back pain Back pain DYSFUNCTION OF LUMBAR,PELVIC REGION/RX HERE Reason for Visit Segmental and somati c dysfunction of cervical region Segmental and somatic dysfunction of lumbar region Segmental and somatic dysfunction of pelvic region Segmental and somatic dysfunction of thoracic region Back pain 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 Segmental and somatic dysfunction of cervical region Segmental and somatic dysfunction of lumbar region Segmental and somatic dysfunction of pelvic region Segmental and somatic dysfunction of thoracic region Back pain Segmental and somatic dysfunction of cervical region Segmental and somatic dysfunction of lumbar region Segmental and somatic dysfunction of pelvic region Segmental and somatic dysfunction of thoracic region Back pain Segmental and somatic dysfunction of cervical region Segmental and somatic dysfunction of lumbar region Segmental and somatic dysfunction of pelvic region Segmental and somatic dysfunction of thoracic region Back pain Chief Complaint LEFT ANKLE Room 1 REEVAL AUDIOGRAM/TITMUS/ WCFD L ANKLE INSTABILITY. 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 Chief Complaint Admit Date AUDIOGRAM, TITMUS / WFD 2024 7:35am FF PHYSICAL/ WFD 2024 8:30 am R FOOT PAIN November 23, 2024 8:40 am 1st MTP pain- RIGHT FOOT November 23, 2024 9:35am Reason for Visit Admit Date 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 administrator health examina tion 2024 8:30am Reason for Visit Admit Date 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 administrator health examina tion 2024 8:30am Right foot strain November 23, 2024 8:40 am Reason for Referral Specialty Diagnoses / Procedures Referred By John schulz Referred To Contact MR IMAGING Diagnoses Radiculopathy of lumbar region Chronic midline low back pain with bilateral sciatica Procedures MRI LUMBAR SPINE WO [facility] MRI SPINAL CANAL LUMBAR W/O CONTRAST MATERIAL Saroj Michel, DO [address] [place] [address] Mr Imaging Referral ID Status Reason Start Date Expiration Date Visits Requested Visits Authorized [id number] Pending Review Auto-Generat ed Referral 07/25/2022 08/24/2023 1 1 Specialty Diagnoses / Procedures Referred By John schulz Referred To Contact Diagnoses Attention deficit disorder (ADD) in adult Saroj Michel, DO [address] [place] [address] Referral ID Status Reason Start Date Expiration Date V isits Requested Visits Authorized [id number] Authorized 11/19/2023 11/18/2024 1 1 Specialty Diagnoses / Procedures Referred By John schulz Referred To [facility] Diagnoses Palpitations Procedures ECHO ECHO TTHRC R-T 2D W/WOM-MODE COMPL SPEC&COLR D Saroj Michel, DO [address] [place] [address] [facility] [address] [place] [address] Referral ID Status Reason Start Date Expiration Date Visits Requested Visits Authorized [id number] Pending Review Auto-Generat ed Referral 11/19/2023 11/18/2024 1 1 Specialty Diagnoses / Procedures Referred By Contac t Referred To Contact Colon and Rectal Surgery Diagnoses Rectal bleed Rectal pain Procedures CONSULT TO COLO-RECTAL SURGERY OFFICE/OUTPATIENT [facility] HIGH MDM 60 MINUTES Abdoulaye Sarabia MD [address] [place] [address] Referral ID Status Reason Start Date Expiration Date Visits Requested Visits Authorized [id number] Authorized PCP Requested Referral 4 04/10/2025 1 1 Specialty Diagnoses / Procedures Referred By Contac t Referred To Contact Diagnoses Gastroesophageal reflux disease without esophagitis Lilian Martinez PA-C [address] [place] [address] Referral ID Status Reason Start Date Expiration Date V isits Requested Visits Authorized [id number] Authorized 05/27/2024 06/02/2025 1 1 Additional Source Comments (unrecognized sect ion and content) No Status Records FoundNo Status Records FoundNo Status Records FoundNo Status Records Found INFORMATION SOURCE (unrecogn ized section and content) DATE CREATED AUTHOR 11/20/2017 [facility] DATE CREATED AUTHOR AUTHOR'S ORGANIZ ATION 10/31/2018 [facility] DATE CREATED AUTHOR AUTHOR'S ORGANIZ ATION 11/28/2024 [facility] DATE CREATED AUTHOR AUTHOR'S ORGANIZ ATION 01/20/2025 [facility] Source Comments (unrecognize d section and content) In the event this informatio n is protected by the Federal Confidentiality of Alcohol and Drug Abuse Patient Records regulations: The Federal rules restrict any use of the information to criminally investigate or prosecute any alcohol or drug abuse patient.[facility] the event this information is protected by the Federal Confidentiality of Alcohol and Drug Abuse Patient Records regulations: The Federal rules restrict any use of the information to criminally investigate or prosecute any alcohol or drug abuse patient.[facility] the event this information is protected by the Federal Confidentiality of Alcohol and Drug Abuse Patient Records regulations: The Federal rules restrict any use of the information to criminally investigate or prosecute any alcohol or drug abuse patient.[facility] the event this information is protected by the Federal Confidentiality of Alcohol and Drug Abuse Patient Records regulations: The Federal rules restrict any use of the information to criminally investigate or prosecute any alcohol or drug abuse patient.[facility] the event this information is protected by the Federal Confidentiality of Alcohol and Drug Abuse Patient Records regulations: The Federal rules restrict any use of the information to criminally investigate or prosecute any alcohol or drug abuse patient.[facility] the event this information is protected by the Federal Confidentiality of Alcohol and Drug Abuse Patient Records regulations: The Federal rules restrict any use of the information to criminally investigate or prosecute any alcohol or drug abuse patient.[facility] the event this information is protected by the Federal Confidentiality of Alcohol and Drug Abuse Patient Records regulations: The Federal rules restrict any use of the information to criminally investigate or prosecute any alcohol or drug abuse patient.[facility] the event this information is protected by the Federal Confidentiality of Alcohol and Drug Abuse Patient Records regulations: The Federal rules restrict any use of the information to criminally investigate or prosecute any alcohol or drug abuse patient.[facility] the event this information is protected by the Federal Confidentiality of Alcohol and Drug Abuse Patient Records regulations: The Federal rules restrict any use of the information to criminally investigate or prosecute any alcohol or drug abuse patient.[facility] the event this information is protected by the Federal Confidentiality of Alcohol and Drug Abuse Patient Records regulations: The Federal rules restrict any use of the information to criminally investigate or prosecute any alcohol or drug abuse patient.[facility] the event this information is protected by the Federal Confidentiality of Alcohol and Drug Abuse Patient Records regulations: The Federal rules restrict any use of the information to criminally investigate or prosecute any alcohol or drug abuse patient.[facility] the event this information is protected by the Federal Confidentiality of Alcohol and Drug Abuse Patient Records regulations: The Federal rules restrict any use of the information to criminally investigate or prosecute any alcohol or drug abuse patient.[facility] the event this information is protected by the Federal Confidentiality of Alcohol and Drug Abuse Patient Records regulations: The Federal rules restrict any use of the information to criminally investigate or prosecute any alcohol or drug abuse patient.[facility] HospitalIn the event this information is protected by the Federal Confidentiality of Alcohol and Drug Abuse Patient Records regulations: The Federal rules restrict any use of the information to criminally investigate or prosecute any alcohol or drug abuse patient.[facility] HospitalIn the event this information is protected by the Federal Confidentiality of Alcohol and Drug Abuse Patient Records regulations: The Federal rules restrict any use of the information to criminally investigate or prosecute any alcohol or drug abuse patient.[facility] HospitalIn the event this information is protected by the Federal Confidentiality of Alcohol and Drug Abuse Patient Records regulations: The Federal rules restrict any use of the information to criminally investigate or prosecute any alcohol or drug abuse patient.[facility] HospitalIn the event this information is protected by the Federal Confidentiality of Alcohol and Drug Abuse Patient Records regulations: The Federal rules restrict any use of the information to criminally investigate or prosecute any alcohol or drug abuse patient.[facility] HospitalIn the event this information is protected by the Federal Confidentiality of Alcohol and Drug Abuse Patient Records regulations: The Federal rules restrict any use of the information to criminally investigate or prosecute any alcohol or drug abuse patient.[facility] HospitalIn the event this information is protected by the Federal Confidentiality of Alcohol and Drug Abuse Patient Records regulations: The Federal rules restrict any use of the information to criminally investigate or prosecute any alcohol or drug abuse patient.[facility] HospitalIn the event this information is protected by the Federal Confidentiality of Alcohol and Drug Abuse Patient Records regulations: The Federal rules restrict any use of the information to criminally investigate or prosecute any alcohol or drug abuse patient.[facility] HospitalIn the event this information is protected by the Federal Confidentiality of Alcohol and Drug Abuse Patient Records regulations: The Federal rules restrict any use of the information to criminally investigate or prosecute any alcohol or drug abuse patient.[facility] HospitalIn the event this information is protected by the Federal Confidentiality of Alcohol and Drug Abuse Patient Records regulations: The Federal rules restrict any use of the information to criminally investigate or prosecute any alcohol or drug abuse patient.[facility] HospitalIn the event this information is protected by the Federal Confidentiality of Alcohol and Drug Abuse Patient Records regulations: The Federal rules restrict any use of the information to criminally investigate or prosecute any alcohol or drug abuse patient.[facility] HospitalIn the event this information is protected by the Federal Confidentiality of Alcohol and Drug Abuse Patient Records regulations: The Federal rules restrict any use of the information to criminally investigate or prosecute any alcohol or drug abuse patient.[facility] HospitalIn the event this information is protected by the Federal Confidentiality of Alcohol and Drug Abuse Patient Records regulations: The Federal rules restrict any use of the information to criminally investigate or prosecute any alcohol or drug abuse patient.[facility] HospitalIn the event this information is protected by the Federal Confidentiality of Alcohol and Drug Abuse Patient Records regulations: The Federal rules restrict any use of the information to criminally investigate or prosecute any alcohol or drug abuse patient.[facility] HospitalIn the event this information is protected by the Federal Confidentiality of Alcohol and Drug Abuse Patient Records regulations: The Federal rules restrict any use of the information to criminally investigate or prosecute any alcohol or drug abuse patient.[facility] HospitalIn the event this information is protected by the Federal Confidentiality of Alcohol and Drug Abuse Patient Records regulations: The Federal rules restrict any use of the information to criminally investigate or prosecute any alcohol or drug abuse patient.[facility] HospitalIn the event this information is protected by the Federal Confidentiality of Alcohol and Drug Abuse Patient Records regulations: The Federal rules restrict any use of the information to criminally investigate or prosecute any alcohol or drug abuse patient.[facility] HospitalIn the event this information is protected by the Federal Confidentiality of Alcohol and Drug Abuse Patient Records regulations: The Federal rules restrict any use of the information to criminally investigate or prosecute any alcohol or drug abuse patient.[facility] HospitalIn the event this information is protected by the Federal Confidentiality of Alcohol and Drug Abuse Patient Records regulations: The Federal rules restrict any use of the information to criminally investigate or prosecute any alcohol or drug abuse patient.[facility] HospitalIn the event this information is protected by the Federal Confidentiality of Alcohol and Drug Abuse Patient Records regulations: The Federal rules restrict any use of the information to criminally investigate or prosecute any alcohol or drug abuse patient.[facility] HospitalIn the event this information is protected by the Federal Confidentiality of Alcohol and Drug Abuse Patient Records regulations: The Federal rules restrict any use of the information to criminally investigate or prosecute any alcohol or drug abuse patient.[facility] HospitalIn the event this information is protected by the Federal Confidentiality of Alcohol and Drug Abuse Patient Records regulations: The Federal rules restrict any use of the information to criminally investigate or prosecute any alcohol or drug abuse patient.[facility] HospitalIn the event this information is protected by the Federal Confidentiality of Alcohol and Drug Abuse Patient Records regulations: The Federal rules restrict any use of the information to criminally investigate or prosecute any alcohol or drug abuse patient.[facility] HospitalIn the event this information is protected by the Federal Confidentiality of Alcohol and Drug Abuse Patient Records regulations: The Federal rules restrict any use of the information to criminally investigate or prosecute any alcohol or drug abuse patient.[facility] HospitalIn the event this information is protected by the Federal Confidentiality of Alcohol and Drug Abuse Patient Records regulations: The Federal rules restrict any use of the information to criminally investigate or prosecute any alcohol or drug abuse patient.[facility] HospitalIn the event this information is protected by the Federal Confidentiality of Alcohol and Drug Abuse Patient Records regulations: The Federal rules restrict any use of the information to criminally investigate or prosecute any alcohol or drug abuse patient.[facility] HospitalIn the event this information is protected by the Federal Confidentiality of Alcohol and Drug Abuse Patient Records regulations: The Federal rules restrict any use of the information to criminally investigate or prosecute any alcohol or drug abuse patient.[facility] HospitalIn the event this information is protected by the Federal Confidentiality of Alcohol and Drug Abuse Patient Records regulations: The Federal rules restrict any use of the information to criminally investigate or prosecute any alcohol or drug abuse patient.[facility] HospitalIn the event this information is protected by the Federal Confidentiality of Alcohol and Drug Abuse Patient Records regulations: The Federal rules restrict any use of the information to criminally investigate or prosecute any alcohol or drug abuse patient.[facility] HospitalIn the event this information is protected by the Federal Confidentiality of Alcohol and Drug Abuse Patient Records regulations: The Federal rules restrict any use of the information to criminally investigate or prosecute any alcohol or drug abuse patient.[facility] HospitalIn the event this information is protected by the Federal Confidentiality of Alcohol and Drug Abuse Patient Records regulations: The Federal rules restrict any use of the information to criminally investigate or prosecute any alcohol or drug abuse patient.[facility] HospitalIn the event this information is protected by the Federal Confidentiality of Alcohol and Drug Abuse Patient Records regulations: The Federal rules restrict any use of the information to criminally investigate or prosecute any alcohol or drug abuse patient.[facility] HospitalIn the event this information is protected by the Federal Confidentiality of Alcohol and Drug Abuse Patient Records regulations: The Federal rules restrict any use of the information to criminally investigate or prosecute any alcohol or drug abuse patient.[facility] HospitalIn the event this information is protected by the Federal Confidentiality of Alcohol and Drug Abuse Patient Records regulations: The Federal rules restrict any use of the information to criminally investigate or prosecute any alcohol or drug abuse patient.[facility] HospitalIn the event this information is protected by the Federal Confidentiality of Alcohol and Drug Abuse Patient Records regulations: The Federal rules restrict any use of the information to criminally investigate or prosecute any alcohol or drug abuse patient.[facility] HospitalIn the event this information is protected by the Federal Confidentiality of Alcohol and Drug Abuse Patient Records regulations: The Federal rules restrict any use of the information to criminally investigate or prosecute any alcohol or drug abuse patient.[facility] Reason for Visit (unrecogniz ed section and content) Reason Onset Date Comments Refill Request 12/08/2021 Reason Comments Medication Problem Reason Onset Date Comments Refill Request 05/07/2022 Reason Onset Date Comments Refill Request 07/02/2022 Reason Comments Back Pain X 7 days Reason Comments Follow Up Reason Comments Vyvanse PA Reason Onset Date Comments Refill Request 12/25/2022 [...] Up Reason Comments Results, Lab Reason Comments [facility] requesting fax order Reason Comments Refill Request Reason Onset Date Comments Refill Request 01/16/2024 Reason Onset Date Comments Refill Request 02/17/2024 Reason Onset Date Comments Refill Request 03/11/2024 Reason Onset Date Comments Refill Request 04/14/2024 Reason Comments Consult Specialty Diagnoses / Procedures Referred By Contac t Referred To Contact Colon and Rectal Surgery Diagnoses Rectal bleed Rectal pain Procedures CONSULT TO COLO-RECTAL SURGERY OFFICE/OUTPATIENT [facility] 60 MINUTES Abdoulaye Sarabia MD [address] [place] [address] Referral ID Status Reason Start Date Expiration Date V isits Requested Visits Authorized [id number] Closed PCP Requested Referral 04/17/2024 04/10/2025 1 1 Reason Comments Rectal Pain Reason Comments Follow Up Reason Onset Date Comments Refill Request 06/02/2024 Reason Comments Post Op Reason Onset Date Comments Refill Request 06/12/2024 Reason Onset Date Comments Refill Request 08/19/2024 Reason Comments Ear Problem Left ear pain, also dried blood in ear x 2 days Reason Onset Date Comments Refill Request 02/01/2025 Care Teams (unrecognized sec tion and content) Credit Administration Officer Relationship Specialty Start Date End Date Saroj Michel DO [address] [place] [address] PCP - General Family Practice 09/06/15 Credit Administration Officer Relationship Specialty Start Date End Date Saroj Michel, DO [address] [place] [address] PCP - General Family Practice 09/06/15 Credit Administration Officer Relationship Specialty Start Date End Date Saroj Michel DO [address] [place] [address] PCP - General Family Medicine 09/06/15 Credit Administration Officer Relationship Specialty Start Date End Date Saroj Michel DO [address] [place] [address] PCP - General Family Medicine 09/06/15 Credit Administration Officer Relationship Specialty Start Date End Date Saroj Michel DO [address] [place] [address] PCP - General Family Medicine 09/06/15 Credit Administration Officer Relationship Specialty Start Date End Date Saroj Michel DO [address] [place] [address] PCP - General Family Medicine 09/06/15 Credit Administration Officer Relationship Specialty Start Date End Date Saroj Michel DO [address] [place] [address] PCP - General Family Medicine 09/06/15 Team Status: Active Member Role Status Dates Dulce Maria Huston ASSAYER, ASSAYER-C Family Provider Active Dr. Saroj Michel , DO Primary Care Provider Active Team Status: Inactive Member Role Status Dates Dr. Saroj Michel , DO Primary Care Provider, Referr ing Provider Active Dr. Funmi Goodman DC Attending Provider Active Team Status: Inactive Member Role Status Dates Dr. Saroj Michel DO Primary Care Provider, Referr ing Provider Active Michael GUILLEN, PA Attending Provider Active Team Status: Inactive Member Role Status Dates Dr. Saroj Michel , DO Primary Care Provider Active Dr. Edilson Huddleston DO Attending Provider, Emergency P dyan Active Team Status: Inactive Member Role Status Dates Dr. Saroj Michel , DO Primary Care Provider Active Dr. Funmi Goodman DC Attending Provider, Referring Pro vider Active Credit Administration Officer Relationship Specialty Start Date End Date Saroj Michel DO [address] [place] [address] PCP - General Family Medicine 09/06/15 Credit Administration Officer Relationship Specialty Start Date End Date Saroj Michel DO [address] [place] [address] PCP - General Family Medicine 09/06/15 Credit Administration Officer Relationship Specialty Start Date End Date Saroj Michel DO [address] [place] [address] PCP - General Family Medicine 09/06/15 Credit Administration Officer Relationship Specialty Start Date End Date Saroj Michel DO [address] [place] [address] PCP - General Family Medicine 09/06/15 Credit Administration Officer Relationship Specialty Start Date End Date Saroj Michel DO [address] [place] [address] PCP - General Family Medicine 09/06/15 Credit Administration Officer Relationship Specialty Start Date End Date Saroj Michel DO [address] [place] [address] PCP - General Family Medicine 09/06/15 Credit Administration Officer Relationship Specialty Start Date End Date Saroj Michel DO [address] [facility] [address] PCP - General Family Medicine 09/06/15 Credit Administration Officer Relationship Specialty Start Date End Date Saroj Michel DO [address] [facility] [place] [address] PCP - General Family Medicine 09/06/15 Credit Administration Officer Relationship Specialty Start Date End Date Saroj Michel DO [address] [facility] [place] [address] PCP - General Family Medicine 09/06/15 Team Status: Inactive Member Role Status Dates Dr. Saroj Michel DO Primary Care Provider, Referr ing Provider Active Koko Fernandez MD Attending Provider Active Team Status: Inactive Member Role Status Dates Dr. Saroj Michel DO Primary Care Provider Active Dr. Ravin Malik MD Attending Provider Active Team Status: Inactive Member Role Status Dates Dr. Saroj Michel DO Primary Care Provider Active Koko Fernandez MD Attending Provider, Referring Prov ider Active Credit Administration Officer Relationship Specialty Start Date End Date Saroj Michel DO [address] [facility] [place] [place] [address] PCP - General Family Medicine 09/06/15 Credit Administration Officer Relationship Specialty Start Date End Date Saroj Michel DO [address] [facility] [place] [place] [address] PCP - General Family Medicine 09/06/15 Credit Administration Officer Relationship Specialty Start Date End Date Saroj Michel DO [address] [facility] [place] [place] [address] PCP - General Family Medicine 09/06/15 Credit Administration Officer Relationship Specialty Start Date End Date Saroj Michel DO [address] [place] [address] PCP - General Family Medicine 09/06/15 Credit Administration Officer Relationship Specialty Start Date End Date Saroj Michel DO [address] [place] [address] PCP - General Family Medicine 09/06/15 Credit Administration Officer Relationship Specialty Start Date End Date Saroj Michel DO [address] [place] [address] PCP - General Family Medicine 09/06/15 Credit Administration Officer Relationship Specialty Start Date End Date Saroj Michel DO [address] [place] [address] PCP - General Family Medicine 09/06/15 Credit Administration Officer Relationship Specialty Start Date End Date Saroj Michel DO [address] [place] [address] PCP - General Family Medicine 09/06/15 Credit Administration Officer Relationship Specialty Start Date End Date Saroj Michel DO [address] [place] [address] PCP - General Family Medicine 09/06/15 Hien Rivas, CATEGORY SPECIALIST.PAINTING TECHNICIAN [address] [place] [address] [facility] 05/03/24 Luis Alfredo Olivera, COLIN.PAINTING TECHNICIAN [address] [place] [address] [facility] 05/03/24 Credit Administration Officer Relationship Specialty Start Date End Date Saroj Michel DO [address] [facility] [address] PCP - General Family Medicine 09/06/15 Hien Rivas, CATEGORY SPECIALIST.PAINTING TECHNICIAN [address] [place] [address] [facility], CATEGORY SPECIALIST.PAINTING TECHNICIAN [address] [facility] [address] [facility] 05/03/24 Credit Administration Officer Relationship Specialty Start Date End Date Saroj Michel DO [address] [facility] [place] [place] [address] PCP - General Family Medicine 09/06/15 Hien Rivas, CATEGORY SPECIALIST.PAINTING TECHNICIAN [address] [facility] [place] [address] [facility] 05/03/24 [facility], CATEGORY SPECIALIST.PAINTING TECHNICIAN [address] [place] [address] [facility] 05/03/24 Credit Administration Officer Relationship Specialty Start Date End Date Saroj Michel DO [address] [place] [address] PCP - General Family Medicine 09/06/15 Hien Rivas, CATEGORY SPECIALIST.PAINTING TECHNICIAN [address] [place] [address] [facility] 05/03/24 [facility], CATEGORY SPECIALIST.PAINTING TECHNICIAN [address] [place] [address] [facility] 05/03/24 Credit Administration Officer Relationship Specialty Start Date End Date Saroj Michel DO [address] [place] [address] PCP - General Family Medicine 09/06/15 Hien Rivas, CATEGORY SPECIALIST.PAINTING TECHNICIAN [address] [place] [address] [facility] 05/03/24 [facility], CATEGORY SPECIALIST.PAINTING TECHNICIAN [address] [place] [address] [facility] 05/03/24 Credit Administration Officer Relationship Specialty Start Date End Date Saroj Michel DO [address] [place] [address] PCP - General Family Medicine 09/06/15 Hien Rivas, CATEGORY SPECIALIST.PAINTING TECHNICIAN [address] [place] [address] [facility] 05/03/24 [facility], CATEGORY SPECIALIST.PAINTING TECHNICIAN [address] [place] [address] [facility] 05/03/24 Credit Administration Officer Relationship Specialty Start Date End Date Saroj Michel DO [address] [place] [address] PCP - General Family Medicine 09/06/15 Hien Rivas, CATEGORY SPECIALIST.PAINTING TECHNICIAN [address] [place] [address] [facility] 05/03/24 Luis Alfredo Olivera APRN.PAINTING TECHNICIAN [address] [place] [address] [facility] 05/03/24 Credit Administration Officer Relationship Specialty Start Date End Date Saroj Michel DO [address] [place] [address] PCP - General Family Medicine 09/06/15 Hien Rivas APRN.PAINTING TECHNICIAN [address] [place] [address] [facility] 05/03/24 Luis Alfredo Olivera, CATEGORY SPECIALIST.PAINTING TECHNICIAN [address] [place] [address] [facility] 05/03/24 Credit Administration Officer Relationship Specialty Start Date End Date Saroj Michel DO [address] [place] [address] PCP - General Family Medicine 09/06/15 Luis Alfredo Olivera, CATEGORY SPECIALIST.PAINTING TECHNICIAN [address] [place] [address] [facility] 05/03/24 Credit Administration Officer Relationship Specialty Start Date End Date Saroj Michel DO [address] [place] [address] PCP - General Family Medicine 09/06/15 Luis Alfredo Olivera, CATEGORY SPECIALIST.PAINTING TECHNICIAN [address] [place] [address] [facility] 05/03/24 Credit Administration Officer Relationship Specialty Start Date End Date Saroj Michel DO [address] [place] [address] PCP - General Family Medicine 09/06/15 Luis Alfredo Olivera APRN.PAINTING TECHNICIAN [address] [place] [address] [facility] 05/03/24 Team Status: Active Member Role/Relationship Status Dates Dulce Maria Huston ASSAYER, ASSAYER-C Family Provider Active Dr. Saroj Michel DO Primary Care Provider Active Team Status: Inactive Member Role/Relationship Status Dates Dr. Saroj Michel DO Primary Care Provider Active Start: 2024 End: 2024 Dr. Saroj Michel DO Referring Provider Active Start: 2024 End: 2024 Blu GUILLEN PA Attending Provider Active Start: 2024 End: 2024 Team Status: Inactive Member Role/Relationship Status Dates Dr. Saroj Michel DO Primary Care Provider Active Start: 2024 End: 2024 Dr. Saroj Michel DO Referring Provider Active Start: 2024 End: 2024 WILMER Rogers Attending Provider Active Start: 2024 End: 2024 Team Status: Inactive Member Role/Relationship Status Dates Dr. Saroj Michel DO Primary Care Provider Active Start: November 23, 2024 End: November 23, 2024 Dr. Saroj Michel DO Referring Provider Active Start: November 23, 2024 End: November 23, 2024 Blu GUILLEN PA Attending Provider Active Start: November 23, 2024 End: November 23, 2024 Team Status: Active Member Role/Relationship Status Dates Dr. Saroj Michel DO Primary Care Provider Active Start: November 23, 2024 Blu GUILLEN PA Attending Provider Active Start: November 23, 2024 WILMER Rogers Referring Provider Active Start: November 23, 2024 Team Status: Inactive Member Role/Relationship Status Dates Dr. Saroj Michel DO Primary Care Provider Active Start: November 23, 2024 End: November 23, 2024 WILMER Rogers Attending Provider Active Start: November 23, 2024 End: November 23, 2024 WILMER Rogers Referring Provider Active Start: November 23, 2024 End: November 23, 2024 Credit Administration Officer Relationship Specialty Start Date End Date Saroj Michel DO [address] [place] [address] PCP - General Family Medicine 09/06/15 JessicaLuis Alfredo, CATEGORY SPECIALIST.PAINTING TECHNICIAN [address] [place] [address] [facility] 05/03/24 Adrianne Bishop, CATEGORY SPECIALIST.PAINTING TECHNICIAN [address] [place] [address] [facility] Credit Administration Officer Relationship Specialty Start Date End Date Saroj Michel DO [address] [place] [address] PCP - General Family Medicine 09/06/15 JessicaLuis Alfredo, CATEGORY SPECIALIST.PAINTING TECHNICIAN [address] [place] [address] [facility] 05/03/24 Adrianne Bishop, CATEGORY SPECIALIST.PAINTING TECHNICIAN [address] [place] [address] [facility]/09/24 Credit Administration Officer Relationship Specialty Start Date End Date Saroj Michel DO [address] [place] [address] PCP - General Family Medicine 09/06/15 Luis Alfredo Olivera, CATEGORY SPECIALIST.PAINTING TECHNICIAN [address] [place] [address] [facility] 05/03/24 Adrianne Bishop, CATEGORY SPECIALIST.PAINTING TECHNICIAN [address] [place] [address] [facility] 11/09/24 Credit Administration Officer Relationship Specialty Start Date End Date Saroj Michel DO [address] [place] [address] PCP - General Family Medicine 09/06/15 Luis Alfredo Olivera, CATEGORY SPECIALIST.PAINTING TECHNICIAN [address] [place] [address] [facility] 05/03/24 Adrianne Bishop, CATEGORY SPECIALIST.PAINTING TECHNICIAN [address] [place] [address] [facility] 11/09/24 Credit Administration Officer Relationship Specialty Start Date End Date Saroj Michel DO [address] [place] [address] PCP - General Family Medicine 09/06/15 Luis Alfredo Olivera, CATEGORY SPECIALIST.PAINTING TECHNICIAN [address] [place] [address] [facility] 05/03/24 Adrianne Bishop, CATEGORY SPECIALIST.PAINTING TECHNICIAN [address] [place] [address] [facility] 11/09/24 Goals (unrecognized section and content) Goals may be documented in a n alternate section FOR RECORDS PERTAINING TO PATIENTS WHO ARE [...] BE BASED ON THE PRIMARY CLINICAL RECORDS. [employer] [facility]. provides no warranty or guarantee of the accuracy or completeness of information in this document.
[2025-02-06 08:36] LABS: Follicle Stimulating Hormone 4.1 mIU/mL
== END | disposition home or self-care (01) ==
LOC: LAB 07:34
PROVIDERS: PCP Student in an Organized Health Care Education/Training Program
DX: E29.1 Testicular hypofunction (principal)
CPT/HCPCS: 83001